=== PATIENT | male | born 1940 | race Caucasian/White ===

== ENCOUNTER → 2017-08-19 08:13 | Outpatient (POV) | payer MEDICARE, SELFPAY | PROVIDERS: Visit Provider Physician Assistant | DX: Z00.00 Encounter for general adult medical examination without abnormal findings (principal) ==

== ENCOUNTER → 2017-11-14 11:49 | Outpatient (CLI) | payer MEDICARE, SELFPAY ==
[2017-11-14 13:38] LABS: Prostate Specific Ag, Diagnost 38.04 ng/mL (0.0-4.0)
== END ==
PROVIDERS: Visit Provider Urology
DX: R97.20 Elevated prostate specific antigen [PSA] (principal)
CPT/HCPCS: 36415; 84153

== ENCOUNTER → 2017-12-16 08:36 | Outpatient (CLI) | payer MEDICARE, SELFPAY ==
--- NOTE | 2017-12-16 08:43 | NM_ITS ---
NM bone scan whole body CLINICAL INDICATION: ITS.REASON: PROSTATE CA ORDERING PHYSICIAN: Kana Lopez MD PATIENT AGE: 77 years Comparison: None DOSE: 27.5 mCi technetium MDP FINDINGS: No focal abnormal areas of increased activity evident that would indicate metastatic disease. There is increased periarticular activity at the left AC joint and mild increase activity in the facet region at L4-L5 on the right. IMPRESSION: Unremarkable bone scan, no evidence of metastatic disease
== END ==
PROVIDERS: PCP Family Medicine; Visit Provider Urology
DX: C61 Malignant neoplasm of prostate (principal)
CPT/HCPCS: 78306; A9503

== ENCOUNTER → 2017-12-17 08:48 | Outpatient (CLI) | payer MEDICARE, SELFPAY ==
[2017-12-17 09:39] LABS: Blood Urea Nitrogen 20 mg/dL (7-18); Creatinine,Serum 1.04 mg/dL (0.70-1.30); Estimated Glomerular Filt Rate 69 ml/min (>60); GFR (African American) 84 ML/MIN (>60)
== END ==
PROVIDERS: Visit Provider Urology
DX: R39.89 Other symptoms and signs involving the genitourinary system (principal)
CPT/HCPCS: 36415; 82565; 84520

== ENCOUNTER → 2017-12-18 09:42 | Outpatient (CLI) | payer MEDICARE, SELFPAY ==
--- NOTE | 2017-12-18 10:14 | CT_ITS ---
CT abdomen pelvis w con CLINICAL INDICATION: ITS.REASON: PROSTATE CANCER ORDERING PHYSICIAN: Kana Lopez MD PATIENT AGE: 77 years COMPARISON: None TECHNIQUE: Axial images obtained with sagittal and coronal reformats. All CT scans at the facility use one or more dose reduction, viz: automated exposure control; ma/kV adjustment per patient size (including targeted exams where dose is matched to indication; i.e. head); or iterative reconstruction technique. PROCEDURE: Oral Contrast: Redicat IV Contrast: 75 mL of Isovue-370. FINDINGS: Images of the lung bases show cardiomegaly with coronary artery calcification. There has been a prior CABG. There is some mild vascular congestion. A subpleural nodular opacity is present in the left costophrenic angle measuring 7 mm. No focal liver lesion. The gallbladder, spleen, adrenal glands, pancreas, and kidneys have an unremarkable appearance. No renal or ureteral calculi or hydronephrosis. There is a moderate amount retained colonic feces. No intestinal obstruction or free air. Reported history of appendectomy. There are scattered diverticula within the sigmoid colon but no evidence of diverticulitis. The prostate is enlarged measuring 5.7 x 4.9 by centimeters transverse, AP, and cephalad to caudad. The left seminal vesicle slightly prominent. There is minimal thickening of the wall of the urinary bladder. There is a mildly prominent lymph node in the left pelvic region measuring 17 x 14 mm. This is just posterior to the left external iliac vein in the mid pelvic area medial to the lower ileum.. No bony destructive lesions. There is a small sclerotic focus in the right femoral head at 5 mm and could be due to small bone island. IMPRESSION: 1. Enlarged prostate. The prostate is somewhat more bulky on the left aspect. 2. Mildly prominent left sided pelvic lymph node posterior to the external iliac vein measuring 17 x 14 mm. 3. Sigmoid diverticulosis. No evidence of diverticulitis
--- NOTE | 2017-12-18 10:28 | HMH.ITSHM ---
ASPIRIN,ATENOLOL,CHLORTHALSIMVASTATIN,DOXASOIN,FINASTERIDE CARBIDOL LEVO
== END ==
PROVIDERS: PCP Family Medicine; Visit Provider Urology
DX: C61 Malignant neoplasm of prostate (principal)
CPT/HCPCS: 74177; Q9967

== ENCOUNTER → 2018-02-17 08:30 | Outpatient (POV) | payer MEDICARE, SELFPAY | PROVIDERS: PCP Family Medicine; Visit Provider Physician Assistant | DX: Z00.00 Encounter for general adult medical examination without abnormal findings (principal) ==

== ENCOUNTER → 2018-03-27 11:27 | Outpatient (CLI) | payer MEDICARE, SELFPAY ==
[2018-03-28 12:37] LABS: PSA, Free 0.02 ng/mL; Prostate Specific Ag 0.2 ng/mL (0.0-4.0)
== END ==
PROVIDERS: PCP Family Medicine; Visit Provider Urology
DX: C61 Malignant neoplasm of prostate (principal); N39.9 Disorder of urinary system, unspecified
CPT/HCPCS: 36415; 84153; 84154

== ENCOUNTER → 2018-05-29 11:54 | Outpatient (CLI) | payer MEDICARE, SELFPAY ==
[2018-05-29 12:42] LABS: Uric Acid 6.3 mg/dL (2.6-7.2)
== END ==
PROVIDERS: Visit Provider Urology
DX: M10.9 Gout, unspecified (principal)
CPT/HCPCS: 36415; 84550

== ENCOUNTER → 2018-08-19 08:06 | Outpatient (POV) | payer MEDICARE, SELFPAY | PROVIDERS: Visit Provider Dermatology | DX: Z00.00 Encounter for general adult medical examination without abnormal findings (principal) ==

== ENCOUNTER → 2018-10-15 14:42 | Outpatient (POV) | payer MEDICARE, SELFPAY | PROVIDERS: Visit Provider Family Medicine | DX: Z00.00 Encounter for general adult medical examination without abnormal findings (principal) ==

== ENCOUNTER → 2018-12-30 09:02 | Outpatient (POV) | payer MEDICARE, SELFPAY | PROVIDERS: Visit Provider Otolaryngology | DX: Z00.00 Encounter for general adult medical examination without abnormal findings (principal) ==

== ENCOUNTER → 2019-01-08 10:26 | Outpatient (CLI) | payer MEDICARE, SELFPAY ==
[2019-01-08 12:38] LABS: Prostate Specific Ag, Diagnost 0.01 ng/mL (0.0-4.0)
== END ==
PROVIDERS: Visit Provider Urology
DX: C61 Malignant neoplasm of prostate (principal)
CPT/HCPCS: 36415; 84153

== ENCOUNTER → 2019-02-17 08:07 | Outpatient (POV) | payer MEDICARE, SELFPAY | PROVIDERS: Visit Provider Dermatology | DX: Z00.00 Encounter for general adult medical examination without abnormal findings (principal) ==

== ENCOUNTER → 2019-02-17 08:46 | Outpatient (CLI) | payer MEDICARE, SELFPAY | PROVIDERS: PCP Family Medicine; Visit Provider Family Medicine | DX: R40.0 Somnolence (principal); G47.9 Sleep disorder, unspecified; G47.33 Obstructive sleep apnea (adult) (pediatric) | CPT/HCPCS: G0399 ==

== ENCOUNTER → 2019-02-18 13:18 | Outpatient (CLI) | payer MEDICARE, SELFPAY ==
--- NOTE | 2019-02-18 13:23 | XR_ITS ---
PROCEDURE: XR CHEST 2V CLINICAL HISTORY: RHEUMATOID ARTHRITIS,FATIGUE Fatigue, former smoker COMPARISON: No exams were available for comparison FINDINGS: Prior CABG. Normal heart size. Patchy density over the left heart border and may be due to pericardial fat pad. No lobar consolidation or collapse. There is an old left 8th rib fracture. IMPRESSION: No acute finding Dictated by: Dinh Barkley MD 02/18/2019 16:21 Signed by: <Electronically signed by Dinh Barkley MD in [facility]> 02/18/2019 16:21
== END ==
PROVIDERS: PCP Family Medicine; Visit Provider Internal Medicine
DX: M05.9 Rheumatoid arthritis with rheumatoid factor, unspecified (principal); R53.83 Other fatigue
CPT/HCPCS: 71046

== ENCOUNTER → 2019-04-17 09:52 | Outpatient (CLI) | payer MEDICARE, SELFPAY | PROVIDERS: PCP Family Medicine; Visit Provider Urology | DX: R42 Dizziness and giddiness (principal) | CPT/HCPCS: 93225 ==

== ENCOUNTER → 2019-04-27 07:20 | Outpatient (CLI) | payer MEDICARE, SELFPAY ==
--- NOTE | 2019-04-27 07:23 | CA_ITS ---
[facility] RADIOLOGICAL CONSULTATION Patient Name : ANA STOUT X-RAY # : [id number] Physician: AYUSH LORENZO AGE: 78Y : 1940 00:00:00 ( M ) Exam : CA ECHO DOPPLER COMPLETE ACC # : [id number] Study Date : 04/27/2019 09:40:32 Patient Class : O FINAL REPORT CLINICAL DATA: FINDINGS: TRANSCRIBED REPORT EXAM: Comprehensive 2D, Doppler, and color-flow Echocardiogram Luncheonette Operator: Consuelo Tipton RVT Ht: 6 ft 2 in Wt: 187lbs BSA: 2.11 BP: 167/62 mmHg Indications: Shortness of Breath, CAD, Hyperlipidemia, Hypertension,CABG,Ex smoker,ERIC 2D Dimensions LVOT 1.38 cm (M/F) 1.5-2.5 M-Mode Dimensions RVDd 2.04 cm (0.9-2.6) LVDd 5.22 cm (3.5-5.7) LVDs 2.79 cm (3.5-5.7) IVSd 1.07 cm (0.6-1.1) PWd 0.96 cm (0.6-1.1) EF (Teich) 77.60% FS 46.60% EDV (Teich) 130.70 mL ESV (Teich) 29.30 mL LV Diastology E/A Ratio 0.91 Mitral Valve MV A Velocity 54.00 (40-130 cm/s) Electronically signed by : IMPRESSION: Dictated by at Transcribed by at
--- NOTE | 2019-04-27 07:23 | NM_ITS ---
APPROVED REPORT Exam: Nuclear Stress Test Indication: SOB, Syncope, CAD, CABG, HTN, Family history Patient Location: Outpatient Stress Tech: Bibiana Pacheco DC Tech:Sophia Stone, ARRT, RT (R)(N) Ht: 6 ft 2 in Wt: 180 lbs HR: 53 bpm BP: 168/76 mmHg BSA: 2.08 m2 BMI: 23.1 History: SOB, Syncope, CAD, CABG, HTN, Family history Procedure: Patient received a 0.4 mg of intravenous Lexiscan, resting heart rate 53 bpm, resting blood pressure 168/76 mmHg, with Lexiscan maximum heart rate achived was 74 bpm which is % of the maximum predicted heart rate and blood pressure was 146/68 mmHg. With Lexiscan, patient denied any complaint of chest pain. Cardiac Stress and Resting SPECT Images: Cardiac Stress and Resting SPECT images were obtained using technetium 99m Myoview 30.1 mCi stress and 10.34 mCi at rest. Normal ejection fraction of 71% No fixed or reversible defects evident that would indicate infarction or ischemia No evidence of ischemia or infarction Conclusion: Normal ejection fraction of 71% No fixed or reversible defects evident that would indicate infarction or ischemia No evidence of ischemia or infarction Electronically signed by : Dinh Barkley MD 04/29/2019 15:52:50
--- NOTE | 2019-04-27 07:23 | CA_ITS ---
APPROVED REPORT Philosophy Specialist: Consuelo Tipton RVT Laterality: Bilateral Study Quality: Good Indications: dizziness, LEXI Risk Factors Hypertension: Hyperlipidemia CAD, Surgery/Intervention Endarterectomy: right Date: 2006 Doppler Spectral Velocity Analysis ECA (R) 76.00/3.50 cm/s ECA (L) 107.50/7.40 cm/s dICA (R) 93.50/21.80 cm/s dICA (L) 126.90/21.30 cm/s Gurpreet (R) 92.50/18.70 cm/s Gurpreet (L) 100.70/23.70 cm/s pICA (R) 101.40/18.20 cm/s pICA (L) 385.60/67.90 cm/s dCCA (R) 68.90/9.00 cm/s dCCA (L) 85.40/14.10 cm/s mCCA (R) 89.60/9.60 cm/s pCCA (L) 86.10/15.30 cm/s pCCA (R) 110.30/10.00 cm/s Vert (L) 46.70/8.80 cm/s Vert (R) 58.40/8.80 cm/s ICA/CCA 4.52 ICA/CCA 1.47 Findings Study suggests less than 20% stenosis of the right internal carotid artery, unchanged from 12/13/16 study. Study suggests 70-99% stenosis of the left internal carotid artery, worsened from the 12/13/16 study. Antegrade flow seen bilateral vertebral arteries. Conclusion Study suggests less than 20% stenosis of the right internal carotid artery, unchanged from 12/13/16 study. Study suggests 70-99% stenosis of the left internal carotid artery, worsened from the 12/13/16 study. Consider CTA for further evaluation Antegrade flow seen bilateral vertebral arteries. Electronically signed by : Dinh Barkley MD 04/29/2019 17:35:48
--- NOTE | 2019-04-27 07:23 | CA_ITS ---
APPROVED REPORT Exam: Pharmacologic Technologist: colleen dumont, Ht: 6 ft 2 in Wt: 180 lbs BSA: 2.08 m2 HR: 53 bpm BP: 168/76 mmHg Indications: SOB Medical History Medications: Asa,,,,, TAMSULOSIN,,,,, DOxazosin,,,,, Finasteride,,,,, EnBREL,,,,, Carbidopa,,,,, MegESTROL,,,,, AtenELOL,,,,, Mirabegron,,,,, Simvasatin,,,,, Leflunomide,,,,, Myrbetric,,,,, Allergies: No known drug allergies Cardiac Risk Factors: HTN, Hyperlipidemia Stress Test Details Test: LEXISCAN HR Resting HR: 57 bpm Max Heart Rate (APMHR): 142 bpm Max HR Achieved: 87 bpm Target HR (85% APMHR): 120 bpm % of APMHR: 61 BP Resting BP: 168.0/76.0 mmHg Max BP: 156.0/73.0 mmHg Recovery BP: 146.0/69.0 mmHg ECG Resting ECG: Sinus [place] Clinical Exercise duration: 04:00 min Highest Stage Achieved: Exercise capacity: 1.0 METs Stress ECG Conclusion Symptoms: No CP, No SOB Arrhythmias/Ectopy: Occ PAC, Occ Atrial Couplets, Occ PVC St-T Chages:less than 1.[address] depression. Lexiscan portion completed. Patient had no complaints at peak infusion. Images to follow. Test Summary REST 04:02 . . 57 . . . . Stage 1 01:00 . . 87 . . . . Stage 2 01:00 . . 73 . 146/ 68 . . Stage 3 01:00 . . 74 . 141/ 69 . . Stage 4 01:00 . . 71 . . . Stop exercise at 04:00 RECOVERY 01:00 . . 68 . 149/ 70 . . RECOVERY 02:00 . . 68 . 146/ 69 . . RECOVERY 03:00 . . 61 . 143/ 69 . . RECOVERY 04:00 . . 67 . 143/ 69 . . RECOVERY 04:49 . . 68 . 156/ 73 . . Electronically signed by : Malik Morin, 04/28/2019 08:32:06
--- NOTE | 2019-04-27 09:06 | HMH.ITSHM ---
Current Home Medications as stated by this patient Nicko Baumann or business process representative. []ATENOLOL DOXAZOSIN FINASTERIDE SIMVASTATIN TAMSULOSIN MYRBETRIQ CARBIDOPA LEFLUNOMIDE MEGACE PREDNISONE ASA ENBREL
== END ==
PROVIDERS: PCP Family Medicine; Visit Provider Internal Medicine
DX: C61 Malignant neoplasm of prostate (principal); E78.5 Hyperlipidemia, unspecified; G47.33 Obstructive sleep apnea (adult) (pediatric); I10 Essential (primary) hypertension; I25.810 Atherosclerosis of coronary artery bypass graft(s) without angina pectoris; I65.23 Occlusion and stenosis of bilateral carotid arteries; R06.09 Other forms of dyspnea; R42 Dizziness and giddiness; Z82.49 Family history of ischemic heart disease and other diseases of the circulatory system; Z87.891 Personal history of nicotine dependence; Z95.1 Presence of aortocoronary bypass graft; Z98.890 Other specified postprocedural states
CPT/HCPCS: 78452; 93017; 93306; 93880; A9502; J2785

== ENCOUNTER → 2019-05-19 13:08 | Outpatient (CLI) | payer MEDICARE, SELFPAY ==
[2019-05-19 16:01] LABS: Blood Urea Nitrogen 20 mg/dL (7-18); Creatinine,Serum 0.92 mg/dL (0.70-1.30); Estimated Glomerular Filt Rate 80 ml/min (>60); GFR (African American) 96 ML/MIN (>60)
== END ==
PROVIDERS: Visit Provider Thoracic Surgery (Cardiothoracic Vascular Surgery)
DX: Z01.818 Encounter for other preprocedural examination (principal)
CPT/HCPCS: 36415; 82565; 84520

== ENCOUNTER → 2019-05-20 10:12 | Outpatient (CLI) | payer MEDICARE, SELFPAY ==
--- NOTE | 2019-05-20 10:15 | CT_ITS ---
Procedure: CT ANGIO NECK CLINICAL HISTORY: CAROTID STENOSIS COMPARISON: CA CAROTID DUPLEX BI from 04/27/2019 TECHNIQUE: IV Contrast: 100ml Optiray 350 Axial images obtained with sagittal and coronal reformats. All CT scans at the facility use one or more dose reduction, viz: automated exposure control, ma/kV adjustment per patient size (including targeted exams where dose is matched to indication, i.e. head), or iterative reconstruction technique. FINDINGS: Aortic arch: There are some atheromatous changes at the aortic arch calcific plaque at the ostium of the right innominate artery causing approximately 30 percent stenosis. Right common carotid artery has an unremarkable appearance. There are atheromatous changes in the carotid bulb and proximal ICA with less than 20 percent stenosis the right ICA. No distal ICA stenosis is evident. Small amount of plaque is present at the proximal aspect of the right vertebral. Prominent calcific plaque is present involving the proximal left vertebral with high-grade stenosis of 80 percent in The left common carotid artery shows some minimal calcific plaque. Calcific plaque is present at the left bulb and proximal ICA however, no significant stenosis is evident. Approximately 20 percent stenosis is present at the proximal left ICA. Plaque is present at the ostium of the left external carotid artery. This is causing approximately 60-70 percent stenosis of the proximal external carotid artery. Perhaps this was inadvertently the artery of interrogation that was felt to represent the ICA on the duplex scan. There Is a noncalcified 7 mm nodule in the right upper lobe. Scarring is present in the lung apices. IMPRESSION: 1. No hemodynamic significant stenotic lesion evident. There is approximately 20 percent stenosis of the proximal ICAs on both sides. There is calcific plaque in the left bulb and there is 50 percent stenosis of the proximal external carotid artery on the left. 2. High-grade stenosis of the ostium of the left vertebral 3. 7 mm noncalcified nodule right upper lobe. Recommend six-month follow-up Dictated by: Dinh Barkley MD 05/20/2019 17:23 Electronically signed by Dinh Barkley MD in [facility] 05/21/2019 17:40
== END ==
PROVIDERS: PCP Family Medicine; Visit Provider Thoracic Surgery (Cardiothoracic Vascular Surgery)
DX: I65.23 Occlusion and stenosis of bilateral carotid arteries (principal)
CPT/HCPCS: 70498; Q9967

== ENCOUNTER → 2019-07-09 14:32 | Outpatient (CLI) | payer MEDICARE, SELFPAY ==
[2019-07-09 16:26] LABS: Prostate Specific Ag, Diagnost 0 ng/mL (0.0-4.0)
== END ==
PROVIDERS: Visit Provider Urology
DX: Z85.46 Personal history of malignant neoplasm of prostate (principal)
CPT/HCPCS: 36415; 84153

== ENCOUNTER → 2019-08-18 08:18 | Outpatient (POV) | payer MEDICARE, SELFPAY | PROVIDERS: Visit Provider Dermatology | DX: Z00.00 Encounter for general adult medical examination without abnormal findings (principal) ==

== ENCOUNTER → 2019-09-01 08:52 | Outpatient (POV) | payer MEDICARE, SELFPAY | PROVIDERS: PCP Family Medicine; Visit Provider Dermatology | DX: Z00.00 Encounter for general adult medical examination without abnormal findings (principal) ==

== ENCOUNTER → 2020-01-12 10:57 | Outpatient (CLI) | payer MEDICARE, SELFPAY ==
[2020-01-12 13:00] LABS: Prostate Specific Ag, Diagnost < 0.064 ng/ml (0.0-4.0)
== END ==
PROVIDERS: Visit Provider Urology
DX: C61 Malignant neoplasm of prostate (principal)
CPT/HCPCS: 36415; 84153

== ENCOUNTER → 2020-02-16 07:59 | Outpatient (POV) | payer MEDICARE, SELFPAY | PROVIDERS: Visit Provider Dermatology | DX: Z00.00 Encounter for general adult medical examination without abnormal findings (principal) ==

== ENCOUNTER → 2020-07-15 14:44 | Outpatient (CLI) | payer MEDICARE, SELFPAY ==
[2020-07-15 16:18] LABS: Prostate Specific Ag, Diagnost < 0.064 ng/ml (0.0-4.0)
== END ==
PROVIDERS: Visit Provider Urology
DX: C61 Malignant neoplasm of prostate (principal)
CPT/HCPCS: 36415; 84153

== ENCOUNTER → 2021-01-12 10:59 | Outpatient (CLI) | payer MEDICARE, SELFPAY ==
[2021-01-12 12:38] LABS: Prostate Specific Ag, Diagnost 0.091 ng/ml (0.0-4.0)
== END ==
PROVIDERS: Visit Provider Urology
DX: C61 Malignant neoplasm of prostate (principal)
CPT/HCPCS: 36415; 84153

== ENCOUNTER → 2021-06-07 12:59 | Outpatient (CLI) | payer MEDICARE, SELFPAY ==
--- NOTE | 2021-06-07 13:07 | XR_ITS ---
PROCEDURE: XR HIP RT 2-3V W/PELVIS CLINICAL INDICATION: RT HIP PAIN COMPARISON: No exams were available for comparison FINDINGS: Minimal osteoarthritic changes are present involving the right hip. No acute fracture or dislocation. No lytic or blastic change. AP view of the pelvis also shows minimal osteoarthritic change of the left hip. There is generalized vascular calcification. IMPRESSION: Mild osteoarthritis Dictated by: Dinh Barkley MD 06/07/2021 15:51 Dinh Barkley MD in [facility] 06/07/2021 15:51
== END ==
PROVIDERS: PCP Family Medicine; Visit Provider Family Medicine
DX: M25.551 Pain in right hip (principal)
CPT/HCPCS: 73502

== ENCOUNTER → 2021-07-17 15:08 | Outpatient (CLI) | payer MEDICARE, SELFPAY ==
[2021-07-17 16:43] LABS: Prostate Specific Ag, Diagnost 0.098 ng/ml (0.0-4.0)
== END ==
PROVIDERS: PCP Family Medicine; Visit Provider Urology
DX: C61 Malignant neoplasm of prostate (principal)
CPT/HCPCS: 36415; 84153

== ENCOUNTER 2021-07-28 08:00 | Outpatient (RCR) | payer MEDICARE, SELFPAY ==
--- NOTE | 2021-07-03 15:31 | HMH.PTOPEV ---
PT Outpatient Evaluation Rehab PT Outpatient Evaluation Start: 07/03/21 15:18 Freq: Status: Active Protocol: Document 07/03/21 15:18 MISSY (Rec: 07/03/21 15:31 MISSY [id number]) Electronically Signed By Michel Bruce, PT 07/03/21 15:18 Outpatient Therapy Subjective History Subjective History Pt reports insidious onset lateral right hip pain beginning ~6months ago. Pt reports RA diagnosis ~3 yrs ago, 'but the right hip is giving me the most trouble out of everything right now'. Pt reports left sidelying is painful on right lateral hip, and hip pain 'stays very localized'. Pt also reports ' injection only helped for a day'. Chief Complaint Pain,Stiff,Weakness Symptom Type Ache,Sharp,Dull,Stabbing Symptoms Relieved By Rest/Positioning,OTC Meds Symptoms Aggravated By Standing,Walking Prior Functional Limitations Standing,Squatting,Walking Current Functional Limitations Standing,Squatting,Walking Symptom Description Constant but Variable Level of pain today (0-10) 5 Pain scale - at its best (0-10) 3 Pain scale - at its worst (0-10) 8 Hip/Knee Eval Gait Observation General Gait Pattern Observation Antalgic Gait Assistive Device Assistive Devices None / NA Palpation Tenderness right Knee Palpation Overall Comment 3/4 grt. tro. MMT Hip Flexion Strength Grade 4- Good- Hip Abduction Strength Grade 3+ Fair+ Hip Adduction Strength Grade 3+ Fair+ Gluteus Elvin Strength Grade 4- Good- Hip External Rotation Strength Grade 4 Good Hip Internal Rotation Strength Grade 4 Good Knee Extension Strength Grade 5 Normal Knee Flexion Strength Grade 5 Normal ROM Hip Flexion w/Knee Flexed Passive Range 0-108 of Motion (degrees) Hip Flexion w/Knee Extended Passive 0-67 Range of Motion (degrees) Hip External Rotation Passive Range of 0-51 Motion (degrees) Hip Internal Rotation Passive Range of 0-46 Motion (degrees) Special Tests Hip Piriformis Test Negative Right Sciatic Nerve Tension Test Negative Right Hip Scouring (Quadrant) Test Negative Right Outpatient Therapy Assessment Impairments Problems/Impairmments Palpation Tenderness,Impaired Range of Motion,Impaired Strength,Impaired Gait Pattern ,Impaired Walking,Impaired S
== END 2021-07-28 08:05 | disposition home or self-care (01) ==
LOC: PT 08:00
PROVIDERS: PCP Family Medicine; Visit Provider Family Medicine
DX: M70.61 Trochanteric bursitis, right hip (principal)
CPT/HCPCS: 97010; 97014; 97033; 97035; 97110; 97163; G0283

== ENCOUNTER → 2021-07-31 12:44 | Outpatient (CLI) | payer MEDICARE, SELFPAY ==
[2021-08-01 06:50] LABS: Covid-19 Nasal PCR Sendout Lex POSITIVE
== END ==
PROVIDERS: Visit Provider Nurse Practitioner
DX: U07.1 COVID-19 (principal)
CPT/HCPCS: C9803; U0004; U0005

== ENCOUNTER 2021-08-12 10:22 | Emergency (ER) | payer MEDICARE, SELFPAY ==
[2021-08-12 10:19] VITALS: BP 142/70; PULSE 65; RESP 14; TEMP 36.7; O2SAT 99; BMI 23.1
--- NOTE | 2021-08-12 10:28 | CT_ITS ---
PROCEDURE INFORMATION: Exam: CT Lumbar Spine Without Contrast Exam date and time: 08/12/2021 10:28 AM Age: 81 years old Clinical indication: Low back pain; Additional info: Fell 3 weeks ago TECHNIQUE: Imaging protocol: Computed tomography images of the lumbar spine without contrast. Radiation optimization: All CT scans at this facility use at least one of these dose optimization techniques: automated exposure control; mA and/or kV adjustment per patient size (includes targeted exams where dose is matched to clinical indication); or iterative reconstruction. COMPARISON: BONEWB NM bone scan whole body 12/16/2017 1:17 PM FINDINGS: Vertebrae: Acute/subacute compression fracture involving the superior endplate of L1 with up to 50% central height loss and 3 mm bony retropulsion. Osteopenia. Discs/Spinal canal/Neural foramina: There is at least mild spinal canal stenosis at the level of L1 secondary to the retropulsed bone. There is a large right eccentric inferiorly dissecting disc extrusion at the level of L3-L4 effacing the right lateral recess and producing moderate to severe spinal canal stenosis. There is moderate to severe spinal canal stenosis at L4-L5 secondary to degenerative changes. Moderate to severe neural foraminal stenosis at L4-L5 and L5-S1 on the left. Soft tissues: Unremarkable. IMPRESSION: 1. Acute/subacute compression fracture involving the superior endplate L1 with up to 50% central height loss and 3 mm bony retropulsion resulting at least mild spinal stenosis. 2. Moderate to severe spinal canal stenosis at L3-L4 and L4-L5 secondary to degenerative changes including a large inferiorly dissecting disc extrusion at L3-L4.
[2021-08-12 10:30] VITALS: BP 125/58; PULSE 57; O2SAT 98
--- NOTE | 2021-08-12 10:30 | PC.NURSE ---
Notified Rad of CT order
--- NOTE | 2021-08-12 10:46 | HMH.EDGENADL ---
ED Disposition Clinical Impression: Lumbar disc disease Lumbar compression fracture Qualifiers: Encounter type: initial encounter Lumbar vertebra fracture level: L1 Qualified Code(s): S32.010A - Wedge compression fracture of first lumbar vertebra, initial encounter for closed fracture Disposition: Home, Self-Care Condition on Discharge: Fair Instructions: DI for Vertebral Fracture Additional Instructions: Continue to use walker. [place] as needed for pain. Follow-up with orthopedic spine surgeon: Dr. Mildred Quiroz [facility] [place] Office [address] [place] [address] OR [facility] [address], [place], [place] [id number] Additional instructions for BACK PAIN: Return immediately if back pain becomes intolerable, or if fever, numbness or weakness of your legs, loss of control of your bowels or bladder. Additional instructions for CONTROLLED SUBSTANCES: You have been prescribed a medication that is a controlled substance. Controlled substances include pain medications known as opiates and sedative nerve medications known as benzodiazepines. Tramadol, fioricet, and gabapentin are also controlled substances. Some common opiates include: Codeine (such as Tylenol #3) Hydrocodone (Vicodin, Lortab, Lorcet, [place]) Oxycodone (Percocet, Percodan, Oxycodone, Oxy IR) Some common benzodiazepines include: Diazepam (Valium) Lorazepam (Ativan) Alprazolam (Xanax) Clonazepam (Klonopin) Oxazepam (Serax) All of these controlled substances are highly addictive and frequently abused. Misuse can and frequently does lead to addiction as well as overdose and . Medication should be stored in a locked cabinet or other secure storage unit. Do not store the medication in a motor vehicle. Short term supplies, 3 days or less, are prescribed because of the highly addictive nature of the medication. Any of the controlled substance medication NOT taken should be disposed of properly and NOT SAVED. The recommended method of disposing of unused medications is: Place the medicines in a sealable plastic bag. If the medicine is a solid, crush it or add water to dissolve it. Add something undesirable (cat litter, coffee grounds, etc.) Dispose of sealed bag in household trash Do not flush or pour unused medicines down a sink or drain. Controlled substances should not be shared, given away or sold. Because of the addictive nature and frequent abuse, these medications are sometimes stolen. These medications should be kept in a safe place where they cannot be stolen. Do not keep them in your car or purse. Lost or stolen prescriptions for controlled substances WILL NOT BE REFILLED in this emergency department, regardless of whether a police report was filed. Prescriptions: Hydrocod/Acet 5/325 mg [[place] 5/325mg tablet] 1 tab PO Q6HP PRN #20 tab PRN Reason: Pain Transmission Status: Pending to [facility] Referrals: Pancho Singh MD [Primary Care Provider] - - Critical Care Critical Care Time: No Attestation: On 08/12/21, the high probability of a clinically significant, sudden or life threatening deterioration of the following system(s) required my full and direct attention, intervention and personal management. The time I documented below is in addition to time spent performing reported procedures but includes the following listed in this critical care notation. Medical Decision Making - Harlan Inquiry Pt receiving controlled substance: Yes [place] was queried for this patient: Yes Risks and benefits of using a controlled substance: were discussed with pt by me Vital Signs: 08/12/21 10:19 08/12/21 10:30 08/12/21 11:00 Temperature 98.0 F Temperature Source Oral Pulse Rate 57 L 63 Pulse Rate [Right Radial] 65 Respiratory Rate 14 Blood Pressure 125/58 L 142/72 H Blood Pr
[2021-08-12 11:00] VITALS: BP 142/72; PULSE 63; O2SAT 99
--- NOTE | 2021-08-12 11:19 | PC.NURSE ---
pt to CT scan
--- NOTE | 2021-08-12 11:29 | PC.NURSE ---
pt is back from CT scan
[2021-08-12 11:37] VITALS: BP 155/68; PULSE 56; O2SAT 99
[2021-08-12 12:00] VITALS: BP 129/60; PULSE 57; O2SAT 97
--- NOTE | 2021-08-12 12:34 | PC.NURSE ---
placed a call to [facility] to get phone manager Ortho Physician.
--- NOTE | 2021-08-12 12:39 | PC.NURSE ---
spoke with Rural Carrier Associate at [facility] about getting concrete batch plant operator MD for Ortho. Placed me on hold at this time.
--- NOTE | 2021-08-12 12:40 | PC.NURSE ---
product blending supervisor at [facility] had Dr. Alvarado from [facility] on for Dr. Mcallister to speak with. Dr. Mcallister speaking with him at this time.
--- NOTE | 2021-08-12 12:48 | PC.NURSE ---
COVID swab obtained and sent to the lab
--- NOTE | 2021-08-12 13:11 | PC.NURSE ---
assisted patient out into the car with family.
[2021-08-12 13:15] VITALS: BP 166/75; PULSE 67; RESP 16; TEMP 36.8; O2SAT 97
== END 2021-08-12 13:15 | disposition home or self-care (01) ==
PROVIDERS: Emergency Provider Emergency Medicine; PCP Family Medicine
DX: S32.010A Wedge compression fracture of first lumbar vertebra, initial encounter for closed fracture (principal); W01.0XXA Fall on same level from slipping, tripping and stumbling without subsequent striking against object, initial encounter; Y92.012 Bathroom of single-family (private) house as the place of occurrence of the external cause; I10 Essential (primary) hypertension; I25.10 Atherosclerotic heart disease of native coronary artery without angina pectoris; E78.5 Hyperlipidemia, unspecified
CPT/HCPCS: 72131; 99282

== ENCOUNTER 2021-10-24 11:00 | Outpatient (RCR) | payer MEDICARE, SELFPAY | END 2021-10-24 11:05 | disposition home or self-care (01) | LOC: PT 11:00 | PROVIDERS: PCP Family Medicine; Visit Provider Family Medicine | DX: M70.61 Trochanteric bursitis, right hip (principal) | CPT/HCPCS: 97110; 97140; 97163; 97760 ==

== ENCOUNTER → 2022-01-09 08:47 | Outpatient (POV) | payer MEDICARE, SELFPAY | PROVIDERS: Visit Provider Dermatology | DX: Z00.00 Encounter for general adult medical examination without abnormal findings (principal) ==

== ENCOUNTER → 2022-01-15 14:36 | Outpatient (CLI) | payer MEDICARE, SELFPAY ==
[2022-01-15 16:12] LABS: Prostate Specific Ag, Diagnost 0.186 ng/ml (0.0-4.0)
== END ==
PROVIDERS: PCP Nurse Practitioner Family; Visit Provider Urology
DX: C61 Malignant neoplasm of prostate (principal)
CPT/HCPCS: 36415; 84153

== ENCOUNTER → 2022-03-20 15:09 | Outpatient (POV) | payer MEDICARE, SELFPAY | PROVIDERS: Visit Provider Dermatology | DX: Z00.00 Encounter for general adult medical examination without abnormal findings (principal) ==

== ENCOUNTER → 2022-05-22 14:46 | Outpatient (POV) | payer MEDICARE, SELFPAY | PROVIDERS: Visit Provider Dermatology | DX: Z00.00 Encounter for general adult medical examination without abnormal findings (principal) ==

== ENCOUNTER 2022-07-01 21:57 | Emergency (ER) | payer MEDICARE, SELFPAY ==
[2022-07-01 21:57] VITALS: BP 138/61; PULSE 75; RESP 18; TEMP 36.7; O2SAT 97; BMI 23.1
--- NOTE | 2022-07-01 22:01 | ECG_ITS ---
APPROVED REPORT Exam: Resting ECG HR:74 bpm ECG Measurements Heart Rate 74 AXES QRSd 98 QRS 69 QT 392 T 74 QTc 420 Conclusion ATRIAL FIBRILLATION NONSPECIFIC ST & T-WAVE ABNORMALITY ABNORMAL RHYTHM ECG UNCONFIRMED REPORT Electronically signed by : Pancho Desai MD 07/02/2022 20:03:05
--- NOTE | 2022-07-01 22:04 | XR_ITS ---
PROCEDURE INFORMATION: Exam: XR Chest Exam date and time: 07/01/2022 10:20 PM Age: 82 years old Clinical indication: Other: Weakness TECHNIQUE: Imaging protocol: Radiologic exam of the chest. Views: 1 view. COMPARISON: CR XR CHEST 2V 02/18/2019 1:30 PM FINDINGS: Lungs: normal pulmonary vessels. Minimal patchy opacification left infrahilar region. No focal airspace consolidation. Pleural spaces: Unremarkable. No pleural effusion. No pneumothorax. Heart/Mediastinum: Mild cardiomegaly. Sternotomy wires. Bones/joints: See Heart/Mediastinum finding. IMPRESSION: 1. Mild cardiomegaly. Sternotomy wires. 2. Normal pulmonary vessels. 3. Minimal patchy opacification left infrahilar region. 4. No focal airspace consolidation.
--- NOTE | 2022-07-01 22:10 | CT_ITS ---
PROCEDURE INFORMATION: Exam: CT Lumbar Spine Without Contrast Exam date and time: 07/01/2022 10:45 PM Age: 82 years old Clinical indication: Numbness and weakness; Prior surgery; Surgery date: 6+ months; Additional info: Numbness bilateral lower exterminty TECHNIQUE: Imaging protocol: Computed tomography of the lumbar spine without contrast. Radiation optimization: All CT scans at this facility use at least one of these dose optimization techniques: automated exposure control; mA and/or kV adjustment per patient size (includes targeted exams where dose is matched to clinical indication); or iterative reconstruction. COMPARISON: CT LUMBAR SPINE WO CON 08/12/2021 11:21 AM FINDINGS: Bones/joints: L1 50% compression fracture with vertebroplasty cement seen. Multifocal areas facet arthropathy and ligamentum flavum thickening with apparent canal spinal stenosis at L3-L4, L4-L5 levels . Vasculature: The aorta demonstrates mild atherosclerotic calcification. Soft tissues: Unremarkable. IMPRESSION: 1. L1 50% compression fracture with vertebroplasty cement seen. 2. Multifocal areas facet arthropathy and ligamentum flavum thickening with apparent canal spinal stenosis at L3-L4, L4-L5 levels .
--- NOTE | 2022-07-01 22:10 | CT_ITS ---
PROCEDURE INFORMATION: Exam: CT Abdomen And Pelvis With Contrast Exam date and time: 07/01/2022 10:47 PM Age: 82 years old Clinical indication: Other: Numbness bilateral lower extermity; Additional info: Numbness bilateral lower exterminty. Additional history prostate cancer. TECHNIQUE: Imaging protocol: Computed tomography of the abdomen and pelvis with contrast. Radiation optimization: All CT scans at this facility use at least one of these dose optimization techniques: automated exposure control; mA and/or kV adjustment per patient size (includes targeted exams where dose is matched to clinical indication); or iterative reconstruction. Contrast material: ISOVUE; Contrast volume: 75 ml; Contrast route: IV; COMPARISON: ABDPELW CT abdomen pelvis w con 12/18/2017 10:21 AM FINDINGS: Heart: Cardiomegaly with moderate coronary artery calcifications. Sternotomy wires. Prior CABG. Mediastinal space: Distal esophageal wall thickening. Liver: Normal. No mass. Gallbladder and bile ducts: Multiple gallstones. Pancreas: Normal. No ductal dilation. Spleen: Normal. No splenomegaly. Adrenal glands: Normal. No mass. Kidneys and ureters: Normal. No hydronephrosis. Stomach and bowel: Scattered colonic diverticula. Appendix: No evidence of appendicitis. Intraperitoneal space: Unremarkable. No free air. No significant fluid collection. Vasculature: The aorta demonstrates moderate atherosclerotic calcification. Lymph nodes: Decreased size of left internal iliac node compared with 12/18/2017. Urinary bladder: Unremarkable as visualized. Reproductive: Stable prostatomegaly. Bones/joints: L1 50% compression fracture with vertebroplasty cement seen. Multifocal areas facet arthropathy and ligamentum flavum thickening with apparent canal spinal stenosis at L3-L4, L4-L5 levels Soft tissues: Small fat filled inguinal hernias. IMPRESSION: 1. No free air or fluid or adenopathy. 2. Distal esophageal wall thickening. 3. Multiple gallstones. 4. Stable prostatomegaly. 5. Decreased size of left internal iliac node compared with 12/18/2017. 6. L1 50% compression fracture with vertebroplasty cement seen. 7. Multifocal areas facet arthropathy and ligamentum flavum thickening with apparent canal spinal stenosis at L3-L4, L4-L5 levels. MRI recommended to further delineate these findings. 8. Other (less critical/noncritical/incidental) findings as above; please refer to the body of report for further details.
[2022-07-01 22:15] LABS: Basophils # 0.1 K/mm3 (0-0.2); Basophils % 1.5 % (0.1-2.0); Eosinophils # 0.1 K/mm3 (0.0-0.4); Eosinophils % 1.3 % (0.1-12.0); Hematocrit 38.8 % (42.0-52.0); Hemoglobin 13.1 g/dL (14.1-18.0); Lymphocytes # 2.4 K/mm3 (0.7-4.5); Lymphocytes % 51.4 % (10-50); Mean Corpuscular HGB Conc 33.7 g/dL (31.8-35.4); Mean Corpuscular Hemoglobin 30.6 pg (27.0-31.2); Mean Corpuscular Volume 90.8 fl (80-94); Mean Platelet Volume 8.5 fl (7.4-10.4); Monocytes # 0.9 K/mm3 (0.1-1.0); Monocytes % 18.4 % (1.7-9.3); Neutrophils # 1.3 K/mm3 (1.8-7.8); Neutrophils % 27.4 % (37.0-80.0); Platelet Count 208 K/mm3 (142-424); Red Blood Count 4.27 M/mm3 (4.60-6.20); Red Cell Distribution Width 13.9 % (11.5-17.5); White Blood Count 4.7 K/mm3 (4.8-10.8)
[2022-07-01 22:17] LABS: Chloride 99 mmol/L (98-107); Potassium 3.1 mmoL/L (3.5-5.1); Sodium 138 mmol/L (136-145)
[2022-07-01 22:20] LABS: Alanine Aminotransferase 29 U/L (12-78); Albumin Level 3.9 g/dl (3.5-5.0); Albumin/Globulin Ratio 1.1 (1.1-1.8); Alkaline Phosphatase 68 U/L (38-126); Anion Gap 11.1 mEq/L (5-15); Aspartate Amino Transferase 33 U/L (17-59); Bilirubin,Total 0.6 mg/dl (0.2-1.3); Blood Urea Nitrogen 23 mg/dl (9-20); Carbon Dioxide 31 mmol/L (22.0-30.0); Creatinine Clearance Estimated 66 mL/min (50-200); Estimated Glomerular Filt Rate 81 ml/min (>60); GFR (African American) 98 ML/MIN (>60); Globulin 3.5 g/dL (1.3-3.2); Glucose 159 mg/dl (74-100); Total Protein,Serum 7.4 g/dl (6.3-8.2)
[2022-07-01 22:21] LABS: Calcium 9.1 mg/dl (8.4-10.2)
[2022-07-01 22:22] LABS: Coronavirus 19, PCR Not Detected (NotDetected); Influenza A, PCR Not Detected (NotDetected); Influenza B, PCR Not Detected (NotDetected)
[2022-07-01 22:24] LABS: MANUAL DIFFERENTIAL MANUAL DIFFERENTIAL (MANUAL DIFF)
[2022-07-01 22:32] LABS: Troponin I < 0.01 ng/ml (0.00-0.034)
[2022-07-01 22:48] LABS: Microscopic, Urine URINE MICROSCOPIC (MICROSCOPIC)
[2022-07-01 23:00] VITALS: BP 139/60; PULSE 82; RESP 18; O2SAT 96
[2022-07-01 23:13] LABS: Appearance,Urine CLEAR (Clear); Bilirubin,Urine Negative (Negative); Blood, Urine Negative (Negative); Color,Urine YELLOW (Yellow); Glucose,Urine (UA) Negative (Negative); Ketones,Urine Negative (Negative); Leukocyte Esterase,Urine Negative (Negative); Nitrate,Urine Negative (Negative); Protein,Urine TRACE (Negative); Specific Gravity, Urine >= 1.030 (1.005-1.030); Urobilinogen,Urine 0.2 EU/dl (0.2)
[2022-07-01 23:23] LABS: RBC,Urine Occasional #/hpf (0-3); Squamous Epithelial Cell,Urine Occasional #/hpf (0-5); Uric Acid Crystals,Urine 1+ /lpf; WBC,Urine Occasional #/hpf (0-3)
[2022-07-01 23:31] VITALS: BP 113/53; PULSE 67; RESP 16; O2SAT 97
[2022-07-01 23:36] LABS: Eosinophils % 2 % (0-3); Lymphocytes % 53 % (10-50); Monocytes % 11 % (2-9); Neutrophils % 34 % (42-76); Total Cells Counted 100
[2022-07-01 23:37] LABS: Platelet Estimate Normal; RBC Morphology Normal
[2022-07-02] VITALS: BP 136/52; PULSE 71; RESP 17; O2SAT 96
--- NOTE | 2022-07-02 00:05 | HMH.EDWEAK ---
Discharge Plan Disposition Patient Disposition: Home, Self-Care Prescriptions Prescriptions: New prednisone [prednisone] 20 mg tablet 20 mg PO BID Qty: 10 0RF No Action bisoprolol fumarate 10 mg tablet 10 mg PO DAILY chlorthalidone 50 mg tablet 50 mg PO DAILY chlorthalidone 25 mg tablet 25 mg PO DAILY aspirin 81 mg tablet,delayed release (DR/EC) 81 mg PO DAILY simvastatin 10 mg tablet 10 mg PO QPM carbidopa-levodopa 25-250 mg tablet,disintegrating 1 tab PO DAILY doxazosin 4 mg tablet 2 mg PO QHS Enbrel 25 mg/0.5 mL (0.5) syringe 25 mg SQ QWEEK Myrbetriq 25 mg tablet extended release 24 hr 25 mg PO DAILY megestrol 20 mg tablet 10 mg PO DAILY leflunomide [Arava] 20 mg tablet 20 mg PO DAILY oxybutynin chloride 5 mg tablet 5 mg PO HS Qty: 90 3RF oxybutynin chloride 5 mg tablet 5 mg PO DAILY Qty: 90 3RF hydrocodone-acetaminophen 1 TAB tablet 1 tab PO Q6HP PRN (Reason: Pain) Qty: 20 0RF Referrals Follow up/Referrals: Trenton Mo MD [Primary Care Provider] - See instructions Clinical Impressions Clinical Impression: Lumbar disc disease, Acute hypokalemia, Neuropathy Instructions Patient Instructions: DI for Lumbar Radiculopathy Discharge ED Provider: Kye Linton Weakness HPI General Chief complaint: Weakness Stated complaint: numbness in leg, ams Time Seen by Provider: 07/01/22 22:30 Mode of Arrival: EMS Source of Information: Patient and EMS Limitations: No Limitations Description of Symptoms (Recalled from ER Triage Doc. by RN): EMS called out weakness and bilateral tinging and numbness in lower extermity. pt has appointment with neurologist. pt states he became weak yesterday. History of Present Illness HPI Narrative: pt with increased weakness and neuropathic pain sx to lower ext has hx of this and has pending neuro appt this week - no cauda equina sx - no fever/rash or trauma Complaint: generalized weakness, numbness and tingling Onset (ago): day(s) Duration: intermittent Location: LLE and RLE Migration: none Severity: moderate Quality: tingling Associated symptoms: denies other symptoms Related Data Home Medications Medication Instructions Recorded Confirmed aspirin 81 mg tablet,delayed 81 mg PO DAILY Heart disease 05/17/18 07/18/22 release carbidopa 25 mg-levodopa 250 mg 1 tab PO DAILY parkisons 11/14/17 01/15/22 disintegrating tablet simvastatin 10 mg tablet 10 mg PO QPM Cholesterol 11/14/17 01/15/22 doxazosin 4 mg tablet 2 mg PO QHS bladder 04/17/19 01/15/22 leflunomide 20 mg tablet (Arava) 20 mg PO DAILY 04/17/19 01/15/22 megestrol 20 mg tablet 10 mg PO DAILY 04/17/19 01/15/22 mirabegron 25 mg tablet,extended 25 mg PO DAILY 04/17/19 01/15/22 release 24 hr (Myrbetriq) etanercept 25 mg/0.5 mL (0.5 mL) 25 mg SQ QWEEK 07/09/19 01/15/22 subcutaneous syringe (Enbrel) bisoprolol fumarate 10 mg tablet 10 mg PO DAILY 01/12/20 01/15/22 chlorthalidone 25 mg tablet 25 mg PO DAILY 01/12/20 01/15/22 chlorthalidone 50 mg tablet 50 mg PO DAILY 01/12/20 01/15/22 Previous Rx's Medication Instructions Recorded oxybutynin chloride 5 mg tablet 5 mg PO HS #90 tabs 01/19/21 hydrocodone 5 mg-acetaminophen 325 1 tab PO Q6HP PRN Pain #20 tabs 08/12/21 mg tablet oxybutynin chloride 5 mg tablet 5 mg PO DAILY #90 tabs 02/21/22 prednisone 20 mg tablet 20 mg PO BID #10 tabs 07/02/22 Allergies Allergy/AdvReac Type Severity Reaction Status Date / Time No Known Allergies Allergy Verified 01/15/22 13:28 [facility] Disclaimer: The information contained in this section may have been updated after the patient was seen, as this information can be updated by other users. Medical History (Updated 07/02/22 @ 02:06 by Kye Linton MD) CAD (coronary artery disease) Carotid artery stenosis Dizziness Ex-smoker Family history of heart disease HLD (hyperlipidemia) HTN (hypertension) L
[2022-07-02 00:30] VITALS: BP 134/57; PULSE 73; RESP 16; O2SAT 94
[2022-07-02 01:00] VITALS: BP 134/59; PULSE 77; RESP 17; O2SAT 94
[2022-07-02 01:56] VITALS: BP 124/79; PULSE 70; RESP 16; TEMP 36.7; O2SAT 94
[2022-07-02 02:57] LABS: Erythrocyte Sedimentation Rate 85 mm/hr (0-20)
[2022-07-02 03:07] LABS: C-Reactive Protein 42.2 mg/L (0-4)
[2022-07-02 03:22] LABS: Procalcitonin 0.081 ng/mL (0.0-2.0); T4 (Thyroxine) 8.9 ug/dl (5.53-11.0)
[2022-07-02 03:35] LABS: Thyroid Stimulating Hormone 1.94 uIU/mL (0.465-4.68)
[2022-07-04 02:34] LABS: Peripheral Smear Review Scanned Result
== END 2022-07-02 02:14 | disposition home or self-care (01) ==
PROVIDERS: Emergency Provider Emergency Medicine; PCP Family Medicine
DX: R20.2 Paresthesia of skin (principal); E87.6 Hypokalemia; G62.9 Polyneuropathy, unspecified; M51.36 Other intervertebral disc degeneration, lumbar region; R53.1 Weakness; I25.10 Atherosclerotic heart disease of native coronary artery without angina pectoris; I65.29 Occlusion and stenosis of unspecified carotid artery; Z87.891 Personal history of nicotine dependence; Z82.49 Family history of ischemic heart disease and other diseases of the circulatory system; E78.5 Hyperlipidemia, unspecified; I10 Essential (primary) hypertension; G47.33 Obstructive sleep apnea (adult) (pediatric); Z85.46 Personal history of malignant neoplasm of prostate; Z20.822 Contact with and (suspected) exposure to COVID-19
CPT/HCPCS: 71045; 72131; 74177; 80053; 81001; 84145; 84436; 84443; 84484; 85007; 85025; 85651; 86140; 93005; 96361; 96374; 96375; 99285; C9803; Q9967; U0003; U0005

== ENCOUNTER → 2022-07-11 13:33 | Outpatient (CLI) | payer MEDICARE, SELFPAY ==
[2022-07-11 14:34] LABS: Hemoglobin A1C 5.8 % (4.0-6.0)
[2022-07-11 16:58] LABS: 25-OH Vitamin D, Total < 12.8 ng/mL (30-100)
[2022-07-18 14:17] LABS: Vitamin B6 4.8 ug/L (3.4-65.2)
== END ==
PROVIDERS: PCP Family Medicine; Visit Provider Nurse Practitioner
DX: E13.69 Other specified diabetes mellitus with other specified complication (principal); E55.9 Vitamin D deficiency, unspecified; R53.83 Other fatigue; G62.9 Polyneuropathy, unspecified
CPT/HCPCS: 36415; 82306; 83036; 84207

== ENCOUNTER → 2022-08-03 14:58 | Outpatient (CLI) | payer MEDICARE, SELFPAY ==
--- NOTE | 2022-08-03 15:03 | XR_ITS ---
FINAL REPORT CLINICAL HISTORY: DECREASED ROM - took off RA medicine Saturday - patient unable to straighten neck out -- best films possible FINDINGS: CERVICAL SPINE Six views demonstrate no acute fracture. There are mild degenerative changes. There is kyphosis centered at the cervical thoracic junction. There is no malalignment. IMPRESSION: Mild degenerative changes. Reviewed, Interpreted and Dictated by Cornell Le III, MD Transcribed by Makayla Browning Authenticated and . [facility]
== END ==
PROVIDERS: PCP Nurse Practitioner Family; Visit Provider Nurse Practitioner Family
DX: M54.2 Cervicalgia (principal); R29.898 Other symptoms and signs involving the musculoskeletal system
CPT/HCPCS: 72050

== ENCOUNTER → 2022-08-09 08:28 | Outpatient (CLI) | payer MEDICARE, SELFPAY ==
[2022-08-09 08:58] LABS: Basophils # 0.1 K/mm3 (0-0.2); Basophils % 2.1 % (0.1-2.0); Eosinophils # 0.3 K/mm3 (0.0-0.4); Eosinophils % 6.6 % (0.1-12.0); Hematocrit 40.4 % (42.0-52.0); Hemoglobin 13.1 g/dL (14.1-18.0); Lymphocytes # 2.4 K/mm3 (0.7-4.5); Lymphocytes % 52.5 % (10-50); Mean Corpuscular HGB Conc 32.5 g/dL (31.8-35.4); Mean Corpuscular Hemoglobin 29.5 pg (27.0-31.2); Mean Corpuscular Volume 90.9 fl (80-94); Mean Platelet Volume 7.8 fl (7.4-10.4); Monocytes # 0.4 K/mm3 (0.1-1.0); Monocytes % 7.5 % (1.7-9.3); Neutrophils # 1.4 K/mm3 (1.8-7.8); Neutrophils % 31.3 % (37.0-80.0); Platelet Count 289 K/mm3 (142-424); Red Blood Count 4.45 M/mm3 (4.60-6.20); Red Cell Distribution Width 14.7 % (11.5-17.5); White Blood Count 4.6 K/mm3 (4.8-10.8)
[2022-08-09 09:01] LABS: MANUAL DIFFERENTIAL MANUAL DIFFERENTIAL (MANUAL DIFF)
[2022-08-09 09:44] LABS: Eosinophils % 6 % (0-3); Lymphocytes % 54 % (10-50); Monocytes % 7 % (2-9); Neutrophils % 31 % (42-76); Platelet Estimate Normal; RBC Morphology Normal; Total Cells Counted 100
== END ==
PROVIDERS: PCP Nurse Practitioner Family; Visit Provider Internal Medicine Hematology & Oncology
DX: D70.9 Neutropenia, unspecified (principal)
CPT/HCPCS: 36415; 85007; 85025

== ENCOUNTER → 2022-08-31 08:34 | Outpatient (CLI) | payer MEDICARE, SELFPAY ==
[2022-08-31 10:11] LABS: Basophils # 0.1 K/mm3 (0-0.2); Basophils % 1.7 % (0.1-2.0); Eosinophils # 0.3 K/mm3 (0.0-0.4); Eosinophils % 5.7 % (0.1-12.0); Hematocrit 39.2 % (42.0-52.0); Hemoglobin 12.8 g/dL (14.1-18.0); Lymphocytes % 61.8 % (10-50); Mean Corpuscular HGB Conc 32.7 g/dL (31.8-35.4); Mean Corpuscular Hemoglobin 29.2 pg (27.0-31.2); Mean Corpuscular Volume 89.4 fl (80-94); Mean Platelet Volume 9.1 fl (7.4-10.4); Monocytes # 0.9 K/mm3 (0.1-1.0); Monocytes % 17.8 % (1.7-9.3); Neutrophils # 0.6 K/mm3 (1.8-7.8); Platelet Count 188 K/mm3 (142-424); Red Blood Count 4.38 M/mm3 (4.60-6.20); Red Cell Distribution Width 15.2 % (11.5-17.5); White Blood Count 4.9 K/mm3 (4.8-10.8)
[2022-08-31 10:12] LABS: Neutrophils % 13.1 % (37.0-80.0)
[2022-08-31 10:14] LABS: MANUAL DIFFERENTIAL MANUAL DIFFERENTIAL (MANUAL DIFF)
[2022-08-31 11:04] LABS: Lymphocytes % 66 % (10-50); Monocytes % 4 % (2-9); Neutrophils % 30 % (42-76); Platelet Estimate Normal; RBC Morphology Normal; Total Cells Counted 100
== END ==
PROVIDERS: PCP Nurse Practitioner Family; Visit Provider Internal Medicine Hematology & Oncology
DX: D70.9 Neutropenia, unspecified (principal)
CPT/HCPCS: 36415; 85007; 85025

== ENCOUNTER → 2022-09-24 14:06 | Outpatient (CLI) | payer MEDICARE, SELFPAY ==
--- NOTE | 2022-09-24 14:18 | XR_ITS ---
FINAL REPORT CLINICAL HISTORY: INJURY DUE TO FALL,RT LOWER EXT PAIN FINDINGS: AP and lateral views of the right tibia and fibula were obtained. There is no prior exam for comparison. There is no acute fracture of the right tibia or fibula. The knee and ankle appear intact. The soft tissues are normal. IMPRESSION: No acute osseous abnormality of the right tibia or fibula. Reviewed, Interpreted and Dictated by Bridgett Cameron MD Transcribed by Yelena Abernathy Authenticated and [facility]
--- NOTE | 2022-09-24 14:18 | XR_ITS ---
FINAL REPORT CLINICAL HISTORY: INJURY DUE TO FALL,RT LOWER EXT PAIN FINDINGS: AP, oblique, and lateral views of the right ankle were obtained. There is no prior exam for comparison. There is no fracture or dislocation. The ankle mortise is intact. There is degenerative joint disease. Mild soft tissue edema is noted. IMPRESSION: No acute osseous abnormality of the right ankle. Reviewed, Interpreted and Dictated by Bridgett Cameron MD Transcribed by Yelena Abernathy Authenticated and [facility]
--- NOTE | 2022-09-24 14:18 | XR_ITS ---
FINAL REPORT CLINICAL HISTORY: LT SHOULDER PAIN DUE TO FALL FINDINGS: Internal and external rotation views of the left shoulder were obtained. There is no prior exam for comparison. There is mild degenerative disease at the AC joint. There is no fracture or dislocation. Soft tissues are normal. IMPRESSION: No acute osseous abnormality of the left shoulder. Reviewed, Interpreted and Dictated by Bridgett Cameron MD Transcribed by Yelena Abernathy Authenticated and [facility]
== END ==
PROVIDERS: PCP Family Medicine; Visit Provider Nurse Practitioner Family
DX: M25.512 Pain in left shoulder (principal); M25.612 Stiffness of left shoulder, not elsewhere classified; M79.604 Pain in right leg; W19.XXXA Unspecified fall, initial encounter
CPT/HCPCS: 73030; 73590; 73610

== ENCOUNTER → 2022-10-03 07:11 | Outpatient (CLI) | payer MEDICARE, SELFPAY ==
--- NOTE | 2022-10-03 07:18 | CT_ITS ---
FINAL REPORT TECHNIQUE: multiple axial CT images were performed from the foramen magnum to the vertex without enhancement. CLINICAL HISTORY: LOSS OF BALANCE,DIZZINESS FINDINGS: There is moderate atrophy. There is proportional ventriculomegaly. There is abnormal decreased attenuation in the deep white matter. There is periventricular white matter change likely related to small vessel disease. There is no evidence of hemorrhage. No masses are identified. No extra-axial fluid is seen. The sinuses are normal. IMPRESSION: Moderate atrophy and changes of chronic ischemia without acute process. Reviewed, Interpreted and Dictated by Ulises Bush MD Transcribed by Kori Shankar Authenticated and [facility]
== END ==
PROVIDERS: PCP Family Medicine; Visit Provider Nurse Practitioner Family
DX: R42 Dizziness and giddiness (principal); R26.89 Other abnormalities of gait and mobility
CPT/HCPCS: 70450

== ENCOUNTER → 2022-12-12 13:19 | Outpatient (CLI) | payer MEDICARE, SELFPAY ==
[2022-12-12 14:17] LABS: Basophils % 0.6 % (0.1-2.0); Eosinophils # 0.4 K/mm3 (0.0-0.4); Eosinophils % 5.4 % (0.1-12.0); Hematocrit 38.5 % (42.0-52.0); Hemoglobin 12.5 g/dL (14.1-18.0); Lymphocytes # 3.7 K/mm3 (0.7-4.5); Lymphocytes % 57.4 % (10-50); Mean Corpuscular HGB Conc 32.5 g/dL (31.8-35.4); Mean Corpuscular Hemoglobin 26.9 pg (27.0-31.2); Mean Corpuscular Volume 82.9 fl (80-94); Mean Platelet Volume 8.2 fl (7.4-10.4); Monocytes # 0.7 K/mm3 (0.1-1.0); Monocytes % 10.3 % (1.7-9.3); Neutrophils # 1.7 K/mm3 (1.8-7.8); Neutrophils % 26.2 % (37.0-80.0); Platelet Count 195 K/mm3 (142-424); Red Blood Count 4.64 M/mm3 (4.60-6.20); Red Cell Distribution Width 15.6 % (11.5-17.5); White Blood Count 6.5 K/mm3 (4.8-10.8)
[2022-12-12 14:31] LABS: MANUAL DIFFERENTIAL MANUAL DIFFERENTIAL (MANUAL DIFF)
[2022-12-12 14:56] LABS: Erythrocyte Sedimentation Rate 63 mm/hr (0-20)
[2022-12-12 15:11] LABS: C-Reactive Protein 20.5 mg/L (0-4)
[2022-12-12 15:35] LABS: Eosinophils % 1 % (0-3); Hypochromasia 1+; Lymphocytes % 57 % (10-50); Monocytes % 7 % (2-9); Neutrophils % 35 % (42-76); Total Cells Counted 100
[2022-12-12 15:36] LABS: Platelet Estimate Normal
[2022-12-12 15:55] LABS: Vitamin B12 558 pg/mL (239-931)
== END ==
PROVIDERS: PCP Family Medicine; Visit Provider Internal Medicine Hematology & Oncology
DX: D70.9 Neutropenia, unspecified (principal)
CPT/HCPCS: 36415; 82607; 85007; 85025; 85651; 86140

== ENCOUNTER → 2023-03-05 13:22 | Outpatient (POV) | payer MEDICARE, SELFPAY | PROVIDERS: Visit Provider Dermatology | DX: Z00.00 Encounter for general adult medical examination without abnormal findings (principal) ==

== ENCOUNTER → 2023-03-07 12:50 | Outpatient (CLI) | payer MEDICARE, SELFPAY ==
--- NOTE | 2023-03-07 12:59 | US_ITS ---
FINAL REPORT CLINICAL HISTORY: NEUTROPENIA COMPARISON: None FINDINGS: LIMITED ULTRASOUND LEFT UPPER QUADRANT: The spleen is unremarkable in appearance without evidence of focal mass or enlargement. It measures 9.8 cm in length. The left kidney is also unremarkable in appearance, measuring 10.2 cm in length. No evidence of hydronephrosis or mass is seen. IMPRESSION: Unremarkable spleen and left kidney. Reviewed, Interpreted and Dictated by Cornell Le III, MD Transcribed by Amanda Gil Authenticated and [facility]
== END ==
PROVIDERS: PCP Family Medicine; Visit Provider Internal Medicine Hematology & Oncology
DX: D70.9 Neutropenia, unspecified (principal)
CPT/HCPCS: 76705

== ENCOUNTER → 2023-04-24 12:48 | Outpatient (CLI) | payer MEDICARE, SELFPAY ==
--- NOTE | 2023-04-24 12:53 | CA_ITS ---
FINAL REPORT TECHNIQUE: Color Doppler, duplex Doppler and dutton scale sonography of the bilateral neck arterial vasculature was performed. Velocities were measured in the carotid arteries. Stenosis evaluation based on the validated velocity criteria. CLINICAL HISTORY: Carotid arterial disease, Hx- Right Caroitd endartectomy FINDINGS: The peak systolic velocity of the right common carotid artery is 129 cm/s. The peak systolic velocity of the right internal carotid artery is 93 cm/s and end diastolic velocity 21 cm/s. The ICA/CCA ratio is 1.1. A moderate amount of plaque is present. The right external carotid artery is patent. The right vertebral artery is patent with antegrade flow. The peak systolic velocity of the left common carotid artery is 86 cm/s. The peak systolic velocity of the left internal carotid artery is 200 cm/s and end diastolic velocity 36 cm/s. The ICA/CCA ratio is 2.4. A moderate amount of plaque is present. The left external carotid artery is patent.The left vertebral artery is patent with antegrade flow. IMPRESSION: Less than 50% right carotid stenosis. 50-69% left carotid stenosis. Bilateral patent vertebral arteries with antegrade flow. If indicated, CTA or MRA could further evaluate. Reviewed, Interpreted and Dictated by Cornell Le III, MD Transcribed by Makayla Browning Authenticated and . [facility]
== END ==
PROVIDERS: PCP Nurse Practitioner Family; Visit Provider Nurse Practitioner Family
DX: I65.23 Occlusion and stenosis of bilateral carotid arteries (principal); Z98.890 Other specified postprocedural states
CPT/HCPCS: 93880

== ENCOUNTER → 2023-05-14 16:19 | Outpatient (CLI) | payer MEDICARE, SELFPAY ==
[2023-05-16 20:59] LABS: Occult Blood,Stool Positive (Negative)
== END ==
PROVIDERS: PCP Nurse Practitioner Family; Visit Provider Internal Medicine Hematology & Oncology
DX: R19.5 Other fecal abnormalities (principal)
CPT/HCPCS: 82272; G0328

== ENCOUNTER → 2023-05-15 14:45 | Outpatient (CLI) | payer MEDICARE, SELFPAY ==
--- NOTE | 2023-05-15 14:46 | CA_ITS ---
APPROVED REPORT EXAM: Comprehensive 2D, Doppler, and color-flow Echocardiogram Teletype Telegrapher: Consuelo Tipton RVT Ht: 6 ft 1 in Wt: 180lbs BSA: 2.06 BP: 130/68 mmHg Indications: DYSPENA,ERIC,CAD,HTN,CABG,,EX SMOKER,HLD 2D Dimensions LVOT 2.04 cm (M/F) 1.5-2.5 LA Volume 106.70 mL LA Volume Index 51.80 mL/m2 (M/F) 16-34 M-Mode Dimensions RVDd 3.22 cm (0.9-2.6) LA Diam 5.05 cm (1.9-4.0) LVDd 4.31 cm (3.5-5.7) Ao Diam 3.40 cm (2.0-3.7) LVDs 2.94 cm (3.5-5.7) IVSd 0.89 cm (0.6-1.1) PWd 0.85 cm (0.6-1.1) EF (Teich) 60.10% FS 31.80% EDV (Teich) 83.50 mL TAPSE 2.82 (<1.7) ESV (Teich) 33.30 mL LV Diastology E Decel Time 120.00 (160-240 msec) E/A Ratio 3.5 MED E' 5.20 (< 7 cm/sec) E'/MED E' Ratio 18.67 (>14) LAT E' 5.20 (<10 cm/sec) E/LAT E' Ratio 18.67 (>14) Aortic Valve LVOT Max 118.00 (70-110 cm/s) LVOT VTI 27.82 cm AoV Peak Santi. 177.00 (50-130 cm/s) AO Peak GR. 12.60 mmHg AO Mean GR. 5.90 (<5 mmHg) AO VTI 39.55 (18-25 cm) SUSANA (VTI) 2.30 (2.5-4.5 cm2) Mitral Valve MV E Max Santi. 97.00 (40-130 cm/s) MV A Velocity 28.00 (40-130 cm/s) E/A Ratio 3.52 MV Decel. Time 120.00 (160-240 ms) MV PHT 35.00 ms Pulmonary Valve PV Peak Velocity 72.00 (50-150 cm/s) Tricuspid Valve TR P. Velocity 388.00 cm/s RAP Estimate 10.00 mmHg RVSP 70.10 mmHg Left Ventricle The left ventricle is normal size. The left ventricular systolic function is normal. The left ventricular ejection fraction is within the normal range. There is increased LV wall thickness. Proximal septal thickening is noted. There is normal LV segmental wall motion. Grade 3 diastolic dysfunction is present. LVEF is 55%. Right Ventricle The right ventricle is mildly dilated. The right ventricular systolic function is normal. Atria The left atrium is moderately dilated. The right atrium is moderately dilated. The interatrial septum is not well-visualized. Aortic Valve The aortic valve is mildly thickened. There is no aortic valvular stenosis. Mild aortic regurgitation. Mitral Valve Mild mitral annular calcification. The mitral valve leaflets are mildly thickened. No evidence of mitral valve stenosis. Mild mitral regurgitation. Tricuspid Valve The tricuspid valve leaflets are thin and pliable. Mild to moderate tricuspid regurgitation. RVSP is 45 mmHg + RA pressure. Pulmonic Valve The pulmonary valve is normal in structure. Mild pulmonic regurgitation. Great Vessels The aortic root is normal in size. The ascending aorta is normal in size. The IVC is not well-visualized. Pericardium There is no pericardial effusion. Other Information Study Quality: Technically Difficult Conclusion This is a technically difficult study due to poor acoustic windows. Normal biventricular systolic function. Mild RV dilation. Moderate biatrial dilation. Mild MR, mild AI. Mild to moderate TR. Elevated RVSP (45 mmHg + RA pressure). Electronically signed by : Kandi Hahn MD 05/26/2023 20:22:44
== END ==
LOC: RT 14:46
PROVIDERS: PCP Nurse Practitioner Family; Visit Provider Internal Medicine
DX: C61 Malignant neoplasm of prostate (principal); E78.5 Hyperlipidemia, unspecified; I10 Essential (primary) hypertension; I25.810 Atherosclerosis of coronary artery bypass graft(s) without angina pectoris; I65.29 Occlusion and stenosis of unspecified carotid artery; R42 Dizziness and giddiness; Z87.891 Personal history of nicotine dependence; Z95.1 Presence of aortocoronary bypass graft; Z98.890 Other specified postprocedural states
CPT/HCPCS: 93306

== ENCOUNTER → 2023-05-15 16:20 | Outpatient (CLI) | payer MEDICARE, SELFPAY ==
[2023-05-16 21:00] LABS: Occult Blood,Stool Positive (Negative)
== END ==
PROVIDERS: PCP Nurse Practitioner Family; Visit Provider Internal Medicine Hematology & Oncology
DX: D64.9 Anemia, unspecified (principal); I25.810 Atherosclerosis of coronary artery bypass graft(s) without angina pectoris; R42 Dizziness and giddiness; R19.5 Other fecal abnormalities
CPT/HCPCS: 82272; 93306; G0328

== ENCOUNTER → 2023-05-16 16:11 | Outpatient (CLI) | payer MEDICARE, SELFPAY ==
[2023-05-16 16:48] LABS: Basophils % 0.8 % (0.1-2.0); Eosinophils % 0.4 % (0.1-12.0); Hematocrit 35.2 % (42.0-52.0); Hemoglobin 11.9 g/dL (14.1-18.0); Lymphocytes # 1.9 K/mm3 (0.7-4.5); Lymphocytes % 40.3 % (10-50); Mean Corpuscular HGB Conc 33.9 g/dL (31.8-35.4); Mean Corpuscular Hemoglobin 26.8 pg (27.0-31.2); Mean Corpuscular Volume 79.2 fl (80-94); Mean Platelet Volume 8.2 fl (7.4-10.4); Monocytes # 0.7 K/mm3 (0.1-1.0); Monocytes % 14.8 % (1.7-9.3); Neutrophils # 2.1 K/mm3 (1.8-7.8); Neutrophils % 43.7 % (37.0-80.0); Platelet Count 235 K/mm3 (142-424); Red Blood Count 4.44 M/mm3 (4.60-6.20); White Blood Count 4.7 K/mm3 (4.8-10.8)
[2023-05-16 18:14] LABS: Iron 175 ug/dL (49-181)
[2023-05-16 18:24] LABS: Total Iron Binding Capacity 333 ug/dL (261-462)
[2023-05-16 21:00] LABS: Occult Blood,Stool Positive (Negative)
== END ==
PROVIDERS: PCP Nurse Practitioner Family; Visit Provider Internal Medicine Hematology & Oncology
DX: D70.8 Other neutropenia (principal); K92.1 Melena
CPT/HCPCS: 36415; 82272; 82728; 83540; 83550; 85025; G0328

== ENCOUNTER 2023-06-21 11:58 | Observation (INO) | payer MEDICARE, SELFPAY ==
[2023-06-21] VITALS (8 sets, daily range): BP systolic 90–150; BP diastolic 36–70; PULSE 45–65; RESP 18–20; TEMP 36.6–36.9; O2SAT 95–99; BMI 23.7; BMI 23.6
--- NOTE | 2023-06-21 12:04 | ECG_ITS ---
APPROVED REPORT Exam: Resting ECG HR:44 bpm ECG Measurements Heart Rate 44 AXES VA 155 P 10 QRSd 89 QRS 49 QT 504 T 18 QTc 454 Conclusion SINUS BRADYCARDIA BORDERLINE ECG UNCONFIRMED REPORT Electronically signed by : Pancho Desai MD 06/21/2023 17:58:52
--- NOTE | 2023-06-21 12:17 | PC.NURSE ---
Dr. Child at BS for pt eval
--- NOTE | 2023-06-21 12:32 | HMH.EDGENADL ---
Discharge Plan Disposition Patient Disposition: Admitted Prescriptions Prescriptions: No Action bicalutamide 50 mg tablet 50 mg PO DAILY prednisone 5 mg tablet PO ferrous sulfate [FeroSul] 325 mg (65 mg iron) tablet 325 mg PO DAILY aspirin 81 mg tablet,delayed release (DR/EC) 81 mg PO DAILY oxybutynin chloride 10 mg tablet extended release 24hr PO cyanocobalamin (vitamin B-12) 1,000 mcg tablet 1,000 mcg PO DAILY Eligard (6 month) 45 mg syringe 45 mg SQ [id number] pregabalin 100 mg capsule 100 mg PO BID meloxicam 7.5 mg tablet 7.5 mg PO DAILY 90 Days Qty: 90 1RF Xarelto 2.5 mg tablet 2.5 mg PO BID Qty: 60 5RF bisoprolol fumarate 5 mg tablet 5 mg PO DAILY Qty: 30 2RF furosemide [Lasix] 20 mg tablet 20 mg PO DAILY Qty: 30 5RF levofloxacin 500 mg tablet 500 mg PO DAILY Qty: 30 0RF Referrals Follow up/Referrals: Josee Preciado APRN [Primary Care Provider] - See instructions Clinical Impressions Clinical Impression: Near syncope, Melena, Bradycardia, sinus Discharge ED Provider: La Child General Adult HPI General Chief complaint: Weakness Stated complaint: dizziness Time Seen by Provider: 06/21/23 12:12 Mode of Arrival: EMS Source of Information: Patient Limitations: No Limitations Description of Symptoms (Recalled from ER Triage Doc. by RN): pt to ed c/o generalized weakness, dark stools. per ems, pt's states he recently had a positive stool occult. History of Present Illness HPI narrative: Patient is an 82-year-old male with a history of prostate cancer in remission presents today with near syncopal episodes and dark tarry stool. States that he had a dark bowel movement a week ago has been followed by his oncologist who did some outpatient diagnostic testing and told him he had blood in his stool and was supposed to be being followed up by a pipeline systems operator but this has not yet happened. He had a colonoscopy within the last several years which was unremarkable but never had an endoscopy. Related Data Home Medications Medication Instructions Recorded Confirmed aspirin 81 mg tablet,delayed 81 mg PO DAILY Heart disease 11/14/17 06/03/23 release cyanocobalamin (vitamin B-12) 1,000 mcg PO DAILY 04/15/23 06/03/23 1,000 mcg tablet leuprolide acetate (6 month) 45 mg 45 mg SQ [id number] 04/15/23 06/03/23 (6 month) subcutaneous syringe (Elidivined) oxybutynin chloride 10 mg mg PO 04/15/23 06/03/23 tablet,extended release 24 hr pregabalin 100 mg capsule 100 mg PO BID 04/15/23 06/03/23 bicalutamide 50 mg tablet 50 mg PO DAILY 05/02/23 06/03/23 ferrous sulfate 325 mg (65 mg 325 mg PO DAILY 06/03/23 06/03/23 iron) tablet (FeroSul) prednisone 5 mg tablet mg PO 06/03/23 06/03/23 Previous Rx's Medication Instructions Recorded meloxicam 7.5 mg tablet 7.5 mg PO DAILY 90 days #90 tabs 04/15/23 bisoprolol fumarate 5 mg tablet 5 mg PO DAILY #30 tabs 05/02/23 furosemide 20 mg tablet (Lasix) 20 mg PO DAILY #30 tabs 05/02/23 levofloxacin 500 mg tablet 500 mg PO DAILY #30 tabs 05/02/23 rivaroxaban 2.5 mg tablet (Xarelto) 2.5 mg PO BID #60 tabs 05/02/23 Allergies Allergy/AdvReac Type Severity Reaction Status Date / Time No Known Allergies Allergy Verified 06/03/23 10:31 [facility] Disclaimer: The information contained in this section may have been updated after the patient was seen, as this information can be updated by other users. Medical History CAD (coronary artery disease) Carotid artery stenosis Dizziness Ex-smoker Family history of heart disease HLD (hyperlipidemia) HTN (hypertension) Left carotid bruit ERIC (obstructive sleep apnea) Paresthesias Prostate cancer Surgical History History of right-sided carotid endarterectomy Hx of CABG Social History (Reviewed 06/03/23 @ 10:30 by Lien
[2023-06-21 12:34] LABS: Basophils % 0.9 % (0.1-2.0); Chloride 108 mmol/L (98-107); Eosinophils # 0.3 K/mm3 (0.0-0.4); Eosinophils % 5.7 % (0.1-12.0); Hematocrit 35.7 % (42.0-52.0); Hemoglobin 11.7 g/dL (14.1-18.0); Lymphocytes % 41.3 % (10-50); Mean Corpuscular HGB Conc 32.6 g/dL (31.8-35.4); Mean Corpuscular Hemoglobin 27.8 pg (27.0-31.2); Mean Corpuscular Volume 85.2 fl (80-94); Mean Platelet Volume 8.6 fl (7.4-10.4); Monocytes # 0.5 K/mm3 (0.1-1.0); Monocytes % 10.4 % (1.7-9.3); Neutrophils % 41.7 % (37.0-80.0); Platelet Count 186 K/mm3 (142-424); Red Blood Count 4.19 M/mm3 (4.60-6.20); Red Cell Distribution Width 19.2 % (11.5-17.5); White Blood Count 4.8 K/mm3 (4.8-10.8)
[2023-06-21 12:35] LABS: Potassium 4.5 mmoL/L (3.5-5.1); Sodium 141 mmol/L (136-145)
[2023-06-21 12:37] LABS: Alanine Aminotransferase 16 U/L (12-78); Alkaline Phosphatase 60 U/L (38-126); Anion Gap 9.5 mEq/L (5-15); Aspartate Amino Transferase 33 U/L (17-59); Bilirubin,Total 0.4 mg/dl (0.2-1.3); Blood Urea Nitrogen 29 mg/dl (9-20); Carbon Dioxide 28 mmol/L (22.0-30.0); Creatinine Clearance Estimated 56 mL/min (50-200); Estimated Glomerular Filt Rate 58 ml/min (>60); GFR (African American) 70 ML/MIN (>60)
[2023-06-21 12:38] LABS: Albumin Level 3.5 g/dl (3.5-5.0); Albumin/Globulin Ratio 1.3 (1.1-1.8); Calcium 8.6 mg/dl (8.4-10.2); Globulin 2.7 g/dL (1.3-3.2); Glucose 169 mg/dl (74-100); Magnesium 2.1 mg/dl (1.6-2.3); Phosphorous 4.1 mg/dl (2.5-4.5); Total Protein,Serum 6.2 g/dl (6.3-8.2)
[2023-06-21 12:47] LABS: NT Pro Brain Natriuretic Pep. 768 pg/mL (0-450)
[2023-06-21 12:50] LABS: Troponin I < 0.01 ng/ml (0.00-0.034)
[2023-06-21 13:09] LABS: Thyroid Stimulating Hormone 4.43 uIU/mL (0.465-4.68)
--- NOTE | 2023-06-21 13:22 | PC.NURSE ---
called lab to come draw lactic acid and type and screen on patient
[2023-06-21 14:09] LABS: Lactic Acid 1.9 mmol/L (0.7-2.1)
--- NOTE | 2023-06-21 14:39 | PC.NURSE ---
paged general surgery for ER
--- NOTE | 2023-06-21 14:51 | PC.NURSE ---
Dr. Child s/w Dr. Dee
--- NOTE | 2023-06-21 15:04 | PC.NURSE ---
Dr. Child at BS to update pt/visitor on results and POC
--- NOTE | 2023-06-21 15:44 | HMH.PHAINT1 ---
Pharmacy Intervention Comments: MEDICATION RECONCILIATION COMPLETE USING LIST FROM MOST RECENT MD OFFICE VISIT AND EXTERNAL PHARMACY FILL HISTORY.
--- NOTE | 2023-06-21 16:09 | PC.NURSE ---
Called report to Kristine LONG an answered all questions
[2023-06-21 16:12] LABS: Troponin I < 0.01 ng/ml (0.00-0.034)
--- NOTE | 2023-06-21 17:43 | EXP.HP ---
History of Present Illness *Admission Date: 06/21/23 *Reason for visit:: Melena *History of present illness: Patient is a 82-year-old male with past medical history of PAD, CAD neuropathy, hypertension hyperlipidemia CAD who presented to hospital for dark tarry stools and having episode of dizziness, near syncope. Otherwise patient denies nausea vomiting abdominal pain chest pain shortness of breath fevers chills. 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 Patient had colonoscopy 2 years ago visit was found unremarkable for acute pathology. [facility] Disclaimer: The information contained in this section may have been updated after the patient was seen, as this information can be updated by other users. Medical History CAD (coronary artery disease) Carotid artery stenosis Dizziness Ex-smoker Family history of heart disease HLD (hyperlipidemia) HTN (hypertension) Left carotid bruit ERIC (obstructive sleep apnea) Paresthesias Prostate cancer Surgical History History of right-sided carotid endarterectomy Hx of CABG Family History (Updated 06/21/23 @ 16:19 by Aida Fisher, RN) Other No significant family history Social History (Updated 06/21/23 @ 16:19 by Aida Fisher, RN) Smoking Status: Never smoker alcohol intake: current substance use type: denies use current occupational status: employed and retired Travel in the last 8 weeks: None household members: spouse housing: house caffeine: No Review of Systems Review of Systems Review of systems (narrative): as per [facility] Meds Home Medications and Allergies Home Medications Medication Instructions Recorded Confirmed Type aspirin 81 mg tablet,delayed 81 mg PO DAILY Heart disease 11/14/17 06/21/23 History release cyanocobalamin (vitamin B-12) 1,000 mcg PO DAILY Supplement 04/15/23 06/21/23 History 1,000 mcg tablet leuprolide acetate (6 month) 45 mg 45 mg SQ .[id number] CHEMOTHERAPY 04/15/23 06/21/23 History (6 month) subcutaneous syringe (MaribelArria NLGsharron) oxybutynin chloride 10 mg 10 mg PO DAILY URINARY SYMPTOMS 04/15/23 06/21/23 History tablet,extended release 24 hr pregabalin 100 mg capsule 100 mg PO BID Pain 04/15/23 06/21/23 History bicalutamide 50 mg tablet 50 mg PO DAILY CHEMOTHERAPY 05/02/23 06/21/23 History ferrous sulfate 325 mg (65 mg 325 mg PO DAILY Supplement 06/03/23 06/21/23 History iron) tablet (FeroSul) prednisone 5 mg tablet 5 mg PO DAILY INFLAMMATION 06/03/23 06/21/23 History bisoprolol fumarate 5 mg tablet 5 mg PO DAILY High Blood Pressure 06/21/23 06/21/23 History furosemide 20 mg tablet (Lasix) 20 mg PO DAILY Fluid 06/21/23 06/21/23 History meloxicam 7.5 mg tablet 7.5 mg PO DAILY Pain 06/21/23 06/21/23 History rivaroxaban 2.5 mg tablet (Xarelto) 2.5 mg PO BID Blood Thinner 06/21/23 06/21/23 History New Prescriptions to Start Prescriptions: Allergies Allergy/AdvReac Type Severity Reaction Status Date / Time No Known Allergies Allergy Verified 06/21/23 16:26 Exam Data for Last 24 hours Vital signs and Labs for Last 24 Hours: Temp Pulse Resp BP Pulse Ox O2 Del Method 97.9 F 65 20 90/45 L 97 Room Air 06/21/23 16:22 06/21/23 16:22 06/21/23 16:22 06/21/23 16:22 06/21/23 16:00 06/21/23 16:22 Laboratory Results - last 24 hr 06/21/23 12:18: WBC 4.8, RBC 4.19 L, Hgb 11.7 L, Hct 35.7 L, MCV 85.2, MCH 27.8, MCHC 32.6, RDW 19.2 H, Plt Count 186, MPV 8.6, Neut % (Auto) 41.7, Lymph % (Auto) 41.3, [place] % (Auto) 10.4 H, Eos % (Auto) 5.7, Baso % (Auto) 0.9, Neut # (Auto) 2.0, Lymph # (Auto) 2.0, [place] # (Auto) 0.5, Eos # (Auto) 0.3, Baso # (Auto) 0.0, Sodium 141, Potassium 4.5, Chloride 108 H, Carbon Dioxide 28, Anion Gap 9.5, BUN 29 H, Creatinine 1.20, Estimated Creat Clear 56, Estimated GFR 58 L, Est GFR ( Amer) 70, Glucose 169 H, Calcium 8.6, Phosphorus 4.1, Magnesium 2.1, Total Biliru
[2023-06-21 19:05] LABS: Troponin I < 0.01 ng/ml (0.00-0.034)
[2023-06-22] VITALS (10 sets, daily range): BP systolic 100–150; BP diastolic 49–77; PULSE 49–63; RESP 16–18; TEMP 36.4–37.2; O2SAT 96–100; BMI 23.6
--- NOTE | 2023-06-22 05:25 | PC.NURSE ---
patient rested well this shift. One episode of tatty stools noted. Patient remains on RA with o2 sats greater than 90% Call pabon and personal items in reach.
[2023-06-22 07:34] LABS: Chloride 109 mmol/L (98-107)
[2023-06-22 07:35] LABS: Sodium 142 mmol/L (136-145)
[2023-06-22 07:37] LABS: Blood Urea Nitrogen 24 mg/dl (9-20); Creatinine Clearance Estimated 67 mL/min (50-200); Estimated Glomerular Filt Rate 81 ml/min (>60); GFR (African American) 98 ML/MIN (>60)
[2023-06-22 07:38] LABS: Calcium 8.9 mg/dl (8.4-10.2); Carbon Dioxide 25 mmol/L (22.0-30.0); Glucose 100 mg/dl (74-100)
[2023-06-22 07:41] LABS: Basophils % 0.7 % (0.1-2.0); Eosinophils # 0.1 K/mm3 (0.0-0.4); Eosinophils % 2.1 % (0.1-12.0); Hematocrit 36.4 % (42.0-52.0); Hemoglobin 12.2 g/dL (14.1-18.0); Lymphocytes # 2.3 K/mm3 (0.7-4.5); Lymphocytes % 43.4 % (10-50); Mean Corpuscular HGB Conc 33.4 g/dL (31.8-35.4); Mean Corpuscular Hemoglobin 27.8 pg (27.0-31.2); Mean Corpuscular Volume 83.1 fl (80-94); Mean Platelet Volume 8.3 fl (7.4-10.4); Monocytes # 0.5 K/mm3 (0.1-1.0); Monocytes % 9.3 % (1.7-9.3); Neutrophils # 2.4 K/mm3 (1.8-7.8); Neutrophils % 44.4 % (37.0-80.0); Platelet Count 184 K/mm3 (142-424); Red Blood Count 4.39 M/mm3 (4.60-6.20); White Blood Count 5.4 K/mm3 (4.8-10.8)
--- NOTE | 2023-06-22 08:39 | EXP.SURG.CON ---
History of Present Illness *Admission Date: 06/21/23 *Reason for visit:: Melena *History of present illness: This is an 82-year-old gentleman who presented emergency department with near syncopal episode and melena. Surgical service was consulted for esophagogastroduodenoscopy. Note that the patient is status post colonoscopy in September [address] Calvin Jasso with findings of diminutive descending colon polyp, left-sided diverticulosis, and grade 1 internal hemorrhoids. Recommendations for no further preventative/screening colonoscopies were made. A similar complaint of melena last week was discussed with the patient's oncologist. Subsequently, the patient reports that is scheduled to see Dr. Jasso in [facility] next week for further evaluation and management. Please see HPI forwarded from emergency department evaluation below. Forwarded from Emergency Department evaluation: Patient is an 82-year-old male with a history of prostate cancer in remission presents today with near syncopal episodes and dark tarry stool. States that he had a dark bowel movement a week ago has been followed by his oncologist who did some outpatient diagnostic testing and told him he had blood in his stool and was supposed to be being followed up by a outpatient physical therapist assistant but this has not yet happened. He had a colonoscopy within the last several years which was unremarkable but never had an endoscopy. [facility] Disclaimer: The information contained in this section may have been updated after the patient was seen, as this information can be updated by other users. Medical History CAD (coronary artery disease) Carotid artery stenosis Dizziness Ex-smoker Family history of heart disease HLD (hyperlipidemia) HTN (hypertension) Left carotid bruit ERIC (obstructive sleep apnea) Paresthesias Prostate cancer Surgical History History of right-sided carotid endarterectomy Hx of CABG Family History (Updated 06/21/23 @ 16:19 by Aida Fisher RN) No significant family history Social History (Updated 06/21/23 @ 16:19 by Aida Fisher, MERCEDES) Smoking Status: Never smoker alcohol intake: current substance use type: denies use current occupational status: employed and retired Travel in the last 8 weeks: None household members: spouse housing: house caffeine: No Meds Home Medications and Allergies Home Medications Medication Instructions Recorded Confirmed Type aspirin 81 mg tablet,delayed 81 mg PO DAILY Heart disease 11/14/17 06/21/23 History release cyanocobalamin (vitamin B-12) 1,000 mcg PO DAILY Supplement 04/15/23 06/21/23 History 1,000 mcg tablet leuprolide acetate (6 month) 45 mg 45 mg SQ [id number] CHEMOTHERAPY 04/15/23 06/21/23 History (6 month) subcutaneous syringe (Leon) oxybutynin chloride 10 mg 10 mg PO DAILY URINARY SYMPTOMS 04/15/23 06/21/23 History tablet,extended release 24 hr pregabalin 100 mg capsule 100 mg PO BID Pain 04/15/23 06/21/23 History bicalutamide 50 mg tablet 50 mg PO DAILY CHEMOTHERAPY 05/02/23 06/21/23 History ferrous sulfate 325 mg (65 mg 325 mg PO DAILY Supplement 06/03/23 06/21/23 History iron) tablet (FeroSul) prednisone 5 mg tablet 5 mg PO DAILY INFLAMMATION 06/03/23 06/21/23 History bisoprolol fumarate 5 mg tablet 5 mg PO DAILY High Blood Pressure 06/21/23 06/21/23 History furosemide 20 mg tablet (Lasix) 20 mg PO DAILY Fluid 06/21/23 06/21/23 History meloxicam 7.5 mg tablet 7.5 mg PO DAILY Pain 06/21/23 06/21/23 History rivaroxaban 2.5 mg tablet (Xarelto) 2.5 mg PO BID Blood Thinner 06/21/23 06/21/23 History New Prescriptions to Start Prescriptions: Allergies Allergy/AdvReac Type Severity Reaction Status Date / Time No Known Allergies Allergy Verified 06/21/23 16:26 Exam (Inpt) Vital signs and Labs for Last 24 Hours: Temp Pulse Resp BP Pulse O
--- NOTE | 2023-06-22 08:58 | P.PNANES_ITS ---
[facility] Disclaimer: The information contained in this section may have been updated after the patient was seen, as this information can be updated by other users. Medical History CAD (coronary artery disease) Carotid artery stenosis Dizziness Ex-smoker Family history of heart disease HLD (hyperlipidemia) HTN (hypertension) Left carotid bruit ERIC (obstructive sleep apnea) Paresthesias Prostate cancer Surgical History History of right-sided carotid endarterectomy Hx of CABG Family History (Updated 06/21/23 @ 16:19 by Aida Fisher, MERCEDES) Other No significant family history Social History (Updated 06/21/23 @ 16:19 by Aida Fisher, MERCEDES) Smoking Status: Never smoker alcohol intake: current substance use type: denies use current occupational status: employed and retired Travel in the last 8 weeks: None household members: spouse housing: house caffeine: No [facility] Anesthesia Checklist Patient Identification Patient Identification: Arm Band Structural Data Admitted From: Inpatient Planned Operative Procedure/s: EGD Consent for Planned Operative Procedure(s) Verified: Yes Verified Documents: Surgical Consent and History and Physical NPO Status Verified Time NPO: 00:00 Additional verifications Anesthesia Reactions: No Hx Blood Transfusions: No Blood Transfusion Reaction: No Airway Assessment Mallampati Score:: Class II C-Spine Mobility Assessed: Yes TMJ Mobility Assessed: Yes Dentition: Edentulous Neurological Assessment Level of Consciousness: Awake and Alert Anesthesia Plan Anesthesia Risk discussed: Yes Anesthesia Plan: Verified ASA Class: III Anesthesia Type: MAC
--- NOTE | 2023-06-22 09:18 | HMH.SCOPE ---
Procedure: Date: 06/22/23 Patient Date of :: 1940 Procedure Performed:: Esophagogastroduodenoscopy with biopsy and clip placement Indications:: Melena Performing Provider:: Darrell Dee MD Referring Provider:: . Sedation:: Monitored anesthesia care Procedure:: After informed consent was obtained the patient was taken to the endoscopy suite. Sedation ensued after the patient was transferred to the left lateral decubitus position. Pulse, blood pressure, and oxygen saturation were monitored throughout the procedure. The endoscope was advanced beyond the duodenal bulb. Retroflexion within the gastric lumen was accomplished. The gastroscope was carefully removed and the patient was transferred to recovery in stable condition. Please see findings and specimens below for detail. Findings:: No evidence of active hemorrhage Small shallow ulcer in proximal/mid gastric body (tiny central clot noted) Biopsy of ulcer margin Resolution 360 Hemoclip placed at ulcer site after biopsy completed Specimens:: Proximal/mid gastric body ulcer margin Recommendations:: Proton pump inhibition Maintain ongoing outpatient follow-up as scheduled next week with Dr. Calvin Jasso in [facility] Complications:: No immediate Estimated blood obtained (mL): 1 Colonoscopy Component Colonoscopy Component Was a colonoscopy performed during today's procedure?: No
--- NOTE | 2023-06-22 11:33 | EXP.DC.SUM ---
General Admission date:: 06/21/23 Discharge date: 06/22/23 HPI HPI HPI: This is an 82-year-old gentleman who presented emergency department with near syncopal episode and melena. Surgical service was consulted for esophagogastroduodenoscopy. Note that the patient is status post colonoscopy in September [address] Calvin Jasso with findings of diminutive descending colon polyp, left-sided diverticulosis, and grade 1 internal hemorrhoids. Recommendations for no further preventative/screening colonoscopies were made. A similar complaint of melena last week was discussed with the patient's oncologist. Subsequently, the patient reports that is scheduled to see Dr. Jasso in [place] next week for further evaluation and management. Please see HPI forwarded from emergency department evaluation below. Forwarded from Emergency Department evaluation: Patient is an 82-year-old male with a history of prostate cancer in remission presents today with near syncopal episodes and dark tarry stool. States that he had a dark bowel movement a week ago has been followed by his oncologist who did some outpatient diagnostic testing and told him he had blood in his stool and was supposed to be being followed up by a turf grower but this has not yet happened. He had a colonoscopy within the last several years which was unremarkable but never had an endoscopy. Hospital Course Hospital Course Hospital Course: Patient was seen and evaluated at the bedside on the day of discharge. Patient is stable for discharge. Patient wishes to be discharged. All patient questions were answered and patient was given time to ask questions. Patient was discharged in stable condition. Patient understands that she can return to ER in case of any sudden changes in health. Total time spent on DC - 38 mins Patient is a 82-year-old male with past medical history of PAD, CAD neuropathy, hypertension hyperlipidemia CAD who presented to hospital for dark tarry stools and having episode of dizziness, near syncope. Otherwise patient denies nausea vomiting abdominal pain chest pain shortness of breath fevers chills. Patient does not have turf grower. Patient had colonoscopy 2 years ago visit was found unremarkable for acute pathology. Assessment Black tarry stool, suspected upper GI bleed Dizziness, near syncope CAD PAD Hypertension Hyperlipidemia s/p EGD, Please see findings and specimens below for detail. Findings:: No evidence of active hemorrhage Small shallow ulcer in proximal/mid gastric body (tiny central clot noted) Biopsy of ulcer margin Resolution 360 Hemoclip placed at ulcer site after biopsy completed Specimens:: Proximal/mid gastric body ulcer margin Recommendations:: Proton pump inhibition Exam Data for Last 24 hours Vital signs and Labs for Last 24 Hours: Temp Pulse Resp BP Pulse Ox O2 Del Method O2 Flow Rate 97.5 F L 52 L 16 145/64 H 99 Room Air 5 06/22/23 11:00 06/22/23 11:00 06/22/23 11:00 06/22/23 11:00 06/22/23 11:00 06/22/23 11:00 06/22/23 09:25 Laboratory Results - last 24 hr 06/21/23 12:18: WBC 4.8, RBC 4.19 L, Hgb 11.7 L, Hct 35.7 L, MCV 85.2, MCH 27.8, MCHC 32.6, RDW 19.2 H, Plt Count 186, MPV 8.6, Neut % (Auto) 41.7, Lymph % (Auto) 41.3, Kaufman % (Auto) 10.4 H, Eos % (Auto) 5.7, Baso % (Auto) 0.9, Neut # (Auto) 2.0, Lymph # (Auto) 2.0, Kaufman # (Auto) 0.5, Eos # (Auto) 0.3, Baso # (Auto) 0.0, Sodium 141, Potassium 4.5, Chloride 108 H, Carbon Dioxide 28, Anion Gap 9.5, BUN 29 H, Creatinine 1.20, Estimated Creat Clear 56, Estimated GFR 58 L, Est GFR ( Amer) 70, Glucose 169 H, Calcium 8.6, Phosphorus 4.1, Magnesium 2.1, Total Bilirubin 0.4, AST 33, ALT 16, Alkaline Phosphatase 60, Troponin I < 0.01, NT-Pro-B Natriuret Pep 768 H, Total Protein 6.2 L, Albumin 3.5, Globulin 2.7, Albumin/Globulin Ratio 1.3, TSH 4.43 06/21/23 13:39: Lactate 1.9, Blood Type O Positive, Antibody Screen Negative
--- NOTE | 2023-06-25 13:31 | SW/DCPLANNER ---
Follow up phone call w/ this patient: patient stated that he is doing well at home and does not have any needs/questions at this time.
== END 2023-06-22 12:56 | disposition home or self-care (01) ==
LOC: ER 15:08 → 2ND 15:33
PROVIDERS: Surgery; Admitting Provider Internal Medicine; Emergency Provider Student in an Organized Health Care Education/Training Program; PCP Nurse Practitioner Family; Visit Provider Internal Medicine
PROC: 0DJ08ZZ Inspection of Upper Intestinal Tract, Via Natural or Artificial Opening Endoscopic (ICD-10-PCS; CPT 43235; principal; 2023-06-22 08:45)
DX: K25.4 Chronic or unspecified gastric ulcer with hemorrhage (principal); R55 Syncope and collapse; R00.1 Bradycardia, unspecified; Z95.1 Presence of aortocoronary bypass graft; Z79.818 Long term (current) use of other agents affecting estrogen receptors and estrogen levels; Z79.899 Other long term (current) drug therapy; Z79.01 Long term (current) use of anticoagulants; I10 Essential (primary) hypertension; I25.10 Atherosclerotic heart disease of native coronary artery without angina pectoris; E78.5 Hyperlipidemia, unspecified; C61 Malignant neoplasm of prostate; R06.9 Unspecified abnormalities of breathing; Z86.010 Personal history of colon polyps
CPT/HCPCS: 43239; 80048; 80053; 83605; 83735; 83880; 84100; 84443; 84484; 85025; 86850; 88305; 93005; 99285; G0378

== ENCOUNTER 2023-08-06 15:03 | Outpatient (CLI) | payer MEDICARE, SELFPAY ==
--- NOTE | 2023-08-06 15:12 | XR_ITS ---
FINAL REPORT CLINICAL HISTORY: Acute lower back pain COMPARISON: None FINDINGS: 3 views of the lumbar spine were obtained. There is a moderate L1 compression fracture with changes from kyphoplasty. No other fracture identified. There is mild and moderate degenerative change. Moderate vascular calcifications are noted. There is leftward curvature of the lumbar spine. IMPRESSION: No acute bony abnormality. Reviewed, Interpreted and Dictated by Cornell Le III, MD Transcribed by Yadira López Authenticated and [facility]
== END 2023-08-06 23:59 ==
LOC: RAD 15:04
PROVIDERS: PCP Nurse Practitioner Family; Visit Provider Nurse Practitioner Family
DX: M54.50 Low back pain, unspecified (principal)
CPT/HCPCS: 72100

== ENCOUNTER 2023-08-07 08:23 | Outpatient (CLI) | payer MEDICARE, SELFPAY ==
[2023-08-07 08:36] LABS: Microscopic, Urine URINE MICROSCOPIC (MICROSCOPIC)
[2023-08-07 08:50] LABS: Appearance,Urine CLEAR (Clear); Bilirubin,Urine Negative (Negative); Blood, Urine Negative (Negative); Color,Urine YELLOW (Yellow); Glucose,Urine (UA) Negative (Negative); Ketones,Urine Negative (Negative); Leukocyte Esterase,Urine Negative (Negative); Nitrate,Urine Negative (Negative); Protein,Urine Negative (Negative); Urobilinogen,Urine 0.2 EU/dl (0.2)
[2023-08-07 10:18] LABS: Squamous Epithelial Cell,Urine Occasional #/hpf (0-5); WBC,Urine Occasional #/hpf (0-3)
== END 2023-08-07 23:59 ==
LOC: LAB.DROPOF 08:24
PROVIDERS: PCP Nurse Practitioner Family; Visit Provider Nurse Practitioner Family
DX: M54.59 Other low back pain (principal)
CPT/HCPCS: 81001

== ENCOUNTER 2023-08-30 17:01 | Emergency (ER) | payer MEDICARE, SELFPAY ==
[2023-08-30] VITALS (7 sets, daily range): BP systolic 156–175; BP diastolic 67–82; PULSE 65–76; RESP 16–18; TEMP 36.8; O2SAT 96–100; BMI 22.4
--- NOTE | 2023-08-30 17:23 | PC.NURSE ---
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
--- NOTE | 2023-08-30 17:25 | MR_ITS ---
PROCEDURE INFORMATION: Exam: MR Lumbar Spine Without Contrast Exam date and time: 08/30/2023 5:44 PM Age: 83 years old Clinical indication: Weakness; Additional info: Le weakness, bladder overflow incontinence TECHNIQUE: Imaging protocol: Magnetic resonance imaging of the lumbar spine without contrast. COMPARISON: CT LUMBAR SPINE WO CON 07/01/2022 10:45 PM FINDINGS: Bones/joints: Postsurgical changes of L1 status post vertebroplasty with approximately 50% loss of height. T2/stir hyperintense signal changes of L4 with horizontal decreased normal T1 signal and loss of vertebral body height compatible with compression fracture resulting in 50% central height loss. Spinal cord: Visualized cord, conus medullaris and cauda equina are unremarkable without compression. L1-L2: L1-L2 small posterior disc protrusion combined with facet osteophytosis and ligamentum flavum thickening results in mild bilateral neural foraminal stenosis. L2-L3: L2-L3 moderate broad-based posterior disc protrusion combined with facet osteophytosis and ligamentum flavum redundancy results in moderate bilateral neural foraminal stenosis. L3-L4: L3-L4 small broad-based posterior disc protrusion with endplate and facet osteophytosis with ligamentum flavum redundancy results in moderate bilateral neural foraminal stenosis, and severe spinal canal stenosis with minimal CSF fluid surrounding the cauda equina. L4-L5: L4-L5 moderate broad-based posterior disc protrusion with facet osteophytosis and ligamentum flavum redundancy results in severe bilateral neural foraminal stenosis, and severe spinal canal stenosis with minimal CSF fluid surrounding the clotted finer. L5-S1: L5-S1 small broad-based posterior disc protrusion with facet osteophytosis results in moderate bilateral neural foraminal stenosis without significant spinal canal stenosis Soft tissues: Unremarkable. IMPRESSION: 1. T2/STIR hyperintense signal changes of L4 with horizontal decreased normal T1 signal and loss of vertebral body height compatible with compression fracture resulting in 50% central height loss. 2. L3-L4 small broad-based posterior disc protrusion with endplate and facet osteophytosis with ligamentum flavum redundancy results in moderate bilateral neural foraminal stenosis, and severe spinal canal stenosis with minimal CSF fluid surrounding the cauda equina. 3. L4-L5 moderate broad-based posterior disc protrusion with facet osteophytosis and ligamentum flavum redundancy results in severe bilateral neural foraminal stenosis, and severe spinal canal stenosis with minimal CSF fluid surrounding the clotted finer.
--- NOTE | 2023-08-30 17:30 | PC.NURSE ---
PT PREPPED FOR MRI
[2023-08-30 17:32] LABS: Microscopic, Urine URINE MICROSCOPIC (MICROSCOPIC)
--- NOTE | 2023-08-30 17:36 | PC.NURSE ---
CANDY CATCHER AT BEDSIDE TO TAKE PT TO MRI
[2023-08-30 17:38] LABS: Appearance,Urine CLEAR (Clear); Bilirubin,Urine Negative (Negative); Blood, Urine Negative (Negative); Color,Urine YELLOW (Yellow); Glucose,Urine (UA) Negative (Negative); Ketones,Urine Negative (Negative); Leukocyte Esterase,Urine Negative (Negative); Nitrate,Urine Negative (Negative); PH,Urine 5.5 (5.0-8.5); Protein,Urine Negative (Negative); Specific Gravity, Urine 1.025 (1.005-1.030); Urobilinogen,Urine 0.2 EU/dl (0.2)
--- NOTE | 2023-08-30 17:39 | ED_ITS ---
Discharge Plan Disposition Patient Disposition: Xfer Short-Term Hosp Chief Complaint: Weakness Prescriptions Prescriptions: No Action bicalutamide 50 mg tablet 50 mg PO DAILY prednisone 5 mg tablet 5 mg PO DAILY ferrous sulfate [FeroSul] 325 mg (65 mg iron) tablet 325 mg PO DAILY aspirin 81 mg tablet,delayed release (DR/EC) 81 mg PO DAILY Hold Instructions: Resume on 06/25/23. if you noticed black colored stools, contact your PCP or come to emergency dept oxybutynin chloride 10 mg tablet extended release 24hr 10 mg PO DAILY cyanocobalamin (vitamin B-12) 1,000 mcg tablet 1,000 mcg PO DAILY pregabalin 100 mg capsule 100 mg PO BID bisoprolol fumarate 5 mg tablet 5 mg PO DAILY levofloxacin 500 mg tablet 500 mg PO DAILY furosemide [Lasix] 20 mg tablet 20 mg PO DAILY Referrals Follow up/Referrals: Josee Preciado APRN [Primary Care Provider] - See instructions Clinical Impressions Clinical Impression: Spinal cord compression, Cauda equina compression, Bilateral leg weakness Discharge ED Provider: Manav Newman General Adult HPI General Chief complaint: Weakness Stated complaint: weakness Time Seen by Provider: 08/30/23 17:04 Mode of Arrival: EMS Source of Information: Patient and EMS Limitations: No Limitations Description of Symptoms (Recalled from ER Triage Doc. by RN): patient presents to ED via [facility] with weakness. Patient denies pain. Patient states he has been weak the past few days unable to ambulate independently. Patient reports no recent falls. History of Present Illness HPI narrative: 83-year-old male history of hypertension, hyperlipidemia, CAD, chronic lumbar spine pain status post vertebroplasty presenting with leg weakness. Patient and patient's state that he has been having bladder incontinence for the last 3 days. Does not urinate during the day, urinates on himself at night. Does not feel the urge to urinate. No dysuria or hematuria. States that today, he sat down in his chair, he was unable to stand up due to bilateral leg weakness after that. No, acute injury, or any other concerns. Related Data Home Medications Medication Instructions Recorded Confirmed aspirin 81 mg tablet,delayed 81 mg PO DAILY Heart disease 11/14/17 08/30/23 release cyanocobalamin (vitamin B-12) 1,000 mcg PO DAILY Supplement 04/15/23 08/30/23 1,000 mcg tablet oxybutynin chloride 10 mg 10 mg PO DAILY URINARY SYMPTOMS 04/15/23 08/30/23 tablet,extended release 24 hr pregabalin 100 mg capsule 100 mg PO BID Pain 04/15/23 08/30/23 bicalutamide 50 mg tablet 50 mg PO DAILY CHEMOTHERAPY 05/02/23 08/30/23 ferrous sulfate 325 mg (65 mg 325 mg PO DAILY Supplement 06/03/23 08/30/23 iron) tablet (FeroSul) prednisone 5 mg tablet 5 mg PO DAILY INFLAMMATION 06/03/23 08/30/23 furosemide 20 mg tablet (Lasix) 20 mg PO DAILY Fluid 06/21/23 08/30/23 bisoprolol fumarate 5 mg tablet 5 mg PO DAILY 08/30/23 08/30/23 levofloxacin 500 mg tablet 500 mg PO DAILY 08/30/23 08/30/23 Allergies Allergy/AdvReac Type Severity Reaction Status Date / Time No Known Allergies Allergy Verified 08/06/23 14:09 [facility] Disclaimer: The information contained in this section may have been updated after the jacquelyn ent was seen, as this information can be updated by other users. Medical History (Updated 08/30/23 @ 19:54 by Manav Newman MD) Acute hypokalemia Bradycardia, sinus CAD (coronary artery disease) Carotid artery stenosis Dizziness Ex-smoker Family history of heart disease HLD (hyperlipidemia) HTN (hypertension) Idiopathic neuropathy Left carotid bruit Lumbar compression fracture Lumbar disc disease Medicare annual wellness visit, subsequent Melena Near syncope Neuropathy Onychodystrophy ERIC (obstructive sleep apnea) Paresthesias Peripheral arterial disease Prostate cancer Swelling of lower extremity Surgical History History of right-sided carotid endarterectomy Hx of CABG Family History Other No significant family history Social History Smoking Status: Never smoker alcohol intake: current substance use type: denies use current occupational status: employed and retired Travel in the last 8 weeks: None household members: spouse housing: house caffeine: No ROS Obtained: Yes All systems reviewed & no additional complaints except as documented Physical Exam General General appearance: alert and in no apparent distress Head Head exam: atraumatic and normocephalic Eye Eye exam: Present normal appearance, PERRL and EOMI ENT ENT exam: Present mucous membranes moist Neck Neck exam: Present normal inspection, full ROM and trachea midline Respiratory Respiratory exam: Present normal lung sounds bilaterally; Absent respiratory distress, wheezes, stridor, accessory muscle use or prolonged expiratory phase Cardiovascular Cardiovascular exam: Present regular rate and normal rhythm Abdominal Exam Abdominal exam: Present soft; Absent distention, tenderness, guarding, rebound or rigidity Extremities Exam Extremities exam: Present normal inspection; Absent edema Back Exam Back exam: Present tenderness and vertebral tenderness (lumbar spine, no evidence of abnormality outwardly) Neurological Exam Neurological exam: Present alert, oriented X3, CN II-XII intact, normal gait (Unable to bear weight, but some effort against gravity) and motor sensory deficit (1 out of 5 strength bilateral lower extremities. Hyperreflexic left patellar and ankle reflexes on the left, hyporeflexic right patella and ankle reflex on right. Rectal tone intact. No saddle anesthesia) Skin Skin exam: Present warm and dry; Absent diaphoresis or erythema Medical Decision Making Medical Records Medical records reviewed: Yes I reviewed the patient's medical records. Harlan Inquiry Pt receiving controlled substance: No Harlan was queried for this patient: No Vital Signs: 08/30/23 17:02 08/30/23 17:05 08/30/23 18:39 Temperature 98.2 F Temperature Source Oral Pulse Rate 70 65 Pulse Rate [Right Radial] 70 Respiratory Rate 18 Blood Pressure 156/67 H 167/69 H Blood Pressure [Right Arm] 156/67 H Blood Pressure Mean [Right Arm] 96 Blood Pressure Source [Right Arm] Automatic Cuff Blood Pressure Position [Right Arm] Supine 02 Sat by Pulse Oximetry 100 98 98 Oxygen Delivery Method Room Air Room Air Room Air Lab Data Lab Results 08/30/23 17:30: Urine Color Yellow, Urine Appearance Clear, Urine pH 5.5, Ur Specific [place] 1.025, Urine Protein Negative, Urine Glucose (UA) Negative, Urine Ketones Negative, Urine Blood Negative, Urine Nitrate Negative, Urine Bilirubin Negative, Urine Urobilinogen 0.2, Ur Leukocyte Esterase Negative, Urine RBC Occasional, Urine WBC Occasional, Ur Squamous Epith Cells Occasional, Urine Bacteria None Orders (Tests/Meds): ORDERS Category Date Time Status CBC w/Auto Diff [Complete Blood Count Auto Diff] Stat Lab 08/30/23 17:25 Ordered CMP [Comprehensive Metabolic Panel] Stat Lab 08/30/23 17:25 Ordered UA [Urinalysis and Microscopic] Stat Lab 08/30/23 17:30 Completed Medical Decision Narrative: 83-year-old male history of hypertension, hyperlipidemia, CAD, chronic lumbar spine pain status post vertebroplasty presenting with leg weakness. Patient and patient's state that he has been having bladder incontinence for the last 3 days. Does not urinate during the day, urinates on himself at night. Does not feel the urge to urinate. No dysuria or hematuria. States that today, he sat down in his chair, he was unable to stand up due to bilateral leg weakness after that. No, acute injury, or any other concerns. No upper extremity symptoms. History was obtained via conversation with patient and . On arrival, patient hemodynamically stable, alert, oriented x4, appropriate, GCS 15, moving all extremities spontaneously, pupils equal and reactive to light. Full physical exam performed and significant for well-appearing 83-year-old male no acute distress. He does have suprapubic fullness, but no tenderness. No lower extremity edema or pain, but he does have 1 out of 5 strength with minimal effort against gravity. Hyporeflexic right lower extremity, hyperreflexic left lower extremity. No saddle anesthesia, rectal tone intact. Bladder scan with 400 mL. Feliz catheter placed Differential includes cauda equina, conus medullaris, demyelinating disease, fracture, disc herniation, among others. Patient was given Toradol 15 mg IV for symptomatic management and correction of underlying abnormalities. Workup independently interpreted and significant for nonactionable urinalysis. MRI of the lumbar spine concerning for severe canal stenosis with cord compression at L4/L5, potential new fracture with 50% height loss at L4. Also has cauda equina compression without acute signal loss. See radiology read for full review of final results. On reevaluation, patient remains at arrival baseline, Feliz anchored. Neurosurgery at [facility] was contacted and case was discussed at length, recommended transfer. Because patient high risk for clinical decompensation if discharged, deemed appropriate for transfer and inpatient admission. Results were relayed to patient who voiced understanding and patient was agreeable to transfer, inpatient admission, and management. Patient was graciously accepted and transferred to [facility] for further definitive management, under Dr. Gardner. Critical Care Critical Care Time Critical Care Time: Yes (neuro) Attestation: On 08/30/23, the high probability of a clinically significant, sudden or life threatening deterioration of the following system(s) required my full and direct attention, intervention and personal management. The time I documented below is in addition to time spent performing reported procedures but includes the following listed in this critical care notation. Total Time Total Critical Care Time: 60
[2023-08-30 18:00] LABS: RBC,Urine Occasional #/hpf (0-3); Squamous Epithelial Cell,Urine Occasional #/hpf (0-5); WBC,Urine Occasional #/hpf (0-3)
--- NOTE | 2023-08-30 18:34 | PC.NURSE ---
Patient back from MRI
--- NOTE | 2023-08-30 18:36 | PC.NURSE ---
pt back in room
--- NOTE | 2023-08-30 19:18 | PC.NURSE ---
calling [facility] transfer center at this time.
--- NOTE | 2023-08-30 19:24 | PC.NURSE ---
[facility] will call back at this time
--- NOTE | 2023-08-30 19:31 | PC.NURSE ---
o/p with at this time.
--- NOTE | 2023-08-30 20:15 | PC.NURSE ---
[facility] called for patient transport to
--- NOTE | 2023-08-30 20:41 | PC.NURSE ---
[facility] present in ED for patient transport to [facility]
== END 2023-08-30 21:02 | disposition short-term general hospital (02) ==
PROVIDERS: Emergency Provider Emergency Medicine; PCP Nurse Practitioner Family
DX: G83.4 Cauda equina syndrome (principal); R53.1 Weakness; G89.29 Other chronic pain; R32 Unspecified urinary incontinence; I10 Essential (primary) hypertension; I25.10 Atherosclerotic heart disease of native coronary artery without angina pectoris; E78.5 Hyperlipidemia, unspecified; I65.29 Occlusion and stenosis of unspecified carotid artery; G62.9 Polyneuropathy, unspecified; I73.9 Peripheral vascular disease, unspecified; G47.33 Obstructive sleep apnea (adult) (pediatric); Z85.46 Personal history of malignant neoplasm of prostate
CPT/HCPCS: 72148; 76376; 81001; 99291

== ENCOUNTER 2023-10-28 12:31 | Outpatient (CLI) | payer MEDICARE, SELFPAY ==
--- NOTE | 2023-10-28 12:35 | XR_ITS ---
FINAL REPORT CLINICAL HISTORY: postop x 2 weeks... back pain FINDINGS: LUMBAR SPINE AP and lateral views were obtained. There is no acute fracture or malalignment. Mild superior endplate compression fractures are seen of L2 and L3.. There are postoperative changes of kyphoplasty at L1. There is moderate diffuse degenerative disc disease. Vertebrae are normal height. Prevertebral soft tissues are unremarkable. IMPRESSION: Postoperative changes of kyphoplasty at L1. Mild superior endplate compression fractures of L2 and L3. Reviewed, Interpreted and Dictated by Talisha Cartwright MD Transcribed by Yelena Abernathy Authenticated and [facility]
== END 2023-10-28 23:59 | disposition home or self-care (01) ==
LOC: RAD 12:32
PROVIDERS: PCP Nurse Practitioner Family; Visit Provider Nurse Practitioner Family
DX: G95.20 Unspecified cord compression (principal); R26.89 Other abnormalities of gait and mobility; M51.9 Unspecified thoracic, thoracolumbar and lumbosacral intervertebral disc disorder; M54.50 Low back pain, unspecified; G83.4 Cauda equina syndrome
CPT/HCPCS: 72100

== ENCOUNTER 2023-12-04 15:26 | Outpatient (CLI) | payer MEDICARE, SELFPAY ==
--- NOTE | 2023-12-04 15:28 | XR_ITS ---
FINAL REPORT TECHNIQUE: Bone mineral density was calculated of the lumbar spine and hip. CLINICAL HISTORY: lumbar compression fracture COMPARISON: None FINDINGS: Using L1-4, the bone mineral density of the spine is 0.962 g/cm2, corresponding to T-score of -1.2. Using the left hip, the bone mineral density of the femoral neck is 0.694 g/cm2, corresponding to a T-score of -1.7. NOTE: T-score: Standard deviation compared with peak bone mass of young adult mean. *Following the recommendations of the International Society of Bone densitometry, classification of hip BMD is based on the lower of two T-scores; total hip or femoral neck. IMPRESSION: Diminished bone mineral density of the lumbar spine and left hip consistent with low bone density. Reviewed, Interpreted and Dictated by Cornell Le III, MD Transcribed by Amanda Gil Authenticated and [facility]
== END 2023-12-04 23:59 | disposition home or self-care (01) ==
LOC: RAD 15:28
PROVIDERS: PCP Nurse Practitioner Family; Visit Provider Nurse Practitioner Family
DX: S32.000A Wedge compression fracture of unspecified lumbar vertebra, initial encounter for closed fracture (principal)
CPT/HCPCS: 77080

== ENCOUNTER 2023-12-23 14:17 | Outpatient (CLI) | payer MEDICARE, SELFPAY ==
[2023-12-23 14:04] LABS: Basophils # 0.1 K/mm3 (0-0.2); Basophils % 1.4 % (0.1-2.0); Eosinophils # 0.3 K/mm3 (0.0-0.4); Eosinophils % 6.8 % (0.1-12.0); Hemoglobin 14.6 g/dL (14.1-18.0); Lymphocytes # 1.8 K/mm3 (0.7-4.5); Lymphocytes % 46.6 % (10-50); Mean Corpuscular HGB Conc 32.5 g/dL (31.8-35.4); Mean Corpuscular Hemoglobin 29.4 pg (27.0-31.2); Mean Corpuscular Volume 90.7 fl (80-94); Mean Platelet Volume 10.6 fl (7.4-10.4); Monocytes # 0.5 K/mm3 (0.1-1.0); Monocytes % 14.5 % (1.7-9.3); Neutrophils # 1.2 K/mm3 (1.8-7.8); Neutrophils % 30.6 % (37.0-80.0); Platelet Count 183 K/mm3 (142-424); Red Blood Count 4.96 M/mm3 (4.60-6.20); Red Cell Distribution Width 16.4 % (11.5-17.5); White Blood Count 3.7 K/mm3 (4.8-10.8)
[2023-12-23 14:38] LABS: Alanine Aminotransferase 15 U/L (12-78); Albumin Level 4.2 g/dl (3.5-5.0); Albumin/Globulin Ratio 1.3 (1.1-1.8); Alkaline Phosphatase 129 U/L (38-126); Anion Gap 12.2 mEq/L (5-15); Aspartate Amino Transferase 31 U/L (17-59); Bilirubin,Total 0.6 mg/dl (0.2-1.3); Blood Urea Nitrogen 24 mg/dl (9-20); Calcium 10.1 mg/dl (8.4-10.2); Carbon Dioxide 33 mmol/L (22.0-30.0); Chloride 101 mmol/L (98-107); Chol/HDL Ratio 5.7 (1-3.5); Cholesterol 227 mg/dl (140-200); Estimated Glomerular Filt Rate 64 ml/min (>60); GFR (African American) 77 ML/MIN (>60); Globulin 3.2 g/dL (1.3-3.2); Glucose 108 mg/dl (74-100); HDL Cholesterol 40 mg/dl (40-60); Magnesium 2.3 mg/dl (1.6-2.3); Potassium 4.2 mmoL/L (3.5-5.1); Sodium 142 mmol/L (136-145); Total Protein,Serum 7.4 g/dl (6.3-8.2); Triglycerides 205 mg/dl (30-150); VLDL Cholesterol 41 mg/dL (0-40)
[2023-12-23 14:48] LABS: C-Reactive Protein 9.9 mg/L (0-4)
[2023-12-23 14:58] LABS: 25-OH Vitamin D, Total 24.9 ng/mL (30-100)
[2023-12-23 15:09] LABS: Thyroid Stimulating Hormone 1.94 uIU/mL (0.465-4.68)
[2023-12-23 15:29] LABS: Vitamin B12 > 1000 pg/mL (239-931)
[2023-12-23 18:45] LABS: Ferritin 80.9 ng/ml (17.9-464)
== END 2023-12-23 23:59 | disposition home or self-care (01) ==
LOC: LAB.DROPOF 14:18
PROVIDERS: PCP Nurse Practitioner Family; Visit Provider Nurse Practitioner Family
DX: I10 Essential (primary) hypertension (principal); E78.5 Hyperlipidemia, unspecified; D64.9 Anemia, unspecified; R41.3 Other amnesia; M81.0 Age-related osteoporosis without current pathological fracture
CPT/HCPCS: 80050; 80053; 80061; 82306; 82607; 82728; 83735; 84443; 85025; 86140

== ENCOUNTER 2023-12-24 13:08 | Outpatient (CLI) | payer MEDICARE, SELFPAY | END 2023-12-24 23:59 | disposition home or self-care (01) | LOC: LAB.DROPOF 13:09 | PROVIDERS: PCP Nurse Practitioner Family; Visit Provider Nurse Practitioner Family | DX: N39.0 Urinary tract infection, site not specified (principal) | CPT/HCPCS: 87086 ==

== ENCOUNTER 2023-12-27 14:48 | Outpatient (CLI) | payer MEDICARE, SELFPAY ==
[2023-12-29 14:52] LABS: Peripheral Smear Review Scanned Result
== END 2023-12-27 23:59 | disposition home or self-care (01) ==
LOC: LAB 14:49
PROVIDERS: PCP Nurse Practitioner Family; Visit Provider Nurse Practitioner Family
DX: D72.819 Decreased white blood cell count, unspecified (principal)
CPT/HCPCS: 36415

== ENCOUNTER 2024-01-14 10:46 | Outpatient (RCR) | payer MEDICARE, SELFPAY ==
[2024-01-14 12:34] LABS: Basophils # 0.1 K/mm3 (0-0.2); Basophils % 1.4 % (0.1-2.0); Eosinophils # 0.2 K/mm3 (0.0-0.4); Eosinophils % 4.2 % (0.1-12.0); Hematocrit 42.1 % (42.0-52.0); Hemoglobin 14.5 g/dL (14.1-18.0); Lymphocytes # 2.3 K/mm3 (0.7-4.5); Lymphocytes % 52.2 % (10-50); Mean Corpuscular HGB Conc 34.3 g/dL (31.8-35.4); Mean Corpuscular Hemoglobin 29.7 pg (27.0-31.2); Mean Corpuscular Volume 86.5 fl (80-94); Mean Platelet Volume 8.8 fl (7.4-10.4); Monocytes # 0.6 K/mm3 (0.1-1.0); Monocytes % 14.4 % (1.7-9.3); Neutrophils # 1.2 K/mm3 (1.8-7.8); Neutrophils % 27.7 % (37.0-80.0); Platelet Count 185 K/mm3 (142-424); Red Blood Count 4.87 M/mm3 (4.60-6.20); Red Cell Distribution Width 16.3 % (11.5-17.5); White Blood Count 4.4 K/mm3 (4.8-10.8)
[2024-01-14 12:39] LABS: MANUAL DIFFERENTIAL MANUAL DIFFERENTIAL (MANUAL DIFF)
[2024-01-14 13:32] LABS: Eosinophils % 4 % (0-3); Lymphocytes % 52 % (10-50); Monocytes % 10 % (2-9); Neutrophils % 33 % (42-76); Platelet Estimate Normal; RBC Morphology Normal; Total Cells Counted 100
--- NOTE | 2024-01-14 14:09 | HMH.PTOPWND ---
Rehab Outpt Wound Evaluation Rehab OP Wound Evaluation Start: 01/14/24 10:59 Freq: Status: Active Protocol: Document 01/14/24 13:58 PHOSUKUMAR (Rec: 01/14/24 14:09 PHORNE [id number]) E-signed By Nathen Bundy, PT Subjective/History History History This is the initial PT wound care eval for Nicko Baumann, 83 yowm who presents with c/o L foot wound x ~ 1 mo with insidious onset of symptoms. His provides a significant portion of his hx during this visit. She states, He moves his feet at night constantly and I think that's what caused this place. She also states, I'm more worried about the place on his bottom than I am his foot because it 's been there since August and it won't heal and nobody can tell me why. She also reports the L foot wound had a scab on the exterior which fell off this week at some point. He reports no c/o pain in his L foot or buttocks at this time. He has PMH of PAD, prostate CA, CAD, idiopathic neuropathy, osteoporosis, recent lumbar comp fx now S/P fixation surgery (spontaneous) , HTN, incontinence. Subjective Subjective Currently no c/o pain or tenderness in the betzy-wound skin. New diagnosis of cancer in past 12 No months? Wound Eval Wound Left Lateral Foot Wound Type neuropathic foot wound Is This a Chronic Wound No Wound Length (cm) 0.5 Wound Width (cm) 0.6 Wound Bed Appearance [place] Wound Margins Description Well Defined Wound Debridement Amount of Tissue None Removed Dressing Change Patient Tolerance Tolerated Well Wound Problems/Impairments Impairments Problems/Impairmments Wound Care Needs,Impaired Self Care/Self Management Prognosis Rehab Potential Innapropriate for Skilled Therapy Comment Pt L foot wound appears to be fully epithelialized at this time and has no need for selective debridement or further PT wound care currently. Spoke at length with his re: buttock wound which is ~0.1cm x 0.1cm and likely due to MASD. She is currently following appropriate protocol for treating this wound with a zinc based skin protecting ointment except she is vigorously cleaning this off every morning. Recommended she wipe the top layer of skin protectant off and allow the skin to heal underneath. Clinical Impression Consistent with Diagnosis Yes Outpatient Therapy Plan of Care Treatment Plan May Include Eval/Re-Eval Yes Frequency Times per week 0 Duration Number of Weeks 0 Addendums This patient is a candidate for social No or vocational rehab? Patient/Guardian verbally acknowledges Yes understanding of treatment program and consents to further treatment? Patient/Guardian verbally acknowledges Yes understanding of diagnosis, prognosis and goals for treatment? Eval Complexity PT Charges 94403 - High Complexity PHYSICIAN CERTIFICATION: I certify the specified therapy services for Nicko Baumann are required, authorized, and reviewed every 30 days.
== END 2024-01-14 10:50 | disposition home or self-care (01) ==
LOC: PT 10:46
PROVIDERS: Visit Provider Nurse Practitioner Family
DX: L97.529 Non-pressure chronic ulcer of other part of left foot with unspecified severity (principal)
CPT/HCPCS: 85007; 85025; 85027; 97163

== ENCOUNTER 2024-02-13 14:05 | Outpatient (CLI) | payer MEDICARE, SELFPAY ==
[2024-02-13 16:50] LABS: Basophils # 0.1 K/mm3 (0-0.2); Basophils % 1.3 % (0.1-2.0); Eosinophils # 0.2 K/mm3 (0.0-0.4); Eosinophils % 5.1 % (0.1-12.0); Hematocrit 46.8 % (42.0-52.0); Hemoglobin 14.8 g/dL (14.1-18.0); Lymphocytes # 2.2 K/mm3 (0.7-4.5); Lymphocytes % 60.3 % (10-50); Mean Corpuscular HGB Conc 31.6 g/dL (31.8-35.4); Mean Corpuscular Hemoglobin 29.7 pg (27.0-31.2); Mean Corpuscular Volume 94.1 fl (80-94); Mean Platelet Volume 10.1 fl (7.4-10.4); Monocytes # 0.5 K/mm3 (0.1-1.0); Monocytes % 13.4 % (1.7-9.3); Neutrophils # 0.7 K/mm3 (1.8-7.8); Neutrophils % 19.9 % (37.0-80.0); Platelet Count 180 K/mm3 (142-424); Red Blood Count 4.98 M/mm3 (4.60-6.20); Red Cell Distribution Width 16.2 % (11.5-17.5); White Blood Count 3.7 K/mm3 (4.8-10.8)
[2024-02-13 16:56] LABS: MANUAL DIFFERENTIAL MANUAL DIFFERENTIAL (MANUAL DIFF)
[2024-02-13 17:49] LABS: Eosinophils % 5 % (0-3); Lymphocytes % 52 % (10-50); Monocytes % 25 % (2-9); Neutrophils % 18 % (42-76); RBC Morphology Normal; Total Cells Counted 100
[2024-02-13 17:50] LABS: Platelet Estimate Normal
[2024-02-16 10:01] LABS: Peripheral Smear Review Scanned Result
== END 2024-02-13 23:59 | disposition home or self-care (01) ==
LOC: LAB.DROPOF 02-15 16:42
PROVIDERS: PCP Nurse Practitioner Family; Visit Provider Nurse Practitioner Family
DX: D72.829 Elevated white blood cell count, unspecified (principal); D72.819 Decreased white blood cell count, unspecified
CPT/HCPCS: 85007; 85025; 85027

== ENCOUNTER 2024-02-19 10:48 | Outpatient (CLI) | payer MEDICARE, SELFPAY ==
[2024-02-19] MEDS: DENOSUMAB 60 MG/ML SYRINGE SQ (11:06)
[2024-02-19 11:30] VITALS: BP 146/81; PULSE 79; O2SAT 98
== END 2024-02-19 11:45 | disposition home or self-care (01) ==
LOC: INF 10:48
PROVIDERS: PCP Nurse Practitioner Family; Visit Provider Nurse Practitioner Family
DX: M81.0 Age-related osteoporosis without current pathological fracture (principal)
CPT/HCPCS: 96372; J0897

== ENCOUNTER 2024-03-26 11:00 | Outpatient (RCR) | payer MEDICARE, SELFPAY ==
--- NOTE | 2023-11-19 11:30 | HMH.PTOPEV ---
PT Outpatient Evaluation Rehab PT Outpatient Evaluation Start: 11/19/23 10:45 Freq: Status: Active Protocol: Document 11/19/23 11:17 MISSY (Rec: 11/19/23 11:30 MISSY [id number]) E-signed By Michel Bruce, PT Outpatient Therapy Subjective History Subjective History Pt reports h/o chronic LBP for 'years', and reports recent ( 'earlier this year') kyphoplasty of L1 . Pt reports improved LBP over the last couple months, 'and really the bigger issue at this point is my walking and balance. Pt reports requiring use of Rollator FWW for safety at home and community. Pt reports multiple falls before acquisition of Rollator. PMH: lumbar stenosis, lumbar compression fx, neuropathy New diagnosis of cancer in past 12 No months? Chief Complaint Pain,Stiff,Weakness,Decreased Coordination Symptom Type Ache,Dull Symptoms Relieved By Rest/Positioning Symptoms Aggravated By Physical Activity Prior Functional Limitations Housework,Standing,Stairs, Balance Current Functional Limitations Housework,Standing,Walking, Balance Symptom Description Constant but Variable Level of pain today (0-10) 2 Pain scale - at its best (0-10) 1 Pain scale - at its worst (0-10) 4 Lumbopelvic Eval Posture Thoracic Spine Posture Standing Position Increased Kyphosis Lumbar Spine Posture Standing Position Flattened Assistive device Assistive Devices Rolling / Wheeled Walker Gait Observation General Gait Pattern Observation Shuffling Step Palapation tenderness right lumbar spinal tenderness Yes: 1/4 paraspinal tenderness Yes: 1/4 left lumbar spinal tenderness Yes: 1/4 paraspinal tenderness Yes: 2-3/4 Accessory Movement L-spine Vertebrae Accessory Movements [employer] that [employer] Symptoms L3 bilateral L4 bilateral L5 bilateral Range of Motion Lumbar Spine Active Flexion Range of 0-10 Motion (degrees) Lumbar Spine Active Extension Range of 0-5 Motion (degrees) Left Lumbar Spine Lateral Flexion Active 0-10 Range of Motion (degrees) Right Lumbar Spine Lateral Flexion 0-10 Active Range of Motion (degrees) Lumbar Spine ROM Limitations Soft Tissue Tightness Manual Muscle Test Bilateral Knee Extension Strength Grade 4 Good Knee Flexion Strength Grade 4 Good Hip Flexion Strength Grade 4- Good- Hip Abduction Strength Grade 4- Good- Hip Adduction Strength Grade 4 Good Hip External Rotation Strength Grade 4- Good- Hip Internal Rotation Strength Grade 4- Good- Gluteus Elvin Strength Grade 4- Good- Ankle Dorsiflexion Strength Grade 4 Good Gastronemius/Soleus Strength Grade 4 Good Balance Eval Timed Up and Go Test 3. Is the Timed Up and Go Test result < yes 12 seconds? Tinetti Sitting Balance Sitting Balance Steady, safe Arising from Chair Ability to Arise Able, uses arms to help Attempts to Arise Arises on 1st attempt Standing Balance Immediate Standing Balance Steady with support Standing Balance Unsteady Nudged Response Begins to fall Standing with Eyes Closed Unsteady Turning Step Pattern Turning 360 Degrees Continuous steps Stability Turning 360 Degrees Steady Sitting Down Sitting Down Uses arms or unsteady Gait and Step Initiation of Gait No hesitancy Right Foot Step Length Does pass stance foot Right Foot Step Height Does not clear floor Left Foot Step Length Does pass stance foot Left Foot Step Height Does not clear floor Step Description Step Symmetry Step length appears equal Step Continuity Steps appear continuous Gait Description Path Description Mild/moderate deviation Trunk Description No sway Walking Stance Heels together Scoring and Interpretation Tinetti Composite Score (points) 17 Oswestry Index Section 1 Pain Intensity The pain comes and goes and is moderate Section 2 Personal Care (Washing,Dresing) my way of washing or dressing even though it causes some pain Section 3 Lifting I can only lift very light weights at most Section 4 Walking I cannot walk more than 1/2 mile without increasing pain Section 5 Sitting Pain prevents me from sitting for more than 1/2 hour Section 6 Standing I cannot stand more than 1/2 hour without increasing pain Section 7 Sleeping I get no pain in bed Section 8 Social Life Pain has restricted my social life and I do not go out often Section 9 Traveling I get extra pain while traveling which compels me to seek alternate fo Section 10 Changing Degreee of Pain My pain fluctuates, but overall is definitely getting better Score and Risk Level Oswestry Sc 24 Oswestry Risk Level Moderate Disability Outpatient Therapy Assessment Impairments Problems/Impairmments Palpation Tenderness,Impaired Range of Motion,Impaired Strength,Impaired Gait Pattern ,Impaired Walking,Impaired Standing,Impaired Household Care,Impaired Tinnetti Score, Impaired TUG Time,Subjective C /O Pain,Impaired Self Care/ Self Management Prognosis Rehab Potential Fair Clinical Impression Consistent with Diagnosis Yes Short Term Goals Number of Weeks 4 Decreased Palpation Tenderness Yes: 0-1/4 lumbar spine/mm Increase Range of Motion Yes: 50% of WFL LUMBAR AROM Increase Strength Yes: 4/5 B/L LE'S Improve Gait Pattern with Assistive Yes: WFL W/FWW Device Increase Ability to Walk Yes: 15MIN Increase Ability to Stand Yes: 15MIN Improve Ability For Household Care Yes: 15MIN Increase Tinnetti Score Yes: 20-22 Decrease TUG Time Yes: 15-17SEC W/FWW Decrease Subjective C/O Pain Yes: 3/10 W/ABOVE ACTIVITIES Patient to be Ind w/ HEP Yes Retirement Goals Number of Weeks 10-12 Increase Range of Motion Yes: 75% OF WFL LUMBAR AROM Increase Strength Yes: 4+-5/5 B/L LE'S Improve Gait Pattern with Assistive Yes: WFL W/SC OR QC Device Increase Ability to Walk Yes: 30MIN Increase Ability to Stand Yes: 30MIN Improve Ability For Household Care Yes: 30MIN Increase Tinnetti Score Yes: 24-26 Decrease TUG Time Yes: 10-12 SEC W/QC OR SC Decrease Subjective C/O Pain Yes: 0-2/10 W/ABOVE ACTIVITIES Patient to be Ind w/ Advanced HEP Yes Outpatient Therapy Plan of Care Treatment Plan May Include Therapeutic Exercise Including Home Yes Exercise Program Manual Therapy Techniques Yes Neuromuscular Re-education Yes Therapeutic Activities to Return to Yes Previous Functional/Work Level Gait Training Yes ADL/Self Care Education Yes Mechanical Traction Yes Dry Needling Yes Thermal Modalities Yes Electrical Stimulation Yes Ultrasound/Phonophoresis Yes Orthotics/Bracing/Splinting Yes Eval/Re-Eval Yes Aquatic Therapy Yes Frequency Times per week 2-3 Duration Number of Weeks 10-12 Addendums This patient is a candidate for social No or vocational rehab? Patient/Guardian verbally acknowledges Yes understanding of treatment program and consents to further treatment? Patient/Guardian verbally acknowledges Yes understanding of diagnosis, prognosis and goals for treatment? Eval Complexity PT Charges 96949 - High Complexity Shoulder/Elbow Eval Shoulder Objective Measurements Elbow Objective Measurements PHYSICIAN CERTIFICATION: I certify the specified therapy services for Nicko Baumann are required, authorized, and reviewed every 30 days.
--- NOTE | 2023-12-19 11:38 | HMH.RHREAS ---
Rehab Reassessment Rehab OP Re-assessment Start: 11/19/23 10:45 Freq: Status: Active Protocol: Document 12/19/23 11:16 MISSY (Rec: 12/19/23 11:38 MISSY [id number]) E-signed By Michel Bruce, PT Jerome Sitting Balance Sitting Balance Steady, safe Arising from Chair Ability to Arise Able, uses arms to help Attempts to Arise Able, requires >1 attempt Standing Balance Immediate Standing Balance Steady with support Standing Balance Steady, wide stance Nudged Response Begins to fall Standing with Eyes Closed Unsteady Turning Step Pattern Turning 360 Degrees Continuous steps Stability Turning 360 Degrees Steady Sitting Down Sitting Down Uses arms or unsteady Gait and Step Initiation of Gait No hesitancy Right Foot Step Length Does pass stance foot Right Foot Step Height Completely clears floor Left Foot Step Length Does pass stance foot Left Foot Step Height Completely clears floor Step Description Step Symmetry Step length appears equal Step Continuity Steps appear continuous Gait Description Path Description Straight Trunk Description No sway but posturing Walking Stance Heels together Scoring and Interpretation Tinetti Composite Score (points) 19 Interpretation of Scores High risk for falls(< 19) Oswestry Index Section 1 Pain Intensity The pain is moderate and does not vary much Section 2 Personal Care (Washing,Dresing) increase the pain, but I manage not to change my way of doing it Section 3 Lifting Pain prevents me from lifting weights off the floor Section 4 Walking I cannot walk more than one mile wihtout increasing pain Section 5 Sitting Pain prevents me from sitting for more than one hour Section 6 Standing I cannot stand more than 1 hour without increasing pain Section 7 Sleeping Because of my pain, my normal night's sleep is less than 6 hours sleep Section 8 Social Life Pain has no significant effect on my social life apart from limiting Section 9 Traveling I get extra pain while traveling, but it does not compel me to seek al Section 10 Changing Degreee of Pain My pain seems to be getting better, but improvement is slow Score and Risk Level Oswestry Sc 21 Oswestry Risk Level Moderate Disability Rehab Re-assessment Subjective Subjective Pt reports no significant improvements in balance, strength and/or LBP since I eval, but 'I think in another month I'm gonna see some of this stuff getting better.' Pt reports 5/10 LBP on VAS this am. Objective Objective Notes TINETTI: 19 VS 17 ON I EVAL OSWESTRY: 21 VS 24 ON I EVAL MMT: B/L HIP FLX 4-/5, B/L HIP ABD 4/5, B/L HIP 4-/5, B/L HIP ADD 4-4+/5, B/L KNEE EXT 5 /5, B/L KNEE FLX 4--4/5, B/L DF 5/5 TTP: LUMBAR SPINE MIDLINE 1/4, B/L LUMBAR PARASPINALS 0-1/4 AROM: LUMBAR FLX 3-10, EXT +3, B/L SB 0-5 Assessment Progress Assessment Slower Than Expected Assessment Notes SLIGHT IMPROVEMENTS IN TINETTI , OSWESTRY, STRENGTH, AND TTP Patient goals met STG'S 10/09 LTG'S 07/11 Goals Not Met STG'S 01/08. LTG'S 04/10 Plan Plan Pt to continue w/skilled P.T. to make further improvements in ROM, strength, balance, and gait to allow for optimal function Frequency of Therapy 1-2x/wk Duration of therapy 10-12 wks Time and Billing Re-Eval Time 14 Re-Eval Billing Units 0 PHYSICIAN CERTIFICATION: I certify the specified therapy services for Nicko Baumann are required, authorized, and reviewed every 30 days.
--- NOTE | 2024-01-20 11:45 | HMH.RHREAS ---
Rehab Reassessment Rehab OP Re-assessment Start: 11/19/23 10:45 Freq: Status: Active Protocol: Document 01/20/24 10:01 MISSY (Rec: 01/20/24 11:45 MISSY [id number]) E-signed By Michel Bruce, PT Tinetti Sitting Balance Sitting Balance Steady, safe Arising from Chair Ability to Arise Able, uses arms to help Attempts to Arise Arises on 1st attempt Standing Balance Immediate Standing Balance Steady with support Standing Balance Narrow stance w/o support Nudged Response Staggers, catches self Standing with Eyes Closed Unsteady Turning Step Pattern Turning 360 Degrees Continuous steps Stability Turning 360 Degrees Steady Sitting Down Sitting Down Safe, steady Gait and Step Initiation of Gait No hesitancy Right Foot Step Length Does pass stance foot Right Foot Step Height Completely clears floor Left Foot Step Length Does pass stance foot Left Foot Step Height Completely clears floor Step Description Step Symmetry Step length appears equal Step Continuity Steps appear continuous Gait Description Path Description Straight Trunk Description No sway Walking Stance Heels together Scoring and Interpretation Tinetti Composite Score (points) 24 Interpretation of Scores At risk for falls (19-24) Oswestry Index Section 1 Pain Intensity The pain comes and goes and is moderate Section 2 Personal Care (Washing,Dresing) increase the pain and I find it necessary to change my way of doing it Section 3 Lifting lifting heavy weights off the floor, but I can manage light to medium Section 4 Walking I cannot walk more than 1/4 mile without increasing pain Section 5 Sitting Pain prevents me from sitting for more than 1/2 hour Section 6 Standing I can stand as long as I want without pain Section 7 Sleeping I get no pain in bed Section 8 Social Life My social life is normal but increases the degree of pain Section 9 Traveling I get extra pain while traveling, but it does not compel me to seek al Section 10 Changing Degreee of Pain My pain is neither getting better or worse Score and Risk Level Oswestry Sc 22 Oswestry Risk Level Moderate Disability Rehab Re-assessment Subjective Subjective Pt reports 0-1/10 LBP on VAS this am, and 'I really feel like my endurance and strength is better since we last checked it.' Objective Objective Notes TINETTI: 24 VS 17 ON I EVAL OSWESTRY: 22 VS 24 ON I EVAL MMT: B/L HIP FLX 4/5, B/L HIP ABD 4/5, B/L HIP EXT 4--4/5, B /L HIP ADD 4-4+/5, B/L KNEE EXT 5/5, B/L KNEE FLX 4/5, B/L DF 5/5 TTP: LUMBAR SPINE MIDLINE 1/4, B/L LUMBAR PARASPINALS 0-1/4 AROM: LUMBAR FLX 3-15, EXT +3, B/L SB 0-10 Assessment Progress Assessment Slower Than Expected Assessment Notes significantly improved strength, tinetti score, and overall functional endurance since I eval Patient goals met STG'S 04/10 LTG'S 09/08 Goals Not Met STG'S 07/11. LTG'S 02/08 Plan Plan Pt to continue w/skilled P.T. to make further improvements in ROM, strength, balance, and gait to allow for optimal function Frequency of Therapy 1-2x/wk Duration of therapy 6-8wks Time and Billing Re-Eval Time 12 Re-Eval Billing Units 1 PHYSICIAN CERTIFICATION: I certify the specified therapy services for Nicko Baumann are required, authorized, and reviewed every 30 days.
== END 2024-03-26 11:05 | disposition home or self-care (01) ==
LOC: PT 11:00
PROVIDERS: Visit Provider Nurse Practitioner Family
DX: R26.89 Other abnormalities of gait and mobility (principal); M51.9 Unspecified thoracic, thoracolumbar and lumbosacral intervertebral disc disorder
CPT/HCPCS: 97010; 97014; 97110; 97112; 97116; 97163; 97164; 97530; G0283

== ENCOUNTER 2024-05-06 14:32 | Outpatient (CLI) | payer MEDICARE, SELFPAY ==
--- NOTE | 2024-05-06 14:36 | XR_ITS ---
FINAL REPORT CLINICAL HISTORY: foot pain COMPARISON: None FINDINGS: LEFT FOOT: Three views of the left foot were obtained. There is no acute fracture or dislocation. Mild and moderate degenerative changes present. There is an erosion or subchondral cyst in the medial head of the fifth metatarsal. A plantar calcaneal spur is present. There is soft tissue swelling in the forefoot. IMPRESSION: Erosion or subchondral cyst in the medial head of the fifth metatarsal. If indicated, MRI could further evaluate. Mild and moderate degenerative change. Reviewed, Interpreted and Dictated by Cornell Le III, MD Transcribed by Amanda Gil Authenticated and [facility]
[2024-05-06 15:12] LABS: Basophils # 0.1 K/mm3 (0-0.2); Basophils % 2.4 % (0.1-2.0); Eosinophils # 0.2 K/mm3 (0.0-0.4); Eosinophils % 4.9 % (0.1-12.0); Hematocrit 41.3 % (42.0-52.0); Hemoglobin 14.8 g/dL (14.1-18.0); Lymphocytes # 2.3 K/mm3 (0.7-4.5); Lymphocytes % 59.1 % (10-50); Mean Corpuscular HGB Conc 35.7 g/dL (31.8-35.4); Mean Corpuscular Hemoglobin 30.8 pg (27.0-31.2); Mean Corpuscular Volume 86.3 fl (80-94); Monocytes # 0.5 K/mm3 (0.1-1.0); Monocytes % 13.9 % (1.7-9.3); Neutrophils # 0.8 K/mm3 (1.8-7.8); Neutrophils % 19.6 % (37.0-80.0); Platelet Count 173 K/mm3 (142-424); Red Blood Count 4.79 M/mm3 (4.60-6.20); White Blood Count 3.8 K/mm3 (4.8-10.8)
[2024-05-06 15:16] LABS: MANUAL DIFFERENTIAL MANUAL DIFFERENTIAL (MANUAL DIFF)
[2024-05-06 15:42] LABS: Hemoglobin A1C 5.4 % (4.0-6.0)
[2024-05-06 15:55] LABS: Alanine Aminotransferase 17 U/L (12-78); Albumin Level 4.3 g/dl (3.5-5.0); Albumin/Globulin Ratio 1.6 (1.1-1.8); Alkaline Phosphatase 52 U/L (38-126); Anion Gap 11.7 mEq/L (5-15); Aspartate Amino Transferase 27 U/L (17-59); Bilirubin,Total 0.7 mg/dl (0.2-1.3); Blood Urea Nitrogen 23 mg/dl (9-20); Calcium 9.4 mg/dl (8.4-10.2); Carbon Dioxide 31 mmol/L (22.0-30.0); Chloride 106 mmol/L (98-107); Estimated Glomerular Filt Rate 58 ml/min (>60); GFR (African American) 70 ML/MIN (>60); Globulin 2.7 g/dL (1.3-3.2); Glucose 113 mg/dl (74-100); Potassium 4.7 mmoL/L (3.5-5.1); Sodium 144 mmol/L (136-145)
[2024-05-06 16:02] LABS: C-Reactive Protein 2.5 mg/L (0-4)
[2024-05-06 16:05] LABS: Erythrocyte Sedimentation Rate 27 mm/hr (0-20)
[2024-05-06 16:31] LABS: Anisocytosis 1+; Eosinophils % 3 % (0-3); Lymphocytes % 65 % (10-50); Monocytes % 12 % (2-9); Neutrophils % 19 % (42-76); Platelet Estimate Normal; Total Cells Counted 100
== END 2024-05-06 23:59 | disposition home or self-care (01) ==
LOC: LAB 14:33
PROVIDERS: PCP Nurse Practitioner Family; Visit Provider Nurse Practitioner
DX: M79.672 Pain in left foot (principal); M79.89 Other specified soft tissue disorders; Z13.1 Encounter for screening for diabetes mellitus
CPT/HCPCS: 36415; 73630; 80053; 83036; 85007; 85025; 85027; 85651; 86140

== ENCOUNTER 2024-06-03 14:35 | Outpatient (CLI) | payer MEDICARE, SELFPAY ==
[2024-06-03 16:56] LABS: Basophils # 0.1 K/mm3 (0-0.2); Basophils % 1.6 % (0.1-2.0); Eosinophils # 0.2 K/mm3 (0.0-0.4); Eosinophils % 4.2 % (0.1-12.0); Hematocrit 43.5 % (42.0-52.0); Hemoglobin 14.8 g/dL (14.1-18.0); Lymphocytes # 2.2 K/mm3 (0.7-4.5); Lymphocytes % 61.1 % (10-50); Mean Corpuscular HGB Conc 34.1 g/dL (31.8-35.4); Mean Corpuscular Hemoglobin 30.6 pg (27.0-31.2); Mean Corpuscular Volume 89.8 fl (80-94); Monocytes # 0.6 K/mm3 (0.1-1.0); Monocytes % 16.9 % (1.7-9.3); Neutrophils # 0.6 K/mm3 (1.8-7.8); Neutrophils % 16.1 % (37.0-80.0); Platelet Count 170 K/mm3 (142-424); Red Blood Count 4.85 M/mm3 (4.60-6.20); Red Cell Distribution Width 14.5 % (11.5-17.5); White Blood Count 3.7 K/mm3 (4.8-10.8)
[2024-06-03 16:59] LABS: MANUAL DIFFERENTIAL MANUAL DIFFERENTIAL (MANUAL DIFF)
[2024-06-03 18:02] LABS: Anisocytosis 2+; Eosinophils % 5 % (0-3); Lymphocytes % 58 % (10-50); Macrocytosis 1+; Monocytes % 14 % (2-9); Neutrophils % 21 % (42-76); Platelet Estimate Normal; Total Cells Counted 100
[2024-06-03 18:03] LABS: Microcytosis 1+; Polychromasia 1+
[2024-06-05 16:28] LABS: Peripheral Smear Review Scanned Result
== END 2024-06-03 23:59 | disposition home or self-care (01) ==
LOC: LAB.DROPOF 06-04 09:40
PROVIDERS: PCP Nurse Practitioner Family; Visit Provider Nurse Practitioner Family
DX: R23.3 Spontaneous ecchymoses (principal)
CPT/HCPCS: 85007; 85025; 85027

== ENCOUNTER 2024-08-05 08:33 | Outpatient (CLI) | payer MEDICARE, OTHER, SELFPAY | END 2024-08-05 23:59 | disposition home or self-care (01) | LOC: LAB.DROPOF 08-07 08:35 | PROVIDERS: PCP Nurse Practitioner Family; Visit Provider Nurse Practitioner | DX: L98.491 Non-pressure chronic ulcer of skin of other sites limited to breakdown of skin (principal); L03.116 Cellulitis of left lower limb | CPT/HCPCS: 87070; 87077; 87205 ==

== ENCOUNTER 2024-08-07 10:35 | Outpatient (CLI) | payer MEDICARE, OTHER, SELFPAY ==
--- NOTE | 2024-08-07 10:46 | XR_ITS ---
FINAL REPORT CLINICAL HISTORY: Skin ulcer/Bone inefection COMPARISON: 05/06/2024 FINDINGS: LEFT FOOT: Three views show no evidence of acute displaced fracture or dislocation of the visualized bony architecture. Osteopenia is present. There is moderate degenerative change of the first MTP joint. There are soft tissue destructive changes in the medial aspect of the fifth metatarsal head and the fifth proximal phalanx. These changes are stable. IMPRESSION: Chronic erosive changes of the first MTP joint as described, stable when compared to the prior exam of 05/06/2024. No new bony abnormalities are identified. Reviewed, Interpreted and Dictated by Talisha Cartwright MD Transcribed by Amanda Gil Authenticated and [facility]
[2024-08-07 10:50] LABS: Basophils % 0.9 % (0.1-2.0); Eosinophils # 0.2 K/mm3 (0.0-0.4); Eosinophils % 5.6 % (0.1-12.0); Hematocrit 44.8 % (42.0-52.0); Hemoglobin 15.1 g/dL (14.1-18.0); Lymphocytes # 2.4 K/mm3 (0.7-4.5); Mean Corpuscular HGB Conc 33.7 g/dL (31.8-35.4); Mean Corpuscular Hemoglobin 30.2 pg (27.0-31.2); Mean Corpuscular Volume 89.6 fl (80-94); Mean Platelet Volume 9.4 fl (7.4-10.4); Monocytes # 0.9 K/mm3 (0.1-1.0); Neutrophils # 0.7 K/mm3 (1.8-7.8); Neutrophils % 15.5 % (37.0-80.0); Platelet Count 160 K/mm3 (142-424); Red Cell Distribution Width 13.9 % (11.5-17.5); White Blood Count 4.3 K/mm3 (4.8-10.8)
[2024-08-07 11:01] LABS: MANUAL DIFFERENTIAL MANUAL DIFFERENTIAL (MANUAL DIFF)
[2024-08-07 11:27] LABS: Chloride 102 mmol/L (98-107)
[2024-08-07 11:28] LABS: Albumin Level 4.4 g/dl (3.5-5.0); Potassium 4.4 mmoL/L (3.5-5.1); Sodium 141 mmol/L (136-145)
[2024-08-07 11:30] LABS: Alanine Aminotransferase 18 U/L (12-78); Anion Gap 12.4 mEq/L (5-15); Aspartate Amino Transferase 28 U/L (17-59); Blood Urea Nitrogen 19 mg/dl (9-20); Carbon Dioxide 31 mmol/L (22.0-30.0); Estimated Glomerular Filt Rate 64 ml/min (>60); GFR (African American) 77 ML/MIN (>60)
[2024-08-07 11:31] LABS: Albumin/Globulin Ratio 1.6 (1.1-1.8); Alkaline Phosphatase 66 U/L (38-126); Bilirubin,Total 0.6 mg/dl (0.2-1.3); Calcium 9.7 mg/dl (8.4-10.2); Globulin 2.7 g/dL (1.3-3.2); Glucose 103 mg/dl (74-100); Total Protein,Serum 7.1 g/dl (6.3-8.2)
[2024-08-07 11:34] LABS: Platelet Estimate Normal; RBC Morphology Normal; Total Cells Counted 100
[2024-08-07 11:41] LABS: Neutrophils % 24 % (42-76)
[2024-08-07 11:42] LABS: Eosinophils % 4 % (0-3); Lymphocytes % 64 % (10-50); Monocytes % 8 % (2-9)
[2024-08-07 11:53] LABS: C-Reactive Protein 2.6 mg/L (0-4)
[2024-08-07 12:12] LABS: Erythrocyte Sedimentation Rate 28 mm/hr (0-20)
== END 2024-08-07 23:59 | disposition home or self-care (01) ==
LOC: RAD 10:37
PROVIDERS: PCP Nurse Practitioner Family; Visit Provider Nurse Practitioner
DX: M79.672 Pain in left foot (principal); L03.116 Cellulitis of left lower limb; L98.491 Non-pressure chronic ulcer of skin of other sites limited to breakdown of skin
CPT/HCPCS: 36415; 73630; 80053; 85007; 85025; 85027; 85651; 86140

== ENCOUNTER 2024-08-17 10:34 | Outpatient (CLI) | payer MEDICARE, OTHER, SELFPAY ==
--- NOTE | 2024-08-17 10:42 | US_ITS ---
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 FINDINGS: BILATERAL ANKLE BRACHIAL INDICES Pressure indices are as follows are: RIGHT LOWER EXTREMITY Ankle brachial pressure index: 1.17 Toe brachial pressure index: 0.48 COMMENTS: Normal LEFT LOWER EXTREMITY Ankle brachial pressure index: 0.67 Toe brachial pressure index: 0.48 COMMENTS: Moderate peripheral arterial disease IMPRESSION: No evidence of right lower extremity peripheral arterial disease. Moderate peripheral arterial disease in the left lower extremity. Reviewed, Interpreted and Dictated by Bridgett Cameron MD Transcribed by Jody Damon Authenticated and [facility]
== END 2024-08-17 23:59 | disposition home or self-care (01) ==
LOC: RT 10:35
PROVIDERS: PCP Nurse Practitioner Family; Visit Provider Nurse Practitioner
DX: R09.89 Other specified symptoms and signs involving the circulatory and respiratory systems (principal)
CPT/HCPCS: 93923

== ENCOUNTER 2024-08-24 10:36 | Outpatient (CLI) | payer MEDICARE, OTHER, SELFPAY ==
[2024-08-24] MEDS: DENOSUMAB 60 MG/ML SYRINGE SUBCUT (10:45)
[2024-08-24 10:49] VITALS: BP 159/68; PULSE 50; RESP 18; TEMP 36.4; O2SAT 95
== END 2024-08-24 10:49 | disposition home or self-care (01) ==
LOC: INF 10:37
PROVIDERS: PCP Nurse Practitioner Family; Visit Provider Nurse Practitioner Family
DX: M81.0 Age-related osteoporosis without current pathological fracture (principal)
CPT/HCPCS: 96372; J0897

== ENCOUNTER 2024-09-08 09:03 | Day surgery (SDC) | payer MEDICARE, OTHER, SELFPAY ==
[2024-09-08] VITALS (20 sets, daily range): BP systolic 148–193; BP diastolic 56–89; PULSE 47–64; RESP 16–20; TEMP 36.6; O2SAT 93–99; BMI 25.0
--- NOTE | 2024-09-08 07:16 | IR_ITS ---
APPROVED REPORT Patient Location: Outpatient PROCEDURES Right femoral arterial access Pigtail catheter placement in the abdominal aorta Abdominal aortography Repositioning of the catheter in the abdominal aorta Bilateral iliofemoral runoff INDICATION Jmi claudication class IV-V, Abnormal MEGAN left leg 0.67, Peripheral artery disease Informed consent was obtained prior to the procedure. COMPLICATIONS NONE Estimated Blood Loss: LESS THAN 10 ML TECHNIQUE 1% lidocaine used to size right groin the right femoral artery 6 via center technique and a 5 Stateless sheath is placed in the right femoral artery. A pigtail catheter was advanced to the distal abdominal aorta where distal abdominal aortography was performed. The catheter was then repositioned and bilateral iliofemoral runoff was performed. The apparatus was then removed patient was transferred to the postop holding in stable condition for sheath removal ANGIOGRAPHIC RESULTS Distal abdominal aorta is calcified with a distal eccentric 10 to 20% stenosis Bilateral common and external iliac arteries are mildly calcified but widely patent. Both internal iliac arteries have calcification but are widely patent Left common femoral artery is heavily calcified with a stenosis greater than 80% which extends adjacent to the profunda femoris. The profunda femoris artery is patent and has proximal 40 and mid vessel 50% stenosis. The left superficial femoral artery has proximal eccentric calcified 50% stenosis. In Jefferson's canal there is extensive calcification with stenoses of 70 and 80%.. The popliteal artery then is occluded. Pregeniculate collaterals then reconstitute the anterior tibialis artery and the posterior tibialis artery. There is scant flow into the left foot Right common femoral artery has 50% calcified concentric stenosis. The profunda femoris artery is patent but obturated with the cath insertion site. The right superficial femoral artery has proximal 30% stenosis and 70 to 80% calcified stenosis at Jefferson's canal. An additional calcified concentric 80 to 90% stenosis was identified. The popliteal has additional 80% eccentric calcified stenoses at the patellar level. It then gives rise to an anterior tibialis artery which has proximal calcified stenosis in the artery then becomes subtotally occluded. There is recanalization of the peroneal artery and the distal anterior tibialis artery with two-vessel runoff into the right foot IMPRESSION Peripheral artery disease as described above most notably calcified stenosis in the left femoral artery Diffuse and severe disease throughout the left SFA and an occluded distal left popliteal artery which collateralizes and gives slow two-vessel runoff to the left foot PLAN 1. Will refer patient to vascular surgery at [facility] for consideration of left femoral artery endarterectomy. I believe reducing the calcium burden at that site will likely improve inflow and allow healing of the left foot. 2. Patient may require additional revascularization of the left SFA and left popliteal artery to promote left foot ulcer healing although this is less desirable considering the occlusion of the popliteal artery 3. Supportive care 4. Xarelto 2.5 twice daily plus aspirin 81 mg daily 5. LDL less than 55 to achieve that high intensity statin Electronically signed by : Malik Morin MD 09/11/2024 10:11:04
[2024-09-08 09:32] LABS: Basophils % 0.9 % (0.1-2.0); Eosinophils # 0.3 K/mm3 (0.0-0.4); Hematocrit 45.1 % (42.0-52.0); Hemoglobin 15.2 g/dL (14.1-18.0); Lymphocytes # 2.7 K/mm3 (0.7-4.5); Lymphocytes % 60.1 % (10-50); Mean Corpuscular HGB Conc 33.7 g/dL (31.8-35.4); Mean Platelet Volume 10.1 fl (7.4-10.4); Monocytes # 0.9 K/mm3 (0.1-1.0); Neutrophils # 0.5 K/mm3 (1.8-7.8); Platelet Count 159 K/mm3 (142-424); Red Blood Count 5.07 M/mm3 (4.60-6.20); Red Cell Distribution Width 14.2 % (11.5-17.5); White Blood Count 4.5 K/mm3 (4.8-10.8)
[2024-09-08 09:33] LABS: Neutrophils % 11.8 % (37.0-80.0)
[2024-09-08 09:35] LABS: MANUAL DIFFERENTIAL MANUAL DIFFERENTIAL (MANUAL DIFF)
[2024-09-08 09:45] LABS: Anion Gap 9.1 mEq/L (5-15); Blood Urea Nitrogen 24 mg/dl (9-20); Calcium 9.4 mg/dl (8.4-10.2); Carbon Dioxide 32 mmol/L (22.0-30.0); Chloride 104 mmol/L (98-107); Creatinine Clearance Estimated 63 mL/min (50-200); Estimated Glomerular Filt Rate 64 ml/min (>60); GFR (African American) 77 ML/MIN (>60); Glucose 103 mg/dl (74-100); Potassium 4.1 mmoL/L (3.5-5.1); Sodium 141 mmol/L (136-145)
[2024-09-08 10:20] LABS: Eosinophils % 10 % (0-3); Lymphocytes % 60 % (10-50); Monocytes % 16 % (2-9); Neutrophils % 13 % (42-76); Total Cells Counted 100
[2024-09-08 10:21] LABS: Platelet Estimate Normal; RBC Morphology Normal
[2024-09-08] MEDS: HEPARIN 1,000 UNITS/500ML NS (CATH LAB) 3000 UNIT IV (10:28)
[2024-09-08] MEDS: diphenhydrAMINE 50MG/ML VIAL 50 MG IV (10:28)
[2024-09-08] MEDS: LIDOCAINE 1% 10ML MDV 20 ML IJ (10:28)
[2024-09-08] MEDS: 0.9 % SODIUM CHLORIDE 500 ML 25 ML IV (10:29)
[2024-09-08] MEDS: MIDAZOLAM HCL 1MG/ML 5ML VIAL 1 MG IV (10:46)
[2024-09-08] MEDS: FENTANYL 100MCG/2ML VIAL 50 MCG IV (10:47)
[2024-09-08] MEDS: HYDRALAZINE 20MG/ML VIAL 20 MG IV (11:36)
[2024-09-08] MEDS: IOPAMIDOL-250 (51%) 100ML BOT 120 ML IV (12:00)
== END 2024-09-08 15:18 | disposition home or self-care (01) ==
PROVIDERS: PCP Nurse Practitioner Family; Visit Provider Internal Medicine
PROC: (CPT 36200; principal; 2024-09-08 11:00)
DX: I70.245 Atherosclerosis of native arteries of left leg with ulceration of other part of foot (principal); L97.521 Non-pressure chronic ulcer of other part of left foot limited to breakdown of skin; I10 Essential (primary) hypertension; I25.10 Atherosclerotic heart disease of native coronary artery without angina pectoris; I77.1 Stricture of artery; I25.810 Atherosclerosis of coronary artery bypass graft(s) without angina pectoris; E78.5 Hyperlipidemia, unspecified; I65.23 Occlusion and stenosis of bilateral carotid arteries; C61 Malignant neoplasm of prostate; L98.491 Non-pressure chronic ulcer of skin of other sites limited to breakdown of skin; Z95.1 Presence of aortocoronary bypass graft; Z79.899 Other long term (current) drug therapy; Z79.82 Long term (current) use of aspirin; Z79.01 Long term (current) use of anticoagulants; Z82.49 Family history of ischemic heart disease and other diseases of the circulatory system; Z87.891 Personal history of nicotine dependence
CPT/HCPCS: 36200; 75625; 75716; 80048; 85007; 85025; 85027; 99152; C1725; C1769; C1894; J0360; J1200; J1644; J3010; Q9966

== ENCOUNTER 2025-02-22 11:00 | Outpatient (CLI) | payer MEDICARE, OTHER, SELFPAY ==
--- OUTSIDE RECORDS SUMMARY | 2025-02-10 13:00 | XMS_ITS | Encounter Summary ---
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) Procedures CT Angio Abdomen Pelvis w Runoff Fabián Salgado MD [address] [place] [phone] Phone: tel: fax: Referral ID Status Reason Start Date Expiration Date V isits Requested Visits Authorized [id number] Authorized 02/10/2025 08/12/2026 1 1 Reason for Visit * Reason Comments Critical Limb Ischemia Encounter Details Date Type Department Care Team (Latest Contact Info) Description 02/10/2025 1:00 PM EDT Office Visit [place] [facility] [address]th [address] [place] [address] Fabián Salgado MD [address] [place] [phone] Ischemic ulcer, 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 No 09/04/2023 Within the last year, have y ou been humiliated or emotionally abused in other ways by your partner or ex-partner? No 09/04/2023 Within the last year, have y ou been kicked, hit, slapped, or otherwise physically hurt by your partner or ex-partner? No 09/04/2023 Sexually Abused Not on file 09/04/2023 Hunger Vital Sign Answer Date Recorded Within the past 12 months, y ou worried that your food would run out before you got the money to buy more. Never true 09/04/19 24 Within the past 12 months, t he food you bought just didn't last and you didn't have money to get more. Never true 09/04/2023 PRAPARE - Transportation Answer Date Re corded In the past 12 months, has l ack of transportation kept you from medical appointments or from getting medications? No 11/2023 In the past 12 months, has l ack of transportation kept you from meetings, work, or from getting things needed for daily living? No 09/04/2023 Housing Stability Vital Sign Answer Phillip e Recorded In the last 12 months, was t here a time when you were not able to pay the mortgage or rent on time? No 09/04/2023 Number of Places Lived in the Last Year Not on f ile 09/04/2023 In the last 12 months, was t here a time when you did not have a steady place to sleep or slept in a alf (including now)? No 09/04/2023 AUDIT-C Answer Date Recorded Q1: How often do you have a drink containing alc ohol? 2-4 times a month 02/10/2025 Q2: How many drinks containi ng alcohol do you have on a typical day when you are drinking? 1 or 2 02/10/2025 Q3: How often do you have si x or more drinks on one occasion? Never 02/10/2025 Utilities Answer Date Recorded In the past 12 months has e electric, gas, oil, or water company threatened to shut off services in your home? No 09/04/2023 Sex and Gender Information Value Date Recorded Sex Assigned at Not on file Legal Sex Male 7:34 PM EDT Gender Identity Not on file Sexual Orientation Not on file documented as of this encounter Last Filed Vital Signs Vital Sign Reading Time Taken Comments Blood Pressure 162/67 02/10/2025 12:52 PM EDT Pulse 96 02/10/2025 12:43 PM EDT Temperature 36.1 C (97 F) 02/10/2025 12:43 PM EDT Respiratory Rate - - Oxygen Saturation 99% 02/10/2025 12:43 PM EDT Inhaled Oxygen Concentration - - Weight 85.9 kg (189 lb 6 oz) 02/10/2025 12:43 PM EDT Height 185.4 cm (6' 1 ) 02/10/2025 12:43 PM EDT Body Mass Index 24.99 02/10/2025 12:43 PM EDT documented in this encounter Functional Status * AUDIT-C Score Answer Date of Assessment Author 2 02/10/2025 12:46 PM EDT Zulema Rodgers * Question Answer Date of Assessment Author Q1: How often do you have a drink containing alcohol? 2-4 times a month 02/10/2025 12:46 PM EDT Zulema Rodgers Q2: How many drinks containing alcohol do you have on a typical day when you are drinking? 1 or 2 02/10/2025 12:46 PM EDT Zulema Rodgers Q3: How often do you have six or more drinks on one occasion? 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 [place] [address] PCP - General 11/11/20 documented as of this encounter
[2025-02-22] MEDS: DENOSUMAB 60 MG/ML SYRINGE SUBCUT (11:11)
[2025-02-22 11:15] VITALS: BP 148/70; PULSE 56; RESP 18; TEMP 36.2; O2SAT 97
--- OUTSIDE RECORDS SUMMARY | 2025-02-22 11:42 | XMS_ITS | Encounter Summary ---
Author Organization Healthcare Address [address] [place] [address] Care Team Providers Care Stencil Cutter Machine Name Role Phone Pancho Singh MD Primary Care Provider [phone] Encounter Details Date Type Department Care Team (Late st Contact Info) Description 09/08/2024 Orders Only External Location [address] [place] [address] Provider, External Social History Tobacco Use Types Packs/Day Years Used Date Smoking Tobacco: Never Smokeless Tobacco: Never Alcohol Use Standard Drinks/Week Comments Never 0 (1 standard drink = 0.6 oz pur e alcohol) Humiliation, Afraid, Rape, and Kick questionnair e [...] place to sleep or slept in a fdc (including now)? No 09/04/2023 Utilities Answer Date Recorded In the past 12 months has th e electric, gas, oil, or water company threatened to shut off services in your home? No 09/04/2023 Sex and Gender Information Value Date Recorded Sex Assigned at Not on file Legal Sex Male 7:34 PM EDT Gender Identity Not on file Sexual Orientation Not on file documented as of this encounter Plan of Treatment Upcoming Encounters Date Type Department Care Team (Late st Contact Info) Description 04/21/2025 11:00 AM EDT [facility] [place] [facility] [address] [facility] 5th Floor [address] [place] [address] Fabián Salgado MD [address] [facility] [address] [place] [address] documented as of this encounter Procedures Procedure Name Priority Date/Time Associated Diagnosis Comments IR OUTSIDE IMAGES 09/08/2024 7:16 AM EDT documented in this encounter Results * IR OUTSIDE IMAGES (09/08/2024 7:16 AM EDT) Anatomical Region Laterality Modality X-Ray Angiograph y 09/08/2024 7:16 AM EDT us External Provider IMG IR PROCEDURES Final Result documented in this encounter Visit Diagnoses Not on filedocumented in this encounter Additional Health Concerns Assessment Noted Time A fall risk assessment has been complete d for the patient 10/16/2023 1:52 PM EDT A Body Mass Index follow-up plan has been documented for the patient 10/26/2023 11:34 AM EDT documented as of this encounter Care Teams Stencil Cutter Machine Relationship Specialty Start Date End Date Pancho Singh MD [address] [place] [address] PCP - General 11/11/20 documented as of this encounter
--- OUTSIDE RECORDS SUMMARY | 2025-02-22 11:42 | XMS_ITS | Encounter Summary ---
Author Organization Healthcare Address [address] [place] [address] Care Team Providers Care Principal Technical Writer Name Role Phone Pancho Singh MD Primary Care Provider [phone] Encounter Details Date Type Department Care Team (Late st Contact Info) Description 08/06/2023 Orders Only External Location [address] [place] [address] Josee Preciado, GUEST SERVICES ASSOCIATE [address] [place] [address] Social History Tobacco Use Types Packs/Day Years Used Date Smoking Tobacco: Never Assessed Sex and Gender Information Value Date Recorded Sex Assigned at Not on file Legal Sex Male 7:34 PM EDT Gender Identity Not on file Sexual Orientation Not on file documented as of this encounter Plan of Treatment Upcoming Encounters Date Type Department Care Team (Late st Contact Info) Description 04/21/2025 11:00 AM EDT Office Visit [place] [facility] [address] [facility] 5th Floor Wing [address], [address] [place] [address] Fabián Salgado MD [address] [facility] [address] [place] [address] documented as of this encounter Procedures Procedure Name Priority Date/Time Associated Diagnosis Comments XR OUTSIDE IMAGES 08/06/2023 3:13 PM EST documented in this encounter Results * XR OUTSIDE IMAGES (08/06/2023 3:13 PM EST) Anatomical Region Laterality Modality Radiographic [place] ging 08/06/2023 3:13 PM EST us Josee Preciado GUEST SERVICES ASSOCIATE IMG XR PROCEDURES Final Re sult documented in this encounter Visit Diagnoses Not on filedocumented in this encounter Care Teams Principal Technical Writer Relationship Specialty Start Date End Date Pancho Singh MD [address] [place] [address] PCP - General 11/11/20 documented as of this encounter
--- OUTSIDE RECORDS SUMMARY | 2025-02-22 11:42 | XMS_ITS | Encounter Summary ---
Author Organization Healthcare Address [address] [place] [address] Care Team Providers Care Nuclear Medicine Supervisor Name Role Phone Pancho Singh MD Primary Care Provider [phone] Encounter Details Date Type Department Care Team (Latest Contact Info) Description 02/10/2025 Travel Social History Tobacco Use Types Packs/Day Years [...] place to sleep or slept in a usp (including now)? No 09/04/2023 AUDIT-C Answer Date [...] the past 12 months has th e [email or web address], gas, oil, or water company threatened to shut off services in your home? No 09/04/2023 Sex and Gender Information Value Date Recorded Sex Assigned at Not on file Legal Sex Male 7:34 PM EDT Gender Identity Not on file Sexual Orientation Not on file documented as of this encounter Functional Status * AUDIT-C Score [...] [place] [facility] [address] [facility] 5th Floor [address], [address] [place] [address] Fabián Salgado MD [address] [facility] [address] [place] [address] documented as of this encounter Visit Diagnoses Not on filedocumented in this encounter Additional Health Concerns Assessment Noted Time A fall risk assessment has been complete d for the patient 02/10/2025 12:49 PM EDT A Body Mass Index follow-up plan has been documented for the patient 12/15/2024 11:26 AM EDT documented as of this encounter Care Teams Nuclear Medicine Supervisor Relationship Specialty Start Date End Date Pancho Singh MD [address] [place] [address] PCP - General 11/11/20 documented as of this encounter
--- OUTSIDE RECORDS SUMMARY | 2025-02-22 11:42 | XMS_ITS | Encounter Summary ---
Author Organization [facility] Address [address] [place] [address] Care Team Providers Care Roller Coaster Operator Name Role Phone Josee Preciado DAMIAN Primary Care Provider [phone] Encounter Details Date Type Department Care Team (Late st Contact Info) Description 09/24/2024 Results Follow-Up [facility] [address] [address] Rogelio Martin, [address] [place] [address] Social History Tobacco Use Types Packs/Day Years Used Date Smoking Tobacco: Former Cigarettes 1.5 25 1 07/14/1956 - 05/14/1982 Passive Smoke Exposure: Past Smokeless Tobacco: Never Alcohol Use Standard Drinks/Week Comments No 0 (1 standard drink = 0.6 oz pur e alcohol) AUDIT-C Answer Date Recorded Frequency of Alcohol Consumption Never 05/14/2019 Average Number of Drinks Not on file 019 Frequency of Binge Drinking Not on file 05/01 PHQ-2 Answer Date Recorded Retired PHQ-9: Brief Depression Severity Measure Score 0 12/11/2022 PHQ-2 Answer Date Recorded Retired PHQ-9: Brief Depression Severity Measure Score 0 12/11/2022 Sex and Gender Information Value Date Recorded Sex Assigned at Not on file Legal Sex Male 2:10 PM EST Gender Identity Not on file Sexual Orientation Not on file 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 Not on file Not on file Not on file documented as of this encounter Plan of Treatment Upcoming Encounters Date Type Department Care Team (Late st Contact Info) Description 03/30/2025 11:15 AM EDT Office Visit [facility] [address] [facility] [address] [place] [address] Rogelio Martin DO [address] [facility] [address] [place] [address] documented as of this encounter Visit Diagnoses Not on filedocumented in this encounter Care Teams Roller Coaster Operator Relationship Specialty Start Date End Date Josee Preciado APRN [address] [place] [address] PCP - General Internal Medicine 08/07/23 documented as of this encounter
--- OUTSIDE RECORDS SUMMARY | 2025-02-22 11:42 | XMS_ITS | Clinical Summary ---
Author Organization [facility] Address [address] [place] [address] Care Team Providers Care Spiritual Counselor Name Role Phone Pancho Singh MD Primary Care Provider [phone] Allergies No known active allergies Medications bicalutamide (Casodex) 50 MG chemo tablet Take 1 tablet (50 mg total) by mouth every morning. 07/09/19 24 Active bisoprolol (Zebeta) 5 MG tablet Take 1 tablet by mouth every morning. 08/06/19 24 Active furosemide (Lasix) 20 MG tablet Take 1 tablet by mouth every morning. 08/21/19 24 Active predniSONE (Deltasone) 5 MG tablet Take 1 tablet by mouth every morning. 08/12/19 24 Active pregabalin (Lyrica) 100 MG capsule Take 1 capsule by mouth 2 times a day. 08/12/19 24 Active ASPIRIN 81 MG chewable tablet Chew 1 tablet every morning. Active ferrous sulfate 325 (65 Fe) MG tablet Take 1 tablet by mouth daily with breakfast. 08/07/19 24 Active polyethylene glycol (Miralax) 17 g packet Take 17 g by mouth 1 (one) time each day. Active celecoxib (CeleBREX) 100 MG capsule Take 1 capsule (100 mg) by mouth 2 (two) times a day. 09/05/19 24 Active acetaminophen (Tylenol) 500 MG tablet Take 2 tablets (1,000 mg) by mouth every 8 (eight) hours. 100 tablet 09/05/19 24 Active Additional Information Patient not taking.Reported on 02/10/2025 docusate sodium 100 MG capsule Take 100 mg by mouth 2 (two) times a day. 09/05/19 Active Additional Information Patient not taking.Reported on 02/10/2025 ondansetron ODT (Zofran-ODT) 4 MG disintegrating tablet Take 1 tablet (4 mg) by mouth every 6 (six) hours if needed for nausea or vomiting. 20 tablet 09/05/19 Active Additional Information Patient not taking.Reported on 02/10/2025 senna-docusate (Tiffanie-Colace) 8.6-50 MG tablet Take 1 tablet by mouth 2 (two) times a day. 09/05/19 Active Additional Information Patient not taking.Reported on 02/10/2025 melatonin 3 MG tablet Take 2 tablets (6 mg) by mouth at night if needed for sleep. 0 09/05/19 Active Additional Information Patient not taking.Reported on 02/10/2025 levoFLOXacin (Levaquin) 500 MG tablet Take 1 tablet (500 mg) by mouth 1 (one) time each day. May restart if needed. 09/05/19 Active Additional Information Patient not taking.Reported on 02/10/2025 mupirocin (Bactroban) 2 % ointment Apply 1 Application topically 2 times a day. 08/06/19 Active prednisoLONE acetate (Pred-Forte) 1 % ophthalmic suspension Active oxybutynin XL (Ditropan-XL) 10 MG 24 hr tablet Take 1 tablet by mouth every morning. Active leuprolide acetate, 6 Month, (Eligard) 45 MG injection Inject under the skin every 6 (six) months. Active Santyl 250 UNIT/GM ointment APPLY TOPICALLY TO THE AFFECTED AREA(S) DAILY NEEDED FOR wound care 12/24/19 Active triamcinolone (Kenalog) 0.5 % cream apply topically to the affected area(s) twice daily 09/18/19 Active Cyanocobalamin (VITAMIN B-12 PO) Take 1,000 mg by mouth 1 time each day with lunch. Active cholecalciferol (Vitamin D-3) 50 MCG (2000 UT) capsule Take 1 capsule by mouth every morning. Active denosumab (Prolia) 60 MG/ML injection Inject 1 mL under the skin every 6 months. Active CALCIUM CITRATE PO Take 200 mg by mouth every morning. Active Active Problems Problem Noted Date Diagnosed Date Ischemic ulcer, limited to breakdown of skin Limb ischemia 12/15/2024 ERIC (obstructive sleep apnea) 09/02/2023 CAD (coronary artery disease) 09/02/2023 Arthritis 09/02/2023 Resolved Problems Problem Noted Date Diagnosed Date Resolved Date Weakness of both legs 08/31/20232023 Spinal stenosis of lumbar re gion with neurogenic claudication 08/30/2023 09/05/2023 Encounters Date Type Department Care Team Description 02/15/2025 Telephone [facility] [address] [place] [address] Fabián Salgado MD 02/10/2025 1:00 PM EDT Office Visit [facility] [address] [place] [address] [address], [address] [place] [phone] Fabián Salgado MD Ischemic ulcer, 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) 02/10/2025 Travel 12/21/2024 10:15 AM EDT Pre-Admission Testing [facility] [address] [place] [address], [facility] [place] [address] 12/21/2024 Travel 12/15/2024 11:00 AM EDT Office Visit [facility] [address] [place] [address] [address], [address] [place] [address] Ej Abrams MD Limb ischemia (Primary Dx) 12/15/2024 9:35 AM EDT - 12/15/2024 11:59 PM EDT Hospital Encounter [facility] [address] [place] [phone] 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 No 09/04/2023 AUDIT-C Answer Date [...] In the past 12 months has th [employer], gas, oil, or water company threatened to shut off services in your home? No 09/04/2023 Sex and Gender Information Value Date Recorded Sex Assigned at Not on file Legal Sex Male 7:34 PM EDT Gender Identity Not on file Sexual Orientation Not on file Last Filed Vital Signs Vital Sign Reading Time Taken Comments Blood Pressure 162/67 02/10/2025 12:52 PM EDT Pulse 96 02/10/2025 12:43 PM EDT Temperature 36.1 C (97 F) 02/10/2025 12:43 PM EDT Respiratory Rate 20 09/05/2023 12:23 PM EST Oxygen Saturation 99% 02/10/2025 12:43 PM EDT Inhaled Oxygen Concentration - - Weight 85.9 kg (189 lb 6 oz) 02/10/2025 12:43 PM EDT Height 185.4 cm (6' 1 ) 02/10/2025 12:43 PM EDT Body Mass Index 24.99 02/10/2025 12:43 PM EDT Plan of Treatment Upcoming Encounters Date Type Department Care Team (Late st Contact Info) Description 04/21/2025 11:00 AM EDT Office Visit [place] [facility] [address] [facility] 5th Floor [address] [place] [address] Fabián Salgado MD [address] [facility] [address] [place] [address] Health Maintenance Due Date Last Done Comments [facility]-Depression Screening 1940 [facility]-Medicare Annual Wellness (AWV) 1940 [facility]-/Child/Adol SDOH Screenings 1940 [facility]- SDOH Screenings 1958 [facility]-Adult SDOH Screenings 1958 [facility]-DTaP,Tdap,and Td Vaccines (1 - Tdap) 1959 [facility]-Zoster Vaccines (1 of 2) 1959 [facility]-Pneumococcal Vaccine: 50+ Years (1 of 1 - PCV) 1990 [facility]-RSV Vaccine: 60+ Years or (1 - 1-dose 75+ series) 2015 [id number] Vaccine (8 - Pfizer risk season) 2024 05/07/2024, 05/21/2023, 04/26/2022, Additional history exists [facility]-Influenza Vaccine (#1) 2025 04/30/2023, HPV Vaccines Aged Out No longer eligi ble based on patient's age to complete this topic [facility]-HIB Vaccines Aged Out No longer e ligible based on patient's age to complete this topic [facility]-Hepatitis A Vaccines Aged Out No longer eligible based on patient's age to complete this topic [facility]-IPV Vaccines Aged Out No longer e ligible based on patient's age to complete this topic [facility]-Rotavirus Vaccines Aged Out No lo nger eligible based on patient's age to complete this topic Procedures Procedure Name Priority Date/Time Associated Diagnosis Comments VAS ANKLE BRACHIAL INDEX - MEGAN ONLY Routine 12/15/2024 10:36 AM EDT 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 MEGAN pressures may be unreliable due to history of medial calcinosis. Left: Abnormal study consistent with hemodynamically significant arterial inflow disease resulting in a severe insufficiency at rest. MEGAN pressures may be unreliable due to history of medial calcinosis. . COMMUNICATION: Per this written report. Preliminary report signed by Nahed Deleon on 12/15/2024 1:22 PM By electronically signing this report, I, the attending physician, attest that I have personally reviewed the images/data for the above examination(s) and I agree with the final edited report. Drafted by Nahed [place]leon on 12/15/2024 12:51 PM Final report signed by Rolando Lynch on 12/16/2024 9:39 AM Narrative 12/16/2024 9:39 AM EDT CLINICAL INDICATION: Tissue loss TECHNIQUE: Non-invasive, continuous wave doppler exam with segmental pressures and spectral analysis of the lower extremity was performed. COMPARISON: prior exam performed on 12/03/2024. Rt: non compressible Lt: 0.50 FINDINGS: Right: Multiphasic waveforms are demonstrated at the level of the GAS REGULATOR REPAIRER HELPER. Monophasic waveforms are demonstrated at the levels of the CHICKEN FANCIER and DPA. Segmental pressures are within normal limits with a CHICKEN FANCIER MEGAN of 0.92 (130 mmHg) and a DPA MEGAN of 1.34 (190 mmHg). However, MEGAN pressures may be unreliable due to history of medial calcinosis. Digit pressures are 44 mmHg. Left: Monophasic waveforms are demonstrated at the levels of the GAS REGULATOR REPAIRER HELPER, DPA and CHICKEN FANCIER. Segmental pressures are below normal limits with a PT MEGAN of 0.32 (45 mmHg) DP MEGAN of 0.49 (70 mmHg). Unable to detect digit waveform. Procedure Note Rolando Lynch MD - 12/16/2024 CLINICAL INDICATION: Tissue loss TECHNIQUE: Non-invasive, continuous wave doppler exam with segmental pressures andspectral analysis of the lower extremity was performed. COMPARISON: prior exam performed on 12/03/2024. Rt: non compressible Lt: 0.50 FINDINGS: Right: Multiphasic waveforms are demonstrated at the level of the GAS REGULATOR REPAIRER HELPER.Monophasic waveforms are demonstrated at the levels of the CHICKEN FANCIER and DPA.Segmental pressures are within normal limits with a CHICKEN FANCIER MEGAN of 0.92 (130mmHg) and a DPA MEGAN of 1.34 (190 mmHg). However, MEGAN pressures may beunreliable due to history of medial calcinosis. Digit pressures are 44mmHg. Left: Monophasic waveforms are demonstrated at the levels of the GAS REGULATOR REPAIRER HELPER, DPAand CHICKEN FANCIER. Segmental pressures are below normal limits with a PT MEGAN of0.32 (45 mmHg) DP MEGAN of 0.49 (70 mmHg). Unable to detect digitwaveform. IMPRESSION: Right: Abnormal study consistent with hemodynamically significantinfrainguinal arterial disease. MEGAN pressures may be unreliable due tohistory of medial calcinosis. Left: Abnormal study consistent with hemodynamically significant arterialinflow disease resulting in a severe insufficiency at rest. MEGAN pressuresmay be unreliable due to history of medial calcinosis. . COMMUNICATION: Per this written report. Preliminary report signed by Nahed Deleon on 12/15/2024 1:22 PM By electronically signing this report, I, the attending physician, attkushat I have personally reviewed the images/data for the aboveexamination(s) and I agree with the final edited report. Drafted by Nahed Deleon on 12/15/2024 12:51 PM Final report signed by Rolando Lynch on 12/16/2024 9:39 AM us Ej Abrams MD CV VASCULAR PROCEDURES Final Res ult from Last 3 Months [place] [address] HUMAN Advance Directives Documents on File Type Date Recorded Patient Nuclear Fuel Processing Technician Expl anation Power of Mechanical Striper 09/07/2023 12:49 PM Advance Directives and Livin g Will 09/07/2023 12:48 PM Power of Mechanical Striper 08/31/2023 4:31 PM Advance Directives and Livin g Will 08/31/2023 3:45 PM * Full Code (Latest Code Status on File) Date Activated Date Inactivated Comments 09/05/2023 10:43 AM * Full Code Date Activated Date Inactivated Comments 09/03/2023 12:14 PM 09/05/2023 10:43 AM Question Answer Comments Patient has decision-making capacity? Yes * Full Code Date Activated Date Inactivated Comments 08/31/2023 12:07 AM 09/03/2023 12:14 PM Question Answer Comments Patient has decision-making capacity? Yes Care Teams Spiritual Counselor Relationship Specialty Start Date End Date Pancho Singh MD [address] [place] [address] PCP - General 11/11/20
--- OUTSIDE RECORDS SUMMARY | 2025-02-22 11:42 | XMS_ITS | Clinical Summary ---
Author Organization [facility] Address [address] [place] [address] Care Team Providers Care Deckhand Tuna Boat Name Role Phone Josee Preciado APRN Primary Care Provider [phone] Allergies No known active allergies Medications aspirin 81 MG EC tablet Take 1 tablet by mouth Daily. Ld 03-29-23 Active bisoprolol (ZEBeta) 10 MG tablet 0.5 tablets. 2 Active oxybutynin (DITROPAN) 5 MG tablet Take 2 tablets by mouth Daily. Active furosemide (LASIX) 20 MG tablet 3 Active ferrous sulfate (FeroSul) 325 (65 FE) MG tablet Take 1 tablet by mouth Daily With Breakfast. 30 tablet 1 4 Active celecoxib (CeleBREX) 100 MG capsule 4 Active leuprolide (Eligard) 45 MG injection Inject 45 mg by subcutaneous route for 180 days. 4 Active Cyanocobalamin (Vitamin B-12 ER) 1000 MCG tablet controlled-rele ase Take by mouth. Activ e pregabalin (LYRICA) 100 MG capsuleIndicati ons:Seropositiv e rheumatoid arthritis,High risk medication use,Current use of steroid medication Take 1 capsule by mouth 2 (Two) Times a Day. 60 capsule 5 5 Active predniSONE (DELTASONE) 5 MG tablet Take 1 tablet by mouth Daily. 30 tablet 5 5 Active Active Problems Problem Noted Date Diagnosed Date Primary osteoarthritis involving multiple joints 09/23/2024 Assessment & Plan (09/23/2024 12:09 PM EDT): Tylenol PRN is ok as directed He takes pregabalin for neuropathic pain He has tried muscle relaxer's like tizanidine He avoids/limits oral NSAIDS Due to history of heart disease. He has done some physical therapy Current use of steroid medication 03/24/2024 Assessment & Plan (09/23/2024 12:09 PM EDT): * Prednisone 5 mg/day for RA * 1st prescribed 03/26/23 Ideally he will taper off as his condition improves/stabilizes Assessment & Plan (03/24/2024 11:37 AM EDT): * Prednisone 5 mg/day for RA * 1st prescribed 03/26/23 Ideally he will taper off as his condition improves/stabilizes High risk medication use 03/24/2024 Assessment & Plan (09/23/2024 12:09 PM EDT): * Lyrica 100 mg PO BID for foot numbness/neuropathic pain * Controlled substance agreement updated 03/24/24 Check ROSALIA and Drug screen as required. Drug screen ordered today Assessment & Plan (03/24/2024 11:37 AM EDT): * Lyrica 100 mg PO BID for foot numbness/neuropathic pain * Controlled substance agreement updated 03/24/24 Check ROSALIA and Drug screen as required. Drug screen ordered today Seropositive rheumatoid arthritis 11/13/2023 Assessment & Plan (09/23/2024 12:09 PM EDT): * Medications/treatments/interventions tried include: Prednisone, tizanidine, Tylenol, he avoids NSAIDS Due to history of coronary artery disease, Arava, he has done physical therapy, Enbrel * 01/09/2019: RF 44.0 (<13.9), LEIDA negative, CCP > 250 (0-19), ESR 12 (0-30), CRP 13 (<10), Glucose was 131, Calcium was 10.3, CMP ok otherwise * 01/15/2019: CCP+, IgA RF +, IgM RF+ 1. On 06/07/22 the gis mapping technician called and notified us that we needed to hold/stop Enbrel and Leflunomide due to neutropenia which we did. 03/14/23 hematology notes recommended we try treating his RA with methotrexate/folic acid and prednisone. On 03/26/23 we added methotrexate, folic acid, and prednisone 5 mg/day as recommended. 05/07/23 hematology note recommended we avoid using methotrexate due to persistent neutropenia. So as advised MTX was discontinued. He is not currently on DMARD or biologic therapy due to neutropenia/blood dyscrasias. 2. Continue/refill prednisone 5 mg/day 3. Follow up in 6 months 4. We gave him an educational handout on OA to take home and review 5. His prognosis seems guarded at this point. His treatment is limited by this unexplained neutropenia 6. Continue/refill pregabalin for paresthesias. Assessment & Plan (03/24/2024 11:45 AM EDT): * Medications/treatments/interventions tried include: Prednisone, tizanidine, Tylenol, he avoids NSAIDS Due to history of coronary artery disease, Arava, he has done physical therapy, Enbrel * 01/09/2019: RF 44.0 (<13.9), LEIDA negative, CCP > 250 (0-19), ESR 12 (0-30), CRP 13 (<10), Glucose was 131, Calcium was 10.3, CMP ok otherwise * 01/15/2019: CCP+, IgA RF +, IgM RF+ 1. On 06/07/22 the gis mapping technician called and notified us that we needed to hold/stop Enbrel and Leflunomide due to neutropenia which we did. 03/14/23 hematology notes recommended we try treating his RA with methotrexate/folic acid and prednisone. On 03/26/23 we added methotrexate, folic acid, and prednisone 5 mg/day as recommended. 05/07/23 hematology note recommended we avoid using methotrexate due to persistent neutropenia. So as advised MTX was discontinued. He is not currently on DMARD or biologic therapy due to neutropenia/blood dyscrasias. 2. Continue/refill prednisone 5 mg/day 3. Follow up in 6 months 4. We gave him an educational handout on RA to take home and review 5. His prognosis seems guarded at this point. His treatment is limited by this unexplained neutropenia 6. Continue/refill pregabalin for paresthesias. Immunizations Immunization Administration Dates Next Due COVID-19 (MODERNA) BIVALENT 12+YRS 04/26/2022 COVID-19 (UNSPECIFIED) 12/29/2021 Influenza, Unspecified 03/21/2020 Family History Medical History Relation Name Comments Other Father fathers history unknown Coronary artery disease Mother Hypertension Mother Other Mother HEART BYPASS Peripheral vascular disease Mother Diabetes Sister Relation Name Status Comments Father Mother Sister Social History Tobacco Use Types Packs/Day Years Used Date Smoking Tobacco: Former Cigarettes 1.5 25 1 [birth year]/14/1956 - 05/14/1982 Passive Smoke Exposure: Past Smokeless Tobacco: Never Tobacco Cessation:Counseling Given: Not Answered Alcohol Use Standard Drinks/Week Comments No 0 [...] Industry 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 Not on file Not on file Not on file Last Filed Vital Signs Vital Sign Reading Time Taken Comments Blood Pressure 130/80 09/23/2024 11:40 AM EDT Pulse 52 09/23/2024 11:40 AM EDT Temperature 36.2 C (97.2 F) 09/23/2024 11:40 AM EDT Respiratory Rate 18 05/07/2023 9:28 AM EST Oxygen Saturation 100% 12/17/2023 11:30 AM EDT Inhaled Oxygen Concentration - - Weight 82.1 kg (181 lb) 09/23/2024 11:40 AM EDT Height 185.4 cm (6' 1 ) 09/23/2024 11:40 AM EDT Body Mass Index 23.88 09/23/2024 11:40 AM EDT Plan of Treatment Upcoming Encounters Date Type Department Care Team (Late st Contact Info) Description 03/30/2025 11:15 AM EDT Office Visit [facility] RHEUMATOLOGY [address] [place] [address] Rogelio Martin DO 330 [facility] [address] [place], [place] [id number] Health Maintenance Due Date Last Done Comments TDAP/TD VACCINES (1 - Tdap) 1959 Pneumococcal Vaccine 50+ (1 of 1 - PCV) 1990 ZOSTER VACCINE (1 of 2) 1990 RSV Vaccine - Adults (1 - 1- dose 75+ series) 2015 ANNUAL WELLNESS VISIT 05/14/2019 COVID-19 Vaccine (2023-2 5 season) 2024 05/07/2024, 05/21/2023, 04/26/2022, Additional history exists INFLUENZA VACCINE 03/31/2025 04/30/2023, 03/21/2020 Insurance MEDICARE A & B [facility] SUP Care Teams Deckhand Tuna Boat Relationship Specialty Start Date End Date Josee Preciado APRN [address] [place] [address] PCP - General Internal Medicine 08/07/23
--- OUTSIDE RECORDS SUMMARY | 2025-02-22 11:42 | XMS_ITS | Encounter Summary ---
Author Organization [facility] Address [address] [place] [address] Care Team Providers Care Occupational Therapist Home Based Name Role Phone Josee Preciado ESTATE AGENT Primary Care Provider [phone] Reason for Visit * Reason Comments Med Refill Encounter Details Date Type Department Care Team (Late st Contact Info) Description 12/27/2023 Refill [facility] HEMATOLOGY & ONCOLOGY [address] [facility] [address] [place] [phone] Yenny Siddiqi MD [address] [facility] [address] [place] [address] Social History Tobacco Use Types Packs/Day Years [...] Industry Job 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 Date 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 Not on file Not on file Not on file documented as of this encounter Miscellaneous Notes * Telephone Encounter - Yenny Briseno MA - 12/27/2023 2:27 PM EDT UPCOMING APPTS With Oncology (Yenny Siddiqi MD) 03/18/2024 at 10:30 AM LAST OFFICE VISIT - THIS DEPT 12/17/2023 Yenny Siddiqi MD Last refill 12/11/2022 30 11 refills documented in this encounter Plan of Treatment Upcoming Encounters Date Type Department Care Team (Late st Contact Info) Description 03/30/2025 11:15 AM EDT Office Visit [facility] RHEUMATOLOGY [address] [phone] Rogelio Martni DO [address] [address] documented as of this encounter Visit Diagnoses Not on filedocumented in this encounter Care Teams Occupational Therapist Home Based Relationship Specialty Start Date End Date Josee Preciado APRN [address] [place] [address] PCP - General Internal Medicine 08/07/23 documented as of this encounter
--- OUTSIDE RECORDS SUMMARY | 2025-02-22 11:42 | XMS_ITS | Encounter Summary ---
Author Organization Healthcare Address [address] [place] [address] Care Team Providers Care Metal Base Blocker Name Role Phone Pancho Singh MD Primary Care Provider [phone] Encounter Details Date Type Department Care Team (Late st Contact Info) Description 02/15/2025 Telephone [facility] [address]th Floor [address] [place] [address] Fabián Salgado MD [address] [facility] [address] [place] [address] Social History Tobacco Use Types Packs/Day Years [...] place to sleep or slept in a mcfp (including now)? No 09/04/2023 AUDIT-C Answer Date [...] encounter Miscellaneous Notes * Telephone Encounter - Hillary Phillip - 02/15/2025 10:28 AM EDT Clinical Concern/Question Reason for Call: Pt called, asking for the orders for CT to be sent to [facility]. Fax #: [phone] Best contact number: [phone] (mobile) Optimal time of day to reach caller: ANYTIME Additional comments/information from caller: None Note: Please do not reply to this message. Follow-up communication and further actions as a result of this message need to be communicated with the patient directly, if the patient is not active onMyChart. If the patient is active on MyChart, they will receive notification of the communication/outcome via MyChart. documented in this encounter Plan of Treatment Upcoming Encounters Date Type Department Care Team (Late st Contact Info) Description 04/21/2025 11:00 AM EDT Office Visit [facility] Clinic [address] [facility] 5th Floor [address] [place] [address] Fabián Salgado MD [address] [facility] [address] [place] [address] documented as of this encounter Visit Diagnoses Not on filedocumented in this encounter Additional Health Concerns Assessment Noted Time A fall risk assessment has been complete d for the patient 02/10/2025 12:49 PM EDT A Body Mass Index follow-up plan has been documented for the patient 12/15/2024 11:26 AM EDT documented as of this encounter Care Teams Metal Base Blocker Relationship Specialty Start Date End Date Pancho Singh MD [address] [place] [address] PCP - General 11/11/20 documented as of this encounter
--- OUTSIDE RECORDS SUMMARY | 2025-02-22 11:42 | XMS_ITS | Encounter Summary ---
Author Organization Healthcare Address [address] [place] [address] Care Team Providers Care Aircraft Body Repairer Name Role Phone Pancho Singh MD Primary Care Provider [phone] Encounter Details Date Type Department Care Team (Late st Contact Info) Description 08/17/2024 Orders Only External Location [address] [place] [address] Provider, External Social History Tobacco Use Types [...] in a mcfp (including now)? No 09/04/2023 Utilities Answer Date [...] Description 04/21/2025 11:00 AM EDT Office Visit [place] [facility] [address] [facility] 5th Floor [address] [place] [address] Fabián Salgado MD [address] [facility] [address] [place] [address] documented as of this encounter Procedures Procedure Name Priority Date/Time Associated Diagnosis Comments US OUTSIDE IMAGES 08/17/2024 10:44 AM EST documented in this encounter Results * US OUTSIDE IMAGES (08/17/2024 10:44 AM EST) Anatomical Region Laterality Modality Ultrasound 08/17/2024 10:4 4 AM EST us External Provider IMG US PROCEDURES Final Result documented in this encounter Visit Diagnoses Not on filedocumented in this encounter Additional Health Concerns Assessment Noted Time A fall risk assessment has been complete d for the patient 10/16/2023 1:52 PM EDT A Body Mass Index follow-up plan has been documented for the patient 10/26/2023 11:34 AM EDT documented as of this encounter Care Teams Aircraft Body Repairer Relationship Specialty Start Date End Date Pancho Singh MD [address] [place] [address] PCP - General 11/11/20 documented as of this encounter
== END 2025-02-22 11:15 | disposition home or self-care (01) ==
LOC: INF 11:01
PROVIDERS: PCP Nurse Practitioner Family; Visit Provider Nurse Practitioner Family
DX: M81.0 Age-related osteoporosis without current pathological fracture (principal)
CPT/HCPCS: 96372; J0897

== ENCOUNTER 2025-02-25 10:15 | Outpatient (CLI) | payer MEDICARE, OTHER, SELFPAY ==
--- OUTSIDE RECORDS SUMMARY | 2025-02-10 13:00 | XMS_ITS | Encounter Summary ---
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) Procedures CT Angio Abdomen Pelvis w Runoff Fabián Salgado MD [address] [place] [phone] Phone: tel: fax: Referral ID Status Reason Start Date Expiration Date V isits Requested Visits Authorized [id number] Authorized 02/10/2025 08/12/2026 1 1 Reason for Visit * Reason Comments Critical Limb Ischemia Encounter Details Date Type Department Care Team (Latest Contact Info) Description 02/10/2025 1:00 PM EDT Office Visit [place] [facility] [address] [facility] 5th Floor [address], [address] [place] [address] Fabián Salgado MD [address] [place] [phone] Ischemic ulcer, limited to breakdown of [...] place to sleep or slept in a mcc (including now)? No 09/04/2023 AUDIT-C Answer Date [...] In the past 12 months has e [employer], gas, oil, or water [employer] threatened to shut off services in your [...] Zulema Rodgers documented as of this encounter Miscellaneous Notes * Progress Notes - Faibán Salgado MD - 02/10/2025 1:00 PM EDT Dear Pancho Singh MD, HPI One year history of left lateral foot ischemic pressure wound. Patient has kept the wound was getting worse and is in fact seen some healing over this period, but has not been able to heal fully. Patient has also developed a wound on the , medial border of the [id number] MTP Patient was referred to our clinic by Dr. Lacy cedillo, due to patient in and physician availability Dr. Abrams saw Mr. schmidt 1st, but now I am seeing him in clinic. Patient takes aspirin 81, and no other blood thinner. Vascular Surgery History: (Date - Procedure - Hospital - Doctor) CABG, no PCI, no peripheral stents I personally and independently reviewed and interpreted the Vascular Lab Images from today's visit which showed: Very poor ABIs, no toe pressure on the left. Angiogram 09/08/24 shows significant popliteal disease and proximal tibial disease. 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 Noninfected. Assessment/Plan In Summary: Nicko Schmidt is a 84 y.o. year old male who we saw today in clinic. 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 We will see him back for: Follow up in 1 month (on 03/13/2025). documented in this encounter Plan of Treatment Upcoming Encounters Date Type Department Care Team (Late st Contact Info) Description 04/21/2025 11:00 AM EDT Office Visit [facility] [address] [facility] 5th Floor [address] [place] [address] Fabián Salgado MD [address] [place] [address] Scheduled Orders Name Type Priority [...] plan has been documented for the patient 02/23/2025 6:50 AM EDT documented as of this encounter Care Teams Public Health Worker Relationship Specialty Start Date End Date Pancho Singh MD [address] [place] [address] PCP - General 11/11/20 documented as of this encounter
--- OUTSIDE RECORDS SUMMARY | 2025-02-25 10:24 | XMS_ITS | Encounter Summary ---
Author Organization Healthcare Address [address] [place] [address] Care Team Providers Care Nailhead Setter Name Role Phone Pancho Singh MD Primary Care Provider [phone] Encounter Details Date Type Department Care Team (Late st Contact Info) Description 08/17/2024 Orders Only External Location [address] [place] [address] Provider, External Social History Tobacco Use Types [...] place to sleep or slept in a jail (including now)? No 09/04/2023 Utilities Answer Date [...] Description 04/21/2025 11:00 AM EDT Office Visit [place] [facility] [address] [facility] 5th Floor [address] [place] [address] Fabián Salgado MD [address] [facility] [address] [place] [address] documented as of this encounter Procedures Procedure [...] documented as of this encounter Care Teams Nailhead Setter Relationship Specialty Start Date End Date Pancho Singh MD [address] [place] [address] PCP - General 11/11/20 documented as of this encounter
--- OUTSIDE RECORDS SUMMARY | 2025-02-25 10:24 | XMS_ITS | Encounter Summary ---
Author Organization [facility] Address [address] [place] [address] Care Team Providers Care Auto Electrician Name Role Phone Josee Preciado LINTER OPERATOR Primary Care Provider [phone] Reason for Visit * Reason Comments Med Refill Encounter Details Date Type Department Care Team (Late st Contact Info) Description 12/27/2023 Refill [facility] HEMATOLOGY & ONCOLOGY [address] [facility] [address] [place] [phone] Yenny Siddiqi MD [address] [facility] [address] [place] [address] Social History Tobacco Use Types Packs/Day Years [...] 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
--- OUTSIDE RECORDS SUMMARY | 2025-02-25 10:24 | XMS_ITS | Clinical Summary ---
Author Organization [facility] Address [address] [place] [address] Care Team Providers Care Adjunct Art History Instructor Name Role Phone Josee Preciado APRN Primary Care Provider [phone] Allergies No known active allergies Medications aspirin [...] +, IgM RF+ 1. On 06/07/22 the flag decorator called and notified us that we needed [...] +, IgM RF+ 1. 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
--- OUTSIDE RECORDS SUMMARY | 2025-02-25 10:24 | XMS_ITS | Encounter Summary ---
Author Organization Healthcare Address [address] [place] [address] Care Team Providers Care Cyanide Pot Tender Name Role Phone Pancho Singh MD Primary Care Provider [phone] Encounter Details Date Type Department Care Team (Late st Contact Info) Description 02/15/2025 Telephone [place] [facility] [address] 5th [address] [place] [address] Fabián Salgado MD [address] [facility] [address] [place] [address] Social History Tobacco Use Types [...] place to sleep or slept in a halfway (including now)? No 09/04/2023 AUDIT-C Answer Date [...] [facility] Fax #: [phone] Best contact number: [phone] (mobile) Optimal time of day to reach [...] Description 04/21/2025 11:00 AM EDT Office Visit [facility] [address] [facility] 5th Floor [address] [place] [address] Fabián Salgado MD [address] [facility] [address] [place] [address] documented as of this encounter Visit Diagnoses Not on filedocumented in this encounter Additional Health Concerns Assessment Noted Time A fall risk assessment has been complete d for the patient 02/10/2025 12:49 PM EDT A Body Mass Index follow-up plan has been documented for the patient 02/23/2025 6:50 AM EDT documented as of this encounter Care Teams Cyanide Pot Tender Relationship Specialty Start Date End Date Pancho Singh MD [address] [place] [address] PCP - General 11/11/20 documented as of this encounter
--- OUTSIDE RECORDS SUMMARY | 2025-02-25 10:24 | XMS_ITS | Encounter Summary ---
Author Organization Healthcare Address [address] [place] [address] Care Team Providers Care Oracle Forms Developer Name Role Phone Pancho Singh MD Primary Care Provider [phone] Encounter Details Date Type Department Care Team (Late st Contact Info) Description 08/06/2023 Orders Only External Location [address] [place] [address] Josee Preciado, FLARE MAN [address] [place] [address] Social History Tobacco Use Types Packs/Day Years [...] [place] [facility] [address] [facility] 5th Floor [address] [place] [address] Fabián Salgado MD [address] [facility] [address] [place] [address] documented as of this encounter Procedures Procedure Name Priority Date/Time Associated Diagnosis Comments XR OUTSIDE IMAGES 08/06/2023 3:13 PM EST documented in this encounter Results * XR OUTSIDE IMAGES (08/06/2023 3:13 PM EST) Anatomical Region Laterality Modality Radiographic [place] ging 08/06/2023 3:13 PM EST us Josee Preciado FLARE MAN IMG XR PROCEDURES Final Re sult documented in this encounter Visit Diagnoses Not on filedocumented in this encounter Care Teams Oracle Forms Developer Relationship Specialty Start Date End Date Pancho Singh MD [address] [place] [address] PCP - General 11/11/20 documented as of this encounter
--- OUTSIDE RECORDS SUMMARY | 2025-02-25 10:24 | XMS_ITS | Encounter Summary ---
Author Organization Healthcare Address [address] [place] [address] Care Team Providers Care Foundation Relations Director Name Role Phone Pancho Singh MD Primary Care Provider Encounter Details Date Type Department Care Team [...] the past 12 months has th e [employer], gas, oil, or water company threatened to [...] [place] [facility] [address] [facility] 5th Floor [address] [place] [address] Fabián Salgado MD [address] [facility] [address] [place] [address] documented as of this encounter Visit Diagnoses Not on filedocumented in this encounter Additional Health Concerns Assessment Noted Time A fall risk assessment has been complete d for the patient 02/10/2025 12:49 PM EDT A Body Mass Index follow-up plan has been documented for the patient 02/23/2025 6:50 AM EDT documented as of this encounter Care Teams Foundation Relations Director Relationship Specialty Start Date End Date Pancho Singh MD [address] [place] [address] PCP - General 11/11/20 documented as of this encounter
--- OUTSIDE RECORDS SUMMARY | 2025-02-25 10:24 | XMS_ITS | Encounter Summary ---
Author Organization Healthcare Address [address] [place] [address] Care Team Providers Care Fancy Wire Drawer Name Role Phone Pancho Singh MD Primary Care Provider [phone] Encounter Details Date Type Department Care Team (Late st Contact Info) Description 09/08/2024 Orders Only External Location [address] [place] [address] Provider, External Social History Tobacco Use Types [...] Description 04/21/2025 11:00 AM EDT Office Visit [place] [facility] [address] [facility] 5th Floor [address] [place] [address] Fabián Salgado MD [address] [facility] [address] [place] [address] documented as of this encounter Procedures Procedure [...] documented as of this encounter Care Teams Fancy Wire Drawer Relationship Specialty Start Date End Date Pancho Singh MD [address] [place] [address] PCP - General 11/11/20 documented as of this encounter
--- OUTSIDE RECORDS SUMMARY | 2025-02-25 10:24 | XMS_ITS | Encounter Summary ---
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 Not on file Not on file documented as of this encounter Plan of Treatment Upcoming Encounters Date Type Department Care Team (Late st Contact Info) Description 03/30/2025 11:15 AM EDT Office Visit [facility] RHEUMATOLOGY 330 [facility] [address] [place] [address] Rogelio Martin DO 330 [facility] [address] [place] [address] documented as of this encounter Visit Diagnoses Not on filedocumented in this encounter Care Teams Co Founder And Cto Relationship Specialty Start Date End Date Josee Preciado APRN [address] [place] [address] PCP - General Internal Medicine 08/07/23 documented as of this encounter
--- OUTSIDE RECORDS SUMMARY | 2025-02-25 10:24 | XMS_ITS | Clinical Summary ---
Author Organization [facility] Address [address] [place] [address] Care Team Providers Care Care Worker Name Role Phone Pancho Singh MD Primary Care Provider [phone] Allergies No known active allergies Medications bicalutamide [...] Type Department Care Team Description 02/15/2025 Telephone [facility] [address] [place] [phone] Fabián Salgado MD 02/10/2025 1:00 PM EDT Office Visit [facility] [address] [place] [address] [address], [address] [place] [phone] Fabián Salgado MD Ischemic ulcer, 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) 02/10/2025 Travel 12/21/2024 10:15 AM EDT Pre-Admission Testing [facility] Pre[facility]op [facility] [address] [place] [address], [address] [place] [phone] 12/21/2024 Travel 12/15/2024 11:00 AM EDT Office Visit [facility] [address] [place] [address] [address] [place] [phone] Ej Abrams MD Limb ischemia (Primary Dx) 12/15/2024 9:35 AM EDT - 12/15/2024 11:59 PM EDT Hospital Encounter [facility] [address] [place] [phone] 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 No 09/04/2023 AUDIT-C Answer Date [...] In the past 12 months has th [employer], gas, oil, or water company threatened to [...] Comprehensive [facility] Clinic [address] [facility] 5th Floor [address] [place] [address] Fabián Salgado MD [address] [facility] [address] [place] [address] Health Maintenance Due Date Last Done Comments [facility]-Depression Screening 1940 [facility]-Medicare Annual Wellness (AWV) 1940 [facility]-/Child/Adol SDOH Screenings 1940 [facility]- SDOH Screenings 1958 [facility]-Adult SDOH Screenings 1958 [facility]-DTaP,Tdap,and Td Vaccines (1 - Tdap) 1959 [facility]-Zoster Vaccines (1 of 2) 1959 [facility]-Pneumococcal Vaccine: 50+ Years (1 of 1 - PCV) 1990 [facility]-RSV Vaccine: 60+ Years or (1 - 1-dose 75+ series) 2015 [id number] Vaccine (8 - Pfizer risk season) 2024 [...] are demonstrated at the level of the CANDLE MAKING SUPERVISOR. Monophasic waveforms are demonstrated at the levels of the M[employer]ESS [employer] FOUNDATION [employer]WER and DPA. Segmental pressures are within normal limits with a MATTRESS [employer]ATION SEWER MEGAN of 0.92 (130 mmHg) and a DPA MEGAN of 1.34 (190 mmHg). However, MEGAN pressures may be unreliable due to history of medial calcinosis. Digit pressures are 44 mmHg. Left: Monophasic waveforms are demonstrated at the levels of the CANDLE MAKING SUPERVISOR, DPA and M[employer]ER. Segmental pressures are below normal limits with [...] are demonstrated at the level of the CANDLE MAKING SUPERVISOR.Monophasic waveforms are demonstrated at the levels of the M[employer]OUNDATION SEWER and DPA.Segmental pressures are within normal limits with a M[employer]ESS [employer]OUNDATION SEWER MEGAN of 0.92 (130mmHg) and a DPA MEGAN of 1.34 (190 mmHg). However, MEGAN pressures may beunreliable due to history of medial calcinosis. Digit pressures are 44mmHg. Left: Monophasic waveforms are demonstrated at the levels of the CANDLE MAKING SUPERVISOR, DPAand MATTRESS [employer] FOUNDATION SEWER. Segmental pressures are below normal limits with [...] ult from Last 3 [place] [address] HUMAN Advance Directives Documents on File Type Date Recorded Patient Account Associate Expl anation Power of Managed Care Specialist 09/07/2023 12:49 PM Advance Directives and Livin g Will 09/07/2023 12:48 PM Power of Managed Care Specialist 08/31/2023 4:31 PM Advance Directives and Livin [...] Patient has decision-making capacity? Yes Care Teams Care Worker Relationship Specialty Start Date End Date Pancho Singh MD [address] [place] [address] PCP - General 11/11/20
--- NOTE | 2025-02-25 10:53 | CT_ITS ---
FINAL REPORT TECHNIQUE: Post contrast axial imaging of the aorta and bilateral lower extremity was obtained and reviewed. This study was performed with techniques to keep radiation doses as low as reasonably achievable (ALARA). Individualized dose reduction techniques using automated exposure control or adjustment of mA and/or kV according to the patient's size were employed. 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 The MARILIN is patent. There are dense vascular calcifications of the abdominal aorta and iliac vessels. There appears to be high-grade stenosis at the origin of the left external iliac artery well-seen on image 122 of series 5. Right: Dense vascular calcifications in the common femoral artery with 50% stenosis. Scattered calcifications of the adductor canal. 70% stenosis of the distal SFA. Extensive vascular calcification of the popliteal artery measuring 70%. There is poor contrast delivery into the tibial vessels. Left: Dense vascular calcifications throughout the SFA, particularly at the adductor canal with 80% stenosis of the adductor canal and popliteal artery. There is 90% stenosis of the mid popliteal artery. Poor contrast delivery is seen below the level of the left popliteal artery. Review of the remaining abdomen and pelvis demonstrates scarring or atelectasis at the lung bases. The liver parenchyma is homogeneous. There are multiple gallstones in the gallbladder. The spleen, pancreas, adrenal glands, kidneys are unremarkable. There is no evidence of abdominal aortic aneurysm. The urinary bladder is normal in size and configuration. 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 Due to extensive calcifications, catheter directed angiography is recommended. No evidence of abdominal aortic aneurysm. Gallstones in the gallbladder. Reviewed, Interpreted and Dictated by Ulises Bush MD Transcribed by Yadira López Authenticated and [facility]
[2025-02-25 11:30] LABS: Blood Urea Nitrogen 15 mg/dl (9-20); Creatinine,Serum 1.00 mg/dl (0.66-1.25); Estimated Glomerular Filt Rate 71 ml/min (>60); GFR (African American) 86 ML/MIN (>60)
[2025-02-25] MEDS: 0.9 % SODIUM CHLORIDE 50 ML VIAL 100 ML IV (12:22)
[2025-02-25] MEDS: IOPAMIDOL-370 (76%);100ML BOTTLE 120 ML IV (12:22)
[2025-02-25] MEDS: SODIUM CHLORIDE 0.9% 10ML SYR (RAD ONLY) 10 ML IV (12:22)
== END 2025-02-25 23:59 | disposition home or self-care (01) ==
LOC: RAD 10:16
PROVIDERS: PCP Nurse Practitioner Family; Visit Provider Student in an Organized Health Care Education/Training Program
DX: I70.213 Atherosclerosis of native arteries of extremities with intermittent claudication, bilateral legs (principal); L98.491 Non-pressure chronic ulcer of skin of other sites limited to breakdown of skin; K80.20 Calculus of gallbladder without cholecystitis without obstruction
CPT/HCPCS: 36415; 75635; 82565; 84520; Q9967

== ENCOUNTER 2025-05-25 12:33 | Observation (INO) | payer MEDICARE, OTHER, SELFPAY ==
--- OUTSIDE RECORDS SUMMARY | 2025-03-25 08:13 | XMS_ITS | Encounter Summary ---
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) Limb ischemia Peripheral arterial disease Procedures VAS US Arterial Duplex Lower Extremity Unilateral Left Kana Maddox MD [address] [address] Phone: tel: fax: Referral ID Status Reason Start Date Expiration Date V isits Requested Visits Authorized [id number] Closed Perform Procedure 04/02/2025 10/02/2026 1 1 * Imaging (Routine) - Closed Specialty Diagnoses / Procedures Referred By Contac t Referred To Contact Cardiology Diagnoses Ischemic ulcer, 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) Limb ischemia Peripheral arterial disease Procedures VAS Ankle Brachial Index - Segmental Kana Maddox MD [address] [facility] [address] [place] [address] Phone: tel: fax: Referral ID Status Reason Start Date Expiration Date V isits Requested Visits Authorized [id number] Closed Perform Procedure 04/02/2025 10/02/2026 1 1 * Consultation (Routine) - Authorized Specialty Diagnoses / Procedures Referred By Contact Referred To Contact Vascular Surgery / [facility] Diagnoses Ischemic ulcer, 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) Limb ischemia Peripheral arterial disease Kana Maddox MD [address] [address] Phone: tel:[phone] fax:[phone] [facility] [address] [place] [address] [address]th Floor [address] [place] [address] Phone: tel: fax: Referral ID Status Reason Start Date Expiration Date Visits Requested Visits Authorized [id number] Authorized Specialty Services Required 04/02/2025 10/02/2026 1 1 Scheduling Instructions 4 weeks -- Tan -- ABIs & LLE duplex (s/p bypass) Reason for Visit * Auth/Cert (Routine) Specialty Diagnoses / Procedures Referred By Contac t Referred To Contact Diagnoses Ischemic ulcer, 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) Peripheral arterial disease Ischemic ulcer, 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) [L98.491] Peripheral arterial disease (CMS/HCC) [I73.9] Procedures AZ REVASCULARIZE ILIAC ARTERY,ANGIOPLASTY, INITIAL VESSEL [place] VEIN BYPASS GRAFT,FEM-TIBIAL Lower Extremity Angioplasty +/- Stent CREATION, BYPASS, ARTERIAL, FEMORAL TO POSTERIOR TIBIAL, PERONEAL, OR DORSALIS PEDIS Fabián Salgado MD [address] [address] Phone: tel: fax: [facility] [address] [place] [address] Phone: tel: Referral ID Status Reason Start Date Expiration Date Visits Re quested Visits Authorized [id number] 1 1 Encounter Details Date Type Department Care Team (Latest Contact Info) Description 03/25/2025 9:13 AM EDT - 04/02/2025 2:04 PM EDT Hospital Encounter [facility] Inpatient [address] [place] [address] Fabián Salgado MD [address] [facility] [address] [place] [address] Rolando Lynch MD [address] [facility] [address] [place] [address] Peripheral arterial disease (CMS/HCC) (Primary Dx); Postoperative hypotension; Ischemic ulcer, 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); Hypophosphatemia; Hypomagnesemia; History of prostate cancer; Coronary artery disease involving [place] si[place] heart without angina pectoris, unspecified vessel or lesion type; Electrolyte imbalance; Limb ischemia; Peripheral arterial disease (CMS/HCC) Discharge Disposition: [facility] Facility Social History Tobacco Use Types Packs/Day Years [...] afraid of your partner or ex-partner? No 03/26/2025 Within the last year, have y ou been humiliated or emotionally abused in other ways by your partner or ex-partner? No Within the last year, have y ou been kicked, hit, slapped, or otherwise physically hurt by your partner or ex-partner? No 03/26/2025 Within the last year, have y ou been raped or forced to have any kind of sexual activity by your partner or ex-partner? No 03/26/2025 AUDIT-C Answer Date Recorded Q1: How often do you have a drink containing alc ohol? 2-4 times a month 02/10/2025 Q2: How many drinks containi ng alcohol do you have on a typical day when you are drinking? 1 or 2 02/10/2025 Q3: How often do you have si x or more drinks on one occasion? Never 02/10/2025 Hunger Vital Sign Answer Date Recorded Within the past 12 months, y ou worried that your food would run out before you got the money to buy more. Never true 03/26/20 25 Within the past 12 months, t he food you bought just didn't last and you didn't have money to get more. Never true 03/26/2025 PRAPARE - Transportation Answer Date Re corded In the past 12 months, has l ack of transportation kept you from medical appointments or from getting medications? No 03/02 In the past 12 months, has l ack of transportation kept you from meetings, work, or from getting things needed for daily living? No 03/26/2025 Housing Stability Vital Sign Answer Phillip e Recorded In the last 12 months, was t here a time when you were not able to pay the mortgage or rent on time? No 03/26/2025 Number of Times Moved in the Last Year Not on fi le 03/26/2025 At any time in the past 12 m [facility], were you homeless or living in a intermediate (including now)? No 03/26/2025 [facility] Utilities Answer Date Recorded In the past 12 months has th e electric, gas, oil, or water company threatened to shut off services in your home? No 03/26/2025 Sex and Gender Information Value Date Recorded Sex Assigned at Not on file Legal Sex Male 7:34 PM EDT Gender Identity Not on file Sexual Orientation Not on file documented as of this encounter Last Filed Vital Signs Vital Sign Reading Time Taken Comments Blood Pressure 157/68 04/02/2025 1:15 PM EDT Pulse 89 04/02/2025 1:15 PM EDT Temperature 37 C (98.6 F) 04/02/2025 11:54 AM EDT Respiratory Rate 18 04/02/2025 11:54 AM EDT Oxygen Saturation 96% 04/02/2025 1:15 PM EDT Inhaled Oxygen Concentration - - Weight 80.8 kg (178 lb 2.1 oz) 03/29/2025 7:21 A M EDT Height 185.4 cm (6' 0.99 ) 03/29/2025 7:21 AM ED T Body Mass Index 23.51 03/29/2025 7:21 AM EDT documented in this encounter Functional Status * Calculated C-SSRS Risk Score (Lifetime/Recent) Answer Date of Assessment Author No Risk Indicated 04/02/2025 8:00 AM EDT Jovon Mendosa RN * Question Answer Date of Assessment Author 1. Wish to be (Past 1 Month) No 025 8:00 AM EDT Jovon Nicole RN 2. Non-Specific Active Suici peyton Thoughts (Past 1 Month) No 04/02/2025 8:00 AM EDT Feliciano Nicole RN 6. Suicidal Behavior (Lifetime) No 8:00 AM EDT Jovon Nicole RN documented as of this encounter Medications at Time of Discharge acetaminophen (Tylenol) 500 MG tablet Take 2 tablets by mouth every 8 hours as needed. apixaban (Eliquis) 5 MG tablet Take 1 tablet by mouth 2 times a day. 04/02/2025 bicalutamide (Casodex) 50 MG chemo tablet Take 1 tablet (50 mg total) by mouth every morning. 07/09/2023 bisoprolol (Zebeta) 5 MG tablet Take 1 tablet by mouth every morning. 08/06/2023 cadexomer iodine (Iodosorb) 0.9 % gel Apply topically daily. 04/02/2025 Calcium Carbonate-Vitami n D (calcium-vitamin D) 500-200 MG-UNIT tablet Take 1 tablet by mouth daily. 04/03/2025 CALCIUM CITRATE PO Take 200 mg by mouth every morning. celecoxib (CeleBREX) 100 MG capsule Take 1 capsule (100 mg) by mouth 2 (two) times a day. 09/05/2023 cholecalciferol (Vitamin D-3) 50 MCG (2000 UT) capsule Take 1 capsule by mouth every morning. clopidogrel (Plavix) 75 MG tablet Take 1 tablet by mouth daily. 04/03/2025 cyanocobalamin (Vitamin B-12) 1000 MCG tablet Take 1 tablet by mouth 1 time each day with lunch. 04/02/2025 denosumab (Prolia) 60 MG/ML injection Inject 1 mL under the skin every 6 months. docusate sodium 100 MG capsule Take 100 mg by mouth 2 times a day. 04/02/2025 ferrous sulfate 325 (65 Fe) MG tablet Take 1 tablet by mouth daily with breakfast. 08/07/2023 furosemide (Lasix) 20 MG tablet Take 1 tablet by mouth every morning. 08/21/2023 leuprolide acetate, 6 Month, (Eligard) 45 MG injection Inject under the skin every 6 (six) months. melatonin tablet Take 2 tablets by mouth at night as needed for sleep. 04/02/2025 oxybutynin XL (Ditropan-XL) 10 MG 24 hr tablet Take 1 tablet by mouth every morning. phosphorus (K Phos Neutral) tablet Take 1 tablet by mouth daily. 04/03/2025 predniSONE (Deltasone) 5 MG tablet Take 1 tablet by mouth every morning. 08/12/2023 pregabalin (Lyrica) 100 MG capsule Take 1 capsule by mouth 2 times a day. 08/12/2023 documented as of this encounter Miscellaneous Notes * Query Clarification Note - Fabián Salgado MD - 04/02/2025 2:04 PM EDT Physician Clarification Please review the following and provide your response below. Current documentation includes a diagnosis of Postoperative hypotension on 03/30/25 to 04/02/25. Please clarify which of the following best represents the etiology of the above symptoms and treatment rendered: []- Shock following surgery -Indicate type ([x]hypovolemic, []hemorrhagic, []distributive, etc.) -Indicate if []caused by/due to the procedure or []another cause []- Shock, other type (indicate distributive, vasoplegic circulatory, etc.) []- Hypotension without shock []- Other (please specify) Use of terms such as suspected, likely, concern for, or probable (associated with a specific diagnosis that is being evaluated, monitored, or treated as if it exists) are acceptable and can be coded in the inpatient setting, when documented at the time of discharge. This documentation will become part of the patient's medical record. * Discharge Summary - Roselyn Contreras APRN - 04/02/2025 11:07 AM EDT Images from the original note were not included. Vascular Surgery Progress Note Hospitalization Admit Date/Time: 03/25/2025 9:13 AM Admitting Attending: Fabián Salgado Discharge Date: 04/02/2025 Discharge Attending Physician: Belem Cota PCP name and Address: Josee Preciado, FILTRATION OPERATOR [address] / [place] [address] Referring provider name and address: No referring provider defined for this encounter. Chief Concern, Brief History of Present Illness, and Hospital Course Nicko Baumann is a 84 y.o. male who presented to [facility] on 03/25/2025 for planned procedure to address PAD. Patient was seen in office by Dr. Salgado on 03/17 with wounds to the left foot. ABIs from November demonstrated hemodynamically significant aterial inflow disease on the left, 0.32/0.49 PT/DP. Right demonstrated medial calcinosis with pressure of 0.92/1.4 CTA demonstrated largely left popliteal/tibial disease. Other than his wounds patient denied any significant pain in his bilateral lower extremities. After a comprehensive discussion along with risks and benefits, patient wished to proceed with surgical intervention and presented as planned for the followin03/25/2025 Procedure(s) (Dr. Roshan Salgado): Ultrasound-guided access of the right common femoral artery Left lower extremity angiography with radiologic supervision and interpretation Selective catheterization of the left tibioperoneal trunk 3rd order Percutaneous transluminal balloon angioplasty of the left femoral popliteal segment Unfortunately this procedure was unsuccessful and patient proceeded to OR again for the followin03/29/2025 Procedure(s) (Dr. Roberta Manriquezein: Left lower extremity angiography with interpretation Left common femoral thromboendarterectomy with vein patch Left profunda femoral thromboendarterectomy with vein patch Left common femoral to posterior tibial artery bypass with PTFE and vein cuff of distal anastomosis The procedure was tolerated well with no intraoperative complications. The patient was successfullyextubated post-operatively without re-intubation. Hospital course was complicated by hypotension requiring pressor support and minimal fluid resuscitation given patient's history of heart failure. On day of discharge (04/02/2025), patient was evaluated by the Vascular Surgery team. Vital signsand laboratory values were stable and appropriate. Patient was voiding independently via external male catheter, ambulating with assistance, tolerating regular diet, and reporting adequate pain control. The patient's last bowel movement was on 04/01. Discharge instructions were given to patient receiving facility regarding medications, activity/ lifting restrictions, wound care, diet, and when to seek emergent care. Follow up appointments for vascular clinic and appropriate imaging was scheduled. Vascular Surgery History Right LEXI s/p R CEA Left LEXI Past Medical History RA CAD s/p CABG Prostate cancer Patient will need to follow up with outpatient urologist for resumption of prostate cancer medications. Surgeries and Procedures Procedures performed in this encounter Procedures Case Request Operating Room: Left lower extremity femoral to distal arterial bypass, femoral endarterectomy Critical Care Critical Care Left lower extremity femoral to distal arterial bypass, femoral endarterectomy (Left) Medication List PAUSE taking these medications bicalutamide 50 MG chemo tablet Wait to take this until your doctor or other care provider tells you to start again. Commonly known as: Casodex Take 1 tablet (50 mg total) by mouth every morning. celecoxib 100 MG capsule Wait to take this until your doctor or other care provider tells you to start again. Commonly known as: CeleBREX Take 1 capsule (100 mg) by mouth 2 (two) times a day. denosumab 60 MG/ML injection Wait to take this until your doctor or other care provider tells you to start again. Commonly known as: Prolia Inject 1 mL under the skin every 6 months. furosemide 20 MG tablet Wait to take this until your doctor or other care provider tells you to start again. Commonly known as: Lasix Take 1 tablet by mouth every morning. .. acetaminophen 500 MG tablet Commonly known as: Tylenol Take 2 tablets by mouth every 8 hours as needed. apixaban 5 MG tablet Commonly known as: Eliquis Take 1 tablet by mouth 2 times a day. bisoprolol 5 MG tablet Commonly known as: Zebeta Take 1 tablet by mouth every morning. cadexomer iodine 0.9 % gel Commonly known as: Iodosorb Apply topically daily. CALCIUM CITRATE PO Take 200 mg by mouth every morning. calcium-vitamin D 500-200 MG-UNIT tablet Take 1 tablet by mouth daily. Start taking on: April 03, 2025 cholecalciferol 50 MCG (2000 UT) capsule Commonly known as: Vitamin D-3 Take 1 capsule by mouth every morning. clopidogrel 75 MG tablet Commonly known as: Plavix Take 1 tablet by mouth daily. Start taking on: April 03, 2025 cyanocobalamin 1000 MCG tablet Commonly known as: Vitamin B-12 Take 1 tablet by mouth 1 time each day with lunch. DSS 100 MG capsule Take 100 mg by mouth 2 times a day. ferrous sulfate 325 (65 Fe) MG tablet Take 1 tablet by mouth daily with breakfast. leuprolide acetate (6 Month) 45 MG injection Commonly known as: Eligard Inject under the skin every 6 (six) months. melatonin tablet Take 2 tablets by mouth at night as needed for sleep. oxybutynin XL 10 MG 24 hr tablet Commonly known as: Ditropan-XL Take 1 tablet by mouth every morning. phosphorus tablet Commonly known as: K Phos Neutral Take 1 tablet by mouth daily. Start taking on: April 03, 2025 predniSONE 5 MG tablet Commonly known as: Deltasone Take 1 tablet by mouth every morning. pregabalin 100 MG capsule Commonly known as: Lyrica Take 1 capsule by mouth 2 times a day. Where to Get Your Medications Information about where to get these medications is not yet available Ask your nurse or doctor about these medications apixaban 5 MG tablet cadexomer iodine 0.9 % gel calcium-vitamin D 500-200 MG-UNIT tablet clopidogrel 75 MG tablet cyanocobalamin 1000 MCG tablet DSS 100 MG capsule melatonin tablet phosphorus tablet Discharge Diagnosis Medical Problems Active and Resolved Hospital Problems Hospital Ischemic ulcer, 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) History of prostate cancer Postoperative hypotension Hypophosphatemia Hypomagnesemia Electrolyte imbalance * (Principal) Peripheral arterial disease Post Discharge Instructions -Difficulty breathing, headache or visual disturbances: Call 911 if you notice it's hard to breath causing dizziness, loss of consciousness, pale or blue changes to skin color, rapid or shallow breathing, chest pain or pressure. Call 911 if you notice a significantly painful headache, loss of vision, or visual disturbances. -Lifting: No heavy lifting, pushing, pulling, or straining. Do not lift anything heavier than a gallon of milk (<10 lbs for at least 2 weeks). -Wound care: Wash with soap and water daily, pat to dry. Tab/sutures will be removed at postoperative follow up in Vascular Clinic. DO NOT allow any other physician or office remove your tab/sutures. DO NOT apply any lotions, creams, ointments, or oils to incision site. Notify Vascular Surgery nurse navigator of any cloudy, green, yellow, red, brown, odorous drainage from incisional site. Notify Vascular Surgery nurse navigator of any redness, warmth, pain, or bleeding around incision. If incision begins to bleed uncontrollably, apply pressure and call 911. -Hygiene: PLEASE SHOWER DAILY TO PREVENT SURGICAL INFECTION. No tub baths, hot tubs, saunas, pools, lakes, streams, ponds. Do not submerge incisions/ wounds in water. -No strenuous activity You will receive a letter with your follow up appointment date/time in approximately 2 weeks if youdid not receive it at discharge. Please notify Vascular Surgery Nurse Navigator, Janak Putnam with any questions or concerns at [phone]. It is important that you get your scheduled imaging completed prior to your follow up appointment with your surgeon. We try our best to have your imaging and follow up appointment on the same day, it may not always be possible. Please bring your list of medications with you. Please bring your parking ticket in for validation. Outpatient Follow-Up No future appointments. Test Results Pending At Discharge Pending Labs Order Current Status Prepare Leukocyte Reduced RBC: 2 Units Preliminary result Pertinent Physical Exam At Time of Discharge Physical Exam Vitals reviewed. Constitutional: General: He is awake. He is not in acute distress. Appearance: Normal appearance. Interventions: Nasal cannula in place. HENT: Head: Normocephalic. Right Ear: Hearing normal. Left Ear: Hearing normal. Nose: Nose normal. Mouth/Throat: Lips: [place]. Mouth: Mucous membranes are moist. Eyes: Pupils: Pupils are equal, round, and reactive to light. Cardiovascular: Rate and Rhythm: Normal rate and regular rhythm. Comments: Left PT/AT signals detected with doppler Pulmonary: Effort: No respiratory distress. Breath sounds: Normal air entry. Abdominal: General: Abdomen is flat. Palpations: Abdomen is soft. Tenderness: There is no abdominal tenderness. Genitourinary: Comments: Skin: General: Skin is warm and dry. Capillary Refill: Capillary refill takes more than 3 seconds. Coloration: Skin is pale. Comments: Left anterior foot wounds healing well; open to air Left femoral incision: open to air, without dehiscence or drainage Left lower extremity GSV harvest incision: open to air, clean and dry, absent of hematoma or overt bleeding,no s/s of infection, absent of dehiscence. Neurological: Mental Status: He is alert. GCS: GCS eye subscore is 4. GCS verbal subscore is 5. GCS motor subscore is 6. Motor: Weakness present. Psychiatric: Behavior: Behavior is cooperative. Discharge Disposition/Condition Disposition: Rehab facility (specify) Condition: Stable (s/sx potential problems absent or manageable) I spent >30 minutes of patient care and instruction time in preparation for this discharge. Roselyn Contreras APRN Vascular Surgery Electronically Signed by: Roselyn Contreras APRN - 04/02/2025 - 11:18 AM Cosigned by Kathryn Cota MD at 04/06/2025 8:40 AM EDT Associated attestation - Kathryn Cota MD - 04/06/2025 8:40 AM EDT I attest to being involved in providing substantive part of the medical decision making in patient care. and I spent >30 minutes of patient care and instruction time in preparation for this discharge. * Progress Notes - Therese Pinto - 04/02/2025 9:06 AM EDT Case Management Discharge Note Nicko Baumann 84 y.o. male CSN: [id number] Admission: 03/25/2025 9:13 AM Primary Problem: Peripheral arterial disease Primary Tree Chipper: Primary Caregiver: Self Assistance Available at Discharge: Current Outpatient/Agency/Support Group: DME Availability of Care Givers (#Hours): 24 hours Housing Circumstances-Z Codes: Housing Circumstances (select all that apply): None Applicable Patient Referred to Financial or Community Resources: N/A Discharge Facility/Level of Care Needs: Discharge Facility/Level of Care Needs: [facility]hab facilty ([place]) Patient's Choice of Community Agency(s): N/A Patient/Family Anticipated Services at Transition: Patient/Family Anticipated Services at Transition: none DME/Equipment Needed after Discharge: Equipment Currently Used at Home: walker, rollator Readmission Within the Last 30 Days: Readmission Within the Last 30 Days: no previous admission in last 30 days Medicare Documentation: Medicare Second Notice?: Yes Date Second Notice Completed: 04/01/25 Time Second Notice Completed: 1430 Medicare Second Notice Recieved By: pt Follow-up: No follow-up provider specified. Discharge Transportation: Transportation Anticipated: family or friend will provide Transportation Home at Discharge: Family/Friend will Provide What day is the transport expected?: 04/02/25 What time is the transport expected?: 1300 Follow Up Transport: Transportation Needed to Follow up Appoinments: Family/Friend will Provide, Self Additional Comments: Report [phone] Caro Pinto VICE PRESIDENT OF INSTRUCTION * Care Plan - Jovon Nicole RN - 04/02/2025 8:21 AM EDT Problem: Adult Inpatient Plan of Care Goal: Plan of Care Review Outcome: Ongoing, Progressing Flowsheets (Taken 04/02/2025 0820) Progress: improving Plan of Care Reviewed With: patient Goal: Patient-Specific Goal (Individualized) Outcome: Ongoing, Progressing Flowsheets (Taken 04/02/2025 0800) Patient/Family-Specific Goals (Include Timeframe): patient will be free of falls throughout the shift Individualized Care Needs: go to the progressive floor Anxieties, Fears or Concerns: none verbalized Goal: Absence of Hospital-Acquired Illness or Injury Outcome: Ongoing, Progressing Intervention: Identify and Manage Fall Risk Flowsheets (Taken 04/02/2025 0400 by Rolando Montero) Safety Promotion/Fall Prevention: activity supervised Intervention: Prevent Skin Injury Flowsheets Taken 04/02/2025 0800 by Jovon Nicole RN Body Position: turned Taken 03/30/2025 1600 by Mariana Cool RN Skin Protection: incontinence pads utilized silicone foam dressing in place skin sealant/moisture barrier applied Intervention: Prevent and Manage VTE (Venous Thromboembolism) Risk Flowsheets (Taken 04/02/2025 0800) VTE Prevention/Management: medication Intervention: Prevent Infection Flowsheets (Taken 03/30/2025 1200 by Mariana Cool RN) Infection Prevention: cohorting utilized hand hygiene promoted Goal: Optimal Comfort and Wellbeing Outcome: Ongoing, Progressing Intervention: Monitor Pain and Promote Comfort Flowsheets (Taken 03/30/2025 1200 by Mariana Cool RN) Pain Management Interventions: breathing exercises position adjusted Intervention: Provide Person-Centered Care Flowsheets (Taken 03/30/2025 1200 by Mariana Cool RN) Trust Relationship/Rapport: care explained emotional support provided questions encouraged questions answered Problem: Skin Injury Risk Increased Goal: Skin Health and Integrity Outcome: Ongoing, Progressing Intervention: Optimize Skin Protection Flowsheets Taken 04/02/2025 0400 by Rolando Montero Activity Management: activity adjusted per tolerance Taken 04/01/2025 1600 by Aruna Kennedy RN Head of Bed (HOB) Positioning: HOB elevated Taken 03/30/2025 1600 by Mariana Cool RN Skin Protection: incontinence pads utilized silicone foam dressing in place skin sealant/moisture barrier applied Taken 03/30/2025 1200 by Mariana Cool RN Pressure Reduction Techniques: frequent weight shift encouraged heels elevated off bed Pressure Reduction Devices: (sacrum buttocks) heel offloading device utilized foam padding utilized Intervention: Promote and Optimize Oral Intake Flowsheets (Taken 03/30/2025 1200 by Mariana Cool RN) Oral Nutrition Promotion: rest periods promoted Nutrition Interventions: diet adjusted Problem: Mobility Impairment Goal: Optimal Mobility Outcome: Ongoing, Progressing Intervention: Optimize Mobility Flowsheets Taken 04/02/2025 0400 by Rolando Montero Activity Management: activity adjusted per tolerance Taken 03/30/2025 1200 by Mariana Cool RN Positioning/Transfer Devices: pillows Taken 03/28/20251999 by Kvng Penny RN Assistive Device Utilized: front wheel walker Problem: Fluid Volume Deficit Goal: Fluid Balance Outcome: Ongoing, Progressing Intervention: Monitor and Manage Hypovolemia Flowsheets (Taken 03/30/2025 1200 by Mariana Cool RN) Fluid/Electrolyte Management: intravenous fluid replacement initiated Problem: Lower Extremity Revascularization Goal: Absence of Bleeding Outcome: Ongoing, Progressing Goal: Effective Bowel Elimination Outcome: Ongoing, Progressing Intervention: Enhance Bowel Motility and Elimination Flowsheets (Taken 03/30/2025 1200 by Mariana Cool RN) Bowel Elimination Management: relaxation techniques promoted Bowel Motility Enhancement: oral intake encouraged Goal: Absence of Infection Signs and Symptoms Outcome: Ongoing, Progressing Intervention: Prevent or Manage Infection Flowsheets (Taken 03/30/2025 1200 by Mariana Cool RN) Fever Reduction/Comfort Measures: lightweight clothing lightweight bedding Goal: Effective Urinary Elimination Outcome: Ongoing, Progressing Intervention: Monitor and Manage Urinary Retention Flowsheets (Taken 03/30/2025 1200 by Mariana Cool RN) Urinary Elimination Promotion: catheter patency maintained Goal: Effective Oxygenation and Ventilation Outcome: Ongoing, Progressing Intervention: Optimize Oxygenation and Ventilation Flowsheets Taken 04/01/2025 1600 by Aruna Kennedy RN Head of Bed (HOB) Positioning: HOB elevated Taken 03/30/2025 1200 by Mariana Cool RN Airway/Ventilation Management: airway patency maintained oxygen therapy provided Goal: Effective Tissue Perfusion Outcome: Ongoing, Progressing Intervention: Optimize Tissue Perfusion Flowsheets Taken 04/02/2025 0800 by Jovon Nicole RN Body Position: turned Taken 03/30/2025 1200 by Mariana Cool RN Pressure Reduction Devices: (sacrum buttocks) heel offloading device utilized foam padding utilized Problem: Fall Injury Risk Goal: Absence of Fall and Fall-Related Injury Outcome: Ongoing, Progressing Intervention: Identify and Manage Contributors Flowsheets (Taken 03/30/2025 1200 by Mariana Cool RN) Medication Review/Management: medications reviewed Self-Care Promotion: independence encouraged Intervention: Promote Injury-Free Environment Flowsheets (Taken 04/02/2025 0400 by Rolando Montero) Safety Promotion/Fall Prevention: activity supervised Problem: Infection Goal: Absence of Infection Signs and Symptoms Outcome: Ongoing, Progressing Intervention: Prevent or Manage Infection Flowsheets Taken 04/01/2025 1600 by Aruna Kennedy RN Isolation Precautions: protective Taken 03/30/2025 1200 by Mariana Cool RN Infection Management: aseptic technique maintained Fever Reduction/Comfort Measures: lightweight clothing lightweight bedding Problem: Wound Goal: Improved Oral Intake Outcome: Ongoing, Progressing Intervention: Promote and Optimize Oral Intake Flowsheets (Taken 03/30/2025 1200 by Mariana Cool RN) Oral Nutrition Promotion: rest periods promoted Nutrition Interventions: diet adjusted * Consults - Alexandrea Dailey RD - 04/02/2025 8:11 AM EDT Adult Nutrition Evaluation Note Nicko Baumann 84 y.o. male CSN: [id number] Room/Bed 136/136A Nutrition evaluation type: assessment [facility] evaluation[facility] Hospital course: 84 yo M admitted with PAD, LLE ischemic ulcer / wound. OR on 03/25 for angioplasty of L femoral popliteal. OR on 03/29 for LLE femoral to distal arterial bypass, femoral endarterectomy. On NC and PO diet. Planned for discharge today Past medical/ surgical history: RA, CAD s/p CABG, right LEXI s/p R CEA, left LEXI, prostate cancer who presents with wounds to his left foot Social history: Additional comments: Vitals and Basic Assessment: BP: 121/83 Temp: 37.3 ??C (99.1 ??F) Oxygen Therapy: Supplemental oxygen O2 Delivery Method: Nasal cannula Stacy Coma Scale Score: 14 Jacob Scale Score: 16 Devang/Cubbin Pressure Risk Score: 40 Most Recent BM Date: 04/01/25 GI Symptoms: None Edema: Left lower extremity, Generalized Allergies: NKFA Medications: Current Scheduled Medications[1] Labs: Lab Results Component Value Date GLUCOSE 128 (H) 04/02/2025 BUN 11 04/02/2025 CREATININE 0.68 (L) 04/02/2025 BCR 16 04/02/2025 NA 141 04/02/2025 K 3.7 04/02/2025 CL 108 (H) 04/02/2025 CO2 22 04/02/2025 ALBUMIN 2.7 (L) 04/02/2025 ALKPHOS 53 04/02/2025 BILITOT 0.5 04/02/2025 Lab Results Component Value Date HGBA1C 5.8 (H) 03/26/2025 Anthropometrics: Height: 185.4 cm (6' 0.99 ) Weight: 80.8 kg (178 lb 2.1 oz) BMI (Calculated): 23.51 Weight Evaluation: Normal (BMI 18.5-24.9) [place] Body Weight (kg): 83.63 Percent [place] Body Weight: 96 Estimated Needs: Metabolic Cart Study Results: Current Nutrition Intake: Diet Supplements: Impact AR Diet Order: Adult Diet Diet Texture: Regular Percent Meals Eaten (%): not recorded well, 100% of 1 meal recorded over 7 days of admission Diet Experience and Nutrition History: Diet Education Provided: Will monitor Pertinent home medications: Scientologist needs: Nutrition Focused Physical Exam: Physical exam performed on (date): Assessment of Malnutrition: Nutrition Problem: Increased nutrient needs kcal, protein related to post op, wound healing as evidenced by increased demand for healing. Status of Nutrition Diagnosis: New Nutrition Interventions and Recommendations: Continue current diet order, record intake Ordered 1 packet Srinath BID Start daily multivitamin Nutrition Monitoring and Goals: PO intake >50% meals Acuity Level: [address] [1] acetaminophen, 1,000 mg, Oral, q8h apixaban, 5 mg, Oral, BID bisoprolol, 5 mg, Oral, Daily cadexomer iodine, , Topical, Daily calcium-vitamin D, 1 tablet, Oral, Daily clopidogrel, 75 mg, Oral, Daily cyanocobalamin, 1,000 mcg, Oral, Daily with lunch docusate sodium, 100 mg, Oral, BID ferrous sulfate, 324 mg, Oral, Daily with breakfast mupirocin, 1 Application, Each Nostril, BID oxybutynin XL, 10 mg, Oral, Daily phosphorus, 250 mg, Oral, Daily predniSONE, 5 mg, Oral, Daily pregabalin, 100 mg, Oral, BID senna, 2 tablet, Oral, Nightly * Progress Notes - Therese Pinto - 04/01/2025 11:21 AM EDT Case Management Adult Progress Note Nicko Baumann 84 y.o. male CSN: [id number] Admission: 03/25/2025 9:13 AM Primary Problem: Peripheral arterial disease Patient is medically ready for discharge. [facility] recs, patient's spouse only agreeable to [facility] at this time. Referral sent. SW will continue to follow. 1:40p [facility] can accept patient tomorrow 04/02. Ambulance pending. 2p Ambulance at 1pm 04/02 Report [phone] Caro Pinto VICE PRESIDENT OF INSTRUCTION * Progress Notes - Roselyn Contreras Jessa, FILTRATION OPERATOR - 04/01/2025 9:08 AM EDT Images from the original note were not included. Vascular Surgery Progress Note History of Present Illness: 84 y.o. male who presented to [facility] on 03/25/2025 for planned procedure to address PAD. Patient was seen in office by Dr. Salgado on 03/17 with wounds to the left foot. ABIs from November demonstrated hemodynamically significant aterial inflow disease on the left, 0.32/0.49 PT/DP. Right demonstrated medial calcinosis with pressure of 0.92/1.4 CTA demonstrated largely left popliteal/tibial disease. Other than his wounds patient denied any significant pain in his bilateral lower extremities. After a comprehensive discussion along with risks and benefits, patient wished to proceed with surgical intervention and presented as planned for the followin03/25/2025 Procedure(s) (Dr. Roshan Salgado): Ultrasound-guided access of the right common femoral artery Left lower extremity angiography with radiologic supervision and interpretation Selective catheterization of the left tibioperoneal trunk 3rd order Percutaneous transluminal balloon angioplasty of the left femoral popliteal segment Unfortunately this procedure was unsuccessful and patient proceeded to OR again for the followin03/29/2025 Procedure(s) (Dr. Roberta Maddox): Left lower extremity angiography with interpretation Left common femoral thromboendarterectomy with vein patch Left profunda femoral thromboendarterectomy with vein patch Left common femoral to posterior tibial artery bypass with PTFE and vein cuff of distal anastomosis Subjective POD #3 from last listed procedure. No acute events overnight. Patient seen on morning rounds, resting in bed with family at bedside. Patient hemodynamically stable overnight; responded to 250 mL bolus (x2) and did not require pressor support. Arterial line and left femoral Prevena remain in place. LLE well perfused with PT/AT signal detected with doppler. AM labs reviewed and noted with stable anemia (H/H 9.3/27.2), hypokalemia (K 3.5), and hypomagnesemia (Mg 1.1). Review of Systems Constitutional: Negative for chills and fever. Respiratory: Negative. Cardiovascular: Negative. Gastrointestinal: Negative. Objective Vitals Heart Rate: [67-103] 100 Resp: [14-24] 16 BP: (90-173)/(26-53) 173/53 Arterial Line BP: (90-151)/(32-58) 151/58 Physical Exam Vitals reviewed. Constitutional: General: He is awake. He is not in acute distress. Appearance: Normal appearance. Interventions: Nasal cannula in place. HENT: Head: Normocephalic. Right Ear: Hearing normal. Left Ear: Hearing normal. Nose: Nose normal. Mouth/Throat: Lips: [place]. Mouth: Mucous membranes are moist. Eyes: Pupils: Pupils are equal, round, and reactive to light. Cardiovascular: Rate and Rhythm: Normal rate and regular rhythm. Comments: Left PT/AT signals detected with doppler Pulmonary: Effort: No respiratory distress. Breath sounds: Normal air entry. Abdominal: General: Abdomen is flat. Palpations: Abdomen is soft. Tenderness: There is no abdominal tenderness. Genitourinary: Comments: Skin: General: Skin is warm and dry. Capillary Refill: Capillary refill takes more than 3 seconds. Coloration: Skin is pale. Comments: Left anterior foot wounds healing well; open to air Left groin prevena wound vac: in place and holding suction Left lower extremity GSV harvest incision: open to air, clean and dry, absent of hematoma or overt bleeding,no s/s of infection, absent of dehiscence. Neurological: Mental Status: He is alert. GCS: GCS eye subscore is 4. GCS verbal subscore is 5. GCS motor subscore is 6. Motor: Weakness present. Psychiatric: Behavior: Behavior is cooperative. Assessment & Plan Peripheral arterial disease Ischemic ulcer, 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) History of prostate cancer Postoperative hypotension Electrolyte imbalance Summary of Plan for Today: - Downgrade to progressive level of care - Continue Plavix/Eliquis - Left femoral prevena down 04/03 - Left anterior foot wounds (x2): betadine to wounds, keep dry, wrap with kerlix; dressing change per nursing daily - PT/OT -- subacute rehab recs - OOB to chair/ambulate with nursing - Replete electrolytes per protocol - 1400 RFP + Mg - IS Q1 hour while awake - Gentle compression to LLE & elevate The plan of care was decided upon after a Vascular team discussion with attending Dr. Cota's collaboration and agreement. Patient was seen on morning Vascular Surgery rounds and multiple times throughout the day. Please notify the on-call resident or FILTRATION OPERATOR with any questions or concerns. Notify Roselyn Contreras, Vascular Surgery FILTRATION OPERATOR for any questions or concerns via secure chat, office ([phone]), pager [phone]. Please page for any emergent concerns or issues needing addressed within 30 minutes. Time Spent: I personally spent a total of 30 minutes on this encounter. This time includes face to face with patient, counseling and discussion and/or coordination of care with all involved healthcare providers. This time includes medical chart review of past records and pertinent imaging. Roselyn Contreras APRN Vascular Surgery Electronically Signed by: Roselyn Contreras APRN - 04/01/2025 - 9:28 AM * Care Plan - Winston Rolando - 04/01/2025 5:54 AM EDT Problem: Adult Inpatient Plan of Care Goal: Plan of Care Review Outcome: Ongoing, Progressing Flowsheets (Taken 03/30/2025 1721 by Mariana Cool RN) Progress: improving Plan of Care Reviewed With: patient family Goal: Patient-Specific Goal (Individualized) Outcome: Ongoing, Progressing Goal: Absence of Hospital-Acquired Illness or Injury Outcome: Ongoing, Progressing Goal: Optimal Comfort and Wellbeing Outcome: Ongoing, Progressing Problem: Skin Injury Risk Increased Goal: Skin Health and Integrity Outcome: Ongoing, Progressing Problem: Mobility Impairment Goal: Optimal Mobility Outcome: Ongoing, Progressing Problem: Fluid Volume Deficit Goal: Fluid Balance Outcome: Ongoing, Progressing Problem: Lower Extremity Revascularization Goal: Absence of Bleeding Outcome: Ongoing, Progressing Goal: Effective Bowel Elimination Outcome: Ongoing, Progressing Goal: Absence of Infection Signs and Symptoms Outcome: Ongoing, Progressing Goal: Effective Urinary Elimination Outcome: Ongoing, Progressing Goal: Effective Oxygenation and Ventilation Outcome: Ongoing, Progressing Goal: Effective Tissue Perfusion Outcome: Ongoing, Progressing Problem: Fall Injury Risk Goal: Absence of Fall and Fall-Related Injury Outcome: Ongoing, Progressing Problem: Infection Goal: Absence of Infection Signs and Symptoms Outcome: Ongoing, Progressing * Procedures - Fareed Diaz RN - 03/31/2025 8:41 PM EDTAssociated Order(s): Insert peripheral IV Insert peripheral IV Performed by: Fareed Diaz RN Authorized by: Rolando Lynch MD Hand hygiene: Hand hygiene performed prior to insertion Inserted using aseptic techniques: Yes Preparation: Skin prepped with chg Orientation: Left Location: Forearm Catheter placed: Peripheral IV Catheter size: 20g/2.00in Line Technique: Ultrasound Guidance Number of attempts: 1 IV flushes: Without difficulty and positive blood return noted and IV luer locked Patient tolerance: Patient tolerated the procedure well and there were no complications Patient comfort measures used: Distraction and position of comfort IV site covered with: Transparent semipermeable dressing * Hospital Course - Diane Roselynfarhan Germain APRN - 03/31/2025 2:29 PM EDT Nicko Baumann is a 84 y.o. male who presented to [facility] on 03/25/2025 for planned procedure to address PAD. Patient was seen in office by Dr. Salgado on 03/17 with wounds to the left foot. ABIs from November demonstrated hemodynamically significant aterial inflow disease on the left, 0.32/0.49 PT/DP. Right demonstrated medial calcinosis with pressure of 0.92/1.4 CTA demonstrated largely left popliteal/tibial disease. Other than his wounds patient denied any significant pain in his bilateral lower extremities. After a comprehensive discussion along with risks and benefits, patient wished to proceed with surgical intervention and presented as planned for the followin03/25/2025 Procedure(s) (Dr. Roshan Salgado): Ultrasound-guided access of the right common femoral artery Left lower extremity angiography with radiologic supervision and interpretation Selective catheterization of the left tibioperoneal trunk 3rd order Percutaneous transluminal balloon angioplasty of the left femoral popliteal segment Unfortunately this procedure was unsuccessful and patient proceeded to OR again for the followin03/29/2025 Procedure(s) (Dr. Roberta Manriquezein: Left lower extremity angiography with interpretation Left common femoral thromboendarterectomy with vein patch Left profunda femoral thromboendarterectomy with vein patch Left common femoral to posterior tibial artery bypass with PTFE and vein cuff of distal anastomosis The procedure was tolerated well with no intraoperative complications. The patient was successfullyextubated post-operatively without re-intubation. Hospital course was complicated by hypotension requiring pressor support and minimal fluid resuscitation given patient's history of heart failure. On day of discharge (04/02/2025), patient was evaluated by the Vascular Surgery team. Vital signsand laboratory values were stable and appropriate. Patient was voiding independently via external male catheter, ambulating with assistance, tolerating regular diet, and reporting adequate pain control. The patient's last bowel movement was on 04/01. Discharge instructions were given to patient receiving facility regarding medications, activity/ lifting restrictions, wound care, diet, and when to seek emergent care. Follow up appointments for vascular clinic and appropriate imaging was scheduled. Vascular Surgery History Right LEXI s/p R CEA Left LEXI Past Medical History RA CAD s/p CABG Prostate cancer * Care Plan - Tsering Marie RN - 03/31/2025 10:56 AM EDT Problem: Adult Inpatient Plan of Care Goal: Plan of Care Review Outcome: Ongoing, Progressing Flowsheets (Taken 03/30/2025 1721 by Mariana Cool, MERCEDES) Progress: improving Plan of Care Reviewed With: patient family Goal: Patient-Specific Goal (Individualized) Outcome: Ongoing, Progressing Flowsheets (Taken 03/31/2025 0800) Patient/Family-Specific Goals (Include Timeframe): Pt will have controlled pain during this shift. Individualized Care Needs: none Anxieties, Fears or Concerns: none Goal: Absence of Hospital-Acquired Illness or Injury Outcome: Ongoing, Progressing Intervention: Identify and Manage Fall Risk Flowsheets (Taken 03/31/2025 0800) Safety Promotion/Fall Prevention: activity supervised Intervention: Prevent Skin Injury Flowsheets Taken 03/31/2025 1000 by Tsering Marie RN Body Position: left turned heels elevated Taken 03/30/2025 1600 by Mariana Cool RN Skin Protection: incontinence pads utilized silicone foam dressing in place skin sealant/moisture barrier applied Intervention: Prevent and Manage VTE (Venous Thromboembolism) Risk Flowsheets (Taken 03/31/2025 0400 by Mayela Hazel) VTE Prevention/Management: medication Intervention: Prevent Infection Flowsheets (Taken 03/30/2025 1200 by Mariana Cool RN) Infection Prevention: cohorting utilized hand hygiene promoted Goal: Optimal Comfort and Wellbeing Outcome: Ongoing, Progressing Intervention: Monitor Pain and Promote Comfort Flowsheets (Taken 03/30/2025 1200 by Mariana Cool RN) Pain Management Interventions: breathing exercises position adjusted Intervention: Provide Person-Centered Care Flowsheets (Taken 03/30/2025 1200 by Mariana Cool RN) Trust Relationship/Rapport: care explained emotional support provided questions encouraged questions answered Problem: Skin Injury Risk Increased Goal: Skin Health and Integrity Outcome: Ongoing, Progressing Intervention: Optimize Skin Protection Flowsheets Taken 03/31/2025 1000 by Tsering Marie RN Activity Management: activity encouraged Head of Bed (HOB) Positioning: HOB at 30 degrees Taken 03/30/2025 1600 by Mariana Cool RN Skin Protection: incontinence pads utilized silicone foam dressing in place skin sealant/moisture barrier applied Taken 03/30/2025 1200 by Mariana Cool RN Pressure Reduction Techniques: frequent weight shift encouraged heels elevated off bed Pressure Reduction Devices: (sacrum buttocks) heel offloading device utilized foam padding utilized Intervention: Promote and Optimize Oral Intake Flowsheets (Taken 03/30/2025 1200 by Mariana Cool RN) Oral Nutrition Promotion: rest periods promoted Nutrition Interventions: diet adjusted Problem: Mobility Impairment Goal: Optimal Mobility Outcome: Ongoing, Progressing Intervention: Optimize Mobility Flowsheets Taken 03/31/2025 1000 by Tsering Marie RN Activity Management: activity encouraged Taken 03/30/2025 1200 by Mariana Cool RN Positioning/Transfer Devices: pillows Taken 03/28/20251999 by Kvng Penny RN Assistive Device Utilized: front wheel walker Problem: Fluid Volume Deficit Goal: Fluid Balance Outcome: Ongoing, Progressing Intervention: Monitor and Manage Hypovolemia Flowsheets (Taken 03/30/2025 1200 by Mariana Cool RN) Fluid/Electrolyte Management: intravenous fluid replacement initiated Problem: Lower Extremity Revascularization Goal: Absence of Bleeding Outcome: Ongoing, Progressing Goal: Effective Bowel Elimination Outcome: Ongoing, Progressing Intervention: Enhance Bowel Motility and Elimination Flowsheets (Taken 03/30/2025 1200 by Mariana Cool RN) Bowel Elimination Management: relaxation techniques promoted Bowel Motility Enhancement: oral intake encouraged Goal: Absence of Infection Signs and Symptoms Outcome: Ongoing, Progressing Intervention: Prevent or Manage Infection Flowsheets (Taken 03/30/2025 1200 by Mariana Cool RN) Infection Management: aseptic technique maintained Fever Reduction/Comfort Measures: lightweight clothing lightweight bedding Goal: Effective Urinary Elimination Outcome: Ongoing, Progressing Intervention: Monitor and Manage Urinary Retention Flowsheets (Taken 03/30/2025 1200 by Mariana Cool RN) Urinary Elimination Promotion: catheter patency maintained Goal: Effective Oxygenation and Ventilation Outcome: Ongoing, Progressing Intervention: Optimize Oxygenation and Ventilation Flowsheets Taken 03/31/2025 1000 by Tsering Marie RN Head of Bed (HOB) Positioning: HOB at 30 degrees Taken 03/30/2025 1200 by Mariana Cool RN Airway/Ventilation Management: airway patency maintained oxygen therapy provided Goal: Effective Tissue Perfusion Outcome: Ongoing, Progressing Intervention: Optimize Tissue Perfusion Flowsheets Taken 03/31/2025 1000 by Tsering Marie RN Body Position: left turned heels elevated Taken 03/30/2025 1200 by Mariana Cool RN Pressure Reduction Devices: (sacrum buttocks) heel offloading device utilized foam padding utilized Problem: Fall Injury Risk Goal: Absence of Fall and Fall-Related Injury Outcome: Ongoing, Progressing Intervention: Identify and Manage Contributors Flowsheets (Taken 03/30/2025 1200 by Mariana Cool, RN) Medication Review/Management: medications reviewed Self-Care Promotion: independence encouraged Intervention: Promote Injury-Free Environment Flowsheets (Taken 03/31/2025 0800) Safety Promotion/Fall Prevention: activity supervised Problem: Infection Goal: Absence of Infection Signs and Symptoms Outcome: Ongoing, Progressing * Progress Notes - Roselyn Contreras, FILTRATION OPERATOR - 03/31/2025 10:54 AM EDTAssociated Order(s): Critical Care Post-Procedure Diagnose(s): Electrolyte imbalance; Postoperative hypotension; Peripheral arterial disease; History of prostate cancer; Ischemic ulcer, 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); Coronaryartery disease involving [place] and [place] heart without angina pectoris, unspecified vessel or lesion type Images from the original note were not included. Vascular Surgery Progress Note History of Present Illness: 84 y.o. male who presented to [facility] on 03/25/2025 for planned procedure to address PAD. Patient was seen in office by Dr. Salgado on 03/17 with wounds to the left foot. ABIs from November demonstrated hemodynamically significant aterial inflow disease on the left, 0.32/0.49 PT/DP. Right demonstrated medial calcinosis with pressure of 0.92/1.4 CTA demonstrated largely left popliteal/tibial disease. Other than his wounds patient denied any significant pain in his bilateral lower extremities. After a comprehensive discussion along with risks and benefits, patient wished to proceed with surgical intervention and presented as planned for the followin03/25/2025 Procedure(s) (Dr. Roshan Salgado): Ultrasound-guided access of the right common femoral artery Left lower extremity angiography with radiologic supervision and interpretation Selective catheterization of the left tibioperoneal trunk 3rd order Percutaneous transluminal balloon angioplasty of the left femoral popliteal segment Unfortunately this procedure was unsuccessful and patient proceeded to OR again for the followin03/29/2025 Procedure(s) (Dr. Roberta Lakhani: Left lower extremity angiography with interpretation Left common femoral thromboendarterectomy with vein patch Left profunda femoral thromboendarterectomy with vein patch Left common femoral to posterior tibial artery bypass with PTFE and vein cuff of distal anastomosis Subjective POD #2 from last listed procedure. No acute events overnight. Patient seen on morning rounds, resting in bed. Patient with hypotension requiring Levophed at 0.03, on nasal cannula. He remains in ICU for hemodynamic monitoring and pressor support. Patient reports pain is well controlled with currentregimen. Left PT/AT signal detected with Doppler; left lower extremity well perfused. Arterial line and Blackwell catheter along with left femoral Prevena remain in place. A.m. labs reviewed and noted with stable postoperative acute blood loss anemia (H/H 9.9/29.1) and hypokalemia. Mortise plan was to discontinue arterial line and Blackwell catheter, however due to labile blood pressure we will continue arterial line for now and readdress tomorrow. Patient received total of 500 mL bolus with positive response. Review of Systems Constitutional: Negative for chills and fever. Respiratory: Negative. Cardiovascular: Negative. Gastrointestinal: Negative. Objective Vitals Temp: [37 ??C (98.6 ??F)-37.4 ??C (99.4 ??F)] 37.4 ??C (99.4 ??F) Heart Rate: [56-81] 78 Resp: [8-24] 24 BP: (76-140)/(24-65) 131/37 Arterial Line BP: (72-157)/(26-54) 139/46 Physical Exam Vitals reviewed. Constitutional: General: He is awake. He is not in acute distress. Appearance: Normal appearance. Interventions: Nasal cannula in place. HENT: Head: Normocephalic. Right Ear: Hearing normal. Left Ear: Hearing normal. Nose: Nose normal. Mouth/Throat: Lips: [place]. Mouth: Mucous membranes are moist. Eyes: Pupils: Pupils are equal, round, and reactive to light. Cardiovascular: Rate and Rhythm: Normal rate and regular rhythm. Comments: Left PT/AT signals detected with doppler Pulmonary: Effort: No respiratory distress. Breath sounds: Normal air entry. Abdominal: General: Abdomen is flat. Palpations: Abdomen is soft. Tenderness: There is no abdominal tenderness. Genitourinary: Comments: Skin: General: Skin is warm and dry. Capillary Refill: Capillary refill takes more than 3 seconds. Coloration: Skin is pale. Comments: Left anterior foot wounds healing well; open to air Left groin prevena wound vac: in place and holding suction Left lower extremity GSV harvest incision: open to air, clean and dry, absent of hematoma or overt bleeding,no s/s of infection, absent of dehiscence. Neurological: Mental Status: He is alert. GCS: GCS eye subscore is 4. GCS verbal subscore is 5. GCS motor subscore is 6. Motor: Weakness present. Psychiatric: Behavior: Behavior is cooperative. Assessment & Plan Peripheral arterial disease Ischemic ulcer, 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) History of prostate cancer Postoperative hypotension Electrolyte imbalance Summary of Plan for Today: - Continue ICU level of care - Wean levophed for SBP >90 - Continue Plavix; transition from heparin to Eliquis - 250 mL NS bolus - Left femoral prevena down 04/03 - Left anterior foot wounds (x2): betadine to wounds, keep dry, wrap with kerlix; dressing change per nursing daily - PT/OT - OOB to chair/ambulate with nursing - Replete electrolytes per protocol - IS Q1 hour while awake The plan of care was decided upon after a Vascular team discussion with attending Dr. Cota's collaboration and agreement. Patient was seen on morning Vascular Surgery rounds and multiple times throughout the day. Please notify the on-call resident or FILTRATION OPERATOR with any questions or concerns. Notify Roselyn Contreras Vascular Surgery DAMIAN for any questions or concerns via secure chat, office ([phone]), pager [phone]. Please page for any emergent concerns or issues needing addressed within 30 minutes. Critical Care Performed by: Roselyn Contreras APRN Authorized by: Roselyn Contreras APRN Critical care provider statement: Critical care time (minutes): 65 Critical care time was exclusive of: Teaching time Critical care was time spent personally by me on the following activities: Discussions with consultants, evaluation of patient's response to treatment, examination of patient, ordering and performingtreatments and interventions, ordering and review of laboratory studies and review of old charts Roselyn Contreras APRN Vascular Surgery Electronically Signed by: Roselyn Contreras APRN - 03/31/2025 - 10:55 AM * Progress Notes - Jalyn Vidal W - 03/31/2025 9:59 AM EDT Occupational Therapy Evaluation Patient Name: Nicko Baumann Today's Date: 03/31/2025 Total Treatment Time: 38 minutes OT Discharge Recommendations: Subacute rehab Equipment Recommended: Defer to facility History Nicko Baumann is 84 y.o. male admitted 03/25/2025 for work-up of Peripheral arterial disease. Hospital Course 1. Peripheral arterial disease (CMS/HCC) 2. Postoperative hypotension 3. Ischemic ulcer, 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) 4. Hypophosphatemia 5. Hypomagnesemia 6. History of prostate cancer 7. Coronary artery disease involving [place] and sioux heart without angina pectoris, unspecified vessel or lesion type Procedures 03/29/2025 Procedure(s): Left lower extremity femoral to distal arterial bypass, femoral endarterectomy Past Medical History Patient has a past medical history of Coronary artery disease and Hypertension. Past Surgical History Patient has a past surgical history that includes Lumbar laminectomy (09/03/2023) and Coronary artery bypass graft (2004). Precautions Medical Precautions: Fall precautions Subjective Patient agreeable to OT initial evaluation/session. Participants in Care Family/Caregiver Present: No Gas Welding Equipment Mechanic: Not Applicable Presentation Oxygen Therapy: Supplemental oxygen O2 Delivery Method: Nasal cannula O2 Flow Rate (L/min): 2 L/min Lines and Tubes: Telemetry Arterial Line 03/29/25 Right Brachial (Active) Urethral Catheter Non-latex 16 Fr. (Active) Negative Pressure Wound Therapy Hip Left (Active) Peripheral IV 03/25/25 Posterior;Right Hand (Active) Peripheral IV 03/29/25 Left Hand (Active) Peripheral IV 03/29/25 Left Wrist (Active) Pre-Session: Side lying right, Head of bed elevated, Lines intact Pre-Session Comments: RN agreeable to initial evaluation. Post-Session: Side lying left, Head of bed elevated, Bed alarm (zone 2), Lines intact, Call light in reach, RN notified Post-Session Comments: Patient positioned for comfort/pressure relief with pillow supports and all needs in reach. Home Living/Set-Up Lives With: Spouse Home Type: House Home Adaptive Equipment: Cane, Rollator, Bedside commode, Wheelchair-manual Home Layout: One level (level entry) Bathroom: Tub/Shower: Tub/Shower Combo, Shower chair Bathroom: Toilet: Standard Home Living Comments: Patient presented as a questionable historian secondary to impaired cognition. No family present at time of initial evaluation. Per VICE PRESIDENT OF INSTRUCTION (Therese Pinto) note, patient requires MINassist at baseline for overall functional status. Prior Level of Function Receives Help From: Spouse Level of Mobility: Ambulatory- household only Mobility Burnett: Independent gait with device (cane) History of Falls: No ADL Performance: Needs assistance Bathing: Needs assist Upper Body Dressing: Needs assist Lower Body Dressing: Needs assist Grooming: Independent Toileting: Independent Eating: Needs assist Home Management Skills: Needs assist Patient/Family Goals Patient presented with impaired cognition. No goals stated at this time. No family present. Objective Pain Patient reported pain at surgical site in left LE. No formal rating provided. RN aware. Patient positioned for comfort/pressure relief with pillow supports and all needs in reach at end of session. Delirium Screening RASS: Drowsy Confusion Assessment Method-ICU (CAM-ICU/PCAM-ICU) Feature 1: Acute Onset or Fluctuating Course: Positive Feature 2: Inattention: Negative Feature 3: Altered Level of Consciousness: Positive Feature 4: Disorganized Thinking: Positive Overall CAM-ICU/PCAM-ICU: Negative Cognition Overall Cognitive Status: Impaired Arousal/Alertness: Delayed responses to stimuli Mood/Behavior: Lethargic, Confused, Distractible Orientation Level: Oriented to person, Oriented to place, Disoriented to time, Disoriented to situation Orientation Level Comments: Patient required verbal and nonverbal cues for all orentation questioning. Patient oriented to name/ and place with choices provided. Disoriented to current time and situtation. Therapist provided re- orientation accordingly with no carryover noted at this time. Single Step Commands: 75% of the time, With increased time, With repetition Multi-Step Commands: 25% of the time, With increased time, With repetition Method of Communication: Verbal (Patient appears to be hard of hearing) Safety Judgment: Decreased awareness of need for assistance Awareness of Errors: Assistance required to identify errors made, Assistance required to correct errors made, Decreased awareness of errors Deficit Awareness: Decreased awareness of deficits Attention Span: Attends with cues to redirect, Difficulty attending to directions, Impaired sustained attention Problem Solving: Assistance required to identify errors made, Assistance required to generate solutions, Assistance required to implement solutions Perseveration: Not present Vision - Assessment Baseline Vision: Glasses distance, Glasses reading Patient Visual Report: Patient reported no concerns regarding vision at this time. Visual Screen Results: Appears intact. Right Upper Extremity Examination RUE Assessment: Exceptions to WFL (Shoulder flexion to 90 degrees; distally AROM WFL) Manual Muscle Testing - RUE: (Grossly 3/5 distal to shoulder) Light Touch: Right Upper Extremity: Intact (per patient report) Left Upper Extremity Examination LUE Assessment: Exceptions to WFL (Shoulder flexion to 90 degrees; distally AROM WFL) Manual Muscle Testing - LUE: (Grossly 3/5 distal to shoulder) Light Touch: Left Upper Extremity: Intact (per patient report) Right Lower Extremity Examination RLE Assessment: (hip/knee 0-90 observed) Manual Muscle Testing - RLE: (knee at least 3/5 displayed) Light Touch: Right Lower Extremity: Intact Left Lower Extremity Examination LLE Assessment: (unable to fully assess due to increased pain in LLE) Manual Muscle Testing - LLE: (unable to fully assess due to increased pain with LLE) Light Touch: Left Lower Extremity: Intact Perception/Coordination Perception Initiation: Mild impairment Motor Planning: Mild impairment Coordination Movements are Fluid and Coordinated: Yes Fine Motor Coordination Examination Left Hand, Manipulation of Objects: Normal performance Right Hand, Manipulation of Objects: Normal performance Bed Mobility Bed Mobility Exam: Rolling/Turning Level of Burnett: Dependent (bilaterally) Physical/Nonphysical Assist: Set-up required, Verbal Cues, Nonverbal cues (demo/gestures), Maximal cues, Additional assist utilized for safety Assistive Device: Bed rails, Other (draw sheet) Bed Mobility Exam: Scooting/Bridging Level of Burnett: Dependent (anteriorly to EOB; to HOB) Physical/Nonphysical Assist: Set-up required, Verbal Cues, Nonverbal cues (demo/gestures), Maximal cues, Additional assist utilized for safety Assistive Device: Other (draw sheet) Bed Mobility Exam: Supine to Sit Level of Burnett: Dependent Physical/Nonphysical Assist: Set-up required, Verbal Cues, Nonverbal cues (demo/gestures), Maximal cues, HOB elevated, Additional assist utilized for safety Assistive Device: Other (draw sheet) Bed Mobility Exam: Sit to Supine Level of Burnett: Dependent Physical/Nonphysical Assist: Verbal Cues, Nonverbal cues (demo/gestures), Maximal cues, HOB elevated, Additional assist utilized for safety Assistive Device: Other (draw sheet) Transfers Transfer Interventions: NOT safe to attempt d/t BP being out of provided parameters per RN. RN reported that MAP goal was greater than 60 and SBP greater than 90 mmHg. Patient's SBP at EOB was 87 mmHg with a MAP of 56. Upon return to supine with bilateral LE elevated patient's SBP increased to 92 mmHg with a MAP of 56. RN aware and present throughout. TEAM aware. At end of session patient's BP was 105/39 (60). Balance Postural Appearance Posture: Forward head, Rounded shoulders, Weight shift posterior to midline Static Sitting Balance Static Sitting-Balance Support: Right upper extremity support, Left upper extremity support, Feet unsupported Static Sitting-Level of Assistance: Dependent (with brief period of MAX assist) Dynamic Sitting Balance Dynamic Sitting-Balance Support: Right upper extremity support, Left upper extremity support, Feet unsupported Level of Assistance: Dependent Self-Care Interventions Self Care/Home Management (ADLs) Time Entry: 23 Self_Care Interventions: In addition to OT initial evaluation (15 minutes), OT facilitated patient engagement in sequential task training emphasizing functional transitions required for increased performance in higher level BADLs/IADLs. Refer to the above sections for patient performance and levelsof assistance required for aspects of mobility completed on this date. Of note, increased time required for: appropriate room set-up via environmental modifications to optimize patient safety and accessibility to all areas of treatment spaces, skilled management of medical lines/tubes, vital monitoring, task modification/grading activity to provide functional challenge and promote success , provision of pacing/rest breaks, BADL retraining, cognitive retraining, verbal and tactile cues to facilitate sequencing and proper body mechanics during functional tasks, patient education, and staff education (RN/Tech/TEAM in regards to patient safety/vitals/mobility duringsession). Patient Education: To optimize patient safety while inpatient and at time of discharge, OT providedpatient education regarding: role of OT within POC, progression of therapy, discharge recommendations, precautions, BADL retraining, cognitive retraining, adaptive techniques, and fall prevention. Patient would continue to benefit from additional education to promote increased carryover of providedinformation. Refer to below sections for additional self-care interventions completed during session. Feeding Feeding Level of Assistance: Minimum assistance Feeding Interventions: Anticipated level of assistance/performance per clinical judgement when medically appropriate to optimize patient safety. Grooming Grooming Level of Assistance: Setup, Minimum assistance Grooming Where Assessed: Bed level (with HOB elevated) Grooming Interventions: Patient unable to tolerate simple grooming task in standing or unsupported sitting d/t increased fatigue, balance, strength, and cognition. OT provided task modification upon return to supine. After set-up assist, patient completed facial hygiene with MIN assist at bed levelwith HOB elevated. Bathing UE Bathing Level of Assistance: Maximum assistance LE Bathing Level of Assistance: Dependent Bathing Interventions: Anticipated level of assistance/performance per clinical judgement. UE Dressing UE Dressing Level of Assistance: Maximum assistance UE Dressing Where Assessed: Edge of bed UE Dressing Interventions: OT provided MAX assist to adjust gown in supported sitting position. Lower Extremity Dressing Sock Level of Assistance: Dependent LE Dressing Where Assessed: Bed level LE Dressing Interventions: OT provided DEP assist to andre bilateral socks. Toileting Toileting Level of Assistance: Dependent Toileting Interventions: Anticipated level of assistance/performance per clinical judgement. Patient is currently unsafe to engage in OOB mobility to faciliate bedside commode transfers or navigation< > bathroom for toileting needs d/t blood pressure outside of parameters, cognition, strength, and activity tolerance. OT anticipates that patient will require x2 skilled therapist/staff members or use of overhead lift to faciliate safe OOB transfers. Patient required DEP assist x2 for aspects of mobility and will likely require DEP assist x2 for a bed level toileting intervention when needed. Of note, patient with no bowel movement during evaluation and currently has urinary catheter present. Standardized Assessments [facility] 6-Click Daily Activities Help from Other: Don/Doff Regular Lower Body Clothings: Total Help From Other: Bathing: Total Help From Other: Toileting: Total Help From Other: Don/Doff Upper Body Clothings: Total Help From Other: Grooming: Little Help From Other: Eating Meals: Little [facility] 6 Click - Daily Activities Score: 10 [facility] Scoring Interpretation: Scores less than 15 suggest that patient requires increased levels ofassistance for most self-cares and strongly indicate the need for a post-acute care rehabilitation stay. Assessment Initial evaluation limited to sitting on EOB in supported sitting secondary to BP outside of parameters after transition to EOB. Session was not safe to progress with mobility beyond obtaining EOB d/t patient's SBP at EOB being 87 mmHg with a MAP of 56. Patient then returned to supine with bilateral LE elevated with SBP increasing to 92 mmHg with a MAP of 56. At end of session patient's BP was 105/39 (60). RN aware and present throughout. TEAM aware of BP. On this date, patient required grosslyDEP assist x2 for all aspects of mobility with increased time. Varied levels of assistance requiredfor presented self- cares; refer to self-care section for additional details. Patient presented with impaired occupational performances within completing BADL/IADL safely, functional transfers, functional mobility, balance, activity tolerance, strength, ROM, gross motor coordination, cognition, decreased safety awareness, motor planning/executive function, and self-limiting factors including pain and fatigue impacting their current level of performance and ability to engage in occupations with full independence. OT anticipates that patient will require increased levels of assistance for higher level BADLs/IADLs including: total body dressing, toileting, bathing/showering, meal preparation, household maintenance, community outings (such as obtaining groceries or attend ing appointments). Given patient's current mobility and BADL/IADL impairments, the patient would be unsafe to return home if they were to need to have quick access to exit routes within their home, to the bathroom if experiencing bowel/bladder urgency, and with other home safety scenarios. Patient is currently most appropriate for subacute rehabilitation and would continue to benefit from skilled OT services to promote increased independence within desired occupations, return to prior level of function, decrease caregiver stress, reduce risk of falls/potential readmission, and to promote a safe discharge when medically appropriate. OT Findings: Impaired ADL performance, Impaired IADL performance, Decreased upper extremity range of motion, Decreased upper extremity strength, Impaired judgment during ADL, Impaired cognition, Impaired attention, Decreased endurance/ventilation/gas exchange, Impaired executive function, Impaired f unctional mobility, Decreased gross motor control/coordination, Impaired postural/trunk control, Impaired balance, Impaired motor planning Evaluation/Treatment Tolerance: Patient limited by fatigue, Patient limited by pain (Patient limited by impaired cognition) Rehab Potential: Good, to achieve stated therapy goals Barriers to Discharge: Comorbidities Demonstrates Need for Referral to Another Service: Social work Eval Complexity Performance Deficits: Activities of daily living (ADLs), Instrumental activities of daily living (IADLs), Leisure, Social participation, Body functions, Body structures, Motor skills, Process skills,Social interaction skills, Habits, Routines, Roles, Personal, Physical, Social Clinical Decision Making: Moderate Overall Eval complexity: Moderate OT Recommendations Discharge Destination: Subacute rehab Discharge Equipment: Defer to facility Plan Continue with established OT plan of care 2-5/wk to progress towards OT POC goals. Planned OT Interventions ADL retraining, IADL retraining, Balance training, Bed mobility Training, Motor coordination training, Neuromuscular re-education, ROM, Strengthening, Stretching, Transfer training, Functional mobility, Cognitive retraining, Caregiver education OT Frequency 2 - 5 times per week OT Duration 2 weeks Goals OT GOAL DETAILS Time Frame OT Goal 1: Patient/Family/Caregiver will be independent in bilateral upper extremity home exercise program to promote increased strength/activity tolerance required for engagement in higher level self-cares/mobility. 2 weeks OT Goal 2: Patient will be alert and oriented x4 for 2/2 consecutive sessions. 2 weeks OT Goal 3: Patient will follow 100% of single-step for 2/2 consecutive sessions. 2 weeks OT Goal 4: Patient will complete 2-step grooming routine in supported sitting position with contact-guard assistance and AE as needed. OT Goal 5: Patient will complete total body dressing with minimum assistance and AE as needed. 2 weeks OT Goal 6: Patient will complete bed < > chair/bedside commode/wheelchair with minimum assistance and AE as needed to promote increased independence towards toileting routines. 2 weeks Written by Jalyn Vidal on 03/31/25 at 12:51 PM. * Progress Notes - Rigoberto Hardin - 03/31/2025 9:58 AM EDT PHYSICAL THERAPY EVALUATION Patient Name Nicko Baumann Session Date 03/31/2025 Total Treatment Time 38 min PT Discharge Recommendations Subacute rehab Equipment Recommendations Defer to facility HISTORY Nicko Baumann is 84 y.o. male admitted 03/25/2025 for work-up of Peripheral arterial disease. Hospital Course 1. Peripheral arterial disease (CMS/HCC) 2. Postoperative hypotension 3. Ischemic ulcer, 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) 4. Hypophosphatemia 5. Hypomagnesemia 6. History of prostate cancer 7. Coronary artery disease involving [place] and [place] heart without angina pectoris, unspecified vessel or lesion type Procedures (if applicable) 03/29/2025 Procedure(s): Left lower extremity femoral to distal arterial bypass, femoral endarterectomy Past Medical History Patient has a past medical history of Coronary artery disease and Hypertension. Past Surgical History Patient has a past surgical history that includes Lumbar laminectomy (09/03/2023) and Coronary artery bypass graft (2004). PRECAUTIONS Weight Bearing Precautions (if applicable) ROM Restrictions (if applicable) Medical Precautions Yes Medical Precautions: Fall precautions SUBJECTIVE PARTICIPANTS IN CARE Visitors Present No Subjective Report Pt has NOT been: * Ambulating hallway distances * Ambulating in-room distances * Transferring Bed <> Chair since being admitted to the hospital. Gas Welding Equipment Mechanic (if applicable) Not Applicable HOME LIVING/SET-UP Lives With Spouse Home Type House Home Equipment Cane, Rollator, Bedside commode, Wheelchair-manual Home Layout One level (no josr) Bathroom Layout Bathroom: Tub/Shower: Shower chair, Built-in shower seat Bathroom: Toilet: Standard Additional Comments questionable historian PRIOR LEVEL OF FUNCTION Assist at Home Spouse Level of Mobility Ambulatory- household only Mobility Burnett Independent gait with device (cane) History of Falls No Overall ADL Performance Needs assistance Additional ADL Performance Detail Bathing: Needs assist Upper Body Dressing: Needs assist Lower Body Dressing: Needs assist Grooming: Independent Toileting: Independent Eating: Needs assist Home Management Skills: Needs assist PATIENT/FAMILY GOALS OBJECTIVE / INTERVENTIONS PRESENTATION Oxygen Oxygen Therapy: Supplemental oxygen O2 Delivery Method: Nasal cannula O2 Flow Rate (L/min): 2 L/min Lines and Tubes telemetry Arterial Line 03/29/25 Right Brachial (Active) Urethral Catheter Non-latex 16 Fr. (Active) Negative Pressure Wound Therapy Hip Left (Active) Peripheral IV 03/25/25 Posterior;Right Hand (Active) Peripheral IV 03/29/25 Left Hand (Active) Peripheral IV 03/29/25 Left Wrist (Active) Pre-Session Side lying right, Head of bed elevated, Lines intact RN agreeable to initial evaluation. Post-Session Side lying left, Head of bed elevated, Bed alarm (zone 1, 2, 3), Lines intact, Call light in reach, RN notified Patient positioned for comfort/pressure relief with pillow supports and all needs in reach. Bracing (if applicable) PAIN Pain Intensity / Location Post-Mobility: patient displays significant pain response to any mobilityto LLE Prior to PT's departure: * rest was provided * pt was positioned for comfort * pillow support was provided * RN was informed of pt's pain DELIRIUM SCREENING RASS: Drowsy Confusion Assessment Method-ICU (CAM-ICU/PCAM-ICU) Feature 1: Acute Onset or Fluctuating Course: Positive Feature 2: Inattention: Negative Feature 3: Altered Level of Consciousness: Positive Feature 4: Disorganized Thinking: Positive Overall CAM-ICU/PCAM-ICU: Negative COGNITION Overall Cognitive Status Impaired Arousal/Alertness Delayed responses to stimuli Mood/Behavior Lethargic, Confused, Distractible Orientation Disoriented to place Patient required verbal and nonverbal cues for all orentation questioning. Patient oriented to name/ and place with choices provided. Disoriented to current time and situtation. Therapist provided re- orientation accordingly with no carryover noted at this time. Command Following Single Step Commands: 75% of the time, With increased time, With repetition Multi-Step Commands: 25% of the time, With increased time, With repetition Method of Communication Verbal (Patient appears to be hard of hearing) Additional Observations Safety Judgment: Decreased awareness of need for assistance Awareness of Errors: Assistance required to identify errors made, Assistance required to correct errors made, Decreased awareness of errors Deficit Awareness: Decreased awareness of deficits Attention Span: Attends with cues to redirect, Difficulty attending to directions, Impaired sustained attention Problem Solving: Assistance required to identify errors made, Assistance required to generate solutions, Assistance required to implement solutions Perseveration: Not present MOTOR EXAMINATION RANGE OF MOTION Right Upper Exceptions to WFL (Shoulder flexion to 90 degrees; distally AROM WFL) Left Upper Exceptions to WFL (Shoulder flexion to 90 degrees; distally AROM WFL) Right Lower (hip/knee 0-90 observed) Left Lower (unable to fully assess due to increased pain in LLE) MANUAL MUSCLE TESTING Right Upper (Grossly 3/5 distal to shoulder) Left Upper (Grossly 3/5 distal to shoulder) Right Lower (knee at least 3/5 displayed) Left Lower (unable to fully assess due to increased pain with LLE) MUSCLE TONE Right Upper WFL Left Upper WFL Right Lower WFL Left Lower WFL SENSORY EXAMINATION Light Touch Sensation Right Upper Intact (per patient report) Left Upper Intact (per patient report) Right Lower Intact Left Lower Intact Vital Signs Pre-Session During- and/or Post-Session Heart Rate (BPM) 72 72 O2 Saturation (%) >90 >90 Blood Pressure (mmHg) 92 / 33 (MAP 52) at end of session with RN present and aware; RN reported MD aware of BP Resp Rate (BPM) 24 THERAPEUTIC ACTIVITY Treatment Minutes 23 BED MOBILITY Level of [place] Physical/Non- physical Assist Adaptive Equipment Utilized Rolling/ Turning Dependent Verbal Cues, Nonverbal cues (demo/gestures), Maximal cues, Additional assist utilized for safety Bed rails, Other Scooting/ Bridging Dependent Verbal Cues, Nonverbal cues (demo/gestures), Maximal cues, Additional assist utilized for safety Other Supine to Sit Dependent Verbal Cues, Nonverbal cues (demo/gestures), Set-up required, Additional assist utilized for safety, Maximal cues Other Sit to Supine Dependent Verbal Cues, Nonverbal cues (demo/gestures), Additional assist utilized forsafety, Set-up required, Maximal cues Other Interventions PT cued for BLE sequencing toward edge of bed however patient displayed poor carryover of cues and was ultimately dependent to reach edge of bed. Increased time for skilled line management and monitoring of vitals throughout session. BALANCE Postural Appearance Posture: Forward head, Rounded shoulders, Weight shift posterior to midline, Weight shift right of midline Level of Burn[place] Balance Support Interventions Static Sit Dependent Right upper extremity support, Left upper extremity support, Feet unsupported PT cued for forward trunk flexion in order to engage core to decrease assistance required to maintain sitting edge of bed. PT cued for midline orientation in order to compensate for right posterolateral weight shifting. Dynamic Sit Dependent Right upper extremity support, Left upper extremity support, Feet unsupported STANDARDIZED ASSESSMENTS [facility] 6-Clicks Mobility Assessment Difficulty patient has turning over in bed (including adjusting bedclothes, sheets, and blankets)?:A lot Difficulty patient has sitting down on and standing up from a chair with arms (wheelchair, bedside commode, etc.)?: Unable Difficulty patient has moving from lying on back to sitting on the side of the bed?: Unable How much help does the patient need moving to and from a bed to a chair (including a wheelchair)?: Unable How much help does the patient need to walk in hospital room?: Unable How much help does the patient need climbing 3-5 steps with a railing?: Unable [facility] 6-Clicks Mobility Assessment Total : 7 ASSESSMENT PT FINDINGS Impairments (if identified) Decreased endurance, ventilation, and/or gas exchange, Impaired cognition/safety awareness, Impaired gait dynamics/performance, Impaired locomotion, Impaired balance, Impaired postural/trunk control, Pain, Decreased range of motion, Decreased strength, Impaired functional mobility/transfers Activity Limitations (if identified) Inability to sit independently, Inability to ambulate community distances, Inability to complete ADLs independently, Inability to transfer independently, Inability to ambulate household distances Participation Restrictions (if identified) Self-care, Home management, Community leisure Barriers to Discharge (if identified) PT Diagnosis Impaired Functional Mobility Additional Observations Activity Tolerance: Sitting Evaluation/Treatment Tolerance: Patient limited by pain, Treatment limited secondary to medical complications (Comment) Rehab Potential: Fair, will monitor progress closely EVAL COMPLEXITY History Profile 1 - 2 personal factors and/or comorbidities Clinical Presentation Evolving clinical presentation with changing characteristics Clinical Decision Making Moderate complexity PT RECOMMENDATIONS Discharge Destination Subacute rehab Discharge Equipment Defer to facility Additional Recommendations (if applicable) Patient may benefit from Subacute Rehab for the following reasons: Pt remains as a high fall risk and is unsafe for discharge to home Pt remains unable to ambulate and cannot currently ambulate about pt's home Pt would benefit from further instruction improving functional transfers and ambulation Pt would likely benefit more from Subacute Rehab than other rehab services due to pt's medical acuity, level of immobility, and need for improved safety prior to returning home. Pt would likely progress independence of functional mobility towards PLOF with therapy daily, whichis unable to be provided in the home health or acute care hospital settings. PLAN Planned PT Interventions Balance training, Bed mobility training, Gait training, Transfer training, Postural re-education, Strengthening, Functional Mobility, Neuromuscular re- education, Caregiver training PT Frequency 2 - 5 times per week PT Duration 2 weeks PT GOALS PT GOAL DETAILS Time Frame PT Goal 1: Patient will complete supine <> sit with Ashwini 2 weeks PT Goal 2: Patient will tolerate sitting edge of bed for >5 minutes with all vitals remaining stable 2 weeks PT Goal 3: Patient will complete STS and BTC transfers with MaxA and AAD 2 weeks PT Goal 4: Patient will be independent with understanding of PT discharge recommendations 2 weeks Written by Rigoberto Hardin on 03/31/25 at 12:48 PM. * Progress Notes - Justin Angelica Hi, FILTRATION OPERATOR, DNP - 03/30/2025 6:27 PM EDT Associated Order(s): Critical Care Post-Procedure Diagnose(s): Hypomagnesemia; Hypophosphatemia; Postoperative hypotension; Peripheralarterial disease; History of prostate cancer; Ischemic ulcer, 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); Coronary artery disease involving [place] heart without angina pectoris, unspecified vessel or lesion type Images from the original note were not included. Vascular Surgery History of Present Illness: 84 yo male with history of RA, CAD s/p CABG, right LEXI s/p R CEA, left LEXI, prostate cancer who presents to on 03/25/25 for planned surgery with Dr Salgado. Patient with wounds to his left foot. CTA with left popliteal/tibial disease. Went to OR for endo intervention, was unsuccessful. 03/29 surgical intervention planned (see below). 03/25/25: US guided R INSURANCE BILLING CLERK access, LLE angio, cath of L TP trunk, balloon angio of L femoral popliteal (Constantine) 03/29/25: left common femoral to posterior tibial bypass with PTFE, L INSURANCE BILLING CLERK endarterectomy with vein patch angioplasty, left profunda femoral thromboendarterectomy, left PT vein patch angioplasty (Tan) Subjective No acute events overnight. Vitals stable on nasal cannul, afebrile. Pateint in ICU related to low blood pressures in PACU last night that responded well to IV hydration. Patient seen on 6a rounds andno c/o pain, significantly drowsy. 1 hour after rounds, RN reports patient MAP sustaining 49-52 andcorrelating NIBP measurements. Ordered 500 ml fluid bolus and patient appropriately responded with improvement of SBP/ MAP x 2 hours. AM Labs reordered reviewed and demonstrate stable H/H, hypophosphatemia- ordered replacement, and hypomagnesemia- ordered replacement. Hypocalcemia also noted on ionized calcium and replaced per protocol. Later morning, RN reported low MAP. Patient asymptomatic. Ordered norepi gtt for MAP 60 (with respect to patient's baseline poor cardiac fx). Consulted med- oncology to review patient's home prostate cancer meds and determine when safe to resume postoperativley. Will hold these meds until discharge and he follows up with primary urologist. Review of Systems Objective Vitals Temp: [36.6 ??C (97.9 ??F)-38 ??C (100.4 ??F)] 37 ??C (98.6 ??F) Heart Rate: [55-93] 72 Resp: [8-23] 16 BP: (75-147)/(19-65) 101/65 Arterial Line BP: (76-151)/(32-62) 95/35 Physical Exam Vitals and nursing note reviewed. Constitutional: General: He is sleeping. He is not in acute distress. Appearance: Normal appearance. He is ill-appearing. Interventions: Nasal cannula in place. Comments: Appears chronically ill baseline HENT: Head: Normocephalic and atraumatic. Right Ear: External ear normal. Left Ear: External ear normal. Nose: Nose normal. Mouth/Throat: Lips: [place]. Mouth: Mucous membranes are moist. Eyes: General: Lids are normal. Neck: Trachea: No tracheal deviation. Cardiovascular: Rate and Rhythm: Normal rate and regular rhythm. Comments: Pulse exam: DP and strong PT on LLE, monophasic DP and PT on RLE Pulmonary: Effort: No respiratory distress. Breath sounds: Normal air entry. Abdominal: General: Abdomen is flat. Palpations: Abdomen is soft. Tenderness: There is no abdominal tenderness. Genitourinary: Comments: No overt external genitalia abnormalities upon visual exam of groin Skin: General: Skin is warm and dry. Capillary Refill: Capillary refill takes more than 3 seconds. Coloration: Skin is pale. Comments: Left anterior foot wounds healing well; open to air Left groin prevena wound vace: appropriate seal and intact dressing, surrounding tissue normal Left lower extremity GSV harvest incision: Incision open to air, clean and dry, no s/s hematoma or overt bleeding. No s/s of infection. No dehiscence. Neurological: Mental Status: He is lethargic. GCS: GCS eye subscore is 4. GCS verbal subscore is 5. GCS motor subscore is 6. Motor: Weakness present. Psychiatric: Behavior: Behavior is cooperative. Assessment & Plan Peripheral arterial disease Ischemic ulcer, 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) History of prostate cancer Postoperative hypotension Hypophosphatemia Hypomagnesemia TODAY'S PLAN - Continue ICU level of care for postop hypotension - Hypotensive, on levo for MAP 60. Don't fluid overload given significant cardiac history - ASA/heparin drip on 03/30, Plavix DOAC at DC - strong PT signal on L - Left groin prevena to be removed on 04/03 - LLE incision (GSV harvest) - Left anterior foot wounds (x 2): iodosorb gel (betadine) to wounds, keep dry, wrap with kerlex, change daily Critical Care Performed by: Angelica Anderson APRN, DNP Authorized by: Angelica Anderson APRN, DNP Critical care provider statement: Critical care time (minutes): 44 Critical care time was exclusive of: Separately billable procedures and treating other patients andteaching time Critical care was time spent personally by me on the following activities: Development of treatmentplan with patient or surrogate, discussions with consultants, evaluation of patient's response to treatment, examination of patient, obtaining history from patient or surrogate, ordering and review of laboratory studies and ordering and performing treatments and interventions Patient was seen on morning Vascular Surgery rounds and multiple times throughout the day. Please notify the on-call resident or FILTRATION OPERATOR with any questions or concerns. Notify Angelica Anderson Vascular Surgery FILTRATION OPERATOR for any questions or concerns via secure chat, office([phone]), pager [phone]. Please page for any emergent concerns or issues needing addressed within 30 minutes. Daily plan of care discussed and agreed upon in collaboration with the vascular surgery team and vascular surgery attending, Dr Cota. Electronically Signed by: Angelica Anderson APRN, DNP - 03/30/2025 - 6:51 PM * Care Plan - Mariana Cool RN - 03/30/2025 5:21 PM EDT Problem: Adult Inpatient Plan of Care Goal: Plan of Care Review 03/30/20251720 by Mariana Cool RN Outcome: Ongoing, Progressing Flowsheets (Taken 03/30/20251720) Progress: improving Plan of Care Reviewed With: patient family 03/30/20251720 by Mariana Cool RN Outcome: Ongoing, Progressing Goal: Patient-Specific Goal (Individualized) 03/30/2025 172 by Mariana Cool RN Outcome: Ongoing, Progressing Flowsheets (Taken 03/30/2025 1200) Patient/Family-Specific Goals (Include Timeframe): safety, Individualized Care Needs: hemodynamic stability, monitor dressings for bleeding Anxieties, Fears or Concerns: None stated 03/30/20251720 by Mariana Cool RN Outcome: Ongoing, Progressing Goal: Absence of Hospital-Acquired Illness or Injury 03/30/2025 172 by Mariana Cool RN Outcome: Ongoing, Progressing 03/30/20251720 by Mariana Cool RN Outcome: Ongoing, Progressing Intervention: Identify and Manage Fall Risk Flowsheets (Taken 03/30/2025 1200) Safety Promotion/Fall Prevention: fall prevention program maintained room organization consistent safety round/check completed Intervention: Prevent Skin Injury Flowsheets (Taken 03/30/2025 172) Body Position: neutral head position lower extremity elevated weight shifting Intervention: Prevent and Manage VTE (Venous Thromboembolism) Risk Flowsheets (Taken 03/30/2025 1200) VTE Prevention/Management: medication Intervention: Prevent Infection Flowsheets (Taken 03/30/2025 1200) Infection Prevention: cohorting utilized hand hygiene promoted Goal: Optimal Comfort and Wellbeing 03/30/20251720 by Mariana Cool RN Outcome: Ongoing, Progressing 03/30/20251720 by Mariana Cool RN Outcome: Ongoing, Progressing Intervention: Monitor Pain and Promote Comfort Flowsheets (Taken 03/30/2025 1200) Pain Management Interventions: breathing exercises position adjusted Intervention: Provide Person-Centered Care Flowsheets (Taken 03/30/2025 1200) Trust Relationship/Rapport: care explained emotional support provided questions encouraged questions answered Problem: Skin Injury Risk Increased Goal: Skin Health and Integrity 03/30/20251720 by Mariana Cool RN Outcome: Ongoing, Progressing 03/30/2025 172 by Mariana Cool RN Outcome: Ongoing, Progressing Intervention: Optimize Skin Protection Flowsheets Taken 03/30/2025 1600 Skin Protection: incontinence pads utilized silicone foam dressing in place skin sealant/moisture barrier applied Taken 03/30/2025 1200 Activity Management: activity encouraged Pressure Reduction Techniques: frequent weight shift encouraged heels elevated off bed Head of Bed (HOB) Positioning: HOB elevated Intervention: Promote and Optimize Oral Intake Flowsheets (Taken 03/30/2025 1200) Nutrition Interventions: diet adjusted Problem: Mobility Impairment Goal: Optimal Mobility 03/30/2025 1721 by Mariana Cool RN Outcome: Ongoing, Progressing 03/30/2025 172 by Mariana Cool RN Outcome: Ongoing, Progressing Intervention: Optimize Mobility Flowsheets (Taken 03/30/2025 1200) Activity Management: activity encouraged Positioning/Transfer Devices: pillows Problem: Fluid Volume Deficit Goal: Fluid Balance 03/30/2025 172 by Maraina Cool RN Outcome: Ongoing, Progressing 03/30/2025 172 by Mariana Cool RN Outcome: Ongoing, Progressing Intervention: Monitor and Manage Hypovolemia Flowsheets (Taken 03/30/20251199) Fluid/Electrolyte Management: intravenous fluid replacement initiated Problem: Lower Extremity Revascularization Goal: Absence of Bleeding 03/30/2025 172 by Mariana Cool RN Outcome: Ongoing, Progressing Note: Dressing monitored, anticoagulant titrated per lab results 03/30/2025 172 by Mariana Cool RN Outcome: Ongoing, Progressing Goal: Effective Bowel Elimination 03/30/2025 172 by Mariana Cool RN Outcome: Ongoing, Progressing 03/30/2025 172 by Mariana Cool RN Outcome: Ongoing, Progressing Intervention: Enhance Bowel Motility and Elimination Flowsheets (Taken 03/30/2025 1200) Bowel Elimination Management: relaxation techniques promoted Bowel Motility Enhancement: oral intake encouraged Goal: Absence of Infection Signs and Symptoms 03/30/2025 172 by Mariana Cool RN Outcome: Ongoing, Progressing 03/30/2025 172 by Mariana Cool RN Outcome: Ongoing, Progressing Intervention: Prevent or Manage Infection Flowsheets (Taken 03/30/2025 1200) Infection Management: aseptic technique maintained Fever Reduction/Comfort Measures: lightweight clothing lightweight bedding Goal: Effective Urinary Elimination 03/30/2025 172 by Mariana Cool RN Outcome: Ongoing, Progressing 03/30/2025 172 by Mariana Cool RN Outcome: Ongoing, Progressing Intervention: Monitor and Manage Urinary Retention Flowsheets (Taken 03/30/2025 1200) Urinary Elimination Promotion: catheter patency maintained Goal: Effective Oxygenation and Ventilation 03/30/2025 172 by Mariana Cool RN Outcome: Ongoing, Progressing 03/30/2025 172 by Mariana Cool RN Outcome: Ongoing, Progressing Intervention: Optimize Oxygenation and Ventilation Flowsheets (Taken 03/30/2025 1200) Airway/Ventilation Management: airway patency maintained oxygen therapy provided Head of Bed (HOB) Positioning: HOB elevated Goal: Effective Tissue Perfusion 03/30/2025 172 by Mariana Cool RN Outcome: Ongoing, Progressing 03/30/2025 172 by Mariana Cool RN Outcome: Ongoing, Progressing Intervention: Optimize Tissue Perfusion Flowsheets Taken 03/30/2025 172 Body Position: neutral head position lower extremity elevated weight shifting Taken 03/30/2025 1200 Pressure Reduction Devices: (sacrum buttocks) heel offloading device utilized foam padding utilized Problem: Fall Injury Risk Goal: Absence of Fall and Fall-Related Injury 03/30/2025 172 by Mariana Cool RN Outcome: Ongoing, Progressing 03/30/2025 172 by Mariana Cool RN Outcome: Ongoing, Progressing Intervention: Identify and Manage Contributors Flowsheets (Taken 03/30/2025 1200) Medication Review/Management: medications reviewed Self-Care Promotion: independence encouraged Intervention: Promote Injury-Free Environment Flowsheets (Taken 03/30/2025 1200) Safety Promotion/Fall Prevention: fall prevention program maintained room organization consistent safety round/check completed Problem: Infection Goal: Absence of Infection Signs and Symptoms 03/30/2025 172 by Mariana Cool RN Outcome: Ongoing, Progressing 03/30/2025 172 by Mariana Cool RN Outcome: Ongoing, Progressing Intervention: Prevent or Manage Infection Flowsheets (Taken 03/30/2025 1200) Fever Reduction/Comfort Measures: lightweight clothing lightweight bedding * Significant Event - Mustapha Hart MD - 03/30/2025 9:13 AM EDT Oncology care plan note: Reviewed chart of patient. Mr. Baumann is admitted to vascular surgery status post LLE angiography, left common fem thromboendarterectomy, profunda femoral endarterectomy, and common to posterior fem bypass. Oncology is asked about resuming his home bicalutamide. There are not many available records regarding his prostate cancer including no pathology records. Medication dispense reports note he has beenon bicalutamide for at least a year prescribed by his Urologist in [place]. Per report he is alsogetting Lupron injections every 6 months as well. I suspect based on his current treatment strategyhe has high risk localized disease and has not yet established with a medical oncologist, which maynot be indicated at this time. There is no urgency to resuming bicalutamide in the acute inpatient setting. Lupron is a long acting androgen deprivation therapy and should appropriately cover him during this time. If still desiredby his Urologist he can resume bicalutamide at discharge from his home supply. Mustapha Hart MD Fellow, Hematology and Oncology * Clinician Note - Uli De León MD - 03/29/2025 11:45 PM EDT VASCULAR SURGERY POST OP NOTE Surgery: Left lower extremity angiography with interpretation Left common femoral thromboendarterectomy with vein patch Left profunda femoral thromboendarterectomy with vein patch Left common femoral to posterior tibial artery bypass with PTFE and vein cuff of distal anastomosis Pulse Exam: LLE: Palpable PT/DP Incisions: L femoral incision covered with incisional wound vac Anticoagulation/ Antiplatelet Plan: Heparin gtt Mobility: Restricted Diet: NPO Labs: Anti Xa, APTT, CBC, PT-INR * Anesthesia PACU Signout - Bret Lehman CRNA - 03/29/2025 8:38 PM EDT Patient: Nicko Baumann Anesthesia Type: general Vitals Value Taken Time BP 145/58 03/29/25 20:30 Temp 36.9 ??C (98.4 ??F) 03/29/25 18:35 Pulse 62 03/29/25 20:37 Resp 14 03/29/25 20:37 SpO2 100 % 03/29/25 20:37 Vitals shown include unfiled device data. Anesthesia PACU Signout Patient location during evaluation: PACU Patient participation: complete - patient participated Level of consciousness: baseline and awake Pain management: adequate (pain score 0-3) Airway patency: natural airway Hydration status: acceptable PONV: none Cardiovascular status: acceptable and hemodynamically stable Respiratory status: acceptable, spontaneous ventilation, unassisted, nonlabored ventilation and nasal cannula Discharge Disposition: admit to inpatient unit * Op Note - Kana Maddox MD - 03/29/2025 2:25 PM EDT Operative Note Date: 03/29/25 Location: [facility] Name: Nicko Baumann, : 1940, Diagnoses: Pre-op Diagnosis Peripheral arterial disease Post-op Diagnosis Peripheral arterial disease Procedure(s): Left lower extremity angiography with interpretation Left common femoral thromboendarterectomy with vein patch Left profunda femoral thromboendarterectomy with vein patch Left common femoral to posterior tibial artery bypass with PTFE and vein cuff of distal anastomosis Attending Surgeon(s): * Kana Maddox - Primary Html Web Developer(s): * Koki Pruitt DO - Fellow Anesthesia: General ASA: IV Blood Administration: Blood Product Administration History None Estimated Blood Loss: 300 mL Drains: Urethral Catheter Non-latex 16 Fr. (Active) Implants Type Name Action Serial No. VASCUGUARD 8 X 8 - [id number] Implanted GRAFT PROPATEN RING W/HEP 6X80 - [id number] - [id number] Implanted [id number] Specimen: Findings: Left posterior tibial artery with appropriate outflow for distal target on angiography Calcified posterior plaque of left common femoral artery Calcified circumferential plaque of left profunda femoral artery Left femoral to posterior tibial artery bypass with vein cuff, with triphasic doppler signals in distal PT after completion. Indications: Nicko Baumann is an 84 y.o. male who is having surgery for Peripheral arterial disease. 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 An endovascular procedure was attempted but was unsuccessful in recanalizing his multilevel disease. We discussed that the next best option for limb preservation was an open bypass. Specific risks of the procedure discussed with patient included but were not limited to recurrence of disease, thromboembolism, access site bleeding, hematoma, pseudoaneurysm, emergency cutdown, worsening of ischemia, and need for ultimate amputation. Risks inherent in undergoing a major vascular operation discussed included but were not limited to: stroke, myocardial infarction, acute kidney injury, prolonged ventilation, prolonged ICU length of stray, tracheostomy, pneumonia, and the risk of . patient understood these issues and agreedto under the procedure. Narrative: The patient was brought to the operating room placed in supine position. After adequate anesthesia,the patient was prepped and draped in the standard sterile fashion. Before incision, a surgical time out confirming patient, location, laterality, and operation was performed. Incision was made with a 15 blade overlying the medial left middle leg. The posterior tibial artery was dissected free underneath the soleus muscle. It was circumferentially calcified. A butterfly needle was used to access the softest portion and an angiogram was performed that showed brisk outflow. A vertical incision was made over the left groin. Cautery and sharp dissection were used to dissectout the common femoral artery proximally under the inguinal ligament. Distally the superficial femoral artery was controlled with a vessel loop. The profunda was dissected free to its trifurcation and each branch controlled individually with vessel loops. The great saphenous vein was identified and harvested for a length of 10 cm. It was opened longitudinally to make a patch and kept in saline. A long tunneler was passed from the femoral incision subcutaneously to the medial leg incision and a 6 mm ringed PTFE graft brought through the tunnel. The patient was systemically heparinized and an ACT was checked every 30 minutes and maintained greater than 250 for the remainder of the case. A Mccormick vascular clamp was placed around the proximal common femoral artery for vascular control, and the loops around the SFA and profunda branches were tightened. A common femoral arteriotomy was made with an 11 blade and extended proximally with Dunn scissors, and extended onto the profunda distally. A semi- closed endarterectomy technique with a freer elevator was used to remove the proximaldisease. A separate and distinct endarterectomy of the profunda femoral artery was carried to it's trifurcation. After inspecting the proximal and distal endpoints, a segment of the spatulated vein was used to patch the arteriotomy using running 5-0 prolene. A patch-otomy was made in the vein patch sharply, and the proximal end of the PTFE bypass graft was anastomosed using running 6-0 prolene. The vessel loops and Mccormick clamp were released and the anastomosis de-aired through the distal end of the graft. Repair sutures were placed as needed for hemostasis. A sterile tourniquet was placed around the distal thigh. The leg was exsanguinated with esmark and the tourniquet inflated to 250 mmHg. A lengthy arteriotomy was made sharply on the posterior tibial artery. A segment of the spatulated vein was used to make a vein patch using 7-0 running prolene. A p atch-otomy was made in the vein patch sharply, and the distal end of the PTFE bypass graft was anastomosed using running 7-0 prolene. Prior to completing the anastomosis, the tourniquet was deflated to allow back bleeding from the posterior tibial artery. The graft was opened, and repair stitches placed as needed. Doppler interrogation of the distal posterior tibial artery demonstrated triphasic flow. The patient was given 50 mg of protamine. Hemostasis in both incisions was obtained with cautery and hemostatic agents. Both incisions were closed in multiple layers. The patient was brought to the recovery area in good condition. I was present for the entirety of the procedure. There were NO signs of surgical site infection (SSI) present at the time of surgery (PATOS). Complications: None; patient tolerated the procedure well. Submitted by: Kana Maddox MD - 03/29/2025 Cosigned by Fabián Salgado MD at 04/02/2025 10:11 AM EDT * Clinician Note - Koki Pruitt DO - 03/29/2025 1:22 PM EDT Vascular Surgery Update Patient to OR today for left femoral to distal bypass with possible vein vs. PTFE. The risks, benefits, indications, contraindications, and surgical alternatives were explained to the patient. Specifically, the risks of surgery, including bleeding, infection, injury to nearby organs or structures, need for additional surgery or procedures, wound complications, and complications of general anesthesia. Commonly associated risks of the procedure where also discussed with the patient in detial. Thepatient participated in the discussion and was given an opportunity to ask questions. All questionswhere answered to the patient's verbal satisification. Koki Pruitt DO, MBA Vascular Surgery Fellow * Progress Notes - Therese Pinto - 03/29/2025 11:07 AM EDT Case Management Adult Progress Note Nicko Baumann 84 y.o. male CSN: [id number] Admission: 03/25/2025 9:13 AM Primary Problem: Peripheral arterial disease Patient is not medically ready for discharge at this time. In OR today. SW will continue to follow. Therese Pinto VICE PRESIDENT OF INSTRUCTION * Care Plan - Kvng Penny RN - 03/29/2025 1:19 AM EDT Problem: Adult Inpatient Plan of Care Goal: Plan of Care Review Outcome: Ongoing, Progressing Flowsheets (Taken 03/28/20251999) Progress: no change Plan of Care Reviewed With: patient Goal: Patient-Specific Goal (Individualized) Outcome: Ongoing, Progressing Goal: Absence of Hospital-Acquired Illness or Injury Outcome: Ongoing, Progressing Intervention: Prevent Infection Flowsheets (Taken 03/27/20251999) Infection Prevention: cohorting utilized hand hygiene promoted rest/sleep promoted single patient room provided environmental surveillance performed Goal: Optimal Comfort and Wellbeing Outcome: Ongoing, Progressing Intervention: Monitor Pain and Promote Comfort Flowsheets (Taken 03/27/20251999) Pain Management Interventions: medication (see MAR) pillow support provided position adjusted relaxation techniques promoted quiet environment facilitated rest Intervention: Provide Person-Centered Care Flowsheets (Taken 03/27/20251999) Trust Relationship/Rapport: care explained emotional support provided questions answered questions encouraged thoughts/feelings acknowledged Problem: Skin Injury Risk Increased Goal: Skin Health and Integrity Outcome: Ongoing, Progressing Intervention: Optimize Skin Protection Flowsheets Taken 03/27/20252099 Pressure Reduction Techniques: frequent weight shift encouraged Taken 03/27/20251999 Pressure Reduction Devices: positioning supports utilized specialty bed utilized Intervention: Promote and Optimize Oral Intake Flowsheets (Taken 03/28/20251999) Oral Nutrition Promotion: rest periods promoted physical activity promoted Nutrition Interventions: diet adjusted Problem: Mobility Impairment Goal: Optimal Mobility Outcome: Ongoing, Progressing Intervention: Optimize Mobility Flowsheets (Taken 03/28/20251999) Assistive Device Utilized: front wheel walker Positioning/Transfer Devices: pillows Problem: Fluid Volume Deficit Goal: Fluid Balance Outcome: Ongoing, Progressing Intervention: Monitor and Manage Hypovolemia Flowsheets (Taken 03/28/20251999) Fluid/Electrolyte Management: fluids provided fluids adjusted Problem: Lower Extremity Revascularization Goal: Absence of Bleeding Outcome: Ongoing, Progressing Goal: Effective Bowel Elimination Outcome: Ongoing, Progressing Intervention: Enhance Bowel Motility and Elimination Flowsheets (Taken 03/28/20251999) Bowel Elimination Management: relaxation techniques promoted sitting position facilitated Bowel Motility Enhancement: fluid intake encouraged oral intake encouraged ambulation promoted Goal: Absence of Infection Signs and Symptoms Outcome: Ongoing, Progressing Intervention: Prevent or Manage Infection Flowsheets (Taken 03/28/20251999) Infection Management: aseptic technique maintained Fever Reduction/Comfort Measures: lightweight bedding lightweight clothing Goal: Effective Urinary Elimination Outcome: Ongoing, Progressing Intervention: Monitor and Manage Urinary Retention Flowsheets (Taken 03/27/20251999) Urinary Elimination Promotion: absorbent pad/diaper use encouraged frequent voiding encouraged voiding relaxation promoted positioned for ease of voiding Goal: Effective Oxygenation and Ventilation Outcome: Ongoing, Progressing Intervention: Optimize Oxygenation and Ventilation Flowsheets (Taken 03/28/20251999) Airway/Ventilation Management: position adjusted calming measures promoted airway patency maintained Goal: Effective Tissue Perfusion Outcome: Ongoing, Progressing Intervention: Optimize Tissue Perfusion Flowsheets (Taken 03/27/20251999) Pressure Reduction Devices: positioning supports utilized specialty bed utilized Problem: Fall Injury Risk Goal: Absence of Fall and Fall-Related Injury Outcome: Ongoing, Progressing Intervention: Identify and Manage Contributors Flowsheets (Taken 03/28/20251999) Medication Review/Management: medications reviewed Self-Care Promotion: independence encouraged BADL personal objects within reach BADL personal routines maintained * Care Plan - Ashley Lizama RN - 03/28/2025 3:50 PM EDT Problem: Adult Inpatient Plan of Care Goal: Plan of Care Review Outcome: Ongoing, Progressing Flowsheets (Taken 03/27/20251999 by Kvng Penny RN) Progress: improving Plan of Care Reviewed With: patient Goal: Patient-Specific Goal (Individualized) Outcome: Ongoing, Progressing Flowsheets (Taken 03/28/2025 1547) Patient/Family-Specific Goals (Include Timeframe): Pt will remain free of injury/falls throughout this shift. Individualized Care Needs: safety/repositionings Anxieties, Fears or Concerns: none Goal: Absence of Hospital-Acquired Illness or Injury Outcome: Ongoing, Progressing Intervention: Prevent Skin Injury Flowsheets Taken 03/28/2025 0600 by Kvng Penny RN Body Position: weight shifting Taken 03/27/2025 2100 by Kvng Penny RN Skin Protection: incontinence pads utilized Intervention: Prevent and Manage VTE (Venous Thromboembolism) Risk Flowsheets (Taken 03/28/2025 1000) VTE Prevention/Management: right lower extremity SCDs (sequential compression devices) on Intervention: Prevent Infection Flowsheets (Taken 03/27/20251999 by Kvng Penny RN) Infection Prevention: cohorting utilized hand hygiene promoted rest/sleep promoted single patient room provided environmental surveillance performed Goal: Optimal Comfort and Wellbeing Outcome: Ongoing, Progressing Problem: Skin Injury Risk Increased Goal: Skin Health and Integrity Outcome: Ongoing, Progressing Intervention: Optimize Skin Protection Flowsheets Taken 03/28/2025 1000 by Ashley Lizama RN Activity Management: activity adjusted per tolerance activity encouraged ambulated in room up in chair Taken 03/28/2025 0800 by Ashley Lizama RN Head of Bed (HOB) Positioning: HOB elevated Taken 03/27/2025 2100 by Kvng Penny RN Pressure Reduction Techniques: frequent weight shift encouraged Skin Protection: incontinence pads utilized Taken 03/27/20251999 by Kvng Penny RN Pressure Reduction Devices: positioning supports utilized specialty bed utilized Problem: Mobility Impairment Goal: Optimal Mobility Outcome: Ongoing, Progressing Intervention: Optimize Mobility Flowsheets Taken 03/28/2025 1000 by Ashley Lizama RN Activity Management: activity adjusted per tolerance activity encouraged ambulated in room up in chair Taken 03/27/20251999 by Kvng Penny RN Positioning/Transfer Devices: pillows Taken 03/27/2025 1543 by Aruna Giron RN Assistive Device Utilized: front wheel walker Problem: Fluid Volume Deficit Goal: Fluid Balance Outcome: Ongoing, Progressing Intervention: Monitor and Manage Hypovolemia Flowsheets (Taken 03/27/20251999 by Kvng Penny RN) Fluid/Electrolyte Management: fluids provided Problem: Lower Extremity Revascularization Goal: Absence of Bleeding Outcome: Ongoing, Progressing Goal: Effective Bowel Elimination Outcome: Ongoing, Progressing Intervention: Enhance Bowel Motility and Elimination Flowsheets (Taken 03/27/20251999 by Kvng Penny RN) Bowel Elimination Management: relaxation techniques promoted hygiene measures promoted sitting position facilitated Bowel Motility Enhancement: ambulation promoted fluid intake encouraged oral intake encouraged Goal: Absence of Infection Signs and Symptoms Outcome: Ongoing, Progressing Goal: Effective Urinary Elimination Outcome: Ongoing, Progressing Goal: Effective Oxygenation and Ventilation Outcome: Ongoing, Progressing Intervention: Optimize Oxygenation and Ventilation Flowsheets Taken 03/28/2025 0800 by Ashley Lizama RN Head of Bed (HOB) Positioning: HOB elevated Taken 03/27/20251999 by Kvng Penny RN Airway/Ventilation Management: oxygen therapy provided position adjusted calming measures promoted pulmonary hygiene promoted Goal: Effective Tissue Perfusion Outcome: Ongoing, Progressing Intervention: Optimize Tissue Perfusion Flowsheets Taken 03/28/2025 0600 by Kvng Penny RN Body Position: weight shifting Taken 03/27/20251999 by Kvng Penny RN Pressure Reduction Devices: positioning supports utilized specialty bed utilized Problem: Fall Injury Risk Goal: Absence of Fall and Fall-Related Injury Outcome: Ongoing, Progressing Intervention: Identify and Manage Contributors Flowsheets (Taken 03/27/20251999 by Kvng Penny RN) Medication Review/Management: medications reviewed Self-Care Promotion: independence encouraged BADL personal objects within reach BADL personal routines maintained * Progress Notes - Layne James MD - 03/28/2025 8:26 AM EDT Images from the original note were not included. [facility] Department of Surgery Division of Vascular Surgery Surgery Progress Note 03/28/25 Nicko Baumann Subjective Subjective: HPI 84 yo male with history of RA, CAD s/p CABG, right LEXI s/p R CEA, left LEXI, prostate cancer who presents to on 03/25/25 for planned surgery with Dr Salgado. Patient with wounds to his left foot. CTA with left popliteal/tibial disease. Went to OR for endo intervention, was unsuccessful. Now planningfor bypass. 03/25/25: US guided R INSUR[employer] BILLING CLERK access, LLE angio, cath of L TP trunk, balloon angio of L femoral popliteal (constantine) Interval: NAEO. Patient denies pain and states he feels well. Has motor and sensory function in hisLLE. Echo still pending at this time. Marked and consented for OR tomorrow. Review of Systems: Relevant review of systems was obtained as able and is negative unless stated above in HPI. Objective Objective: Vital signs: Vitals: 03/28/25 2358 BP: 119/61 Pulse: 69 Resp: 18 Temp: 37.1 ??C (98.7 ??F) SpO2: 92% Physical Exam: GENERAL: awake, alert. Well appearing. NAD HEENT: EOMI. head atraumatic and normocephalic NECK: Supple. No JVD noted. The trachea appears midline. RESP: Symmetric expansion; no retractions. CARD: RRR, appears well perfused Extremities: - LE edema. + L ulcer (dressing clean, dry) with betadine GI: No organomegaly or masses. Nontender nondistended. Soft. SKIN: No rash, sores, lesions or subcutaneous nodules. : appropriate UOP NEURO:A+O x3. At baseline Intake/Output Summary (Last 24 hours) at 03/29/2025 0026 Last data filed at 03/28/2025 2358 Gross per 24 hour Intake 1302 ml Output 1901 ml Net -599 ml Lab Trends: H/H Results from last 7 days Lab Units 03/28/25 0405 03/26/25 0153 03/25/25 1128 HEMOGLOBIN g/dL 11.1* 10.9* 14.7 HEMATOCRIT % 33.8* 32.4* 43.2 INR Results from last 7 days Lab Units 03/25/25 1128 INR 1.1 Cr Results from last 7 days Lab Units 03/26/25 0153 03/25/25 1128 CREATININE mg/dL 0.83 0.84 Radiographic Interpretation: No imagining today. Medications reviewed. Vital signs reviewed. Labs reviewed. Assessment/Plan Assessment and Plan: Medical Problems Problem List * (Principal) Peripheral arterial disease (CMS/HCC) ERIC (obstructive sleep apnea) CAD (coronary artery disease) Arthritis Ischemic ulcer, 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) Limb ischemia Plan Today: - Posted for OR 03/29 for LLE femoral to distal artery bypass with Constantine - Consented, marked, NPO at midnight - Continue ASA 81 mg daily - ECHO pending - pre procedure EKG, and vein mapping complete - Cards consulted for preop clearance - Left anterior foot wounds (x 2): iodosorb gel (betadine) to wounds, keep dry, wrap with kerlex, change daily Dispo: Continue Current Level of Care Layne James MD Cosigned by Kathryn Cota MD at 03/30/2025 11:37 AM EDT Associated attestation - Kathryn Cota MD - 03/30/2025 11:37 AM EDT I saw and evaluated the patient with the resident/fellow. I discussed the case with the resident/fellow and agree with the findings and plan as documented. * Care Plan - Kvng Penny RN - 03/27/2025 11:36 PM EDT Problem: Adult Inpatient Plan of Care Goal: Plan of Care Review Outcome: Ongoing, Progressing Flowsheets (Taken 03/27/20251999) Progress: improving Plan of Care Reviewed With: patient Goal: Patient-Specific Goal (Individualized) Outcome: Ongoing, Progressing Goal: Absence of Hospital-Acquired Illness or Injury Outcome: Ongoing, Progressing Intervention: Prevent Infection Flowsheets (Taken 03/27/20251999) Infection Prevention: cohorting utilized hand hygiene promoted rest/sleep promoted single patient room provided environmental surveillance performed Goal: Optimal Comfort and Wellbeing Outcome: Ongoing, Progressing Intervention: Monitor Pain and Promote Comfort Flowsheets (Taken 03/27/20251999) Pain Management Interventions: medication (see MAR) pillow support provided position adjusted relaxation techniques promoted quiet environment facilitated rest Intervention: Provide Person-Centered Care Flowsheets (Taken 03/27/20251999) Trust Relationship/Rapport: care explained emotional support provided questions answered questions encouraged thoughts/feelings acknowledged Problem: Skin Injury Risk Increased Goal: Skin Health and Integrity Outcome: Ongoing, Progressing Intervention: Optimize Skin Protection Flowsheets (Taken 03/27/20252099) Activity Management: back to bed activity adjusted per tolerance Pressure Reduction Techniques: frequent weight shift encouraged Skin Protection: incontinence pads utilized Head of Bed (HOB) Positioning: HOB elevated Intervention: Promote and Optimize Oral Intake Flowsheets (Taken 03/27/20251999) Oral Nutrition Promotion: rest periods promoted Nutrition Interventions: diet adjusted Problem: Mobility Impairment Goal: Optimal Mobility Outcome: Ongoing, Progressing Intervention: Optimize Mobility Flowsheets (Taken 03/27/20251999) Activity Management: up in chair Positioning/Transfer Devices: pillows Problem: Fluid Volume Deficit Goal: Fluid Balance Outcome: Ongoing, Progressing Intervention: Monitor and Manage Hypovolemia Flowsheets (Taken 03/27/20251999) Fluid/Electrolyte Management: fluids provided Problem: Lower Extremity Revascularization Goal: Absence of Bleeding Outcome: Ongoing, Progressing Goal: Effective Bowel Elimination Outcome: Ongoing, Progressing Intervention: Enhance Bowel Motility and Elimination Flowsheets (Taken 03/27/20251999) Bowel Elimination Management: relaxation techniques promoted hygiene measures promoted sitting position facilitated Bowel Motility Enhancement: ambulation promoted fluid intake encouraged oral intake encouraged Goal: Absence of Infection Signs and Symptoms Outcome: Ongoing, Progressing Intervention: Prevent or Manage Infection Flowsheets Taken 03/27/20251999 Infection Management: aseptic technique maintained Taken 03/26/20251999 Fever Reduction/Comfort Measures: lightweight bedding lightweight clothing Goal: Effective Urinary Elimination Outcome: Ongoing, Progressing Intervention: Monitor and Manage Urinary Retention Flowsheets (Taken 03/27/20251999) Urinary Elimination Promotion: absorbent pad/diaper use encouraged frequent voiding encouraged voiding relaxation promoted positioned for ease of voiding Goal: Effective Oxygenation and Ventilation Outcome: Ongoing, Progressing Intervention: Optimize Oxygenation and Ventilation Flowsheets (Taken 03/27/20251999) Airway/Ventilation Management: oxygen therapy provided position adjusted calming measures promoted pulmonary hygiene promoted Goal: Effective Tissue Perfusion Outcome: Ongoing, Progressing Intervention: Optimize Tissue Perfusion Flowsheets (Taken 03/27/20251999) Pressure Reduction Devices: positioning supports utilized specialty bed utilized Problem: Fall Injury Risk Goal: Absence of Fall and Fall-Related Injury Outcome: Ongoing, Progressing Intervention: Identify and Manage Contributors Flowsheets (Taken 03/27/20251999) Medication Review/Management: medications reviewed Self-Care Promotion: independence encouraged BADL personal objects within reach BADL personal routines maintained * Care Plan - Aruna Giron RN - 03/27/2025 3:48 PM EDT Problem: Adult Inpatient Plan of Care Goal: Plan of Care Review Outcome: Ongoing, Progressing Flowsheets (Taken 03/27/2025 1543) Progress: improving Plan of Care Reviewed With: patient Goal: Patient-Specific Goal (Individualized) Outcome: Ongoing, Progressing Flowsheets (Taken 03/27/2025 0800) Patient/Family-Specific Goals (Include Timeframe): Patient will have his surgery completed on Saturday. Individualized Care Needs: Patient will remain safe and free from injuries and falls. Anxieties, Fears or Concerns: Patient will be able to rest between care today. Goal: Absence of Hospital-Acquired Illness or Injury Outcome: Ongoing, Progressing Intervention: Identify and Manage Fall Risk Flowsheets (Taken 03/27/2025 1400) Safety Promotion/Fall Prevention: activity supervised clutter-free environment maintained fall prevention program maintained lighting adjusted assistive device/personal items within reach nonskid shoes/slippers when out of bed room organization consistent safety round/check completed toileting scheduled Intervention: Prevent Skin Injury Flowsheets Taken 03/27/2025 1400 Body Position: heels elevated education provided weight shifting Taken 03/27/2025 0800 Skin Protection: incontinence pads utilized protective footwear used skin sealant/moisture barrier applied Intervention: Prevent and Manage VTE (Venous Thromboembolism) Risk Flowsheets (Taken 03/27/2025 0800) VTE Prevention/Management: right compression stockings on medication education provided Intervention: Prevent Infection Flowsheets (Taken 03/27/2025 1543) Infection Prevention: equipment surfaces disinfected hand hygiene promoted rest/sleep promoted Goal: Optimal Comfort and Wellbeing Outcome: Ongoing, Progressing Intervention: Monitor Pain and Promote Comfort Flowsheets (Taken 03/27/2025 1543) Pain Management Interventions: care clustered breathing exercises ambulation/increased activity pain management plan reviewed with patient/caregiver pillow support provided position adjusted relaxation techniques promoted quiet environment facilitated rest Intervention: Provide Person-Centered Care Flowsheets (Taken 03/27/2025 1543) Trust Relationship/Rapport: care explained choices provided emotional support provided empathic listening provided questions answered questions encouraged reassurance provided thoughts/feelings acknowledged Problem: Skin Injury Risk Increased Goal: Skin Health and Integrity Outcome: Ongoing, Progressing Intervention: Optimize Skin Protection Flowsheets Taken 03/27/2025 1543 Pressure Reduction Techniques: frequent weight shift encouraged heels elevated off bed rest period provided between sit times Pressure Reduction Devices: chair cushion utilized feet on footrest/footstool positioning supports utilized Taken 03/27/2025 1400 Activity Management: activity encouraged up in chair Head of Bed (HOB) Positioning: HOB elevated Taken 03/27/2025 0800 Skin Protection: incontinence pads utilized protective footwear used skin sealant/moisture barrier applied Intervention: Promote and Optimize Oral Intake Flowsheets (Taken 03/27/2025 1543) Oral Nutrition Promotion: rest periods promoted physical activity promoted social interaction promoted Nutrition Interventions: food preferences provided meal set-up provided supplemental drinks provided Problem: Mobility Impairment Goal: Optimal Mobility Outcome: Ongoing, Progressing Intervention: Optimize Mobility Flowsheets Taken 03/27/2025 1543 Assistive Device Utilized: front wheel walker Positioning/Transfer Devices: pillows Taken 03/27/2025 1400 Activity Management: activity encouraged up in chair Problem: Fluid Volume Deficit Goal: Fluid Balance Outcome: Ongoing, Progressing Intervention: Monitor and Manage Hypovolemia Flowsheets (Taken 03/27/2025 1543) Fluid/Electrolyte Management: fluids provided Problem: Lower Extremity Revascularization Goal: Absence of Bleeding Outcome: Ongoing, Progressing Goal: Effective Bowel Elimination Outcome: Ongoing, Progressing Intervention: Enhance Bowel Motility and Elimination Flowsheets (Taken 03/27/2025 1543) Bowel Elimination Management: hygiene measures promoted relaxation techniques promoted sitting position facilitated toileting offered Bowel Motility Enhancement: ambulation promoted fluid intake encouraged oral intake encouraged Goal: Absence of Infection Signs and Symptoms Outcome: Ongoing, Progressing Intervention: Prevent or Manage Infection Flowsheets (Taken 03/27/2025 1543) Infection Management: aseptic technique maintained Goal: Effective Urinary Elimination Outcome: Ongoing, Progressing Intervention: Monitor and Manage Urinary Retention Flowsheets (Taken 03/27/2025 1543) Urinary Elimination Promotion: frequent voiding encouraged toileting offered voiding relaxation promoted Note: Male purewick Goal: Effective Oxygenation and Ventilation Outcome: Ongoing, Progressing Intervention: Optimize Oxygenation and Ventilation Flowsheets Taken 03/27/2025 1543 Airway/Ventilation Management: calming measures promoted pulmonary hygiene promoted Taken 03/27/2025 1400 Head of Bed (HOB) Positioning: HOB elevated Goal: Effective Tissue Perfusion Outcome: Ongoing, Progressing Intervention: Optimize Tissue Perfusion Flowsheets Taken 03/27/2025 1543 Pressure Reduction Devices: chair cushion utilized feet on footrest/footstool positioning supports utilized Taken 03/27/2025 1400 Body Position: heels elevated education provided weight shifting Problem: Fall Injury Risk Goal: Absence of Fall and Fall-Related Injury Outcome: Ongoing, Progressing Intervention: Identify and Manage Contributors Flowsheets (Taken 03/27/2025 1543) Medication Review/Management: medications reviewed Self-Care Promotion: independence encouraged BADL personal objects within reach BADL personal routines maintained meal set-up provided Intervention: Promote Injury-Free Environment Flowsheets (Taken 03/27/2025 1400) Safety Promotion/Fall Prevention: activity supervised clutter-free environment maintained fall prevention program maintained lighting adjusted assistive device/personal items within reach nonskid shoes/slippers when out of bed room organization consistent safety round/check completed toileting scheduled * Progress Notes - Layne James MD - 03/27/2025 11:55 AM EDT Images from the original note were not included. [facility] Department of Surgery Division of Vascular Surgery Surgery Progress Note 03/28/25 Nicko Julissa Pastor Subjective Subjective: HPI 84 yo male with history of RA, CAD s/p CABG, right LEXI s/p R CEA, left LEXI, prostate cancer who presents to on 03/25/25 for planned surgery with Dr Salgado. Patient with wounds to his left foot. CTA with left popliteal/tibial disease. Went to OR for endo intervention, was unsuccessful. Now planningfor bypass. 03/25/25: US guided R INSURANCE BILLING CLERK access, LLE angio, cath of L TP trunk, balloon angio of L femoral popliteal (constantine) Interval: NAEO. Patient denies pain and states he feels well. Has motor and sensory function in hisLLE. Echo still pending at this time. Review of Systems: Relevant review of systems was obtained as able and is negative unless stated above in HPI. Objective Objective: Vital signs: Vitals: BP: (!) 168/52 Pulse: (!) 46 Resp: 16 Temp: 36.6 ??C (97.8 ??F) SpO2: 93% Physical Exam: GENERAL: awake, alert. Well appearing. NAD HEENT: EOMI. head atraumatic and normocephalic NECK: Supple. No JVD noted. The trachea appears midline. RESP: Symmetric expansion; no retractions. CARD: RRR, appears well perfused Extremities: - LE edema, no cyanosis or clubbing. GI: No organomegaly or masses. Nontender nondistended. Soft. SKIN: small left foot wounds : appropriate UOP NEURO:A+O x3. At baseline Lab Trends: H/H Results from last 7 days Lab Units 03/26/25 0153 03/25/25 1128 HEMOGLOBIN g/dL 10.9* 14.7 HEMATOCRIT % 32.4* 43.2 INR Results from last 7 days Lab Units 03/25/25 1128 INR 1.1 Cr Results from last 7 days Lab Units 03/26/25 0153 03/25/25 1128 CREATININE mg/dL 0.83 0.84 Radiographic Interpretation: No imagining today. Medications reviewed. Vital signs reviewed. Labs reviewed. Assessment/Plan Assessment and Plan: Medical Problems Problem List * (Principal) Peripheral arterial disease (CMS/HCC) ERIC (obstructive sleep apnea) CAD (coronary artery disease) Arthritis Ischemic ulcer, 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) Limb ischemia Plan Today: [ ] Consent, oscar - Posted for OR 03/29 for LLE femoral to distal artery bypass with Constantine - Continue ASA 81 mg daily - ECHO pending - pre procedure EKG, and vein mapping complete - Cards consulted for preop clearance - Left anterior foot wounds (x 2): iodosorb gel (betadine) to wounds, keep dry, wrap with kerlex, change daily Dispo: Continue Current Level of Care Layne James MD General Surgery, PGY1 Cosigned by Thang Wood MD at 04/02/2025 10:48 AM EDT Associated attestation - Thang Wood MD - 04/02/2025 10:48 AM EDT I saw and evaluated the patient. I discussed the case with the resident/fellow and agree with the findings and plan as documented. Vascular Surgery: The comorbid conditions that impact and complicate our treatment planning include: Hypertension (HTN) - poorly controlled, with a last BP of: BP Readings from Last 3 Encounters: 04/02/25 (!) 146/84 03/17/25 (!) 175/71 02/10/25 (!) 162/67 Cachexia / Malnutrition - needs improvement, with a last Albumin of: 2.7g/dL * Care Plan - Kvng Penny RN - 03/26/2025 10:25 PM EDT Problem: Adult Inpatient Plan of Care Goal: Plan of Care Review Outcome: Ongoing, Progressing Flowsheets (Taken 03/26/20251999) Progress: no change Plan of Care Reviewed With: patient Goal: Patient-Specific Goal (Individualized) Outcome: Ongoing, Progressing Goal: Absence of Hospital-Acquired Illness or Injury Outcome: Ongoing, Progressing Intervention: Prevent Skin Injury Flowsheets (Taken 03/26/20251999) Body Position: legs elevated weight shifting Skin Protection: incontinence pads utilized protective footwear used Intervention: Prevent and Manage VTE (Venous Thromboembolism) Risk Flowsheets (Taken 03/26/20251999) VTE Prevention/Management: right SCDs (sequential compression devices) on medication Intervention: Prevent Infection Flowsheets (Taken 03/26/20251999) Infection Prevention: environmental surveillance performed hand hygiene promoted rest/sleep promoted single patient room provided Goal: Optimal Comfort and Wellbeing Outcome: Ongoing, Progressing Intervention: Monitor Pain and Promote Comfort Flowsheets (Taken 03/26/20251999) Pain Management Interventions: medication (see MAR) care clustered quiet environment facilitated pillow support provided relaxation techniques promoted rest position adjusted Intervention: Provide Person-Centered Care Flowsheets (Taken 03/26/20251999) Trust Relationship/Rapport: care explained empathic listening provided questions answered questions encouraged thoughts/feelings acknowledged emotional support provided Problem: Skin Injury Risk Increased Goal: Skin Health and Integrity Outcome: Ongoing, Progressing Intervention: Optimize Skin Protection Flowsheets (Taken 03/26/20251999) Activity Management: education provided activity adjusted per tolerance activity encouraged Pressure Reduction Devices: positioning supports utilized Skin Protection: incontinence pads utilized protective footwear used Intervention: Promote and Optimize Oral Intake Flowsheets (Taken 03/26/20251999) Oral Nutrition Promotion: rest periods promoted physical activity promoted Nutrition Interventions: diet adjusted Problem: Mobility Impairment Goal: Optimal Mobility Outcome: Ongoing, Progressing Intervention: Optimize Mobility Flowsheets (Taken 03/26/20251999) Activity Management: education provided activity adjusted per tolerance activity encouraged Problem: Fluid Volume Deficit Goal: Fluid Balance Outcome: Ongoing, Progressing Intervention: Monitor and Manage Hypovolemia Flowsheets (Taken 03/26/2025 2219) Fluid/Electrolyte Management: fluids provided Problem: Lower Extremity Revascularization Goal: Absence of Bleeding Outcome: Ongoing, Progressing Intervention: Monitor and Manage Bleeding Flowsheets (Taken 03/26/20251999) Bleeding Management: affected area elevated dressing monitored Goal: Effective Bowel Elimination Outcome: Ongoing, Progressing Intervention: Enhance Bowel Motility and Elimination Flowsheets (Taken 03/26/20251999) Bowel Elimination Management: relaxation techniques promoted Bowel Motility Enhancement: fluid intake encouraged oral intake encouraged Goal: Absence of Infection Signs and Symptoms Outcome: Ongoing, Progressing Intervention: Prevent or Manage Infection Flowsheets (Taken 03/26/20251999) Infection Management: aseptic technique maintained Fever Reduction/Comfort Measures: lightweight bedding lightweight clothing Goal: Effective Urinary Elimination Outcome: Ongoing, Progressing Intervention: Monitor and Manage Urinary Retention Flowsheets (Taken 03/26/20251999) Urinary Elimination Promotion: frequent voiding encouraged positioned for ease of voiding toileting offered voiding relaxation promoted Goal: Effective Oxygenation and Ventilation Outcome: Ongoing, Progressing Goal: Effective Tissue Perfusion Outcome: Ongoing, Progressing Intervention: Optimize Tissue Perfusion Flowsheets (Taken 03/26/20251999) Body Position: legs elevated weight shifting Pressure Reduction Devices: positioning supports utilized Problem: Fall Injury Risk Goal: Absence of Fall and Fall-Related Injury Outcome: Ongoing, Progressing Intervention: Identify and Manage Contributors Flowsheets (Taken 03/26/20251999) Medication Review/Management: medications reviewed Self-Care Promotion: independence encouraged BADL personal objects within reach BADL personal routines maintained * Care Plan - Ashley Lizama RN - 03/26/2025 3:30 PM EDT Problem: Adult Inpatient Plan of Care Goal: Plan of Care Review Outcome: Ongoing, Progressing Flowsheets (Taken 03/25/2025 2349 by Can Billings RN) Progress: improving Plan of Care Reviewed With: patient Goal: Patient-Specific Goal (Individualized) Outcome: Ongoing, Progressing Flowsheets (Taken 03/26/2025 1829) Patient/Family-Specific Goals (Include Timeframe): Pt will aid in repositioning every 2 hours throughout this shift. Individualized Care Needs: repositioning, pressure injury prevention, waffle cushion in place Anxieties, Fears or Concerns: none Goal: Absence of Hospital-Acquired Illness or Injury Outcome: Ongoing, Progressing Intervention: Identify and Manage Fall Risk Flowsheets (Taken 03/26/2025 0800) Safety Promotion/Fall Prevention: activity supervised nonskid shoes/slippers when out of bed mobility aid in reach room organization consistent lighting adjusted safety round/check completed Intervention: Prevent Skin Injury Flowsheets (Taken 03/26/20251999) Body Position: left right turned upper extremity elevated heels elevated side-lying Skin Protection: silicone foam dressing in place Intervention: Prevent and Manage VTE (Venous Thromboembolism) Risk Flowsheets (Taken 03/26/20251999) VTE Prevention/Management: right SCDs (sequential compression devices) on Intervention: Prevent Infection Flowsheets (Taken 03/26/20251999) Infection Prevention: environmental surveillance performed Goal: Optimal Comfort and Wellbeing Outcome: Ongoing, Progressing Problem: Skin Injury Risk Increased Goal: Skin Health and Integrity Outcome: Ongoing, Progressing Intervention: Optimize Skin Protection Flowsheets Taken 03/26/20251999 Activity Management: up in chair back to bed up to bedside commode sitting, edge of bed ambulated in room education provided activity adjusted per tolerance Pressure Reduction Techniques: heels elevated off bed positioned off wounds frequent weight shift encouraged Skin Protection: silicone foam dressing in place Taken 03/26/2025 0800 Head of Bed (HOB) Positioning: HOB elevated Problem: Mobility Impairment Goal: Optimal Mobility Outcome: Ongoing, Progressing Intervention: Optimize Mobility Flowsheets Taken 03/26/20251999 by Ashley Lizama RN Activity Management: up in chair back to bed up to bedside commode sitting, edge of bed ambulated in room education provided activity adjusted per tolerance Taken 03/25/2025 2349 by Can Billings RN Positioning/Transfer Devices: repositioning sheet Problem: Fluid Volume Deficit Goal: Fluid Balance Outcome: Ongoing, Progressing Problem: Lower Extremity Revascularization Goal: Absence of Bleeding Outcome: Ongoing, Progressing Goal: Effective Bowel Elimination Outcome: Ongoing, Progressing Goal: Absence of Infection Signs and Symptoms Outcome: Ongoing, Progressing Intervention: Prevent or Manage Infection Flowsheets (Taken 03/25/2025 2357 by aCn Billings, MERCEDES) Infection Management: aseptic technique maintained Fever Reduction/Comfort Measures: lightweight clothing Goal: Effective Urinary Elimination Outcome: Ongoing, Progressing Goal: Effective Oxygenation and Ventilation Outcome: Ongoing, Progressing Intervention: Optimize Oxygenation and Ventilation Flowsheets Taken 03/26/20251999 Airway/Ventilation Management: airway patency maintained Taken 03/26/2025 0800 Head of Bed (HOB) Positioning: HOB elevated Goal: Effective Tissue Perfusion Outcome: Ongoing, Progressing Intervention: Optimize Tissue Perfusion Flowsheets Taken 03/26/20251999 by Ashley Lizama RN Body Position: left right turned upper extremity elevated heels elevated side-lying Taken 03/26/2025 1406 by Clifford Mazariegos RN Pressure Reduction Devices: chair cushion utilized pressure-redistributing mattress utilized * Progress Notes - Therese Pinto - 03/26/2025 2:47 PM EDT Case Management Adult Initial Progress Note Nicko Julissa Pastor 84 y.o. male CSN: [id number] Admission: 03/25/2025 9:13 AM Primary Problem: Peripheral arterial sap pi developer reviewed chart and spoke with patient to complete this Initial Case Management Assessment. PCP: Josee Preciado APRN Emergency Contact: Extended Emergency Contact Information Primary Emergency Contact: Elena Babin [address]: [address] [place] [address] Mobile Relation: Spouse Preferred language: Turkmen Gas Welding Equipment Mechanic needed? No Insurance: Primary Visit Coverage Payer Plan Sponsor Code Group Number Group Name MEDICARE MEDICARE A & B Primary Visit Coverage Subscriber Subscriber ID Subscriber Name Subscriber SSN Subscriber Address [id number] Nicko Baumann [id number] [place] [address] Secondary Visit Coverage Payer Plan Sponsor Code Group Number Group Name HUMANA HUMANA MEDICARE SUPPLEMENT [id number] Secondary Visit Coverage Subscriber Subscriber ID Subscriber Name Subscriber SSN Subscriber Address [id number] Nicko Baumann [id number] [place] [address] Patient information: Primary Caregiver: Self Support System: Immediate family Daily Living Activities: Functional Status: Minimum assistance Living Arrangements: Spouse/Significant other Type of Residence: Private residence, Single Level [address] [place] [address] Current DME: Equipment Currently Used at Home: walker, rollator Income Information: Income Source: Retired Income/Expense Information: Income meets expenses Current Resources Utilized: None Housing Circumstances-Z Codes: Housing Circumstances (select all that apply): None Applicable Patient Referred to: TBD Anticipated Discharge Date: TBD - OR on Saturday Patient's Discharge Goal: Patient/Family Anticipates Transition to: home with help/services Assistance Available at Discharge: Current Outpatient/Agency/Support Group: DME Availability of Care Givers (#Hours): 24 hours Discharge Transport: Transportation Anticipated: family or friend will provide Follow Up Transport: Transportation Needed to Follow up Appoinments: Family/Friend will Provide, Self Home Health / Home Infusion / Outpatient Dialysis Services: None Living Will/Advance Directive/Power of [employer] /Guardian: Yes, LW and AD not on file Additional Comments: Patient in OR on Saturday. No SW needs identified. Therese Pinto VICE PRESIDENT OF INSTRUCTION * Care Plan - Clifford Mazariegos RN - 03/26/2025 2:06 PM EDT Problem: Skin Injury Risk Increased Goal: Skin Health and Integrity Outcome: Ongoing, Progressing Intervention: Optimize Skin Protection Flowsheets (Taken 03/26/2025 1406) Activity Management: activity adjusted per tolerance up in chair Pressure Reduction Devices: chair cushion utilized pressure-redistributing mattress utilized Skin Protection: silicone foam dressing in place Patient evaluated by [facility] nurse, individualized recommendations placed and care plan interventions updated; see wound care note for details regarding recommendations to support optimal wound healing. * Progress Notes - Clifford Mazariegos RN - 03/26/2025 1:26 PM EDT Images from the original note were not included. Wound Care Consult Visit Date: 03/26/2025 Patient Name: Nicko Baumann Date of : 1940 Admit Date: 03/25/2025 Reason for Consult: IP Wound Orders (From admission, onward) Start Ordered 03/25/251930 Wound ostomy eval and treat 2 Wounds Associated Once Comments: Areas of unblanchable redness on bilateral buttocks Question: Instructions: Answer: Prior to sending evaluation & treat order, place wound/ostomy LDA, complete a wound/ostomy assessment, and consider taking a photograph to document. 03/25/251931 Wound History: dmitted 03/25/2025 for management of peripheral arterial disease. Wound Assessment: Wound 12/15/24 Foot Anterior;Left (Active) Date First Assessed/Time First Assessed: 12/15/24 1111 Hand Hygiene Completed: Yes Location: Foot Wound Location Orientation: Anterior;Left Assessments 03/26/2025 11:00 AM Wound Image Wound Assessment Dry;White;[place];Painful Margins Well-defined edges Tiffanie-Wound Assessment Intact Wound Length (cm) 0.4 cm Wound Width (cm) 0.3 cm Wound Surface Area (cm^2) 0.09 cm^2 Drainage Amount None Dressing Status Open to air Active Orders Date Order Priority Status Authorizing Provider 03/26/25 1322 Apply/Change Wound Dressing 2 Wounds Associated Routine Active Fabián Salgado MD - Dressing Type: Other Dressings - Other: Other (Comment) - Other dressing (comment):: Daily, gently cleanse wound with saline flush or saline moist gauze. Apply Iodosorb gel (cadexomer iodine) 1/8 to 1/4 thick to dry gauze to match size of wound. Place gauze over wound to fill wound base with iodosorb. Cover with dry dressing. Wound 12/15/24 Foot Anterior;Left (Active) Date First Assessed/Time First Assessed: 12/15/24 1113 Hand Hygiene Completed: Yes Location: Foot Wound Location Orientation: Anterior;Left Assessments 03/26/2025 11:00 AM Wound Image Wound Assessment Brown;Dry Margins Well-defined edges Tiffanie-Wound Assessment Intact Wound Length (cm) 0.3 cm Wound Width (cm) 0.5 cm Wound Surface Area (cm^2) 0.12 cm^2 Drainage Amount None Dressing Status Open to air Active Orders Date Order Priority Status Authorizing Provider 03/26/25 1322 Apply/Change Wound Dressing 2 Wounds Associated Routine Active Fabián Salgado MD - Dressing Type: Other Dressings - Other: Other (Comment) - Other dressing (comment):: Daily, gently cleanse wound with saline flush or saline moist gauze. Apply Iodosorb gel (cadexomer iodine) 1/8 to 1/4 thick to dry gauze to match size of wound. Place gauze over wound to fill wound base with iodosorb. Cover with dry dressing. Wound 03/25/25 Other (Comment) Buttocks Mid (Active) Date First Assessed/Time First Assessed: 03/25/25 1901 Primary Wound Type: (c) Other (Comment) Location: Buttocks Wound Location Orientation: Mid Assessments 03/26/2025 11:00 AM Wound Image Wound Assessment Blanchable erythema;Dry Margins Poorly defined Tiffanie-Wound Assessment Intact Drainage Amount None Dressing Silicone dressing;Foam Dressing Changed Changed Dressing Status Intact;Dry;Clean Active Orders Date Order Priority Status Authorizing Provider 03/26/25 1322 Apply/Change Wound Dressing Mid Buttocks Routine Active Fabián Salgado MD - Dressing Type: Other Dressings - Other: Other (Comment) - Other dressing (comment):: Pad and protect coccyx/sacrum with Allevyn foam. Peel back and assess every shift. Change every 3 days and PRN if soiled or saturated. Do not use on incontinent patient. Wound Team Summary Assessment: pt seen while up in the chair pt able to stand with stand by assist,bilat buttocks with blanchable erythema and dried peeling, consistent with friction, two chronic left foot ulcers see above recommend iodosorb Wound Team Plan: Wound care will follow up at regular intervals while inpatient; bedside nursing tofollow wound care recommendations as ordered and please re- consult sooner for new changes or concerns prior to follow up. Clifford Mazariegos RN [facility] 03/26/2025 1:26 PM * Consults - Isrrael Langston MD - 03/26/2025 1:02 PM EDTAssociated Order(s): IP CONSULT TO CARDIOLOGY Images from the original note were not included. CARDIOLOGY NEW CONSULT NOTE Reason For Consult: preoperative risk stratification Requesting Service: Vascular Surgery Requested Date/Time: 03/26/25 SUBJECTIVE History Of Present Illness Nicko Baumann is a 84 y.o. male with a past medical history of CAD s/p CABG, PAD s/p L SFAPOBA, CVA s/p carotid stent who initially presented to the [facility] for LLE angiography. Cardiology consulted for preoperative risk stratification Briefly, he recently developed a nonhealing ulcer on his left foot; ABIs were consistent with PAD. He presented for angiography of his LLE and went to the OR on 03/25. He received POBA to his SFA but his distal stenoses were not amenable to endovascular intervention, so plan was made for open bypass. Cardiology consulted for preoperative risk stratification. On interview, he feels well and endorses LLE pain but denies chest pain, dyspnea, palpitations, orthopnea, or presyncope. He is a former smoker but quit several years ago. He follows with Dr. Morin in cardiology in [place]. Records from his care there are not available, but per the patient, sandi had no recent positive stress tests or concerning TTEs. Review of Systems 14 point ROS reviewed and is otherwise negative except that which is mentioned in the HPI. Past Medical History Past Medical History[1] Surgical History Surgical History[2] Family History Reviewed and non-contributory. Social History Tobacco use: former Alcohol use: Denies any significant recent usage. Other: Denies any recent illicit drug use. Allergies Patient has no known allergies. Home Medications Current Outpatient Medications Medication Instructions acetaminophen (TYLENOL) 1,000 mg, Every 8 hours PRN aspirin (ASPIRIN) 81 mg, Every morning bicalutamide (CASODEX) 50 mg, Every morning bisoprolol (ZEBETA) 5 mg, Every morning CALCIUM CITRATE PO 200 mg, Every morning celecoxib (CELEBREX) 100 mg, Oral, 2 times daily cholecalciferol (VITAMIN D-3) 2,000 Units, Every morning Cyanocobalamin (VITAMIN B-12 PO) 1,000 mg, Daily with lunch denosumab (PROLIA) 60 mg, Every 6 months ferrous sulfate 325 (65 Fe) MG tablet 1 tablet, Daily with breakfast furosemide (LASIX) 20 mg, Every morning leuprolide acetate, 6 Month, (Eligard) 45 MG injection Every 6 months oxybutynin XL (DITROPAN-XL) 10 mg, Every morning predniSONE (DELTASONE) 5 mg, Every morning pregabalin (LYRICA) 100 mg, 2 times daily OBJECTIVE Physical Exam Blood pressure 132/64, pulse 59, temperature 36.8 ??C (98.2 ??F), resp. rate 16, height 1.854 m (6'1 ), weight 85.7 kg (189 lb), SpO2 95%. GENERAL: Awake, alert, NAD HEENT: NCAT NECK: No appreciable JVD CARDIAC: Regular rate, regular rhythm, normal S1/S2, no m/r/g, 2+ radial pulses bilaterally PULM: CTAB without increased work of breathing ABD: Soft, NT, ND EXT: Cool, no LE edema SKIN: No rashes or lesions NEURO: A&Ox4, moving all extremities spontaneously Results / Imaging Results from last 7 days Lab Units 03/26/25 0153 SODIUM mmol/L 136 POTASSIUM mmol/L 4.3 CHLORIDE mmol/L 105 CO2 mmol/L 21* BUN mg/dL 16 CREATININE mg/dL 0.83 CALCIUM mg/dL 8.0* GLUCOSE mg/dL 127* Results from last 7 days Lab Units 03/26/25 0153 WBC 10*3/uL 3.08* HEMOGLOBIN g/dL 10.9* HEMATOCRIT % 32.4* PLATELETS 10*3/uL 153* Most recent Echocardiogram: 05/2023: LV is normal size. LVEF 55% Grade 3 diastolic dysfunction. RV is mildly dilated. RV systolic function is normal Mild AR Mild MR Mild to moderate TR with RVSP 45mmHg ECG/Telemetry: ASSESSMENT/PLAN Nicko Baumann is a 84 y.o. male who initially presented to the [facility] for LLE angiography. 1) Preoperative risk stratification 2) PAD s/p SFA balloon angioplasty 3) CAD s/p CABG 4) CVA s/p CEA/carotid stenting Planned operation is L fem-distal bypass. METS difficult to assess due to claudication but he can walk a block on level ground with his walker, so capacity is likely >4 METS. RCRI = 3 for high risk operation, ischemic heart disease, and history of CVA indicating a 10% risk of major cardiac events. He would be deemed high risk from a cardiac perspective, but he has no modifiable risk factors which could be optimized prior to surgery. Recommendations: Agree with obtaining preoperative TTE. No further cardiac testing or medication optimization indicated prior to surgery. The following cardiovascular risk factors and co-morbidities complicates the management of these conditions: PAD We will sign off. Please page the on-call talent partner with any further questions. I spent 35 minutes performing the following components of the encounter (on the day of the encounter): reviewing History, examining the patient, reviewing imaging and/or labs, Independently interpreting echocardiogram, ECG and/or other imaging results, counseling the patient and family/caregiver, communicating with other health intensive care specialist, care coordination, and entering clinical information in the EHR. Greater than 50% of the time spent on the encounter was face to face providing direct patient care, counseling for the patient/caregiver, and care coordination. Isrrael Langston MD Medical Records Manager [1] Past Medical History: Diagnosis Date Coronary artery disease Hypertension [2] Past Surgical History: Procedure Laterality Date CORONARY ARTERY BYPASS GRAFT 2004 s/p 4v. CABG. LUMBAR LAMINECTOMY 09/03/2023 L2-5 LAMINECTOMY, SPINE, LUMBAR, FOR DECOMPRESSION (Spine Lumbar). Cosigned by Segun Jeter MD at 03/26/2025 2:50 PM EDT Associated attestation - Segun Jeter MD - 03/26/2025 2:50 PM EDT I saw and evaluated the patient with the resident/fellow. I discussed the case with the resident/fellow and agree with the findings and plan as documented. * Progress Notes - Angelica Anderson, DAMIAN, SHREYAS - 03/26/2025 10:12 AM EDT Images from the original note were not included. Vascular Surgery History of Present Illness: 84 yo male with history of RA, CAD s/p CABG, right LEXI s/p R CEA, left LEXI, prostate cancer who presents to on 03/25/25 for planned surgery with Dr Salgado. Patient with wounds to his left foot. ABIsfrom November demonstrated hemodynamically significant arterial inflow disease on the left, 0.32/0.49 PT/DP respectively. Right demonstrated medial calcinosis with pressures of 0.92/1.34. CTA obtained demonstrating largely left popliteal/tibial disease. Other than his wounds on his left foot, he deniesany significant pain in his b/l LE. He denies symptoms of claudication. He uses a walker to get around the house mostly for balance. He reports he doesn't walk much other than around the house. Proceeded as planned to the OR for the followin03/25/25: US guided R INSURANCE BILLING CLERK access, LLE angio, cath of L TP trunk, balloon angio of L femoral popliteal (constantine) Subjective No acute events overnight. Vitals stable on room air, afebrile. Patient seen on 6a rounds and no c/o pain. Discussed possible surgical intervention on 03/29 pending today's labs and imaging. Labs reviewed and demonstrate the following: stable H/H, A1c orderedc and pending. Right groin access stable with no s/s hematoma. RLE with PT doppler signal. No DP. Will plan for LLE arterial bypass on 03/[address] Salgado. Review of Systems Objective Vitals Temp: [36.8 ??C (98.2 ??F)-37 ??C (98.6 ??F)] 36.8 ??C (98.2 ??F) Heart Rate: [58-71] 58 Resp: [12-19] 16 BP: (102-148)/(44-79) 148/78 Physical Exam Assessment & Plan Peripheral arterial disease Ischemic ulcer, 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) TODAY'S PLAN - Posted for OR 03/29 for LLE femoral to distal artery bypass with Constantine - Consent and oscar 03/28 - Continue ASA 81 mg daily - ECHO to be done 03/26 - pre procedure EKG, and vein mapping complete - Cards consulted for preop clearance - Left anterior foot wounds (x 2): iodosorb gel (betadine) to wounds, keep dry, wrap with kerlex, change daily - Medically Ready for Discharge:Anticipated in 2-4 Days Patient was seen on morning Vascular Surgery rounds and multiple times throughout the day. Please notify the on-call resident or FILTRATION OPERATOR with any questions or concerns. Notify Angelica Anderson Vascular Surgery FILTRATION OPERATOR for any questions or concerns via secure chat, office([phone]), pager [phone]. Please page for any emergent concerns or issues needing addressed within 30 minutes. Daily plan of care discussed and agreed upon in collaboration with the vascular surgery team and vascular surgery attending, Dr Wood. Electronically Signed by: Angelica Anderson APRN, DNP - 03/26/2025 - 8:47 PM * Care Plan - Can Billings RN - 03/25/2025 11:58 PM EDT Problem: Adult Inpatient Plan of Care Goal: Plan of Care Review Outcome: Ongoing, Progressing Flowsheets (Taken 03/25/2025 2349) Progress: improving Plan of Care Reviewed With: patient Goal: Patient-Specific Goal (Individualized) Outcome: Ongoing, Progressing Flowsheets (Taken 03/25/20251999) Patient/Family-Specific Goals (Include Timeframe): tO ENSURE THE PT DOESNOT BLEED FOM FROM right femoral access site within 12 hoours Individualized Care Needs: nurse HOB30 , MONITOR FOR BLEEDING, MONITOR INPUT AND OUT PUT Anxieties, Fears or Concerns: none Goal: Absence of Hospital-Acquired Illness or Injury Outcome: Ongoing, Progressing Intervention: Identify and Manage Fall Risk Flowsheets (Taken 03/25/20252348) Safety Promotion/Fall Prevention: activity supervised assistive device/personal items within reach clutter-free environment maintained fall prevention program maintained lighting adjusted nonskid shoes/slippers when out of bed room organization consistent safety round/check completed Intervention: Prevent and Manage VTE (Venous Thromboembolism) Risk Flowsheets (Taken 03/25/20252348) VTE Prevention/Management: left SCDs (sequential compression devices) on education provided Goal: Optimal Comfort and Wellbeing Outcome: Ongoing, Progressing Intervention: Monitor Pain and Promote Comfort Flowsheets (Taken 03/25/20252348) Pain Management Interventions: medication (see MAR) diversional activity provided emotional support relaxation techniques promoted Problem: Skin Injury Risk Increased Goal: Skin Health and Integrity Outcome: Ongoing, Progressing Intervention: Optimize Skin Protection Flowsheets (Taken 03/25/20252348) Activity Management: activity adjusted per tolerance dorsiflexion/plantar flexion performed Pressure Reduction Techniques: frequent weight shift encouraged Pressure Reduction Devices: foam padding utilized Skin Protection: pulse oximeter probe site changed skin sealant/moisture barrier applied Head of Bed (HOB) Positioning: HOB at 30 degrees Problem: Mobility Impairment Goal: Optimal Mobility Outcome: Ongoing, Progressing Intervention: Optimize Mobility Flowsheets (Taken 03/25/20252348) Activity Management: activity adjusted per tolerance dorsiflexion/plantar flexion performed Positioning/Transfer Devices: repositioning sheet Problem: Fluid Volume Deficit Goal: Fluid Balance Outcome: Ongoing, Progressing Note: Monitor the inbcision sites for bleeding Intervention: Monitor and Manage Hypovolemia Flowsheets (Taken 03/25/20252348) Fluid/Electrolyte Management: fluids adjusted Problem: Lower Extremity Revascularization Goal: Absence of Bleeding Intervention: Monitor and Manage Bleeding Flowsheets (Taken 03/25/20252356) Bleeding Management: affected area elevated dressing monitored Goal: Effective Bowel Elimination Intervention: Enhance Bowel Motility and Elimination Flowsheets (Taken 03/25/20252356) Bowel Elimination Management: relaxation techniques promoted toileting offered Goal: Absence of Infection Signs and Symptoms Intervention: Prevent or Manage Infection Flowsheets (Taken 03/25/20252356) Infection Management: aseptic technique maintained Fever Reduction/Comfort Measures: lightweight clothing Goal: Effective Urinary Elimination Intervention: Monitor and Manage Urinary Retention Flowsheets (Taken 03/25/20252356) Urinary Elimination Promotion: frequent voiding encouraged positioned for ease of voiding Goal: Effective Oxygenation and Ventilation Intervention: Optimize Oxygenation and Ventilation Flowsheets (Taken 03/25/20252356) Head of Bed (HOB) Positioning: HOB at 30 degrees Goal: Effective Tissue Perfusion Intervention: Optimize Tissue Perfusion Flowsheets (Taken 03/25/20251999) Body Position: turned right * Significant Event - Surekha Shine MD - 03/25/2025 9:18 PM EDT Images from the original note were not included. [facility] Department of Surgery Division of Vascular Surgery Post Operative Check: Subjective: Procedure: Left lower extremity angiography, Selective catheterization of the left tibioperoneal trunk 3rd order, Percutaneous transluminal balloon angioplasty of the left femoral popliteal segment Patient currently reports he is doing well. He denies any pain. He denies nausea and vomiting. He has been able to tolerate some PO without difficulty. He has a blackwell catheter in place. He denies chest pain and shortness of breath. He has no other concerns at this time. Objective: Vitals: Vitals: 03/25/25 1903 BP: Pulse: 69 Resp: Temp: 36.9 ??C (98.4 ??F) SpO2: (!) 86% Physical Exam: GEN: No apparent distress. Resting comfortably in bed. NEURO: Awake, alert and oriented x3. No focal deficits. HENT: NCAT. Trachea appears midline. CV: Appears well-perfused. Normal rate. RESP: Symmetric chest rise. Non-labored breathing. On room air MSK: LLE is warm to the touch, intact motion and sensation, there is no tenderness to palpation SKIN: Warm and dry. Without pallor. Incisions: covered Labs: WBC 4.00 Hgb 14.7 PLT 170 HCT 43.2 INR 1.1 PTT ?? antiXa ?? Na 137 Cl 103 BUN 16 Gluc 107 (H) K 4.9 CO2 21 (L) Creat 0.84 Ca 9.2 iCa ?? Mg ?? Phos ?? pH ?? pCO2 ?? pO2 ?? SPO2 ?? FIO2 ?? HCO3 ?? BE ?? Lactate ?? AST ?? AlkPhos ?? T Prot ?? ALT ?? Bili ?? Alb ?? D.Bili ?? Assessment and Plan: Nicko Baumann is a 84 y.o. male who is recovering appropriately in the current post op period. Will continue to monitor. Diet: CLD Anticoagulation/DVT ppx: pLov and SubQ heparin Pain management: oxy, tylenol, celebrex Level of care: Continue Current Level of Care I have answered and addressed all issues and concerns from the patient and nursing staff. I have notified senior resident/attending application consultant with any issues or concerns. Surekha Shine MD General Surgery Resident * Anesthesia PACU Signout - Sung Cano MD - 03/25/2025 6:24 PM EDT Patient: Nicko Baumann Anesthesia Type: general Vitals Value Taken Time BP 127/59 03/25/25 18:15 Temp 36.8 ??C (98.2 ??F) 03/25/25 15:50 Pulse 71 03/25/25 18:23 Resp 20 03/25/25 18:23 SpO2 98 % 03/25/25 18:23 Vitals shown include unfiled device data. Anesthesia PACU Signout Patient location during evaluation: PACU Patient participation: complete - patient participated Level of consciousness: baseline and awake Pain management: adequate (pain score 0-3) Airway patency: natural airway Hydration status: acceptable PONV: none Cardiovascular status: acceptable and hemodynamically stable Respiratory status: acceptable, spontaneous ventilation, unassisted, nonlabored ventilation and nasal cannula Discharge Disposition: admit to inpatient unit Cosigned by Carole De Jesus MD at 03/25/2025 7:02 PM EDT Associated attestation - Carole De Jesus MD - 03/25/2025 7:02 PM EDT I agree with the findings and plan as documented. * Op Note - Cornell Solis MD - 03/25/2025 1:00 PM EDT Operative Note Date: 03/25/25 Location: [facility] Name: Nicko Baumann, : 1940, Diagnoses: Pre-op Diagnosis Ischemic ulcer, 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) Peripheral arterial disease Post-op Diagnosis Ischemic ulcer, 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) Peripheral arterial disease Procedure(s): Ultrasound-guided access of the right common femoral artery Left lower extremity angiography with radiologic supervision and interpretation Selective catheterization of the left tibioperoneal trunk 3rd order Percutaneous transluminal balloon angioplasty of the left femoral popliteal segment Attending Surgeon(s): * Fabián Salgado - Primary Html Web Developer(s): * Cornell Solis MD - Fellow * Koki Pruitt DO - Fellow Anesthesia: General ASA: III Blood Administration: Blood Product Administration History None Estimated Blood Loss: 100 cc Drains: Urethral Catheter Temperature probe 16 Fr. (Active) Indications: Nicko Baumann is an 84 y.o. male who is having surgery for Ischemic ulcer, 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) Peripheral arterial disease. Patient has critical limb threatening ischemia of the left lower extremity with a small nonhealing wound. Decision was made for endovascular revascularization. Risks of the procedure including bleeding, infection, damage to surrounding structures, loss of limb were all discussed with the patient. After understanding these risks, patient elected to proceed to the operating room. Narrative: Patient was laid supine on the operating room table. General anesthesia was induced and the patientwas intubated. Bilateral groins and left lower extremity were prepped and draped in the usual sterile fashion. A preoperative time-out was performed, preoperative antibiotics were administered, Foleycatheter was inserted, and SCD was placed on the right lower extremity. Using the ultrasound, the right common femoral artery was identified and noted to be patent and compressible. Under ultrasound guidance, the tip of the micro needle was visualized entering the lumen of the artery and a flash ofblood was noted. Micro wire and sheath were inserted followed by a 0.035 in glidewire advantage into the abdominal aorta. A short 5 Bulgarian sheath was inserted followed by an Omni flush catheter. Angiogram of the aortic bifurcation revealed no significant disease. The Omni flush catheter was placed in the left external iliac artery and left lower extremity angiography was performed. The patient had flush occlusion of the superficial femoral artery at its origin with reconstitution in the mid superficial femoral artery, and occlusion of the popliteal artery through all of its segments, with reconstitution at the anterior tibial artery/tibioperoneal trunk bifurcation. The patient had a patent anterior tibial artery and posterior tibial artery at the ankle with the occlusion of the peroneal artery in its mid to distal segments. The patient was systemically heparinized and ACT was maintained greater than 250 throughout the case. A 7 Bulgarian 65 cm destination sheath was placed into the patient's left common femoral artery and the occluded superficial femoral artery was entered. The sheath could not be advanced into the superficial femoral artery, so a 4 mm x 60 mm mustang balloon was used to perform angioplasty of the proximal segment allowing entry of the sheath into the occluded superficial femoral artery. A wire and catheter was used to cross the popliteal occlusion, but we could not re-enter into the true lumen of the tibioperoneal trunk or anterior tibial artery. Decision was made to attempt pedal access. Using the ultrasound the posterior tibial artery was identified at the flexor retinaculum. Multiple attempts were made to access the posterior tibial artery, but due to its small caliber and extensive calcifications we are unable to pass a wire of the posterior tibial artery. The decision was made to stopthe procedure and plan for open bypass surgery. The wire and sheath were removed from the right groin and pressure was held for 20 minutes. Patientwas administered protamine and hemostasis was assured. Dermabond was used to close the skin kristine inthe right groin. Patient was extubated and transferred to the PACU in stable condition. Please notethat Dr. Fabrizio Salgado was present for the entirety of this operation. There were NO signs of surgical site infection (SSI) present at the time of surgery (PATOS). Complications: None; patient tolerated the procedure well. Submitted by: Cornell Solis MD - 03/25/2025 Cosigned by Fabián Salgado MD at 03/29/2025 2:20 PM EDT * Interval H&P Note - Koki Pruitt DO - 03/25/2025 11:51 AM EDT H&P reviewed. The patient was examined and there are no changes to the H&P and the surgicalsite was marked. Source Note - Koki Pruitt DO - 03/17/2025 11:20 AM EDT Images from the original note were not included. Chief Complaint: CLTI, left lateral foot ischemic pressure wound Referring Physician: No ref. provider found HPI Patient is an 84 yo male with history of RA, CAD s/p CABG, right LEXI s/p R CEA, left LEXI, prostate cancer who presents with wounds to his left foot. ABIs from November demonstrated hemodynamically significant arterial inflow disease on the left, 0.32/0.49 PT/DP respectively. Right demonstrated medial calcinosis with pressures of 0.92/1.34. CTA obtained demonstrating largely left popliteal/tibial disease. Other than his wounds on his left foot, he denies any significant pain in his b/l LE. He deniessymptoms of claudication. He uses a walker to get around the house mostly for balance. He reports he doesn't walk much other than around the house. Unable to see his cardiology records but states he follows with a driver sales in [place] and hasseen them recently. He is currently taking aspirin. He is on a beta nataliia. He denies any chest pain or shortness of breath when walking. Vascular Surgery History: (Date - Procedure - Hospital - Doctor) None I personally and independently reviewed and interpreted the CT Images from today's visit which showed: As above. Stenosis/occlusion in the left popliteal. Disease extends into left AT but there is three vessel runoff I reviewed the following co-morbidities which are stable and controlled: Problem List[1] The following portions of the chart were reviewed this encounter and updated as appropriate: Subjective Additional Required PreOP H&P Elements: Past Medical History[2] Surgical History[3] Family History[4] Social History[5] Employer: No address on file. Travel History Relevant International Travel History: Travel Screening Question Response Have you been in contact with someone who was sick? No / Unsure Do you have any of the following new or worsening symptoms? None of these Have you traveled internationally or domestically in the last month? No Travel History Travel since 02/14/25 No documented travel since 02/14/25 Relevant Domestic Travel History: N/A Immunizations Reviewed VACCINE / DOSE Flu Tetanus Pneumovax Shingles Allergies Patient has no known allergies. Medications Current Medications[6] Review of Systems Constitutional: Negative for activity change, fatigue, fever and unexpected weight change. Respiratory: Negative for chest tightness, shortness of breath and wheezing. Cardiovascular: Negative for chest pain and palpitations. Gastrointestinal: Negative for abdominal distention and abdominal pain. Skin: Positive for wound. Negative for color change, pallor and rash. Neurological: Negative for dizziness, tremors, seizures, weakness, light- headedness and numbness. Objective Physical Exam Constitutional: well developed, well nourished, and in no acute distress. Presents using a walker today. Ears, Nose, Throat: normal atraumatic, no neck masses Respiratory: Normal expansion. Breathing on room air. No wheezing, no respiratory distress. Cardiac: Heart sounds are normal. Regular rate and rhythm Abdomen: Soft, non-tender Musculoskeletal: normal strength, tone, and muscle mass, no deformities Skin: [place], warm, well perfused. Small 5 mm wound to left lateral foot along 5th metatarsal and medial left foot along 1st metatarsal. No surrounding erythema or drainage. No gangrene. Vasc: palpable femoral arteries bilaterally Assessment/Plan In Summary: Nicko Baumann is a 84 y.o. year old male who we saw today in clinic. I discussed the test interpretations and management with associated orders of the following medical conditions of: Problem List Items Addressed This Visit Musculoskeletal Ischemic ulcer, 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) - Primary Other Visit Diagnoses Peripheral arterial disease ([facility]) Patient is booked for surgery on 03/25/25 . Plan for left lower extremity angiogram with right INSURANCE BILLING CLERK access with plan for possible angioplasty and stent. If unable to treat popliteal/AT disease via endovascular approach, will plan for left femoral to distal bypass with vein, possible graft day of. The risks, benefits, indications, contraindications, and surgical alternatives were explained to the patient. Specifically, the risks of surgery, including bleeding, infection, injury to nearby organs or structures, need for additional surgery or procedures, wound complications, and complications of general anesthesia. Commonly associated risks of the procedure where also discussed with the patient in detial. The patient participated in the discussion and was given an opportunity to ask questions. All questions where answered to the patient's verbal satisification. The patient perioperative anti-platelet, anti-coagulation, and overall perioperative medication plan were reviewed. Patient is on aspirin and will continue this. The patient was counseled on the importance of: - aspirin therapy for overall cardiovascular health - statin therapy for control of hyperlipidemia and plaque stabilization - blood pressure monitoring - proper nutrition, exercise and maintaining a healthy weight. Koki Pruitt DO Vascular Surgery Fellow [1] Patient Active Problem List Diagnosis ERIC (obstructive sleep apnea) CAD (coronary artery disease) Arthritis Limb ischemia Ischemic ulcer, 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) [2] Past Medical History: Diagnosis Date Coronary artery disease Hypertension [3] Past Surgical History: Procedure Laterality Date CORONARY ARTERY BYPASS GRAFT 2004 s/p 4v. CABG. LUMBAR LAMINECTOMY 09/03/2023 L2-5 LAMINECTOMY, SPINE, LUMBAR, FOR DECOMPRESSION (Spine Lumbar). [4] Family History Problem Relation Name Age of Onset Malig Hyperthermia Neg Hx Anesthesia problems Neg Hx [5] Social History Tobacco Use Smoking status: Former Average packs/day: 1 pack/day for 20.0 years (20.0 ttl pk-yrs) Types: Cigarettes Start date: 1954 Passive exposure: Never Smokeless tobacco: Never Vaping Use Vaping status: Never Used Substance Use Topics Alcohol use: Yes Comment: has an occ beer Drug use: Never [6] Current Outpatient Medications Medication Sig Dispense Refill ASPIRIN 81 MG chewable tablet Chew 1 tablet every morning. bicalutamide (Casodex) 50 MG chemo tablet Take 1 tablet (50 mg total) by mouth every morning. bisoprolol (Zebeta) 5 MG tablet Take 1 tablet by mouth every morning. CALCIUM CITRATE PO Take 200 mg by mouth every morning. celecoxib (CeleBREX) 100 MG capsule Take 1 capsule (100 mg) by mouth 2 (two) times a day. cholecalciferol (Vitamin D-3) 50 MCG (2000 UT) capsule Take 1 capsule by mouth every morning. Cyanocobalamin (VITAMIN B-12 PO) Take 1,000 mg by mouth 1 time each day with lunch. denosumab (Prolia) 60 MG/ML injection Inject 1 mL under the skin every 6 months. ferrous sulfate 325 (65 Fe) MG tablet Take 1 tablet by mouth daily with breakfast. furosemide (Lasix) 20 MG tablet Take 1 tablet by mouth every morning. leuprolide acetate, 6 Month, (Eligard) 45 MG injection Inject under the skin every 6 (six) months. melatonin 3 MG tablet Take 2 tablets (6 mg) by mouth at night if needed for sleep. 0 mupirocin (Bactroban) 2 % ointment Apply 1 Application topically 2 times a day. oxybutynin XL (Ditropan-XL) 10 MG 24 hr tablet Take 1 tablet by mouth every morning. predniSONE (Deltasone) 5 MG tablet Take 1 tablet by mouth every morning. pregabalin (Lyrica) 100 MG capsule Take 1 capsule by mouth 2 times a day. acetaminophen (Tylenol) 500 MG tablet Take 2 tablets (1,000 mg) by mouth every 8 (eight) hours. (Patient not taking: Reported on 03/17/2025) 100 tablet docusate sodium 100 MG capsule Take 100 mg by mouth 2 (two) times a day. (Patient not taking: Reported on 03/17/2025) levoFLOXacin (Levaquin) 500 MG tablet Take 1 tablet (500 mg) by mouth 1 (one) time each day. May restart if needed. (Patient not taking: Reported on 03/17/2025) ondansetron ODT (Zofran-ODT) 4 MG disintegrating tablet Take 1 tablet (4 mg) by mouth every 6 (six)hours if needed for nausea or vomiting. (Patient not taking: Reported on 03/17/2025) 20 tablet 0 polyethylene glycol (Miralax) 17 g packet Take 17 g by mouth 1 (one) time each day. (Patient not taking: Reported on 03/17/2025) prednisoLONE acetate (Pred-Forte) 1 % ophthalmic suspension (Patient not taking: Reported on 03/17/2025) Santyl 250 UNIT/GM ointment APPLY TOPICALLY TO THE AFFECTED AREA(S) DAILY NEEDED FOR wound care (Patient not taking: Reported on 03/17/2025) senna-docusate (Tiffanie-Colace) 8.6-50 MG tablet Take 1 tablet by mouth 2 (two) times a day. (Patient not taking: Reported on 03/17/2025) triamcinolone (Kenalog) 0.5 % cream apply topically to the affected area(s) twice daily (Patient not taking: Reported on 03/17/2025) No current facility-administered medications for this visit. Cosigned by Fabián Salgado MD at 03/22/2025 1:43 PM EDT * PAT Phone Note - Omayra Cárdenas RN - 03/23/2025 10:20 AM EDT HPI Nicko Baumann is a 84 y.o. male who presents with Pre-op Diagnosis * Ischemic ulcer, limited to breakdown of skin ([facility]) [L98.491] * Peripheral arterial disease [I73.9] now scheduled for Lower Extremity Angioplasty +/- Stent (Left), CREATION, BYPASS, ARTERIAL, FEMORAL TO POSTERIOR TIBIAL, PERONEAL, OR DORSALIS PEDIS (Left). Datescheduled is 03/25/2025. Family states no changes in health history since last reviewed on 12/21/2024 Past Medical History[1] Family History[2] Social History[3] SURGICAL HISTORY: Surgical History[4] Allergies[5] MEDICATIONS: Current Medications[6] Omayra Cárdenas RN [1] Past Medical History: Diagnosis Date Coronary artery disease Hypertension [2] Family History Problem Relation Name Age of Onset Malig Hyperthermia Neg Hx Anesthesia problems Neg Hx [3] Social History Tobacco Use Smoking status: Former Average packs/day: 1 pack/day for 20.0 years (20.0 ttl pk-yrs) Types: Cigarettes Start date: 1954 Passive exposure: Never Smokeless tobacco: Never Vaping Use Vaping status: Never Used Substance Use Topics Alcohol use: Yes Comment: has an occ beer Drug use: Never [4] Past Surgical History: Procedure Laterality Date CORONARY ARTERY BYPASS GRAFT 2004 s/p 4v. CABG. LUMBAR LAMINECTOMY 09/03/2023 L2-5 LAMINECTOMY, SPINE, LUMBAR, FOR DECOMPRESSION (Spine Lumbar). [5] No Known Allergies [6] No current facility-administered medications for this encounter. Current Outpatient Medications: aspirin, Chew 1 tablet every morning. bicalutamide, Take 1 tablet (50 mg total) by mouth every morning. bisoprolol, Take 1 tablet by mouth every morning. CALCIUM CITRATE PO, Take 200 mg by mouth every morning. celecoxib, Take 1 capsule (100 mg) by mouth 2 (two) times a day. cholecalciferol, Take 1 capsule by mouth every morning. Cyanocobalamin (VITAMIN B-12 PO), Take 1,000 mg by mouth 1 time each day with lunch. denosumab, Inject 1 mL under the skin every 6 months. ferrous sulfate, Take 1 tablet by mouth daily with breakfast. furosemide, Take 1 tablet by mouth every morning. leuprolide acetate (6 Month), Inject under the skin every 6 (six) months. oxybutynin XL, Take 1 tablet by mouth every morning. predniSONE, Take 1 tablet by mouth every morning. pregabalin, Take 1 capsule by mouth 2 times a day. acetaminophen, Take 2 tablets (1,000 mg) by mouth every 8 (eight) hours. (Patient not taking: Reported on 03/17/2025) docusate sodium, Take 100 mg by mouth 2 (two) times a day. (Patient not taking: Reported on 03/17/2025) levoFLOXacin, Take 1 tablet (500 mg) by mouth 1 (one) time each day. May restart if needed. (Patient not taking: Reported on 03/17/2025) melatonin, Take 2 tablets (6 mg) by mouth at night if needed for sleep. (Patient not taking: Reported on 03/23/2025) mupirocin, Apply 1 Application topically 2 times a day. (Patient not taking: Reported on 03/23/2025) ondansetron ODT, Take 1 tablet (4 mg) by mouth every 6 (six) hours if needed for nausea or vomiting. (Patient not taking: Reported on 03/17/2025) polyethylene glycol, Take 17 g by mouth 1 (one) time each day. (Patient not taking: Reported on 03/17/2025) prednisoLONE acetate, Santyl, APPLY TOPICALLY TO THE AFFECTED AREA(S) DAILY NEEDED FOR wound care (Patient not taking:Reported on 03/17/2025) senna-docusate, Take 1 tablet by mouth 2 (two) times a day. (Patient not taking: Reported on 03/17/2025) triamcinolone, apply topically to the affected area(s) twice daily (Patient not taking: Reported on03/17/2025) * Preprocedure Instructions - Omayra Cárdenas RN - 03/23/2025 10:11 AM EDT Home Medication Instructions Current Medications Medication Instructions ASPIRIN 81 MG chewable tablet Take morning of surgery bicalutamide (Casodex) 50 MG chemo tablet Take morning of surgery bisoprolol (Zebeta) 5 MG tablet Take morning of surgery CALCIUM CITRATE PO Hold day of surgery celecoxib (CeleBREX) 100 MG capsule Hold 3-5 days before surgery cholecalciferol (Vitamin D-3) 50 MCG (1999 UT) capsule Hold day of surgery Cyanocobalamin (VITAMIN B-12 PO) Hold day of surgery denosumab (Prolia) 60 MG/ML injection Take as prescribed ferrous sulfate 325 (65 Fe) MG tablet Hold day of surgery furosemide (Lasix) 20 MG tablet Hold day of surgery leuprolide acetate, 6 Month, (Eligard) 45 MG injection Take as prescribed oxybutynin XL (Ditropan-XL) 10 MG 24 hr tablet Take morning of surgery predniSONE (Deltasone) 5 MG tablet Take morning of surgery pregabalin (Lyrica) 100 MG capsule Take morning of surgery General Preoperative Instructions You will be called the business day before surgery with your arrival time Do not eat anything after midnight. Please hydrate well with clear liquids up to 2 hours prior to arrival for surgery (water, pedialyte, gatorade, apple juice). Nothing red, purple, blue or carbonated. No alcohol or smoking prior to surgery Arrive on time to avoid delays Parking/Registration procedure explained. Park at [address] Level 1 (Shuttle). [place] on the first floor of [facility]. You MUST have a responsible adult available for transport to and from hospital Visitation policy for the day of surgery reviewed Bring insurance card, photo ID, along with power of insurance attorney, guardianship or advanced directives if applicable Do not bring money, jewelry or other valuables. No lotion, deodorant, perfume, cologne or contact lenses.Hibiclens bathing instructions reviewed if applicable Notify surgeon of fever, illness, any changes or if you decide not to have surgery Diabetes Instructions (If applicable) Take diabetes medication as instructed You may have up to 4 ounces of apple juice 2 hours prior to arrival for surgery for low glucose documented in this encounter Plan of Treatment Upcoming Encounters Date Type Department Care Team (Late st Contact Info) Description 11/03/2025 12:00 PM EDT Appointment [facility] [address], [address] [address] 11/03/2025 1:00 PM EDT Appointment [facility] [address] [place] [address] [address], [address] [place] [address] 11/03/2025 2:20 PM EDT Office Visit [facility] [address] [place] [address], [address] [place] [address] Kana Maddox MD [id number] [place] [address] Pending Results Name Type Priority Associated Diagnoses Date /Time Prepare Leukocyte Reduced RBC: 2 Units Blood Bank STAT 03/25/2025 12:03 PM EDT Scheduled Referrals Name Type Priority Associated Diagnoses Order Schedule Discharge Ambulatory referral to Vascular Surgery Outpatient Referral Routine Ischemic ulcer, limited to breakdown of skin ([facility]) Limb ischemia Peripheral arterial disease Expected: 05/03/2025, Expires: 10/04/2026 documented as of this encounter Goals Goal Patient Goal Type Associated Problems Recent Progress Patient-Stated? Author Autogenera trevor Goal Care Plan Autogenerated Problem No Koki Pruitt DO documented as of this encounter Procedures Procedure Name Priority Date/Time Associated Diagnosis Comments CBC W/O DIFFERENTIAL Routine 04/02/2025 2:07 AM EDT PHOSPHORUS, PLASMA Routine 04/02/2025 2: 07 AM EDT MAGNESIUM, PLASMA Routine 04/02/2025 2:0 7 AM EDT COMPREHENSIVE METABOLIC PANEL, PLASMA Routine 04/02/2025 2:07 AM EDT MAGNESIUM, PLASMA Routine 04/01/2025 3:3 2 PM EDT RENAL FUNCTION PANEL, PLASMA Routine 04/01/2025 3:32 PM EDT OXYGEN THERAPY Routine 04/01/2025 8:00 AM EDT CBC W/O DIFFERENTIAL Routine 04/01/2025 2:56 AM EDT PHOSPHORUS, PLASMA Routine 04/01/2025 2: 56 AM EDT MAGNESIUM, PLASMA Routine 04/01/2025 2:5 6 AM EDT COMPREHENSIVE METABOLIC PANEL, PLASMA Routine 04/01/2025 2:56 AM EDT INSERT PERIPHERAL IV Routine 03/31/2025 8:41 PM EDT OXYGEN THERAPY Routine 03/31/2025 8:00 PM EDT POCT GLUCOSE METER UNSOLICITED RESULTS Routine 03/31/2025 6:11 PM EDT [place] [facility], E/M 30-74 MINUTES Routine 03/31/2025 10:54 AM EDT Peripheral arterial disease (CMS/HCC) Postoperative hypotension Ischemic ulcer, 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) History of prostate cancer Coronary artery disease involving assiniboine and sioux heart without angina pectoris, unspecified vessel or lesion type Electrolyte imbalance OXYGEN THERAPY Routine 03/31/2025 8:00 AM EDT PROTHROMBIN TIME(PT) / INR Routine 03/31/2025 12:04 AM EDT ANTI XA LEVEL UNFRACTIONATED HEPARIN STAT 03/31/2025 12:04 AM EDT CBC W/O DIFFERENTIAL Routine 03/31/2025 12:04 AM EDT MAGNESIUM, PLASMA Routine 03/31/2025 12:04 AM EDT OXYGEN THERAPY Routine 03/30/2025 8:00 PM EDT RENAL FUNCTION PANEL, PLASMA Routine 03/30/2025 7:00 PM EDT [place] [facility], E/M 30-74 MINUTES Routine 03/30/2025 6:27 PM EDT Peripheral arterial disease (CMS/HCC) Postoperative hypotension Ischemic ulcer, 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) Hypophosphatemia Hypomagnesemia History of prostate cancer Coronary artery disease involving assiniboine and sioux heart without angina pectoris, unspecified vessel or lesion type PROTHROMBIN TIME(PT) / INR Pending Discharge 03/30/2025 5:57 PM EDT ANTI XA LEVEL UNFRACTIONATED HEPARIN STAT 03/30/2025 5:57 PM EDT APTT Pending Discharge 03/30/2025 12:01 PM EDT PROTHROMBIN TIME(PT) / INR Pending Discharge 03/30/2025 12:01 PM EDT ANTI XA LEVEL UNFRACTIONATED HEPARIN Pending Discharge 03/30/2025 12:01 PM EDT CBC W/O DIFFERENTIAL Pending Discharge 03/30/2025 10:05 AM EDT HEMOGLOBIN AND HEMATOCRIT, BLOOD STAT 03/30/2025 9:36 AM EDT PLATELET COUNT, BLOOD Pending Discharge 03/30/2025 9:36 AM EDT HEMATOCRIT, BLOOD Pending Discharge 03/30/2025 9:36 AM EDT MAGNESIUM, PLASMA STAT 03/30/2025 9:3 6 AM EDT RENAL FUNCTION PANEL, PLASMA STAT 03/30/2025 9:36 AM EDT BLOOD GAS PANEL, ARTERIAL Pending Discharge 03/30/2025 9:32 AM EDT MADDIE AURIS SURVEILLANCE BY PCR Pending Discharge 03/30/2025 8:58 AM EDT OXYGEN THERAPY Routine 03/30/2025 8:00 AM EDT APTT Timed 03/30/2025 5:21 AM EDT PROTHROMBIN TIME(PT) / INR Timed 03/30/2025 5:21 AM EDT ANTI XA LEVEL UNFRACTIONATED HEPARIN Timed 03/30/2025 5:21 AM EDT PLATELET COUNT, BLOOD Timed 03/30/2025 5:21 AM EDT HEMATOCRIT, BLOOD Timed 03/30/2025 5:2 1 AM EDT PROTHROMBIN TIME(PT) / INR STAT 03/30/2025 12:28 AM EDT ANTI XA LEVEL UNFRACTIONATED HEPARIN STAT 03/30/2025 12:28 AM EDT CBC W/O DIFFERENTIAL STAT 03/30/2025 12:28 AM EDT APTT Timed 03/30/2025 12:01 AM EDT ANTI XA LEVEL UNFRACTIONATED HEPARIN Timed 03/30/2025 12:01 AM EDT PLATELET COUNT, BLOOD Timed 03/30/2025 12:01 AM EDT HEMATOCRIT, BLOOD Timed 03/30/2025 12:01 AM EDT OXYGEN THERAPY Routine 03/29/2025 8:00 PM EDT APTT Timed 03/29/2025 7:24 PM EDT PROTHROMBIN TIME(PT) / INR Timed 03/29/2025 7:24 PM EDT ANTI XA LEVEL UNFRACTIONATED HEPARIN Timed 03/29/2025 7:24 PM EDT CBC W/O DIFFERENTIAL Timed 03/29/2025 7:24 PM EDT BLOOD GAS PANEL, ARTERIAL STAT 03/29/2025 7:20 PM EDT FL LESS THAN 1 HOUR (NON-REPORTABLE) Routine 03/29/2025 6:30 PM EDT POCT ACT UNSOLICITED RESULTS Routine 03/29/2025 5:10 PM EDT POCT ACT UNSOLICITED RESULTS Routine 03/29/2025 4:25 PM EDT POCT ACT UNSOLICITED RESULTS Routine 03/29/2025 3:51 PM EDT BLOOD GAS PANEL, ARTERIAL STAT 03/29/2025 2:48 PM EDT REVASCULARIZATION, LOWER EXTREMITY 03/29/2025 1:14 PM EDT Peripheral arterial disease (CMS/HCC) TYPE AND SCREEN Routine 03/29/2025 10:52 AM EDT OXYGEN THERAPY Routine 03/29/2025 8:00 AM EDT ECHO, ADULT TRANSTHORACIC COMPLETE W/ CONTRAST Routine 03/29/2025 7:52 AM EDT CBC W/O DIFFERENTIAL Routine 03/29/2025 3:25 AM EDT PHOSPHORUS, PLASMA Routine 03/29/2025 3: 25 AM EDT MAGNESIUM, PLASMA Routine 03/29/2025 3:2 5 AM EDT BASIC METABOLIC PANEL, PLASMA Routine 03/29/2025 3:25 AM EDT OXYGEN THERAPY Routine 03/28/2025 8:00 PM EDT OXYGEN THERAPY Routine 03/28/2025 8:00 AM EDT CBC W/O DIFFERENTIAL Routine 03/28/2025 4:05 AM EDT EXTRA TUBE LIGHT GREEN TOP Routine 03/28/2025 3:59 AM EDT EXTRA TUBES Routine 03/28/2025 3:59 AM EDT OXYGEN THERAPY Routine 03/27/2025 8:00 PM EDT OXYGEN THERAPY Routine 03/27/2025 8:00 AM EDT OXYGEN THERAPY Routine 03/26/2025 8:00 PM EDT VAS US VENOUS DUPLEX LOWER EXTREMITY BILATERAL Timed 03/26/2025 8:07 AM EDT OXYGEN THERAPY Routine 03/26/2025 8:00 AM EDT CBC W/O DIFFERENTIAL Routine 03/26/2025 1:53 AM EDT HEMOGLOBIN A1C Add-On 03/26/2025 1:53 AM EDT BASIC METABOLIC PANEL, PLASMA Routine 03/26/2025 1:53 AM EDT ECG ADULT Routine 03/25/2025 8:10 PM EDT OXYGEN THERAPY Routine 03/25/2025 8:00 PM EDT WOUND OSTOMY EVAL AND TREAT Routine 03/25/2025 7:32 PM EDT FL LESS THAN 1 HOUR (NON-REPORTABLE) Routine 03/25/2025 3:34 PM EDT OXYGEN THERAPY Routine 03/25/2025 3:26 PM EDT OXYGEN THERAPY Routine 03/25/2025 3:26 PM EDT OXYGEN THERAPY Routine 03/25/2025 3:26 PM EDT POCT ACT UNSOLICITED RESULTS Routine 03/25/2025 2:18 PM EDT POCT ACT UNSOLICITED RESULTS Routine 03/25/2025 1:36 PM EDT [place] REVASCULARIZE ILIAC ARTERY,ANGIOPLASTY, INITIAL VESSEL 03/25/2025 12:05 PM EDT Ischemic ulcer, 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) Peripheral arterial disease (CMS/[facility]) PREPARE RBC STAT 03/25/2025 12:03 PM EDT PROTHROMBIN TIME(PT) / INR STAT 03/25/2025 11:28 AM EDT CBC W/O DIFFERENTIAL STAT 03/25/2025 11:28 AM EDT TYPE AND SCREEN Routine 03/25/2025 11:28 AM EDT BASIC METABOLIC PANEL, PLASMA Routine 03/25/2025 11:28 AM EDT documented in this encounter Results * VAS Ankle Brachial Index - Segmental (05/05/2025 2:35 PM EST) Anatomical Region Laterality Modality Vascular Ultrasound Impressions 05/05/2025 8:54 PM EST Right: The STATIONARY ENGINEER APPRENTICE and DPA are non-compressible at the ankle. 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 Toe pressures are 71mmHg. No significant change as compared to the previous study. Left: Segmental pressures are within normal limits. MEGAN pressures may be unreliable due to history of medial calcinosis. Toe pressures are 72 mmHg. This is a significant improvement as compared to the previous exam.. COMMUNICATION: Per this written report. Preliminary report signed by Reyna Diaz on 05/05/2025 4:31 PM By electronically signing this report, I, the attending physician, attest that I have personally reviewed the images/data for the above examination(s) and I agree with the final edited report. Drafted by Reyna Diaz on 05/05/2025 2:58 PM Final report signed by Harley Bell MD on 05/05/2025 8:54 PM Narrative 05/05/2025 8:54 PM EST CLINICAL INDICATION: Surveillance of bypass graft. TECHNIQUE: Non-invasive, continuous wave doppler exam with segmental pressures and spectral analysis of the lower extremity was performed. COMPARISON: Arterial duplex performed same day 05/05/2025. Prior exam performed on 12/15/2024. Rt: Non-compressible Lt: 0.49 FINDINGS: Technically difficult and limited exam due to patient movement incision site. Right: Multiphasic waveforms are demonstrated at the level of the INSURANCE BILLING CLERK (imaged on same day arterial duplex). Monophasic waveforms are demonstrated at the levels of the STATIONARY ENGINEER APPRENTICE and DPA. Vessels are non-compressible at the ankle, consistent with medial calcinosis. Toe pressure of 71 mmHg is obtained. Left: Unable to obtain INSURANCE BILLING CLERK waveform due to incision site. Monophasic waveforms are demonstrated at the DPA and STATIONARY ENGINEER APPRENTICE. Segmental pressures are within normal limits with a STATIONARY ENGINEER APPRENTICE MEGAN of 0.99 (151 mmHg) and a DPA MEGAN of 0.94 (144 mmHg). Digit pressures are 72 mmHg. Procedure Note Harley Bell MD - 05/05/2025 CLINICAL INDICATION: Surveillance of bypass graft. TECHNIQUE: Non-invasive, continuous wave doppler exam with segmental pressures andspectral analysis of the lower extremity was performed. COMPARISON: Arterial duplex performed same day 05/05/2025. Prior exam performed on 12/15/2024. Rt: Non-compressible Lt: 0.49 FINDINGS: Technically difficult and limited exam due to patient movement incisionsite. Right: Multiphasic waveforms are demonstrated at the level of the INSURANCE BILLING CLERK(imaged on same day arterial duplex). Monophasic waveforms aredemonstrated at the levels of the STATIONARY ENGINEER APPRENTICE and DPA. Vessels arenon-compressible at the ankle, consistent with medial calcinosis. Toepressure of 71 mmHg is obtained. Left: Unable to obtain INSURANCE BILLING CLERK waveform due to incision site. Monophasicwaveforms are demonstrated at the DPA and STATIONARY ENGINEER APPRENTICE. Segmental pressures arewithin normal limits with a STATIONARY ENGINEER APPRENTICE MEGAN of 0.99 (151 mmHg) and a DPA MEGAN of0.94 (144 mmHg). Digit pressures are 72 mmHg. IMPRESSION: Right: The STATIONARY ENGINEER APPRENTICE and DPA are non-compressible at the ankle. There isevidence for medial calcinosis. Toe pressures are 71mmHg. No significant change as compared to the previous study. Left: Segmental pressures are within normal limits. MEGAN pressures may beunreliable due to history of medial calcinosis. Toe pressures are 72 mmHg.This is a significant improvement as compared to the previous exam.. COMMUNICATION: Per this written report. Preliminary report signed by Reyna Diaz on 05/05/2025 4:31 PM By electronically signing this report, I, the attending physician, attestthat I have personally reviewed the images/data for the aboveexamination(s) and I agree with the final edited report. Drafted by Reyna Diaz on 05/05/2025 2:58 PM Final report signed by Harley Bell MD on 05/05/2025 8:54 PM us Kana Maddox MD CV VASCULAR PROCEDURES Fi nal Result * VAS US Arterial Duplex Lower Extremity Unilateral (05/05/2025 2:35 PM EST) Anatomical Region Laterality Modality Lower Extremities Ultrasound Impressions 05/05/2025 8:55 PM EST Left: Limited study: The femoral artery to posterior tibial artery PTFE bypass graft is patent with no areas of stenosis identified. COMMUNICATION: Per this written report. Preliminary report signed by Reyna Diaz on 05/05/2025 4:37 PM By electronically signing this report, I, the attending physician, attest that I have personally reviewed the images/data for the above examination(s) and I agree with the final edited report. Drafted by Reyna Diaz on 05/05/2025 2:36 PM Final report signed by Harley Bell MD on 05/05/2025 8:55 PM Narrative 05/05/2025 8:55 PM EST CLINICAL INDICATION: S/p femoral artery to posterior tibial artery PTFE BPG (03/29/2025. TECHNIQUE: Non-invasive, real time duplex exam of the lower extremity arterial circulation with Doppler ultrasonic waveform and spectral analysis was performed. COMPARISON: None. FINDINGS: RIGHT: Technically difficult and limited exam due to incision suture and patient movement. Unable to visualize the INSURANCE BILLING CLERK, PFA and proximal BPG anastomosis. Arterial duplex demonstrates monophasic waveforms throughout the entirety of the BPG and at the assinibo[place] and sioux STATIONARY ENGINEER APPRENTICE and DPA. The following flow velocities are recorded: Common femoral artery: not visualized. Profunda femoral artery: not visualized. INSURANCE BILLING CLERK to STATIONARY ENGINEER APPRENTICE PTFE BPG: Proximal thigh: 72 cm/s Mid thigh: 76 cm/s Distal thigh: 88 cm/s Pop fossa: 68 cm/s Distal pop fossa: 70 cm/s Prox calf: 66 cm/s Mid calf: 71 cm/s Mid calf (distal anastomosis): 74 cm/s Posterior tibial artery (distal to anastomosis): 164 cm/s Posterior tibial artery (mid calf): 166 cm/s Posterior tibial artery (distal calf): 72 cm/s Dorsalis pedis artery:38 cm/s LEFT: Arterial duplex demonstrates multiphasic waveforms in the common femoral, imaged for comparison purposes. The following flow velocities are recorded: Common femoral artery: 143 cm/s Procedure Note Harley Bell MD - 05/05/2025 CLINICAL INDICATION: S/p femoral artery to posterior tibial artery PTFE BPG (03/29/2025. TECHNIQUE: Non-invasive, real time duplex exam of the lower extremity arterialcirculation with Doppler ultrasonic waveform and spectral analysis wasperformed. COMPARISON: None. FINDINGS: RIGHT: Technically difficult and limited exam due to incision suture and patientmovement. Unable to visualize the INSURANCE BILLING CLERK, PFA and proximal BPG anastomosis. Arterial duplex demonstrates monophasic waveforms throughout the entiretyof the BPG and at the assiniboine and sioux STATIONARY ENGINEER APPRENTICE and DPA. The following flow velocitiesare recorded: Common femoral artery: not visualized. Profunda femoral artery: not visualized. INSURANCE BILLING CLERK to STATIONARY ENGINEER APPRENTICE PTFE BPG: Proximal thigh: 72 cm/s Mid thigh: 76 cm/s Distal thigh: 88 cm/s Pop fossa: 68 cm/s Distal pop fossa: 70 cm/s Prox calf: 66 cm/s Mid calf: 71 cm/s Mid calf (distal anastomosis): 74 cm/s Posterior tibial artery (distal to anastomosis): 164 cm/s Posterior tibial artery (mid calf): 166 cm/s Posterior tibial artery (distal calf): 72 cm/s Dorsalis pedis artery:38 cm/s LEFT: Arterial duplex demonstrates multiphasic waveforms in the common femoral,imaged for comparison purposes. The following flow velocities arerecorded: Common femoral artery: 143 cm/s IMPRESSION: Left: Limited study: The femoral artery to posterior tibial artery PTFEbypass graft is patent with no areas of stenosis identified. COMMUNICATION: Per this written report. Preliminary report signed by Reyna Diaz on 05/05/2025 4:37 PM By electronically signing this report, I, the attending physician, attestthat I have personally reviewed the images/data for the aboveexamination(s) and I agree with the final edited report. Drafted by Reyna Diaz on 05/05/2025 2:36 PM Final report signed by Harley Bell MD on 05/05/2025 8:55 PM us Kana Maddox MD CV VASCULAR PROCEDURES Fi nal Result * (ABNORMAL) Phosphorus (04/02/2025 2:07 AM EDT) Phosphorus, Plasma 1.8(L) 2.5 - 4.5 mg/dL 04/02/2025 2:45 AM EDT [facility] Blood Venous blood specimen / Unknown Venipuncture / Unknown 04/02/2025 2:07 AM EDT 04/02/2025 2:15 AM EDT us Roselyn Contreras FILTRATION OPERATOR LAB BLOOD ORDERABLES Final Res ult [facility] [address] [place] [address] * (ABNORMAL) Comprehensive metabolic panel (04/02/2025 2:07 AM EDT) Glucose, Plasma 128(H) 74 - 99 mg/dL 04/02/2025 2:45 AM EDT [facility] BUN, Plasma 11 8 - 23 mg/dL 04/02/2025 2:45 AM EDT [facility] Creatinine, Plasma 0.68(L) 0.70 - 1.20 mg/dL 04/02/2025 2:45 AM EDT [facility] BUN/Creatinine Ratio 16 04/02/2025 2:45 AM EDT [facility] Sodium, Plasma 141 136 - 145 mmol/L 04/02/2025 2:45 AM EDT [facility] Potassium, Plasma 3.7 3.6 - 4.9 mmol/L 04/02/2025 2:45 AM EDT [facility] Chloride, Plasma 108(H) 97 - 107 mmol/L 04/02/2025 2:45 AM EDT [facility] CO2, Plasma 22 22 - 29 mmol/L 04/02/2025 2:45 AM EDT [facility] Anion Gap 11 6 - 16 mmol/L 04/02/2025 2:45 AM EDT [facility] Total Calcium, Plasma 8.0(L) 8.9 - 10.2 mg/dL 04/02/2025 2:45 AM EDT [facility] Total Protein 5.6(L) 6.3 - 7.9 g/dL 04/02/2025 2:45 AM EDT [facility] Albumin, Plasma 2.7(L) 3.5 - 5.2 g/dL 04/02/2025 2:45 AM EDT [facility] AST, Plasma 30 10 - 50 U/L 04/02/2025 2:45 AM EDT [facility] ALT, Plasma 18 10 - 50 U/L 04/02/2025 2:45 AM EDT [facility] Alkaline Phosphatase, Plasma 53 40 - 115 U/L 04/02/2025 2:45 AM EDT [facility] Total Bilirubin, Plasma 0.5 0.2 - 1.1 mg/dL 04/02/2025 2:45 AM EDT [facility] eGFRcr 91.7 mL/min/1.7 3m*2 04/02/2025 2:45 AM EDT [facility] Comment:Reported eGFRcr in m L/min/1.73m2 is based the CKD-EPI 2020 equation that does not use a race coefficient. Blood Venous blood specimen / Unknown Venipuncture / Unknown 04/02/2025 2:07 AM EDT 04/02/2025 2:15 AM EDT us Roselyn Contreras FILTRATION OPERATOR LAB BLOOD ORDERABLES Final Res ult [facility] [address] [place] [address] * (ABNORMAL) CBC W/O Differential (04/02/2025 2:07 AM EDT) WBC Count 7.48 3.70 - 10.30 10*3/uL LAB HEMATOLOGY METHOD 04/02/2025 2:24 AM EDT [facility] RBC Count 3.10(L) 4.60 - 6.10 10*6/uL LAB HEMATOLOGY METHOD 04/02/2025 2:24 AM EDT [facility] HGB 9.1(L) 13.7 - 17.5 g/dL LAB HEMATOLOGY METHOD 04/02/2025 2:24 AM EDT [facility] HCT 27.4(L) 40.0 - 51.0 % LAB HEMATOLOGY METHOD 04/02/2025 2:24 AM EDT [facility] Platelet Count 181 155 - 369 10*3/uL LAB HEMATOLOGY METHOD 04/02/2025 2:24 AM EDT [facility] MCV 88 79 - 98 fL LAB HEMATOLOGY METHOD 04/02/2025 2:24 AM EDT [facility] MCH 29.4 26.0 - 32.0 pg LAB HEMATOLOGY METHOD 04/02/2025 2:24 AM EDT [facility] MCHC 33.2 30.7 - 35.5 g/dL LAB HEMATOLOGY METHOD 04/02/2025 2:24 AM EDT [facility] RDW 15.5(H) 11.5 - 14.5 % LAB HEMATOLOGY METHOD 04/02/2025 2:24 AM EDT [facility] MPV 9.8 8.8 - 12.5 fL LAB HEMATOLOGY METHOD 04/02/2025 2:24 AM EDT [facility] nRBC 0.3(H) <=0.0 per 100 WBCs LAB HEMATOLOGY METHOD 04/02/2025 2:24 AM EDT [facility] Blood Venous blood specimen / Unknown Venipuncture / Unknown 04/02/2025 2:07 AM EDT 04/02/2025 2:15 AM EDT Roselyn Contreras APRN LAB BLOOD ORDERABLES Final Res ult Performing Organization Address City/[facility]/ZIP Co de Phone Number [facility] [address] [place] [address] * Magnesium, Plasma (04/02/2025 2:07 AM EDT) Magnesium, Plasma 2.1 1.9 - 2.4 mg/dL 04/02/2025 2:45 AM EDT [facility] Blood Venous blood specimen / Unknown Venipuncture / Unknown 04/02/2025 2:07 AM EDT 04/02/2025 2:15 AM EDT Angelica Anderson APRN, SHREYAS LAB BLOOD ORDERABLES Final Result Performing Organization Address [facility]/ZIP Co de Phone Number [facility] [address] [place] [address] * Magnesium, Plasma (04/01/2025 3:32 PM EDT) Magnesium, Plasma 2.2 1.9 - 2.4 mg/dL 04/01/2025 4:28 PM EDT [facility] Blood Venous blood specimen / Unknown Venipuncture / Unknown 04/01/2025 3:32 PM EDT 04/01/2025 3:55 PM EDT Roselyn Contreras APRN LAB BLOOD ORDERABLES Final Res ult Performing Organization Address City/[facility]/ZIP Co de Phone Number [facility] [address] [place] [address] * (ABNORMAL) Renal Function Panel, Plasma (04/01/2025 3:32 PM EDT) Glucose, Plasma 173(H) 74 - 99 mg/dL 04/01/2025 4:28 PM EDT [facility] BUN, Plasma 12 8 - 23 mg/dL 04/01/2025 4:28 PM EDT [facility] Creatinine, Plasma 0.65(L) 0.70 - 1.20 mg/dL 04/01/2025 4:28 PM EDT [facility] BUN/Creatinine Ratio 18 04/01/2025 4:28 PM EDT [facility] Sodium, Plasma 136 136 - 145 mmol/L 04/01/2025 4:28 PM EDT [facility] Potassium, Plasma 5.4(H) 3.6 - 4.9 mmol/L 04/01/2025 4:28 PM EDT [facility] Comment:Hemolyzed, result ma y be falsely increased. Chloride, Plasma 105 97 - 107 mmol/L 04/01/2025 4:28 PM EDT [facility] CO2, Plasma 21(L) 22 - 29 mmol/L 04/01/2025 4:28 PM EDT [facility] Anion Gap 10 6 - 16 mmol/L 04/01/2025 4:28 PM EDT [facility] Total Calcium, Plasma 8.1(L) 8.9 - 10.2 mg/dL 04/01/2025 4:28 PM EDT [facility] Phosphorus, Plasma 2.1(L) 2.5 - 4.5 mg/dL 04/01/2025 4:28 PM EDT [facility] Albumin, Plasma 2.7(L) 3.5 - 5.2 g/dL 04/01/2025 4:28 PM EDT [facility] eGFRcr 92.9 mL/min/1.7 3m*2 04/01/2025 4:28 PM EDT [facility] Comment:Reported eGFRcr in m L/min/1.73m2 is based the CKD-EPI 2020 equation that does not use a race coefficient. Blood Venous blood specimen / Unknown Venipuncture / Unknown 04/01/2025 3:32 PM EDT 04/01/2025 3:55 PM EDT us Roselyn Contreras FILTRATION OPERATOR LAB BLOOD ORDERABLES Final Res ult [facility] [address] [place] [address] * (ABNORMAL) Phosphorus (04/01/2025 2:56 AM EDT) Phosphorus, Plasma 1.1(L) 2.5 - 4.5 mg/dL 04/01/2025 3:41 AM EDT [facility] Blood Venous blood specimen / Unknown Venipuncture / Unknown 04/01/2025 2:56 AM EDT 04/01/2025 3:08 AM EDT us Roselyn Contreras FILTRATION OPERATOR LAB BLOOD ORDERABLES Final Res ult [facility] [address] [place] [address] * (ABNORMAL) Comprehensive metabolic panel (04/01/2025 2:56 AM EDT) Glucose, Plasma 114(H) 74 - 99 mg/dL 04/01/2025 3:41 AM EDT [facility] BUN, Plasma 12 8 - 23 mg/dL 04/01/2025 3:41 AM EDT [facility] Creatinine, Plasma 0.69(L) 0.70 - 1.20 mg/dL 04/01/2025 3:41 AM EDT [facility] BUN/Creatinine Ratio 17 04/01/2025 3:41 AM EDT [facility] Sodium, Plasma 139 136 - 145 mmol/L 04/01/2025 3:41 AM EDT [facility] Potassium, Plasma 3.5(L) 3.6 - 4.9 mmol/L 04/01/2025 3:41 AM EDT [facility] Chloride, Plasma 107 97 - 107 mmol/L 04/01/2025 3:41 AM EDT [facility] CO2, Plasma 21(L) 22 - 29 mmol/L 04/01/2025 3:41 AM EDT [facility] Anion Gap 11 6 - 16 mmol/L 04/01/2025 3:41 AM EDT [facility] Total Calcium, Plasma 7.8(L) 8.9 - 10.2 mg/dL 04/01/2025 3:41 AM EDT [facility] Total Protein 5.2(L) 6.3 - 7.9 g/dL 04/01/2025 3:41 AM EDT [facility] Albumin, Plasma 2.6(L) 3.5 - 5.2 g/dL 04/01/2025 3:41 AM EDT [facility] AST, Plasma 23 10 - 50 U/L 04/01/2025 3:41 AM EDT [facility] ALT, Plasma 13 10 - 50 U/L 04/01/2025 3:41 AM EDT [facility] Alkaline Phosphatase, Plasma 41 40 - 115 U/L 04/01/2025 3:41 AM EDT [facility] Total Bilirubin, Plasma 0.4 0.2 - 1.1 mg/dL 04/01/2025 3:41 AM EDT [facility] eGFRcr 91.3 mL/min/1.7 3m*2 04/01/2025 3:41 AM EDT [facility] Comment:Reported eGFRcr in m L/min/1.73m2 is based the CKD-EPI 2020 equation that does not use a race coefficient. Blood Venous blood specimen / Unknown Venipuncture / Unknown 04/01/2025 2:56 AM EDT 04/01/2025 3:08 AM EDT us Roselyn Contreras FILTRATION OPERATOR LAB BLOOD ORDERABLES Final Res ult [facility] [address] [place] [address] * (ABNORMAL) CBC W/O Differential (04/01/2025 2:56 AM EDT) WBC Count 6.35 3.70 - 10.30 10*3/uL LAB HEMATOLOGY METHOD 04/01/2025 3:17 AM EDT [facility] RBC Count 3.12(L) 4.60 - 6.10 10*6/uL LAB HEMATOLOGY METHOD 04/01/2025 3:17 AM EDT [facility] HGB 9.3(L) 13.7 - 17.5 g/dL LAB HEMATOLOGY METHOD 04/01/2025 3:17 AM EDT [facility] HCT 27.2(L) 40.0 - 51.0 % LAB HEMATOLOGY METHOD 04/01/2025 3:17 AM EDT [facility] Platelet Count 150(L) 155 - 369 10*3/uL LAB HEMATOLOGY METHOD 04/01/2025 3:17 AM EDT [facility] MCV 87 79 - 98 fL LAB HEMATOLOGY METHOD 04/01/2025 3:17 AM EDT [facility] MCH 29.8 26.0 - 32.0 pg LAB HEMATOLOGY METHOD 04/01/2025 3:17 AM EDT [facility] MCHC 34.2 30.7 - 35.5 g/dL LAB HEMATOLOGY METHOD 04/01/2025 3:17 AM EDT [facility] RDW 15.1(H) 11.5 - 14.5 % LAB HEMATOLOGY METHOD 04/01/2025 3:17 AM EDT [facility] MPV 9.9 8.8 - 12.5 fL LAB HEMATOLOGY METHOD 04/01/2025 3:17 AM EDT [facility] nRBC 0.0 <=0.0 per 100 WBCs LAB HEMATOLOGY METHOD 04/01/2025 3:17 AM EDT [facility] Blood Venous blood specimen / Unknown Venipuncture / Unknown 04/01/2025 2:56 AM EDT 04/01/2025 3:08 AM EDT us Roselyn Contreras FILTRATION OPERATOR LAB BLOOD ORDERABLES Final Res ult [facility] [address] [place] [address] * Magnesium, Plasma (04/01/2025 2:56 AM EDT) Magnesium, Plasma 2.0 1.9 - 2.4 mg/dL 04/01/2025 3:41 AM EDT [facility] Blood Venous blood specimen / Unknown Venipuncture / Unknown 04/01/2025 2:56 AM EDT 04/01/2025 3:08 AM EDT us Angelica Anderson APRN, DNP LAB BLOOD ORDERABLES Final Result [facility] [address] [place] [address] * PERIPHERAL IV (SMARTFORM LINK) (03/31/2025 8:41 PM EDT) Narrative Fareed Diaz RN - 03/31/2025 8:41 PM EDT Fareed Diaz RN 03/31/2025 8:41 PM Insert peripheral IV Performed by: Fareed Diaz RN Authorized by: Rolando Lynch MD Hand hygiene: Hand hygiene performed prior to insertion Inserted using aseptic techniques: Yes Preparation: Skin prepped with chg Orientation: Left Location: Forearm Catheter placed: Peripheral IV Catheter size: 20g/2.00in Line Technique: Ultrasound Guidance Number of attempts: 1 IV flushes: Without difficulty and positive blood return noted and IV luer locked Patient tolerance: Patient tolerated the procedure well and there were no complications Patient comfort measures used: Distraction and position of comfort IV site covered with: Transparent semipermeable dressing Rolando Lynch MD IV THERAPY ORDERABLES Final R esult * (ABNORMAL) POCT glucose meter (03/31/2025 6:11 PM EDT) [facility] POCT Glucose 110(H) 74 - 99 mg/dL 03/31/2025 6:13 PM EDT [facility] Comment:Accuracy of a glucos e result obtained from a capillary whole blood specimen relies upon adequate, non-compromised capillary blood flow. If the capillary glucose result is not consistent with the patient's clinical signs and symptoms, glucose testing should be repeated with either an arterial or venous sample on the glucometer or sent to the main labortory for testing. Comment 03/31/2025 6:13 PM EDT [facility] Chemical Plant Operator Supervisor ID Tsering Marie 03/31/2025 6:13 PM EDT [facility] Device ID [id number] 03/31/2025 6:13 PM EDT [facility] Specimen Type POC Capillary 03/31/2025 6:13 PM EDT [facility] Blood Capillary blood specimen / Unknown 03/31/2025 6:11 PM EDT 03/31/2025 6:13 PM EDT Rolando Lynch MD LAB POINT OF CARE TE ST DOCKED DEVICE UNSOLICITED RESULTS Final Result Performing Organization Address City/[facility]/ZIP Co de Phone Number [facility] [address] [place] [address] * [place] [facility], E/M 30-74 MINUTES (03/31/2025 10:54 AM EDT) Narrative Roselyn Contreras APRN - 03/31/2025 10:54 AM EDT Roselyn Contreras APRN 03/31/2025 5:46 PM Critical Care Performed by: Roselyn Contreras APRN Authorized by: Roselyn Contreras APRN Critical care provider statement: Critical care time (minutes): 65 Critical care time was exclusive of: Teaching time Critical care was time spent personally by me on the following activities: Discussions with consultants, evaluation of patient's response to treatment, examination of patient, ordering and performing treatments and interventions, ordering and review of laboratory studies and review of old charts Roselyn Contreras APRN IN CLINIC/BEDSIDE ORDERABLES F inal Result * Anti Xa Level Unfractionated Heparin - Heparin Drip Titration (03/31/2025 12:04 AM EDT) Anti Xa Level Unfractionated Heparin 0.52 <1.00 IU/mL LAB COAGULATION METHOD 03/31/2025 1:05 AM EDT [facility] Blood Venous blood specimen / Unknown Venipuncture / Unknown 03/31/2025 12:04 AM EDT 03/31/2025 12:12 AM EDT Narrative [facility] - 03/31/2025 1:05 AM EDT Therapeutic Range: UFH Full Dose and ACS/NH protocols*: 0.30 - 0.70 IU/mL UFH Low Dose protocol*: 0.25 - 0.50 IU/mL UFH prophylaxis: Not established Rolando Lynch MD LAB BLOOD ORDERABLES Final Re sult [facility] [address] [place] [address] * Magnesium, Plasma (03/31/2025 12:04 AM EDT) Magnesium, Plasma 2.1 1.9 - 2.4 mg/dL 03/31/2025 12:33 AM EDT [facility] Blood Venous blood specimen / Unknown Venipuncture / Unknown 03/31/2025 12:04 AM EDT 03/31/2025 12:11 AM EDT Angelica Anderson FILTRATION OPERATOR, DNP LAB BLOOD ORDERABLES Final Result [facility] [address] [place] [address] * (ABNORMAL) CBC W/O differential - HIT surveillance (03/31/2025 12:04 AM EDT) WBC Count 7.17 3.70 - 10.30 10*3/uL LAB HEMATOLOGY METHOD 03/31/2025 12:22 AM EDT [facility] RBC Count 3.33(L) 4.60 - 6.10 10*6/uL LAB HEMATOLOGY METHOD 03/31/2025 12:22 AM EDT [facility] HGB 9.9(L) 13.7 - 17.5 g/dL LAB HEMATOLOGY METHOD 03/31/2025 12:22 AM EDT [facility] HCT 29.1(L) 40.0 - 51.0 % LAB HEMATOLOGY METHOD 03/31/2025 12:22 AM EDT [facility] Platelet Count 164 155 - 369 10*3/uL LAB HEMATOLOGY METHOD 03/31/2025 12:22 AM EDT [facility] MCV 87 79 - 98 fL LAB HEMATOLOGY METHOD 03/31/2025 12:22 AM EDT [facility] MCH 29.7 26.0 - 32.0 pg LAB HEMATOLOGY METHOD 03/31/2025 12:22 AM EDT [facility] MCHC 34.0 30.7 - 35.5 g/dL LAB HEMATOLOGY METHOD 03/31/2025 12:22 AM EDT [facility] RDW 15.0(H) 11.5 - 14.5 % LAB HEMATOLOGY METHOD 03/31/2025 12:22 AM EDT [facility] MPV 10.3 8.8 - 12.5 fL LAB HEMATOLOGY METHOD 03/31/2025 12:22 AM EDT [facility] nRBC 0.0 <=0.0 per 100 WBCs LAB HEMATOLOGY METHOD 03/31/2025 12:22 AM EDT [facility] Blood Venous blood specimen / Unknown Venipuncture / Unknown 03/31/2025 12:04 AM EDT 03/31/2025 12:12 AM EDT us Rolando Lynch MD LAB BLOOD ORDERABLES Final Re sult Performing Organization Address City/[facility]/ZIP Co de Phone Number [facility] [address] [place] [address] * (ABNORMAL) Protime-INR (03/31/2025 12:04 AM EDT) Prothrombin Time 18.6(H) 12.0 - 14.3 sec LAB COAGULATION METHOD 03/31/2025 1:05 AM EDT [facility] INR 1.5(H) 0.9 - 1.1 LAB COAGULATION METHOD 03/31/2025 1:05 AM EDT [facility] Blood Venous blood specimen / Unknown Venipuncture / Unknown 03/31/2025 12:04 AM EDT 03/31/2025 12:12 AM EDT Narrative [facility] - 03/31/2025 1:05 AM EDT OPTIMAL INR RANGES FOR PATIENT ON ORAL ANTICOAGULANT THERAPY Prevention of venous thromboembolism INR 2.0 to 3.0 In patients with heart disease: Atrial fibrillation INR 2.0 to 3.0 Valvular heart disease INR 2.0 to 3.0 Tissue heart valves INR 2.0 to 3.0 Mechanical prosthetic valves INR 2.5 to 3.5 Prevention of recurrent NH INR 2.5 to 3.5 us Angelica Anderson APRN, DNP LAB BLOOD ORDERABLES Final Result Performing Organization Address City/[facility]/ZIP Co de Phone Number [facility] [address] [place] [address] * (ABNORMAL) Renal Function Panel, Plasma (03/30/2025 7:00 PM EDT) Glucose, Plasma 156(H) 74 - 99 mg/dL 03/30/2025 7:45 PM EDT [facility] BUN, Plasma 16 8 - 23 mg/dL 03/30/2025 7:45 PM EDT [facility] Creatinine, Plasma 0.83 0.70 - 1.20 mg/dL 03/30/2025 7:45 PM EDT [facility] BUN/Creatinine Ratio 19 03/30/2025 7:45 PM EDT [facility] Sodium, Plasma 141 136 - 145 mmol/L 03/30/2025 7:45 PM EDT [facility] Potassium, Plasma 3.9 3.6 - 4.9 mmol/L 03/30/2025 7:45 PM EDT [facility] Chloride, Plasma 106 97 - 107 mmol/L 03/30/2025 7:45 PM EDT [facility] CO2, Plasma 22 22 - 29 mmol/L 03/30/2025 7:45 PM EDT [facility] Anion Gap 13 6 - 16 mmol/L 03/30/2025 7:45 PM EDT [facility] Total Calcium, Plasma 8.1(L) 8.9 - 10.2 mg/dL 03/30/2025 7:45 PM EDT [facility] Phosphorus, Plasma 3.7 2.5 - 4.5 mg/dL 03/30/2025 7:45 PM EDT [facility] Albumin, Plasma 2.9(L) 3.5 - 5.2 g/dL 03/30/2025 7:45 PM EDT [facility] eGFRcr 86.3 mL/min/1.7 3m*2 03/30/2025 7:45 PM EDT [facility] Comment:Reported eGFRcr in m L/min/1.73m2 is based the CKD-EPI 2020 equation that does not use a race coefficient. Blood Venous blood specimen / Unknown Venipuncture / Unknown 03/30/2025 7:00 PM EDT 03/30/2025 7:14 PM EDT us Angelica Anderson APRN, DNP LAB BLOOD ORDERABLES Final Result Performing Organization Address City/[facility]/ZIP Co de Phone Number [facility] [address] [place] [address] * [place] [facility], E/M 30-74 MINUTES (03/30/2025 6:27 PM EDT) Narrative Angelica Anderson APRN, DNP - 03/30/2025 6:27 PM EDT Angelica Anderson APRN, DNP 03/30/2025 7:02 PM Critical Care Performed by: Angelica Anderson APRN, DNP Authorized by: Angelica Anderson APRN, DNP Critical care provider statement: Critical care time (minutes): 44 Critical care time was exclusive of: Separately billable procedures and treating other patients and teaching time Critical care was time spent personally by me on the following activities: Development of treatment plan with patient or surrogate, discussions with consultants, evaluation of patient's response to treatment, examination of patient, obtaining history from patient or surrogate, ordering and review of laboratory studies and ordering and performing treatments and interventions us Angelica Anderson APRN, DNP IN CLINIC/BEDSIDE OR DERABLES Final Result * Anti Xa Level Unfractionated Heparin - Heparin Drip Titration (03/30/2025 5:57 PM EDT) Anti Xa Level Unfractionated Heparin 0.49 <1.00 IU/mL LAB COAGULATION METHOD 03/30/2025 6:47 PM EDT [facility] Blood Venous blood specimen / Unknown Venipuncture / Unknown 03/30/2025 5:57 PM EDT 03/30/2025 6:10 PM EDT Narrative [facility] - 03/30/2025 6:47 PM EDT Therapeutic Range: UFH Full Dose and ACS/NH protocols*: 0.30 - 0.70 IU/mL UFH Low Dose protocol*: 0.25 - 0.50 IU/mL UFH prophylaxis: Not established us Rolando Lynch MD LAB BLOOD ORDERABLES Final Re sult Performing Organization Address City/[facility]/ZIP Co de Phone Number [facility] [address] [place] [address] * (ABNORMAL) Protime-INR (03/30/2025 5:57 PM EDT) Prothrombin Time 18.0(H) 12.0 - 14.3 sec LAB COAGULATION METHOD 03/30/2025 6:46 PM EDT [facility] INR 1.5(H) 0.9 - 1.1 LAB COAGULATION METHOD 03/30/2025 6:46 PM EDT [facility] Blood Venous blood specimen / Unknown Venipuncture / Unknown 03/30/2025 5:57 PM EDT 03/30/2025 6:10 PM EDT Narrative [facility] - 03/30/2025 6:46 PM EDT OPTIMAL INR RANGES FOR PATIENT ON ORAL ANTICOAGULANT THERAPY Prevention of venous thromboembolism INR 2.0 to 3.0 In patients with heart disease: Atrial fibrillation INR 2.0 to 3.0 Valvular heart disease INR 2.0 to 3.0 Tissue heart valves INR 2.0 to 3.0 Mechanical prosthetic valves INR 2.5 to 3.5 Prevention of recurrent NH INR 2.5 to 3.5 Fabián Salgado MD LAB BLOOD ORDERABLES Final Res ult [facility] [address] [place] [address] * Anti Xa Level Unfractionated Heparin (03/30/2025 12:01 PM EDT) Anti Xa Level Unfractionated Heparin 0.47 <1.00 IU/mL LAB COAGULATION METHOD 03/30/2025 12:35 PM EDT [facility] Blood Venous blood specimen / Unknown Venipuncture / Unknown 03/30/2025 12:01 PM EDT 03/30/2025 12:09 PM EDT Narrative [facility] - 03/30/2025 12:35 PM EDT Therapeutic Range: UFH Full Dose and ACS/NH protocols*: 0.30 - 0.70 IU/mL UFH Low Dose protocol*: 0.25 - 0.50 IU/mL UFH prophylaxis: Not established Fabián Salgado MD LAB BLOOD ORDERABLES Final Res ult [facility] [address] [place] [address] * (ABNORMAL) APTT (03/30/2025 12:01 PM EDT) aPTT 125(HH) 25 - 35 sec LAB COAGULATION METHOD 03/30/2025 12:35 PM EDT [facility] Blood Venous blood specimen / Unknown Venipuncture / Unknown 03/30/2025 12:01 PM EDT 03/30/2025 12:09 PM EDT Fabián Salgado MD LAB BLOOD ORDERABLES Final Res ult Performing Organization Address [facility] Co de Phone Number [facility] [address] [place] [address] * (ABNORMAL) Protime-INR (03/30/2025 12:01 PM EDT) Prothrombin Time 17.0(H) 12.0 - 14.3 sec LAB COAGULATION METHOD 03/30/2025 12:35 PM EDT [facility] INR 1.4(H) 0.9 - 1.1 LAB COAGULATION METHOD 03/30/2025 12:35 PM EDT [facility] Blood Venous blood specimen / Unknown Venipuncture / Unknown 03/30/2025 12:01 PM EDT 03/30/2025 12:09 PM EDT Narrative [facility] - 03/30/2025 12:35 PM EDT OPTIMAL INR RANGES FOR PATIENT ON ORAL ANTICOAGULANT THERAPY Prevention of venous thromboembolism INR 2.0 to 3.0 In patients with heart disease: Atrial fibrillation INR 2.0 to 3.0 Valvular heart disease INR 2.0 to 3.0 Tissue heart valves INR 2.0 to 3.0 Mechanical prosthetic valves INR 2.5 to 3.5 Prevention of recurrent NH INR 2.5 to 3.5 us Fabián Salgado MD LAB BLOOD ORDERABLES Final Res ult Performing Organization Address [facility]/ZIP Co de Phone Number [facility] [address] [place] [address] * (ABNORMAL) CBC W/O Differential (03/30/2025 10:05 AM EDT) WBC Count 5.69 3.70 - 10.30 10*3/uL LAB HEMATOLOGY METHOD 03/30/2025 10:05 AM EDT [facility] RBC Count 3.58(L) 4.60 - 6.10 10*6/uL LAB HEMATOLOGY METHOD 03/30/2025 10:05 AM EDT [facility] HGB 10.8(L) 13.7 - 17.5 g/dL LAB HEMATOLOGY METHOD 03/30/2025 10:05 AM EDT [facility] HCT 31.4(L) 40.0 - 51.0 % LAB HEMATOLOGY METHOD 03/30/2025 10:05 AM EDT [facility] Platelet Count 175 155 - 369 10*3/uL LAB HEMATOLOGY METHOD 03/30/2025 10:05 AM EDT [facility] MCV 88 79 - 98 fL LAB HEMATOLOGY METHOD 03/30/2025 10:05 AM EDT [facility] MCH 30.2 26.0 - 32.0 pg LAB HEMATOLOGY METHOD 03/30/2025 10:05 AM EDT [facility] MCHC 34.4 30.7 - 35.5 g/dL LAB HEMATOLOGY METHOD 03/30/2025 10:05 AM EDT [facility] RDW 14.7(H) 11.5 - 14.5 % LAB HEMATOLOGY METHOD 03/30/2025 10:05 AM EDT [facility] MPV 10.2 8.8 - 12.5 fL LAB HEMATOLOGY METHOD 03/30/2025 10:05 AM EDT [facility] nRBC 0.0 <=0.0 per 100 WBCs LAB HEMATOLOGY METHOD 03/30/2025 10:05 AM EDT [facility] Blood Venous blood specimen / Unknown 03/30/2025 9:58 AM EDT us Rolando Lynch MD LAB BLOOD ORDERABLES Final Re sult [facility] [address] [place] [address] * (ABNORMAL) Hemoglobin and Hematocrit, Blood (03/30/2025 9:36 AM EDT) HGB 10.5(L) 13.7 - 17.5 g/dL LAB HEMATOLOGY METHOD 03/30/2025 10:08 AM EDT [facility] HCT 30.9(L) 40.0 - 51.0 % LAB HEMATOLOGY METHOD 03/30/2025 10:08 AM EDT [facility] Blood Venous blood specimen / Unknown Venipuncture / Unknown 03/30/2025 9:36 AM EDT 03/30/2025 9:59 AM EDT Angelica Anderson APRN, DNP LAB BLOOD ORDERABLES Final Result Performing Organization Address City/[facility]/ZIP Co de Phone Number [facility] [address] [place] [address] * (ABNORMAL) Magnesium (03/30/2025 9:36 AM EDT) Magnesium, Plasma 1.8(L) 1.9 - 2.4 mg/dL 03/30/2025 10:21 AM EDT [facility] Blood Arterial blood specimen / Unknown Arterial Puncture / Unknown 03/30/2025 9:36 AM EDT 03/30/2025 9:50 AM EDT Angelica Anderson APRN, DNP LAB BLOOD ORDERABLES Final Result Performing Organization Address City/[facility]/ZIP Co de Phone Number [facility] [address] [place] [address] * (ABNORMAL) Renal function panel (03/30/2025 9:36 AM EDT) Glucose, Plasma 162(H) 74 - 99 mg/dL 03/30/2025 10:21 AM EDT [facility] BUN, Plasma 17 8 - 23 mg/dL 03/30/2025 10:21 AM EDT [facility] Creatinine, Plasma 0.90 0.70 - 1.20 mg/dL 03/30/2025 10:21 AM EDT [facility] BUN/Creatinine Ratio 19 03/30/2025 10:21 AM EDT [facility] Sodium, Plasma 137 136 - 145 mmol/L 03/30/2025 10:21 AM EDT [facility] Potassium, Plasma 4.3 3.6 - 4.9 mmol/L 03/30/2025 10:21 AM EDT [facility] Chloride, Plasma 104 97 - 107 mmol/L 03/30/2025 10:21 AM EDT [facility] CO2, Plasma 22 22 - 29 mmol/L 03/30/2025 10:21 AM EDT [facility] Anion Gap 11 6 - 16 mmol/L 03/30/2025 10:21 AM EDT [facility] Total Calcium, Plasma 7.8(L) 8.9 - 10.2 mg/dL 03/30/2025 10:21 AM EDT [facility] Phosphorus, Plasma 1.4(L) 2.5 - 4.5 mg/dL 03/30/2025 10:21 AM EDT [facility] Albumin, Plasma 2.9(L) 3.5 - 5.2 g/dL 03/30/2025 10:21 AM EDT [facility] eGFRcr 84.2 mL/min/1.7 3m*2 03/30/2025 10:21 AM EDT [facility] Comment:Reported eGFRcr in m L/min/1.73m2 is based the CKD-EPI 2020 equation that does not use a race coefficient. Blood Arterial blood specimen / Unknown Arterial Puncture / Unknown 03/30/2025 9:36 AM EDT 03/30/2025 9:50 AM EDT Angelica Anderson FILTRATION OPERATOR, DNP LAB BLOOD ORDERABLES Final Result [facility] [address] [place] [place] [address] * Platelet count (03/30/2025 9:36 AM EDT) Platelet Count 177 155 - 369 10*3/uL LAB HEMATOLOGY METHOD 03/30/2025 10:08 AM EDT [facility] Blood Venous blood specimen / Unknown Venipuncture / Unknown 03/30/2025 9:36 AM EDT 03/30/2025 9:59 AM EDT us Fabián Salgado MD LAB BLOOD ORDERABLES Final Res ult Performing Organization Address City/[facility]/ZIP Co de Phone Number [facility] [address] [place] [address] * (ABNORMAL) Hematocrit (03/30/2025 9:36 AM EDT) HCT 30.9(L) 40.0 - 51.0 % LAB HEMATOLOGY METHOD 03/30/2025 10:08 AM EDT [facility] Blood Venous blood specimen / Unknown Venipuncture / Unknown 03/30/2025 9:36 AM EDT 03/30/2025 9:59 AM EDT us Fabián Salgado MD LAB BLOOD ORDERABLES Final Res ult Performing Organization Address [facility] Co de Phone Number [facility] [address] [place] [address] * (ABNORMAL) Blood gas panel, arterial (03/30/2025 9:32 AM EDT) pH, Arterial 7.43(H) 7.31 - 7.42 LAB HEMATOLOGY METHOD 03/30/2025 9:41 AM EDT [facility] pCO2, Arterial 39 32 - 45 mmHg LAB HEMATOLOGY METHOD 03/30/2025 9:41 AM EDT [facility] pO2, Arterial 92 >60 mmHg LAB HEMATOLOGY METHOD 03/30/2025 9:41 AM EDT [facility] SO2, Measured, Arterial 99(H) 94 - 98 % LAB HEMATOLOGY METHOD 03/30/2025 9:41 AM EDT [facility] Base Excess, Arterial 1.2 -2.0 - 3.0 mmol/L LAB HEMATOLOGY METHOD 03/30/2025 9:41 AM EDT [facility] Bicarbonate, Calculated, Arterial 26 22 - 26 mmol/L LAB HEMATOLOGY METHOD 03/30/2025 9:41 AM EDT [facility] Hematocrit, Whole Blood 33.3(L) 40.0 - 51.0 % LAB HEMATOLOGY METHOD 03/30/2025 9:41 AM EDT [facility] Sodium, Whole Blood 136 136 - 145 mmol/L LAB HEMATOLOGY METHOD 03/30/2025 9:41 AM EDT [facility] Potassium, Whole Blood 4.1 3.6 - 4.9 mmol/L LAB HEMATOLOGY METHOD 03/30/2025 9:41 AM EDT [facility] Chloride, Whole Blood 103 97 - 107 mmol/L LAB HEMATOLOGY METHOD 03/30/2025 9:41 AM EDT [facility] Glucose, Whole Blood 158(H) 74 - 99 mg/dL LAB HEMATOLOGY METHOD 03/30/2025 9:41 AM EDT [facility] Ionized Calcium, Whole Blood 4.4(L) 4.6 - 5.1 mg/dL LAB HEMATOLOGY METHOD 03/30/2025 9:41 AM EDT [facility] Lactate, Arterial, Whole Blood 1.7(H) 0.5 - 1.6 mmol/L LAB HEMATOLOGY METHOD 03/30/2025 9:41 AM EDT [facility] Blood Arterial blood specimen / Unknown Arterial Puncture / Unknown 03/30/2025 9:32 AM EDT 03/30/2025 9:38 AM EDT us Rolando Lynch MD LAB BLOOD ORDERABLES Final Re sult [facility] [address] [place] [address] * Maddie auris Surveillance by PCR (03/30/2025 8:58 AM EDT) Maddie auris PCR Result Not Detected Not Detected 03/31/2025 7:55 AM EDT [facility] Swab (Axilla and Groin) Non-blood Collection / Unknown 03/30/2025 8:58 AM EDT 03/30/2025 9:17 AM EDT Narrative [facility] - 03/31/2025 7:55 AM EDT This PCR assay was developed and its performance characteristics determined by [facility] as appropriate for clinical purposes. This assay has not been cleared or approved by the FDA, but is performed in a CLIA regulated laboratory that is qualified to perform high-complexity testing. us Rolando Lynch MD LAB MICROBIOLOGY - GENERAL OR DERABLES Final Result [facility] [address] [place] [address] * (ABNORMAL) Anti Xa Level Unfractionated Heparin (03/30/2025 5:21 AM EDT) Anti Xa Level Unfractionated Heparin >1.10(HH ) <1.00 IU/mL LAB COAGULATION METHOD 03/30/2025 6:18 AM EDT [facility] Blood Venous blood specimen / Unknown Venipuncture / Unknown 03/30/2025 5:21 AM EDT 03/30/2025 5:32 AM EDT Narrative [facility] - 03/30/2025 6:18 AM EDT Therapeutic Range: UFH Full Dose and ACS/NH protocols*: 0.30 - 0.70 IU/mL UFH Low Dose protocol*: 0.25 - 0.50 IU/mL UFH prophylaxis: Not established Fabián Salgado MD LAB BLOOD ORDERABLES Final Res ult Performing Organization Address City/[facility]/ZIP Co de Phone Number [facility] [address] [place] [address] * (ABNORMAL) APTT (03/30/2025 5:21 AM EDT) aPTT >200(HH) 25 - 35 sec LAB COAGULATION METHOD 03/30/2025 6:18 AM EDT [facility] Blood Venous blood specimen / Unknown Venipuncture / Unknown 03/30/2025 5:21 AM EDT 03/30/2025 5:32 AM EDT Fabián Salgado MD LAB BLOOD ORDERABLES Final Res ult Performing Organization Address City/[facility]/ZIP Co de Phone Number [facility] [address] [place] [address] * (ABNORMAL) Protime-INR (03/30/2025 5:21 AM EDT) Prothrombin Time 16.7(H) 12.0 - 14.3 sec LAB COAGULATION METHOD 03/30/2025 6:18 AM EDT [facility] INR 1.3(H) 0.9 - 1.1 LAB COAGULATION METHOD 03/30/2025 6:18 AM EDT [facility] Blood Venous blood specimen / Unknown Venipuncture / Unknown 03/30/2025 5:21 AM EDT 03/30/2025 5:32 AM EDT Narrative [facility] - 03/30/2025 6:18 AM EDT OPTIMAL INR RANGES FOR PATIENT ON ORAL ANTICOAGULANT THERAPY Prevention of venous thromboembolism INR 2.0 to 3.0 In patients with heart disease: Atrial fibrillation INR 2.0 to 3.0 Valvular heart disease INR 2.0 to 3.0 Tissue heart valves INR 2.0 to 3.0 Mechanical prosthetic valves INR 2.5 to 3.5 Prevention of recurrent NH INR 2.5 to 3.5 Fabián Salgado MD LAB BLOOD ORDERABLES Final Res ult Performing Organization Address City/[facility]/ZIP Co de Phone Number [facility] [address] [place] [address] * Platelet count (03/30/2025 5:21 AM EDT) Platelet Count 197 155 - 369 10*3/uL LAB HEMATOLOGY METHOD 03/30/2025 5:41 AM EDT [facility] Blood Venous blood specimen / Unknown Venipuncture / Unknown 03/30/2025 5:21 AM EDT 03/30/2025 5:32 AM EDT Fabián Salgado MD LAB BLOOD ORDERABLES Final Res ult [facility] [address] [place] [address] * (ABNORMAL) Hematocrit (03/30/2025 5:21 AM EDT) HCT 34.2(L) 40.0 - 51.0 % LAB HEMATOLOGY METHOD 03/30/2025 5:41 AM EDT [facility] Blood Venous blood specimen / Unknown Venipuncture / Unknown 03/30/2025 5:21 AM EDT 03/30/2025 5:32 AM EDT us Fabián Salgado MD LAB BLOOD ORDERABLES Final Res ult Performing Organization Address [facility]/ZIP Co de Phone Number [facility] [address] [place] [address] * (ABNORMAL) Protime-INR (03/30/2025 12:28 AM EDT) Prothrombin Time 15.2(H) 12.0 - 14.3 sec LAB COAGULATION METHOD 03/30/2025 1:02 AM EDT [facility] INR 1.2(H) 0.9 - 1.1 LAB COAGULATION METHOD 03/30/2025 1:02 AM EDT [facility] Blood Venous blood specimen / Unknown Venipuncture / Unknown 03/30/2025 12:28 AM EDT 03/30/2025 12:37 AM EDT Narrative [facility] - 03/30/2025 1:02 AM EDT OPTIMAL INR RANGES FOR PATIENT ON ORAL ANTICOAGULANT THERAPY Prevention of venous thromboembolism INR 2.0 to 3.0 In patients with heart disease: Atrial fibrillation INR 2.0 to 3.0 Valvular heart disease INR 2.0 to 3.0 Tissue heart valves INR 2.0 to 3.0 Mechanical prosthetic valves INR 2.5 to 3.5 Prevention of recurrent NH INR 2.5 to 3.5 us Rolando Lynch MD LAB BLOOD ORDERABLES Final Re sult Performing Organization Address [facility]/ZIP Co de Phone Number [facility] [address] [place] [address] * (ABNORMAL) CBC W/O Differential - Baseline (03/30/2025 12:28 AM EDT) WBC Count 3.82 3.70 - 10.30 10*3/uL LAB HEMATOLOGY METHOD 03/30/2025 12:51 AM EDT [facility] RBC Count 3.82(L) 4.60 - 6.10 10*6/uL LAB HEMATOLOGY METHOD 03/30/2025 12:51 AM EDT [facility] HGB 11.2(L) 13.7 - 17.5 g/dL LAB HEMATOLOGY METHOD 03/30/2025 12:51 AM EDT [facility] HCT 33.7(L) 40.0 - 51.0 % LAB HEMATOLOGY METHOD 03/30/2025 12:51 AM EDT [facility] Platelet Count 169 155 - 369 10*3/uL LAB HEMATOLOGY METHOD 03/30/2025 12:51 AM EDT [facility] MCV 88 79 - 98 fL LAB HEMATOLOGY METHOD 03/30/2025 12:51 AM EDT [facility] MCH 29.3 26.0 - 32.0 pg LAB HEMATOLOGY METHOD 03/30/2025 12:51 AM EDT [facility] MCHC 33.2 30.7 - 35.5 g/dL LAB HEMATOLOGY METHOD 03/30/2025 12:51 AM EDT [facility] RDW 14.9(H) 11.5 - 14.5 % LAB HEMATOLOGY METHOD 03/30/2025 12:51 AM EDT [facility] MPV 10.4 8.8 - 12.5 fL LAB HEMATOLOGY METHOD 03/30/2025 12:51 AM EDT [facility] nRBC 0.0 <=0.0 per 100 WBCs LAB HEMATOLOGY METHOD 03/30/2025 12:51 AM EDT [facility] Blood Venous blood specimen / Unknown Venipuncture / Unknown 03/30/2025 12:28 AM EDT 03/30/2025 12:37 AM EDT us Rolando Lynch MD LAB BLOOD ORDERABLES Final Re sult [facility] [address] [place] [address] * Anti Xa Level Unfractionated Heparin - Baseline (03/30/2025 12:28 AM EDT) Anti Xa Level Unfractionated Heparin <0.11 <1.00 IU/mL LAB COAGULATION METHOD 03/30/2025 1:02 AM EDT [facility] Blood Venous blood specimen / Unknown Venipuncture / Unknown 03/30/2025 12:28 AM EDT 03/30/2025 12:37 AM EDT Narrative [facility] - 03/30/2025 1:02 AM EDT Therapeutic Range: UFH Full Dose and ACS/NH protocols*: 0.30 - 0.70 IU/mL UFH Low Dose protocol*: 0.25 - 0.50 IU/mL UFH prophylaxis: Not established Rolando Lynch MD LAB BLOOD ORDERABLES Final Re sult Performing Organization Address [facility] de Phone Number [facility] [address] [place] [address] * Anti Xa Level Unfractionated Heparin (03/30/2025 12:01 AM EDT) Anti Xa Level Unfractionated Heparin 0.14 <1.00 IU/mL LAB COAGULATION METHOD 03/30/2025 12:51 AM EDT [facility] Blood Venous blood specimen / Unknown Venipuncture / Unknown 03/30/2025 12:01 AM EDT 03/30/2025 12:23 AM EDT Narrative [facility] - 03/30/2025 12:51 AM EDT Therapeutic Range: UFH Full Dose and ACS/NH protocols*: 0.30 - 0.70 IU/mL UFH Low Dose protocol*: 0.25 - 0.50 IU/mL UFH prophylaxis: Not established Fabián Salgado MD LAB BLOOD ORDERABLES Final Res ult Performing Organization Address [facility] [place] [address] * (ABNORMAL) APTT (03/30/2025 12:01 AM EDT) aPTT 45(H) 25 - 35 sec LAB COAGULATION METHOD 03/30/2025 12:51 AM EDT [facility] Blood Venous blood specimen / Unknown Venipuncture / Unknown 03/30/2025 12:01 AM EDT 03/30/2025 12:23 AM EDT us Fabián Salgado MD LAB BLOOD ORDERABLES Final Res ult Performing Organization Address [facility]/ZIP Co de Phone Number [facility] [address] [place] [address] * Platelet count (03/30/2025 12:01 AM EDT) Platelet Count 174 155 - 369 10*3/uL LAB HEMATOLOGY METHOD 03/30/2025 12:31 AM EDT [facility] Blood Venous blood specimen / Unknown Venipuncture / Unknown 03/30/2025 12:01 AM EDT 03/30/2025 12:23 AM EDT us Fabián Salgado MD LAB BLOOD ORDERABLES Final Res ult Performing Organization Address [facility] Co de Phone Number [facility] [address] [place] [address] * (ABNORMAL) Hematocrit (03/30/2025 12:01 AM EDT) HCT 34.5(L) 40.0 - 51.0 % LAB HEMATOLOGY METHOD 03/30/2025 12:31 AM EDT [facility] Blood Venous blood specimen / Unknown Venipuncture / Unknown 03/30/2025 12:01 AM EDT 03/30/2025 12:23 AM EDT us Fabián Salgado MD LAB BLOOD ORDERABLES Final Res ult Performing Organization Address City/[facility]/ZIP Co de Phone Number [facility] [address] [place] [address] * Anti Xa Level Unfractionated Heparin (03/29/2025 7:24 PM EDT) Anti Xa Level Unfractionated Heparin 0.28 <1.00 IU/mL LAB COAGULATION METHOD 03/29/2025 7:59 PM EDT [facility] Blood Venous blood specimen / Unknown Venipuncture / Unknown 03/29/2025 7:24 PM EDT 03/29/2025 7:32 PM EDT Narrative [facility] - 03/29/2025 7:59 PM EDT Therapeutic Range: UFH Full Dose and ACS/NH protocols*: 0.30 - 0.70 IU/mL UFH Low Dose protocol*: 0.25 - 0.50 IU/mL UFH prophylaxis: Not established Fabián Salgado MD LAB BLOOD ORDERABLES Final Res ult Performing Organization Address [facility]/ZIP Co de Phone Number [facility] [address] [place] [address] * (ABNORMAL) APTT (03/29/2025 7:24 PM EDT) aPTT 77(H) 25 - 35 sec LAB COAGULATION METHOD 03/29/2025 7:59 PM EDT [facility] Blood Venous blood specimen / Unknown Venipuncture / Unknown 03/29/2025 7:24 PM EDT 03/29/2025 7:32 PM EDT Fabián Salgado MD LAB BLOOD ORDERABLES Final Res ult Performing Organization Address City/[facility] Co de Phone Number [facility] [address] [place] [address] * (ABNORMAL) Protime-INR (03/29/2025 7:24 PM EDT) Prothrombin Time 16.4(H) 12.0 - 14.3 sec LAB COAGULATION METHOD 03/29/2025 7:55 PM EDT [facility] INR 1.3(H) 0.9 - 1.1 LAB COAGULATION METHOD 03/29/2025 7:55 PM EDT [facility] Blood Venous blood specimen / Unknown Venipuncture / Unknown 03/29/2025 7:24 PM EDT 03/29/2025 7:31 PM EDT Narrative [facility] - 03/29/2025 7:55 PM EDT OPTIMAL INR RANGES FOR PATIENT ON ORAL ANTICOAGULANT THERAPY Prevention of venous thromboembolism INR 2.0 to 3.0 In patients with heart disease: Atrial fibrillation INR 2.0 to 3.0 Valvular heart disease INR 2.0 to 3.0 Tissue heart valves INR 2.0 to 3.0 Mechanical prosthetic valves INR 2.5 to 3.5 Prevention of recurrent NH INR 2.5 to 3.5 us Fabián Salgado MD LAB BLOOD ORDERABLES Final Res ult [facility] [address] [place] [address] * (ABNORMAL) CBC W/O Differential (03/29/2025 7:24 PM EDT) WBC Count 3.81 3.70 - 10.30 10*3/uL LAB HEMATOLOGY METHOD 03/29/2025 7:39 PM EDT [facility] RBC Count 3.43(L) 4.60 - 6.10 10*6/uL LAB HEMATOLOGY METHOD 03/29/2025 7:39 PM EDT [facility] HGB 10.1(L) 13.7 - 17.5 g/dL LAB HEMATOLOGY METHOD 03/29/2025 7:39 PM EDT [facility] HCT 30.3(L) 40.0 - 51.0 % LAB HEMATOLOGY METHOD 03/29/2025 7:39 PM EDT [facility] Platelet Count 154(L) 155 - 369 10*3/uL LAB HEMATOLOGY METHOD 03/29/2025 7:39 PM EDT [facility] MCV 88 79 - 98 fL LAB HEMATOLOGY METHOD 03/29/2025 7:39 PM EDT [facility] MCH 29.4 26.0 - 32.0 pg LAB HEMATOLOGY METHOD 03/29/2025 7:39 PM EDT [facility] MCHC 33.3 30.7 - 35.5 g/dL LAB HEMATOLOGY METHOD 03/29/2025 7:39 PM EDT [facility] RDW 14.8(H) 11.5 - 14.5 % LAB HEMATOLOGY METHOD 03/29/2025 7:39 PM EDT [facility] MPV 10.0 8.8 - 12.5 fL LAB HEMATOLOGY METHOD 03/29/2025 7:39 PM EDT [facility] nRBC 0.0 <=0.0 per 100 WBCs LAB HEMATOLOGY METHOD 03/29/2025 7:39 PM EDT [facility] Blood Venous blood specimen / Unknown Venipuncture / Unknown 03/29/2025 7:24 PM EDT 03/29/2025 7:32 PM EDT us Fabián Salgado MD LAB BLOOD ORDERABLES Final Res ult [facility] [address] [place] [address] * (ABNORMAL) Blood gas panel, arterial (03/29/2025 7:20 PM EDT) pH, Arterial 7.32 7.31 - 7.42 LAB HEMATOLOGY METHOD 03/29/2025 7:35 PM EDT [facility] pCO2, Arterial 47(H) 32 - 45 mmHg LAB HEMATOLOGY METHOD 03/29/2025 7:35 PM EDT [facility] pO2, Arterial 131 >60 mmHg LAB HEMATOLOGY METHOD 03/29/2025 7:35 PM EDT [facility] SO2, Measured, Arterial 100(H) 94 - 98 % LAB HEMATOLOGY METHOD 03/29/2025 7:35 PM EDT [facility] Base Excess, Arterial -1.6 -2.0 - 3.0 mmol/L LAB HEMATOLOGY METHOD 03/29/2025 7:35 PM EDT [facility] Bicarbonate, Calculated, Arterial 25 22 - 26 mmol/L LAB HEMATOLOGY METHOD 03/29/2025 7:35 PM EDT [facility] Hematocrit, Whole Blood 30.9(L) 40.0 - 51.0 % LAB HEMATOLOGY METHOD 03/29/2025 7:35 PM EDT [facility] Sodium, Whole Blood 140 136 - 145 mmol/L LAB HEMATOLOGY METHOD 03/29/2025 7:35 PM EDT [facility] Potassium, Whole Blood 3.8 3.6 - 4.9 mmol/L LAB HEMATOLOGY METHOD 03/29/2025 7:35 PM EDT [facility] Chloride, Whole Blood 108(H) 97 - 107 mmol/L LAB HEMATOLOGY METHOD 03/29/2025 7:35 PM EDT [facility] Glucose, Whole Blood 111(H) 74 - 99 mg/dL LAB HEMATOLOGY METHOD 03/29/2025 7:35 PM EDT [facility] Ionized Calcium, Whole Blood 4.5(L) 4.6 - 5.1 mg/dL LAB HEMATOLOGY METHOD 03/29/2025 7:35 PM EDT [facility] Lactate, Arterial, Whole Blood 1.5 0.5 - 1.6 mmol/L LAB HEMATOLOGY METHOD 03/29/2025 7:35 PM EDT [facility] Blood Arterial blood specimen / Unknown Arterial Puncture / Unknown 03/29/2025 7:20 PM EDT 03/29/2025 7:33 PM EDT us Nathen Da Silva MD LAB BLOOD ORDERABLES Final Resul t [facility] [address] [place] [address] * [place] Less than 1 Hour Intraoperative (03/29/2025 6:30 PM EDT) Narrative [facility] - 03/29/2025 7:18 PM EDT Images were obtained for surgical purposes. See Kana Maddox's surgical note in the patient's chart for the findings. Kana Maddox MD IMG FLUOROSCOPY PROCEDURE S Final Result [facility] * POCT ACT (03/29/2025 5:10 PM EDT) ACT+ (HIGH RANGE) 214 68 - 600 Seconds 04/28/2025 8:21 AM EDT [facility] Chemical Plant Operator Supervisor ID Blaze Butlerlatrice 04/28/2025 8:21 AM EDT [facility] ACT Device ID [id number] 04/28/2025 8:21 AM EDT [facility] Comment 04/28/2025 8:21 AM EDT [facility] Comment: ACT performed by staff at point of care. Results are reported immediately to the physician or primary caregiver. The activated clotting time is performed on patients with diverse clinical characteristics and treatment histories. Therefore, expected values are variable and results must be interpreted in the context of each individual patient. Blood Venous blood specimen / Unknown 03/29/2025 5:10 PM EDT 04/28/2025 8:21 AM EDT us Rolando Lynch MD LAB POINT OF CARE TE ST DOCKED DEVICE UNSOLICITED RESULTS Final Result Performing Organization Address [facility] Co de Phone Number [facility] [address] [facility] [address] [place] [address] * POCT ACT (03/29/2025 4:25 PM EDT) ACT+ (HIGH RANGE) 189 68 - 600 Seconds 04/28/2025 8:21 AM EDT [facility] Chemical Plant Operator Supervisor ID Butler Blazelatrice 04/28/2025 8:21 AM EDT [facility] ACT Device ID [id number] 04/28/2025 8:21 AM EDT [facility] Comment 04/28/2025 8:21 AM EDT [facility] Comment: ACT performed by staff at point of care. Results are reported immediately to the physician or primary caregiver. The activated clotting time is performed on patients with diverse clinical characteristics and treatment histories. Therefore, expected values are variable and results must be interpreted in the context of each individual patient. Blood Venous blood specimen / Unknown 03/29/2025 4:25 PM EDT 04/28/2025 8:21 AM EDT us Rolando Lynch MD LAB POINT OF CARE TE ST DOCKED DEVICE UNSOLICITED RESULTS Final Result Performing Organization Address [facility] de Phone Number [facility] [address] LAB [address] [place] [address] * POCT ACT (03/29/2025 3:51 PM EDT) ACT+ (HIGH RANGE) 217 68 - 600 Seconds 04/28/2025 8:21 AM EDT [facility] Chemical Plant Operator Supervisor ID Luke Blazelatrice 04/28/2025 8:21 AM EDT [facility] ACT Device ID [id number] 04/28/2025 8:21 AM EDT [facility] Comment 04/28/2025 8:21 AM EDT [facility] Comment: ACT performed by staff at point of care. Results are reported immediately to the physician or primary caregiver. The activated clotting time is performed on patients with diverse clinical characteristics and treatment histories. Therefore, expected values are variable and results must be interpreted in the context of each individual patient. Blood Venous blood specimen / Unknown 03/29/2025 3:51 PM EDT 04/28/2025 8:21 AM EDT us Rolando Lynch MD LAB POINT OF CARE TE ST DOCKED DEVICE UNSOLICITED RESULTS Final Result [facility] [address] [place] [address] * (ABNORMAL) Blood gas panel, arterial (03/29/2025 2:48 PM EDT) pH, Arterial 7.41 7.31 - 7.42 LAB HEMATOLOGY METHOD 03/29/2025 3:05 PM EDT [facility] pCO2, Arterial 42 32 - 45 mmHg LAB HEMATOLOGY METHOD 03/29/2025 3:05 PM EDT [facility] pO2, Arterial 186 >60 mmHg LAB HEMATOLOGY METHOD 03/29/2025 3:05 PM EDT [facility] SO2, Measured, Arterial 100(H) 94 - 98 % LAB HEMATOLOGY METHOD 03/29/2025 3:05 PM EDT [facility] Base Excess, Arterial 1.5 -2.0 - 3.0 mmol/L LAB HEMATOLOGY METHOD 03/29/2025 3:05 PM EDT [facility] Bicarbonate, Calculated, Arterial 26 22 - 26 mmol/L LAB HEMATOLOGY METHOD 03/29/2025 3:05 PM EDT [facility] Hematocrit, Whole Blood 35.9(L) 40.0 - 51.0 % LAB HEMATOLOGY METHOD 03/29/2025 3:05 PM EDT [facility] Sodium, Whole Blood 142 136 - 145 mmol/L LAB HEMATOLOGY METHOD 03/29/2025 3:05 PM EDT [facility] Potassium, Whole Blood 3.8 3.6 - 4.9 mmol/L LAB HEMATOLOGY METHOD 03/29/2025 3:05 PM EDT [facility] Chloride, Whole Blood 105 97 - 107 mmol/L LAB HEMATOLOGY METHOD 03/29/2025 3:05 PM EDT [facility] Glucose, Whole Blood 106(H) 74 - 99 mg/dL LAB HEMATOLOGY METHOD 03/29/2025 3:05 PM EDT [facility] Ionized Calcium, Whole Blood 4.6 4.6 - 5.1 mg/dL LAB HEMATOLOGY METHOD 03/29/2025 3:05 PM EDT [facility] Lactate, Arterial, Whole Blood 1.0 0.5 - 1.6 mmol/L LAB HEMATOLOGY METHOD 03/29/2025 3:05 PM EDT [facility] Blood Arterial blood specimen / Unknown Arterial Puncture / Unknown 03/29/2025 2:48 PM EDT 03/29/2025 2:53 PM EDT Ian Lou [employer], DNP LAB BLOOD ORDERABLES F inal Result Performing Organization Address City/[facility]/ZIP Co de Phone Number [facility] [address] [place] [address] * Type and Screen (03/29/2025 10:52 AM EDT) ABO/Rh O Positive 03/29/2025 10:57 AM EDT BLOOD BANK Antibody Screen Negative 03/29/2025 10:57 AM EDT BLOOD BANK Specimen Expiration 04/01/2025 23:59 03/29/2025 10:57 AM EDT BLOOD BANK Blood Venous blood specimen / Unknown Venipuncture / Unknown 03/29/2025 10:52 AM EDT 03/29/2025 10:57 AM EDT [facility] BLOOD BANK TEST ORDERABLES F inal Result Performing Organization Address City/[facility]/ZIP Co de Phone Number BLOOD BANK [address] [place] [address], [place] * ECHO, ADULT TRANSTHORACIC COMPLETE W/ CONTRAST (03/29/2025 7:52 AM EDT) BSA 2.05 m2 [facility] ISC[facility] Height 185.4 [facility] Weight 80.7 [facility]SC[facility] LVIDs 27 mm [facility]SC[facility] LA dimension 56 mm [facility]ONT[facility] ISCV IVSd 8 mm [facility] ISCV LVIDd 49 mm MONT[facility] ISCV LVPWd 10 mm [facility] ISCV LV MASS(C)D 152 g MONTY ISCV [facility] CV ECHO LV MASS INDEX 74 g/m2 M[facility] ISCV LV RWT 0.37 mm MONTY ISCV Ao Root Diam 35 mm [facility]ONTY ISCV Asc Ao Diam 33 mm MONT[facility] ISCV TR Vmax 255.5 cm/s MONT[facility] ISCV TR Max PG 26 mmHG M[facility] ISCV PA acc time 60 msec [facility] ISCV mean PAP 52 mmHg [facility] ISCV PA AZ(ACCEL) 52.1 mmHg M[facility] ISCV PA acc slope 1,089.0 cm/s2 [facility] ISCV MV E Vmax 59.1 cm/s [facility] ISCV MV A Vmax 75.9 cm/s [facility] ISCV MV E/A 0.8 cm/s [facility] ISC[facility] LAV(MOD-4ch) 109 mL [facility] ISCV RA MOD 4Ch 64 mL [facility] ISCV GRACIELA 31 mL/m2 [facility] ISCV TAPSE 20 mm MONT[facility] ISCV RV s' Santi 11.5 cm/s [facility] ISCV LV Sept e' Santi 4.4 cm/s MONTY ISCV Sep E/e' 13.4 [facility] ISCV LV Lat e' Velocity 8.5 cm/s M[facility] ISCV Lat E/e' 7.0 [facility] ISCV Avg E/e' 10.2 [facility] ISCV LAV(MOD-bp) Indexed 51 mL/m2 [facility] ISCV LAV(MOD-2ch) 102 mL MONTY ISCV RVSP 34 mmHg [facility] ISCV RAP systole 8 mmHg MONT[facility] ISCV Anatomical Region Laterality Modality Echocardiography Narrative 03/29/2025 8:41 AM EDT Left Ventricle: Based on the linear dimension and/or 2D volumes, the left ventricle is normal in size. There is normal left ventricular myocardial thickness and mass. No left ventricular mass or thrombus is seen. The left ventricular systolic function is normal. The LVEF is visually estimated at 50 - 55%. The inferior wall is hypokinetic. Right Ventricle: The right ventricle is normal in size. There is normal right ventricular wall thickness. The right ventricular systolic function is normal. The estimated right ventricular systolic pressure is 34 mmHg. Right ventricular systolic pressure is normal (<35mmHg). There is no recent study available for direct [id number] comparison. Left Ventricle Based on the linear dimension and/or 2D volumes, the left ventricle is normal in size. There is normal left ventricular myocardial thickness and mass. No left ventricular mass or thrombus is seen. The left ventricular systolic function is normal. The LVEF is visually estimated at 50 - 55%. The diastolic function is abnormal. There is grade I (mild) diastolic dysfunction. The left ventricular filling pressure is elevated. The inferior wall is hypokinetic. Right Ventricle The right ventricle is normal in size. There is normal right ventricular wall thickness. The right ventricular systolic function is normal. The estimated right ventricular systolic pressure is 34 mmHg. Right ventricular systolic pressure is normal (<35mmHg). Left Atrium The left atrial size is severely increased with an indexed volume of >48 mL/m2. The interatrial septum is not well visualized. Right Atrium The right atrial volume index is mildly increased (30-36mL/m2). IVC/SVC The IVC was not well visualized, and an assumed pressure of 8mmHg was used for calculations. Mitral Valve The mitral valve leaflets are normal in appearance with no evidence of mitral valve prolapse. There is mild posterior mitral annular calcification. There is mild mitral regurgitation. There is no mitral stenosis. Tricuspid Valve The tricuspid valve is normal in appearance. There is mild tricuspid regurgitation. There is no tricuspid stenosis. Aortic Valve The aortic valve appears to be trileaflet. The right and non-coronary cusps are calcified. There is mild aortic valve regurgitation. There is no hemodynamically significant valvular aortic stenosis. Pulmonic Valve The pulmonic valve was not well visualized. There is trace pulmonic regurgitation. There is no pulmonic stenosis. Pericardium No pericardial effusion. Great Vessels The aortic root is normal in size. The sinus of Valsalva (aortic root) diameter is 35 mm by leading edge to leading edge method. In the maximally visualized portion, the ascending aorta appears normal in size. The ascending aorta diameter is 33 mm. The main pulmonary artery is not well visualized. Extracardiac There is no pleural effusion. Study Details A complete transthoracic echocardiogram using two-dimensional (2D), m-mode, color and spectral flow Doppler imaging was performed. Definity contrast was used during the study. Height: 185.4 cm. Weight: 80.7 kg. BSA: 2.05 m2. Study Recommendation There is no recent study available for direct [id number] comparison. us Angelica Anderson APRN, DNP CV ECHO PROCEDURES F inal Result * (ABNORMAL) CBC W/O Differential (03/29/2025 3:25 AM EDT) WBC Count 4.79 3.70 - 10.30 10*3/uL LAB HEMATOLOGY METHOD 03/29/2025 3:58 AM EDT [facility] RBC Count 4.23(L) 4.60 - 6.10 10*6/uL LAB HEMATOLOGY METHOD 03/29/2025 3:58 AM EDT [facility] HGB 12.5(L) 13.7 - 17.5 g/dL LAB HEMATOLOGY METHOD 03/29/2025 3:58 AM EDT [facility] HCT 37.0(L) 40.0 - 51.0 % LAB HEMATOLOGY METHOD 03/29/2025 3:58 AM EDT [facility] Platelet Count 186 155 - 369 10*3/uL LAB HEMATOLOGY METHOD 03/29/2025 3:58 AM EDT [facility] MCV 88 79 - 98 fL LAB HEMATOLOGY METHOD 03/29/2025 3:58 AM EDT [facility] MCH 29.6 26.0 - 32.0 pg LAB HEMATOLOGY METHOD 03/29/2025 3:58 AM EDT [facility] MCHC 33.8 30.7 - 35.5 g/dL LAB HEMATOLOGY METHOD 03/29/2025 3:58 AM EDT [facility] RDW 14.7(H) 11.5 - 14.5 % LAB HEMATOLOGY METHOD 03/29/2025 3:58 AM EDT [facility] MPV 10.2 8.8 - 12.5 fL LAB HEMATOLOGY METHOD 03/29/2025 3:58 AM EDT [facility] nRBC 0.0 <=0.0 per 100 WBCs LAB HEMATOLOGY METHOD 03/29/2025 3:58 AM EDT [facility] Blood Venous blood specimen / Unknown Venipuncture / Unknown 03/29/2025 3:25 AM EDT 03/29/2025 3:47 AM EDT us Fabián Salgado MD LAB BLOOD ORDERABLES Final Res ult [facility] [address] [place] [address] * Phosphorus (03/29/2025 3:25 AM EDT) Phosphorus, Plasma 2.5 2.5 - 4.5 mg/dL 03/29/2025 4:17 AM EDT [facility] Blood Venous blood specimen / Unknown Venipuncture / Unknown 03/29/2025 3:25 AM EDT 03/29/2025 3:47 AM EDT us Fabián Salgado MD LAB BLOOD ORDERABLES Final Res ult Performing Organization Address [facility]/ZIP Co de Phone Number [facility] [address] [place] [address] * Magnesium (03/29/2025 3:25 AM EDT) Magnesium, Plasma 2.0 1.9 - 2.4 mg/dL 03/29/2025 4:17 AM EDT [facility] Blood Venous blood specimen / Unknown Venipuncture / Unknown 03/29/2025 3:25 AM EDT 03/29/2025 3:47 AM EDT us Fabián Salgado MD LAB BLOOD ORDERABLES Final Res ult Performing Organization Address City/[facility]/ZIP Co de Phone Number [facility] [address] [place] [address] * (ABNORMAL) Basic metabolic panel (03/29/2025 3:25 AM EDT) Glucose, Plasma 109(H) 74 - 99 mg/dL 03/29/2025 4:17 AM EDT [facility] BUN, Plasma 19 8 - 23 mg/dL 03/29/2025 4:17 AM EDT [facility] Creatinine, Plasma 0.82 0.70 - 1.20 mg/dL 03/29/2025 4:17 AM EDT [facility] BUN/Creatinine Ratio 23 03/29/2025 4:17 AM EDT [facility] Sodium, Plasma 141 136 - 145 mmol/L 03/29/2025 4:17 AM EDT [facility] Potassium, Plasma 3.8 3.6 - 4.9 mmol/L 03/29/2025 4:17 AM EDT [facility] Chloride, Plasma 105 97 - 107 mmol/L 03/29/2025 4:17 AM EDT [facility] CO2, Plasma 24 22 - 29 mmol/L 03/29/2025 4:17 AM EDT [facility] Anion Gap 12 6 - 16 mmol/L 03/29/2025 4:17 AM EDT [facility] Total Calcium, Plasma 9.0 8.9 - 10.2 mg/dL 03/29/2025 4:17 AM EDT [facility] eGFRcr 86.6 mL/min/1.7 3m*2 03/29/2025 4:17 AM EDT [facility] Comment:Reported eGFRcr in m L/min/1.73m2 is based the CKD-EPI 2020 equation that does not use a race coefficient. Blood Venous blood specimen / Unknown Venipuncture / Unknown 03/29/2025 3:25 AM EDT 03/29/2025 3:47 AM EDT us Fabián Salgado MD LAB BLOOD ORDERABLES Final Res ult [facility] [address] [place] [address] * (ABNORMAL) CBC W/O Differential (03/28/2025 4:05 AM EDT) WBC Count 4.10 3.70 - 10.30 10*3/uL LAB HEMATOLOGY METHOD 03/28/2025 4:24 AM EDT [facility] RBC Count 3.80(L) 4.60 - 6.10 10*6/uL LAB HEMATOLOGY METHOD 03/28/2025 4:24 AM EDT [facility] HGB 11.1(L) 13.7 - 17.5 g/dL LAB HEMATOLOGY METHOD 03/28/2025 4:24 AM EDT [facility] HCT 33.8(L) 40.0 - 51.0 % LAB HEMATOLOGY METHOD 03/28/2025 4:24 AM EDT [facility] Platelet Count 154(L) 155 - 369 10*3/uL LAB HEMATOLOGY METHOD 03/28/2025 4:24 AM EDT [facility] MCV 89 79 - 98 fL LAB HEMATOLOGY METHOD 03/28/2025 4:24 AM EDT [facility] MCH 29.2 26.0 - 32.0 pg LAB HEMATOLOGY METHOD 03/28/2025 4:24 AM EDT [facility] MCHC 32.8 30.7 - 35.5 g/dL LAB HEMATOLOGY METHOD 03/28/2025 4:24 AM EDT [facility] RDW 14.9(H) 11.5 - 14.5 % LAB HEMATOLOGY METHOD 03/28/2025 4:24 AM EDT [facility] MPV 9.9 8.8 - 12.5 fL LAB HEMATOLOGY METHOD 03/28/2025 4:24 AM EDT [facility] nRBC 0.0 <=0.0 per 100 WBCs LAB HEMATOLOGY METHOD 03/28/2025 4:24 AM EDT [facility] Blood Venous blood specimen / Unknown Venipuncture / Unknown 03/28/2025 4:05 AM EDT 03/28/2025 4:10 AM EDT us Fabián Salgado MD LAB BLOOD ORDERABLES Final Res ult Performing Organization Address City/[facility]/ZIP Co de Phone Number [facility] [address] [place] [address] * Light Green Top (03/28/2025 3:59 AM EDT) Extra Hold for add-ons 03/28/2025 7:01 AM EDT [facility] Comment:Auto resulted. Blood Venous blood specimen / Unknown 03/28/2025 3:59 AM EDT 03/28/2025 4:14 AM EDT us Fabián Salgado MD LAB BLOOD ORDERABLES Final Res ult Performing Organization Address City/[facility]/ZIP Co de Phone Number [facility] [address] [place] [address] * VAS US Venous Duplex Lower Extremity Bilateral (03/26/2025 8:07 AM EDT) Anatomical Region Laterality Modality Lower Extremities Bilateral Ultrasound Impressions 03/29/2025 2:36 PM EDT Right: Normal, limited study. There is no evidence of acute or chronic greater saphenous thrombosis identified in the visualized segments. Femoral and greater saphenous dimensions are as described above. Left: Normal, limited study. There is no evidence of acute or chronic greater saphenous thrombosis identified in the visualized segments. Femoral and greater saphenous dimensions are as described above. COMMUNICATION: Per this written report. Preliminary report signed by Felicia Benítez RVT on 03/26/2025 8:26 AM By electronically signing this report, I, the attending physician, attest that I have personally reviewed the images/data for the above examination(s) and I agree with the final edited report. Drafted by Felicia Benítez RVT on 03/26/2025 8:19 AM Final report signed by Fabián Salgado MD on 03/29/2025 2:36 PM Narrative 03/29/2025 2:36 PM EDT CLINICAL INDICATION: preop planning for bypass surgery TECHNIQUE: Non-invasive, real time duplex exam of the lower extremity venous circulation with Doppler ultrasonic waveform and spectral analysis was performed. COMPARISON: None. FINDINGS: Bilateral screening for DVT is negative in visualized vessels. Unable to visualize the bilateral peroneal veins due to edema. Right: The following transverse measurements of the femoral vein and greater saphenous were obtained: Femoral vein: Prox: 0.79 x 0.98 cm Mid: Unable to accurately measure due to calcific plaque shadowing. Distal: 0.99 x 0.90 cm GSV: At SFJ: 0.58 x 0.61 cm prox thigh: Compressible, unable to accurately measure due to vessel size, branch noted at this level mid thigh: Compressible, unable to accurately measure due to vessel size distal thigh: Not visualize due to vessel size at knee: Not visualize due to vessel size prox calf: Not visualize due to vessel size mid calf: Not visualize due to vessel size distal calf: Not visualize due to vessel size Left: The following transverse measurements of the femoral vein and greater saphenous were obtained: Femoral vein: Prox: 0.88 x 1.03 cm Mid: 0.93 x 0.92 cm Distal: 0.83 x 0.91 cm GSV: At SFJ: 0.65 x 0.63 cm prox thigh: 0.52 x 0.49 cm mid thigh: 0.17 x 0.20 cm, branch noted at this level distal thigh: 0.14 x 0.15 cm at knee: 0.19 x 0.20 cm prox calf: 0.24 x 0.27 cm mid calf: Not visualize due to vessel size distal calf: Not visualize due to vessel size Procedure Note Fabián Salgado MD - 03/29/2025 CLINICAL INDICATION: preop planning for bypass surgery TECHNIQUE: Non-invasive, real time duplex exam of the lower extremity venouscirculation with Doppler ultrasonic waveform and spectral analysis wasperformed. COMPARISON: None. FINDINGS: Bilateral screening for DVT is negative in visualized vessels. Unable tovisualize the bilateral peroneal veins due to edema. Right: The following transverse measurements of the femoral vein andgreater saphenous were obtained: Femoral vein: Prox: 0.79 x 0.98 cm Mid: Unable to accurately measure due to calcific plaque shadowing. Distal: 0.99 x 0.90 cm GSV: At SFJ: 0.58 x 0.61 cm prox thigh: Compressible, unable to accurately measure due to vessel size,branch noted at this level mid thigh: Compressible, unable to accurately measure due to vessel size distal thigh: Not visualize due to vessel size at knee: Not visualize due to vessel size prox calf: Not visualize due to vessel size mid calf: Not visualize due to vessel size distal calf: Not visualize due to vessel size Left: The following transverse measurements of the femoral vein andgreater saphenous were obtained: Femoral vein: Prox: 0.88 x 1.03 cm Mid: 0.93 x 0.92 cm Distal: 0.83 x 0.91 cm GSV: At SFJ: 0.65 x 0.63 cm prox thigh: 0.52 x 0.49 cm mid thigh: 0.17 x 0.20 cm, branch noted at this level distal thigh: 0.14 x 0.15 cm at knee: 0.19 x 0.20 cm prox calf: 0.24 x 0.27 cm mid calf: Not visualize due to vessel size distal calf: Not visualize due to vessel size IMPRESSION: Right: Normal, limited study. There is no evidence of acute or chronicgreater saphenous thrombosis identified in the visualized segments.Femoral and greater saphenous dimensions are as described above. Left: Normal, limited study. There is no evidence of acute or chronicgreater saphenous thrombosis identified in the visualized segments.Femoral and greater saphenous dimensions are as described above. COMMUNICATION: Per this written report. Preliminary report signed by Felicia Benítez RVT on 03/26/2025 8:26 AM By electronically signing this report, I, the attending physician, attestthat I have personally reviewed the images/data for the aboveexamination(s) and I agree with the final edited report. Drafted by Felicia Benítez RVT on 03/26/2025 8:19 AM Final report signed by Fabiná Salgado MD on 03/29/2025 2:36 PM Fabián Salgado MD CV VASCULAR PROCEDURES Final R esult * (ABNORMAL) Hemoglobin A1c (03/26/2025 1:53 AM EDT) Hemoglobin A1c 5.8(H) <5.7 % 03/26/2025 12:06 PM EDT [facility] Blood Venous blood specimen / Unknown Venipuncture / Unknown 03/26/2025 1:53 AM EDT 03/26/2025 2:21 AM EDT Narrative [facility] - 03/26/2025 12:06 PM EDT HA1C Interpretive Data: Diagnosis of Diabetes: Diabetic > or = 6.5% Pre-diabetic 5.7 to 6.4% Non-diabetic < or = 5.6% Glycemic Targets for Type I and Type II Diabetics: Non- Adults <7.0% Adults <6.0% Children and Adolescents <7.5% Source: [place] [employer]. Standards of medical care in diabetes,2017. Diabetes Care.2017:40 (suppl 1):S1-S135. us Angelica Anderson APRN, DNP LAB BLOOD ORDERABLES Final Result [facility] [address] [place] [address] * (ABNORMAL) Basic metabolic panel (03/26/2025 1:53 AM EDT) Glucose, Plasma 127(H) 74 - 99 mg/dL 03/26/2025 2:50 AM EDT [facility] BUN, Plasma 16 8 - 23 mg/dL 03/26/2025 2:50 AM EDT [facility] Creatinine, Plasma 0.83 0.70 - 1.20 mg/dL 03/26/2025 2:50 AM EDT [facility] BUN/Creatinine Ratio 19 03/26/2025 2:50 AM EDT [facility] Sodium, Plasma 136 136 - 145 mmol/L 03/26/2025 2:50 AM EDT [facility] Potassium, Plasma 4.3 3.6 - 4.9 mmol/L 03/26/2025 2:50 AM EDT [facility] Chloride, Plasma 105 97 - 107 mmol/L 03/26/2025 2:50 AM EDT [facility] CO2, Plasma 21(L) 22 - 29 mmol/L 03/26/2025 2:50 AM EDT [facility] Anion Gap 10 6 - 16 mmol/L 03/26/2025 2:50 AM EDT [facility] Total Calcium, Plasma 8.0(L) 8.9 - 10.2 mg/dL 03/26/2025 2:50 AM EDT [facility] eGFRcr 86.3 mL/min/1.7 3m*2 03/26/2025 2:50 AM EDT [facility] Comment:Reported eGFRcr in m L/min/1.73m2 is based the CKD-EPI 2020 equation that does not use a race coefficient. Blood Venous blood specimen / Unknown Venipuncture / Unknown 03/26/2025 1:53 AM EDT 03/26/2025 2:21 AM EDT us Fabián Salgado MD LAB BLOOD ORDERABLES Final Res ult [facility] [address] [place] [address] * (ABNORMAL) CBC (03/26/2025 1:53 AM EDT) WBC Count 3.08(L) 3.70 - 10.30 10*3/uL LAB HEMATOLOGY METHOD 03/26/2025 2:29 AM EDT [facility] RBC Count 3.76(L) 4.60 - 6.10 10*6/uL LAB HEMATOLOGY METHOD 03/26/2025 2:29 AM EDT [facility] HGB 10.9(L) 13.7 - 17.5 g/dL LAB HEMATOLOGY METHOD 03/26/2025 2:29 AM EDT [facility] HCT 32.4(L) 40.0 - 51.0 % LAB HEMATOLOGY METHOD 03/26/2025 2:29 AM EDT [facility] Platelet Count 153(L) 155 - 369 10*3/uL LAB HEMATOLOGY METHOD 03/26/2025 2:29 AM EDT [facility] MCV 86 79 - 98 fL LAB HEMATOLOGY METHOD 03/26/2025 2:29 AM EDT [facility] MCH 29.0 26.0 - 32.0 pg LAB HEMATOLOGY METHOD 03/26/2025 2:29 AM EDT [facility] MCHC 33.6 30.7 - 35.5 g/dL LAB HEMATOLOGY METHOD 03/26/2025 2:29 AM EDT [facility] RDW 14.1 11.5 - 14.5 % LAB HEMATOLOGY METHOD 03/26/2025 2:29 AM EDT [facility] MPV 10.1 8.8 - 12.5 fL LAB HEMATOLOGY METHOD 03/26/2025 2:29 AM EDT [facility] nRBC 0.0 <=0.0 per 100 WBCs LAB HEMATOLOGY METHOD 03/26/2025 2:29 AM EDT [facility] Blood Venous blood specimen / Unknown Venipuncture / Unknown 03/26/2025 1:53 AM EDT 03/26/2025 2:21 AM EDT us Fabián Salgado MD LAB BLOOD ORDERABLES Final Res ult [facility] [address] [place] [address] * ECG Adult (03/25/2025 8:10 PM EDT) EKG DIAGNOSIS CLASS Borderline Normal MUSE ECG Ventricular Rate 69 BPM MUSE ECG Atrial Rate 69 BPM MUSE ECG [place] Interval 160 ms MUSE ECG QRSD Interval 82 ms MUSE ECG QT Interval 442 ms MUSE ECG QTC Interval 473 ms MUSE ECG P [place] 106 degrees MUSE ECG R [place] 41 degrees MUSE ECG T Wave [place] 55 degrees MUSE ECG Diagnosis Sinus rhythm with premature supraventricular complexes MUSE ECG Diagnosis Otherwise normal ECG MUSE ECG Diagnosis MUSE ECG Diagnosis Confirmed by Najma Sam ([id number]) on 03/26/2025 9:36:45 PM MUSE ECG 03/25/2025 8:10 PM EDT 03/26/2025 9:36 PM EDT Fabián Salgado MD ECG ORDERABLES Final Result Performing Organization Address City/[facility] Co de Phone Number MUSE ECG * FL Less than 1 Hour Intraoperative (03/25/2025 3:34 PM EDT) Narrative IMAGING - 03/25/2025 4:12 PM EDT Images were obtained for surgical purposes. See Fabián Salgado's surgical note in the patient's chart for the findings. Faibán Salgado MD IMG FLUOROSCOPY PROCEDURES Fin al Result Performing Organization Address [facility] Co de Phone Number IMAGING * POCT ACT (03/25/2025 2:18 PM EDT) Pathologist [facility] ACT+ (HIGH RANGE) 233 68 - 600 Seconds 03/27/2025 3:59 AM EDT [facility] Chemical Plant Operator Supervisor ID Clifford Aldana 03/27/2025 3:59 AM EDT [facility] ACT Device ID [id number] 03/27/2025 3:59 AM EDT [facility] Comment 03/27/2025 3:59 AM EDT [facility] Comment: ACT performed by staff at point of care. Results are reported immediately to the physician or primary caregiver. The activated clotting time is performed on patients with diverse clinical characteristics and treatment histories. Therefore, expected values are variable and results must be interpreted in the context of each individual patient. Blood Venous blood specimen / Unknown 03/25/2025 2:18 PM EDT 03/27/2025 3:59 AM EDT Fabián Salgado MD LAB POINT OF CARE TE ST DOCKED DEVICE UNSOLICITED RESULTS Final Result Performing Organization Address [facility] de Phone Number [facility] [address] LAB [address] [place] [address] * POCT ACT (03/25/2025 1:36 PM EDT) ACT+ (HIGH RANGE) 299 68 - 600 Seconds 03/27/2025 3:59 AM EDT [facility] Chemical Plant Operator Supervisor ID Eva Curry 03/27/2025 3:59 AM EDT [facility] ACT Device ID [id number] 03/27/2025 3:59 AM EDT [facility] Comment 03/27/2025 3:59 AM EDT [facility] Comment: ACT performed by staff at point of care. Results are reported immediately to the physician or primary caregiver. The activated clotting time is performed on patients with diverse clinical characteristics and treatment histories. Therefore, expected values are variable and results must be interpreted in the context of each individual patient. Blood Venous blood specimen / Unknown 03/25/2025 1:36 PM EDT 03/27/2025 3:59 AM EDT Fabián Salgado MD LAB POINT OF CARE TE ST DOCKED DEVICE UNSOLICITED RESULTS Final Result Performing Organization Address City/[facility]/ZIP Co de Phone Number [facility] [address] [place] [address] * Type and screen (03/25/2025 11:28 AM EDT) ABO/Rh O Positive 03/25/2025 11:48 AM EDT BLOOD BANK Antibody Screen Negative 03/25/2025 11:48 AM EDT BLOOD BANK Specimen Expiration 03/28/2025 23:59 03/25/2025 11:48 AM EDT BLOOD BANK Blood Venous blood specimen / Unknown Venipuncture / Unknown 03/25/2025 11:28 AM EDT 03/25/2025 11:48 AM EDT Fabián Salgado MD LAB BLOOD BANK TEST ORDERABLES Final Result Performing Organization Address City/[facility] Co de Phone Number BLOOD BANK [address] [place] [address], * Protime-INR (03/25/2025 11:28 AM EDT) Prothrombin Time 14.3 12.0 - 14.3 sec LAB COAGULATION METHOD 03/25/2025 12:01 PM EDT [facility] INR 1.1 0.9 - 1.1 LAB COAGULATION METHOD 03/25/2025 12:01 PM EDT [facility] Blood Venous blood specimen / Unknown Venipuncture / Unknown 03/25/2025 11:28 AM EDT 03/25/2025 11:40 AM EDT Narrative [facility] - 03/25/2025 12:01 PM EDT OPTIMAL INR RANGES FOR PATIENT ON ORAL ANTICOAGULANT THERAPY Prevention of venous thromboembolism INR 2.0 to 3.0 In patients with heart disease: Atrial fibrillation INR 2.0 to 3.0 Valvular heart disease INR 2.0 to 3.0 Tissue heart valves INR 2.0 to 3.0 Mechanical prosthetic valves INR 2.5 to 3.5 Prevention of recurrent NH INR 2.5 to 3.5 Fabián Salgado MD LAB BLOOD ORDERABLES Final Res ult [facility] [address] [place] [address] * (ABNORMAL) Basic metabolic panel (03/25/2025 11:28 AM EDT) Glucose, Plasma 107(H) 74 - 99 mg/dL 03/25/2025 12:07 PM EDT [facility] BUN, Plasma 16 8 - 23 mg/dL 03/25/2025 12:07 PM EDT [facility] Creatinine, Plasma 0.84 0.70 - 1.20 mg/dL 03/25/2025 12:07 PM EDT [facility] BUN/Creatinine Ratio 19 03/25/2025 12:07 PM EDT [facility] Sodium, Plasma 137 136 - 145 mmol/L 03/25/2025 12:07 PM EDT [facility] Potassium, Plasma 4.9 3.6 - 4.9 mmol/L 03/25/2025 12:07 PM EDT [facility] Comment:Hemolyzed, result ma y be falsely increased. Chloride, Plasma 103 97 - 107 mmol/L 03/25/2025 12:07 PM EDT [facility] CO2, Plasma 21(L) 22 - 29 mmol/L 03/25/2025 12:07 PM EDT [facility] Anion Gap 13 6 - 16 mmol/L 03/25/2025 12:07 PM EDT [facility] Total Calcium, Plasma 9.2 8.9 - 10.2 mg/dL 03/25/2025 12:07 PM EDT [facility] eGFRcr 86.0 mL/min/1.7 3m*2 03/25/2025 12:07 PM EDT [facility] Comment:Reported eGFRcr in m L/min/1.73m2 is based the CKD-EPI 2020 equation that does not use a race coefficient. Blood Venous blood specimen / Unknown Venipuncture / Unknown 03/25/2025 11:28 AM EDT 03/25/2025 11:40 AM EDT us Fabián Salgado MD LAB BLOOD ORDERABLES Final Res ult [facility] [address] [place] [address] * CBC (03/25/2025 11:28 AM EDT) WBC Count 4.00 3.70 - 10.30 10*3/uL LAB HEMATOLOGY METHOD 03/25/2025 11:47 AM EDT [facility] RBC Count 5.01 4.60 - 6.10 10*6/uL LAB HEMATOLOGY METHOD 03/25/2025 11:47 AM EDT [facility] HGB 14.7 13.7 - 17.5 g/dL LAB HEMATOLOGY METHOD 03/25/2025 11:47 AM EDT [facility] HCT 43.2 40.0 - 51.0 % LAB HEMATOLOGY METHOD 03/25/2025 11:47 AM EDT [facility] Platelet Count 170 155 - 369 10*3/uL LAB HEMATOLOGY METHOD 03/25/2025 11:47 AM EDT [facility] MCV 86 79 - 98 fL LAB HEMATOLOGY METHOD 03/25/2025 11:47 AM EDT [facility] MCH 29.3 26.0 - 32.0 pg LAB HEMATOLOGY METHOD 03/25/2025 11:47 AM EDT [facility] MCHC 34.0 30.7 - 35.5 g/dL LAB HEMATOLOGY METHOD 03/25/2025 11:47 AM EDT [facility] RDW 14.3 11.5 - 14.5 % LAB HEMATOLOGY METHOD 03/25/2025 11:47 AM EDT [facility] MPV 10.2 8.8 - 12.5 fL LAB HEMATOLOGY METHOD 03/25/2025 11:47 AM EDT [facility] nRBC 0.0 <=0.0 per 100 WBCs LAB HEMATOLOGY METHOD 03/25/2025 11:47 AM EDT [facility] Blood Venous blood specimen / Unknown Venipuncture / Unknown 03/25/2025 11:28 AM EDT 03/25/2025 11:40 AM EDT us Fabián Salgado MD LAB BLOOD ORDERABLES Final Res ult [facility] [address] [place] [address] documented in this encounter Visit Diagnoses Diagnosis Peripheral arterial disease- Primary Unspecified peripheral vascular disease Peripheral arterial disease (CMS/HCC) Unspecified peripheral vascular disease Postoperative hypotension Other iatrogenic hypotension Ischemic ulcer, 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) Hypophosphatemia Disorders of phosphorus metabolism Hypomagnesemia Disorders of magnesium metabolism History of prostate cancer Personal history of malignant neoplasm of prostate Coronary artery disease involving [place] heart without angina pectoris, unspecified vessel or lesion type Electrolyte imbalance Electrolyte and fluid disorders not elsewhere classified Limb ischemia Ischemic ulcer, 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) History of prostate cancer Personal history of malignant neoplasm of prostate Postoperative hypotension Other iatrogenic hypotension Hypophosphatemia Disorders of phosphorus metabolism Hypomagnesemia Disorders of magnesium metabolism Electrolyte imbalance Electrolyte and fluid disorders not elsewhere classified Ischemic ulcer, 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) Limb ischemia Peripheral arterial disease Unspecified peripheral vascular disease Ischemic ulcer, 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) Limb ischemia Peripheral arterial disease Unspecified peripheral vascular disease documented in this encounter Admitting Diagnoses Diagnosis Ischemic ulcer, 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) Peripheral arterial disease Unspecified peripheral vascular disease documented in this encounter Administered Medications Inactive Administered Medications - up to 3 most recent administrations Medication Order MAR Action Action Date Dose Rate Site acetaminophen (Tylenol) tablet 1,000 mg 1,000 mg, Oral, Every 8 hours, First dose on Sat03/25/25 at 1615, Until Discontinued, Routine Given 04/01/2025 6:20 PM EDT 1,000 mg Given 04/01/2025 9:18 AM EDT 1,000 mg Given 03/31/2025 4:37 PM EDT 1,000 mg apixaban (Eliquis) tablet 5 mg 5 mg, Oral, 2 times daily, First dose on Sat03/31/25 at 1200, Until Discontinued, Routine Given 04/02/2025 8:29 AM EDT 5 mg Given 04/01/2025 8:33 PM EDT 5 mg Given 04/01/2025 9:19 AM EDT 5 mg aspirin chewable tablet 81 mg 81 mg, Oral, Every morning, First dose on Sat03/26/25 at 0600, Until Discontinued, Routine Given 03/30/2025 5:18 AM EDT 81 mg Given 03/29/2025 6:20 AM EDT 81 mg Given 03/28/2025 6:01 AM EDT 81 mg bicalutamide (Casodex) chemo tablet 50 mg 50 mg, Oral, Every morning, Hazardous Drug-Tier 1 Precautions. Dispose in BLACK Hazardous Waste Container. Chemotherapy: refer to [id number]., First dose on Sat03/26/25 at 0600, Recovery(Phase II-Outpatient)/On Unit(Inpatient) Given 03/29/2025 9:35 AM EDT 50 mg Given 03/28/2025 9:58 AM EDT 50 mg Given 03/27/2025 8:32 AM EDT 50 mg bisoprolol (Zebeta) tablet 5 mg 5 mg, Oral, Every morning, First dose on Sat03/26/25 at 0600, Until Discontinued, Routine Given 03/30/2025 5:18 AM EDT 5 mg Given 03/29/2025 6:19 AM EDT 5 mg Given 03/28/2025 6:02 AM EDT 5 mg bisoprolol (Zebeta) tablet 5 mg 5 mg, Oral, Daily, First dose on Sat04/01/25 at 1915, Until Discontinued, Routine Given 04/02/2025 8:29 AM EDT 5 mg Given 04/01/2025 7:50 PM EDT 5 mg cadexomer iodine (Iodosorb) 0.9 % gel Topical, Daily, First dose on Sat03/26/25 at 1415, Until Discontinued, Routine Given 04/02/2025 12:06 PM EDT Given 04/01/2025 12:30 PM EDT Given 03/31/2025 4:39 PM EDT calcium gluconate 1 g in sodium chloride 0.9% 100 mL IVPB (vial adapter required) 1 g, Intravenous, Once, 1 dose, On Sat03/30/25 at 1115, at 240 mL/hr, Administer over 30 Minutes, Routine New Bag 03/30/2025 10:41 AM EDT 1 g 240 mL/hr calcium-vitamin D 500-200 MG-UNIT per tablet 1 tablet 1 tablet, Oral, Daily, First dose on Sat03/26/25 at 0900, Until Discontinued, Routine Given 04/02/2025 8:29 AM EDT 1 tablet Given 04/01/2025 9:19 AM EDT 1 tablet Given 03/31/2025 8:35 AM EDT 1 tablet celecoxib (CeleBREX) capsule 100 mg 100 mg, Oral, 2 times daily, First dose on Sat03/25/25 at 2100, Until Discontinued, Routine, Recovery(Phase II-Outpatient)/On Unit(Inpatient) Given 03/26/2025 9:44 AM EDT 100 mg Given 03/25/2025 9:00 PM EDT 100 mg clopidogrel (Plavix) tablet 75 mg 75 mg, Oral, Daily, First dose on Sat03/31/25 at 0900, Until Discontinued, Routine Given 04/02/2025 8:29 AM EDT 75 mg Given 04/01/2025 9:19 AM EDT 75 mg Given 03/31/2025 8:35 AM EDT 75 mg cyanocobalamin (Vitamin B-12) tablet 1,000 mcg 1,000 mcg, Oral, Daily with lunch, First dose on Sat03/26/25 at 1200, Until Discontinued Given 04/02/2025 12:52 PM EDT 1,000 mcg Given 04/01/2025 12:24 PM EDT 1,000 mcg Given 03/31/2025 11:28 AM EDT 1,000 mcg docusate sodium (Colace) capsule 100 mg 100 mg, Oral, 2 times daily, First dose on Sat03/25/25 at 2100, Until Discontinued, Routine Given 04/02/2025 8:29 AM EDT 100 mg Given 04/01/2025 8:33 PM EDT 100 mg Given 04/01/2025 9:19 AM EDT 100 mg ferrous sulfate EC tablet 324 mg 324 mg, Oral, Daily with breakfast, First dose on Sat03/26/25 at 0800, Until Discontinued Given 04/02/2025 8:29 AM EDT 324 mg Given 04/01/2025 9:19 AM EDT 324 mg Given 03/31/2025 8:35 AM EDT 324 mg furosemide (Lasix) tablet 20 mg 20 mg, Oral, Every morning, First dose on Sat03/26/25 at 0600, Until Discontinued, Routine Given 03/30/2025 5:19 AM EDT 20 mg Given 03/29/2025 6:19 AM EDT 20 mg Given 03/28/2025 6:01 AM EDT 20 mg heparin (porcine) injection 5,000 Units 5,000 Units, Subcutaneous, Once, 1 dose, On Sat03/25/25 at 1215, Routine, Holding - Preprocedure Given 03/25/2025 11:39 AM EDT 5,000 Units Right Upper Arm (Back) heparin (porcine) injection 5,000 Units 5,000 Units, Subcutaneous, Every 8 hours scheduled, First dose on Sat03/26/25 at 1245, Until Discontinued, Routine Given 03/29/2025 6:19 AM EDT 5,000 Units Left Upper Abdomen Given 03/28/2025 10:17 PM EDT 5,000 Units Right Lower Abdomen Given 03/28/2025 3:08 PM EDT 5,000 Units L eft Upper Arm (Back) heparin (porcine) injection 6,500 Units 6,500 Units (rounded from 6,464 Units = 80 Units/kg 80.8 kg), Intravenous, Once, 1 dose, On Sat03/30/25 at 0115, Routine Given 03/30/2025 12:43 AM EDT 6,500 Units heparin 25,000 units/250 mL (100 unit/mL) infusion - Adult Full Dose Protocol 0-35 Units/kg/hr 80.8 kg (0-28.28 mL/hr, rounded to 0-28.3 mL/hr), Intravenous, Titrated, Starting on Sat03/30/25 at 0115, Until 03/31/25 at 1105, Routine Rate/Dose Verify 03/31/2025 11:00 AM EDT 15 Units/kg/hr 12.1 mL/hr Rate/Dose Verify 03/31/2025 10:00 AM EDT 15 Units/kg/hr 12 .1 mL/hr Rate/Dose Verify 03/31/2025 9:00 AM EDT 15 Units/kg/hr 12. 1 mL/hr heparin 25,000 units/250 mL (100 units/mL) infusion (thrombolysis) 500 Units/hr (5 mL/hr), 100 units/mL, Intravenous, Continuous, Starting on 03/29/25 at 2000, Until Sat03/30/25 at 0017, Routine Rate/Dose Verify 03/29/2025 11:00 PM EDT 500 Units/hr 5 mL/hr Rate/Dose Verify 03/29/2025 10:00 PM EDT 500 Units/hr 5 mL /hr New Bag 03/29/2025 7:30 PM EDT 500 Units/hr 5 mL/hr hydrALAZINE (Apresoline) injection 10 mg 10 mg, Intravenous, Every 30 min PRN, Starting on Diane 03/25/25 at 1526, Until Sat03/30/25 at 1020, Routine, high blood pressure, For SBP >160, hold for HR >100Indications:Hypertensive Emergency,Severe Hypertension Given 03/28/2025 9:53 PM EDT 10 mg Given 03/28/2025 3:30 PM EDT 10 mg hydrALAZINE (Apresoline) injection 10 mg 10 mg, Intravenous, Every 1 - 2 hours prn, Starting on Sat04/01/25 at 1608, Until Sat04/01/25 at 1825, Routine, high blood pressure, goal systolic BP less than 160 Given 04/01/2025 4:15 PM EDT 10 mg Srinath powder 1 packet 1 packet, Oral, 2 times daily, First dose on Sat04/02/25 at 0915, Until Discontinued, Routine Given 04/02/2025 8:30 AM EDT 1 packet lactated Ringer's bolus 1,000 mL 1,000 mL, Intravenous, Once, 1 dose, On Sat03/31/25 at 0115, Administer over 2 Hours, Routine Rate/Dose Verify 03/31/2025 2:00 AM EDT 500 mL/hr Rate/Dose Verify 03/31/2025 1:00 AM EDT 500 mL/ hr New Bag 03/31/2025 12:27 AM EDT 1,000 mL 500 mL/hr lactated Ringer's bolus 500 mL 500 mL, Intravenous, Once, 1 dose, On Sat03/29/25 at 2000, Administer over 30 Minutes, Routine New Bag 03/29/2025 7:30 PM EDT 500 mL 1000 mL/hr lactated Ringer's bolus 500 mL 500 mL, Intravenous, Once, 1 dose, On Sat03/30/25 at 1015, Administer over 30 Minutes, Routine New Bag 03/30/2025 9:30 AM EDT 500 mL 1000 mL/hr lactated Ringer's infusion 75 mL/hr, Intravenous, Continuous, Starting on Sat03/25/25 at 1615, Until Sat03/26/25 at 0046, Routine New Bag 03/25/2025 4:47 PM EDT 75 mL/hr 75 mL/hr lactated Ringer's infusion 75 mL/hr, Intravenous, Continuous, Starting on Sat03/29/25 at 1945, Until Sat03/30/25 at 0728, Routine Rate/Dose Verify 03/30/2025 6:00 AM EDT 75 mL/hr 75 mL/hr Rate/Dose Verify 03/30/2025 5:00 AM EDT 75 mL/hr 75 mL/h r Rate/Dose Verify 03/30/2025 4:00 AM EDT 75 mL/hr 75 mL/h r magnesium sulfate IVPB 2 g 2 g, Intravenous, Once, 1 dose, On Sat03/30/25 at 1300, Routine New Bag 03/30/2025 12:38 PM EDT 2 g 2 5 mL/hr melatonin tablet 6 mg 6 mg, Oral, Nightly PRN, Starting on Sat03/25/25 at 1526, Until Sat04/02/25 at 1605, Routine, sleep Given 04/01/2025 7:50 PM EDT 6 mg Given 03/31/2025 8:18 PM EDT 6 mg Given 03/28/2025 10:17 PM EDT 6 mg methocarbamol (Robaxin) tablet 500 mg 500 mg, Oral, 3 times daily, First dose on Sat03/29/25 at 1900, Until Discontinued, Routine, Recovery(Phase II-Outpatient)/On Unit(Inpatient) Given 03/30/2025 8:23 AM EDT 500 mg Given 03/29/2025 10:13 PM EDT 500 mg mupirocin (Bactroban) 2 % ointment 1 Application Each Nostril, 2 times daily, 10 doses, First dose on Sat03/29/25 at 2300, Last dose on Sat04/03/25 at 0900, Routine Given 04/02/2025 8:29 AM EDT 1 Application Given 04/01/2025 8:33 PM EDT 1 Application Given 04/01/2025 9:52 AM EDT 1 Application norepinephrine 8 mg/250 mL (0.032 mg/mL) infusion 0-0.4 mcg/kg/min 80.8 kg (0-60.6 mL/hr), 0.032 mg/mL, Intravenous, Titrated, Starting on Sat03/30/25 at 1115, Until Sat04/01/25 at 0552, STAT Rate/Dose Change 03/31/2025 10:46 AM EDT 0.01 mcg/kg/min 1.52 mL/hr Rate/Dose Verify 03/31/2025 10:00 AM EDT 0.02 mcg/kg/min 3 .03 mL/hr New Bag 03/31/2025 9:59 AM EDT 0.02 mcg/kg/min 3.03 mL/ hr norepinephrine (Levophed) 0.032 mg/mL infusion - Pyxis Override Pull 1 dose, Starting on Sat03/30/25 at 0925, Until Sat03/30/25 at 1022 New Bag 03/30/2025 10:22 AM EDT 8 mg ondansetron (Zofran) 4 MG/5ML solution 4 mg 4 mg, Oral, Every 6 hours PRN, Starting on Sat03/25/25 at 1526, Until Sat04/02/25 at 1605, Routine, nausea, vomiting ondansetron (Zofran) injection 4 mg 4 mg, Intravenous, Every 6 hours PRN, Starting on Sat03/25/25 at 1526, Until Sat04/02/25 at 1605, Routine, vomiting, nausea ondansetron ODT (Zofran-ODT) disintegrating tablet 4 mg 4 mg, Oral, Every 6 hours PRN, Starting on Sat03/25/25 at 1526, Until Sat04/02/25 at 1605, Routine, nausea, vomiting oxybutynin XL (Ditropan-XL) 24 hr tablet 10 mg 10 mg, Oral, Every morning, First dose on Sat03/26/25 at 0600, Until Discontinued Given 03/30/2025 5:19 AM EDT 10 m g Given 03/29/2025 6:19 AM EDT 10 mg Given 03/28/2025 6:02 AM EDT 10 mg oxybutynin XL (Ditropan-XL) 24 hr tablet 10 mg 10 mg, Oral, Daily, First dose (after last modification) on Sat03/31/25 at 0900, Until Discontinued Given 04/02/2025 8:29 AM EDT 10 mg Given 04/01/2025 9:30 AM EDT 10 mg Given 03/31/2025 8:35 AM EDT 10 mg perflutren lipid microspheres (Definity) injection 5.2812 mg 5.2812 mg (rounded from 5.2682 mg = 10 mcL/kg 80.8 kg), Intravenous, Once in imaging, 1 dose, Starting on Sat03/29/25 at 0813, Until Sat03/29/25 at 0749, Routine Given 03/29/2025 7:49 AM EDT 5.2812 mg Right Hand phosphorus (K Phos Neutral) tablet 1 tablet 1 tablet (250 mg), Oral, Daily, First dose on Sat04/02/25 at 0900, Until Discontinued, Routine Given 04/02/2025 8:29 AM EDT 1 tablet potassium chloride CR (Klor-Con) ER tablet 20 mEq 20 mEq, Oral, Once, 1 dose, On Sat04/01/25 at 0630, Routine Given 04/01/2025 5:46 AM EDT 20 mEq potassium chloride CR (Klor-Con) ER tablet 40 mEq 40 mEq, Oral, Once, 1 dose, On Sat03/29/25 at 0530, Routine Given 03/29/2025 6:19 AM EDT 40 mEq potassium chloride CR (Klor-Con) ER tablet 40 mEq 40 mEq, Oral, Once, 1 dose, On Sat04/01/25 at 0515, Routine Given 04/01/2025 4:38 AM EDT 40 mEq potassium chloride CR (Klor-Con) ER tablet 40 mEq 40 mEq, Oral, Once, 1 dose, On Sat04/02/25 at 0345, Routine Given 04/02/2025 3:12 AM EDT 40 mEq Povidone-Iodine 5 % swab solution 1 Application Nasal, Once, 1 dose, On Sat03/25/25 at 1215, Routine Given 03/25/2025 11:37 AM EDT 1 Application Povidone-Iodine 5 % swab solution 1 Application Nasal, Once, 1 dose, On Sat03/29/25 at 1100, Routine Given 03/29/2025 11:12 AM EDT 1 Application predniSONE (Deltasone) tablet 5 mg 5 mg, Oral, Every morning, First dose on Sat03/26/25 at 0600, Until Discontinued, Routine Given 03/30/2025 5:18 AM EDT 5 mg Given 03/29/2025 6:19 AM EDT 5 mg Given 03/28/2025 6:01 AM EDT 5 mg predniSONE (Deltasone) tablet 5 mg 5 mg, Oral, Daily, First dose (after last modification) on Sat03/31/25 at 0900, Until Discontinued, Routine Given 04/02/2025 8:29 AM EDT 5 mg Given 04/01/2025 9:19 AM EDT 5 mg Given 03/31/2025 8:35 AM EDT 5 mg pregabalin (Lyrica) capsule 100 mg 100 mg, Oral, 2 times daily, First dose on Sat03/25/25 at 2100, Until Discontinued, Routine Given 04/02/2025 8:29 AM EDT 100 mg Given 04/01/2025 8:33 PM EDT 100 mg Given 04/01/2025 9:19 AM EDT 100 mg senna (Senokot) tablet 17.2 mg 17.2 mg (2 tablet), Oral, Nightly, First dose on Diane 03/25/25 at 2100, Until Discontinued, Routine Given 04/01/2025 8:33 PM EDT 17.2 mg Given 03/30/2025 8:23 PM EDT 17.2 mg Given 03/29/2025 10:13 PM EDT 17.2 mg sodium chloride 0.9 % bolus 250 mL 250 mL, Intravenous, Once, 1 dose, On Sat03/31/25 at 1200, Administer over 60 Minutes, Routine Rate/Dose Verify 03/31/2025 12:00 PM EDT 250 mL/hr New Bag 03/31/2025 11:30 AM EDT 250 mL 250 mL/hr sodium chloride 0.9 % bolus 250 mL 250 mL, Intravenous, Once, 1 dose, On Sat03/31/25 at 1630, Administer over 60 Minutes, Routine New Bag 03/31/2025 4:37 PM EDT 250 mL 250 mL/hr Sodium Phosphate-NaCl IVPB 15 mmol 15 mmol, Intravenous, Once, 1 dose, On Diane 04/01/25 at 1745, Routine Given 04/01/2025 6:21 PM EDT 15 mmol 62.5 mL/hr sodium phosphates 30 mmol in sodium chloride 0.9 % 500 mL IVPB 30 mmol, Intravenous, Once, 1 dose, On Sat03/30/25 at 1300, Routine Rate/Dose Verify 03/30/2025 6:00 PM EDT 92.5 mL/hr Rate/Dose Verify 03/30/2025 5:00 PM EDT 92.5 mL /hr Rate/Dose Verify 03/30/2025 4:00 PM EDT 92.5 mL /hr sodium phosphates 30 mmol in sodium chloride 0.9 % 500 mL IVPB 30 mmol, Intravenous, Once, 1 dose, On Diane 04/01/25 at 0515, Routine Rate/Dose Verify 04/01/2025 8:00 AM EDT 138.8 mL/hr Rate/Dose Verify 04/01/2025 7:00 AM EDT 138.8 m L/hr New Bag 04/01/2025 5:47 AM EDT 30 mmol 138.8 mL/hr sodium phosphates 30 mmol in sodium chloride 0.9 % 500 mL IVPB 30 mmol, Intravenous, Once, 1 dose, On Sat04/02/25 at 0345, Routine New Bag 04/02/2025 3:51 AM EDT 30 mmol 138.8 mL/hr documented in this encounter Active and Recently Administered Medications Times are shown in EDT. Scheduled Medication Order 03/31/2025 04/01/2025 04/02/2025 acetaminophen (Tylenol) tablet 1,000 mg 1,000 mg, Oral, Every 8 hours, First dose on Diane 03/25/25 at 1615, Until Discontinued, Routine 0835 (Given - Provider: Tsering Marie RN)1637 (Given - Provider: Tsering Marie RN) 0101 (Not Given - Provider: Rolando Montero - Reason: Patient/family refused - Comment: Patient did not wish to take this medication; Patient states he has no pain.\)0918 (Given - Provider: Tsering Marie RN - Comment: pt on bedpan)1820 (Given - Provider: Aruna Kennedy RN - Comment: patient intitially refused dose, but is requesting it now because he doesnt feel good ) 0204 (Not Given - Provider: Rolando Montero - Reason: Patient/family refused - Comment: Patient did not wish to take; States he is experiencing no pain)0747 (Not Given - Provider: Jovon Nicole RN - Reason: Patient/family refused) apixaban (Eliquis) tablet 5 mg 5 mg, Oral, 2 times daily, First dose on Sat03/31/25 at 1200, Until Discontinued, Routine 1128 (Given - Provider: Tsering Marie RN)2019 (Given - Provider: Rolando Montero) 0919 (Given - Provider: Tsering Marie RN - Comment: pt on bedpan)203 (Given - Provider: Rolando Montero) 0829 (Given - Provider: Jovon Nicole RN) bisoprolol (Zebeta) tablet 5 mg 5 mg, Oral, Daily, First dose on Sat04/01/25 at 1915, Until Discontinued, Routine 1830 (Not Given - Provider: Aruna Kennedy, [place] - Reason: Order changed)1950 (Given - Provider: Rolando Montero) 0829 (Given - Provider: Jovon Nicole RN) cadexomer iodine (Iodosorb) 0.9 % gel Topical, Daily, First dose on Sat03/26/25 at 1415, Until Discontinued, Routine 1639 (Given - Provider: Tsering Marie RN) 1230 (Given - Provider: Aruna Kennedy, [place] - Comment: used when patient bathed) 1206 (Given - Provider: Jalyn White, [place]) calcium-vitamin D 500-200 MG-UNIT per tablet 1 tablet 1 tablet, Oral, Daily, First dose on Sat03/26/25 at 0900, Until Discontinued, Routine 0835 (Given - Provider: Tsering Marie RN) 0919 (Given - Provider: Tsering Marie RN - Comment: pt on bedpan) 0829 (Given - Provider: Jovon Nicole RN) clopidogrel (Plavix) tablet 75 mg 75 mg, Oral, Daily, First dose on Sat03/31/25 at 0900, Until Discontinued, Routine 0835 (Given - Provider: Tsering Marie RN) 0919 (Given - Provider: Tsering Marie RN - Comment: pt on bedpan) 0829 (Given - Provider: Jovon Nicole RN) cyanocobalamin (Vitamin B-12) tablet 1,000 mcg 1,000 mcg, Oral, Daily with lunch, First dose on Sat03/26/25 at 1200, Until Discontinued 1128 (Given - Provider: Tsering Marie RN) 1224 (Given - Provider: Aruna Kennedy, [place]) 1252 (Given - Provider: Jalyn White, [place]) docusate sodium (Colace) capsule 100 mg 100 mg, Oral, 2 times daily, First dose on Sat03/25/25 at 2100, Until Discontinued, Routine 0835 (Given - Provider: Tsering Marie RN)2157 (Not Given - Provider: Rolando Montero - Reason: Patient/family refused - Comment: Patient educated on importance of regular BM;) 918 (Given - Provider: Tsering Marie RN - Comment: pt on bedpan)2032 (Given - Provider: Rolando Montero) 828 (Given - Provider: Jovon Nicole, RN) ferrous sulfate EC tablet 324 mg 324 mg, Oral, Daily with breakfast, First dose on Sat03/26/25 at 0800, Until Discontinued 834 (Given - Provider: Tsering Marie RN) 918 (Given - Provider: Tsering Marie RN - Comment: pt on bedpan) 828 (Given - Provider: Jovon Nicole, RN) Srinath powder 1 packet 1 packet, Oral, 2 times daily, First dose on Sat04/02/25 at 0915, Until Discontinued, Routine 08 (Given - Provider: Jovon Nicole RN) lactated Ringer's bolus 1,000 mL (COMPLETED) 1,000 mL, Intravenous, Once, 1 dose, On Sat03/31/25 at 0115, Administer over 2 Hours, Routine 0027 (New Bag - Provider: Mayela Hazel)0100 (Rate/Dose Verify - Provider: Mayela Hazel)0200 (Rate/Dose Verify - Provider: Mayela Hazel) mupirocin (Bactroban) 2 % ointment 1 Application Each Nostril, 2 times daily, 10 doses, First dose on Sat03/29/25 at 2300, Last dose on Sat04/03/25 at 0900, Routine 0835 (Given - Provider: Tsering Marie RN)2018 (Given - Provider: Rolando Montero) 951 (Given - Provider: Tsering Marie RN)2032 (Given - Provider: Rolando Montero) 828 (Given - Provider: Jovon Nicole RN) oxybutynin XL (Ditropan-XL) 24 hr tablet 10 mg 10 mg, Oral, Daily, First dose (after last modification) on Sat03/31/25 at 0900, Until Discontinued 834 (Given - Provider: Tsering Marie RN) 929 (Given - Provider: Tsering Marie RN) 0829 (Given - Provider: Jovon Nicole RN) phosphorus (K Phos Neutral) tablet 1 tablet 1 tablet (250 mg), Oral, Daily, First dose on Sat04/02/25 at 0900, Until Discontinued, Routine 0829 (Given - Provider: Jovon Nicole RN) potassium chloride CR (Klor-Con) ER tablet 20 mEq (COMPLETED)(Linked Group 1) 20 mEq, Oral, Once, 1 dose, On Sat04/01/25 at 0630, Routine 0546 (Given - Provider: Rolando Montero) potassium chloride CR (Klor-Con) ER tablet 40 mEq (COMPLETED)(Linked Group 1) 40 mEq, Oral, Once, 1 dose, On Sat04/01/25 at 0515, Routine 0438 (Given - Provider: Rolando Montero) potassium chloride CR (Klor-Con) ER tablet 40 mEq (COMPLETED) 40 mEq, Oral, Once, 1 dose, On Sat04/02/25 at 0345, Routine 0312 (Given - Provider: Rolando Montreo) predniSONE (Deltasone) tablet 5 mg 5 mg, Oral, Daily, First dose (after last modification) on Sat03/31/25 at 0900, Until Discontinued, Routine 0835 (Given - Provider: Tsering Marie RN) 0919 (Given - Provider: Tsering Marie RN - Comment: pt on bedpan) 08 (Given - Provider: Jovon Nicole RN) pregabalin (Lyrica) capsule 100 mg 100 mg, Oral, 2 times daily, First dose on Sat03/25/25 at 2100, Until Discontinued, Routine 0835 (Given - Provider: Tesring Marie RN)2019 (Given - Provider: Rolando Montero) 0919 (Given - Provider: Tsering Marie RN - Comment: pt on bedpan)2032 (Given - Provider: Rolando Montero) 0829 (Given - Provider: Jovon Nicole RN) senna (Senokot) tablet 17.2 mg 17.2 mg (2 tablet), Oral, Nightly, First dose on Sat03/25/25 at 2100, Until Discontinued, Routine 2158 (Not Given - Provider: Rolando Montero - Reason: Patient/family refused - Comment: Patient educated on importance of regular BM;) 2032 (Given - Provider: Rolando Montero) sodium chloride 0.9 % bolus 250 mL (COMPLETED) 250 mL, Intravenous, Once, 1 dose, On Sat03/31/25 at 1200, Administer over 60 Minutes, Routine 1130 (New Bag - Provider: Tsering Marie, RN)1200 (Rate/Dose Verify - Provider: Tsering Marie, RN) sodium chloride 0.9 % bolus 250 mL (COMPLETED) 250 mL, Intravenous, Once, 1 dose, On Sat03/31/25 at 1630, Administer over 60 Minutes, Routine 1637 (New Bag - Provider: Tsering Marie, RN) Sodium Phosphate-NaCl IVPB 15 mmol (COMPLETED) 15 mmol, Intravenous, Once, 1 dose, On Diane 04/01/25 at 1745, Routine 1821 (Given - Provider: Aruna Kennedy, [place]) sodium phosphates 30 mmol in sodium chloride 0.9 % 500 mL IVPB (COMPLETED) 30 mmol, Intravenous, Once, 1 dose, On Sat04/01/25 at 0515, Routine 0547 (New Bag - Provider: Rolando Montero)0700 (Rate/Dose Verify - Provider: Tsering Marie, [place])0800 (Rate/Dose Verify - Provider: Tsering Marie, RN) sodium phosphates 30 mmol in sodium chloride 0.9 % 500 mL IVPB (COMPLETED) 30 mmol, Intravenous, Once, 1 dose, On Sat04/02/25 at 0345, Routine 0351 (New Bag - Provider: Rolando Montero) Continuous Medication Order 03/31/2025 04/01/2025 04/02/2025 heparin 25,000 units/250 mL (100 unit/mL) infusion - Adult Full Dose Protocol (CANCELED) 0-35 Units/kg/hr 80.8 kg (0-28.28 mL/hr, rounded to 0-28.3 mL/hr), Intravenous, Titrated, Starting on Sat03/30/25 at 0115, Until Sat03/31/25 at 1105, Routine 0000 (Rate/Dose Verify - Provider: Mayela Hazel)0100 (Rate/Dose Verify - Provider: Mayela Hazel)0200 (Rate/Dose Verify - Provider: Mayela Hazel)0300 (Rate/Dose Verify - Provider: Mayela Hazel)0400 (Rate/Dose Verify - Provider: Mayela Hazel)0500 (Rate/Dose Verify - Provider: Mayela Hazel)0600 (Rate/Dose Verify - Provider: Mayela Hazel)0700 (Rate/Dose Verify - Provider: Tsering Marie RN)0800 (Rate/Dose Verify - Provider: Tsering Marie RN)0900 (Rate/Dose Verify - Provider: Tsering Marie RN)1000 (Rate/Dose Verify - Provider: Tsering Marie RN)1100 (Rate/Dose Verify - Provider: Tsering Marie RN)1132 (Stopped - Provider: Tsering Marie RN) norepinephrine 8 mg/250 mL (0.032 mg/mL) infusion (CANCELED) 0-0.4 mcg/kg/min 80.8 kg (0-60.6 mL/hr), 0.032 mg/mL, Intravenous, Titrated, Starting on Sat03/30/25 at 1115, Until Sat04/01/25 at 0552, STAT 0000 (Rate/Dose Change - Provider: Mayela Hazel)0015 (Rate/Dose Change - Provider: Mayela Hazel)0100 (Rate/Dose Verify - Provider: Mayela Hazel)0200 (Rate/Dose Verify - Provider: Mayela Hazel)0300 (Rate/Dose Verify - Provider: Mayela Hazel)0315 (Rate/Dose Change - Provider: Mayela Hazel)0400 (Rate/Dose Verify - Provider: Mayela Hazel)0420 (Rate/Dose Change - Provider: Mayela Hazel)0500 (Rate/Dose Verify - Provider: Mayela Hazel)0530 (Rate/Dose Change - Provider: Mayela Hazel)0545 (Rate/Dose Change - Provider: Mayela Hazel)0600 (Rate/Dose Change - Provider: Mayela Hazel)0700 (Rate/Dose Verify - Provider: Tsering Marie RN)0800 (Rate/Dose Verify - Provider: Tsering Marie RN)0804 (Stopped - Provider: Tsering Marie RN - Comment: MD AT BEDSIDE AND TURNED OFF DRIP)0973 (New Bag - Provider: Tsering Marie RN - Comment: MAP 50)1000 (Rate/Dose Verify - Provider: Tsering Marie RN)1046 (Rate/Dose Change - Provider: Tsering Marie RN - Comment: MAP 70)1053 (Stopped - Provider: Tsering Marie RN) PRN Medication Order 03/31/2025 04/01/2025 04/02/2025 hydrALAZINE (Apresoline) injection 10 mg (CANCELED) 10 mg, Intravenous, Every 1 - 2 hours prn, Starting on Diane 04/01/25 at 1608, Until Diane 04/01/25 at 1825, Routine, high blood pressure, goal systolic BP less than 160 1615 (Given - Provider: Aruna Kennedy RN) melatonin tablet 6 mg 6 mg, Oral, Nightly PRN, Starting on Diane 03/25/25 at 1526, Until Sat04/02/25 at 1605, Routine, sleep 2018 (Given - Provider: Rolando Montero) 1950 (Given - Provider: Rolando Montero) ondansetron (Zofran) 4 MG/5ML solution 4 mg(Linked Group 2) 4 mg, Oral, Every 6 hours PRN, Starting on Diane 03/25/25 at 1526, Until Sat04/02/25 at 1605, Routine, nausea, vomiting ondansetron (Zofran) injection 4 mg(Linked Group 2) 4 mg, Intravenous, Every 6 hours PRN, Starting on Diane 03/25/25 at 1526, Until Sat04/02/25 at 1605, Routine, vomiting, nausea ondansetron ODT (Zofran-ODT) disintegrating tablet 4 mg(Linked Group 2) 4 mg, Oral, Every 6 hours PRN, Starting on Diane 03/25/25 at 1526, Until Sat04/02/25 at 1605, Routine, nausea, vomiting Linked Groups Order Group 1: potassium chloride CR (Klor-Con) ER tablet 40 mEq (COMPLETED)Jump to med 40 mEq, Oral, Once, 1 dose, On Diane 04/01/25 at 0515, Routine Followed by potassium chloride CR (Klor-Con) ER tablet 20 mEq (COMPLETED)Jump to med 20 mEq, Oral, Once, 1 dose, On Diane 04/01/25 at 0630, Routine Group 2: ondansetron ODT (Zofran-ODT) disintegrating tablet 4 mgJump to med 4 mg, Oral, Every 6 hours PRN, Starting on Diane 03/25/25 at 1526, Until Sat04/02/25 at 1605, Routine, nausea, vomiting Or ondansetron (Zofran) injection 4 mgJump to med 4 mg, Intravenous, Every 6 hours PRN, Starting on Diane 03/25/25 at 1526, Until Sat04/02/25 at 1605, Routine, vomiting, nausea Or ondansetron (Zofran) 4 MG/5ML solution 4 mgJump to med 4 mg, Oral, Every 6 hours PRN, Starting on Diane 03/25/25 at 1526, Until Sat04/02/25 at 1605, Routine, nausea, vomiting documented in this encounter Additional Health Concerns Active Problems Noted Date Diagnosed Date Autogenerated Problem 03/17/2025 Assessment Noted Time A fall risk assessment has been complete d for the patient 03/17/2025 10:48 AM EDT A Body Mass Index follow-up plan has been documented for the patient 04/02/2025 12:12 PM EDT documented as of this encounter Care Teams Rehab Spec Relationship Specialty Start Date End Date Josee Preciado APRN [address] [place] [address] PCP - General 03/15/25 documented as of this encounter
--- OUTSIDE RECORDS SUMMARY | 2025-03-29 10:30 | XMS_ITS | Encounter Summary ---
Author Organization [facility] Address [address] [place] [address] Care Team Providers Care Cloth Shader Name Role Phone Josee Preciado APRN Primary Care Provider [phone] Reason for Visit * Auth/Cert (Routine) Specialty Diagnoses / Procedures Referred By Contchintan t Referred To Contact Diagnoses Ischemic ulcer, 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) Peripheral arterial disease Ischemic ulcer, 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) [L98.491] Peripheral arterial disease (CMS/HCC) [I73.9] Procedures RI REVASCULARIZE ILIAC ARTERY,ANGIOPLASTY, INITIAL VESSEL RI VEIN BYPASS GRAFT,FEM-TIBIAL Lower Extremity Angioplasty +/- Stent CREATION, BYPASS, ARTERIAL, FEMORAL TO POSTERIOR TIBIAL, PERONEAL, OR DORSALIS PEDIS Fabián Salgado MD [id number] [place] [address] Phone: tel: fax: [facility] [address] [place] [address] Phone: tel: Referral ID Status Reason Start Date Expiration Date Visits Re quested Visits Authorized [id number] 1 1 Encounter Details Date Type Department Care Team (Late st Contact Info) Description 03/29/2025 11:30 AM EDT - 03/29/2025 2:50 PM EDT Surgery [facility] [address] [place] [id number] Kana Maddox MD [id number] [place] [address] Left lower extremity femoral to distal arterial bypass, femoral endarterectomy Surgery Details Date/Time Status Location OR Service Patient Class Case Class Case Type Trauma Case? 03/29/2025 11:30 AM Posted [facility] OR 16 Vascular Surgery Inpatient E-Electi ve Panel 1 Procedure LRB Anes Op Region Wound Class Comments Left lower extremity femoral to distal arterial bypass, femoral endarterectomy Left General Leg Lower Class I/ Clean Left lower extremity femoral to distal arterial bypass with vein, femoral endarterectomy Surgeon Surgeon Role Service Panel Kana Maddox MD Primary Vascular Surgery 1 Koki Pruitt, DO Fellow 1 documented in this encounter Social History Tobacco Use Types Packs/Day Years [...] any time in the past 12 m [facility], were you homeless or living in a [facility] (including now)? No 03/26/2025 [facility] Utilities Answer Date Recorded In [...] Sign Reading Time Taken Comments Blood Pressure 162/76 03/29/2025 10:15 AM EDT Pulse 63 03/29/2025 10:15 AM EDT Temperature 36.8 C (98.2 F) 03/29/2025 10:15 AM EDT Respiratory Rate 16 03/29/2025 10:15 AM EDT Oxygen Saturation 100% 03/29/2025 10:15 AM EDT Inhaled Oxygen Concentration - - Weight 80.8 kg (178 lb 2.1 oz) 03/29/2025 7:21 A M EDT Height 185.4 cm (6' 0.99 ) 03/29/2025 7:21 AM ED T Body Mass Index 23.51 03/29/2025 7:21 AM EDT documented in this encounter Functional Status * Calculated C-SSRS Risk Score (Lifetime/Recent) Answer Date of Assessment Author No Risk Indicated 03/29/2025 8:00 AM EDT Ashley Lizama RN * Question Answer Date of Assessment Author 1. Wish to be (Past 1 Month) No 025 8:00 AM Ashley Petersen RN 2. Non-Specific Active Suici peyton Thoughts (Past 1 Month) No 03/29/2025 8:00 AM Ashley Petersen, MERCEDES 6. Suicidal Behavior (Lifetime) No 8:00 AM Ashley Petersen RN documented as of this encounter Medications [...] Belem Cota PCP name and Address: Josee Preciado nAdre, TRANSIT CLERK [address] [facility] / [place] [address] Referring provider name and address: No referring provider defined for this encounter. Chief Concern, Brief History of Present Illness, and Hospital Course Nicko Baumann is a 84 y.o. male who presented to [facility] on 03/25/2025 for planned procedure to [...] Putnam with any questions or concerns at [phone]. It is important that you get your [...] Hearing normal. Nose: Nose normal. Mouth/Throat: Lips: Bergman. Mouth: Mucous membranes are moist. Eyes: Pupils: [...] this discharge. * Progress Notes - Therese Gabriel - 04/02/2025 9:06 AM EDT Case Management Discharge Note Nicko Baumann 84 y.o. male CSN: [id number] Admission: 03/25/2025 9:13 AM Primary Problem: Peripheral arterial disease Primary Scale Manager: Primary Caregiver: Self Assistance Available at Discharge: Current Outpatient/Agency/Support Group: DME Availability of Care Givers (#Hours): 24 hours Housing Circumstances-Z Codes: Housing Circumstances (select all that apply): None Applicable Patient Referred to Financial or Community Resources: N/A Discharge Facility/Level of Care Needs: Discharge Facility/Level of Care Needs: 62-Rehab facilty ([facility]) Patient's Choice of Community Agency(s): N/A Patient/Family [...] Family/Friend will Provide, Self Additional Comments: Report [phone] Caro Gabriel HISTOLOGICAL ILLUSTRATOR * Care Plan - Jovon Nicole RN [...] Note Nicko Baumann 84 y.o. male CSN: [id number] Room/Bed 136/136A Nutrition evaluation type: assessment Reason for evaluation: [facility] Hospital course: 84 yo M admitted with [...] Supplemental oxygen O2 Delivery Method: Nasal cannula Boyds Coma Scale Score: 14 Jacob Scale Score: [...] (Calculated): 23.51 Weight Evaluation: Normal (BMI 18.5-24.9) Landers Body Weight (kg): 83.63 Percent Landers Body Weight: 96 Estimated Needs: Metabolic Cart Study Results: Current Nutrition Intake: Diet Supplements: Impact AR Diet Order: Adult Diet Diet Texture: Regular Percent Meals Eaten (%): not recorded well, 100% of 1 meal recorded over 7 days of admission Diet Experience and Nutrition History: Diet Education Provided: Will monitor Pertinent home medications: Pentecostalism needs: Nutrition Focused Physical Exam: Physical exam [...] Oral, Nightly * Progress Notes - Therese Gabriel - 04/01/2025 11:21 AM EDT Case Management Adult Progress Note Nicko Baumann 84 y.o. male CSN: [id number] Admission: 03/25/2025 9:13 AM Primary Problem: Peripheral arterial disease Patient is medically ready for discharge. [facility] recs, patient's spouse only agreeable to [facility] at this time. Referral sent. SW will continue to follow. 1:40p [facility] can accept patient tomorrow 04/02. Ambulance pending. 2p Ambulance at 1pm 04/02 Report [phone] Caro De La Cruz Therese Gabriel HISTOLOGICAL ILLUSTRATOR * Progress Notes - Roselyn Contreras, TRANSIT CLERK - 04/01/2025 9:08 AM EDT Images from the original note were not included. Vascular Surgery Progress Note History of Present Illness: 84 y.o. male who presented to [facility] on 03/25/2025 for planned procedure to [...] and benefits, patient wished to proceed with surgicalintervention and presented as planned for the followin03/25/2025 [...] Hearing normal. Nose: Nose normal. Mouth/Throat: Lips: Bergman. Mouth: Mucous membranes are moist. Eyes: Pupils: [...] day. Please notify the on-call resident or TRANSIT CLERK with any questions or concerns. Notify Roselyn Contreras Vascular Surgery TRANSIT CLERK for any questions or concerns via secure chat, office ([phone]), pager [phone]. Please page for any emergent concerns or [...] - 9:28 AM * Care Plan - Rolando Montero - 04/01/2025 5:54 AM EDT Problem: Adult [...] Transparent semipermeable dressing * Hospital Course - Roselyn Contreras APRN - 03/31/2025 2:29 PM EDT Nicko Baumann is a 84 y.o. male who presented to [facility] on 03/25/2025 for planned procedure to [...] Protection Flowsheets Taken 03/31/2025 1000 by Tsering aMrie RN Activity Management: activity encouraged Head of [...] Progressing * Progress Notes - Roselyn Contreras, TRANSIT CLERK - 03/31/2025 10:54 AM EDTAssociated Order(s): Critical Care Post-Procedure Diagnose(s): Electrolyte imbalance; Postoperative hypotension; Peripheral arterial disease; History of prostate cancer; Ischemic ulcer, 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); Coronaryartery disease involving crow heart without angina pectoris, unspecified vessel or lesion type Images from the original note were not included. Vascular Surgery Progress Note History of Present Illness: 84 y.o. male who presented to [facility] on 03/25/2025 for planned procedure to [...] Hearing normal. Nose: Nose normal. Mouth/Throat: Lips: Bergman. Mouth: Mucous membranes are moist. Eyes: Pupils: [...] day. Please notify the on-call resident or TRANSIT CLERK with any questions or concerns. Notify Roselyn Contreras Vascular Surgery TRANSIT CLERK for any questions or concerns via secure chat, office ([phone]), pager [phone]. Please page for any emergent concerns or [...] AM * Progress Notes - Jalyn Vidal - 03/31/2025 9:59 AM EDT Occupational Therapy Evaluation Patient Name: Nicko Baumann Today's Date: 03/31/2025 Total Treatment Time: 38 minutes OT Discharge Recommendations: Subacute rehab Equipment Recommended: Defer to facility History Nicko Baumann is 84 y.o. male admitted 03/25/2025 for work-up of Peripheral arterial disease. Hospital Course 1. Peripheral arterial disease (CMS/[facility]) 2. Postoperative hypotension 3. Ischemic ulcer, 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) 4. Hypophosphatemia 5. Hypomagnesemia 6. History of prostate cancer 7. 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 Participants in Care Family/Caregiver Present: No Chemist Internship: Not Applicable Presentation Oxygen Therapy: Supplemental oxygen [...] present at time of initial evaluation. Per HISTOLOGICAL ILLUSTRATOR (Therese Gabriel) note, patient requires MINassist at baseline for overall functional status. Prior Level of Function Receives Help From: Spouse Level of Mobility: Ambulatory- household only Mobility [place]: Independent gait with device (cane) History of [...] Mobility Bed Mobility Exam: Rolling/Turning Level of [place]: Dependent (bilaterally) Physical/Nonphysical Assist: Set-up required, Verbal Cues, Nonverbal cues (demo/gestures), Maximal cues, Additional assist utilized for safety Assistive Device: Bed rails, Other (draw sheet) Bed Mobility Exam: Scooting/Bridging Level of [place]: Dependent (anteriorly to EOB; to HOB) Physical/Nonphysical Assist: Set-up required, Verbal Cues, Nonverbal cues (demo/gestures), Maximal cues, Additional assist utilized for safety Assistive Device: Other (draw sheet) Bed Mobility Exam: Supine to Sit Level of [place]: Dependent Physical/Nonphysical Assist: Set-up required, Verbal Cues, Nonverbal cues (demo/gestures), Maximal cues, HOB elevated, Additional assist utilized for safety Assistive Device: Other (draw sheet) Bed Mobility Exam: Sit to Supine Level of [place]: Dependent Physical/Nonphysical Assist: Verbal Cues, Nonverbal cues [...] currently has urinary catheter present. Standardized Assessments [facility] 6-Click Daily Activities Help from Other: Don/Doff Regular Lower Body Clothings: Total Help From Other: Bathing: Total Help From Other: Toileting: Total Help From Other: Don/Doff Upper Body Clothings: Total Help From Other: Grooming: Little Help From Other: Eating Meals: Little [facility] 6 Click - Daily Activities Score: 04/23 [facility] Scoring Interpretation: Scores less than 15 suggest [...] prostate cancer 7. 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 Chemist Internship (if applicable) Not Applicable HOME LIVING/SET-UP Lives With Spouse Home Type House Home Equipment Cane, Rollator, Bedside commode, Wheelchair-manual Home Layout One level (no josr) Bathroom Layout Bathroom: Tub/Shower: Shower chair, Built-in shower seat Bathroom: Toilet: Standard Additional Comments questionable historian PRIOR LEVEL OF FUNCTION Assist at Home Spouse Level of Mobility Ambulatory- household only Mobility [place] Independent gait with device (cane) History of [...] Treatment Minutes 23 BED MOBILITY Level of [place] Physical/Non- physical Assist Adaptive Equipment Utilized Rolling/ [...] Weight shift right of midline Level of [place] Balance Support Interventions Static Sit Dependent Right [...] upper extremity support, Feet unsupported STANDARDIZED ASSESSMENTS [facility] 6-Clicks Mobility Assessment Difficulty patient has turning [...] climbing 3-5 steps with a railing?: Unable [facility] 6-Clicks Mobility Assessment Total : 7 ASSESSMENT [...] at 12:48 PM. 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 03/25/25: US guided R [facility]FORMATION [facility]NAGERS access, LLE angio, cath of L TP trunk, balloon angio of L femoral popliteal (Constantine) 03/29/25: left common femoral to posterior tibial bypass with PTFE, L [facility]NAGERS endarterectomy with vein patch angioplasty, left profunda [...] ear normal. Nose: Nose normal. Mouth/Throat: Lips: Bergman. Mouth: Mucous membranes are moist. Eyes: General: [...] Angelica Anderson APRN, DNP Authorized by: Angelica Andreson APRN, DNP Critical care provider statement: Critical [...] day. Please notify the on-call resident or TRANSIT CLERK with any questions or concerns. Notify Angelica Anderson Vascular Surgery TRANSIT CLERK for any questions or concerns via secure chat, office([phone]), pager [phone]. Please page for any emergent concerns or [...] Outcome: Ongoing, Progressing Goal: Patient-Specific Goal (Individualized) 03/30/20251720 by Mariana Cool RN Outcome: Ongoing, [...] Problem: Mobility Impairment Goal: Optimal Mobility 03/30/2025 172 by Mariana Cool RN Outcome: Ongoing, Progressing 03/30/2025 172 by Mariana Cool RN Outcome: Ongoing, Progressing Intervention: Optimize Mobility Flowsheets (Taken 03/30/2025 1200) Activity Management: activity encouraged Positioning/Transfer Devices: pillows Problem: Fluid Volume Deficit Goal: Fluid Balance 03/30/2025 172 by Mariana Cool RN Outcome: Ongoing, Progressing 03/30/2025 172 by Mariana Cool RN Outcome: Ongoing, Progressing Intervention: Monitor and Manage Hypovolemia Flowsheets (Taken 03/30/2025 1200) Fluid/Electrolyte Management: intravenous fluid replacement initiated Problem: Lower Extremity Revascularization Goal: Absence of Bleeding 03/30/2025 172 by Mariana Cool RN Outcome: Ongoing, Progressing Note: Dressing monitored, anticoagulant titrated per lab results 03/30/20251720 by Mariana Cool RN Outcome: Ongoing, [...] clothing lightweight bedding Goal: Effective Urinary Elimination 03/30/20251720 by Mariana Cool RN Outcome: Ongoing, [...] Goal: Absence of Fall and Fall-Related Injury 03/30/20251720 by Mariana Cool RN Outcome: Ongoing, [...] Goal: Absence of Infection Signs and Symptoms 03/30/20251720 by Mariana Cool RN Outcome: Ongoing, [...] a year prescribed by his Urologist in [place]. Per report he is alsogetting Lupron injections [...] CBC, PT-INR * Anesthesia PACU Signout - Bert Lehman CRNA - 03/29/2025 8:38 PM EDT [...] PM EDT Operative Note Date: 03/29/25 Location: [facility] Name: Nicko Baumann, : 1940, Diagnoses: Pre-op Diagnosis Peripheral arterial disease Post-op Diagnosis Peripheral arterial disease Procedure(s): Left lower extremity angiography with interpretation Left common femoral thromboendarterectomy with vein patch Left profunda femoral thromboendarterectomy with vein patch Left common femoral to posterior tibial artery bypass with PTFE and vein cuff of distal anastomosis Attending Surgeon(s): * Kana Maddox - Primary Hebrew Cantor(s): * Koki Pruitt DO - Fellow Anesthesia: General ASA: IV Blood Administration: Blood Product Administration History None Estimated Blood Loss: 300 mL Drains: Urethral Catheter Non-latex 16 Fr. (Active) Implants Type Name Action Serial No. VASCUGUARD 8 X 8 - [id number] Implanted GRAFT PROPATEN RING W/HEP 6X80 - [id number] - [id number] Implanted [id number] Specimen: Findings: Left posterior tibial artery with [...] Surgery Fellow * Progress Notes - Therese Gabriel - 03/29/2025 11:07 AM EDT Case Management Adult Progress Note Nicko Baumann 84 y.o. male CSN: [id number] Admission: 03/25/2025 9:13 AM Primary Problem: Peripheral arterial disease Patient is not medically ready for discharge at this time. In OR today. SW will continue to follow. Therese Gabriel HISTOLOGICAL ILLUSTRATOR * Care Plan - Kvng Penny RN [...] Penny RN Body Position: weight shifting Taken 03/27/20252099 by Kvng Penny RN Skin Protection: incontinence [...] of Bed (HOB) Positioning: HOB elevated Taken 03/27/20252099 by Kvng Penny RN Pressure Reduction Techniques: [...] personal routines maintained * Progress Notes - James, Layne A, MD - 03/28/2025 8:26 AM EDT Images from the original note were not included. [facility] Department of Surgery Division of Vascular Surgery [...] Now planningfor bypass. 03/25/25: US guided R [facility] INFORMATION [facility]NAGERS access, LLE angio, cath of L TP [...] from the original note were not included. [facility] Department of Surgery Division of Vascular Surgery Surgery Progress Note 03/28/25 Nicko Baumann Subjective Subjective: HPI 84 yo male with history of RA, CAD s/p CABG, right LEIX s/p R CEA, left LEXI, prostate cancer who presents to on 03/25/25 for planned surgery with Dr Salgado. Patient with wounds to his left foot. CTA with left popliteal/tibial disease. Went to OR for endo intervention, was unsuccessful. Now planningfor bypass. 03/25/25: US guided R [facility] INFORMATION [facility]NAGERS access, LLE angio, cath of L TP [...] Review Outcome: Ongoing, Progressing Flowsheets (Taken 03/25/2025 8669 by Can Billings RN) Progress: improving Plan of Care Reviewed With: patient Goal: Patient-Specific Goal (Individualized) Outcome: Ongoing, Progressing Flowsheets (Taken 03/26/2025 2395) Patient/Family-Specific Goals (Include Timeframe): Pt will aid [...] Manage Infection Flowsheets (Taken 03/25/2025 2357 by Can Billings RN) Infection Management: aseptic technique maintained Fever [...] mattress utilized * Progress Notes - Therese Gabriel - 03/26/2025 2:47 PM EDT Case Management Adult Initial Progress Note Nicko Baumann 84 y.o. 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 PCP: Josee Preciado APRN Emergency Contact: Extended Emergency Contact Information Primary Emergency Contact: Elena Babin Address: [address] [place] [address] Mobile Relation: Spouse Preferred language: Norwegian Chemist Internship needed? No Insurance: Primary Visit Coverage Payer Plan Sponsor Code Group Number Group Name MEDICARE MEDICARE A & B Primary Visit Coverage Subscriber Subscriber ID Subscriber Name Subscriber SSN Subscriber Address [id number] Nicko Baumann [id number] [place] [address] Secondary Visit Coverage Payer Plan Sponsor Code Group Number Group Name HUMANA HUMANA MEDICARE SUPPLEMENT [id number] Secondary Visit Coverage Subscriber Subscriber ID Subscriber Name Subscriber SSN Subscriber Address [id number] Nicko Baumann [id number] [place] [address] Patient information: Primary Caregiver: Self Support System: Immediate family Daily Living Activities: Functional Status: Minimum assistance Living Arrangements: Spouse/Significant other Type of Residence: Private residence, Single Level [address] [place] [address] Current DME: Equipment Currently Used at Home: kylie gabriel Income Information: Income Source: Retired Income/Expense Information: [...] Dialysis Services: None Living Will/Advance Directive/Power of Media Executive /Guardian: Yes, LW and AD not on file Additional Comments: Patient in OR on Saturday. No SW needs identified. Therese Gabriel HISTOLOGICAL ILLUSTRATOR * Care Plan - Clifford Mazariegos RN - 03/26/2025 2:06 PM EDT Problem: Skin Injury Risk Increased Goal: Skin Health and Integrity Outcome: Ongoing, Progressing Intervention: Optimize Skin Protection Flowsheets (Taken 03/26/2025 1406) Activity Management: activity adjusted per tolerance up in chair Pressure Reduction Devices: chair cushion utilized pressure-redistributing mattress utilized Skin Protection: silicone foam dressing in place Patient evaluated by [facility] nurse, individualized recommendations placed and [...] 03/26/2025 11:00 AM Wound Image Wound Assessment Dry;White;Bergman;Painful Margins Well-defined edges Tiffanie-Wound Assessment Intact Wound [...] prior to follow up. Clifford Mazariegos RN CWOCN 03/26/2025 1:26 PM * Consults - Isrreal Langston MD - 03/26/2025 1:02 PM EDTAssociated [...] carotid stent who initially presented to the [facility] for LLE angiography. Cardiology consulted for [...] follows with Dr. Morin in cardiology in [place]. Records from his care there are not [...] y.o. male who initially presented to the [facility] for LLE angiography. 1) Preoperative risk [...] will sign off. Please page the on-call recovery unit operator with any further questions. I spent 35 minutes performing the following components of the encounter (on the day of the encounter): reviewing History, examining the patient, reviewing imaging and/or labs, Independently interpreting echocardiogram, ECG and/or other imaging results, counseling the patient and family/caregiver, communicating with other health skin care specialist, care coordination, and entering clinical information in the EHR. Greater than 50% of the time spent on the encounter was face to face providing direct patient care, counseling for the patient/caregiver, and care coordination. Isrrael Langston MD Can Solderer [1] Past Medical History: Diagnosis Date Coronary [...] documented. * Progress Notes - Angelica Anderson, TRANSIT CLERK, DNP - 03/26/2025 10:12 AM EDT Images from [...] OR for the followin03/25/25: US guided R [facility] INFORMATION MANAGERS access, LLE angio, cath of L TP [...] day. Please notify the on-call resident or TRANSIT CLERK with any questions or concerns. Notify Angelica Anderson Vascular Surgery TRANSIT CLERK for any questions or concerns via secure chat, office([phone]), pager [phone]. Please page for any emergent concerns or issues needing addressed within 30 minutes. Daily plan of care discussed and agreed upon in collaboration with the vascular surgery team and vascular surgery attending, Dr Wood. Electronically Signed by: Angelica Anderson APRN, SHREYAS - 03/26/2025 - 8:47 PM * Care Plan - Can Billings RN - 03/25/2025 11:58 PM EDT Problem: Adult Inpatient Plan of Care Goal: Plan of Care Review Outcome: Ongoing, Progressing Flowsheets (Taken 03/25/2025 2107) Progress: improving Plan of Care Reviewed With: [...] from the original note were not included. [facility] Department of Surgery Division of Vascular Surgery [...] nursing staff. I have notified senior resident/attending mason tender with any issues or concerns. Surekha Shine [...] PM EDT Operative Note Date: 03/25/25 Location: [facility] Name: Nicko Baumann, : 1940, Diagnoses: [...] Attending Surgeon(s): * Fabián Salgado - Primary Hebrew Cantor(s): * Cornell Solis MD - Fellow * [...] into the abdominal aorta. A short 5 Citizen [place] sheath was inserted followed by an Omni [...] than 250 throughout the case. A 7 [place] 65 cm destination sheath was placed into [...] records but states he follows with a focuser in [place] and [facility]seen [facility] recently. He is currently taking aspirin. He [...] tone, and muscle mass, no deformities Skin: Berg[place], warm, well perfused. Small 5 mm wound [...] Primary Other Visit Diagnoses Peripheral arterial disease (CMS/HCC) Patient is booked for surgery on 03/25/25 . Plan for left lower extremity angiogram with right [facility]NAGERS access with plan for possible angioplasty and [...] Topics Alcohol use: Yes Comment: has an [place] [facility] Drug use: Never [6] Current Outpatient [...] Ischemic ulcer, limited to breakdown of skin ([facility]) [L98.491] * Peripheral arterial disease [I73.9] now scheduled for Lower Extremity Angioplasty +/- Stent (Left), CREATION, BYPASS, ARTERIAL, FEMORAL TO POSTERIOR TIBIAL, PERONEAL, OR DORSALIS PEDIS (Left). Datescheduled is 03/25/2025. Family states no changes in health history since last reviewed on 12/21/2024 Past Medical History[1] Family History[2] Social History[3] SURGICAL HISTORY: Surgical History[4] Allergies[5] MEDICATIONS: Current Medications[6] Omayra Cárdenas, RN [1] Past Medical History: Diagnosis Date [...] before surgery cholecalciferol (Vitamin D-3) 50 MCG (2000 UT) capsule Hold day of surgery Cyanocobalamin [...] Level 3 (ped [address]) Level 1 (Shuttle). [place] [facility]. You MUST have a responsible adult available for transport to and from hospital Visitation policy for the day of surgery reviewed Bring insurance card, photo ID, along with power of civil attorney, guardianship or advanced directives if applicable [...] Info) Description 11/03/2025 12:00 PM EDT Appointment [facility] [address] [place] [address] 11/03/2025 1:00 PM EDT Appointment [facility] [address] [place] [address] 11/03/2025 2:20 PM EDT Office Visit [facility] [address] [place] [address] Kana Maddox MD [address] [facility] [address] [place] [address] Pending Results Name Type Priority Associated Diagnoses Date /Time Prepare Leukocyte Reduced RBC: 2 Units Blood Bank STAT 03/25/2025 12:03 PM EDT Scheduled Referrals Name Type Priority Associated Diagnoses Order Schedule Discharge Ambulatory referral to Vascular Surgery Outpatient Referral Routine Ischemic ulcer, 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) Limb ischemia Peripheral arterial disease Expected: 05/03/2025, [...] UNSOLICITED RESULTS Routine 03/31/2025 6:11 PM EDT [facility] CRITICAL CARE, E/M 30-74 MINUTES Routine 03/31/2025 10:54 AM EDT Peripheral arterial disease (CMS/[facility]) Postoperative hypotension Ischemic ulcer, 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) History of prostate cancer 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, unspecified vessel or [...] PANEL, PLASMA Routine 03/30/2025 7:00 PM EDT RI CRITICAL CARE, E/M 30-74 MINUTES Routine 03/30/2025 6:27 PM EDT Peripheral arterial disease (CMS/HCC) Postoperative hypotension Ischemic ulcer, 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) Hypophosphatemia Hypomagnesemia History of prostate cancer 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 [...] are demonstrated at the level of the HEALTH INFORMATION MANAGERS (imaged on same day arterial duplex). Monophasic waveforms are demonstrated at the levels of the PLASTERER MAINTENANCE and DPA. Vessels are non-compressible at the ankle, consistent with medial calcinosis. Toe pressure of 71 mmHg is obtained. Left: Unable to obtain HE[employer] INFORMATION MANAGERS waveform due to incision site. Monophasic waveforms are demonstrated at the DPA and PLASTERER MAINTENANCE. Segmental pressures are within normal limits with a PLASTERER MAINTENANCE MEGAN of 0.99 (151 mmHg) and a [...] are demonstrated at the level of the HEALTH INFORMATION MANAGERS(imaged on same day arterial duplex). Monophasic waveforms aredemonstrated at the levels of the PLASTERER MAINTENANCE and DPA. Vessels arenon-compressible at the ankle, consistent with medial calcinosis. Toepressure of 71 mmHg is obtained. Left: Unable to obtain HE[employer] INFORMATION MANAGERS waveform due to incision site. Monophasicwaveforms are demonstrated at the DPA and PLASTERER MAINTENANCE. Segmental pressures arewithin normal limits with a PLASTERER MAINTENANCE MEGAN of 0.99 (151 mmHg) and a DPA MEGAN of0.94 (144 mmHg). Digit pressures are 72 mmHg. IMPRESSION: Right: The PLASTERER MAINTENANCE and DPA are non-compressible at the ankle. [...] and patient movement. Unable to visualize the HEALTH INFORMATION MANAGERS, PFA and proximal BPG anastomosis. Arterial duplex demonstrates monophasic waveforms throughout the entirety of the BPG and at the crow PLASTERER MAINTENANCE and DPA. The following flow velocities are recorded: Common femoral artery: not visualized. Profunda femoral artery: not visualized. HEALTH INFORMATION MANAGERS to PLASTERER MAINTENANCE PTFE BPG: Proximal thigh: 72 cm/s Mid [...] suture and patientmovement. Unable to visualize the HEALTH INFORMATION MANAGERS, PFA and proximal BPG anastomosis. Arterial duplex demonstrates monophasic waveforms throughout the entiretyof the BPG and at the crow PLASTERER MAINTENANCE and DPA. The following flow velocitiesare recorded: Common femoral artery: not visualized. Profunda femoral artery: not visualized. HEALTH INFORMATION MANAGERS to PLASTERER MAINTENANCE PTFE BPG: Proximal thigh: 72 cm/s Mid [...] - 4.5 mg/dL 04/02/2025 2:45 AM EDT [facility] Blood Venous blood specimen / Unknown Venipuncture / Unknown 04/02/2025 2:07 AM EDT 04/02/2025 2:15 AM EDT us Roselyn Contreras TRANSIT CLERK LAB BLOOD ORDERABLES Final Res ult [facility] [address] [place] [address] * (ABNORMAL) Comprehensive metabolic panel (04/02/2025 2:07 AM EDT) Glucose, Plasma 128(H) 74 - 99 mg/dL 04/02/2025 2:45 AM EDT [facility] BUN, Plasma 11 8 - 23 mg/dL 04/02/2025 2:45 AM EDT [facility] Creatinine, Plasma 0.68(L) 0.70 - 1.20 mg/dL 04/02/2025 2:45 AM EDT [facility] BUN/Creatinine Ratio 16 04/02/2025 2:45 AM EDT [facility] Sodium, Plasma 141 136 - 145 mmol/L 04/02/2025 2:45 AM EDT [facility] Potassium, Plasma 3.7 3.6 - 4.9 mmol/L 04/02/2025 2:45 AM EDT [facility] Chloride, Plasma 108(H) 97 - 107 mmol/L 04/02/2025 2:45 AM EDT [facility] CO2, Plasma 22 22 - 29 mmol/L 04/02/2025 2:45 AM EDT [facility] Anion Gap 11 6 - 16 mmol/L 04/02/2025 2:45 AM EDT [facility] Total Calcium, Plasma 8.0(L) 8.9 - 10.2 mg/dL 04/02/2025 2:45 AM EDT [facility] Total Protein 5.6(L) 6.3 - 7.9 g/dL 04/02/2025 2:45 AM EDT [facility] Albumin, Plasma 2.7(L) 3.5 - 5.2 g/dL 04/02/2025 2:45 AM EDT [facility] AST, Plasma 30 10 - 50 U/L 04/02/2025 2:45 AM EDT [facility] ALT, Plasma 18 10 - 50 U/L 04/02/2025 2:45 AM EDT [facility] Alkaline Phosphatase, Plasma 53 40 - 115 U/L 04/02/2025 2:45 AM EDT [facility] Total Bilirubin, Plasma 0.5 0.2 - 1.1 mg/dL 04/02/2025 2:45 AM EDT [facility] eGFRcr 91.7 mL/min/1.7 3m*2 04/02/2025 2:45 AM EDT [facility] Comment:Reported eGFRcr in m L/min/1.73m2 is based the CKD-EPI 2020 equation that does not use a race coefficient. Blood Venous blood specimen / Unknown Venipuncture / Unknown 04/02/2025 2:07 AM EDT 04/02/2025 2:15 AM EDT us Roselyn Contreras TRANSIT CLERK LAB BLOOD ORDERABLES Final Res ult [facility] [address] [place] [address] * (ABNORMAL) CBC W/O Differential (04/02/2025 2:07 AM EDT) WBC Count 7.48 3.70 - 10.30 10*3/uL LAB HEMATOLOGY METHOD 04/02/2025 2:24 AM EDT [facility] RBC Count 3.10(L) 4.60 - 6.10 10*6/uL LAB HEMATOLOGY METHOD 04/02/2025 2:24 AM EDT [facility] HGB 9.1(L) 13.7 - 17.5 g/dL LAB HEMATOLOGY METHOD 04/02/2025 2:24 AM EDT [facility] HCT 27.4(L) 40.0 - 51.0 % LAB HEMATOLOGY METHOD 04/02/2025 2:24 AM EDT [facility] Platelet Count 181 155 - 369 10*3/uL LAB HEMATOLOGY METHOD 04/02/2025 2:24 AM EDT [facility] MCV 88 79 - 98 fL LAB HEMATOLOGY METHOD 04/02/2025 2:24 AM EDT [facility] MCH 29.4 26.0 - 32.0 pg LAB HEMATOLOGY METHOD 04/02/2025 2:24 AM EDT [facility] MCHC 33.2 30.7 - 35.5 g/dL LAB HEMATOLOGY METHOD 04/02/2025 2:24 AM EDT [facility] RDW 15.5(H) 11.5 - 14.5 % LAB HEMATOLOGY METHOD 04/02/2025 2:24 AM EDT [facility] MPV 9.8 8.8 - 12.5 fL LAB HEMATOLOGY METHOD 04/02/2025 2:24 AM EDT [facility] nRBC 0.3(H) <=0.0 per 100 WBCs LAB HEMATOLOGY METHOD 04/02/2025 2:24 AM EDT [facility] Blood Venous blood specimen / Unknown Venipuncture / Unknown 04/02/2025 2:07 AM EDT 04/02/2025 2:15 AM EDT us Roselyn Contreras TRANSIT CLERK LAB BLOOD ORDERABLES Final Res ult [facility] [address] [place] [address] * Magnesium, Plasma (04/02/2025 2:07 AM EDT) Magnesium, Plasma 2.1 1.9 - 2.4 mg/dL 04/02/2025 2:45 AM EDT [facility] Blood Venous blood specimen / Unknown Venipuncture / Unknown 04/02/2025 2:07 AM EDT 04/02/2025 2:15 AM EDT us Angelica Anderson APRN, DNP LAB BLOOD ORDERABLES Final Result [facility] [address] [place] [address] * Magnesium, Plasma (04/01/2025 3:32 PM EDT) Magnesium, Plasma 2.2 1.9 - 2.4 mg/dL 04/01/2025 4:28 PM EDT [facility] Blood Venous blood specimen / Unknown Venipuncture / Unknown 04/01/2025 3:32 PM EDT 04/01/2025 3:55 PM EDT us Roselyn Contreras APRN LAB BLOOD ORDERABLES Final Res ult [facility] [address] [place] [address] * (ABNORMAL) Renal Function Panel, Plasma (04/01/2025 3:32 PM EDT) Glucose, Plasma 173(H) 74 - 99 mg/dL 04/01/2025 4:28 PM EDT [facility] BUN, Plasma 12 8 - 23 mg/dL 04/01/2025 4:28 PM EDT [facility] Creatinine, Plasma 0.65(L) 0.70 - 1.20 mg/dL 04/01/2025 4:28 PM EDT [facility] BUN/Creatinine Ratio 18 04/01/2025 4:28 PM EDT [facility] Sodium, Plasma 136 136 - 145 mmol/L 04/01/2025 4:28 PM EDT [facility] Potassium, Plasma 5.4(H) 3.6 - 4.9 mmol/L 04/01/2025 4:28 PM EDT [facility] Comment:Hemolyzed, result ma y be falsely increased. Chloride, Plasma 105 97 - 107 mmol/L 04/01/2025 4:28 PM EDT [facility] CO2, Plasma 21(L) 22 - 29 mmol/L 04/01/2025 4:28 PM EDT [facility] Anion Gap 10 6 - 16 mmol/L 04/01/2025 4:28 PM EDT [facility] Total Calcium, Plasma 8.1(L) 8.9 - 10.2 mg/dL 04/01/2025 4:28 PM EDT [facility] Phosphorus, Plasma 2.1(L) 2.5 - 4.5 mg/dL 04/01/2025 4:28 PM EDT [facility] Albumin, Plasma 2.7(L) 3.5 - 5.2 g/dL 04/01/2025 4:28 PM EDT [facility] eGFRcr 92.9 mL/min/1.7 3m*2 04/01/2025 4:28 PM EDT [facility] Comment:Reported eGFRcr in m L/min/1.73m2 is based the CKD-EPI 2020 equation that does not use a race coefficient. Blood Venous blood specimen / Unknown Venipuncture / Unknown 04/01/2025 3:32 PM EDT 04/01/2025 3:55 PM EDT us Roselyn Contreras TRANSIT CLERK LAB BLOOD ORDERABLES Final Res ult [facility] [address] [place] [address] * (ABNORMAL) Phosphorus (04/01/2025 2:56 AM EDT) Phosphorus, Plasma 1.1(L) 2.5 - 4.5 mg/dL 04/01/2025 3:41 AM EDT [facility] Blood Venous blood specimen / Unknown Venipuncture / Unknown 04/01/2025 2:56 AM EDT 04/01/2025 3:08 AM EDT us Roselyn Contreras TRANSIT CLERK LAB BLOOD ORDERABLES Final Res ult [facility] [address] [place] [address] * (ABNORMAL) Comprehensive metabolic panel (04/01/2025 2:56 AM EDT) Glucose, Plasma 114(H) 74 - 99 mg/dL 04/01/2025 3:41 AM EDT [facility] BUN, Plasma 12 8 - 23 mg/dL 04/01/2025 3:41 AM EDT [facility] Creatinine, Plasma 0.69(L) 0.70 - 1.20 mg/dL 04/01/2025 3:41 AM EDT [facility] BUN/Creatinine Ratio 17 04/01/2025 3:41 AM EDT [facility] Sodium, Plasma 139 136 - 145 mmol/L 04/01/2025 3:41 AM EDT [facility] Potassium, Plasma 3.5(L) 3.6 - 4.9 mmol/L 04/01/2025 3:41 AM EDT [facility] Chloride, Plasma 107 97 - 107 mmol/L 04/01/2025 3:41 AM EDT [facility] CO2, Plasma 21(L) 22 - 29 mmol/L 04/01/2025 3:41 AM EDT [facility] Anion Gap 11 6 - 16 mmol/L 04/01/2025 3:41 AM EDT [facility] Total Calcium, Plasma 7.8(L) 8.9 - 10.2 mg/dL 04/01/2025 3:41 AM EDT [facility] Total Protein 5.2(L) 6.3 - 7.9 g/dL 04/01/2025 3:41 AM EDT [facility] Albumin, Plasma 2.6(L) 3.5 - 5.2 g/dL 04/01/2025 3:41 AM EDT [facility] AST, Plasma 23 10 - 50 U/L 04/01/2025 3:41 AM EDT [facility] ALT, Plasma 13 10 - 50 U/L 04/01/2025 3:41 AM EDT [facility] Alkaline Phosphatase, Plasma 41 40 - 115 U/L 04/01/2025 3:41 AM EDT [facility] Total Bilirubin, Plasma 0.4 0.2 - 1.1 mg/dL 04/01/2025 3:41 AM EDT [facility] eGFRcr 91.3 mL/min/1.7 3m*2 04/01/2025 3:41 AM EDT [facility] Comment:Reported eGFRcr in m L/min/1.73m2 is based the CKD-EPI 2020 equation that does not use a race coefficient. Blood Venous blood specimen / Unknown Venipuncture / Unknown 04/01/2025 2:56 AM EDT 04/01/2025 3:08 AM EDT us Roselyn Contreras TRANSIT CLERK LAB BLOOD ORDERABLES Final Res ult [facility] [address] [place] [address] * (ABNORMAL) CBC W/O Differential (04/01/2025 2:56 AM EDT) WBC Count 6.35 3.70 - 10.30 10*3/uL LAB HEMATOLOGY METHOD 04/01/2025 3:17 AM EDT [facility] RBC Count 3.12(L) 4.60 - 6.10 10*6/uL LAB HEMATOLOGY METHOD 04/01/2025 3:17 AM EDT [facility] HGB 9.3(L) 13.7 - 17.5 g/dL LAB HEMATOLOGY METHOD 04/01/2025 3:17 AM EDT [facility] HCT 27.2(L) 40.0 - 51.0 % LAB HEMATOLOGY METHOD 04/01/2025 3:17 AM EDT [facility] Platelet Count 150(L) 155 - 369 10*3/uL LAB HEMATOLOGY METHOD 04/01/2025 3:17 AM EDT [facility] MCV 87 79 - 98 fL LAB HEMATOLOGY METHOD 04/01/2025 3:17 AM EDT [facility] MCH 29.8 26.0 - 32.0 pg LAB HEMATOLOGY METHOD 04/01/2025 3:17 AM EDT [facility] MCHC 34.2 30.7 - 35.5 g/dL LAB HEMATOLOGY METHOD 04/01/2025 3:17 AM EDT [facility] RDW 15.1(H) 11.5 - 14.5 % LAB HEMATOLOGY METHOD 04/01/2025 3:17 AM EDT [facility] MPV 9.9 8.8 - 12.5 fL LAB HEMATOLOGY METHOD 04/01/2025 3:17 AM EDT [facility] nRBC 0.0 <=0.0 per 100 WBCs LAB HEMATOLOGY METHOD 04/01/2025 3:17 AM EDT [facility] Blood Venous blood specimen / Unknown Venipuncture / Unknown 04/01/2025 2:56 AM EDT 04/01/2025 3:08 AM EDT us Roselyn Contreras APRN LAB BLOOD ORDERABLES Final Res ult [facility] [address] [place] [address] * Magnesium, Plasma (04/01/2025 2:56 AM EDT) Magnesium, Plasma 2.0 1.9 - 2.4 mg/dL 04/01/2025 3:41 AM EDT [facility] Blood Venous blood specimen / Unknown Venipuncture / Unknown 04/01/2025 2:56 AM EDT 04/01/2025 3:08 AM EDT us Angelica Anderson APRN, DNP LAB BLOOD ORDERABLES Final Result [facility] [address] [place] [address] * PERIPHERAL IV (SM[employer] LINK) (03/31/2025 8:41 PM EDT) Narrative Fareed Diaz RN - 03/31/2025 8:41 PM EDFareed Blackman RN 03/31/2025 8:41 PM Insert peripheral IV [...] POCT glucose meter (03/31/2025 6:11 PM EDT) [facility] POCT Glucose 110(H) 74 - 99 mg/dL [...] for testing. Comment 03/31/2025 6:13 PM EDT [facility] [employer] Examiner ID Tsering Marie 03/31/2025 6:13 PM EDT [facility]ALTH[facility]ARE LAB Device ID [id number] 03/31/2025 6:13 PM EDT [facility] Specimen Type POC Capillary 03/31/2025 6:13 PM EDT [facility] Blood Capillary blood specimen / Unknown 03/31/2025 6:11 PM EDT 03/31/2025 6:13 PM EDT Rolando Lynch MD LAB POINT OF CARE TE ST DOCKED DEVICE UNSOLICITED RESULTS Final Result [facility] [address] [place] [address] * RI CRITICAL CARE, E/M 30-74 MINUTES (03/31/2025 10:54 [...] laboratory studies and review of old charts us Roselyn Contreras APRN IN CLINIC/BEDSIDE ORDERABLES F inal Result * Anti Xa Level Unfractionated Heparin - Heparin Drip Titration (03/31/2025 12:04 AM EDT) Anti Xa Level Unfractionated Heparin 0.52 <1.00 IU/mL LAB COAGULATION METHOD 03/31/2025 1:05 AM EDT [facility] Blood Venous blood specimen / Unknown Venipuncture / Unknown 03/31/2025 12:04 AM EDT 03/31/2025 12:12 AM EDT Narrative [facility] - 03/31/2025 1:05 AM EDT Therapeutic Range: UFH Full Dose and ACS/MS protocols*: 0.30 - 0.70 IU/mL UFH Low Dose protocol*: 0.25 - 0.50 IU/mL UFH prophylaxis: Not established us Rolando Lynch MD LAB BLOOD ORDERABLES Final Re sult [facility] [address] [place] [address] * Magnesium, Plasma (03/31/2025 12:04 AM EDT) Magnesium, Plasma 2.1 1.9 - 2.4 mg/dL 03/31/2025 12:33 AM EDT [facility] Blood Venous blood specimen / Unknown Venipuncture / Unknown 03/31/2025 12:04 AM EDT 03/31/2025 12:11 AM EDT Angelica Anderson APRN, SHREYAS LAB BLOOD ORDERABLES Final Result [facility] [address] [place] [address] * (ABNORMAL) CBC W/O differential - HIT surveillance (03/31/2025 12:04 AM EDT) WBC Count 7.17 3.70 - 10.30 10*3/uL LAB HEMATOLOGY METHOD 03/31/2025 12:22 AM EDT [facility] RBC Count 3.33(L) 4.60 - 6.10 10*6/uL LAB HEMATOLOGY METHOD 03/31/2025 12:22 AM EDT [facility] HGB 9.9(L) 13.7 - 17.5 g/dL LAB HEMATOLOGY METHOD 03/31/2025 12:22 AM EDT [facility] HCT 29.1(L) 40.0 - 51.0 % LAB HEMATOLOGY METHOD 03/31/2025 12:22 AM EDT [facility] Platelet Count 164 155 - 369 10*3/uL LAB HEMATOLOGY METHOD 03/31/2025 12:22 AM EDT [facility] MCV 87 79 - 98 fL LAB HEMATOLOGY METHOD 03/31/2025 12:22 AM EDT [facility] MCH 29.7 26.0 - 32.0 pg LAB HEMATOLOGY METHOD 03/31/2025 12:22 AM EDT [facility] MCHC 34.0 30.7 - 35.5 g/dL LAB HEMATOLOGY METHOD 03/31/2025 12:22 AM EDT [facility] RDW 15.0(H) 11.5 - 14.5 % LAB HEMATOLOGY METHOD 03/31/2025 12:22 AM EDT [facility] MPV 10.3 8.8 - 12.5 fL LAB HEMATOLOGY METHOD 03/31/2025 12:22 AM EDT [facility] nRBC 0.0 <=0.0 per 100 WBCs LAB HEMATOLOGY METHOD 03/31/2025 12:22 AM EDT [facility] Blood Venous blood specimen / Unknown Venipuncture / Unknown 03/31/2025 12:04 AM EDT 03/31/2025 12:12 AM EDT us Rolando Lynch MD LAB BLOOD ORDERABLES Final Re sult Performing Organization Address [facility]/ZIP Co de Phone Number [facility] [address] [place] [address] * (ABNORMAL) Protime-INR (03/31/2025 12:04 AM EDT) Prothrombin Time 18.6(H) 12.0 - 14.3 sec LAB COAGULATION METHOD 03/31/2025 1:05 AM EDT [facility] INR 1.5(H) 0.9 - 1.1 LAB COAGULATION METHOD 03/31/2025 1:05 AM EDT [facility] Blood Venous blood specimen / Unknown Venipuncture / Unknown 03/31/2025 12:04 AM EDT 03/31/2025 12:12 AM EDT Narrative [facility] - 03/31/2025 1:05 AM EDT OPTIMAL INR RANGES FOR PATIENT ON ORAL ANTICOAGULANT THERAPY Prevention of venous thromboembolism INR 2.0 to 3.0 In patients with heart disease: Atrial fibrillation INR 2.0 to 3.0 Valvular heart disease INR 2.0 to 3.0 Tissue heart valves INR 2.0 to 3.0 Mechanical prosthetic valves INR 2.5 to 3.5 Prevention of recurrent MS INR 2.5 to 3.5 us Angeliac Anderson APRN, DNP LAB BLOOD ORDERABLES Final Result Performing Organization Address City/[facility]/ZIP Co de Phone Number [facility] [address] [place] [address] * (ABNORMAL) Renal Function Panel, Plasma (03/30/2025 7:00 PM EDT) Glucose, Plasma 156(H) 74 - 99 mg/dL 03/30/2025 7:45 PM EDT [facility] BUN, Plasma 16 8 - 23 mg/dL 03/30/2025 7:45 PM EDT [facility] Creatinine, Plasma 0.83 0.70 - 1.20 mg/dL 03/30/2025 7:45 PM EDT [facility] BUN/Creatinine Ratio 19 03/30/2025 7:45 PM EDT [facility] Sodium, Plasma 141 136 - 145 mmol/L 03/30/2025 7:45 PM EDT [facility] Potassium, Plasma 3.9 3.6 - 4.9 mmol/L 03/30/2025 7:45 PM EDT [facility] Chloride, Plasma 106 97 - 107 mmol/L 03/30/2025 7:45 PM EDT [facility] CO2, Plasma 22 22 - 29 mmol/L 03/30/2025 7:45 PM EDT [facility] Anion Gap 13 6 - 16 mmol/L 03/30/2025 7:45 PM EDT [facility] Total Calcium, Plasma 8.1(L) 8.9 - 10.2 mg/dL 03/30/2025 7:45 PM EDT [facility] Phosphorus, Plasma 3.7 2.5 - 4.5 mg/dL 03/30/2025 7:45 PM EDT [facility] Albumin, Plasma 2.9(L) 3.5 - 5.2 g/dL 03/30/2025 7:45 PM EDT [facility] eGFRcr 86.3 mL/min/1.7 3m*2 03/30/2025 7:45 PM EDT [facility] Comment:Reported eGFRcr in m L/min/1.73m2 is based the CKD-EPI 2020 equation that does not use a race coefficient. Blood Venous blood specimen / Unknown Venipuncture / Unknown 03/30/2025 7:00 PM EDT 03/30/2025 7:14 PM EDT us Angelica Anderson APRN, DNP LAB BLOOD ORDERABLES Final Result [facility] [address] [place] [address] * RI CRITICAL CARE, E/M 30-74 MINUTES (03/30/2025 6:27 [...] LAB COAGULATION METHOD 03/30/2025 6:47 PM EDT [facility] Blood Venous blood specimen / Unknown Venipuncture / Unknown 03/30/2025 5:57 PM EDT 03/30/2025 6:10 PM EDT Narrative [facility] - 03/30/2025 6:47 PM EDT Therapeutic Range: UFH Full Dose and ACS/MS protocols*: 0.30 - 0.70 IU/mL UFH Low Dose protocol*: 0.25 - 0.50 IU/mL UFH prophylaxis: Not established us Rolando Lynch MD LAB BLOOD ORDERABLES Final Re sult [facility] [address] [place] [address] * (ABNORMAL) Protime-INR (03/30/2025 5:57 PM EDT) Prothrombin Time 18.0(H) 12.0 - 14.3 sec LAB COAGULATION METHOD 03/30/2025 6:46 PM EDT [facility] INR 1.5(H) 0.9 - 1.1 LAB COAGULATION METHOD 03/30/2025 6:46 PM EDT [facility] Blood Venous blood specimen / Unknown Venipuncture / Unknown 03/30/2025 5:57 PM EDT 03/30/2025 6:10 PM EDT Narrative [facility] - 03/30/2025 6:46 PM EDT OPTIMAL INR RANGES FOR PATIENT ON ORAL ANTICOAGULANT THERAPY Prevention of venous thromboembolism INR 2.0 to 3.0 In patients with heart disease: Atrial fibrillation INR 2.0 to 3.0 Valvular heart disease INR 2.0 to 3.0 Tissue heart valves INR 2.0 to 3.0 Mechanical prosthetic valves INR 2.5 to 3.5 Prevention of recurrent MS INR 2.5 to 3.5 us Fabián Salgado MD LAB BLOOD ORDERABLES Final Res ult Performing Organization Address [facility] Co de Phone Number [facility] [address] [place] [address] * Anti Xa Level Unfractionated Heparin (03/30/2025 12:01 PM EDT) Anti Xa Level Unfractionated Heparin 0.47 <1.00 IU/mL LAB COAGULATION METHOD 03/30/2025 12:35 PM EDT [facility] Blood Venous blood specimen / Unknown Venipuncture / Unknown 03/30/2025 12:01 PM EDT 03/30/2025 12:09 PM EDT Narrative [facility] - 03/30/2025 12:35 PM EDT Therapeutic Range: UFH Full Dose and ACS/MS protocols*: 0.30 - 0.70 IU/mL UFH Low Dose protocol*: 0.25 - 0.50 IU/mL UFH prophylaxis: Not established us Fabián Salgado MD LAB BLOOD ORDERABLES Final Res ult Performing Organization Address [facility] Hospital/[facility] Co de Phone Number [facility] [address] [place] [address] * (ABNORMAL) APTT (03/30/2025 12:01 PM EDT) aPTT 125(HH) 25 - 35 sec LAB COAGULATION METHOD 03/30/2025 12:35 PM EDT [facility] Blood Venous blood specimen / Unknown Venipuncture / Unknown 03/30/2025 12:01 PM EDT 03/30/2025 12:09 PM EDT Fabián Salgado MD LAB BLOOD ORDERABLES Final Res ult Performing Organization Address [facility] Co de Phone Number [facility] [address] [place] [address] * (ABNORMAL) Protime-INR (03/30/2025 12:01 PM EDT) Prothrombin Time 17.0(H) 12.0 - 14.3 sec LAB COAGULATION METHOD 03/30/2025 12:35 PM EDT [facility] INR 1.4(H) 0.9 - 1.1 LAB COAGULATION METHOD 03/30/2025 12:35 PM EDT [facility] Blood Venous blood specimen / Unknown Venipuncture / Unknown 03/30/2025 12:01 PM EDT 03/30/2025 12:09 PM EDT Narrative [facility] - 03/30/2025 12:35 PM EDT OPTIMAL INR RANGES FOR PATIENT ON ORAL ANTICOAGULANT THERAPY Prevention of venous thromboembolism INR 2.0 to 3.0 In patients with heart disease: Atrial fibrillation INR 2.0 to 3.0 Valvular heart disease INR 2.0 to 3.0 Tissue heart valves INR 2.0 to 3.0 Mechanical prosthetic valves INR 2.5 to 3.5 Prevention of recurrent MS INR 2.5 to 3.5 Fabián Salgado MD LAB BLOOD ORDERABLES Final Res ult Performing Organization Address [facility] Co de Phone Number [facility] [address] [place] [address] * (ABNORMAL) CBC W/O Differential (03/30/2025 10:05 AM EDT) WBC Count 5.69 3.70 - 10.30 10*3/uL LAB HEMATOLOGY METHOD 03/30/2025 10:05 AM EDT [facility] RBC Count 3.58(L) 4.60 - 6.10 10*6/uL LAB HEMATOLOGY METHOD 03/30/2025 10:05 AM EDT [facility] HGB 10.8(L) 13.7 - 17.5 g/dL LAB HEMATOLOGY METHOD 03/30/2025 10:05 AM EDT [facility] HCT 31.4(L) 40.0 - 51.0 % LAB HEMATOLOGY METHOD 03/30/2025 10:05 AM EDT [facility] Platelet Count 175 155 - 369 10*3/uL LAB HEMATOLOGY METHOD 03/30/2025 10:05 AM EDT [facility] MCV 88 79 - 98 fL LAB HEMATOLOGY METHOD 03/30/2025 10:05 AM EDT [facility] MCH 30.2 26.0 - 32.0 pg LAB HEMATOLOGY METHOD 03/30/2025 10:05 AM EDT [facility] MCHC 34.4 30.7 - 35.5 g/dL LAB HEMATOLOGY METHOD 03/30/2025 10:05 AM EDT [facility] RDW 14.7(H) 11.5 - 14.5 % LAB HEMATOLOGY METHOD 03/30/2025 10:05 AM EDT [facility] MPV 10.2 8.8 - 12.5 fL LAB HEMATOLOGY METHOD 03/30/2025 10:05 AM EDT [facility] nRBC 0.0 <=0.0 per 100 WBCs LAB HEMATOLOGY METHOD 03/30/2025 10:05 AM EDT [facility] Blood Venous blood specimen / Unknown 03/30/2025 9:58 AM EDT us Rolando Lynch MD LAB BLOOD ORDERABLES Final Re sult [facility] [address] [place] [address] * (ABNORMAL) Hemoglobin and Hematocrit, Blood (03/30/2025 9:36 AM EDT) HGB 10.5(L) 13.7 - 17.5 g/dL LAB HEMATOLOGY METHOD 03/30/2025 10:08 AM EDT [facility] HCT 30.9(L) 40.0 - 51.0 % LAB HEMATOLOGY METHOD 03/30/2025 10:08 AM EDT [facility] Blood Venous blood specimen / Unknown Venipuncture / Unknown 03/30/2025 9:36 AM EDT 03/30/2025 9:59 AM EDT us Angelica Anderson APRN, SHREYAS LAB BLOOD ORDERABLES Final Result Performing Organization Address [facility]/ZIP Co de Phone Number [facility] [address] [place] [address] * (ABNORMAL) Magnesium (03/30/2025 9:36 AM EDT) Magnesium, Plasma 1.8(L) 1.9 - 2.4 mg/dL 03/30/2025 10:21 AM EDT [facility] Blood Arterial blood specimen / Unknown Arterial Puncture / Unknown 03/30/2025 9:36 AM EDT 03/30/2025 9:50 AM EDT Angelica Anderson APRN, SHREYAS LAB BLOOD ORDERABLES Final Result Performing Organization Address [facility]/ZIP Co de Phone Number [facility] [address] [place] [address] * (ABNORMAL) Renal function panel (03/30/2025 9:36 AM EDT) Glucose, Plasma 162(H) 74 - 99 mg/dL 03/30/2025 10:21 AM EDT [facility] BUN, Plasma 17 8 - 23 mg/dL 03/30/2025 10:21 AM EDT [facility] Creatinine, Plasma 0.90 0.70 - 1.20 mg/dL 03/30/2025 10:21 AM EDT [facility] BUN/Creatinine Ratio 19 03/30/2025 10:21 AM EDT [facility] Sodium, Plasma 137 136 - 145 mmol/L 03/30/2025 10:21 AM EDT [facility] Potassium, Plasma 4.3 3.6 - 4.9 mmol/L 03/30/2025 10:21 AM EDT [facility] Chloride, Plasma 104 97 - 107 mmol/L 03/30/2025 10:21 AM EDT [facility] CO2, Plasma 22 22 - 29 mmol/L 03/30/2025 10:21 AM EDT [facility] Anion Gap 11 6 - 16 mmol/L 03/30/2025 10:21 AM EDT [facility] Total Calcium, Plasma 7.8(L) 8.9 - 10.2 mg/dL 03/30/2025 10:21 AM EDT [facility] Phosphorus, Plasma 1.4(L) 2.5 - 4.5 mg/dL 03/30/2025 10:21 AM EDT [facility] Albumin, Plasma 2.9(L) 3.5 - 5.2 g/dL 03/30/2025 10:21 AM EDT [facility] eGFRcr 84.2 mL/min/1.7 3m*2 03/30/2025 10:21 AM EDT [facility] Comment:Reported eGFRcr in m L/min/1.73m2 is based the CKD-EPI 2020 equation that does not use a race coefficient. Blood Arterial blood specimen / Unknown Arterial Puncture / Unknown 03/30/2025 9:36 AM EDT 03/30/2025 9:50 AM EDT us Angelica Anderson APRN, DNP LAB BLOOD ORDERABLES Final Result [facility] [address] [place] [address] * Platelet count (03/30/2025 9:36 AM EDT) Platelet Count 177 155 - 369 10*3/uL LAB HEMATOLOGY METHOD 03/30/2025 10:08 AM EDT [facility] Blood Venous blood specimen / Unknown Venipuncture / Unknown 03/30/2025 9:36 AM EDT 03/30/2025 9:59 AM EDT us Fabián Salgado MD LAB BLOOD ORDERABLES Final Res ult [facility] [address] [place] [address] * (ABNORMAL) Hematocrit (03/30/2025 9:36 AM EDT) HCT 30.9(L) 40.0 - 51.0 % LAB HEMATOLOGY METHOD 03/30/2025 10:08 AM EDT [facility] Blood Venous blood specimen / Unknown Venipuncture / Unknown 03/30/2025 9:36 AM EDT 03/30/2025 9:59 AM EDT us Fabián Salgado MD LAB BLOOD ORDERABLES Final Res ult [facility] [address] [place] [address] * (ABNORMAL) Blood gas panel, arterial (03/30/2025 9:32 AM EDT) pH, Arterial 7.43(H) 7.31 - 7.42 LAB HEMATOLOGY METHOD 03/30/2025 9:41 AM EDT [facility] pCO2, Arterial 39 32 - 45 mmHg LAB HEMATOLOGY METHOD 03/30/2025 9:41 AM EDT [facility] pO2, Arterial 92 >60 mmHg LAB HEMATOLOGY METHOD 03/30/2025 9:41 AM EDT [facility] SO2, Measured, Arterial 99(H) 94 - 98 % LAB HEMATOLOGY METHOD 03/30/2025 9:41 AM EDT [facility] Base Excess, Arterial 1.2 -2.0 - 3.0 mmol/L LAB HEMATOLOGY METHOD 03/30/2025 9:41 AM EDT [facility] Bicarbonate, Calculated, Arterial 26 22 - 26 mmol/L LAB HEMATOLOGY METHOD 03/30/2025 9:41 AM EDT [facility] Hematocrit, Whole Blood 33.3(L) 40.0 - 51.0 % LAB HEMATOLOGY METHOD 03/30/2025 9:41 AM EDT [facility] Sodium, Whole Blood 136 136 - 145 mmol/L LAB HEMATOLOGY METHOD 03/30/2025 9:41 AM EDT [facility] Potassium, Whole Blood 4.1 3.6 - 4.9 mmol/L LAB HEMATOLOGY METHOD 03/30/2025 9:41 AM EDT [facility] Chloride, Whole Blood 103 97 - 107 mmol/L LAB HEMATOLOGY METHOD 03/30/2025 9:41 AM EDT [facility] Glucose, Whole Blood 158(H) 74 - 99 mg/dL LAB HEMATOLOGY METHOD 03/30/2025 9:41 AM EDT [facility] Ionized Calcium, Whole Blood 4.4(L) 4.6 - 5.1 mg/dL LAB HEMATOLOGY METHOD 03/30/2025 9:41 AM EDT [facility] Lactate, Arterial, Whole Blood 1.7(H) 0.5 - 1.6 mmol/L LAB HEMATOLOGY METHOD 03/30/2025 9:41 AM EDT [facility] Blood Arterial blood specimen / Unknown Arterial Puncture / Unknown 03/30/2025 9:32 AM EDT 03/30/2025 9:38 AM EDT Rolando Lynch MD LAB BLOOD ORDERABLES Final Re sult Performing Organization Address [facility]/[place] [address] * Maddie auris Surveillance by PCR (03/30/2025 8:58 AM EDT) Pathologist [facility] Maddie auris PCR Result Not Detected Not Detected 03/31/2025 7:55 AM EDT [facility] Swab (Axilla and Groin) Non-blood Collection / Unknown 03/30/2025 8:58 AM EDT 03/30/2025 9:17 AM EDT Narrative [facility] - 03/31/2025 7:55 AM EDT This PCR assay was developed and its performance characteristics determined by [facility] as appropriate for clinical purposes. This assay has not been cleared or approved by the FDA, but is performed in a CLIA regulated laboratory that is qualified to perform high-complexity testing. us Rolando Lynch MD LAB MICROBIOLOGY - GENERAL OR DERABLES Final Result Performing Organization Address City/[facility]/ZIP Co de Phone Number [facility] [address] [place] [address] * (ABNORMAL) Anti Xa Level Unfractionated Heparin (03/30/2025 5:21 AM EDT) Anti Xa Level Unfractionated Heparin >1.10(HH ) <1.00 IU/mL LAB COAGULATION METHOD 03/30/2025 6:18 AM EDT [facility] Blood Venous blood specimen / Unknown Venipuncture / Unknown 03/30/2025 5:21 AM EDT 03/30/2025 5:32 AM EDT Narrative [facility] - 03/30/2025 6:18 AM EDT Therapeutic Range: UFH Full Dose and ACS/MS protocols*: 0.30 - 0.70 IU/mL UFH Low Dose protocol*: 0.25 - 0.50 IU/mL UFH prophylaxis: Not established us Fabián Salgado MD LAB BLOOD ORDERABLES Final Res ult Performing Organization Address City/[facility]/ZIP Co de Phone Number [facility] [address] [place] [address] * (ABNORMAL) APTT (03/30/2025 5:21 AM EDT) aPTT >200(HH) 25 - 35 sec LAB COAGULATION METHOD 03/30/2025 6:18 AM EDT [facility] Blood Venous blood specimen / Unknown Venipuncture / Unknown 03/30/2025 5:21 AM EDT 03/30/2025 5:32 AM EDT us Fabián Salgado MD LAB BLOOD ORDERABLES Final Res ult [facility] [address] [place] [address] * (ABNORMAL) Protime-INR (03/30/2025 5:21 AM EDT) Prothrombin Time 16.7(H) 12.0 - 14.3 sec LAB COAGULATION METHOD 03/30/2025 6:18 AM EDT [facility] INR 1.3(H) 0.9 - 1.1 LAB COAGULATION METHOD 03/30/2025 6:18 AM EDT [facility] Blood Venous blood specimen / Unknown Venipuncture / Unknown 03/30/2025 5:21 AM EDT 03/30/2025 5:32 AM EDT Narrative [facility] - 03/30/2025 6:18 AM EDT OPTIMAL INR RANGES FOR PATIENT ON ORAL ANTICOAGULANT THERAPY Prevention of venous thromboembolism INR 2.0 to 3.0 In patients with heart disease: Atrial fibrillation INR 2.0 to 3.0 Valvular heart disease INR 2.0 to 3.0 Tissue heart valves INR 2.0 to 3.0 Mechanical prosthetic valves INR 2.5 to 3.5 Prevention of recurrent MS INR 2.5 to 3.5 us Fabián Salgado MD LAB BLOOD ORDERABLES Final Res ult Performing Organization Address City/[facility]/[place] [address] * Platelet count (03/30/2025 5:21 AM EDT) Pathologist [facility] Platelet Count 197 155 - 369 10*3/uL LAB HEMATOLOGY METHOD 03/30/2025 5:41 AM EDT [facility] Blood Venous blood specimen / Unknown Venipuncture / Unknown 03/30/2025 5:21 AM EDT 03/30/2025 5:32 AM EDT us Fabián Salgado MD LAB BLOOD ORDERABLES Final Res ult Performing Organization Address [facility]/[place] [address] * (ABNORMAL) Hematocrit (03/30/2025 5:21 AM EDT) Pathologist [facility] HCT 34.2(L) 40.0 - 51.0 % LAB HEMATOLOGY METHOD 03/30/2025 5:41 AM EDT [facility] Blood Venous blood specimen / Unknown Venipuncture / Unknown 03/30/2025 5:21 AM EDT 03/30/2025 5:32 AM EDT us Fabián Salgado MD LAB BLOOD ORDERABLES Final Res ult Performing Organization Address City/[facility]/ZIP Co de Phone Number [facility] [address] [place] [address] * (ABNORMAL) Protime-INR (03/30/2025 12:28 AM EDT) Prothrombin Time 15.2(H) 12.0 - 14.3 sec LAB COAGULATION METHOD 03/30/2025 1:02 AM EDT [facility] INR 1.2(H) 0.9 - 1.1 LAB COAGULATION METHOD 03/30/2025 1:02 AM EDT [facility] Blood Venous blood specimen / Unknown Venipuncture / Unknown 03/30/2025 12:28 AM EDT 03/30/2025 12:37 AM EDT Narrative [facility] - 03/30/2025 1:02 AM EDT OPTIMAL INR RANGES FOR PATIENT ON ORAL ANTICOAGULANT THERAPY Prevention of venous thromboembolism INR 2.0 to 3.0 In patients with heart disease: Atrial fibrillation INR 2.0 to 3.0 Valvular heart disease INR 2.0 to 3.0 Tissue heart valves INR 2.0 to 3.0 Mechanical prosthetic valves INR 2.5 to 3.5 Prevention of recurrent MS INR 2.5 to 3.5 us Rolando Lynch MD LAB BLOOD ORDERABLES Final Re sult [facility] [address] [place] [address] * (ABNORMAL) CBC W/O Differential - Baseline (03/30/2025 12:28 AM EDT) WBC Count 3.82 3.70 - 10.30 10*3/uL LAB HEMATOLOGY METHOD 03/30/2025 12:51 AM EDT [facility] RBC Count 3.82(L) 4.60 - 6.10 10*6/uL LAB HEMATOLOGY METHOD 03/30/2025 12:51 AM EDT [facility] HGB 11.2(L) 13.7 - 17.5 g/dL LAB HEMATOLOGY METHOD 03/30/2025 12:51 AM EDT [facility] HCT 33.7(L) 40.0 - 51.0 % LAB HEMATOLOGY METHOD 03/30/2025 12:51 AM EDT [facility] Platelet Count 169 155 - 369 10*3/uL LAB HEMATOLOGY METHOD 03/30/2025 12:51 AM EDT [facility] MCV 88 79 - 98 fL LAB HEMATOLOGY METHOD 03/30/2025 12:51 AM EDT [facility] MCH 29.3 26.0 - 32.0 pg LAB HEMATOLOGY METHOD 03/30/2025 12:51 AM EDT [facility] MCHC 33.2 30.7 - 35.5 g/dL LAB HEMATOLOGY METHOD 03/30/2025 12:51 AM EDT [facility] RDW 14.9(H) 11.5 - 14.5 % LAB HEMATOLOGY METHOD 03/30/2025 12:51 AM EDT [facility] MPV 10.4 8.8 - 12.5 fL LAB HEMATOLOGY METHOD 03/30/2025 12:51 AM EDT [facility] nRBC 0.0 <=0.0 per 100 WBCs LAB HEMATOLOGY METHOD 03/30/2025 12:51 AM EDT [facility] Blood Venous blood specimen / Unknown Venipuncture / Unknown 03/30/2025 12:28 AM EDT 03/30/2025 12:37 AM EDT us Rolando Lynch MD LAB BLOOD ORDERABLES Final Re sult [facility] [address] [place] [address] * Anti Xa Level Unfractionated Heparin - Baseline (03/30/2025 12:28 AM EDT) Anti Xa Level Unfractionated Heparin <0.11 <1.00 IU/mL LAB COAGULATION METHOD 03/30/2025 1:02 AM EDT [facility] Blood Venous blood specimen / Unknown Venipuncture / Unknown 03/30/2025 12:28 AM EDT 03/30/2025 12:37 AM EDT Narrative [facility] - 03/30/2025 1:02 AM EDT Therapeutic Range: UFH Full Dose and ACS/MS protocols*: 0.30 - 0.70 IU/mL UFH Low Dose protocol*: 0.25 - 0.50 IU/mL UFH prophylaxis: Not established Rolando Lynch MD LAB BLOOD ORDERAB[place] [address] * Anti Xa Level Unfractionated Heparin (03/30/2025 12:01 AM EDT) Anti Xa Level Unfractionated Heparin 0.14 <1.00 IU/mL LAB COAGULATION METHOD 03/30/2025 12:51 AM EDT [facility] Blood Venous blood specimen / Unknown Venipuncture / Unknown 03/30/2025 12:01 AM EDT 03/30/2025 12:23 AM EDT Narrative [facility] - 03/30/2025 12:51 AM EDT Therapeutic Range: UFH Full Dose and ACS/MS protocols*: 0.30 - 0.70 IU/mL UFH Low Dose protocol*: 0.25 - 0.50 IU/mL UFH prophylaxis: Not established Fabián Salgado MD LAB BLOOD ORDERABLES Final Res ult Performing Organization Address City/[facility]/[place] [address] * (ABNORMAL) APTT (03/30/2025 12:01 AM EDT) aPTT 45(H) 25 - 35 sec LAB COAGULATION METHOD 03/30/2025 12:51 AM EDT [facility] Blood Venous blood specimen / Unknown Venipuncture / Unknown 03/30/2025 12:01 AM EDT 03/30/2025 12:23 AM EDT Fabián Salgado MD LAB BLOOD [place] [address] * Platelet count (03/30/2025 12:01 AM EDT) Platelet Count 174 155 - 369 10*3/uL LAB HEMATOLOGY METHOD 03/30/2025 12:31 AM EDT [facility] Blood Venous blood specimen / Unknown Venipuncture / Unknown 03/30/2025 12:01 AM EDT 03/30/2025 12:23 AM EDT us Fabián Salgado MD LAB BLOOD ORDERABLES Final Res ult Performing Organization Address City/[facility]/ZIP Co de Phone Number [facility] [address] [place] [address] * (ABNORMAL) Hematocrit (03/30/2025 12:01 AM EDT) HCT 34.5(L) 40.0 - 51.0 % LAB HEMATOLOGY METHOD 03/30/2025 12:31 AM EDT [facility] Blood Venous blood specimen / Unknown Venipuncture / Unknown 03/30/2025 12:01 AM EDT 03/30/2025 12:23 AM EDT us Fabián Salgado MD LAB BLOOD ORDERABLES Final Res ult Performing Organization Address [facility] de Phone Number [facility] [address] [place] [address] * Anti Xa Level Unfractionated Heparin (03/29/2025 7:24 PM EDT) Anti Xa Level Unfractionated Heparin 0.28 <1.00 IU/mL LAB COAGULATION METHOD 03/29/2025 7:59 PM EDT [facility] Blood Venous blood specimen / Unknown Venipuncture / Unknown 03/29/2025 7:24 PM EDT 03/29/2025 7:32 PM EDT Narrative [facility] - 03/29/2025 7:59 PM EDT Therapeutic Range: UFH Full Dose and ACS/MS protocols*: 0.30 - 0.70 IU/mL UFH Low Dose protocol*: 0.25 - 0.50 IU/mL UFH prophylaxis: Not established us Fabián Salgado MD LAB BLOOD ORDERABLES Final Res ult [facility] [address] [place] [address] * (ABNORMAL) APTT (03/29/2025 7:24 PM EDT) aPTT 77(H) 25 - 35 sec LAB COAGULATION METHOD 03/29/2025 7:59 PM EDT [facility] Blood Venous blood specimen / Unknown Venipuncture / Unknown 03/29/2025 7:24 PM EDT 03/29/2025 7:32 PM EDT Fabián Salgado MD LAB BLOOD ORDERABLES Final Res ult Performing Organization Address [facility] Co de Phone Number [facility] [address] [place] [address] * (ABNORMAL) Protime-INR (03/29/2025 7:24 PM EDT) Prothrombin Time 16.4(H) 12.0 - 14.3 sec LAB COAGULATION METHOD 03/29/2025 7:55 PM EDT [facility] INR 1.3(H) 0.9 - 1.1 LAB COAGULATION METHOD 03/29/2025 7:55 PM EDT [facility] Blood Venous blood specimen / Unknown Venipuncture / Unknown 03/29/2025 7:24 PM EDT 03/29/2025 7:31 PM EDT Narrative [facility] - 03/29/2025 7:55 PM EDT OPTIMAL INR RANGES FOR PATIENT ON ORAL ANTICOAGULANT THERAPY Prevention of venous thromboembolism INR 2.0 to 3.0 In patients with heart disease: Atrial fibrillation INR 2.0 to 3.0 Valvular heart disease INR 2.0 to 3.0 Tissue heart valves INR 2.0 to 3.0 Mechanical prosthetic valves INR 2.5 to 3.5 Prevention of recurrent MS INR 2.5 to 3.5 Fabián Salgado MD LAB BLOOD ORDERABLES Final Res ult Performing Organization Address City/[facility]/ZIP Co de Phone Number [facility] [address] [place] [address] * (ABNORMAL) CBC W/O Differential (03/29/2025 7:24 PM EDT) WBC Count 3.81 3.70 - 10.30 10*3/uL LAB HEMATOLOGY METHOD 03/29/2025 7:39 PM EDT [facility] RBC Count 3.43(L) 4.60 - 6.10 10*6/uL LAB HEMATOLOGY METHOD 03/29/2025 7:39 PM EDT [facility] HGB 10.1(L) 13.7 - 17.5 g/dL LAB HEMATOLOGY METHOD 03/29/2025 7:39 PM EDT [facility] HCT 30.3(L) 40.0 - 51.0 % LAB HEMATOLOGY METHOD 03/29/2025 7:39 PM EDT [facility] Platelet Count 154(L) 155 - 369 10*3/uL LAB HEMATOLOGY METHOD 03/29/2025 7:39 PM EDT [facility] MCV 88 79 - 98 fL LAB HEMATOLOGY METHOD 03/29/2025 7:39 PM EDT [facility] MCH 29.4 26.0 - 32.0 pg LAB HEMATOLOGY METHOD 03/29/2025 7:39 PM EDT [facility] MCHC 33.3 30.7 - 35.5 g/dL LAB HEMATOLOGY METHOD 03/29/2025 7:39 PM EDT [facility] RDW 14.8(H) 11.5 - 14.5 % LAB HEMATOLOGY METHOD 03/29/2025 7:39 PM EDT [facility] MPV 10.0 8.8 - 12.5 fL LAB HEMATOLOGY METHOD 03/29/2025 7:39 PM EDT [facility] nRBC 0.0 <=0.0 per 100 WBCs LAB HEMATOLOGY METHOD 03/29/2025 7:39 PM EDT [facility] Blood Venous blood specimen / Unknown Venipuncture / Unknown 03/29/2025 7:24 PM EDT 03/29/2025 7:32 PM EDT us Fabián Salgado MD LAB BLOOD ORDERABLES Final Res ult [facility] [address] [place] [address] * (ABNORMAL) Blood gas panel, arterial (03/29/2025 7:20 PM EDT) pH, Arterial 7.32 7.31 - 7.42 LAB HEMATOLOGY METHOD 03/29/2025 7:35 PM EDT [facility] pCO2, Arterial 47(H) 32 - 45 mmHg LAB HEMATOLOGY METHOD 03/29/2025 7:35 PM EDT [facility] pO2, Arterial 131 >60 mmHg LAB HEMATOLOGY METHOD 03/29/2025 7:35 PM EDT [facility] SO2, Measured, Arterial 100(H) 94 - 98 % LAB HEMATOLOGY METHOD 03/29/2025 7:35 PM EDT [facility] Base Excess, Arterial -1.6 -2.0 - 3.0 mmol/L LAB HEMATOLOGY METHOD 03/29/2025 7:35 PM EDT [facility] Bicarbonate, Calculated, Arterial 25 22 - 26 mmol/L LAB HEMATOLOGY METHOD 03/29/2025 7:35 PM EDT [facility] Hematocrit, Whole Blood 30.9(L) 40.0 - 51.0 % LAB HEMATOLOGY METHOD 03/29/2025 7:35 PM EDT [facility] Sodium, Whole Blood 140 136 - 145 mmol/L LAB HEMATOLOGY METHOD 03/29/2025 7:35 PM EDT [facility] Potassium, Whole Blood 3.8 3.6 - 4.9 mmol/L LAB HEMATOLOGY METHOD 03/29/2025 7:35 PM EDT [facility] Chloride, Whole Blood 108(H) 97 - 107 mmol/L LAB HEMATOLOGY METHOD 03/29/2025 7:35 PM EDT [facility] Glucose, Whole Blood 111(H) 74 - 99 mg/dL LAB HEMATOLOGY METHOD 03/29/2025 7:35 PM EDT [facility] Ionized Calcium, Whole Blood 4.5(L) 4.6 - 5.1 mg/dL LAB HEMATOLOGY METHOD 03/29/2025 7:35 PM EDT [facility] Lactate, Arterial, Whole Blood 1.5 0.5 - 1.6 mmol/L LAB HEMATOLOGY METHOD 03/29/2025 7:35 PM EDT [facility] Blood Arterial blood specimen / Unknown Arterial Puncture / Unknown 03/29/2025 7:20 PM EDT 03/29/2025 7:33 PM EDT us Nathen Da Silva MD LAB BLOOD ORDERABLES Final Resul t Performing Organization Address City/[facility]/ZIP Co de Phone Number [facility] [address] [place] [address] * [place] Less than 1 Hour Intraoperative (03/29/2025 6:30 PM EDT) Narrative IMAGING - 03/29/2025 7:18 PM EDT Images were obtained for surgical purposes. See Kana Maddox's surgical note in the patient's chart for the findings. us Kana Maddox MD IMG FLUOROSCOPY PROCEDURE S Final Result Performing Organization Address [facility] Co de Phone Number IMAGING * POCT ACT (03/29/2025 5:10 PM EDT) ACT+ (HIGH RANGE) 214 68 - 600 Seconds 04/28/2025 8:21 AM EDT [facility] [employer] Examiner ID Hunter Butler 04/28/2025 8:21 AM EDT [facility] ACT Device ID [id number] 04/28/2025 8:21 AM EDT [facility] Comment 04/28/2025 8:21 AM EDT [facility] Comment: ACT performed by staff [...] UNSOLICITED RESULTS Final Result Performing Organization Address [facility] Co de Phone Number HEALTHCARE LAB [address] LAB 800 [place] [address] * POCT ACT (03/29/2025 4:25 PM EDT) ACT+ (HIGH RANGE) 189 68 - 600 Seconds 04/28/2025 8:21 AM EDT [facility] [employer] Examiner ID Hunter Butler 04/28/2025 8:21 AM EDT [facility] ACT Device ID [id number] 04/28/2025 8:21 AM EDT [facility]ALTH[facility]ARE LAB Comment 04/28/2025 8:21 AM EDT [facility]: [facility] performed by staff at [...] UNSOLICITED RESULTS Final Result Performing Organization Address City/State/[facility] Co de Phone Number [facility] [address] [place] [address] * POCT ACT (03/29/2025 3:51 PM EDT) ACT+ (HIGH RANGE) 217 68 - 600 Seconds 04/28/2025 8:21 AM EDT HEALTHCARE LAB [employer] Examiner ID Hunter Butler 04/28/2025 8:21 AM EDT HEALTHCARE LAB ACT Device ID [id number] 04/28/2025 8:21 AM EDT HEALTHCARE LAB Comment 04/28/2025 8:21 AM EDT [facility] Comment: ACT performed by staff at [...] ST DOCKED DEVICE UNSOLICITED RESULTS Final Result [facility] [address] LAB 800 [place] [address] * (ABNORMAL) Blood gas panel, arterial (03/29/2025 2:48 PM EDT) pH, Arterial 7.41 7.31 - 7.42 LAB HEMATOLOGY METHOD 03/29/2025 3:05 PM EDT [facility] pCO2, Arterial 42 32 - 45 mmHg LAB HEMATOLOGY METHOD 03/29/2025 3:05 PM EDT [facility] pO2, Arterial 186 >60 mmHg LAB HEMATOLOGY METHOD 03/29/2025 3:05 PM EDT [facility] SO2, Measured, Arterial 100(H) 94 - 98 % LAB HEMATOLOGY METHOD 03/29/2025 3:05 PM EDT [facility] Base Excess, Arterial 1.5 -2.0 - 3.0 mmol/L LAB HEMATOLOGY METHOD 03/29/2025 3:05 PM EDT [facility] Bicarbonate, Calculated, Arterial 26 22 - 26 mmol/L LAB HEMATOLOGY METHOD 03/29/2025 3:05 PM EDT [facility] Hematocrit, Whole Blood 35.9(L) 40.0 - 51.0 % LAB HEMATOLOGY METHOD 03/29/2025 3:05 PM EDT [facility] Sodium, Whole Blood 142 136 - 145 mmol/L LAB HEMATOLOGY METHOD 03/29/2025 3:05 PM EDT [facility] Potassium, Whole Blood 3.8 3.6 - 4.9 mmol/L LAB HEMATOLOGY METHOD 03/29/2025 3:05 PM EDT [facility] Chloride, Whole Blood 105 97 - 107 mmol/L LAB HEMATOLOGY METHOD 03/29/2025 3:05 PM EDT [facility] Glucose, Whole Blood 106(H) 74 - 99 mg/dL LAB HEMATOLOGY METHOD 03/29/2025 3:05 PM EDT [facility] Ionized Calcium, Whole Blood 4.6 4.6 - 5.1 mg/dL LAB HEMATOLOGY METHOD 03/29/2025 3:05 PM EDT [facility] Lactate, Arterial, Whole Blood 1.0 0.5 - 1.6 mmol/L LAB HEMATOLOGY METHOD 03/29/2025 3:05 PM EDT [facility] Blood Arterial blood specimen / Unknown Arterial Puncture / Unknown 03/29/2025 2:48 PM EDT 03/29/2025 2:53 PM EDT Ian Lou WHEAT BUYER, DNP LAB BLOOD ORDERABLES F inal Result Performing Organization Address City/[facility]/ZIP Co de Phone Number [facility] 800 [place] [address] * Type and Screen (03/29/2025 10:52 AM [...] ORDERABLES F inal Result Performing Organization Address [facility] de Phone Number BLOOD BANK [address] [place] [address], * ECHO, ADULT TRANSTHORACIC COMPLETE W/ CONTRAST (03/29/2025 7:52 AM EDT) BSA 2.05 m2 [facility] ISCV Height 185.4 [facility] ISC[facility] Weight 80.7 [facility] ISCV LVIDs 27 mm [facility]ONT[facility] ISCV LA dimension 56 mm MONTY ISCV IVSd 8 mm MONTY ISCV LVIDd 49 mm MONTY ISCV LVPWd 10 mm MONTY ISCV LV MASS(C)D 152 g MONTY ISCV UK CV ECHO LV MASS INDEX 74 g/m2 MONTY ISCV LV RWT 0.37 mm MONTY ISCV Ao Root Diam 35 mm MONTY ISCV Asc Ao Diam 33 mm MONTY ISCV TR Vmax 255.5 cm/s MONTY ISCV TR Max PG 26 mmHG MONTY ISCV PA acc time 60 msec [facility]ONT[facility] ISCV mean PAP 52 mmHg [facility] ISCV PA RI(ACCEL) 52.1 mmHg MONTY ISCV PA acc slope [...] is no recent study available for direct [id number] comparison. Left Ventricle Based on the linear [...] is no recent study available for direct zcqv-bf-[id number] comparison. us Angelica Anderson TRANSIT CLERK, DNP CV ECHO PROCEDURES F inal Result * (ABNORMAL) CBC W/O Differential (03/29/2025 3:25 AM EDT) WBC Count 4.79 3.70 - 10.30 10*3/uL LAB HEMATOLOGY METHOD 03/29/2025 3:58 AM EDT [facility] RBC Count 4.23(L) 4.60 - 6.10 10*6/uL LAB HEMATOLOGY METHOD 03/29/2025 3:58 AM EDT [facility] HGB 12.5(L) 13.7 - 17.5 g/dL LAB HEMATOLOGY METHOD 03/29/2025 3:58 AM EDT [facility] HCT 37.0(L) 40.0 - 51.0 % LAB HEMATOLOGY METHOD 03/29/2025 3:58 AM EDT [facility] Platelet Count 186 155 - 369 10*3/uL LAB HEMATOLOGY METHOD 03/29/2025 3:58 AM EDT [facility] MCV 88 79 - 98 fL LAB HEMATOLOGY METHOD 03/29/2025 3:58 AM EDT [facility] MCH 29.6 26.0 - 32.0 pg LAB HEMATOLOGY METHOD 03/29/2025 3:58 AM EDT [facility] MCHC 33.8 30.7 - 35.5 g/dL LAB HEMATOLOGY METHOD 03/29/2025 3:58 AM EDT [facility] RDW 14.7(H) 11.5 - 14.5 % LAB HEMATOLOGY METHOD 03/29/2025 3:58 AM EDT [facility] MPV 10.2 8.8 - 12.5 fL LAB HEMATOLOGY METHOD 03/29/2025 3:58 AM EDT [facility] nRBC 0.0 <=0.0 per 100 WBCs LAB HEMATOLOGY METHOD 03/29/2025 3:58 AM EDT [facility] Blood Venous blood specimen / Unknown Venipuncture / Unknown 03/29/2025 3:25 AM EDT 03/29/2025 3:47 AM EDT us Fabián Salgado MD LAB BLOOD ORDERABLES Final Res ult [facility] [address] [place] [address] * Phosphorus (03/29/2025 3:25 AM EDT) Phosphorus, Plasma 2.5 2.5 - 4.5 mg/dL 03/29/2025 4:17 AM EDT [facility] Blood Venous blood specimen / Unknown Venipuncture / Unknown 03/29/2025 3:25 AM EDT 03/29/2025 3:47 AM EDT us Fabián Salgado MD LAB BLOOD ORDERABLES Final Res ult Performing Organization Address [facility]/ZIP Co de Phone Number [facility] [address] [place] [address] * Magnesium (03/29/2025 3:25 AM EDT) Magnesium, Plasma 2.0 1.9 - 2.4 mg/dL 03/29/2025 4:17 AM EDT [facility] Blood Venous blood specimen / Unknown Venipuncture / Unknown 03/29/2025 3:25 AM EDT 03/29/2025 3:47 AM EDT us Fabián Salgado MD LAB BLOOD ORDERABLES Final Res ult Performing Organization Address City/[facility] Co de Phone Number [facility] [address] [place] [address] * (ABNORMAL) Basic metabolic panel (03/29/2025 3:25 AM EDT) Glucose, Plasma 109(H) 74 - 99 mg/dL 03/29/2025 4:17 AM EDT [facility] BUN, Plasma 19 8 - 23 mg/dL 03/29/2025 4:17 AM EDT [facility] Creatinine, Plasma 0.82 0.70 - 1.20 mg/dL 03/29/2025 4:17 AM EDT [facility] BUN/Creatinine Ratio 23 03/29/2025 4:17 AM EDT [facility] Sodium, Plasma 141 136 - 145 mmol/L 03/29/2025 4:17 AM EDT [facility] Potassium, Plasma 3.8 3.6 - 4.9 mmol/L 03/29/2025 4:17 AM EDT [facility] Chloride, Plasma 105 97 - 107 mmol/L 03/29/2025 4:17 AM EDT [facility] CO2, Plasma 24 22 - 29 mmol/L 03/29/2025 4:17 AM EDT [facility] Anion Gap 12 6 - 16 mmol/L 03/29/2025 4:17 AM EDT [facility] Total Calcium, Plasma 9.0 8.9 - 10.2 mg/dL 03/29/2025 4:17 AM EDT [facility] eGFRcr 86.6 mL/min/1.7 3m*2 03/29/2025 4:17 AM EDT [facility] Comment:Reported eGFRcr in m L/min/1.73m2 is based the CKD-EPI 2020 equation that does not use a race coefficient. Blood Venous blood specimen / Unknown Venipuncture / Unknown 03/29/2025 3:25 AM EDT 03/29/2025 3:47 AM EDT us Fabián Salgado MD LAB BLOOD ORDERABLES Final Res ult [facility] [address] [place] [address] * (ABNORMAL) CBC W/O Differential (03/28/2025 4:05 AM EDT) WBC Count 4.10 3.70 - 10.30 10*3/uL LAB HEMATOLOGY METHOD 03/28/2025 4:24 AM EDT [facility] RBC Count 3.80(L) 4.60 - 6.10 10*6/uL LAB HEMATOLOGY METHOD 03/28/2025 4:24 AM EDT [facility] HGB 11.1(L) 13.7 - 17.5 g/dL LAB HEMATOLOGY METHOD 03/28/2025 4:24 AM EDT [facility] HCT 33.8(L) 40.0 - 51.0 % LAB HEMATOLOGY METHOD 03/28/2025 4:24 AM EDT [facility] Platelet Count 154(L) 155 - 369 10*3/uL LAB HEMATOLOGY METHOD 03/28/2025 4:24 AM EDT [facility] MCV 89 79 - 98 fL LAB HEMATOLOGY METHOD 03/28/2025 4:24 AM EDT [facility] MCH 29.2 26.0 - 32.0 pg LAB HEMATOLOGY METHOD 03/28/2025 4:24 AM EDT [facility] MCHC 32.8 30.7 - 35.5 g/dL LAB HEMATOLOGY METHOD 03/28/2025 4:24 AM EDT [facility] RDW 14.9(H) 11.5 - 14.5 % LAB HEMATOLOGY METHOD 03/28/2025 4:24 AM EDT [facility] MPV 9.9 8.8 - 12.5 fL LAB HEMATOLOGY METHOD 03/28/2025 4:24 AM EDT [facility] nRBC 0.0 <=0.0 per 100 WBCs LAB HEMATOLOGY METHOD 03/28/2025 4:24 AM EDT [facility] Blood Venous blood specimen / Unknown Venipuncture / Unknown 03/28/2025 4:05 AM EDT 03/28/2025 4:10 AM EDT Fabián Salgado MD LAB BLOOD ORDERABLES Final Res ult [facility] [address] [place] [address] * Light Green Top (03/28/2025 3:59 AM EDT) Extra Hold for add-ons 03/28/2025 7:01 AM EDT [facility] Comment:Auto resulted. Blood Venous blood specimen / Unknown 03/28/2025 3:59 AM EDT 03/28/2025 4:14 AM EDT us Fabián Salgado MD LAB BLOOD ORDERABLES Final Res ult [facility] [address] [place] [address] * VAS US Venous Duplex Lower Extremity [...] Fabián Salgado MD on 03/29/2025 2:36 PM us Fabián Salgado MD CV VASCULAR PROCEDURES Final R esult * (ABNORMAL) Hemoglobin A1c (03/26/2025 1:53 AM EDT) Hemoglobin A1c 5.8(H) <5.7 % 03/26/2025 12:06 PM EDT [facility] Blood Venous blood specimen / Unknown Venipuncture / Unknown 03/26/2025 1:53 AM EDT 03/26/2025 2:21 AM EDT Narrative [facility] - 03/26/2025 12:06 PM EDT HA1C Interpretive Data: Diagnosis of Diabetes: Diabetic > or = 6.5% Pre-diabetic 5.7 to 6.4% Non-diabetic < or = 5.6% Glycemic Targets for Type I and Type II Diabetics: Non- Adults <7.0% Adults <6.0% Children and Adolescents <7.5% Source: [place] [employer]. Standards of medical care in diabetes,2017. Diabetes Care.2017:40 (suppl 1):S1-S135. us Angelica Anderson APRN, SHREYAS LAB BLOOD ORDERABLES Final Result [facility] [address] [place] [address] * (ABNORMAL) Basic metabolic panel (03/26/2025 1:53 AM EDT) Glucose, Plasma 127(H) 74 - 99 mg/dL 03/26/2025 2:50 AM EDT [facility] BUN, Plasma 16 8 - 23 mg/dL 03/26/2025 2:50 AM EDT [facility] Creatinine, Plasma 0.83 0.70 - 1.20 mg/dL 03/26/2025 2:50 AM EDT [facility] BUN/Creatinine Ratio 19 03/26/2025 2:50 AM EDT [facility] Sodium, Plasma 136 136 - 145 mmol/L 03/26/2025 2:50 AM EDT [facility] Potassium, Plasma 4.3 3.6 - 4.9 mmol/L 03/26/2025 2:50 AM EDT [facility] Chloride, Plasma 105 97 - 107 mmol/L 03/26/2025 2:50 AM EDT [facility] CO2, Plasma 21(L) 22 - 29 mmol/L 03/26/2025 2:50 AM EDT [facility] Anion Gap 10 6 - 16 mmol/L 03/26/2025 2:50 AM EDT [facility] Total Calcium, Plasma 8.0(L) 8.9 - 10.2 mg/dL 03/26/2025 2:50 AM EDT [facility] eGFRcr 86.3 mL/min/1.7 3m*2 03/26/2025 2:50 AM EDT [facility] Comment:Reported eGFRcr in m L/min/1.73m2 is based the CKD-EPI 2020 equation that does not use a race coefficient. Blood Venous blood specimen / Unknown Venipuncture / Unknown 03/26/2025 1:53 AM EDT 03/26/2025 2:21 AM EDT us Fabián Salgado MD LAB BLOOD ORDERABLES Final Res ult [facility] [address] [place] [address] * (ABNORMAL) CBC (03/26/2025 1:53 AM EDT) WBC Count 3.08(L) 3.70 - 10.30 10*3/uL LAB HEMATOLOGY METHOD 03/26/2025 2:29 AM EDT [facility] RBC Count 3.76(L) 4.60 - 6.10 10*6/uL LAB HEMATOLOGY METHOD 03/26/2025 2:29 AM EDT [facility] HGB 10.9(L) 13.7 - 17.5 g/dL LAB HEMATOLOGY METHOD 03/26/2025 2:29 AM EDT [facility] HCT 32.4(L) 40.0 - 51.0 % LAB HEMATOLOGY METHOD 03/26/2025 2:29 AM EDT [facility] Platelet Count 153(L) 155 - 369 10*3/uL LAB HEMATOLOGY METHOD 03/26/2025 2:29 AM EDT [facility] MCV 86 79 - 98 fL LAB HEMATOLOGY METHOD 03/26/2025 2:29 AM EDT [facility] MCH 29.0 26.0 - 32.0 pg LAB HEMATOLOGY METHOD 03/26/2025 2:29 AM EDT [facility] MCHC 33.6 30.7 - 35.5 g/dL LAB HEMATOLOGY METHOD 03/26/2025 2:29 AM EDT [facility] RDW 14.1 11.5 - 14.5 % LAB HEMATOLOGY METHOD 03/26/2025 2:29 AM EDT [facility] MPV 10.1 8.8 - 12.5 fL LAB HEMATOLOGY METHOD 03/26/2025 2:29 AM EDT [facility] nRBC 0.0 <=0.0 per 100 WBCs LAB HEMATOLOGY METHOD 03/26/2025 2:29 AM EDT [facility] Blood Venous blood specimen / Unknown Venipuncture / Unknown 03/26/2025 1:53 AM EDT 03/26/2025 2:21 AM EDT us Fabián Salgado MD LAB BLOOD ORDERABLES Final Res ult [facility] [address] [place] [address] * ECG Adult (03/25/2025 8:10 PM EDT) EKG DIAGNOSIS CLASS Borderline Normal MUSE ECG Ventricular Rate 69 BPM MUSE ECG Atrial Rate 69 BPM MUSE ECG RI Interval 160 ms MUSE ECG QRSD Interval 82 ms MUSE ECG QT Interval 442 ms MUSE ECG QTC Interval 473 ms MUSE ECG P [place] 106 degrees MUSE ECG R [place] 41 degrees MUSE ECG T Wave [place] 55 degrees MUSE ECG Diagnosis Sinus rhythm with premature supraventricular complexes MUSE ECG Diagnosis Otherwise normal ECG MUSE ECG Diagnosis MUSE ECG Diagnosis Confirmed by Najma Sam ([id number]) on 03/26/2025 9:36:45 PM MUSE ECG 03/25/2025 8:10 PM EDT 03/26/2025 9:36 PM EDT Result [facility] Fabián Salgado MD ECG ORDERABLES Final Result Performing Organization Address [facility] Co de Phone Number MUSE ECG * FL Less than 1 Hour Intraoperative (03/25/2025 3:34 PM EDT) Narrative IMAGING - 03/25/2025 4:12 PM EDT Images were obtained for surgical purposes. See Fabián Salgado's surgical note in the patient's chart for the findings. Result [facility] Fabián Salgado MD IMG FLUOROSCOPY PROCEDURES Fin al Result Performing Organization Address [facility] de Phone Number IMAGING * POCT ACT (03/25/2025 2:18 PM EDT) ACT+ (HIGH RANGE) 233 68 - 600 Seconds 03/27/2025 3:59 AM EDT [facility] [employer] Examiner ID Clifford Aldana 03/27/2025 3:59 AM EDT [facility] ACT Device ID [id number] 03/27/2025 3:59 AM EDT HEALTHCARE LAB Comment 03/27/2025 3:59 AM EDT [facility] Comment: ACT performed by staff [...] 2:18 PM EDT 03/27/2025 3:59 AM EDT Result [facility] Fabián Salgado MD LAB POINT OF CARE TE ST DOCKED DEVICE UNSOLICITED RESULTS Final Result Performing Organization Address City/[facility] Co de Phone Number HEALTHCARE LAB [address] LAB [address] [place] [address] * POCT ACT (03/25/2025 1:36 PM EDT) ACT+ (HIGH RANGE) 299 68 - 600 Seconds 03/27/2025 3:59 AM EDT [facility] [employer] Examiner ID Eva Curry 03/27/2025 3:59 AM EDT HEALTHCARE LAB ACT Device ID [id number] 03/27/2025 3:59 AM EDT [facility] Comment 03/27/2025 3:59 AM EDT [facility] Comment: ACT performed by staff [...] 1:36 PM EDT 03/27/2025 3:59 AM EDT us Fabián Salgado MD LAB POINT OF CARE TE ST DOCKED DEVICE UNSOLICITED RESULTS Final Result Performing Organization Address City/[facility] de Phone Number HEALTHCARE LAB [address] LAB [address] [place] [address] * Type and screen (03/25/2025 11:28 AM EDT) ABO/Rh O Positive 03/25/2025 11:48 AM EDT [facility] Antibody Screen Negative 03/25/2025 11:48 AM EDT [facility] Specimen Expiration 03/28/2025 23:59 03/25/2025 11:48 AM EDT BLOOD BANK Blood Venous blood specimen / Unknown Venipuncture / Unknown 03/25/2025 11:28 AM EDT 03/25/2025 11:48 AM EDT us Fabián Salgado MD LAB BLOOD BANK TEST ORDERABLES Final Result Performing Organization Address [facility]/ZIP Co de Phone Number BLOOD BANK [address] [place] [address], * Protime-INR (03/25/2025 11:28 AM EDT) Prothrombin Time 14.3 12.0 - 14.3 sec LAB COAGULATION METHOD 03/25/2025 12:01 PM EDT [facility] INR 1.1 0.9 - 1.1 LAB COAGULATION METHOD 03/25/2025 12:01 PM EDT [facility] Blood Venous blood specimen / Unknown Venipuncture / Unknown 03/25/2025 11:28 AM EDT 03/25/2025 11:40 AM EDT Narrative [facility] - 03/25/2025 12:01 PM EDT OPTIMAL INR RANGES FOR PATIENT ON ORAL ANTICOAGULANT THERAPY Prevention of venous thromboembolism INR 2.0 to 3.0 In patients with heart disease: Atrial fibrillation INR 2.0 to 3.0 Valvular heart disease INR 2.0 to 3.0 Tissue heart valves INR 2.0 to 3.0 Mechanical prosthetic valves INR 2.5 to 3.5 Prevention of recurrent MS INR 2.5 to 3.5 Fabián Salgado MD LAB BLOOD ORDERABLES Final Res ult Performing Organization Address City/[facility]/ZIP Co de Phone Number [facility] [address] [place] [address] * (ABNORMAL) Basic metabolic panel (03/25/2025 11:28 AM EDT) Glucose, Plasma 107(H) 74 - 99 mg/dL 03/25/2025 12:07 PM EDT [facility] BUN, Plasma 16 8 - 23 mg/dL 03/25/2025 12:07 PM EDT [facility] Creatinine, Plasma 0.84 0.70 - 1.20 mg/dL 03/25/2025 12:07 PM EDT [facility] BUN/Creatinine Ratio 19 03/25/2025 12:07 PM EDT [facility] Sodium, Plasma 137 136 - 145 mmol/L 03/25/2025 12:07 PM EDT [facility] Potassium, Plasma 4.9 3.6 - 4.9 mmol/L 03/25/2025 12:07 PM EDT [facility] Comment:Hemolyzed, result ma y be falsely increased. Chloride, Plasma 103 97 - 107 mmol/L 03/25/2025 12:07 PM EDT [facility] CO2, Plasma 21(L) 22 - 29 mmol/L 03/25/2025 12:07 PM EDT [facility] Anion Gap 13 6 - 16 mmol/L 03/25/2025 12:07 PM EDT [facility] Total Calcium, Plasma 9.2 8.9 - 10.2 mg/dL 03/25/2025 12:07 PM EDT [facility] eGFRcr 86.0 mL/min/1.7 3m*2 03/25/2025 12:07 PM EDT [facility] Comment:Reported eGFRcr in m L/min/1.73m2 is based the CKD-EPI 2020 equation that does not use a race coefficient. Blood Venous blood specimen / Unknown Venipuncture / Unknown 03/25/2025 11:28 AM EDT 03/25/2025 11:40 AM EDT us Fabián Salgado MD LAB BLOOD ORDERABLES Final Res ult [facility] [address] [place] [address] * CBC (03/25/2025 11:28 AM EDT) WBC Count 4.00 3.70 - 10.30 10*3/uL LAB HEMATOLOGY METHOD 03/25/2025 11:47 AM EDT [facility] RBC Count 5.01 4.60 - 6.10 10*6/uL LAB HEMATOLOGY METHOD 03/25/2025 11:47 AM EDT [facility] HGB 14.7 13.7 - 17.5 g/dL LAB HEMATOLOGY METHOD 03/25/2025 11:47 AM EDT [facility] HCT 43.2 40.0 - 51.0 % LAB HEMATOLOGY METHOD 03/25/2025 11:47 AM EDT [facility] Platelet Count 170 155 - 369 10*3/uL LAB HEMATOLOGY METHOD 03/25/2025 11:47 AM EDT [facility] MCV 86 79 - 98 fL LAB HEMATOLOGY METHOD 03/25/2025 11:47 AM EDT [facility] MCH 29.3 26.0 - 32.0 pg LAB HEMATOLOGY METHOD 03/25/2025 11:47 AM EDT [facility] MCHC 34.0 30.7 - 35.5 g/dL LAB HEMATOLOGY METHOD 03/25/2025 11:47 AM EDT [facility] RDW 14.3 11.5 - 14.5 % LAB HEMATOLOGY METHOD 03/25/2025 11:47 AM EDT [facility] MPV 10.2 8.8 - 12.5 fL LAB HEMATOLOGY METHOD 03/25/2025 11:47 AM EDT [facility] nRBC 0.0 <=0.0 per 100 WBCs LAB HEMATOLOGY METHOD 03/25/2025 11:47 AM EDT [facility] Blood Venous blood specimen / Unknown Venipuncture / Unknown 03/25/2025 11:28 AM EDT 03/25/2025 11:40 AM EDT us Fabián Salgado MD LAB BLOOD ORDERABLES Final Res ult [facility] [address] [place] [address] documented in this encounter Visit Diagnoses Diagnosis Peripheral arterial disease- Primary Unspecified peripheral vascular disease Peripheral arterial disease (CMS/HCC) Unspecified peripheral vascular disease Postoperative hypotension Other iatrogenic hypotension Ischemic ulcer, 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) Hypophosphatemia Disorders of phosphorus metabolism Hypomagnesemia Disorders of magnesium metabolism History of prostate cancer Personal history of malignant neoplasm of prostate 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, unspecified vessel or [...] Ischemic ulcer, limited to breakdown of skin ([facility]/HCC) Peripheral arterial disease Unspecified peripheral vascular disease documented in this encounter Administered Medications Inactive Administered Medications - up to 3 most recent administrations Medication Order MAR Action Action Date Dose Rate Site acetaminophen (Tylenol) tablet 1,000 mg 1,000 mg, Oral, Every 8 hours, First dose on Diane 03/25/25 at 1615, Until Discontinued, Routine Given 04/01/2025 [...] Given 04/01/2025 9:19 AM EDT 5 mg bisoprolol (Zebeta) tablet 5 mg 5 mg, Oral, Daily, First dose on Diane 04/01/25 at 1915, Until Discontinued, Routine Given 04/02/2025 8:29 AM EDT 5 mg Given 04/01/2025 7:50 PM EDT 5 mg cadexomer iodine (Iodosorb) 0.9 % gel Topical, Daily, First dose on Sat03/26/25 at 1415, Until Discontinued, Routine Given 04/02/2025 12:06 PM EDT Given 04/01/2025 12:30 PM EDT Given 03/31/2025 4:39 PM EDT calcium-vitamin D 500-200 MG-UNIT per tablet 1 tablet 1 tablet, Oral, Daily, First dose on Sat03/26/25 at 0900, Until Discontinued, Routine Given 04/02/2025 8:29 AM EDT 1 tablet Given 04/01/2025 9:19 AM EDT 1 tablet Given 03/31/2025 8:35 AM EDT 1 tablet ceFAZolin (Ancef) 1 g in sodium chloride 0.9 % 1,000 mL OR irrigation Continuous PRN, Starting on Sat03/29/25 at 1342, Until Sat03/29/25 at 1829, Routine New Bag 03/29/2025 1:42 PM EDT clopidogrel (Plavix) tablet 75 mg 75 mg, [...] Given 03/31/2025 8:35 AM EDT 324 mg heparin (porcine) 10,000 Units in sodium chloride 0.9 % 1,002 mL OR irrigation Continuous PRN, Starting on Sat03/29/25 at 1341, Until Sat03/29/25 at 1829, Routine New Bag 03/29/2025 1:41 PM EDT iodixanol (VISIPaque) 320 MG/ML injection As needed, Starting on Sat03/29/25 at 1747, Until Sat03/29/25 at 1829, Routine, Intraprocedure Given 03/29/2025 5:47 PM EDT 5 mL Srinath powder 1 packet 1 packet, Oral, 2 times daily, First dose on Sat04/02/25 at 0915, Until Discontinued, Routine Given 04/02/2025 8:30 AM EDT 1 packet melatonin tablet 6 mg 6 mg, Oral, Nightly PRN, Starting on Sat03/25/25 at 1526, Until Sat04/02/25 at 1605, Routine, sleep Given 04/01/2025 7:50 PM EDT 6 mg Given 03/31/2025 8:18 PM EDT 6 mg Given 03/28/2025 10:17 PM EDT 6 mg mupirocin (Bactroban) 2 % ointment 1 Application Each Nostril, 2 times daily, 10 doses, First dose on 03/29/25 at 2300, Last dose on Sat04/03/25 at 0900, Routine Given 04/02/2025 8:29 AM EDT 1 Application Given 04/01/2025 8:33 PM EDT 1 Application Given 04/01/2025 9:52 AM EDT 1 Application ondansetron (Zofran) 4 MG/5ML solution 4 mg [...] Given 03/31/2025 8:35 AM EDT 10 mg phosphorus (K Phos Neutral) tablet 1 tablet 1 tablet (250 mg), Oral, Daily, First dose on Sat04/02/25 at 0900, Until Discontinued, Routine Given 04/02/2025 8:29 AM EDT 1 tablet predniSONE (Deltasone) tablet 5 mg 5 mg, [...] Sat03/25/25 at 2100, Until Discontinued, Routine Given 04/01/2025 8:33 PM EDT 17.2 mg Given 03/30/2025 8:23 PM EDT 17.2 mg Given 03/29/2025 10:13 PM EDT 17.2 mg documented in this encounter Active and Recently Administered Medications Times are shown in EDT. Scheduled Medication Order 03/31/2025 04/01/2025 04/02/2025 acetaminophen (Tylenol) tablet 1,000 mg 1,000 mg, Oral, Every 8 hours, First dose on Sat03/25/25 at 1615, Until Discontinued, Routine 0835 (Given [...] Routine 1830 (Not Given - Provider: Aruna Kennedy RN - Reason: Order changed)1950 (Given - Provider: Rolando Montero) 0829 (Given - Provider: Jovon Nicole RN) cadexomer iodine (Iodosorb) 0.9 % gel Topical, Daily, First dose on Sat03/26/25 at 1415, Until Discontinued, Routine 1639 (Given - Provider: Tsering Marie RN) 1230 (Given - Provider: Aruna Kennedy RN - Comment: used when patient bathed) 1206 (Given - Provider: Jalyn White RN) calcium-vitamin D 500-200 MG-UNIT per tablet 1 tablet 1 tablet, Oral, Daily, First dose on Sat03/26/25 at 0900, Until Discontinued, Routine 0835 (Given - Provider: Tsering Marie RN) 09 (Given - Provider: Tsering Marie RN - Comment: pt on bedpan) 08 (Given - Provider: Jovon Nicole RN) clopidogrel (Plavix) tablet 75 mg 75 mg, Oral, Daily, First dose on Sat03/31/25 at 0900, Until Discontinued, Routine 0835 (Given - Provider: Tsering Marie RN) 0919 (Given - Provider: Tsering Marie RN - Comment: pt on bedpan) 08 (Given - Provider: Jovon Nicole RN) cyanocobalamin (Vitamin B-12) tablet 1,000 mcg 1,000 mcg, Oral, Daily with lunch, First dose on Sat03/26/25 at 1200, Until Discontinued 1128 (Given - Provider: Tsering Marie RN) 1224 (Given - Provider: Aruna Kennedy, RN) 1252 (Given - Provider: Jalyn Whiet, MERCEDES) docusate sodium (Colace) capsule 100 mg 100 mg, Oral, 2 times daily, First dose on Diane 03/25/25 at 2100, Until Discontinued, Routine 0835 (Given - Provider: Tsering Marie RN)2157 (Not Given - Provider: Rolando Montero - Reason: Patient/family refused - Comment: Patient educated on importance of regular BM;) 918 (Given - Provider: Tsering Marie RN - Comment: pt on bedpan)2032 (Given - Provider: Rolando Montero) 828 (Given - Provider: Jovon Nicole RN) ferrous sulfate EC tablet 324 mg 324 mg, Oral, Daily with breakfast, First dose on Sat03/26/25 at 0800, Until Discontinued 0835 (Given - Provider: Tsering Marie RN) 918 (Given - Provider: Tsering Marie RN - Comment: pt on bedpan) 828 (Given - Provider: Jovon Nicole RN) Srinath powder 1 packet 1 packet, Oral, 2 times daily, First dose on Sat04/02/25 at 0915, Until Discontinued, Routine 0830 (Given - Provider: Jovon Nicole RN) lactated Ringer's bolus 1,000 mL (COMPLETED) 1,000 mL, Intravenous, Once, 1 dose, On Sat03/31/25 at 0115, Administer over 2 Hours, Routine 0027 (New Bag - Provider: Mayela Hazel)0100 (Rate/Dose Verify - Provider: Mayela Hazel)0200 (Rate/Dose Verify - Provider: Mayela Hazel) mupirocin (Bactroban) 2 % ointment 1 Application Each Nostril, 2 times daily, 10 doses, First dose on 03/29/25 at 2300, Last dose on Sat04/03/25 at 0900, Routine 0835 (Given - Provider: Tsering Marie RN)2019 (Given - Provider: Rolando Montero) 951 (Given - Provider: Tsering Marie RN)2032 (Given - Provider: Rolando Montero) 828 (Given - Provider: Jovon Nicole RN) oxybutynin XL (Ditropan-XL) 24 hr tablet 10 mg 10 mg, Oral, Daily, First dose (after last modification) on Sat03/31/25 at 0900, Until Discontinued 834 (Given - Provider: Tsering Marie RN) 929 (Given - Provider: Tsering Marie RN) 828 (Given - Provider: Jovon Nicole RN) phosphorus (K Phos Neutral) tablet 1 tablet 1 tablet (250 mg), Oral, Daily, First dose on Sat04/02/25 at 0900, Until Discontinued, Routine 828 (Given - Provider: Jovon Nicole RN) potassium [...] 0345, Routine 0312 (Given - Provider: Rolando Montero) predniSONE (Deltasone) tablet 5 mg 5 mg, Oral, Daily, First dose (after last modification) on Sat03/31/25 at 0900, Until Discontinued, Routine 08 (Given - Provider: Tsering Marie RN) 918 (Given - Provider: Tsering Marie RN - Comment: pt on bedpan) 828 (Given - Provider: Jovon Nicole RN) pregabalin (Lyrica) capsule 100 mg 100 mg, Oral, 2 times daily, First dose on Sat03/25/25 at 2100, Until Discontinued, Routine 0835 (Given - Provider: Tsering Marie RN)2018 (Given - Provider: Rolando Montero) 918 (Given - Provider: Tsering Marie RN - Comment: pt on bedpan)2032 (Given - Provider: Rolando Montero) 0829 (Given - Provider: Jovon Nicole, MERCEDES) senna (Senokot) tablet 17.2 mg 17.2 mg (2 tablet), Oral, Nightly, First dose on Diane 03/25/25 at 2100, Until Discontinued, Routine 215 (Not Given - Provider: Rolando Montero - Reason: Patient/family refused - Comment: Patient educated on importance of regular BM;) 2032 (Given - Provider: Rolando Montero) sodium chloride 0.9 % bolus 250 mL (COMPLETED) 250 mL, Intravenous, Once, 1 dose, On Sat03/31/25 at 1200, Administer over 60 Minutes, Routine 1130 (New Bag - Provider: Tsering Marie, MERCEDES)1200 (Rate/Dose Verify - Provider: Tsering Marie RN) sodium chloride 0.9 % bolus 250 mL (COMPLETED) 250 mL, Intravenous, Once, 1 dose, On Sat03/31/25 at 1630, Administer over 60 Minutes, Routine 1637 (New Bag - Provider: Tsering Marie, [place]) Sodium Phosphate-NaCl IVPB 15 mmol (COMPLETED) 15 mmol, Intravenous, Once, 1 dose, On Diane 04/01/25 at 1745, Routine 1821 (Given - Provider: Aruna Kennedy, [place]) sodium phosphates 30 mmol in sodium chloride 0.9 % 500 mL IVPB (COMPLETED) 30 mmol, Intravenous, Once, 1 dose, On Diane 04/01/25 at 0515, Routine 0547 (New Bag - Provider: Rolando Montero)0700 (Rate/Dose Verify - Provider: Tsering Marie RN)0800 (Rate/Dose Verify - Provider: Tsering Marie, MERCEDES) sodium phosphates 30 mmol in sodium [...] at 0115, Until 03/31/25 at 1105, Routine 0000 (Rate/Dose Verify - [...] Titrated, Starting on Sat03/30/25 at 1115, Until Diane 04/01/25 at 0552, STAT 0000 (Rate/Dose Change - [...] Comment: MD AT BEDSIDE AND TURNED OFF DRIP)0959 (New Bag - Provider: Tsering Marie RN [...] documented as of this encounter Care Teams Cloth Shader Relationship Specialty Start Date End Date Josee Preciado APRN [address] [place] [address] PCP - General 03/15/25 documented as of this encounter
--- OUTSIDE RECORDS SUMMARY | 2025-03-29 12:30 | XMS_ITS | Encounter Summary ---
Author Organization [facility] Address [address] [place] [address] Care Team Providers Care Quirk Sander Name Role Phone Josee Preciado APRN Primary Care Provider [phone] Reason for Visit * Auth/Cert (Routine) Specialty Diagnoses / Procedures Referred By Contchintan t Referred To Contact Diagnoses Ischemic ulcer, 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) Peripheral arterial disease Ischemic ulcer, 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) [L98.491] Peripheral arterial disease (CMS/HCC) [I73.9] Procedures MS REVASCULARIZE ILIAC ARTERY,ANGIOPLASTY, INITIAL VESSEL MS VEIN BYPASS GRAFT,FEM-TIBIAL Lower Extremity Angioplasty +/- Stent CREATION, BYPASS, ARTERIAL, FEMORAL TO POSTERIOR TIBIAL, PERONEAL, OR DORSALIS PEDIS Fabián Salgado MD [address] [facility] [address] [place] [address] Phone: tel: fax: [facility] [address] [place] [address] Phone: tel: Referral ID Status Reason Start Date Expiration Date Visits Re quested Visits Authorized [id number] 1 1 Encounter Details Date Type Department Care Team (Late st Contact Info) Description 03/29/2025 1:30 PM EDT Anesthesia Event [facility] [address] [place] [address] Henry Harris MD [address] [place] [address] Telma Rader PA [address] [place] [address] Anesthesia Record Procedure Summary Procedure Name Responsible Anesthesiologist Anesthesia Start Time Anesthesia Stop Time Left lower extremity femoral to distal arterial bypass, femoral endarterectomy (Left: Leg Lower) Henry Harris MD 03/29/25 1330 03/29/25 1834 Events Date Time Event Comment 03/29/2025 1314 1329 In Room 1330 An Start The patient was reevaluated immediately before sedation and remains eligible for anesthesia plan. 1330 An Start Data 1335 An Induction The patient was reevaluated immediately before moderate or deep sedation use and before anesthesia induction. 1337 An Intubation 1400 Anesthesia Ready 1425 Proc Start 1447 Andreas ABG sent 1555 Andreas ACT 217 1628 Andreas ACT 189 1637 An Tourn Inflated 1714 Andreas ACT 214 1719 An Tourn Deflated 1814 An Extubation 1821 Proc Fin 1827 an stop data 1829 Out of Room 1834 Handoff to Receiving I compl eted my handoff to the receiving clinician during which we: 1. Identified the patient 2. Identified the responsible provider 3. Reviewed the pertinent medical history 4. Discussed the surgical course 5. Reviewed intra-op anesthesia management and issues during anesthesia 6. Set expectations for post-procedure period 7. Allowed opportunity for questions and acknowledgement of understanding. 183 An Stop Meds Name Total propofol (Diprivan) injection 10 mg/mL 2 80 mg rocuronium (ZeMuron) injection 10 mg/mL 120 mg fentaNYL (Sublimaze) injection 50 mcg/mL 100 mcg phenylephrine (Facundo-Synephrine) prefilled syringe 1 mg/10 mL 2,400 mcg Lidocaine HCl 100 MG/5ML 60 mg ePHEDrine injection prefilled syringe 5 mg/mL 35 mg ceFAZolin (Ancef) vial 1 g 4 g phenylephrine infusion 100 mcg/mL 5.09 m g heparin injection 1,000 units/mL 16,500 Units protamine injection 50 mg dexamethasone (Decadron) injection 4 mg/ mL 4 mg heparin 25,000 units/250 mL (100 units/m L) infusion 483.33 Units HYDROmorphone PF (Dilaudid) injection 1 mg/mL 1 mg sugammadex (Bridion) injection 100 mg/mL 200 mg lactated Ringer's infusion 800 mL sodium chloride 0.9 % infusion 1,000 mL sodium chloride 0.9 % infusion 0 mL electrolyte (Isolyte or Plasma-lyte) IV solution 1,000 mL * Agents No agents on file. * Blood No blood administrations on file. Lines, Drains, and Airways Type Details Placement Removal Wound 12/15/24; 1111; Yes; Foot; Anterior, Left 12/15/24 1111 by Erika Huffman RN Wound 12/15/24; 1113; Yes; Foot; Anterior, Left 12/15/24 1113 by Erika Huffman RN Wound 03/25/25; 1310; Yes; Surgical; Catheter Ent; Groin; Right 03/25/25 1310 by Clifford Aldana RN Wound 03/25/25; 1901; Othe r (friction/shear); Buttocks; Mid 03/25/25 1901 by Aruna Giron RN Wound 03/29/25; 1431; Surgical; Pretibial; Left, Inner 03/29/25 1431 by Ian Cifuentes RN Wound 03/29/25; 1432; N; Y es; Pelvis; Left 03/29/25 1432 by Ian Cifuentes RN Peripheral IV Placement Date: 03/25/25; Placement Time: 1143; Catheter Size: 18 G; Orientation: Posterior, Right; Location: Hand; Site Prep: Chlorhexidine ; Local Anesth: [place]; Technique: Anatomical landmarks; Inserted by: Gilma LONG; Insertion Attempts: 1; Patient Tolerance: Tolerated well; Removal Date: 03/31/25; Removal Time: 1600; Removal Reason: Removed by patient 03/25/25 1143 by Felicita Gilliam RN 03/31/25 1600 by Tsering Marie RN Male External Urinary Catheter 03/27/25; 0000; 03/29/25; 1343; 03/29/25; Other (Comment) (In OR) 03/27/25 0000 by Aruna Giron RN 03/29/25 1343 by Ian Cifuentes RN ETT Placement Date: 03/29/25; Placement Time: 1337 (created via procedure documentation); Technique: Direct laryngoscopy; Type: ETT - single; Single Lumen Tube Size: 7.5 mm; Cuffed: Yes; Laryngoscope: Hooker; Blade Size: 2; Location: Oral; Grade View: Grade I; Insertion Attempts: 1; Placement Verification: Auscultation, Capnometry; Airway Comments: Atraumatic. No change to dentition. ; Placed by: THUY; Removal Date: 03/29/25; Removal Time: 18103/29/25 1337 by Ian Lou CRNA, SHREYAS 03/29/25 1814 by Ian Lou CRNA, SHREYAS Urethral Catheter Placement Date: 03/29/25; Placement Time: 1343; Inserted by: Sheryl LONG; Type: Non-latex; Size: 16 Fr.; Balloon Size: 10 mL; Urine Returned: Yes; Removal Date: 03/31/25; Removal Time: 1600; Removal Reason: Per order 03/29/25 1343 by Ian Cifuentes RN 03/31/25 1600 by Tsering Marie RN Peripheral IV Placement Date: 03/29/25; Placement Time: 1345 (created via procedure documentation); Catheter Size: 16 G; Orientation: Left; Location: Hand; Local Anesth: None; Inserted by: Henry Harris MD; Insertion Attempts: 1; Removal Date: 04/02/25; Removal Time: 1210 03/29/25 1345 by Ian Lou CRNA, SHREYAS 04/02/25 1210 by Jalyn White RN Peripheral IV Placement Date: 03/29/25; Placement Time: 1350 (created via procedure documentation); Catheter Size: 16 G; Orientation: Left; Location: Wrist; Inserted by: Henry Harris MD; Insertion Attempts: 1; Removal Date: 03/31/25; Removal Time: 1600; Removal Reason: Leaking 03/29/25 1350 by Ian Lou CRNA, SHREYAS 03/31/25 1600 by Tsering Marie RN Arterial Line Placement Date: 03/29/25; Placement Time: 1358 (created via procedure documentation); Size: (18 gauge); Orientation: Right; Location: Brachial; Inserted by: THUY; Securement: Taped; Patient Tolerance: Tolerated well; Removal Date: 04/01/25; Removal Time: 1230; Removal Reason: Per order 03/29/25 1358 by Ian Lou CRNA, SHREYAS 04/01/25 1230 by rAuna Kennedy RN Negative Pressure Wound Therapy 03/29/25; 1758; N; 03/29/25; Hip; Left; 04/02/25; 0730; Per order (by fast food shift supervisor prior to day shift RN arrival) 03/29/25 1758 by Ian Cifuentes RN 04/02/25 0730 by Jovon Nicole RN documented in this encounter Social History Tobacco [...] time in the past 12 m [facility], were you homeless or living in a residential (including now)? No 03/26/2025 [facility] Utilities Answer Date Recorded In the [...] as of this encounter Functional Status * Calculated C-SSRS Risk Score (Lifetime/Recent) Answer Date of Assessment Author No Risk Indicated 03/29/2025 8:00 AM EDT Ashley Lizama RN * Question Answer Date of Assessment Author 1. Wish to be (Past 1 Month) No 025 8:00 AM EDT Ashley Lizama RN 2. Non-Specific Active Suici peyton Thoughts (Past 1 Month) No 03/29/2025 8:00 AM EDT Ashley Lizama RN 6. Suicidal Behavior (Lifetime) No 8:00 AM EDT Ashley Lizama RN documented as of this encounter Miscellaneous Notes * Anesthesia Postprocedure Evaluation - Ian Lou CRNA, DNP - 03/29/2025 6:34 PM EDT Patient: Nicko Baumann Anesthesia Type: general Vitals Value Taken Time BP 112/50 03/29/25 18:37 Temp 98.4 03/29/25 18:37 Pulse 87 03/29/25 18:37 Resp 15 03/29/25 18:37 SpO2 97 % 03/29/25 18:37 Vitals shown include unfiled device data. Anesthesia Post Evaluation Patient location during evaluation: PACU Patient participation: complete - patient cannot participate Level of consciousness: sedated Pain management: adequate (pain score 0-3) Airway patency: natural airway Cardiovascular status: acceptable and hemodynamically stable Respiratory status: acceptable and face mask Hydration status: acceptable Nausea/Vomiting: No No notable events documented. * Anesthesia Procedure Notes - Ian Lou CRNA, DNP - 03/29/2025 2:48 PM EDTAssociated Order(s): Arterial Line Arterial Line: Date/Time: 03/29/2025 1:58 PM An arterial line was placed. Procedure performed using ultrasound guidance in the OR for the following indication(s): continuousblood pressure monitoring and blood sampling needed. Ultrasound was used to visualize vascular needle entry into the brachial artery AND ultrasound image was retained. A Catheter size: 18 gauge. (size), Arterial line catheter length: 4.5 inches. (length), Arrow (type) catheter was placed into the Right brachial artery and secured by tape and tegaderm and steri strips. Seldinger technique used Events: patient tolerated procedure well with no complications. Staffing Performed: THUY RESIDENTIAL SALES EXECUTIVE: Ian Lou CRNA, DNP * Anesthesia Procedure Notes - Ian Lou CRNA, DNP - 03/29/2025 2:42 PM EDTAssociated Order(s): Peripheral IV Peripheral IV Date/Time: 03/29/2025 1:50 PM Inserted by: Henry Harris MD Placement Needle size: 16 G Location: wrist Site prep: alcohol Attempts: 1 * Anesthesia Procedure Notes - Ian Lou CRNA, DNP - 03/29/2025 2:41 PM EDTAssociated Order(s): Peripheral IV Peripheral IV Date/Time: 03/29/2025 1:45 PM Inserted by: Henry Harris MD Placement Needle size: 16 G Location: hand Local anesthetic: none Site prep: alcohol Attempts: 1 * Anesthesia Procedure Notes - Ian Lou CRNA, DNP - 03/29/2025 2:41 PM EDTAssociated Order(s): Airway Airway Date/Time: 03/29/2025 1:37 PM Reason: elective Airway not difficult General Information and Staff Patient location during procedure: OR RESIDENTIAL SALES EXECUTIVE: Ian Lou CRNA, DNP Performed: RESIDENTIAL SALES EXECUTIVE Patient Condition Indications for airway management: anesthesia Patient position: sniffing Final Airway Details Final airway type: endotracheal airway Successful airway: ETT Cuffed: yes Successful intubation technique: direct laryngoscopy Adjuncts used in placement: intubating stylet Endotracheal tube insertion site: oral Blade: Hooker Blade size: #2 ETT size (mm): 7.5 Cormack-Lehane Classification: grade I - full view of glottis Placement verified by: chest auscultation and capnometry Measured from: lips ETT to lips (cm): 22 Additional Comments Atraumatic. No change to dentition. * Anesthesia Preprocedure Evaluation - Henry Harris MD - 03/29/2025 9:47 AM EDT Procedure Information Date/Time: 03/29/25 1130 Procedure: Left lower extremity femoral to distal arterial bypass, femoral endarterectomy (Left) - Left lower extremity femoral to distal arterial bypass with vein, femoral endarterectomy Location: [facility] / [facility] OR Surgeons: Fabián Salgado MD HPI Nicko Baumann is a 84 y.o. male with body mass index is 23.51 kg/m??. who presents with Peripheral arterial disease now for above procedure PMH: ERIC, PAD, carotid artery disease, HTN, RA, peripheral neuropathy, CAD s/p 4 vessel CABG, chronic neutropenia, prostate cancer S/p Lupron now in remission AIRWAY HISTORY: Date Difficult Airway Blade Size ETT Size C-L Class Final Type Intubation Method 03/25/25 No 3 7.5 grade I - full view of glottis endotracheal airway video laryngoscopy 09/03/23 No 3 8.0 grade IIa - partial view of glottis endotracheal airway direct laryngoscopy NPO STATUS: Activity Level/METS: Type & Screen Expires: reordered Lab Results Component Value Date ABO O Positive 03/29/2025 ALLERGIES Allergies[1] MEDICATIONS Outpatient Current Outpatient Medications Medication Instructions acetaminophen (TYLENOL) [...] pregabalin (LYRICA) 100 mg, 2 times daily Scheduled Current Scheduled Medications[2] PRNs Current PRN Medications[3] SURGICAL HX: Surgical History[4] SOCIAL HX: Social History[5] OBJECTIVE DATA Blood pressure (!) 162/76, pulse 63, temperature 36.8 ??C (98.2 ??F), temperature source Oral, resp. rate 16, height 1.854 m (6' 0.99 ), weight 80.8 kg (178 lb 2.1 oz), SpO2 100%. LABS Lab Results Component Value Date WBC 4.79 03/29/2025 HGB 12.5 (L) 03/29/2025 HCT 37.0 (L) 03/29/2025 MCV 88 03/29/2025 PLT 186 03/29/2025 Lab Results Component Value Date CALCIUM 9.0 03/29/2025 BUN 19 03/29/2025 CREATININE 0.82 03/29/2025 BCR 23 03/29/2025 NA 141 03/29/2025 K 3.8 03/29/2025 CL 105 03/29/2025 CO2 24 03/29/2025 ANIONGAP 12 03/29/2025 No results found for: APTT , INR Lab Results Component Value Date HGBA1C 5.8 (H) 03/26/2025 GLUCOSE 109 (H) 03/29/2025 ABG No results found for: PHART , TKQ7NSG , PO2ART , SO2ART , BEART , AFY4CQX , HCTART , SODIUMART , POTASSIUMART , POCTCL , POCGLU , IONCALART , LACTATE No results found for: PH , PCO2 , PO2 , Q6XBWEXW , BASEEXC , HCTSYR , KSYR , CLSYR , GLUSYR , CAION , LACTATE EKG Encounter Date: 03/25/25 ECG Adult Result Value EKG DIAGNOSIS CLASS Borderline Normal Ventricular Rate 69 Atrial Rate 69 MS Interval 160 QRSD Interval 82 QT Interval 442 QTC Interval 473 P Sinclair 106 R Sinclair 41 T Wave Sinclair 55 Diagnosis Sinus rhythm with premature supraventricular complexes Diagnosis Otherwise normal ECG Diagnosis Diagnosis Confirmed by Najma Sam ([id number]) on 03/26/2025 9:36:45 PM *Note: Due to a large number of results and/or encounters for the requested time period, some results have not been displayed. A complete set of results can be found in Results Review. ECHO Echo, Adult Transthoracic Complete Result Date: 03/29/2025 Left Ventricle: Based on the linear dimension and/or 2D volumes, the left ventricle is normal in size. There is normal left ventricular myocardial thickness and mass. No left ventricular mass or thrombus is seen. The left ventricular systolic function is normal. The LVEF is visually estimated at 50- 55%. The inferior wall is hypokinetic. Right Ventricle: The right ventricle is normal in size. There is normal right ventricular wall thickness. The right ventricular systolic function is normal. The estimated right ventricular systolic pressure is 34 mmHg. Right ventricular systolic pressure is normal (<35mmHg). There is no recent study available for direct [id number] comparison. CXR: Physical Exam Airway Mallampati: II Mouth opening: normal TM distance: >3 FB Neck ROM: full Cardiovascular Rhythm: regular Rate: normal (-) murmur Dental (+) edentulous Pulmonary Breath sounds clear to auscultation (+) decreased breath sounds Neurological Oriented: normal to time, normal to place and normal to person and oriented to person, place and time Skin Musculoskeletal Extremities Anesthesia Plan ASA 4 Anesthesia technique(s) discussed with the patient/family: general Anesthesia plan agreed upon was: general Anesthetic plan and risks discussed with spouse and patient. Use of blood products discussed with patient and spouse who consented to blood products. ROS Anesthesia: Date of last anesthetic: 03/25/25 history of previous anesthesia and obstructive sleep apnea. Does not have a history of anesthetic complications. Cardiovascular: CAD and carotid artery disease. Does not have pacemaker. hypertension: Respiratory: Negative respiratory ROS. HEENT: missing teeth (upper and lower dentures). Neurological: Negative neuro ROS. Musculoskeletal: arthritis. Autoimmune: rheumatoid arthritis. Integumentary: Negative skin ROS. Gastrointestinal: Negative GI ROS. Genitourinary: Negative ROS. Hematological/Lymphatic: Hem/Lymph ROS additional comments: Hx of prostate cancer s/p lupron Endocrine/Metabolic: Negative endocrine ROS. ECHO (Last 10 results in 5 years) 03/29/25 0752 Narrative: Echo, Adult Transthoracic Complete Left Ventricle: Based on the linear dimension [...] is no recent study available for direct [id number] comparison. Airway Detailed Review Displaying the 20 most recent records Date Difficult Airway Blade Size ETT Size C-L Class Final Type Intubation Method 03/25/25 No 3 7.5 grade I - full view of glottis endotracheal airway video laryngoscopy 09/03/23 No 3 8.0 grade IIa - partial view of glottis endotracheal airway direct laryngoscopy [1] No Known Allergies [2] [Transfer Hold] acetaminophen, 1,000 mg, Oral, q8h [Transfer Hold] aspirin, 81 mg, Oral, q AM [Transfer Hold] bicalutamide, 50 mg, Oral, q AM [Transfer Hold] bisoprolol, 5 mg, Oral, q AM [Transfer Hold] cadexomer iodine, , Topical, Daily [Transfer Hold] calcium-vitamin D, 1 tablet, Oral, Daily [Transfer Hold] cyanocobalamin, 1,000 mcg, Oral, Daily with lunch [Transfer Hold] docusate sodium, 100 mg, Oral, BID [Transfer Hold] ferrous sulfate, 324 mg, Oral, Daily with breakfast [Transfer Hold] furosemide, 20 mg, Oral, q AM [Transfer Hold] heparin (porcine), 5,000 Units, Subcutaneous, q8h RENU lactated Ringer's, 100 mL/hr, Intravenous, Once [Transfer Hold] oxybutynin XL, 10 mg, Oral, q AM [Transfer Hold] predniSONE, 5 mg, Oral, q AM [Transfer Hold] pregabalin, 100 mg, Oral, BID [Transfer Hold] senna, 2 tablet, Oral, Nightly Insert peripheral IV, , , Once AND Saline lock IV, , , Once AND sodium chloride, 10 mL, Intravenous, q12h AND sodium chloride, 10 mL, Intravenous, PRN Insert peripheral IV, , , Once AND Saline lock IV, , , Once AND sodium chloride, 10 mL, Intravenous, q12h AND sodium chloride, 10 mL, Intravenous, PRN [3] PRN medications: [Transfer Hold] hydrALAZINE, [Transfer Hold] labetalol, lidocaine, [Transfer Hold] melatonin, [Transfer Hold] ondansetron ODT OR [Transfer Hold] ondansetron OR [Transfer Hold] ondansetron, [Transfer Hold] oxyCODONE, Insert peripheral IV AND Saline lock IV AND sodium chloride AND sodium chloride, Insert peripheral IV AND Saline lock IV AND sodium chloride AND sodium chloride [4] Past Surgical History: Procedure Laterality Date CORONARY ARTERY BYPASS GRAFT 2004 s/p 4v. CABG. LUMBAR LAMINECTOMY 09/03/2023 L2-5 LAMINECTOMY, SPINE, LUMBAR, FOR DECOMPRESSION (Spine Lumbar). [5] Social History Tobacco Use Smoking status: Former Average packs/day: 1 pack/day for 20.0 years (20.0 ttl pk-yrs) Types: Cigarettes Start date: 1954 Passive exposure: Never Smokeless tobacco: Never Vaping Use Vaping status: Never Used Substance Use Topics Alcohol use: Yes Comment: has an occ beer Drug use: Never documented in this encounter Plan of Treatment Upcoming Encounters Date Type Department Care Team (Late st Contact Info) Description 11/03/2025 12:00 PM EDT Appointment [facility] [address] [place] [address] 11/03/2025 1:00 PM EDT Appointment [facility] [address] [place] [address] 11/03/2025 2:20 PM EDT Office Visit [facility] [address] [place] [address] Kana Maddox MD [address] [facility] [address] [place] [address] documented as of this encounter Goals Goal Patient Goal Type Associated Problems Recent Progress Patient-Stated? Author Autogenera trevor Goal Care Plan Autogenerated Problem No Koki Pruitt DO documented as of this encounter Procedures Procedure Name Priority Date/Time Associated Diagnosis Comments PB POINT OF CARE IMAGING PLACEHOLDER Routine 03/29/2025 1:58 PM EDT PB ANESTHESIA NON-TIMED PROCEDURE PLACEHOLDER Routine 03/29/2025 1:58 PM EDT ANESTHESIA PERIPHERAL IV PLACEMENT Routine 03/29/2025 1:50 PM EDT ANESTHESIA PERIPHERAL IV PLACEMENT Routine 03/29/2025 1:45 PM EDT PB ANESTHESIA PLACEHOLDER Routine 03/29/2025 1:37 PM EDT MS AN ELECTIVE ENDOTRACHEAL AIRWAY Routine 03/29/2025 1:37 PM EDT documented in this encounter Results * PB ANESTHESIA NON-TIMED PROCEDURE PLACEHOLDER, PB POINT OF CARE IMAGING PLACEHOLDER (03/29/2025 1:58 PM EDT) Narrative Ian Lou CRNA, DNP - 03/29/2025 1:58 PM EDT Ian Lou CRNA, DNP 03/29/2025 2:50 PM Arterial Line: Date/Time: 03/29/2025 1:58 PM An arterial line was placed. Procedure performed using ultrasound guidance in the OR for the following indication(s): continuous blood pressure monitoring and blood sampling needed. Ultrasound was used to visualize vascular needle entry into the brachial artery AND ultrasound image was retained. A Catheter size: 18 gauge. (size), Arterial line catheter length: 4.5 inches. (length), Arrow (type) catheter was placed into the Right brachial artery and secured by tape and tegaderm and steri strips. Seldinger technique used Events: patient tolerated procedure well with no complications. Staffing Performed: THUY RESIDENTIAL SALES EXECUTIVE: Ian Lou CRNA, DNP Henry Harris MD ANESTHESIA ORDERABLES Final Res ult * Peripheral IV (03/29/2025 1:50 PM EDT) Narrative Ian Lou CRNA, DNP - 03/29/2025 1:50 PM EDT Ian oLu CRNA, DNP 03/29/2025 2:42 PM Peripheral IV Date/Time: 03/29/2025 1:50 PM Inserted by: Henry Harris MD Placement Needle size: 16 G Location: wrist Site prep: alcohol Attempts: 1 Henry Harris MD ANESTHESIA ORDERABLES Final Res ult * Peripheral IV (03/29/2025 1:45 PM EDT) Narrative Ian Lou CRNA, DNP - 03/29/2025 1:45 PM EDT Ian Lou CRNA, DNP 03/29/2025 2:42 PM Peripheral IV Date/Time: 03/29/2025 1:45 PM Inserted by: Henry Harris MD Placement Needle size: 16 G Location: hand Local anesthetic: none Site prep: alcohol Attempts: 1 Result [facility] Henry Harris MD ANESTHESIA ORDERABLES Final Res ult * MS AN ELECTIVE ENDOTRACHEAL AIRWAY, PB ANESTHESIA PLACEHOLDER (03/29/2025 1:37 PM EDT) Narrative Ian Lou CRNA, DNP - 03/29/2025 1:37 PM EDT Ian Lou CRNA, DNP 03/29/2025 2:41 PM Airway Date/Time: 03/29/2025 1:37 PM Reason: elective Airway not difficult General Information and Staff Patient location during procedure: OR RESIDENTIAL SALES EXECUTIVE: Ian Lou CRNA, DNP Performed: THUY Patient Condition Indications for airway management: anesthesia Patient position: sniffing Final Airway Details Final airway type: endotracheal airway Successful airway: ETT Cuffed: yes Successful intubation technique: direct laryngoscopy Adjuncts used in placement: intubating stylet Endotracheal tube insertion site: oral Blade: Hooker Blade size: #2 ETT size (mm): 7.5 Cormack-Lehane Classification: grade I - full view of glottis Placement verified by: chest auscultation and capnometry Measured from: lips ETT to lips (cm): 22 Additional Comments Atraumatic. No change to dentition. Result [facility] Henry Harris MD ANESTHESIA ORDERABLES Final Res ult documented in this encounter Visit Diagnoses Not on filedocumented in this encounter Administered Medications Inactive Administered Medications - up to 3 most recent administrations Medication Order MAR Action Action Date Dose Rate Site ceFAZolin (Ancef) injection Intravenous, As needed, Starting on Sat03/29/25 at 1402, Until Sat03/29/25 at 1834, Routine, Anesthesia Intraprocedure Given 03/29/2025 5:56 PM EDT 2 g Given 03/29/2025 2:02 PM EDT 2 g dexamethasone (Decadron) injection Intravenous, As needed, Starting on Sat03/29/25 at 1728, Until Sat03/29/25 at 1834, Routine, Anesthesia Intraprocedure Given 03/29/2025 5:28 PM EDT 4 mg electrolyte (Isolyte-S or Plasmalyte-A) IV solution Intravenous, Continuous PRN, Starting on Sat03/29/25 at 1545, Until Sat03/29/25 at 1834, Routine New Bag 03/29/2025 3:45 PM EDT ePHEDrine Sulfate (Akovaz) injection Intravenous, As needed, Starting on Sat03/29/25 at 1344, Until Sat03/29/25 at 1834, Routine, Anesthesia Intraprocedure Given 03/29/2025 6:18 PM EDT 10 mg Given 03/29/2025 3:26 PM EDT 5 mg Given 03/29/2025 3:24 PM EDT 5 mg fentaNYL (Sublimaze) injection Intravenous, As needed, Starting on Sat03/29/25 at 1335, Until Sat03/29/25 at 1834, Routine, Anesthesia Intraprocedure Given 03/29/2025 1:35 PM EDT 100 mcg heparin (porcine) injection Intravenous, As needed, Starting on Sat03/29/25 at 1549, Until Sat03/29/25 at 1834, Routine, Anesthesia Intraprocedure Given 03/29/2025 5:13 PM EDT 3,000 Units Given 03/29/2025 4:30 PM EDT 4,000 Units Given 03/29/2025 3:55 PM EDT 2,000 Units heparin 25,000 units/250 mL (100 units/mL) infusion Intravenous, Continuous PRN, Starting on Sat03/29/25 at 1736, Until Sat03/29/25 at 1834, Routine New Bag 03/29/2025 5:36 PM EDT 500 Units/hr 5 mL/hr HYDROmorphone PF (Dilaudid) injection Intravenous, As needed, Starting on Sat03/29/25 at 1757, Until Sat03/29/25 at 1834, Routine, Anesthesia Intraprocedure Given 03/29/2025 6:13 PM EDT 0.5 mg Given 03/29/2025 5:57 PM EDT 0.5 mg lactated Ringer's infusion 100 mL/hr, Intravenous, Once, 1 dose, On Sat03/29/25 at 1230, Routine Restarted 03/29/2025 6:20 PM EDT Rate/Dose Change 03/29/2025 3:43 PM EDT 75 mL/h r Rate/Dose Change 03/29/2025 3:22 PM EDT 125 mL/ hr Lidocaine HCl prefilled syringe Intravenous, As needed, Starting on Sat03/29/25 at 1335, Anesthesia Intraprocedure Given 03/29/2025 1:35 PM EDT 60 mg phenylephrine 25 mg in NS 250 mL (0.1 mg/mL) infusion (compounding pharmacy premix) Intravenous, Continuous PRN, Starting on Sat03/29/25 at 1542, Until Sat03/29/25 at 1834, Routine, Anesthesia Intraprocedure Rate/Dose Change 03/29/2025 5:54 PM EDT 0.1 mcg/kg/min 4.848 mL/hr Rate/Dose Change 03/29/2025 5:33 PM EDT 0.3 mcg/kg/min 14. 544 mL/hr New Bag 03/29/2025 3:42 PM EDT 0.5 mcg/kg/min 24.24 mL/ hr phenylephrine in NS (Facundo-Synephrine) 100 mcg/mL prefilled syringe Intravenous, As needed, Starting on Sat03/29/25 at 1437, Until Sat03/29/25 at 1834, Routine, Anesthesia Intraprocedure Given 03/29/2025 6:18 PM EDT 300 mcg Given 03/29/2025 6:16 PM EDT 200 mcg Given 03/29/2025 6:03 PM EDT 300 mcg propofol (Diprivan) injection Intravenous, As needed, Starting on Sat03/29/25 at 1335, Until Sat03/29/25 at 1834, Routine, Anesthesia Intraprocedure Given 03/29/2025 6:15 PM EDT 40 mg Given 03/29/2025 6:11 PM EDT 40 mg Given 03/29/2025 5:56 PM EDT 20 mg protamine injection Intravenous, As needed, Starting on Sat03/29/25 at 1728, Until Sat03/29/25 at 1834, Routine, Anesthesia Intraprocedure Given 03/29/2025 5:28 PM EDT 50 mg rocuronium (ZeMuron) injection Intravenous, As needed, Starting on Sat03/29/25 at 1335, Until Sat03/29/25 at 1834, Routine, Anesthesia Intraprocedure Given 03/29/2025 5:09 PM EDT 20 mg Given 03/29/2025 1:35 PM EDT 100 mg sodium chloride 0.9 % infusion Intravenous, Continuous PRN, Starting on Sat03/29/25 at 1404, Until Sat03/29/25 at 1834, Routine New Bag 03/29/2025 2:04 PM EDT sodium chloride 0.9 % infusion Intravenous, Continuous PRN, Starting on Sat03/29/25 at 1542, Until Sat03/29/25 at 1834, Routine New Bag 03/29/2025 3:42 PM EDT 50 mL/hr sugammadex (Bridion) 100 MG/ML injection Intravenous, As needed, Starting on Sat03/29/25 at 1808, Until Sat03/29/25 at 1834, Routine, Anesthesia Intraprocedure Given 03/29/2025 6:08 PM EDT 200 mg documented in this encounter Additional Health Concerns Active Problems Noted Date Diagnosed Date Autogenerated Problem 03/17/2025 Assessment Noted Time A fall risk assessment has been complete d for the patient 03/17/2025 10:48 AM EDT A Body Mass Index follow-up plan has been documented for the patient 04/02/2025 12:12 PM EDT documented as of this encounter Care Teams Quirk Sander Relationship Specialty Start Date End Date Josee Preciado APRN [address] [place] [address] PCP - General 03/15/25 documented as of this encounter
--- OUTSIDE RECORDS SUMMARY | 2025-04-16 13:00 | XMS_ITS | Encounter Summary ---
Author Organization Healthcare Address [address] [place] [address] Care Team Providers Care Stamping Bench Die Maker Name Role Phone Ozzy Josee Powell APRN Primary Care Provider +1- [phone] Encounter Details Date Type Department Care Team (Latest Contact Info) Description 04/16/2025 2:00 PM EDT [facility] [place] [facility] [address] 5th Floor Wing [address], [address] [place] [address] Kana Maddox MD [address] [facility] [address] [place] [address] Wound dehiscence (Primary Dx); Peripheral arterial disease Social History Tobacco Use Types Packs/Day Years [...] any time in the past 12 m [facility], were you homeless or living in a senior care (including now)? No 03/26/2025 [facility] Utilities Answer Date Recorded In the past 12 months has e [employer], gas, oil, or water [employer] threatened to shut off services in your home? No 03/26/2025 Sex and Gender Information Value Date Recorded Sex Assigned at Not on file Legal Sex Male 7:34 PM EDT Gender Identity Not on file Sexual Orientation Not on file documented as of this encounter Last Filed Vital Signs Vital Sign Reading Time Taken Comments Blood Pressure 143/71 04/16/2025 2:28 PM EDT Pulse 54 04/16/2025 2:28 PM EDT Temperature 36.3 C (97.3 F) 04/16/2025 2:28 PM EDT Respiratory Rate - - Oxygen Saturation 94% 04/16/2025 2:28 PM EDT Inhaled Oxygen Concentration - - Weight 80.8 kg (178 lb 2.1 oz) 04/16/2025 2:28 P M EDT Height 185.4 cm (6' 1 ) 04/16/2025 2:28 PM EDT Body Mass Index 23.5 04/16/2025 2:28 PM EDT documented in this encounter Miscellaneous Notes * Patient Instructions - Nicko Tao RN - 04/16/2025 2:00 PM EDT [facility] Physician Orders/Patient Instructions Should you notice a significant change in your wound(s) (such as increased drainage, foul odor, or pain) or have questions or problems following these instructions, please contact us at or call your primary care physician or the hospital emergency rooms. Wound Care/Dressing: Wound location Right groin Apply: Betadine Cover With: Fluff Gauze Dressing Changes: Daily Dr. Maddox has recommended using a condom catheter to keep the site clean and dry. * Progress Notes - Kana Maddox MD - 04/16/2025 2:00 PM EDT Images from the original note were not included. Dear Josee Preciado, PRODUCTION OPERATOR, HPI Mr. Baumann is s/p recent left femoral endarterectomy and femoral to posterior tibial bypass with PTFE. His facility noticed superficial dehiscence of his left groin wound. They have been strugglingto keep the area dry due to incontinence. From a vascular standpoint, his symptoms are much improved. He is progressing with rehab and able to walk on it. 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 Probed to 0.5 centimeters of depth. Assessment/Plan In Summary: Nicko Baumann is a 84 y.o. year old male who is s/p left lower extremity bypass with superficial wound dehiscence. There is no concern for infection at this time. Fibrinous material was debrided sharply and steri strips applied across the incision. Wound care instructions: - paint daily with betadine - maintain steri strips until they fall off on their own - recommend condom catheter for one week to help keep the incision dry We will see him back in 2 weeks for a wound check, at which time we will perform his postoperative vascular lab studies. Below is a summary of the diagnoses addressed in today's visit and any associated orders: Problem List Items Addressed This Visit Circulatory Peripheral arterial disease Other Visit Diagnoses Wound dehiscence - Primary We will see him back for: Follow up in about 2 weeks (around 04/30/2025). documented in this encounter Plan of Treatment Upcoming Encounters Date Type Department Care Team (Late st Contact Info) Description 11/03/2025 12:00 PM EDT Appointment [facility] [address], [address] [place] [address] 11/03/2025 1:00 PM EDT Appointment [facility] [address], [address] [place] [address] 11/03/2025 2:20 PM EDT Office Visit [facility] [address], [address] [place] [address] Kana Maddox MD [address] [place] [address] documented as of this encounter Goals Goal Patient Goal Type Associated Problems Recent Progress Patient-Stated? Author Autogenera trevor Goal Care Plan Autogenerated Problem No Koki Pruitt DO documented as of this encounter Visit Diagnoses Diagnosis Wound dehiscence- Primary Disruption of external operation (surgical) wound Peripheral arterial disease Unspecified peripheral vascular disease documented in this encounter Additional Health Concerns Active Problems Noted Date Diagnosed Date Autogenerated Problem 03/17/2025 Assessment Noted Time A fall risk assessment has been complete d for the patient 04/16/2025 2:28 PM EDT A Body Mass Index follow-up plan has been documented for the patient 04/16/2025 2:52 PM EDT documented as of this encounter Care Teams Stamping Bench Die Maker Relationship Specialty Start Date End Date Josee Preciado APRN [address] [place] [address] PCP - General 03/15/25 documented as of this encounter
--- OUTSIDE RECORDS SUMMARY | 2025-05-05 12:42 | XMS_ITS | Encounter Summary ---
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) Limb ischemia Peripheral arterial disease Procedures VAS Ankle Brachial Index - Segmental Kana Maddox MD [address] [address] Phone: tel: fax: Referral ID Status Reason Start Date Expiration Date V isits Requested Visits Authorized [id number] Closed Perform Procedure 04/02/2025 10/02/2026 1 1 Reason for Visit * Imaging (Routine) - Closed Specialty Diagnoses / Procedures Referred By Contac t Referred To Contact Cardiology Diagnoses Ischemic ulcer, 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) Limb ischemia Peripheral arterial disease Procedures VAS Ankle Brachial Index - Segmental Kana Maddox MD [address] [facility] [address] [place] [address] Phone: tel: fax: Referral ID Status Reason Start Date Expiration Date V isits Requested Visits Authorized [id number] Closed Perform Procedure 04/02/2025 10/02/2026 1 1 Encounter Details Date Type Department Care Team (Latest Contact Info) Description 05/05/2025 12:42 PM EST - 05/05/2025 11:59 PM EST Hospital Encounter [facility] [address] [place] [address] Ischemic ulcer, 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 No 03/26/2025 [facility] Utilities Answer Date Recorded In the past 12 months has th e [employer], gas, oil, or water company threatened to shut off services in your home? No 03/26/2025 Sex and Gender Information Value Date Recorded Sex Assigned at Not on file Legal Sex Male 7:34 PM EDT Gender Identity Not on file Sexual Orientation Not on file documented as of this encounter Medications at [...] day. 08/12/2023 documented as of this encounter Plan of Treatment Upcoming Encounters Date Type Department Care Team (Late st Contact Info) Description 11/03/2025 12:00 PM EDT Appointment [facility] [address] [place] [address] 11/03/2025 1:00 PM EDT Appointment [facility] [address] [place] [address] [address], [address] [place] [address] 11/03/2025 2:20 PM EDT Office Visit [facility] [address] [place] [address] [address], [address] [place] [address] Kana Maddox MD [facility] [address] [place] [address] documented as of this encounter Goals Goal Patient Goal Type Associated Problems Recent Progress Patient-Stated? 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 [...] are demonstrated at the level of the VEGETABLE WASHING MACHINE OPERATOR (imaged on same day arterial duplex). Monophasic waveforms are demonstrated at the levels of the ARABIC TRANSLATOR and DPA. Vessels are non-compressible at the ankle, consistent with medial calcinosis. Toe pressure of 71 mmHg is obtained. Left: Unable to obtain VEGETABLE WASHING MACHINE OPERATOR waveform due to incision site. Monophasic waveforms are demonstrated at the DPA and ARABIC TRANSLATOR. Segmental pressures are within normal limits with a ARABIC TRANSLATOR MEGAN of 0.99 (151 mmHg) and a [...] are demonstrated at the level of the VEGETABLE WASHING MACHINE OPERATOR(imaged on same day arterial duplex). Monophasic waveforms aredemonstrated at the levels of the ARABIC TRANSLATOR and DPA. Vessels arenon-compressible at the ankle, consistent with medial calcinosis. Toepressure of 71 mmHg is obtained. Left: Unable to obtain VEGETABLE WASHING MACHINE OPERATOR waveform due to incision site. Monophasicwaveforms are demonstrated at the DPA and ARABIC TRANSLATOR. Segmental pressures arewithin normal limits with a ARABIC TRANSLATOR MEGAN of 0.99 (151 mmHg) and a DPA MEGAN of0.94 (144 mmHg). Digit pressures are 72 mmHg. IMPRESSION: Right: The ARABIC TRANSLATOR and DPA are non-compressible at the ankle. 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) Limb ischemia Peripheral arterial disease Unspecified peripheral vascular disease documented in this encounter Additional Health Concerns Active Problems Noted Date Diagnosed Date Autogenerated Problem 03/17/2025 Assessment Noted Time A fall risk assessment has been complete d for the patient 05/05/2025 3:07 PM EST A Body Mass Index follow-up plan has been documented for the patient 05/07/2025 1:23 PM EST documented as of this encounter Care Teams Ice Cream Mixer Relationship Specialty Start Date End Date Josee Preciado APRN [address] [place] [address] PCP - General 03/15/25 documented as of this encounter
--- OUTSIDE RECORDS SUMMARY | 2025-05-05 12:42 | XMS_ITS | Encounter Summary ---
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) Limb ischemia Peripheral arterial disease Procedures VAS US Arterial Duplex Lower Extremity Unilateral Left Kana Maddox MD [address] [address] Phone: tel: fax: Referral ID Status Reason Start Date Expiration Date V isits Requested Visits Authorized [id number] Closed Perform Procedure 04/02/2025 10/02/2026 1 1 Reason for Visit * Imaging (Routine) - Closed Specialty Diagnoses / Procedures Referred By Raza tsai Referred To Contact Cardiology Diagnoses Ischemic ulcer, 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) Limb ischemia Peripheral arterial disease Procedures VAS US Arterial Duplex Lower Extremity Unilateral Left Kana Maddox MD [id number] [place] [address] Phone: tel: fax: Referral ID Status Reason Start Date Expiration Date V isits Requested Visits Authorized [id number] Closed Perform Procedure 04/02/2025 10/02/2026 1 1 Encounter Details Date Type Department Care Team (Latest Contact Info) Description 05/05/2025 12:42 PM EST - 05/05/2025 11:59 PM EST Hospital Encounter [facility] [address] [place] [address] Ischemic ulcer, limited to breakdown of skin [...] [facility] in the [facility] were [facility] or living in a correction (including now)? No 03/26/2025 [facility] Utilities Answer Date Recorded In the past 12 months has th e [employer], gas, oil, or water company threatened to [...] day. 09/05/2023 cholecalciferol (Vitamin D-3) 50 MCG (1999 UT) capsule Take 1 capsule by mouth [...] Info) Description 11/03/2025 12:00 PM EDT Appointment [facility] [address] [place] [address], [address] [place] [address] 11/03/2025 1:00 PM EDT Appointment [facility] [address] [place] [address], [address] [place] [address] 11/03/2025 2:20 PM EDT Office Visit [facility] [address] [place] [address] [address] [place] [address] Kana Maddox MD [address] [place], [place] [id number] [place] [address] documented as of this encounter Goals Goal Patient Goal Type Associated Problems Recent Progress Patient-Stated? 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 Unable to visualize the DANCE COSTUME DESIGNER, PFA and proximal BPG anastomosis. Arterial duplex demonstrates monophasic waveforms throughout the entirety of the BPG and at the [place] BEAUTY SHOP MANAGER and DPA. The following flow velocities are recorded: Common femoral artery: not visualized. Profunda femoral artery: not visualized. DANCE COSTUME DESIGNER to BEAUTY SHOP MANAGER PTFE BPG: Proximal thigh: 72 cm/s Mid [...] suture and patientmovement. Unable to visualize the DANCE COSTUME DESIGNER, PFA and proximal BPG anastomosis. Arterial duplex demonstrates monophasic waveforms throughout the entiretyof the BPG and at the [place] BEAUTY SHOP MANAGER and DPA. The following flow velocitiesare recorded: Common femoral artery: not visualized. Profunda femoral artery: not visualized. DANCE COSTUME DESIGNER to BEAUTY SHOP MANAGER PTFE BPG: Proximal thigh: 72 cm/s Mid [...] documented as of this encounter Care Teams Mud Trucker Relationship Specialty Start Date End Date Josee Preciado APRN [address] [place] [address] PCP - General 03/15/25 documented as of this encounter
--- OUTSIDE RECORDS SUMMARY | 2025-05-05 14:20 | XMS_ITS | Encounter Summary ---
Author Organization [facility] Address [address] [place] [address] Care Team Providers Care Workplace Trainer And Assessor Name Role Phone Josee Preciado APRN Primary Care Provider [phone] Reason for Referral * Imaging (Routine) - Pending Review Specialty Diagnoses / Procedures Referred By Contac t Referred To Contact Cardiology Diagnoses Peripheral vascular disease (CMS/HCC) Status post femorotibial bypass Procedures VAS US Arterial Duplex Lower Extremity Bilateral Kana Maddox MD [address] [address] Phone: tel: fax: Referral ID Status Reason Start Date Expiration Date Visits Requested Visits Authorized [id number] Pending Review Perform Procedure 05/05/2025 11/04/2026 1 1 * Imaging (Routine) - Pending Review Specialty Diagnoses / Procedures Referred By Contac t Referred To Contact Cardiology Diagnoses Peripheral vascular disease (CMS/HCC) Status post femorotibial bypass Procedures VAS Ankle Brachial Index - Segmental Kana Maddox MD [address] [facility] [place] [address] Phone: tel: fax: Referral ID Status Reason Start Date Expiration Date Visits Requested Visits Authorized [id number] Pending Review Perform Procedure 05/05/2025 11/04/2026 1 1 Reason for Visit * Reason Comments Open Wound Encounter Details Date Type Department Care Team (Latest Contact Info) Description 05/05/2025 2:20 PM EST Office Visit [facility] [address] [place] [address] Kana Maddox MD [address] [facility] [address] [place] [address] Peripheral vascular disease (CMS/HCC) (Primary Dx); Status post femorotibial bypass Social History Tobacco Use Types Packs/Day Years [...] money to buy more. Never true 03/26/20 Within the past 12 months, t he [...] any time in the past 12 m [facility], were you homeless or living in a [facility] (including now)? No 03/26/2025 [facility] Utilities Answer Date Recorded In the [...] Sign Reading Time Taken Comments Blood Pressure 154/71 05/05/2025 3:02 PM EST Pulse 93 05/05/2025 3:02 PM EST Temperature 36.4 C (97.6 F) 05/05/2025 3:02 PM EST Respiratory Rate - - Oxygen Saturation 98% 05/05/2025 3:02 PM EST Inhaled Oxygen Concentration - - Weight 80.8 kg (178 lb 2.1 oz) 05/05/2025 3:02 P M EST Height 185.4 cm (6' 1 ) 05/05/2025 3:02 PM EST Body Mass Index 23.5 05/05/2025 3:02 PM EST documented in this encounter Miscellaneous Notes * Progress Notes - Koki Pruitt DO - 05/05/2025 2:20 PM EST Dear Josee Preciado, AWAKE OVERNIGHT MONITOR, HPI Patient is an 84-year-old male who presents for follow up. Patient has known history of peripheral arterial disease and CLTI of his left lower extremity. He underwent left femoral to PT bypass with PTFE and vein cuff on 03/[address] Maddox. He has been recovering well. He has had difficulty healing his left groin incision and presented to have some breakdown on his last postoperative visit. Today, they report his incision continues to heal well and there was only a small portion that remains open. There was no evidence of infection. There was no drainage. He denies any symptoms in his left leg. He has some persistent swelling in his left lower extremity. He denies any symptoms in his right leg and no wounds on his right foot. The wounds on his left foot have essentially healed. Vascular Surgery History: (Date - Procedure - Hospital - Doctor) 03/29/2025 - [facility] - Dr. Maddox Left lower extremity angiography with interpretation Left common femoral thromboendarterectomy with vein patch Left profunda femoral thromboendarterectomy with vein patch Left common femoral to posterior tibial artery bypass with PTFE and vein cuff of distal anastomosis I personally and independently reviewed and interpreted the Vascular Lab Images from today's visit which showed: ABIs improved on the left. 0.9 from 0.49. They are however decreased on the right. 0.5as compared to 0.9 previously. Arterial duplex demonstrates the bypass is patent with no evidence of stenosis at the anastomosis. 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 Respiratory: Negative for chest tightness, shortness of breath and wheezing. Cardiovascular: Negative for chest pain and palpitations. Gastrointestinal: Negative for abdominal pain. Genitourinary: Positive for frequency. Negative for hematuria. Skin: Positive for wound (left groin). Negative for color change, pallor and rash. Neurological: Negative for dizziness, weakness and light-headedness. Objective Physical Exam Constitutional: well developed, well nourished, and in no acute distress Ears, Nose, Throat: normal atraumatic, no neck masses Respiratory: Normal expansion. Breathing on room air. No wheezing, no respiratory distress. Cardiac: Regular rate and rhythm Musculoskeletal: normal strength, tone, and muscle mass, no deformities Skin: [place], warm, well perfused, left groin incision with some mild erythema and irritation howeverno drainage, no concern for infection, healed wounds on left foot, no wounds on right foot Vasc: palpable femoral arteries bilaterally, bilateral PT signals present Assessment/Plan In Summary: Nicko Baumann is a 84 y.o. year old male who we saw today in clinic. He is doing quite well following his bypass on the left. ABIs significantly improved and duplex demonstrates patent bypass. I discussed the test interpretations and management with associated orders of the following medical conditions of: Problem List Items Addressed This Visit None Visit Diagnoses Peripheral vascular disease ([facility]) - Primary Relevant Orders VAS Ankle Brachial Index - Segmental VAS US Arterial Duplex Lower Extremity Bilateral Status post femorotibial bypass Relevant Orders VAS Ankle Brachial Index - Segmental VAS US Arterial Duplex Lower Extremity Bilateral We will see him back for: Follow up in 6 months (on 11/02/2025). The patient was counseled on the importance of: - strict diabetic glucose control - plavix therapy for stroke prevention - statin therapy for control of hyperlipidemia and plaque stabilization - blood pressure monitoring - proper nutrition, exercise and maintaining a healthy weight. Cosigned by Kana Maddox MD at 05/07/2025 1:22 PM EST Associated attestation - Kana Maddox MD - 05/07/2025 1:22 PM EST I saw and evaluated the patient with the resident/fellow. I discussed the case with the resident/fellow and agree with the findings and plan as documented. Very pleased with progress. Groin wound healing slowly but on track. 6 month f/u for vascular lab studies. documented in this encounter Plan of Treatment Upcoming Encounters Date Type Department Care Team (Late st Contact Info) Description 11/03/2025 12:00 PM EDT Appointment [facility] [address] [place] [address] 11/03/2025 1:00 PM EDT Appointment [facility] [address] [place] [address] 11/03/2025 2:20 PM EDT Office Visit [facility] [address] [place] [address] Kana Maddox MD [address] [facility] [address] [place] [address] Scheduled Orders Name Type Priority Associated Diagnoses Orde r Schedule VAS Ankle Brachial Index - Segmental Vascular Ultrasound Routine Peripheral vascular disease ([facility]/HCC) Status post femorotibial bypass Expected: 11/02/2025, Expires: 11/06/2026 VAS US Arterial Duplex Lower Extremity Bilateral Vascular Ultrasound Routine Peripheral vascular disease (CMS/HCC) Status post femorotibial bypass Expected: 11/02/2025, Expires: 11/06/2026 documented as of this encounter Goals Goal Patient Goal Type Associated Problems Recent Progress Patient-Stated? Author Autogenera trevor Goal Care Plan Autogenerated Problem No Koki Pruitt DO documented as of this encounter Visit Diagnoses Diagnosis Peripheral vascular disease (CMS/HCC)- Primary Unspecified peripheral vascular disease Status post femorotibial bypass documented in this encounter Additional Health Concerns Active Problems Noted Date Diagnosed Date Autogenerated Problem 03/17/2025 Assessment Noted Time A fall risk assessment has been complete d for the patient 05/05/2025 3:07 PM EST A Body Mass Index follow-up plan has been documented for the patient 05/07/2025 1:23 PM EST documented as of this encounter Care Teams Workplace Trainer And Assessor Relationship Specialty Start Date End Date Josee Preciado APRN [address] [place] [address] PCP - General 03/15/25 documented as of this encounter
[2025-05-25] VITALS (8 sets, daily range): BP systolic 116–182; BP diastolic 71–104; PULSE 64–80; RESP 16–19; TEMP 36.7–37.2; O2SAT 92–100; BMI 22.4; BMI 26.7
--- NOTE | 2025-05-25 12:39 | ED_ITS ---
<Statement entered by La Child MD - 05/29/25 08:55> I was consulted by the OZZIE, and we discussed the complexity of the problems being addressed. I approved the treatment and management plan for this patient's care in the emergency department, thus performing a substantive portion of the medical decision making. La Child MD, FABRICIO, FACEP Discharge Plan Disposition Patient Disposition: Admitted Condition: Good Clinical Impressions Clinical Impression: Altered mental status, UTI (urinary tract infection) Discharge ED Provider: La Child General Adult HPI General Chief complaint: Weakness Stated complaint: critical neutrophils/wbc per [place]/ lethargy Time Seen by Provider: 05/25/25 12:36 Mode of Arrival: EMS Source of Information: Patient, Spouse and Medical Record Limitations: Altered Mental Status History of Present Illness HPI narrative: 84-year-old male presents to the emergency department via EMS for concerns of neutropenia/leukopenia, as well as generalized weakness/ lethargy , as well as altered mental status for the last 3 days. at the bedside provides most of the history as patient is GCS 14 and is very uncooperative with exam, will respond to some questions, will not answer me about place time or person, obeys commands, localizes pain and opens eyes spontaneously, states this has been worsening for the last 3 days, patient was complaining of some neck pain , according to at the bedside, thus review of systems deferred. Other past medical history upon chart review patient is status post femoral-tibial bypass in March that was formed in [facility] by vascular surgeon for PAD, history of leukopenia, history of memory disturbance, hyperlipidemia, degenerative disc disease of the spine, spinal stenosis, hypertension, history of metastatic prostate cancer, osteoporosis, patient anticoagulation therapy with Eliquis. Initial triage vitals are unremarkable also of note, patient's at the bedside states that the patient was battling urinary tract infection per group home staff last week finished a round of oral antibiotics last week. Please note that above description of symptoms, in this electronic medical record under categorization of recalled from ER triage doctor by RN are reflective of an initial nursing assessment, however, is not reflective of my full history and physical exam that was personally taken and clarified. Consequentially, this preceding description of symptoms, which may include the patient's categorized chief complaint in the EMR, do not reflect my personal clinical impression, and the ultimate description of history of present illness and patient stated complaints should be deferred to this section of the note. Unless stated otherwise or congruent with this section of the note, additional signs, symptoms, or incongruence should be interpreted as inaccurate with my clinical impression. Onset (ago): day(s) Related Data Home Medications ?Medication ?Instructions ?Recorded ?Confirmed cyanocobalamin (vitamin B-12) 1,000 mcg PO DAILY Suppl ement 04/15/23 05/20/25 1,000 mcg tablet pregabalin 100 mg capsule 100 mg PO BID Pain 04/15/23 05/20/25 acetaminophen 500 mg capsule 500 mg PO Q6H PRN Pain 05/20/25 polyethylene glycol 3350 17 17 g PO DAILY 10/11/23 gram/dose oral powder psyllium husk 3.4 gram/5.4 gram 1 tbsp PO DAILY 05/20/25 oral powder (Metamucil) calcium citrate 200 mg PO DAILY 06/03/24 cholecalciferol (vitamin D3) 50 50 mcg PO DAILY 05/20/25 mcg (2,000 unit) capsule leuprolide acetate (6 month) 45 mg 45 mg SQ [id number] 1 08/04/23 05/20/25 (6 month) subcutaneous syringe (GoMore) apixaban 5 mg tablet (Eliquis) 5 mg PO BID 05/13/25 clopidogrel 75 mg tablet 75 mg PO DAILY 05/13/2505/02 melatonin 3 mg tablet 3 mg PO HS PRN 05/13/2505/02 Previous Rx's ?Medication ?Instructions ?Recorded urea 40 % topical cream 1 applic topical BID 30 days #28 02/05/24 grams triamcinolone acetonide 0.5 % 1 applic topical BID #15 grams 09/17/24 topical cream ammonium lactate 5 % lotion 1 applic topical TID PRN d ry skin 09/21/24 (Lac-Hydrin Five) 14 days #226 grams aspirin 81 mg tablet,delayed See Rx Instructions .Rout e 10/12/24 release .COMPLEX #90 tabs oxybutynin chloride 10 mg See Rx Instructions .Route 0 10/12/24 tablet,extended release 24 hr .COMPLEX #90 tabs denosumab 60 mg/mL subcutaneous 60 mg SQ [id number] #1 m L 02/19/25 syringe (Prolia) bisoprolol fumarate 5 mg tablet See Rx Instructions .R oute 04/09/25 .COMPLEX #120 tabs ferrous sulfate 325 mg (65 mg See Rx Instructions .Rou te 04/09/25 iron) tablet (FeroSul) .COMPLEX #120 tabs Allergies Allergy/AdvReac Type Severity Reaction Status Date / Time No Known Allergies Allergy Verified 05/20/25 13:43 [facility] Disclaimer: The information contained in this section may have been updated after the patient was seen, as this information can be updated by other users. Medical History Non-healing ulcer of foot, limited to breakdown of skin Abnormal ankle brachial index (MEGAN) HLD (hyperlipidemia) HTN (hypertension) Lumbar compression fracture Bradycardia, sinus Melena Near syncope Medicare annual wellness visit, subsequent Paresthesias Idiopathic neuropathy Swelling of lower extremity Peripheral arterial disease Onychodystrophy Neuropathy Acute hypokalemia Lumbar disc disease Left carotid bruit Carotid artery stenosis Family history of heart disease ERIC (obstructive sleep apnea) Prostate cancer Dizziness Ex-smoker CAD (coronary artery disease) Surgical History History of back surgery History of right-sided carotid endarterectomy Hx of CABG Family History No significant family history Social History Smoking Status: Former smoker alcohol intake: current alcohol intake frequency: holidays/special occasions only substance use type: denies use current occupational status: employed and retired Travel in the last 8 weeks?: None household members: spouse housing: house caffeine: No Have you lived/traveled outside US in past 30 days?: No Contact w/someone who lives/traveled outside US past 30 days?: No Exposure to someone with infectious disease in past 14 days?: No Do you have a fever (greater than 100.4 F or 38 C)?: No Have you tested positive for COVID-19?: No Exposed to someone with COVID-19 in past 14 days?: No Do you have a sore throat?: No Do you have a cough?: No Do you have any weakness?: No Do you have any diarrhea?: No Are you experiencing any unusual bleeding?: No Do you have any muscle aches/pain?: No Do you have any abdominal pain?: No Are you experiencing loss of taste or smell?: No Other Medical History Have you received the Flu Vaccine for this season: No Have you received the Pneumonia Vaccine: No ROS Obtained: Yes All systems reviewed & no additional complaints except as documented Physical Exam General General appearance: alert and in no apparent distress Comment: Pale ill-appearing male Head Head exam: atraumatic and normocephalic Eye Eye exam: Present PERRL and EOMI ENT ENT exam: Present mucous membranes moist Neck Neck exam: Present normal inspection Chest Chest inspection: Present normal inspection and symmetric chest wall rise Respiratory Respiratory exam: Present normal lung sounds bilaterally; Absent respiratory distress, wheezes or stridor Cardiovascular Cardiovascular exam: Present regular rate and normal rhythm Abdominal Exam Abdominal exam: Present soft; Absent tenderness, guarding, rebound or rigidity Extremities Exam Extremities exam: Present normal inspection Neurological Exam Neurological exam: Present alert and other (GCS of 14 obeys commands localizes pain answer some questions, but somewhat uncooperative with exam, generalized weakness noted throughout, but does move extremities 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 Screening: Per USPSTF and CDC recommendations, given the prevalence of disease in our region, it is our hospital?s policy to screen for HIV and viral Hepatitis for all patients aged 18 and over and those with ongoing risk factors. [place] Inquiry Pt receiving controlled substance: No Har[place] was queried for this patient: No Vital Signs: 05/25/25 12:35 05/25/25 13:01 Temperature 98.9 F Temperature Source Oral Pulse Rate 77 Pulse Rate [Right Radial] 68 Respiratory Rate 18 16 Blood Pressure 139/83 Blood Pressure [Right Arm] 153/73 H Blood Pressure Mean [Right Arm] 99 Blood Pressure Source [Right Arm] Automatic Cuff Blood Pressure Position [Right Arm] Supine 02 Sat by Pulse Oximetry 100 94 L Oxygen Delivery Method Room Air Room Air Lab Data Lab results reviewed: Yes I reviewed the patient's lab results. Lab Results 05/25/25 12:40: WBC 2.6 L, RBC 4.79, Hgb 12.8 L, Hct 40.9 L, MCV 85.4, MCH 26.7 L, MCHC 31.3 L, RDW 13.6, Plt Count 199, MPV 9.9, Neut % (Auto) 3.1 L, Lymph % (Auto) 59.7 H, [place] % (Auto) 34.1 H, Eos % (Auto) 2.3, Baso % (Auto) 0.8, Neut # (Auto) 0.1 L*, Lymph # (Auto) 1.5, [place] # (Auto) 0.9, Eos # (Auto) 0.1, Baso # (Auto) 0.0, Total Counted 100, Neutrophils % (Manual) 6 L, Lymphocytes % (Manual) 75 H, Monocytes % (Manual) 17 H, Eosinophils % (Manual) 1, Basophils % (Manual) 1.0, Platelet Estimate Normal, RBC Morphology Normal, PT 13.4 H, INR 1.23 H, Sodium 141, Potassium 4.0, Chloride 102, Carbon Dioxide 28, Anion Gap 15.0, BUN 16, Creatinine 1.00, Estimated Creat Clear 62, Estimated GFR 71, Est GFR ( Amer) 86, Glucose 137 H, Calcium 8.5, Magnesium 2.2, Total Bilirubin 0.5, AST 48, ALT 29, Alkaline Phosphatase 73, Troponin I < 0.01, N T-Pro-B Natriuret Pep 903 H, Total Protein 7.1, Albumin 3.6, Globulin 3.5 H, A lbumin/Globulin Ratio 1.0 L, HCV Ab ARIA w/Rflx PCR Qn Negative, HIV Ag/Ab Combo Qual Negative 05/25/25 13:03: Ammonia < 9 L 05/25/25 13:11: Chlamy pneumoniae PCR Not detected, Adenovirus (PCR) Not detected, B. pertussis DNA (PCR) Not detected, Coronavirus OC43 (PCR) Not detected, Coronavirus HKU1 (PCR) Not detected, Coronavirus 229E (PCR) Not detected, SARS-CoV-2 (PCR) Not detected, Coronavirus NL63 (PCR) Not detected, Human Metapneumovir PCR Not detected, Influenza A (H1) PCR Not detected, Influ A (H1N1/09) PCR Not detected, Influenza A (H3) PCR Not detected, Influenza Type A (PCR) Not detected, Influenza Type B (PCR) Not detected, M. pneumoniae (PCR) Not detected, Parainfluenza 1 (PCR) Not detected, Parainfluenza 2 (PCR) Not detected, Parainfluenza 3 (PCR) Not detected, Parainfluenza 4 (PCR) Not detected, RSV (PCR) Not detected, Entero/Rhino (PCR) Not detected 05/25/25 13:16: Urine Color Yellow, Urine Appearance Clear, Urine pH 6.0, Ur Specific [place] 1.025, Urine Protein 2+ A, Urine Glucose (UA) Negative, Urine Ketones Trace, Urine Blood 2+ A, Urine Nitrate Positive A, Urine Bilirubin Negative, Urine Urobilinogen 0.2, Ur Leukocyte Esterase 2+ A, Urine RBC 5-10, Urine WBC 5-10, Ur Squamous Epith Cells 3-5, Urine Bacteria 1+, Urine Opiates Screen Negative, Urine Methadone Screen Negative, Ur Barbituates Screen Negative, Ur Phencyclidine Scrn Negative, Ur Amphetamines Screen Negative, U Benzodiazepines Scrn Negative, Urine Cocaine Screen Negative, U Marijuana (THC) Screen Negative 05/25/25 12:40 05/25/25 12:40 Orders (Tests/Meds): ED MEDICATIONS Generic Name Dose Route Start Last Admin Trade Name Freq PRN Reason Stop Dose Admin Acetaminophen 650 mg 05/25/25 15:40 Acetaminophen 325mg Tab PO 06/24/25 15:39 Q4HP PRN Fever or Mild Pain (1-3) Cefepime HCl 2 gm/ Sodium 100 mls @ 200 mls/hr 05/26/25 02:30 Chloride IV 06/05/25 02:29 Q12H RENU Discontinued Medications Generic Name Dose Route Start Last Admin Trade Name Freq PRN Reason Stop Dose Admin Cefepime HCl 2 gm/ Sodium 100 mls @ 200 mls/hr 05/25/25 13:40 05/25/25 14:58 Chloride IV 05/25/25 14:09 Infused ONCE ONE Infusion Iopamidol 160 ml 05/25/25 13:35 05/25/25 13:36 Iopamidol-370 (76%);100ml Bottle IV 05/25/25 13:36 160 ml ONCE ONE Administration Sodium Chloride 10 ml 05/25/25 13:35 05/25/25 13:36 Sodium Chloride 0.9% 10ml Syr (Rad Only) IV 05/25/25 13:36 10 ml ONCE ONE Administration Sodium Chloride 100 ml 05/25/25 13:35 05/25/25 13:36 0.9 % Sodium Chloride 50 Ml Vial IV 05/25/25 13:36 100 ml ONCE ONE Administration ORDERS Category Date Time Status CT angio abdomen pelvis Stat Cat Scan 05/25/25 12:[address] angio chest PE protocol Stat Cat Scan 05/25/25 12:[address] angio head Stat Cat Scan 05/25/25 12:[address] angio neck Stat Cat Scan 05/25/25 12:[address] cervical spine wo con Stat Cat Scan 05/25/25 12:[address] head/brain wo con Stat Cat Scan 05/25/25 12:48 Completed XR chest portable Stat Exams 05/25/25 12:58 Completed Ammonia Stat Lab 05/25/25 13:03 Completed Complete Blood Count Auto Diff AMLAB Lab 05/26/25 06:00 Ordered Complete Blood Count Auto Diff Stat Lab 05/25/25 12:40 Completed Comprehensive Metabolic Panel AMLAB Lab 05/26/25 06:00 Ordered Comprehensive Metabolic Panel Stat Lab 05/25/25 12:40 Completed Drug Screen,Urine Stat Lab 05/25/25 13:16 Completed Full Resp Panel w/COVID ([facility]) Routine Lab 05/25/25 13:11 Completed HIV Combo Stat Lab 05/25/25 12:40 Completed Hepatitis C Ab Qual. W/ RFX Stat Lab 05/25/25 12:40 Completed Magnesium AMLAB Lab 05/26/25 06:00 Ordered Magnesium Stat Lab 05/25/25 12:40 Completed NT Pro Brain Natriuretic Pep. Stat Lab 05/25/25 12:40 Completed PT INR [Prothrombin Time INR] Stat Lab 05/25/25 12:40 Completed Troponin I Q3H Lab 05/25/25 16:00 Ordered Troponin I Q3H Lab 05/25/25 19:00 Ordered Troponin I Stat Lab 05/25/25 12:40 Completed UA [Urinalysis and Microscopic] Stat Lab 05/25/25 13:16 Completed Blood Culture Stat Micro 05/25/25 13:09 Ordered Urine Culture Stat Micro 05/25/25 13:16 Received Medical Decision Narrative: 84-year-old male presents emergency department with concern for neutropenia/leukopenia failure to thrive generalized weakness and altered mental status for the last 3 days, differential diagnose include but not limited to failure to thrive, acute kidney injury, cardiac arrhythmia, electrolyte disturbance, metabolic encephalopathy, uremic encephalopathy, malignancy, metastatic disease, toxic cephalopathy, acute SDH, acute UTI, colitis, ileitis, pneumonia, among others I discussed this patient's case with the attending physician Dr. Child Will obtain basic laboratory studies, EKG, CT head without contrast, CT cervical spine without contrast, CTA head and neck with and without contrast, CT angios of the chest, abdomen and pelvis, magnesium level, proBNP troponin, coags, UA, ammonia level. Leukopenia at 2.6, with neutropenia at 0.1 thus we will initiate neutropenic precautions, and obtain chest x-ray, blood cultures and full respiratory panel. Coagulation studies noted for PT time that is elevated at 13.4, INR is elevated 1.23 CMP is unremarkable Troponin initially is within normal limits at less than 0.01, proBNP is elevated at 903. Patient has nitrite positive on urinalysis, will give 2 g IV cefepime. 2+ proteinuria, 2+ hematuria, 2+ leukocyte esterase. Ammonia within normal limits UDS negative, 5-10 RBCs, 5-10 WBCs, 3-5 squamous epithelial cells 1+ bacteria. I reviewed the patient's CT head without contrast along the corresponding radiologic report, no acute intracranial abnormality, atrophy and changes suggesting chronic small vessel ischemia. I reviewed the patient's CTA head and neck with without contrast along the corresponding radiologic report, prominent atherosclerotic disease of the distal left vertebral artery there is several areas of short segment high-grade stenosis the right vertebral artery is patent otherwise unremarkable CTA of the intracranial vessels. There is mild plaque in the right carotid bulb producing less than 50% luminal diameter stenosis there is calcified plaque in the left carotid artery and left carotid bulb with approximately 60% proximal left ICA stenosis. I reviewed the patient's CTA chest with and without contrast along the corresponding radiologic report, no evidence of pulmonary embolism or dissection, cardiomegaly with interlobular septal thickening in the bases and mild ground glass opacity most likely representing pulmonary edema age- indeterminate thoracic compression fracture described above. I reviewed the patient's CT cervical spine without contrast along the corresponding radiologic report, no acute osseous abnormality of the cervical spine. I reviewed the patient's chest x-ray along the corresponding radiologic report, left basilar opacity likely atelectasis. I reviewed the patient's CTA abdomen pelvis with and without contrast on the corresponding radiologic report, no evidence of abdominal aortic aneurysm or dissection no change in mesenteric and renal artery stenosis no change in iliac artery atherosclerotic disease possible chronic cystitis. Respiratory swabs are negative I discussed this patient's case with the hospitalist provider Irma Romo APRN at approximately 3:19 PM, she is in agreement with the admission plan will discuss this with attending physician hospitalist Dr. Monroe, and will call me back for confirmation. I discussed this patient's case with hospitalist physician Dr. Monroe at approximately 3:38 PM, he is in agreement with the current admission plan/treatment plan. I discussed need for admission with the patient Christine at the bedside, patient resting comfortably in bed, discussed with next of kin/POA at the bedside is in agreement with the current admission plan/treatment plan. Critical Care Critical Care Time Critical Care Time: No
--- OUTSIDE RECORDS SUMMARY | 2025-05-25 12:41 | XMS_ITS | Encounter Summary ---
Author Organization Healthcare Address [address] [place] [address] Care Team Providers Care Medical Doctor Nuclear Medicine Name Role Phone Josee Preciado APRN Primary Care Provider [phone]- [phone] Encounter Details Date Type Department Care Team (Late st Contact Info) Description 04/09/2025 Telephone Vascular Surgery [address] [place] [address] Cornell Putnam AUDIT SPECIALIST None Social History Tobacco Use Types Packs/Day Years [...] any time in the past 12 m [facility], were you homeless or living in a jail (including now)? No 03/26/2025 [facility] Utilities Answer Date Recorded In the past [...] as of this encounter Miscellaneous Notes * Nursing Note - Cornell Putnam RN - 04/09/2025 12:36 PM EDT Spoke to the patient???s spouse during discharge phone call and she said he was doing well and not having any issues. We reviewed his vascular follow up appointments and she verbalized understanding.No questions or concerns at this time. documented in this encounter Plan of Treatment Upcoming Encounters Date Type Department Care Team (Late st Contact Info) Description 11/03/2025 12:00 PM EDT Appointment [facility] [address] [facility] [address] [place] [address] 11/03/2025 1:00 PM EDT Appointment [facility] [address] [facility] [address] [place] [address] 11/03/2025 2:20 PM EDT Office Visit [facility] [address] [place] [address] Kana Maddox MD [address] [place] [address] documented as of this encounter Goals Goal Patient Goal Type Associated Problems Recent Progress Patient-Stated? Author Autogenera trevor Goal Care Plan Autogenerated Problem No Koki Pruitt DO documented as of this encounter Visit Diagnoses Not on filedocumented in this encounter Additional Health Concerns Active Problems Noted Date Diagnosed Date Autogenerated Problem 03/17/2025 Assessment Noted Time A fall risk assessment has been complete d for the patient 03/17/2025 10:48 AM EDT A Body Mass Index follow-up plan has been documented for the patient 04/02/2025 12:12 PM EDT documented as of this encounter Care Teams Medical Doctor Nuclear Medicine Relationship Specialty Start Date End Date Josee Preciado APRN [address] [place] [address] PCP - General 03/15/25 documented as of this encounter
--- OUTSIDE RECORDS SUMMARY | 2025-05-25 12:42 | XMS_ITS | Encounter Summary ---
Author Organization Healthcare Address [address] [place] [address] Care Team Providers Care Nurse Leader Name Role Phone Josee Preciado APRN Primary Care Provider [phone]- [phone] Encounter Details Date Type Department Care Team (Late st Contact Info) Description 04/20/2025 Telephone [facility] [address] [place] [address] Kana Maddox MD [address] [facility] [address] [place] [address] Social History Tobacco Use Types [...] any time in the past 12 m [facility], were you homeless or living in a custodial (including now)? No 03/26/2025 [facility] Utilities Answer Date Recorded In the [...] encounter Miscellaneous Notes * Telephone Encounter - Mariah Molina Frantz - 04/20/2025 12:25 PM EDT LVM- notified patient of appts that have been moved to 05/05 with vascular ultrasounds in [facility]. Florencia @ Appt w/ Tan @ 220 Reminders mailed Left [facility] number- [phone] documented in this encounter Plan of Treatment Upcoming Encounters Date Type Department Care Team (Late st Contact Info) Description 11/03/2025 12:00 PM EDT Appointment [facility] [address] [place] [address] 11/03/2025 1:00 PM EDT Appointment [facility] [address] [place] [address] 11/03/2025 2:20 PM EDT Office Visit [facility] [address] [place] [address] Kana Maddox MD [address] [facility] [address] [place] [address] documented as of this encounter [...] documented as of this encounter Care Teams Nurse Leader Relationship Specialty Start Date End Date Josee Preciado APRN [address] [place] [address] PCP - General 03/15/25 documented as of this encounter
--- OUTSIDE RECORDS SUMMARY | 2025-05-25 12:42 | XMS_ITS | Encounter Summary ---
Author Organization Healthcare Address [address] [place] [address] Care Team Providers Care Manager Architecture Name Role Phone Pancho Singh MD Primary Care Provider [phone] Josee Preciado APRN Primary Care Provider [phone]- [phone] Encounter Details Date Type Department Care Team (Late st Contact Info) Description 08/17/2024 Orders Only External Location [address] [place] [address] Provider, External Social History Tobacco Use Types [...] in a prison (including now)? No 09/04/2023 Utilities Answer Date [...] Info) Description 11/03/2025 12:00 PM EDT Appointment [facility] [address] [place] [address] 11/03/2025 1:00 PM EDT Appointment [facility] [address] [place] [address] 11/03/2025 2:20 PM EDT Office Visit [facility] [address] [place] [address] Kana Maddox MD [address] [facility] [address] [place] [address] documented as of this encounter Procedures Procedure Name Priority Date/Time Associated Diagnosis Comments US OUTSIDE IMAGES 08/17/2024 10:44 AM EST documented in this encounter Results * US OUTSIDE IMAGES (08/17/2024 10:44 AM EST) Anatomical Region Laterality Modality Ultrasound 08/17/2024 10:4 4 AM EST us External Provider IMG US PROCEDURES Edited Resul t - Final documented in this encounter Visit Diagnoses Not on filedocumented in this encounter Additional Health Concerns Assessment Noted Time A fall risk assessment has been complete d for the patient 10/16/2023 1:52 PM EDT A Body Mass Index follow-up plan has been documented for the patient 10/26/2023 11:34 AM EDT documented as of this encounter Care Teams Manager Architecture Relationship Specialty Start Date End Date Pancho Singh MD [address] [place] [address] PCP - General 11/11/20 03/14/25 Josee Preciado APRN [address] [place] [address] PCP - General 03/15/25 documented as of this encounter
--- OUTSIDE RECORDS SUMMARY | 2025-05-25 12:42 | XMS_ITS | Encounter Summary ---
Author Organization Healthcare Address [address] [place] [address] Care Team Providers Care Custodian Athletic Equipment Name Role Phone Ozzy Josee Powell APRN Primary Care Provider +1- [phone] Encounter Details Date Type Department Care Team (Latest Contact Info) Description 05/05/2025 Travel Social History Tobacco Use Types Packs/Day [...] were you homeless or living in a care home (including now)? No 03/26/2025 [facility] Utilities Answer Date Recorded In the [...] Info) Description 11/03/2025 12:00 PM EDT Appointment [facility] [address] [place] [address] 11/03/2025 1:00 PM EDT Appointment [facility] [address] [place] [address] 11/03/2025 2:20 PM EDT Office Visit [facility] [address] [place] [address] Kana Maddox MD [address] [place] [address] documented as of this encounter Goals Goal [...] documented as of this encounter Care Teams Custodian Athletic Equipment Relationship Specialty Start Date End Date Josee Preciado APRN [address] [place] [address] PCP - General 03/15/25 documented as of this encounter
--- OUTSIDE RECORDS SUMMARY | 2025-05-25 12:42 | XMS_ITS | Encounter Summary ---
Author Organization Healthcare Address [address] [place] [address] Care Team Providers Care Public Defender Name Role Phone Josee Preciado APRN Primary Care Provider +1- [phone] Reason for Visit * Reason Onset Date Comments HCN - Patient Message 05/06/2025 Wound orde rs Encounter Details Date Type Department Care Team (Late st Contact Info) Description 05/06/2025 Telephone [facility] [address] [facility] 5th Floor Wing D, [address] [place] [address] Kana Maddox MD [address] [facility] [address] [place] [address] HCN - Patient Message (Wound orders) Social History Tobacco Use Types Packs/Day Years [...] in the past 12 m [facility], were you homeless or living in a senior care (including now)? No 03/26/2025 [facility] Utilities Answer Date Recorded In the past 12 months has th e [employer], gas, oil, or water company threatened to shut off services in your home? No 03/26/2025 Sex and Gender Information Value Date Recorded Sex Assigned at Not on file Legal Sex Male 7:34 PM EDT Gender Identity Not on file Sexual Orientation Not on file documented as of this encounter Miscellaneous Notes * Telephone Encounter - Linda Araujo - 05/06/2025 3:32 PM EST Patient Phone Message Reason for Call: Alireza velez requesting a return call regarding pt's steri strips being taken off yesterday at appt and making sure there are no new orders they need to be aware of. Best contact number and optimal time of day to reach caller: [phone] Sade Note: Please do not reply to this [...] Info) Description 11/03/2025 12:00 PM EDT Appointment [facility] [address] [place] [address] 11/03/2025 1:00 PM EDT Appointment [facility] [address] [place] [address] 11/03/2025 2:20 PM EDT Office Visit [facility] [address] [place] [address] Kana Maddox MD [address] [facility] [address] [place] [address] documented as of this encounter Goals Goal [...] as of this encounter Care Teams Public Defender Relationship Specialty Start Date End Date Josee Preciado APRN [address] [place] [address] PCP - General 03/15/25 documented as of this encounter
--- OUTSIDE RECORDS SUMMARY | 2025-05-25 12:42 | XMS_ITS | Encounter Summary ---
Author Organization Healthcare Address [address] [place] [address] Care Team Providers Care Mobile Lounge Driver Name Role Phone Ozzy Josee Powell APRN Primary Care Provider +1- [phone] Encounter Details Date Type Department Care Team (Latest Contact Info) Description 03/29/2025 Travel Social History Tobacco Use Types Packs/Day [...] any time in the past 12 m [facility], were you homeless or living in a residential (including now)? No 03/26/2025 [facility] Utilities Answer Date Recorded In the [...] Author No Risk Indicated 03/29/2025 8:00 AM Ashley Petersen RN * Question Answer Date of Assessment Author 1. Wish to be (Past 1 Month) No 025 8:00 AM Ashley Petersen RN 2. Non-Specific Active Suici peyton Thoughts (Past 1 Month) No 03/29/2025 8:00 AM Ashley Petersen RN 6. Suicidal Behavior (Lifetime) No 8:00 AM Ashley Petersen RN documented as of this encounter Plan of Treatment Upcoming Encounters Date Type Department Care Team (Late st Contact Info) Description 11/03/2025 12:00 PM EDT Appointment [facility] [address] [facility] 5th Floor [address] [place] [address] 11/03/2025 1:00 PM EDT Appointment [facility] [address] [facility] 5th Floor [address] [place] [address] 11/03/2025 2:20 PM EDT Office Visit [facility] [address] [place] [address] Kana Maddox MD [address] [facility] [address] [place] [address] documented as of this encounter [...] documented as of this encounter Care Teams Mobile Lounge Driver Relationship Specialty Start Date End Date Josee Preciado APRN [address] [place] [address] PCP - General 03/15/25 documented as of this encounter
--- OUTSIDE RECORDS SUMMARY | 2025-05-25 12:42 | XMS_ITS | Encounter Summary ---
Author Organization Healthcare Address [address] [place] [address] Care Team Providers Care Concessions Manager Name Role Phone Pancho Singh MD Primary Care Provider [phone] Josee Preciado APRN Primary Care Provider [phone]- [phone] Encounter Details Date Type Department Care Team (Late st Contact Info) Description 02/25/2025 Orders Only External Location [address] [place] [address] Provider, External Social History Tobacco Use Types [...] in a jail (including now)? No 09/04/2023 AUDIT-C Answer Date [...] Info) Description 11/03/2025 12:00 PM EDT Appointment [facility] [address] [facility] 5th Floor [address] [place] [address] 11/03/2025 1:00 PM EDT Appointment [facility] [address] [facility] 5th Floor [address] [place] [address] 11/03/2025 2:20 PM EDT Office Visit [facility] [address] 5th Floor [address] [place] [address] Kana Maddox MD [address] [place] [address] documented as of this encounter Procedures Procedure Name Priority Date/Time Associated Diagnosis Comments CT OUTSIDE IMAGES 02/25/2025 12:13 PM EDT documented in this encounter Results * CT OUTSIDE IMAGES (02/25/2025 12:13 PM EDT) Anatomical Region Laterality Modality Computed Tomogra phy 02/25/2025 12:1 3 PM EDT us External Provider IMG CT PROCEDURES Edited Resul t - Final documented in this encounter Visit Diagnoses Not on filedocumented in this encounter Additional Health Concerns Assessment Noted Time A fall risk assessment has been complete d for the patient 02/10/2025 12:49 PM EDT A Body Mass Index follow-up plan has been documented for the patient 02/23/2025 6:50 AM EDT documented as of this encounter Care Teams Concessions Manager Relationship Specialty Start Date End Date Pancho Singh MD [address] [place] [address] PCP - General 11/11/20 03/14/25 Josee Preciado APRN [address] [place] [address] PCP - General 03/15/25 documented as of this encounter
--- OUTSIDE RECORDS SUMMARY | 2025-05-25 12:42 | XMS_ITS | Encounter Summary ---
Author Organization Healthcare Address [address] [place] [address] Care Team Providers Care Rn Coronary Care Unit Name Role Phone Pancho Singh MD Primary Care Provider Josee Preciado APRN Primary Care Provider +1- [phone] Encounter Details Date Type Department Care Team (Late st Contact Info) Description 09/08/2024 Orders Only External Location [address] [place] [address] Provider, External Social History Tobacco Use Types [...] place to sleep or slept in a long term (including now)? No 09/04/2023 Utilities Answer Date [...] Info) Description 11/03/2025 12:00 PM EDT Appointment [facility] [address] [place] [address] 11/03/2025 1:00 PM EDT Appointment [facility] [address] [place] [address] 11/03/2025 2:20 PM EDT Office Visit [facility] [address] [place] [address] Kana Maddox MD [address] [facility] [address] [place] [address] documented as of this encounter Procedures Procedure Name Priority Date/Time Associated Diagnosis Comments IR OUTSIDE IMAGES 09/08/2024 7:16 AM EDT documented in this encounter Results * IR OUTSIDE IMAGES (09/08/2024 7:16 AM EDT) Anatomical Region Laterality Modality X-Ray Angiograph y 09/08/2024 7:16 AM EDT us External Provider IMG IR PROCEDURES Edited Resul t - Final documented in this encounter Visit Diagnoses Not on filedocumented in this encounter Additional Health Concerns Assessment Noted Time A fall risk assessment has been complete d for the patient 10/16/2023 1:52 PM EDT A Body Mass Index follow-up plan has been documented for the patient 10/26/2023 11:34 AM EDT documented as of this encounter Care Teams Rn Coronary Care Unit Relationship Specialty Start Date End Date Pancho Singh MD [address] [place] [address] PCP - General 11/11/20 03/14/25 Josee Preciado APRN [address] [place] [address] PCP - General 03/15/25 documented as of this encounter
--- OUTSIDE RECORDS SUMMARY | 2025-05-25 12:42 | XMS_ITS | Encounter Summary ---
Author Organization Healthcare Address [address] [place] [address] Care Team Providers Care Licensed Embalmer Supervisor Name Role Phone Josee Preciado APRN Primary Care Provider [phone]- [phone] Encounter Details Date Type Department Care Team (Late st Contact Info) Description 04/12/2025 Telephone [facility] [address] 5th Floor [address], [address] [place] [address] Kana Maddox MD [address] [facility] [address] [place] [address] Social History Tobacco Use Types [...] any time in the past 12 m [facility], were you homeless or living in a penitentiary (including now)? No 03/26/2025 [facility] Utilities Answer Date Recorded In [...] encounter Miscellaneous Notes * Telephone Encounter - Erika Huffman RN - 04/14/2025 2:06 PM EDT Appointment made per MD discretion. * Telephone Encounter - Erika Huffman RN - 04/14/2025 11:04 AM EDT Per [facility], patient's incision has started to dehisce. Aruna states there is no redness, warmth, pain, odor, fevers/chills. She says it does have some slough in the wound with yellow drainage. They are currently leaving it open to air. She states other than this he has not been having any issues. RN instructed to do wet-dry dressing for now. MD notified. * Telephone Encounter - Linda Araujo - 04/13/2025 2:07 PM EDT Patient Phone Message Reason for Call: Kesha requesting a return call to discuss pt's wound as stated below please Best contact number and optimal time of day to reach caller: [phone] Note: Please do not reply to this message. Follow-up communication and further actions as a result of this message need to be communicated with the patient directly, if the patient is not active onMyChart. If the patient is active on MyChart, they will receive notification of the communication/outcome via Cree. * Telephone Encounter - Jacqueline Roger - 04/12/2025 4:16 PM EDT Clinical Concern/Question Reason for Call: Kesha calling from [facility] would like to relay that the incisionsite is moist, de hissing, they placed steri strips, has some slough through incision line in the middle. She says when she was feeling, at the top it has some firmness around each side of it. Best contact number: Other: [phone] Optimal time of day to reach caller: [...] Info) Description 11/03/2025 12:[address] [facility] [address] [place] [address] 11/03/2025 1:[address] [facility] [address] [place] [address] 11/03/2025 2:20 PM EDT Office Visit [facility] [address] [place] [address] Kana Maddox MD [address] [place] [address] documented as of this encounter Goals Goal [...] documented as of this encounter Care Teams Licensed Embalmer Supervisor Relationship Specialty Start Date End Date Josee Preciado APRN [address] [place] [address] PCP - General 03/15/25 documented as of this encounter
--- OUTSIDE RECORDS SUMMARY | 2025-05-25 12:42 | XMS_ITS | Encounter Summary ---
Author Organization Healthcare Address [address] [place] [address] Care Team Providers Care Mechanism Assembler Name Role Phone Ozzy Josee Powell APRN Primary Care Provider +1- [phone] Encounter Details Date Type Department Care Team (Latest Contact Info) Description 03/26/2025 Travel Social History Tobacco Use Types Packs/Day [...] any time in the past 12 m [facility], were you homeless or living in a [facility] (including now)? No 03/26/2025 [facility] Utilities Answer Date Recorded In the [...] Date of Assessment Author No Risk Indicated 03/26/2025 8:00 PM EDKvng Louis RN * Question Answer Date of Assessment Author 1. Wish to be (Past 1 Month) No 025 8:00 PM Kvng Talley RN 2. Non-Specific Active Suici peyton Thoughts (Past 1 Month) No 03/26/2025 8:00 PM SUSHANTT Gerardo Penny RN 6. Suicidal Behavior (Lifetime) No 8:00 PM Kvng Talley RN documented as of this encounter Plan of Treatment Upcoming Encounters Date Type Department Care Team (Late st Contact Info) Description 11/03/2025 12:00 PM EDT Appointment [facility] [address] [facility] 5th Floor [address] [place] [address] 11/03/2025 1:00 PM EDT Appointment [facility] [address] [place] [address] 11/03/2025 2:20 PM EDT Office Visit [facility] [address] [place] [address] Kana Maddox MD [address] [facility] [address] [place] [address] documented as of this encounter [...] documented as of this encounter Care Teams Mechanism Assembler Relationship Specialty Start Date End Date Josee Preciado APRN [address] [place] [address] PCP - General 03/15/25 documented as of this encounter
--- OUTSIDE RECORDS SUMMARY | 2025-05-25 12:42 | XMS_ITS | Encounter Summary ---
Author Organization Healthcare Address [address] [place] [address] Care Team Providers Care Sales And Events Coordinator Name Role Phone Ozzy Josee Powell APRN Primary Care Provider +1- [phone] Encounter Details Date Type Department Care Team (Latest Contact Info) Description 04/16/2025 Travel Social History Tobacco Use Types Packs/Day [...] any time in the past 12 m [facility], were you homeless or living in a long-term (including now)? No 03/26/2025 [facility] Utilities Answer Date Recorded In [...] Info) Description 11/03/2025 12:00 PM EDT Appointment [facility] Lab [address] [place] [address] 11/03/2025 1:00 PM EDT Appointment [facility] [address] [place] [address] 11/03/2025 2:20 PM EDT Office Visit [facility] [address] [place] [address] Kana Maddox MD [address] [place] [address] documented as of this encounter Goals Goal [...] documented as of this encounter Care Teams Sales And Events Coordinator Relationship Specialty Start Date End Date Josee Preciado APRN [address] [place] [address] PCP - General 03/15/25 documented as of this encounter
--- OUTSIDE RECORDS SUMMARY | 2025-05-25 12:42 | XMS_ITS | Encounter Summary ---
Author Organization Healthcare Address [address] [place] [address] Care Team Providers Care Household Assistant Name Role Phone Josee Preciado APRN Primary Care Provider +1- [phone] Reason for Visit * Reason Onset Date Comments HCN Clinical Concern/Question 04/14/2025 Encounter Details Date Type Department Care Team (Late st Contact Info) Description 04/14/2025 Telephone [facility] [address] [facility] 5th Floor [address] [place] [address] Kana Maddox MD [address] [facility] [address] [place] [address] HCN Clinical Concern/Question Social History Tobacco Use Types Packs/Day Years [...] any time in the past 12 m [facility], were you homeless or living in a snf (including now)? No 03/26/2025 [facility] Utilities Answer Date Recorded In [...] encounter Miscellaneous Notes * Telephone Encounter - Irma Vidal Andre - 04/14/2025 4:09 PM EDT Clinical Concern/Question Reason for Call: Aruna from [facility] is calling back to see if the appt is going to be scheduledfor Saturday04/16/25 at 2:00. She spoke to the patients and she is fine with that day, Please call Aruna back with info. Thank you Best contact number: Other: [phone] Optimal time of day to reach caller: [...] Info) Description 11/03/2025 12:00 PM EDT Appointment [facility] Lab [address] [place] [address] 11/03/2025 1:00 PM EDT Appointment [facility] [address] [place] [address] 11/03/2025 2:20 PM EDT Office Visit [facility] [address] [place] [address] Kana Maddox MD [address] [facility] [address] [place] [address] documented as of this encounter Goals Goal [...] documented as of this encounter Care Teams Household Assistant Relationship Specialty Start Date End Date Josee Preciado APRN [address] [place] [address] PCP - General 03/15/25 documented as of this encounter
--- OUTSIDE RECORDS SUMMARY | 2025-05-25 12:43 | XMS_ITS | Referral Summary ---
Author Organization [employer] ([place], [place], [place], [place], [place]) Address [address] [place] [address] Care Team Providers Care Frit Mixer And Burner Name Role Phone OzzyJosee DAMIAN Primary Care Provider Allergies No known active allergies Medications megestroL (MEGACE) 20 MG tablet Take 20 mg by mouth. Active oxybutynin (DITROPAN) 5 MG tablet Take 5 mg by mouth daily. 07/02/2022 Active tamsulosin (FLOMAX) 0.4 mg Cap 24 hr capsule Take 0.4 mg by mouth daily. 04/23/2022 Active atenoloL (TENORMIN) 25 MG tablet atenolol Active bisoprolol (ZEBETA) 10 MG tablet Take 10 mg by mouth daily. 04/23/2022 Active chlorthalidone (HYGROTON) 50 MG tablet Take 50 mg by mouth daily. 04/09/2022 Active ergocalciferol (Vitamin D2) 1,250 mcg (50,000 unit) capsuleIndicati ons:Vitamin D deficiency Take 1 capsule PO weekly for 8 weeks, then once monthly and continue. 4 capsule 11 07/17/2022 Active cyanocobalamin (VITAMIN B-12) 1,000 mcg/mL injectionIndica tions:Vitamin B12 deficiency Inject 1ml IM weekly for 4 weeks, then monthly and continue.. 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/04/2022 Vitamin D deficiency 07/04/2022 Vitamin B12 deficiency 07/04/2022 Other fatigue 07/04/2022 Social History Tobacco Use Types Packs/Day Years Used Date Smoking Tobacco: Never Alcohol Use Standard Drinks/Week Comments Never 0 (1 standard drink = 0.6 oz pur e alcohol) Food Insecurity Answer Date Recorded Food run out past 12 months Not on file 07/01 Food did not last past 12 months Not on file 07/12/2023 Employment Answer Date Recorded Help finding and keeping a job Not on file 0 07/12/2023 Family and Community Support Answer Phillip e Recorded Help with Day to Day Activities Not on file 07/12/2023 Feeling Lonely or Isolated Not on file 07/12 Educational Attainment Answer Date Naldo rded Speak language other than [place] at home Not on file 07/12/2023 Want help with school or training Not on file 07/12/2023 Substance Use Answer Date Recorded Used prescription meds for non-medical reasons N ot on file 07/12/2023 Used illegal drugs past 12 months Not on file 07/12/2023 Sex and Gender Information Value Date Recorded Sex Assigned at Not on file Legal Sex Male 5:56 PM CDT Gender Identity Not on file Sexual Orientation Not on file Occupation Industry Job 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 Date Retired Not on file Not on file Not on file Last Filed Vital Signs Vital Sign Reading Time Taken Comments Blood Pressure 142/74 08/21/2022 2:26 PM EST Pulse 69 07/04/2022 3:33 PM EST Temperature - - Respiratory Rate - - Oxygen Saturation 95% 07/04/2022 3:33 PM EST Inhaled Oxygen Concentration - - Weight 79.8 kg (176 lb) 08/21/2022 2:26 PM EST Height 185.4 cm (6' 1 ) 08/21/2022 2:26 PM EST Body Mass Index 23.22 08/21/2022 2:26 PM EST Plan of Treatment Not on file Insurance [place] [id number] [employer] MED[employer] PPO Care Teams Frit Mixer And Burner Relationship Specialty Start Date End Date Josee Preciado, [place] FLIGHT TECHNICIAN [address] [address] PCP - General Nurse Practitioner 05/02/22
--- OUTSIDE RECORDS SUMMARY | 2025-05-25 12:43 | XMS_ITS | Data Portability ---
Author Organization [facility] - Cecil amezquita MD, Main Office Address [address] [place] [address], [address] [address] Care Team Providers Care Traffic Control Operator Name Role Phone KRISTIE TERRY Primary Care Provider Assessment No assessment recorded. Plan of Treatment Reminders Order Date Submit Date Provider Last Modified By Organization Details Last Modified Time Details Appointments None record ed. Lab None record ed. Referral None record ed. Procedures None record ed. Surgeries None record ed. Imaging None record ed. Medication Orders None record ed. Patient TargetsNo targets recorded. Patient Instructions Encounter Date Encounter Id Patient Instructions Last Modified By Organization Details Last Modified Time 05/09/2021 [id number] Neuropathic Pain : Care Instructions [email or web address] Not available 05/09/2021 14:16:55 Reason for Referral None Reported. Results Created Date Observation Date Name Description Value Unit Range Abnormal Flag Note LastModifiedBy Organization Detail LastModifiedTime 05/09/20 21 05/09/2021 elect romyo gram + nerve condu ction study No observ ation record ed. BARCODE Not Available 2020 13:12:40 Result Notes None recorded. Problems No Known Problems Procedures Surgical History Date Name Laterality Status Provider Name and Address Organization Details Recorded Time 05/09/2021 NCV/EMG completed Orlin Freeman MD 05/09/2021 13:02:03 Imaging Results None recorded. Procedure Notes None recorded. Medical Equipment None Reported. Allergies No known drug allergies Medications Name Sig Start Date Stop Date Status Note LastModified by Organization Details LastModified Time simvastatin 10 mg tablet active Not Available Not Available Not Available chlorthalidone 50 mg tablet active Not Available Not Available No t Available sulfamethoxazole 800 mg-trimethoprim 160 mg tablet active Not Available Not Availabl e Not Available leflunomide 20 mg tablet active Not Available Not Available Not Available bisoprolol fumarate 10 mg tablet active Not Available Not Available Not Available prednisolone acetate 1 % eye drops,suspension active Not Available Not Avail able Not Available tamsulosin 0.4 mg capsule active Not Available Not Available Not Available erythromycin 5 mg/gram (0.5 %) eye ointment active Not Available Not Available Not Available cyanocobalamin (vit B-12) 1,000 mcg/mL injection solution active Not Available Not Available Not Available neomycin-polymyxin -dexameth 3.5 mg/mL-10,000 unit/mL-0.1% eye drops active Not Available Not Available Not Available megestrol 40 mg tablet active Not Available Not Available Not Available BD Luer-Allen Syringe 3 mL 25 gauge x 1 active Not Available Not Available N ot Available oxybutynin chloride 5 mg tablet active Not Available Not Available Not Available Myrbetriq 50 mg tablet,extended release active Not Available Not Available Not Available Vitals None Recorded Social History None recorded. Functional Status None recorded. Mental Status None recorded. Family History Nothing Reported. Medical History No medical history recorded. 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 Health Concerns Section Related Observation LastModified by Organization Detai ls LastModified Time None Recorded Concern Status LastModified by Organization Details LastModified Time None Recorded Advance Directives Directive None Recorded Payers Insurance Date Sequence Insurance Name Policy Number Policy Barry Covered Member ID Barry Member ID Guarantor Name 05/09/2021 1 [employer] (MEDICARE REPLACEMENT/ ADVANTAGE - PPO) Nicko Baumann [id number] Nicko Baumann
--- OUTSIDE RECORDS SUMMARY | 2025-05-25 12:43 | XMS_ITS | Encounter Summary ---
Author Organization [facility] Address [address] [place] [address] Care Team Providers Care Finger Grip Machine Operator Name Role Phone PreciadoAnaashwin SALGADO Primary Care Provider [phone] Encounter Details Date Type Department Care Team (Late st Contact Info) Description 09/24/2024 Results Follow-Up [facility] RHEUMATOLOGY [address] [address] Rogelio Martin, [address] [place] [address] Social History Tobacco Use Types Packs/Day Years [...] as of this encounter Plan of Treatment Not on file documented as of this encounter Visit Diagnoses Not on filedocumented in this encounter Care Teams Finger Grip Machine Operator Relationship Specialty Start Date End Date Josee Preciado APRN [address] [place], [place] [id number] PCP - General Internal Medicine 08/07/23 documented as of this encounter
--- OUTSIDE RECORDS SUMMARY | 2025-05-25 12:43 | XMS_ITS | Clinical Summary ---
Author Organization [facility] Address [address] [place] [address] Care Team Providers Care Investment Officer Name Role Phone Josee Preciado APRN Primary Care Provider [phone] Allergies No known active allergies Medications aspirin [...] +, IgM RF+ 1. On 06/07/22 the plating foreman called and notified us that we needed [...] +, IgM RF+ 1. 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 on file Not on file [...] 09/23/2024 11:40 AM EDT Plan of Treatment Health Maintenance Due Date Last Done Comments TDAP/TD VACCINES (1 - Tdap) 1959 Pneumococcal Vaccine 50+ (1 of 1 - PCV) 1990 ZOSTER VACCINE (1 of 2) 1990 RSV Vaccine - Adults (1 - 1- dose 75+ series) 2015 ANNUAL WELLNESS VISIT 05/14/2019 INFLUENZA VACCINE 01/29/2025 04/30/2023, 03/21/2020 COVID-19 Vaccine (8 - Pfizer risk 2023- season) 2025 05/07/2024, 05/21/2023, 04/26/2022, Additional history exists HEMOGLOBIN A1C Discontinued 03/26/2025 Insurance [employer] MEDICARE ADVANTAGE PPO MEDICARE A & B [facility] Care Teams Investment Officer Relationship Specialty Start Date End Date Josee Preciado APRN [address] [phone] PCP - General Internal Medicine 08/07/23
--- OUTSIDE RECORDS SUMMARY | 2025-05-25 12:43 | XMS_ITS | Clinical Summary ---
Author Organization [email or web address] ([place], [place], [place], [place], [place]) Address [address] [place] [address] Care Team Providers Care Quality Assurance Supervisor Body Name Role Phone PreciadoJosee ETL PROGRAMMER Primary Care Provider Allergies No known active [...] Vitamin B12 deficiency 07/04/2022 Other fatigue 07/04/2022 Family History Medical History Relation Name Comments No Known Problem Father No Known Problem Mother Relation Name Status Comments Father Mother Social History Tobacco Use Types Packs/Day Years [...] Date Naldo rded Speak language other than [place] Citizen at home Not on file 07/12/2023 Want [...] 08/21/2022 2:26 PM EST Plan of Treatment Health Maintenance Due Date Last Done Comments Medicare Initial AWV [id number] Depression Screening (12+) 1952 Tobacco Cessation Counseling and Screening (12+) 1952 DTAP/TDAP/TD VACCINES (1 - Tdap) 1959 Pneumococcal 50+ years (1 of 1 - PCV) 1990 Shingles Vaccine (Zoster) (1 of 2) 1990 Respiratory Syncytial Virus (RSV) Adult or (1 - 1-dose 75+ series) 2015 Falls Risk Screening 07/01/2024 COVID-19 VACCINE (6 - 2024-2 6 season) 2025 04/26/2022, 12/29/2021, 04/14/2021, Additional history exists Influenza Vaccine (#1) 2025 Insurance [facility] MEDICARE PPO Care Teams Quality Assurance Supervisor Body Relationship Specialty Start Date End Date Josee Preciado, ETL PROGRAMMER [address] [place] [id number] PCP - General Nurse Practitioner 05/02/22
--- OUTSIDE RECORDS SUMMARY | 2025-05-25 12:43 | XMS_ITS | Encounter Summary ---
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 on file Not on file Not on file documented as of this encounter Miscellaneous Notes * Telephone Encounter - Yenny Briseno MA - 12/27/2023 2:27 PM EDT UPCOMING APPTS With Oncology (Yenny Siddiqi MD) 03/18/2024 at 10:30 AM LAST OFFICE VISIT - THIS DEPT 12/17/2023 Yenny Siddiqi MD Last refill 12/11/2022 30 11 refills documented in this encounter Plan of Treatment Not on file documented as of this encounter Visit Diagnoses Not on filedocumented in this encounter Care Teams Floor Layer Helper Relationship Specialty Start Date End Date Josee Preciado APRN [facility] [address] [address] PCP - General Internal Medicine 08/07/23 documented as of this encounter
--- OUTSIDE RECORDS SUMMARY | 2025-05-25 12:43 | XMS_ITS | Encounter Summary ---
Author Organization [facility] Address [address] [place] [address] Care Team Providers Care Metal Die Finisher Name Role Phone Pancho Singh MD Primary Care Provider [phone] Josee Preciado APRN Primary Care Provider [phone] Encounter Details Date Type Department Care Team (Late st Contact Info) Description 08/06/2023 Orders Only External Location [address] [place] [address] Josee Preciado, DAMIAN [address] [place] [address] Social History Tobacco Use Types Packs/Day Years [...] Info) Description 11/03/2025 12:00 PM EDT Appointment [facility] [address] [place] [address] 11/03/2025 1:00 PM EDT Appointment [facility] [address] [place] [address] 11/03/2025 2:20 PM EDT Office Visit [facility] [address] [place] [address] Kana Maddox MD [address] [place] [address] documented as of this encounter Procedures Procedure Name Priority Date/Time Associated Diagnosis Comments XR OUTSIDE IMAGES 08/06/2023 3:13 PM EST documented in this encounter Results * XR OUTSIDE IMAGES (08/06/2023 3:13 PM EST) Anatomical Region Laterality Modality Radiographic [place] ging 08/06/2023 3:13 PM EST Josee Preciado VP DIRECTOR OF FINANCE IMG XR PROCEDURES Edited R esult - Final documented in this encounter Visit Diagnoses Not on filedocumented in this encounter Care Teams Metal Die Finisher Relationship Specialty Start Date End Date Pancho iSngh MD [address] [place] [address] PCP - General 11/11/20 03/14/25 Josee Preciado APRN [address] [place] [address] PCP - General 03/15/25 documented as of this encounter
--- OUTSIDE RECORDS SUMMARY | 2025-05-25 12:43 | XMS_ITS | Clinical Summary ---
Author Organization [facility] Address [address] [place] [address] Care Team Providers Care Stage Technician Name Role Phone Josee Preciado APRN Primary Care Provider [phone] Allergies No known active allergies Medications bicalutamide (Casodex) 50 MG chemo tablet Take 1 tablet (50 mg total) by mouth every morning. 4 Active bisoprolol (Zebeta) 5 MG tablet Take 1 tablet by mouth every morning. 4 Active furosemide (Lasix) 20 MG tablet Take 1 tablet by mouth every morning. 4 Active predniSONE (Deltasone) 5 MG tablet Take 1 tablet by mouth every morning. 4 Active pregabalin (Lyrica) 100 MG capsule Take 1 capsule by mouth 2 times a day. 4 Active ferrous sulfate 325 (65 Fe) MG tablet Take 1 tablet by mouth daily with breakfast. 4 Active celecoxib (CeleBREX) 100 MG capsule Take 1 capsule (100 mg) by mouth 2 (two) times a day. 4 Active oxybutynin XL (Ditropan-XL) 10 MG 24 hr tablet Take 1 tablet by mouth every morning. Active leuprolide acetate, 6 Month, (Eligard) 45 MG injection Inject under the skin every 6 (six) months. Active cholecalciferol (Vitamin D-3) 50 MCG (1999 UT) capsule Take 1 capsule by mouth every morning. Active denosumab (Prolia) 60 MG/ML injection Inject 1 mL under the skin every 6 months. Active CALCIUM CITRATE PO Take 200 mg by mouth every morning. Active acetaminophen (Tylenol) 500 MG tablet Take 2 tablets by mouth every 8 hours as needed. Active apixaban (Eliquis) 5 MG tablet Take 1 tablet by mouth 2 times a day. Active cadexomer iodine (Iodosorb) 0.9 % gel Apply topically daily. Active Calcium Carbonate-Vitam in D (calcium-vitami n D) 500-200 MG-UNIT tablet Take 1 tablet by mouth daily. Active clopidogrel (Plavix) 75 MG tablet Take 1 tablet by mouth daily. Active docusate sodium 100 MG capsule Take 100 mg by mouth 2 times a day. Active melatonin tablet Take 2 tablets by mouth at night as needed for sleep. Active phosphorus (K Phos Neutral) tablet Take 1 tablet by mouth daily. Active cyanocobalamin (Vitamin B-12) 1000 MCG tablet Take 1 tablet by mouth 1 time each day with lunch. Active Active Problems Problem Noted Date Diagnosed Date Electrolyte imbalance 03/31/2025 History of prostate cancer [...] Encounters Date Type Department Care Team Description 05/06/2025 Telephone [facility] [address] [place] [address] Kana Maddox MD HCN - Patient Message (Wound orders) 05/05/2025 2:20 PM EST Office Visit [facility] [address], [address] [place] [phone] Kana Maddox MD Peripheral vascular disease (CMS/HCC) (Primary Dx); Status post femorotibial bypass 05/05/2025 12:42 PM EST - 05/05/2025 11:59 PM EST Hospital Encounter [facility] 800 [facility] Room [address] [address] Ischemic ulcer, 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); Limb ischemia; Peripheral arterial disease Discharge Disposition: Home or Self Care 05/05/2025 12:42 PM EST - 05/05/2025 11:59 PM EST Hospital Encounter [facility] [address] [phone] Ischemic ulcer, 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); Limb ischemia; Peripheral arterial disease Discharge Disposition: Home or Self Care 05/05/2025 Travel 04/20/2025 Telephone [facility] [address], [address] [address] Kana Maddox MD 04/16/2025 2:00 PM EDT Office Visit [facility] [address], [address] [address] Kana Maddox MD Wound dehiscence (Primary Dx); Peripheral arterial disease 04/16/2025 Travel 04/14/2025 Telephone [facility] [address], [address] [address] Kana Maddox MD HCN Clinical Concern/Question 04/12/2025 Telephone [facility] [address] [place] [address], [address] [address] Kana Maddox MD 04/09/2025 Telephone Vascular Surgery [address] [place] [phone] Cornell Putnam RN 03/29/2025 1:30 PM EDT Anesthesia Event [facility] [address] [place] [address] Henry Harris MD Rock, Holly R, PA 03/29/2025 11:30 AM EDT - 03/29/2025 2:50 PM EDT Surgery [facility] [address] [place] [address] Kana Maddox MD Left lower extremity femoral to distal arterial bypass, femoral endarterectomy 03/29/2025 Travel 03/26/2025 Travel 03/25/2025 12:38 PM EDT - 03/25/2025 4:18 PM EDT Surgery [facility] [address] [place] [address] Fabián Salgado MD Lower Extremity Angioplasty +/- Stent [52661 (CPT )] 03/25/2025 12:21 PM EDT Anesthesia Event [facility] [address] [place] [address] Wellington Tabares MD 03/25/2025 9:13 AM EDT - 04/02/2025 2:04 PM EDT Hospital Encounter [facility] Inpatient [address] [place] [address] Fabián Salgado MD Hughes, Travis G, MD Peripheral arterial disease (CMS/HCC) (Primary Dx); Postoperative hypotension; Ischemic ulcer, 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); Hypophosphatemia; Hypomagnesemia; History of prostate cancer; 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, unspecified vessel or lesion type; Electrolyte imbalance; Limb ischemia; Peripheral arterial disease (CMS/HCC) Discharge Disposition: [facility] 03/25/2025 Travel 03/17/2025 11:20 AM EDT Office Visit [facility] [address] [place] [address] Fabián Salgado MD Ischemic ulcer, 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); Peripheral arterial disease (CMS/HCC) 03/17/2025 Travel 03/15/2025 Telephone [facility] [address] 5th Floor [address] [place] [address] Fabián Salgado MD HCN Same Day Appt/Overbook Request 02/25/2025 Orders Only External Location [address] [place] [address] Provider, External 02/25/2025 Orders Only [facility] [address] [facility] [address] [place] [address] Vu Aldana APRN Claudication (CMS/HCC) (Primary Dx) from Last 3 Months Family History Medical [...] any time in the past [address] [facility], were you homeless or living in a [place] health [place] facility (including now)? No 03/26/2025 [facility] Utilities Answer Date Recorded In the [...] F) 05/05/2025 3:02 PM EST Respiratory Rate 18 04/02/2025 11:54 AM EDT Oxygen Saturation 98% 05/05/2025 3:02 PM EST Inhaled Oxygen Concentration - - Weight 80.8 kg (178 lb 2.1 oz) 05/05/2025 3:02 P M EST Height 185.4 cm (6' 1 ) 05/05/2025 3:02 PM EST Body Mass Index 23.5 05/05/2025 3:02 PM EST Plan of Treatment Upcoming Encounters Date Type Department Care Team (Late st Contact Info) Description 11/03/2025 12:00 PM EDT Appointment [facility] [address] [place] [address] 11/03/2025 1:00 PM EDT Appointment [facility] [address] [facility] 5th Floor Wing [address] [place] [address] 11/03/2025 2:20 PM EDT Office Visit [facility] [address] [facility] 5th Floor Wing [address] [place] [address] Kana Maddox MD [address] [facility] [address] [place] [address] Health Maintenance Due Date Last Done Comments [facility]-Depression Screening 1940 [facility]-Medicare Annual Wellness (AWV) 1940 [facility]-/Child/Adol SDOH Screenings 1940 [facility]-DTaP,Tdap,and Td Vaccines (1 - Tdap) 1959 [facility]-Zoster Vaccines (1 of 2) 1959 [facility]-Pneumococcal Vaccine: 50+ Years (1 of 1 - PCV) 1990 [facility]-RSV Vaccine: 60+ Years or (1 - 1-dose 75+ series) 2015 [id number] Vaccine ( - season) 2025 05/07/2024, 05/21/2023, 04/26/2022, Additional history exists [facility]-Influenza Vaccine (#1) 2025 04/30/2023, [facility]- SDOH Screenings 09/23/2025 [facility]-Adult SDOH Screenings 09/23/2025 03/26/2025 [facility]-Diabetes: Hemoglobin A1C 03/26/2026 03/26/2025 HPV Vaccines Aged Out No longer eligi [...] on patient's age to complete this topic Goals Goal Patient Goal Type Associated Problems Recent Progress Patient-Stated? Author Autogenera trevor Goal Care Plan Autogenerated Problem No Koki Pruitt, DO Medical Devices Implanted Type Area District Sales Leader Device Identifier Shelf Expiration Date Model / Serial / Lot Graft Propaten Ring W/Hep 6x80 - [id number] - [id number] Implanted:Qty: 1 on 03/29/2025 by Kana Maddox MD at [facility] Left: Arterial [id number] 11/06/2027 [id number] / [id number] / [id number] Procedures Procedure Name Priority Date/Time Associated Diagnosis Comments VAS ANKLE BRACHIAL INDEX - SEGMENTAL Routine 05/05/2025 2:35 PM EST Ischemic ulcer, 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) Limb ischemia Peripheral arterial disease VAS US ARTERIAL DUPLEX LOWER EXTREMITY UNILATERAL Routine 05/05/2025 2:35 PM EST Ischemic ulcer, 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) Limb ischemia Peripheral arterial disease PHOSPHORUS, PLASMA Routine 04/02/2025 2: 07 AM EDT COMPREHENSIVE METABOLIC PANEL, PLASMA Routine 04/02/2025 2:07 AM EDT CBC W/O DIFFERENTIAL Routine 04/02/2025 2:07 AM EDT MAGNESIUM, PLASMA Routine 04/02/2025 2:0 7 AM EDT MAGNESIUM, PLASMA Routine 04/01/2025 3:3 2 PM EDT RENAL FUNCTION PANEL, PLASMA Routine 04/01/2025 3:32 PM EDT OXYGEN THERAPY Routine 04/01/2025 8:00 AM EDT PHOSPHORUS, PLASMA Routine 04/01/2025 2: 56 AM EDT COMPREHENSIVE METABOLIC PANEL, PLASMA Routine 04/01/2025 2:56 AM EDT CBC W/O DIFFERENTIAL Routine 04/01/2025 2:56 AM EDT MAGNESIUM, PLASMA Routine 04/01/2025 2:5 6 AM EDT INSERT PERIPHERAL IV Routine 03/31/2025 8:41 PM EDT OXYGEN THERAPY Routine 03/31/2025 8:00 PM EDT POCT GLUCOSE METER UNSOLICITED RESULTS Routine 03/31/2025 6:11 PM EDT [place] [facility], E/M 30-74 MINUTES Routine 03/31/2025 10:54 AM EDT Peripheral arterial disease (CMS/HCC) Postoperative hypotension Ischemic ulcer, 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) History of prostate cancer 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, unspecified vessel or lesion type Electrolyte imbalance OXYGEN THERAPY Routine 03/31/2025 8:00 AM EDT ANTI XA LEVEL UNFRACTIONATED HEPARIN STAT 03/31/2025 12:04 AM EDT MAGNESIUM, PLASMA Routine 03/31/2025 12:04 AM EDT PROTHROMBIN TIME(PT) / INR Routine 03/31/2025 12:04 AM EDT CBC W/O DIFFERENTIAL Routine 03/31/2025 12:04 AM EDT OXYGEN THERAPY Routine 03/30/2025 8:00 PM EDT RENAL FUNCTION PANEL, PLASMA Routine 03/30/2025 7:00 PM EDT [place] CRITICAL CARE, E/M 30-74 MINUTES Routine 03/30/2025 6:27 PM EDT Peripheral arterial disease (CMS/HCC) Postoperative hypotension Ischemic ulcer, 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) Hypophosphatemia Hypomagnesemia History of prostate cancer 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, unspecified vessel or lesion type ANTI XA LEVEL UNFRACTIONATED HEPARIN STAT 03/30/2025 5:57 PM EDT PROTHROMBIN TIME(PT) / INR Pending Discharge 03/30/2025 5:57 PM EDT ANTI XA LEVEL UNFRACTIONATED HEPARIN Pending Discharge 03/30/2025 12:01 PM EDT APTT Pending Discharge 03/30/2025 12:01 PM EDT PROTHROMBIN TIME(PT) / INR Pending Discharge 03/30/2025 12:01 PM EDT CBC W/O DIFFERENTIAL Pending Discharge 03/30/2025 10:05 AM EDT HEMOGLOBIN AND HEMATOCRIT, BLOOD STAT 03/30/2025 9:36 AM EDT MAGNESIUM, PLASMA STAT 03/30/2025 9:3 6 AM EDT RENAL FUNCTION PANEL, PLASMA STAT 03/30/2025 9:36 AM EDT PLATELET COUNT, BLOOD Pending Discharge 03/30/2025 9:36 AM EDT HEMATOCRIT, BLOOD Pending Discharge 03/30/2025 9:36 AM EDT BLOOD GAS PANEL, ARTERIAL Pending Discharge 03/30/2025 9:32 AM EDT STACEY AURIS SURVEILLANCE BY PCR Pending Discharge 03/30/2025 8:58 AM EDT OXYGEN THERAPY Routine 03/30/2025 8:00 AM EDT ANTI XA LEVEL UNFRACTIONATED HEPARIN Timed 03/30/2025 5:21 AM EDT APTT Timed 03/30/2025 5:21 AM EDT PROTHROMBIN TIME(PT) / INR Timed 03/30/2025 5:21 AM EDT PLATELET COUNT, BLOOD Timed 03/30/2025 5:21 AM EDT HEMATOCRIT, BLOOD Timed 03/30/2025 5:2 1 AM EDT PROTHROMBIN TIME(PT) / INR STAT 03/30/2025 12:28 AM EDT CBC W/O DIFFERENTIAL STAT 03/30/2025 12:28 AM EDT ANTI XA LEVEL UNFRACTIONATED HEPARIN STAT 03/30/2025 12:28 AM EDT ANTI XA LEVEL UNFRACTIONATED HEPARIN Timed 03/30/2025 12:01 AM EDT APTT Timed 03/30/2025 12:01 AM EDT PLATELET COUNT, BLOOD Timed 03/30/2025 12:01 AM EDT HEMATOCRIT, BLOOD Timed 03/30/2025 12:01 AM EDT OXYGEN THERAPY Routine 03/29/2025 8:00 PM EDT ANTI XA LEVEL UNFRACTIONATED HEPARIN Timed 03/29/2025 7:24 PM EDT APTT Timed 03/29/2025 7:24 PM EDT PROTHROMBIN TIME(PT) / INR Timed 03/29/2025 7:24 PM EDT CBC W/O [...] PANEL, ARTERIAL STAT 03/29/2025 2:48 PM EDT PB POINT OF CARE IMAGING PLACEHOLDER Routine 03/29/2025 1:58 PM EDT PB ANESTHESIA NON-TIMED PROCEDURE PLACEHOLDER Routine 03/29/2025 1:58 PM EDT ANESTHESIA PERIPHERAL IV PLACEMENT Routine 03/29/2025 1:50 PM EDT ANESTHESIA PERIPHERAL IV PLACEMENT Routine 03/29/2025 1:45 PM EDT PB ANESTHESIA PLACEHOLDER Routine 03/29/2025 1:37 PM EDT NJ AN ELECTIVE ENDOTRACHEAL AIRWAY Routine 03/29/2025 1:37 PM EDT REVASCULARIZATION, LOWER EXTREMITY 03/29/2025 1:14 PM EDT Peripheral arterial disease (CMS/HCC) TYPE AND SCREEN Routine 03/29/2025 10:52 AM EDT OXYGEN THERAPY Routine 03/29/2025 8:00 AM EDT ECHO, ADULT TRANSTHORACIC COMPLETE W/ CONTRAST Routine 03/29/2025 7:52 AM EDT PHOSPHORUS, PLASMA Routine 03/29/2025 3: 25 AM EDT MAGNESIUM, PLASMA Routine 03/29/2025 3:2 5 AM EDT BASIC METABOLIC PANEL, PLASMA Routine 03/29/2025 3:25 AM EDT CBC W/O DIFFERENTIAL Routine 03/29/2025 3:25 AM EDT OXYGEN THERAPY [...] OXYGEN THERAPY Routine 03/26/2025 8:00 AM EDT HEMOGLOBIN A1C Add-On 03/26/2025 1:53 AM EDT BASIC METABOLIC PANEL, PLASMA Routine 03/26/2025 1:53 AM EDT CBC W/O DIFFERENTIAL Routine 03/26/2025 1:53 AM EDT ECG ADULT [...] UNSOLICITED RESULTS Routine 03/25/2025 1:36 PM EDT ANESTHESIA PERIPHERAL IV PLACEMENT Routine 03/25/2025 12:36 PM EDT PB ANESTHESIA PLACEHOLDER Routine 03/25/2025 12:30 PM EDT NJ AN ELECTIVE ENDOTRACHEAL AIRWAY Routine 03/25/2025 12:30 PM EDT [place] REVASCULARIZE ILIAC ARTERY,ANGIOPLASTY, INITIAL VESSEL 03/25/2025 12:05 PM EDT Ischemic ulcer, 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) Peripheral arterial disease (CMS/HCC) PREPARE RBC STAT 03/25/2025 12:03 PM EDT TYPE AND SCREEN Routine 03/25/2025 11:28 AM EDT PROTHROMBIN TIME(PT) / INR STAT 03/25/2025 11:28 AM EDT BASIC METABOLIC PANEL, PLASMA Routine 03/25/2025 11:28 AM EDT CBC W/O DIFFERENTIAL STAT 03/25/2025 11:[address] OUTSIDE IMAGES 02/25/2025 12:13 PM EDT from Last 3 Months Results * VAS Ankle Brachial Index - Segmental (05/05/2025 2:35 PM EST) Anatomical Region Laterality Modality Vascular Ultrasound Impressions 05/05/2025 8:54 PM EST Right: The METROLOGY TECHNICIAN and DPA are non-compressible at the ankle. [...] are demonstrated at the level of the GLASS BEVELER (imaged on same day arterial duplex). Monophasic waveforms are demonstrated at the levels of the METROLOGY TECHNICIAN and DPA. Vessels are non-compressible at the ankle, consistent with medial calcinosis. Toe pressure of 71 mmHg is obtained. Left: Unable to obtain GLASS BEVELER waveform due to incision site. Monophasic waveforms are demonstrated at the DPA and METROLOGY TECHNICIAN. Segmental pressures are within normal limits with a METROLOGY TECHNICIAN MEGAN of 0.99 (151 mmHg) and a [...] are demonstrated at the level of the GLASS BEVELER(imaged on same day arterial duplex). Monophasic waveforms aredemonstrated at the levels of the METROLOGY TECHNICIAN and DPA. Vessels arenon-compressible at the ankle, consistent with medial calcinosis. Toepressure of 71 mmHg is obtained. Left: Unable to obtain GLASS BEVELER waveform due to incision site. Monophasicwaveforms are demonstrated at the DPA and METROLOGY TECHNICIAN. Segmental pressures arewithin normal limits with a METROLOGY TECHNICIAN MEGAN of 0.99 (151 mmHg) and a DPA MEGAN of0.94 (144 mmHg). Digit pressures are 72 mmHg. IMPRESSION: Right: The METROLOGY TECHNICIAN and DPA are non-compressible at the ankle. [...] and patient movement. Unable to visualize the GLASS BEVELER, PFA and proximal BPG anastomosis. Arterial duplex demonstrates monophasic waveforms throughout the entirety of the BPG and at the table mountain METROLOGY TECHNICIAN and DPA. The following flow velocities are recorded: Common femoral artery: not visualized. Profunda femoral artery: not visualized. GLASS BEVELER to METROLOGY TECHNICIAN PTFE BPG: Proximal thigh: 72 cm/s Mid [...] suture and patientmovement. Unable to visualize the GLASS BEVELER, PFA and proximal BPG anastomosis. Arterial duplex demonstrates monophasic waveforms throughout the entiretyof the BPG and at the table mountain METROLOGY TECHNICIAN and DPA. The following flow velocitiesare recorded: Common femoral artery: not visualized. Profunda femoral artery: not visualized. GLASS BEVELER to METROLOGY TECHNICIAN PTFE BPG: Proximal thigh: 72 cm/s Mid [...] VASCULAR PROCEDURES Fi nal Result * (ABNORMAL) CBC W/O Differential (04/02/2025 2:07 AM EDT) Only the most recent of10 resultswithin the time period is included. WBC Count 7.48 3.70 - 10.30 10*3/uL LAB HEMATOLOGY METHOD 04/02/2025 2:24 AM EDT [facility] RBC Count 3.10(L) 4.60 - 6.10 10*6/uL LAB HEMATOLOGY METHOD 04/02/2025 2:24 AM EDT [facility] HGB 9.1(L) 13.7 - 17.5 g/dL LAB HEMATOLOGY METHOD 04/02/2025 2:24 AM EDT [facility] HCT 27.4(L) 40.0 - 51.0 % LAB HEMATOLOGY METHOD 04/02/2025 2:24 AM EDT [facility] Platelet Count 181 155 - 369 10*3/uL LAB HEMATOLOGY METHOD 04/02/2025 2:24 AM EDT [facility] MCV 88 79 - 98 fL LAB HEMATOLOGY METHOD 04/02/2025 2:24 AM EDT [facility] MCH 29.4 26.0 - 32.0 pg LAB HEMATOLOGY METHOD 04/02/2025 2:24 AM EDT [facility] MCHC 33.2 30.7 - 35.5 g/dL LAB HEMATOLOGY METHOD 04/02/2025 2:24 AM EDT [facility] RDW 15.5(H) 11.5 - 14.5 % LAB HEMATOLOGY METHOD 04/02/2025 2:24 AM EDT [facility] MPV 9.8 8.8 - 12.5 fL LAB HEMATOLOGY METHOD 04/02/2025 2:24 AM EDT [facility] nRBC 0.3(H) <=0.0 per 100 WBCs LAB HEMATOLOGY METHOD 04/02/2025 2:24 AM EDT [facility] Blood Venous blood specimen / Unknown Venipuncture / Unknown 04/02/2025 2:07 AM EDT 04/02/2025 2:15 AM EDT Roselyn Contreras [facility] BLOOD ORDERABLES Final Res ult Performing Organization Address City/[facility]/ZIP Co de Phone Number [facility] [address] [place] [address] * (ABNORMAL) Phosphorus (04/02/2025 2:07 AM EDT) Only the most recent of3 resultswithin the time period is included. Phosphorus, Plasma 1.8(L) 2.5 - 4.5 mg/dL 04/02/2025 2:45 AM EDT [facility] Blood Venous blood specimen / Unknown Venipuncture / Unknown 04/02/2025 2:07 AM EDT 04/02/2025 2:15 AM EDT Roselyn Contreras [employer] LAB BLOOD ORDERABLES Final Res ult [facility] [address] [place] [address] * Magnesium, Plasma (04/02/2025 2:07 AM EDT) Only the most recent of6 resultswithin the time period is included. Magnesium, Plasma 2.1 1.9 - 2.4 mg/dL 04/02/2025 2:45 AM EDT [facility] Blood Venous blood specimen / Unknown Venipuncture / Unknown 04/02/2025 2:07 AM EDT 04/02/2025 2:15 AM EDT Angelica Hi Justin NET DEVELOPER CONTRACT, DNP LAB BLOOD ORDERABLES Final Result [facility] [address] [place] [address] * (ABNORMAL) Comprehensive metabolic panel (04/02/2025 2:07 AM EDT) Only the most recent of2 resultswithin the time period is included. Glucose, Plasma 128(H) 74 - 99 mg/dL 04/02/2025 2:45 AM EDT [facility] BUN, Plasma 11 8 - 23 mg/dL 04/02/2025 2:45 AM EDT [facility] Creatinine, Plasma 0.68(L) 0.70 - 1.20 mg/dL 04/02/2025 2:45 AM EDT [facility] BUN/Creatinine Ratio 16 04/02/2025 2:45 AM EDT [facility] Sodium, Plasma 141 136 - 145 mmol/L 04/02/2025 2:45 AM EDT [facility] Potassium, Plasma 3.7 3.6 - 4.9 mmol/L 04/02/2025 2:45 AM EDT [facility] Chloride, Plasma 108(H) 97 - 107 mmol/L 04/02/2025 2:45 AM EDT [facility] CO2, Plasma 22 22 - 29 mmol/L 04/02/2025 2:45 AM EDT [facility] Anion Gap 11 6 - 16 mmol/L 04/02/2025 2:45 AM EDT [facility] Total Calcium, Plasma 8.0(L) 8.9 - 10.2 mg/dL 04/02/2025 2:45 AM EDT [facility] Total Protein 5.6(L) 6.3 - 7.9 g/dL 04/02/2025 2:45 AM EDT [facility] Albumin, Plasma 2.7(L) 3.5 - 5.2 g/dL 04/02/2025 2:45 AM EDT [facility] AST, Plasma 30 10 - 50 U/L 04/02/2025 2:45 AM EDT [facility] ALT, Plasma 18 10 - 50 U/L 04/02/2025 2:45 AM EDT [facility] Alkaline Phosphatase, Plasma 53 40 - 115 U/L 04/02/2025 2:45 AM EDT [facility] Total Bilirubin, Plasma 0.5 0.2 - 1.1 mg/dL 04/02/2025 2:45 AM EDT [facility] eGFRcr 91.7 mL/min/1.7 3m*2 04/02/2025 2:45 AM EDT [facility] Comment:Reported eGFRcr in m L/min/1.73m2 is based the CKD-EPI 2020 equation that does not use a race coefficient. Blood Venous blood specimen / Unknown Venipuncture / Unknown 04/02/2025 2:07 AM EDT 04/02/2025 2:15 AM EDT us Roselyn Contreras [employer] LAB BLOOD ORDERABLES Final Res ult [facility] [address] [place] [address] * (ABNORMAL) Renal Function Panel, Plasma (04/01/2025 3:32 PM EDT) Only the most recent of3 resultswithin the time period is included. Glucose, Plasma 173(H) 74 - 99 mg/dL 04/01/2025 4:28 PM EDT [facility] BUN, Plasma 12 8 - 23 mg/dL 04/01/2025 4:28 PM EDT [facility] Creatinine, Plasma 0.65(L) 0.70 - 1.20 mg/dL 04/01/2025 4:28 PM EDT [facility] BUN/Creatinine Ratio 18 04/01/2025 4:28 PM EDT [facility] Sodium, Plasma 136 136 - 145 mmol/L 04/01/2025 4:28 PM EDT [facility] Potassium, Plasma 5.4(H) 3.6 - 4.9 mmol/L 04/01/2025 4:28 PM EDT [facility] Comment:Hemolyzed, result ma y be falsely increased. Chloride, Plasma 105 97 - 107 mmol/L 04/01/2025 4:28 PM EDT [facility] CO2, Plasma 21(L) 22 - 29 mmol/L 04/01/2025 4:28 PM EDT [facility] Anion Gap 10 6 - 16 mmol/L 04/01/2025 4:28 PM EDT [facility] Total Calcium, Plasma 8.1(L) 8.9 - 10.2 mg/dL 04/01/2025 4:28 PM EDT [facility] Phosphorus, Plasma 2.1(L) 2.5 - 4.5 mg/dL 04/01/2025 4:28 PM EDT [facility] Albumin, Plasma 2.7(L) 3.5 - 5.2 g/dL 04/01/2025 4:28 PM EDT [facility] eGFRcr 92.9 mL/min/1.7 3m*2 04/01/2025 4:28 PM EDT [facility] Comment:Reported eGFRcr in m L/min/1.73m2 is based the CKD-EPI 2020 equation that does not use a race coefficient. Blood Venous blood specimen / Unknown Venipuncture / Unknown 04/01/2025 3:32 PM EDT 04/01/2025 3:55 PM EDT us Roselyn Contreras [employer] [facility] BLOOD ORDERABLES Final Res ult [facility] [address] [place] [address] * PERIPHERAL IV (SMARTFORM LINK) (03/31/2025 8:41 [...] IV site covered with: Transparent semipermeable dressing us Rolando Lynch MD IV THERAPY ORDERABLES Final R esult * (ABNORMAL) POCT glucose meter (03/31/2025 6:11 PM EDT) POCT Glucose 110(H) 74 - 99 mg/dL 03/31/2025 6:13 PM EDT [facility] Comment:Accuracy of a glucos e [...] Comment 03/31/2025 6:13 PM EDT [facility] Design Engineer ID Tsering Marie 03/31/2025 6:13 PM EDT [facility]ALTHCARE LAB Device ID [id number] 03/31/2025 6:13 PM EDT [facility]ALTHCARE LAB Specimen Type POC Capillary 03/31/2025 6:13 PM EDT [facility]ALTH[facility]ARE LAB Blood Capillary blood specimen / Unknown 03/31/2025 6:11 PM EDT 03/31/2025 6:13 PM EDT Rolando Lynch MD LAB POINT OF CARE TE ST DOCKED DEVICE UNSOLICITED RESULTS Final Result Performing Organization Address City/State/[facility] Co de Phone Number [facility] [address] [place] [address] * [place] CRITICAL CARE, E/M 30-74 MINUTES (03/31/2025 10:54 [...] IN CLINIC/BEDSIDE ORDERABLES F inal Result * (ABNORMAL) Protime-INR (03/31/2025 12:04 AM EDT) Only the most recent of7 resultswithin the time period is included. Prothrombin Time 18.6(H) 12.0 - 14.3 sec LAB COAGULATION METHOD 03/31/2025 1:05 AM EDT [facility] INR 1.5(H) 0.9 - 1.1 LAB COAGULATION METHOD 03/31/2025 1:05 AM EDT [facility] Blood Venous blood specimen / Unknown Venipuncture / Unknown 03/31/2025 12:04 AM EDT 03/31/2025 12:12 AM EDT Narrative [facility] - 03/31/2025 1:05 AM EDT OPTIMAL INR RANGES FOR PATIENT ON ORAL ANTICOAGULANT THERAPY Prevention of venous thromboembolism INR 2.0 to 3.0 In patients with heart disease: Atrial fibrillation INR 2.0 to 3.0 Valvular heart disease INR 2.0 to 3.0 Tissue heart valves INR 2.0 to 3.0 Mechanical prosthetic valves INR 2.5 to 3.5 Prevention of recurrent VA INR 2.5 to 3.5 Angelica Anderson APRN, [facility] LAB BLOOD ORDERABLES Final Result [facility] [address] [place] [address] * Anti Xa Level Unfractionated Heparin - Heparin Drip Titration (03/31/2025 12:04 AM EDT) Only the most recent of7 resultswithin the time period is included. Anti Xa Level Unfractionated Heparin 0.52 <1.00 IU/mL LAB COAGULATION METHOD 03/31/2025 1:05 AM EDT [facility] Blood Venous blood specimen / Unknown Venipuncture / Unknown 03/31/2025 12:04 AM EDT 03/31/2025 12:12 AM EDT Narrative [facility] - 03/31/2025 1:05 AM EDT Therapeutic Range: UFH Full Dose and ACS/VA protocols*: 0.30 - 0.70 IU/mL UFH Low Dose protocol*: 0.25 - 0.50 IU/mL UFH prophylaxis: Not established us Rolando Lynch MD LAB BLOOD ORDERABLES Final Re sult [facility] [address] [place] [address] * [place] CRITICAL CARE, E/M 30-74 MINUTES (03/30/2025 6:27 [...] IN CLINIC/BEDSIDE OR DERABLES Final Result * (ABNORMAL) APTT (03/30/2025 12:01 PM EDT) Only the most recent of4 resultswithin the time period is included. aPTT 125(HH) 25 - 35 sec LAB COAGULATION METHOD 03/30/2025 12:35 PM EDT [facility] Blood Venous blood specimen / Unknown Venipuncture / Unknown 03/30/2025 12:01 PM EDT 03/30/2025 12:09 PM EDT us Fabián Salgado MD LAB BLOOD ORDERABLES Final Res ult Performing Organization Address [facility] Co de Phone Number [facility] [address] [place] [address] * (ABNORMAL) Hemoglobin and Hematocrit, Blood (03/30/2025 9:36 AM EDT) HGB 10.5(L) 13.7 - 17.5 g/dL LAB HEMATOLOGY METHOD 03/30/2025 10:08 AM EDT [facility] HCT 30.9(L) 40.0 - 51.0 % LAB HEMATOLOGY METHOD 03/30/2025 10:08 AM EDT [facility] Blood Venous blood specimen / Unknown Venipuncture / Unknown 03/30/2025 9:36 AM EDT 03/30/2025 9:59 AM EDT us Angelica Anderson APRN, DNP LAB BLOOD ORDERABLES Final Result Performing Organization Address [facility] Co de Phone Number [facility] [address] [place] [address] * Platelet count (03/30/2025 9:36 AM EDT) Only the most recent of3 resultswithin the time period is included. Platelet Count 177 155 - 369 10*3/uL LAB HEMATOLOGY METHOD 03/30/2025 10:08 AM EDT [facility] Blood Venous blood specimen / Unknown Venipuncture / Unknown 03/30/2025 9:36 AM EDT 03/30/2025 9:59 AM EDT us Fabián Salgado MD LAB BLOOD ORDERABLES Final Res ult Performing Organization Address [facility] Co de Phone Number [facility] [address] [place] [address] * (ABNORMAL) Hematocrit (03/30/2025 9:36 AM EDT) Only the most recent of3 resultswithin the time period is included. HCT 30.9(L) 40.0 - 51.0 % LAB HEMATOLOGY METHOD 03/30/2025 10:08 AM EDT [facility] Blood Venous blood specimen / Unknown Venipuncture / Unknown 03/30/2025 9:36 AM EDT 03/30/2025 9:59 AM EDT us Fabián Salgado MD LAB BLOOD ORDERABLES Final Res ult [facility] [address] [place] [address] * (ABNORMAL) Blood gas panel, arterial (03/30/2025 9:32 AM EDT) Only the most recent of3 resultswithin the time period is included. pH, Arterial 7.43(H) 7.31 - 7.42 LAB HEMATOLOGY METHOD 03/30/2025 9:41 AM EDT [facility] pCO2, Arterial 39 32 - 45 mmHg LAB HEMATOLOGY METHOD 03/30/2025 9:41 AM EDT [facility] pO2, Arterial 92 >60 mmHg LAB HEMATOLOGY METHOD 03/30/2025 9:41 AM EDT [facility] SO2, Measured, Arterial 99(H) 94 - 98 % LAB HEMATOLOGY METHOD 03/30/2025 9:41 AM EDT [facility] Base Excess, Arterial 1.2 -2.0 - 3.0 mmol/L LAB HEMATOLOGY METHOD 03/30/2025 9:41 AM EDT [facility] Bicarbonate, Calculated, Arterial 26 22 - 26 mmol/L LAB HEMATOLOGY METHOD 03/30/2025 9:41 AM EDT [facility] Hematocrit, Whole Blood 33.3(L) 40.0 - 51.0 % LAB HEMATOLOGY METHOD 03/30/2025 9:41 AM EDT [facility] Sodium, Whole Blood 136 136 - 145 mmol/L LAB HEMATOLOGY METHOD 03/30/2025 9:41 AM EDT [facility] Potassium, Whole Blood 4.1 3.6 - 4.9 mmol/L LAB HEMATOLOGY METHOD 03/30/2025 9:41 AM EDT [facility] Chloride, Whole Blood 103 97 - 107 mmol/L LAB HEMATOLOGY METHOD 03/30/2025 9:41 AM EDT [facility] Glucose, Whole Blood 158(H) 74 - 99 mg/dL LAB HEMATOLOGY METHOD 03/30/2025 9:41 AM EDT [facility] Ionized Calcium, Whole Blood 4.4(L) 4.6 - 5.1 mg/dL LAB HEMATOLOGY METHOD 03/30/2025 9:41 AM EDT [facility] Lactate, Arterial, Whole Blood 1.7(H) 0.5 - 1.6 mmol/L LAB HEMATOLOGY METHOD 03/30/2025 9:41 AM EDT [facility] Blood Arterial blood specimen / Unknown Arterial Puncture / Unknown 03/30/2025 9:32 AM EDT 03/30/2025 9:38 AM EDT Rolando Lynch MD LAB BLOOD ORDERABLES Final Re sult Performing Organization Address City/[facility]/ZIP Co de Phone Number [facility] [address] [place] [address] * Stacey auris Surveillance by PCR (03/30/2025 8:58 AM EDT) Stacey auris PCR Result Not Detected Not Detected 03/31/2025 7:55 AM EDT [facility] Swab (Axilla and Groin) Non-blood Collection / Unknown 03/30/2025 8:58 AM EDT 03/30/2025 9:17 AM EDT Narrative [facility] - 03/31/2025 7:55 AM EDT This PCR assay was developed and its performance characteristics determined by [facility] as appropriate for clinical purposes. This assay has not been cleared or approved by the FDA, but is performed in a CLIA regulated laboratory that is qualified to perform high-complexity testing. us Rolando Lynch MD LAB MICROBIOLOGY - GENERAL OR DERABLES Final Result Performing Organization Address City/[facility]/ZIP Co de Phone Number [facility] [address] [place] [address] * [place] Less than 1 Hour Intraoperative (03/29/2025 6:30 PM EDT) Only the most recent of2 resultswithin the time period is included. Narrative IMAGING - 03/29/2025 7:18 PM EDT Images were obtained for surgical purposes. See Tan, Kana B's surgical note in the patient's chart for the findings. us Kana Maddox MD IMG FLUOROSCOPY PROCEDURE S Final Result IMAGING * POCT ACT (03/29/2025 5:10 PM EDT) Only the most recent of5 resultswithin the time period is included. ACT+ (HIGH RANGE) 214 68 - 600 Seconds 04/28/2025 8:21 AM EDT HEALTHCARE LAB Automation Design Engineer ID Hunter Butler 04/28/2025 8:21 AM EDT HEALTHCARE LAB ACT Device ID [id number] 04/28/2025 8:21 AM EDT [facility] Comment 04/28/2025 8:21 AM EDT [facility] Comment: ACT performed by staff [...] UNSOLICITED RESULTS Final Result Performing Organization Address [facility] de Phone Number [facility] [address] LAB [address] [place] [address] * PB ANESTHESIA NON-TIMED PROCEDURE PLACEHOLDER, PB [...] procedure well with no complications. Staffing Performed: CARVING MACHINE OPERATOR CARVING MACHINE OPERATOR: Ian Lou CRNA, DNP us Henry Harris MD ANESTHESIA ORDERABLES Final Res ult * Peripheral IV (03/29/2025 1:50 PM EDT) Narrative Ian Lou CRNA, DNP - 03/29/2025 1:50 PM EDT Ian Lou CRNA, DNP 03/29/2025 2:42 PM Peripheral IV Date/Time: 03/29/2025 1:50 PM Inserted by: Henry Harris MD Placement Needle size: 16 G Location: wrist Site prep: alcohol Attempts: 1 us Henry Harris MD ANESTHESIA ORDERABLES Final Res ult * Peripheral IV (03/29/2025 1:45 PM EDT) Narrative Ian Lou CRNA, DNP - 03/29/2025 1:45 PM EDT Ian Lou CRNA, DNP 03/29/2025 2:42 PM Peripheral IV Date/Time: 03/29/2025 1:45 PM Inserted by: Henry Harris MD Placement Needle size: 16 G Location: hand Local anesthetic: none Site prep: alcohol Attempts: 1 Henry Harris MD ANESTHESIA ORDERABLES Final Res ult * [place] AN ELECTIVE ENDOTRACHEAL AIRWAY, PB ANESTHESIA PLACEHOLDER (03/29/2025 1:37 PM EDT) Narrative Ian Lou CRNA, DNP - 03/29/2025 1:37 PM EDT Ian Lou CRNA, DNP 03/29/2025 2:41 PM Airway Date/Time: 03/29/2025 1:37 PM Reason: elective Airway not difficult General Information and Staff Patient location during procedure: OR CARVING MACHINE OPERATOR: Ian Lou CRNA, DNP Performed: CARVING MACHINE OPERATOR Patient Condition Indications for airway management: anesthesia [...] Additional Comments Atraumatic. No change to dentition. us Henry Harris MD ANESTHESIA ORDERABLES Final Res ult * Type and Screen (03/29/2025 10:52 AM EDT) Only the most recent of2 resultswithin the time period is included. ABO/Rh O Positive 03/29/2025 10:57 AM EDT BLOOD BANK Antibody Screen Negative 03/29/2025 10:57 AM EDT BLOOD BANK Specimen Expiration 04/01/2025 23:59 03/29/2025 10:57 AM EDT BLOOD BANK Blood Venous blood specimen / Unknown Venipuncture / Unknown 03/29/2025 10:52 AM EDT 03/29/2025 10:57 AM EDT [facility] BLOOD BANK TEST ORDERABLES F inal Result BLOOD BANK [address] [place] [address], [place] * ECHO, ADULT TRANSTHORACIC COMPLETE W/ [...] mean PAP 52 mmHg MONTY ISCV PA [place](ACCEL) 52.1 mmHg MONTY ISCV PA acc slope [...] is no recent study available for direct wibx-dy-[id number] comparison. Left Ventricle Based on the linear [...] is no recent study available for direct [id number]-er-cwuw comparison. us Angelica Anderson APRN, SHREYAS CV ECHO PROCEDURES F inal Result * (ABNORMAL) Basic metabolic panel (03/29/2025 3:25 AM EDT) Only the most recent of3 resultswithin the time period is included. Glucose, Plasma 109(H) 74 - 99 mg/dL 03/29/2025 4:17 AM EDT [facility] BUN, Plasma 19 8 - 23 mg/dL 03/29/2025 4:17 AM EDT [facility] Creatinine, Plasma 0.82 0.70 - 1.20 mg/dL 03/29/2025 4:17 AM EDT [facility] BUN/Creatinine Ratio 23 03/29/2025 4:17 AM EDT [facility] Sodium, Plasma 141 136 - 145 mmol/L 03/29/2025 4:17 AM EDT [facility] Potassium, Plasma 3.8 3.6 - 4.9 mmol/L 03/29/2025 4:17 AM EDT [facility] Chloride, Plasma 105 97 - 107 mmol/L 03/29/2025 4:17 AM EDT [facility] CO2, Plasma 24 22 - 29 mmol/L 03/29/2025 4:17 AM EDT [facility] Anion Gap 12 6 - 16 mmol/L 03/29/2025 4:17 AM EDT [facility] Total Calcium, Plasma 9.0 8.9 - 10.2 mg/dL 03/29/2025 4:17 AM EDT [facility] eGFRcr 86.6 mL/min/1.7 3m*2 03/29/2025 4:17 AM EDT [facility] Comment:Reported eGFRcr in m L/min/1.73m2 is based the CKD-EPI 2020 equation that does not use a race coefficient. Blood Venous blood specimen / Unknown Venipuncture / Unknown 03/29/2025 3:25 AM EDT 03/29/2025 3:47 AM EDT us Fabián Salgado MD LAB BLOOD ORDERABLES Final Res ult [facility] [address] [place] [address] * Light Green Top (03/28/2025 3:59 AM EDT) Extra Hold for add-ons 03/28/2025 7:01 AM EDT [facility] Comment:Auto resulted. Blood Venous blood specimen / Unknown 03/28/2025 3:59 AM EDT 03/28/2025 4:14 AM EDT us Fabián Salgado MD LAB BLOOD ORDERABLES Final Res ult [facility] [address] [place] [address] * VAS US Venous Duplex Lower Extremity [...] signing this report, I, the attending physician, attramanthat I have personally reviewed the images/data for the aboveexamination(s) and I agree with the final edited report. Drafted by Felicia Benítez RVT on 03/26/2025 8:19 AM Final report signed by Fabián Salgado MD on 03/29/2025 2:36 PM Fabián Salgado MD CV VASCULAR PROCEDURES Final R esult * (ABNORMAL) Hemoglobin A1c (03/26/2025 1:53 AM EDT) Hemoglobin A1c 5.8(H) <5.7 % 03/26/2025 12:06 PM EDT [facility] Blood Venous blood specimen / Unknown Venipuncture / Unknown 03/26/2025 1:53 AM EDT 03/26/2025 2:21 AM EDT Narrative [facility] - 03/26/2025 12:06 PM EDT HA1C Interpretive Data: Diagnosis of Diabetes: Diabetic > or = 6.5% Pre-diabetic 5.7 to 6.4% Non-diabetic < or = 5.6% Glycemic Targets for Type I and Type II Diabetics: Non- Adults <7.0% Adults <6.0% Children and Adolescents <7.5% Source: [place] [employer]. Standards of medical care in diabetes,2017. Diabetes Care.2017:40 (suppl 1):S1-S135. us Angelica Anderson APRN, DNP LAB BLOOD ORDERABLES Final Result Performing Organization Address City/State/[facility] Co de Phone Number [facility] [address] [place] [address] * ECG Adult (03/25/2025 8:10 PM EDT) EKG DIAGNOSIS CLASS Borderline Normal MUSE ECG Ventricular Rate 69 BPM MUSE ECG Atrial Rate 69 BPM MUSE ECG NJ Interval 160 ms MUSE ECG QRSD Interval 82 ms MUSE ECG QT Interval 442 ms MUSE ECG QTC Interval 473 ms MUSE ECG P Amity 106 degrees MUSE ECG R Amity 41 degrees MUSE ECG T Wave Amity 55 degrees MUSE ECG Diagnosis Sinus rhythm with premature supraventricular complexes MUSE ECG Diagnosis Otherwise normal ECG MUSE ECG Diagnosis MUSE ECG Diagnosis Confirmed by Najma Sam ([id number]) on 03/26/2025 9:36:45 PM MUSE ECG 03/25/2025 8:10 PM EDT 03/26/2025 9:36 PM EDT us Fabián Salgado MD ECG ORDERABLES Final Result Performing Organization Address City/[facility] Co de Phone Number MUSE ECG * Peripheral IV (03/25/2025 12:36 PM EDT) Narrative Wellington Tabares MD - 03/25/2025 12:36 PM EDT Wellington Tabares MD 03/25/2025 3:06 PM Peripheral IV Date/Time: 03/25/2025 12:36 PM Placement Needle size: 16 G Location: hand Local anesthetic: none Site prep: alcohol Technique: anatomical landmarks Attempts: 1 Wellington Tabares MD ANESTHESIA ORDERABLES Final Resu lt * [place] AN ELECTIVE ENDOTRACHEAL AIRWAY, PB ANESTHESIA PLACEHOLDER (03/25/2025 12:30 PM EDT) Narrative Carmina Rawls CRNA, DNP - 03/25/2025 12:30 PM EDT Carmina Rawls CRNA, DNP 03/25/2025 1:31 PM Airway Date/Time: 03/25/2025 12:30 PM Reason: elective Airway not difficult General Information and Staff Patient location during procedure: OR CARVING MACHINE OPERATOR: Carmina Rawls CRNA, SHREYAS Performed: CARVING MACHINE OPERATOR Patient Condition Indications for airway management: anesthesia Patient position: sniffing Final Airway Details Final airway type: endotracheal airway Successful airway: ETT Cuffed: yes Successful intubation technique: video laryngoscopy Adjuncts used in placement: intubating stylet Endotracheal tube insertion site: oral Blade: Adam Blade size: #3 ETT size (mm): 7.5 Cormack-Lehane Classification: grade I - full view of glottis Placement verified by: chest auscultation, capnometry and palpation of cuff Measured from: lips ETT to lips (cm): 21 Ventilation between attempts: BVM Other AttemptsUnsuccessful attempted endotracheal techniques: direct laryngoscopy Additional Comments Atraumatic. No change to dentition. Wellington Tabares MD ANESTHESIA ORDERABLES Final Resu lt * CT OUTSIDE IMAGES (02/25/2025 12:13 PM EDT) Anatomical Region Laterality Modality Computed Tomogra phy 02/25/2025 12:1 3 PM EDT External Provider IMG CT PROCEDURES Edited Resul t - Final from Last 3 Months Additional Health Concerns Active Problems Noted Date Diagnosed Date Autogenerated Problem 03/17/2025 Insurance [facility]IC[facility] Advance Directives Documents on File Type Date Recorded Patient Distribution Engineer Expl anation Power of Tufting Machine Operator 09/07/2023 12:49 PM Advance Directives and Livin g Will 09/07/2023 12:48 PM Power of Tufting Machine Operator 08/31/2023 4:31 PM Advance Directives and Livin g Will 08/31/2023 3:45 PM * Full Code (Latest Code Status on File) Date Activated Date Inactivated Comments 04/02/2025 10:38 AM * Full Code Date Activated Date Inactivated Comments 04/01/2025 1:51 PM 04/02/2025 10:38 AM Question Answer Comments I have reviewed the capacity from the link above and, if needed, have updated to appropriate status: Yes * Full Code Date Activated Date Inactivated Comments 03/29/2025 7:14 PM 03/29/2025 7:15 PM Question Answer Comments I have reviewed the capacity from the link above and, if needed, have updated to appropriate status: No * Full Code Date Activated Date Inactivated Comments 03/25/2025 3:26 PM 03/29/2025 7:14 PM Question Answer Comments I have reviewed the capacity from the link above and, if needed, have updated to appropriate status: Yes * Full Code Date Activated Date Inactivated Comments 09/05/2023 10:43 AM 03/25/2025 9:13 AM Care Teams Stage Technician Relationship Specialty Start Date End Date Josee Preciado APRN [address] [place] [address] PCP - General 03/15/25
--- NOTE | 2025-05-25 12:48 | CT_ITS ---
FINAL REPORT TECHNIQUE: Thin section axial images are obtained through the brain after intravenous contrast injection. Multiplanar reconstructions were obtained from the axial data. Exam was performed using dose reduction techniques such as automated exposure control, adjustment of the mA and kV according to patient size, and use of iterative reconstruction technique. CLINICAL HISTORY: Altered mental status COMPARISON: None FINDINGS: The exam is somewhat limited without intravenous contrast administration. The intracerebral portions of the carotid arteries are patent. The anterior and middle cerebral arteries are patent without stenosis or occlusion. The posterior cerebral arteries are patent. The basilar artery is patent. There is prominent atherosclerotic disease of the distal left vertebral artery. There are several areas of short segment high-grade stenosis. The right vertebral artery is patent. There is no significant stenosis, aneurysm, or AVM. 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 There are several areas of short segment high-grade stenosis. The right vertebral artery is patent. Otherwise, unremarkable CTA of the intracranial vessels. Reviewed, Interpreted and Dictated by Bridgett Cameron MD Transcribed by Amanda Gil Authenticated and [facility]
--- NOTE | 2025-05-25 12:48 | CT_ITS ---
FINAL REPORT TECHNIQUE: Thin section axial images were obtained from skull base to vertex without contrast. Coronal and sagittal reconstruction images were obtained from the axial data. Exam was performed using dose reduction techniques such as automated exposure control, adjustment of the mA and kV according to patient size, and use of iterative reconstruction technique. CLINICAL HISTORY: Altered mental status COMPARISON: 10/03/2022 FINDINGS: There is atrophy. No mass effect or midline shift. No intracranial hemorrhage. No hydrocephalus. Periventricular low density is likely related to changes of chronic small vessel ischemia. The basilar cisterns are preserved. The posterior fossa is without acute abnormality. The soft tissues are without acute abnormality. No acute osseous abnormality is identified. IMPRESSION: No acute intracranial abnormality. Atrophy and changes suggesting chronic small vessel ischemia. Reviewed, Interpreted and Dictated by Bridgett Cameron MD Transcribed by Amanda Gil Authenticated and [facility]
--- NOTE | 2025-05-25 12:48 | CT_ITS ---
FINAL REPORT TECHNIQUE: Thin section axial images were obtained from the aortic arch to the skull base after intravenous contrast injection per CTA protocol. Multiplanar reconstruction images were obtained. Exam was performed using dose reduction techniques and the ALARA principle. CLINICAL HISTORY: Altered mental status COMPARISON: None FINDINGS: CTA NECK: Aortic arch: There is a normal three-vessel configuration to the aortic arch. There is no significant stenosis of the great vessels at their origins. Right carotid artery: The right common carotid artery is patent without stenosis. There is mild plaque in the right carotid bulb with less than 50% luminal diameter stenosis. Less than 50 % stenosis per NASCET criteria. Left carotid artery: The left common carotid artery is patent without stenosis. There is calcified and noncalcified plaque in the left carotid bulb, producing approximately 60% left ICA stenosis. 60% % stenosis per NASCET criteria. Vertebral arteries: The vertebral arteries are patent. No significant stenosis. Other soft tissues: Unremarkable. IMPRESSION: 1. Mild plaque in the right carotid bulb producing less than 50% luminal diameter stenosis. 2. There is calcified plaque in the left carotid artery and left carotid bulb, with approximately 60% proximal left internal carotid artery stenosis. Reviewed, Interpreted and Dictated by Bridgett Cameron MD Transcribed by Amanda Gil Authenticated and [facility]
--- NOTE | 2025-05-25 12:49 | CT_ITS ---
FINAL REPORT TECHNIQUE: Axial imaging of the chest is obtained after the administration of contrast. 3-D MIP reformatted images were also obtained and reviewed per PE protocol. This study was performed with techniques to keep radiation doses as low as reasonably achievable (ALARA). Individualized dose reduction techniques using automated exposure control or adjustment of mA and/or kV according to the patient's size were employed. CLINICAL HISTORY: Shortness of air COMPARISON: None FINDINGS: The pulmonary arteries are well filled. There is no evidence of pulmonary embolus. There is no aortic dissection. Heart size is mildly enlarged. There is no mediastinal, hilar, or axillary lymphadenopathy. There is mild interlobular septal thickening in the lung bases and mild bilateral ground glass opacities. There is no pleural or pericardial effusion. Gallstones are present in the gallbladder. There are age-indeterminate compression fractures of T5, T7, T9, and T11. IMPRESSION: 1. No evidence of pulmonary embolism or aortic dissection. 2. Cardiomegaly, with interlobular septal thickening in the bases and mild ground glass opacities, most likely representing pulmonary edema. 3. Age indeterminant thoracic compression fractures as described. Reviewed, Interpreted and Dictated by Bridgett Cameron MD Transcribed by Amanda Gil Authenticated and [facility]
--- NOTE | 2025-05-25 12:49 | CT_ITS ---
FINAL REPORT TECHNIQUE: Thin section axial images were obtained through the cervical spine without contrast. Multiplanar reconstruction images were obtained from the axial data. Exam was performed using dose reduction techniques. This study was performed with techniques to keep radiation doses as low as reasonably achievable (ALARA). Individualized dose reduction techniques using automated exposure control or adjustment of mA and/or kV according to the patient's size were employed. CLINICAL HISTORY: Neck pain COMPARISON: None FINDINGS: There is no acute fracture or acute malalignment of the cervical spine. There is no evidence of unilateral or bilateral facet lock. Vertebral body height is preserved. Multilevel degenerative disc disease is present. No acute paraspinal abnormality is identified. IMPRESSION: No acute osseous abnormality of the cervical spine. Reviewed, Interpreted and Dictated by Bridgett Cameron MD Transcribed by Amanda Gil Authenticated and [facility]
--- NOTE | 2025-05-25 12:50 | CT_ITS ---
FINAL REPORT TECHNIQUE: Thin section axial images were obtained through the abdomen after contrast injection per CT angiogram protocol. Multiplanar reconstruction images were obtained from the axial data. This exam was performed with techniques to keep radiation dose as low as reasonably achievable. This includes automated exposure control, adjustment of the MA and KVP, and iterative reconstruction technique. CLINICAL HISTORY: Weakness, recent fem bypass COMPARISON: 02/05/2025 FINDINGS: CTA: No abdominal aortic aneurysm or aortic dissection. 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 The MARILIN is patent. The bilateral common iliac arteries are patent. There is stable stenosis of the left external iliac artery at the bifurcation. The internal and external iliac arteries are otherwise patent. There is moderate atherosclerotic disease. NONVASCULAR: Gallstones are present. The solid abdominal organs are without acute abnormality. There is diverticulosis without evidence of diverticulitis. There is wall thickening of the urinary bladder, chronic cystitis is not excluded. There is a large amount of stool in the rectum. No lymphadenopathy or free fluid. Multiple lumbar compression fractures are unchanged. IMPRESSION: No evidence of abdominal aortic aneurysm or dissection. 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 Possible chronic cystitis. Reviewed, Interpreted and Dictated by Bridgett Cameron MD Transcribed by Makayla Browning Authenticated and [facility]
[2025-05-25 12:52] LABS: Hematocrit 40.9 % (42.0-52.0); Hemoglobin 12.8 g/dL (14.1-18.0); Immature Granulocytes % 0 %; Mean Corpuscular HGB Conc 31.3 g/dL (31.8-35.4); Mean Corpuscular Hemoglobin 26.7 pg (27.0-31.2); Mean Corpuscular Volume 85.4 fl (80-94); Nucleated Red Blood Cells % 0 %; Platelet Count 199 K/mm3 (142-424); Red Blood Count 4.79 M/mm3 (4.60-6.20); Red Cell Distribution Width-SD 42.6 fL; White Blood Count 2.6 K/mm3 (4.8-10.8)
[2025-05-25 12:54] LABS: Albumin Level 3.6 g/dl (3.5-5.0); Chloride 102 mmol/L (98-107); Potassium 4.0 mmoL/L (3.5-5.1); Sodium 141 mmol/L (136-145)
--- NOTE | 2025-05-25 12:55 | ECG_ITS ---
APPROVED REPORT Exam: Resting ECG HR:65 bpm ECG Measurements Heart Rate 65 AXES NJ 159 P 47 QRSd 88 QRS 48 QT 399 T 47 QTc 410 Conclusion SINUS RHYTHM WITH SINUS ARRHYTHMIA NORMAL ECG UNCONFIRMED REPORT Electronically signed by : Christopher Child, 05/25/2025 15:22:02
[2025-05-25 12:56] LABS: Blood Urea Nitrogen 16 mg/dl (9-20); Creatinine,Serum 1.00 mg/dl (0.66-1.25)
[2025-05-25 12:57] LABS: Alanine Aminotransferase 29 U/L (12-78); Albumin/Globulin Ratio 1.0 (1.1-1.8); Alkaline Phosphatase 73 U/L (38-126); Anion Gap 15.0 mEq/L (5-15); Aspartate Amino Transferase 48 U/L (17-59); Bilirubin,Total 0.5 mg/dl (0.2-1.3); Calcium 8.5 mg/dl (8.4-10.2); Carbon Dioxide 28 mmol/L (22.0-30.0); Creatinine Clearance Estimated 62 mL/min (50-200); Estimated Glomerular Filt Rate 71 ml/min (>60); GFR (African American) 86 ML/MIN (>60); Globulin 3.5 g/dL (1.3-3.2); Glucose 137 mg/dl (74-100); Total Protein,Serum 7.1 g/dl (6.3-8.2)
--- NOTE | 2025-05-25 12:58 | XR_ITS ---
FINAL REPORT CLINICAL HISTORY: Neutropenia, altered mental status COMPARISON: 07/01/2022 FINDINGS: A portable view of the chest was obtained. Prior median sternotomy. The heart is normal in size. There are low lung volumes. Left basilar opacity is likely atelectasis. There is no pleural effusion or pneumothorax. IMPRESSION: Left basilar opacity, likely atelectasis. Reviewed, Interpreted and Dictated by Bridgett Cameron MD Transcribed by Yadira López Authenticated and [facility]
--- NOTE | 2025-05-25 13:00 | HMH.ITSTN ---
Labs pending for Ct
[2025-05-25 13:02] LABS: INR 1.23 (0.9-1.1); Prothrombin Time 13.4 seconds (10.1-12.5)
[2025-05-25 13:16] LABS: Magnesium 2.2 mg/dl (1.6-2.3)
[2025-05-25 13:18] LABS: Adenovirus,PCR Not Detected (NotDetected); Chlamydophila Pneumoniae, PCR Not Detected (NotDetected); Coronavirus 19, PCR Not Detected (NotDetected); Coronovirus HKU1,PCR Not Detected (NotDetected); Influenza A, PCR Not Detected (NotDetected); Influenza AH1, 2009 Not Detected (NotDetected); Influenza AH1, PCR Not Detected (NotDetected); Influenza AH3,PCR Not Detected (NotDetected); Influenza B, PCR Not Detected (NotDetected); Mycoplasma Pneumoniae, PCR Not Detected (NotDetected); Parainfluenza 1, PCR Not Detected (NotDetected); Parainfluenza 2, PCR Not Detected (NotDetected); Parainfluenza 3, PCR Not Detected (NotDetected); Parainfluenza 4, PCR Not Detected (NotDetected)
[2025-05-25 13:26] LABS: Microscopic, Urine URINE MICROSCOPIC (MICROSCOPIC)
[2025-05-25 13:28] LABS: NT Pro Brain Natriuretic Pep. 903 pg/mL (0-450)
[2025-05-25 13:31] LABS: Bilirubin,Urine Negative (Negative); Color,Urine YELLOW (Yellow); Glucose,Urine (UA) Negative (Negative); Ketones,Urine TRACE (Negative); Leukocyte Esterase,Urine 2+ (Negative); PH,Urine 6.0 (5.0-8.5); Protein,Urine 2+ (Negative); Specific Gravity, Urine 1.025 (1.005-1.030); Urobilinogen,Urine 0.2 EU/dl (0.2)
[2025-05-25 13:32] LABS: Troponin I < 0.01 ng/ml (0.00-0.034)
[2025-05-25 13:33] LABS: Ammonia < 9 umol/L (9-30)
[2025-05-25] MEDS: SODIUM CHLORIDE 0.9% 10ML SYR (RAD ONLY) 10 ML IV (13:36)
[2025-05-25] MEDS: IOPAMIDOL-370 (76%);100ML BOTTLE 160 ML IV (13:36)
[2025-05-25] MEDS: 0.9 % SODIUM CHLORIDE 50 ML VIAL 100 ML IV (13:36)
[2025-05-25 13:42] LABS: Bacteria,Urine 1+ /lpf
[2025-05-25 13:43] LABS: Benzodiazepines Screen,Urine Negative ng/ml (<200)
[2025-05-25 13:44] LABS: Amphetamine/Metha Screen,Urine Negative ng/ml (<1000)
[2025-05-25 13:45] LABS: Barbiturates Screen,Urine Negative ng/ml (<200)
[2025-05-25 13:47] LABS: Methadone Screen,Urine Negative ng/ml (<300); Opiate Screen,Urine Negative ng/ml (<300)
[2025-05-25 13:48] LABS: Phencyclidine Screen,Urine Negative ng/ml (<25)
[2025-05-25 14:01] LABS: RBC Morphology Normal; Total Cells Counted 100
[2025-05-25] MEDS: CEFEPIME HCL 2 GM in 0.9 % SODIUM CHLORIDE 100 ML IV (14:21)
[2025-05-25 14:24] LABS: Hepatitis C Ab Qual. W/ RFX NEGATIVE (Negative)
--- NOTE | 2025-05-25 14:25 | PC.NURSE ---
I rounded on the pt. no new complaints. no needs voiced. I gave the pt a pillow for comfort. pts is bedside. call pabon in reach.
--- NOTE | 2025-05-25 15:36 | PC.NURSE ---
Robert WILSON speaking with about possible admission
--- NOTE | 2025-05-25 15:41 | PC.NURSE ---
HS notified of the need for a bed to admit to the hospitalist for UTI and AMS
--- NOTE | 2025-05-25 15:41 | EXP.HP ---
History of Present Illness *Admission Date: 05/25/25 *Reason for visit:: confusion *History of present illness: Mr. Palacios is an 84-year-old male with history of metastatic prostate cancer, osteoporosis, on chronic anticoagulation with Eliquis, peripheral vascular disease hypertension, hyperlipidemia, memory impairment, cauda equina compression. Has history of neutropenia from chart review. Follows with oncology. He presented to the ER via EMS from his halfway ([facility]) with worsening generalized weakness and confusion over the past 2 to 3 days. Patient is significantly off his baseline mentation per family who is at bedside in the ER and nursing at his facility. He is usually cooperative, answers questions appropriately. In the ER, he is not cooperative with exam, not following instructions, responds to very few questions. Unable to answer questions about person place and time downstairs. Normally these are questions he knows the answers to and answers appropriately. Was reportedly recently treated for a UTI but his does not recall the antibiotic or exactly when. Additionally he is recently status post femoral-tibial bypass in March performed in [place] by vascular surgery for his PAD. Workup in the ER concerning for persistent UTI. Worsening neutropenia with neutrophil count of 100, white count 2.6. Electrolytes and kidney function stable. Started on cefepime. Medicine consulted for further management of UTI, acute metabolic encephalopathy, and neutropenia On my evaluation after he arrived to the floor, patient knew his first name and date of but unable to answer any other questions. No family at bedside. Denies any pain. Appears chronically ill but in no acute distress. [facility] Disclaimer: The information contained in this section may have been updated after the patient was seen, as this information can be updated by other users. Medical History Non-healing ulcer of foot, limited to breakdown of skin Abnormal ankle brachial index (MEGAN) HLD (hyperlipidemia) HTN (hypertension) Lumbar compression fracture Bradycardia, sinus Melena Near syncope Medicare annual wellness visit, subsequent Paresthesias Idiopathic neuropathy Swelling of lower extremity Peripheral arterial disease Onychodystrophy Neuropathy Acute hypokalemia Lumbar disc disease Left carotid bruit Carotid artery stenosis Family history of heart disease ERIC (obstructive sleep apnea) Prostate cancer Dizziness Ex-smoker CAD (coronary artery disease) Surgical History History of back surgery History of right-sided carotid endarterectomy Hx of CABG Family History No significant family history Social History Smoking Status: Former smoker alcohol intake: current alcohol intake frequency: holidays/special occasions only substance use type: denies use current occupational status: employed and retired Travel in the last 8 weeks?: None household members: spouse housing: house caffeine: No Have you lived/traveled outside [place] in past 30 days?: No Contact w/someone who lives/traveled outside US past 30 days?: No Exposure to someone with infectious disease in past 14 days?: No Do you have a fever (greater than 100.4 F or 38 C)?: No Have you tested positive for COVID-19?: No Exposed to someone with COVID-19 in past 14 days?: No Do you have a sore throat?: No Do you have a cough?: No Do you have any weakness?: No Do you have any diarrhea?: No Are you experiencing any unusual bleeding?: No Do you have any muscle aches/pain?: No Do you have any abdominal pain?: No Are you experiencing loss of taste or smell?: No Other Medical History Have you received the Flu Vaccine for this season: No Have you received the Pneumonia Vaccine: No Review of Systems Review of Systems Review of systems (narrative): 14 point review of systems performed, pertinent positives and negatives as per HPI Meds Home Medications and Allergies Home Medications ?Medication ?Instructions ?Recorded ?Confirmed ?Type cyanocobalamin (vitamin B-12) 1,000 mcg PO DAILY Supplement 04/15/23 05/25/25 History 1,000 mcg tablet pregabalin 100 mg capsule 100 mg PO BID Pain 04/15/23 05/25/25 History acetaminophen 500 mg capsule 500 mg PO Q8H PRN Pain 10/11/23 05/25/25 History calcium citrate 200 mg PO DAILY 06/03/24 05/25/25 History cholecalciferol (vitamin D3) 50 50 mcg PO DAILY 06/03/24 05/25/25 History mcg (2,000 unit) capsule oxybutynin chloride 10 mg See Rx Instructions .Route 10/12/24 05/25/25 Rx tablet,extended release 24 hr .COMPLEX #90 tabs bisoprolol fumarate 5 mg tablet See Rx Instructions .Route 04/09/25 05/25/25 Rx .COMPLEX #120 tabs ferrous sulfate 325 mg (65 mg See Rx Instructions .Route 04/09/25 05/25/25 Rx iron) tablet (FeroSul) .COMPLEX #120 tabs apixaban 5 mg tablet (Eliquis) 5 mg PO BID 05/13/25 05/25/25 History clopidogrel 75 mg tablet 75 mg PO DAILY 05/13/25 05/25/25 History melatonin 3 mg tablet 3 mg PO HS PRN SLEEP 05/13/25 05/25/25 History calcium 500 mg (as 1 tab PO DAILY 05/25/25 05/25/25 History carbonate)-vitamin D3 5 mcg (200 unit) tablet (Calcium 500 + D) docusate sodium 100 mg capsule 100 mg PO BID 05/25/25 05/25/25 History prednisone 5 mg tablet 5 mg PO DAILY 05/25/25 05/25/25 History sodium di- and 1 tab PO DAILY 05/25/25 05/25/25 History monophosphate-potassium phos monobasic 250 mg tablet (Q-[id number]-[id number]) tramadol 50 mg tablet 50 mg PO Q6H PRN PAIN 05/25/25 05/25/25 History New Prescriptions to Start Prescriptions: Allergies Allergy/AdvReac Type Severity Reaction Status Date / Time No Known Allergies Allergy Verified 05/25/25 16:31 Exam Data for Last 24 hours Vital signs and Labs for Last 24 Hours: Temp Pulse Resp BP Pulse Ox O2 Del Method 98.9 F 77 16 139/83 94 L Room Air 05/25/25 12:35 05/25/25 13:01 05/25/25 13:01 05/25/25 13:01 05/25/25 13:01 05/25/25 13:01 Laboratory Results - last 24 hr 05/25/25 12:40: WBC 2.6 L, RBC 4.79, Hgb 12.8 L, Hct 40.9 L, MCV 85.4, MCH 26.7 L, MCHC 31.3 L, RDW 13.6, Plt Count 199, MPV 9.9, Neut % (Auto) 3.1 L, Lymph % (Auto) 59.7 H, [place] % (Auto) 34.1 H, Eos % (Auto) 2.3, Baso % (Auto) 0.8, Neut # (Auto) 0.1 L*, Lymph # (Auto) 1.5, [place] # (Auto) 0.9, Eos # (Auto) 0.1, Baso # (Auto) 0.0, Total Counted 100, Neutrophils % (Manual) 6 L, Lymphocytes % (Manual) 75 H, Monocytes % (Manual) 17 H, Eosinophils % (Manual) 1, Basophils % (Manual) 1.0, Platelet Estimate Normal, RBC Morphology Normal, PT 13.4 H, INR 1.23 H, Sodium 141, Potassium 4.0, Chloride 102, Carbon Dioxide 28, Anion Gap 15.0, BUN 16, Creatinine 1.00, Estimated Creat Clear 62, Estimated GFR 71, Est GFR ( Amer) 86, Glucose 137 H, Calcium 8.5, Magnesium 2.2, Total Bilirubin 0.5, AST 48, ALT 29, Alkaline Phosphatase 73, Troponin I < 0.01, NT-Pro-B Natriuret Pep 903 H, Total Protein 7.1, Albumin 3.6, Globulin 3.5 H, Albumin/Globulin Ratio 1.0 L, HCV Ab ARIA w/Rflx PCR Qn Negative, HIV Ag/Ab Combo Qual Negative 05/25/25 13:03: Ammonia < 9 L 05/25/25 13:11: Chlamy pneumoniae PCR Not detected, Adenovirus (PCR) Not detected, B. pertussis DNA (PCR) Not detected, Coronavirus OC43 (PCR) Not detected, Coronavirus HKU1 (PCR) Not detected, Coronavirus 229E (PCR) Not detected, SARS-CoV-2 (PCR) Not detected, Coronavirus NL63 (PCR) Not detected, Human Metapneumovir PCR Not detected, Influenza A (H1) PCR Not detected, Influ A (H1N1/09) PCR Not detected, Influenza A (H3) PCR Not detected, Influenza Type A (PCR) Not detected, Influenza Type B (PCR) Not detected, M. pneumoniae (PCR) Not detected, Parainfluenza 1 (PCR) Not detected, Parainfluenza 2 (PCR) Not detected, Parainfluenza 3 (PCR) Not detected, Parainfluenza 4 (PCR) Not detected, RSV (PCR) Not detected, Entero/Rhino (PCR) Not detected 05/25/25 13:16: Urine Color Yellow, Urine Appearance Clear, Urine pH 6.0, Ur Specific [place] 1.025, Urine Protein 2+ A, Urine Glucose (UA) Negative, Urine Ketones Trace, Urine Blood 2+ A, Urine Nitrate Positive A, Urine Bilirubin Negative, Urine Urobilinogen 0.2, Ur Leukocyte Esterase 2+ A, Urine RBC 5-10, Urine WBC 5-10, Ur Squamous Epith Cells 3-5, Urine Bacteria 1+, Urine Opiates Screen Negative, Urine Methadone Screen Negative, Ur Barbituates Screen Negative, Ur Phencyclidine Scrn Negative, Ur Amphetamines Screen Negative, U Benzodiazepines Scrn Negative, Urine Cocaine Screen Negative, U Marijuana (THC) Screen Negative I & O for Last 24 hours: Intake & Output 05/22/25 05/23/25 05/24/25 05/25/25 23:59 23:59 23:59 23:59 Intake Total 100 / 100 Balance 100 / 100 Weight 79.379 kg Constitutional Constitutional: no acute distress, thin, chronically ill appearing and cooperative *Routine HEENT Exam Head: Present normocephalic Eye: Present EOMI and PERRL ENT: Present mucous membranes moist Comments: Alopecia *Routine Neck Exam Neck: Present supple; Absent lymphadenopathy Routine Chest/Breast/Axilla Exam Comments: Bruising/purpura in the shape of telemetry pads; well-healed midline scar *Routine Respiratory Exam Respiratory: Present CTA bilaterally; Absent rhonchi, wheezes or crackles *Routine Cardiovascular Exam Cardiovascular: Present RRR and murmur *Routine Abdominal Exam Abdominal: Present soft and normoactive bowel sounds; Absent tenderness *Routine Rectal Exam Rectal:: deferred *Routine Genitalia Exam Genitalia:: deferred *Routine Extremities Exam Extremities: Absent cyanosis, clubbing or edema *Routine Skin Exam Skin: Present petechiae (Lower extremity), warm, alopecia and ecchymosis; Absent rash Comments: open wound on bottom *Routine Neurological Exam Neurological: Present alert and moving all extremities Comments: GCS 14, decreased from normal, poor historian, family reports he is not at baseline mentation for 2-3 days Assessment and Plan *Assessment and plan (1) UTI (urinary tract infection): Status: Acute Category: Medical Code(s): N39.0 - Urinary tract infection, site not specified (2) HTN (hypertension): Status: Acute Qualifiers: Hypertension type: essential hypertension Qualified Code(s): I10 - Essential (primary) hypertension Category: Medical Code(s): I10 - Essential (primary) hypertension (3) HLD (hyperlipidemia): Status: Acute Qualifiers: Hyperlipidemia type: unspecified Qualified Code(s): E78.5 - Hyperlipidemia, unspecified Category: Medical Code(s): E78.5 - Hyperlipidemia, unspecified (4) Memory loss: Status: Acute Category: Medical Code(s): R41.3 - Other amnesia (5) Acute metabolic encephalopathy: Status: Acute Category: Medical Code(s): G93.41 - Metabolic encephalopathy Plan 84-year-old male who presents from [facility] due to worsening confusion. Found to have UTI. Discussed case with ER physician, request admission for IV antibiotics and monitoring improvement in mentation. I decided to admit for further care. Continuing cefepime. Problems addressed as follows: UTI: Metabolic encephalopathy Neutropenia - Patient's mentation decreased compared to baseline, most consistent with encephalopathy secondary to his infection. - Urinalysis grossly abnormal with positive nitrate, leuk esterase, 5-10 white cells and 1+ bacteria. History of prostate cancer. - Continue cefepime 2 g IV twice daily - Urine culture pending. - White count low at 2.6, neutropenia with neutrophils 100, significantly lower than his normal baseline which is between 500 to thousand - Kidney function remarkably normal with BUN 16, creatinine 1. Potassium 4.0. - CT of abdomen pelvis per my review with some inflammation of bladder wall consistent with chronic cystitis or acute infection Continue Eliquis 5 mg twice daily for PAD Continue bisoprolol 5 mg daily for hypertension Continue docusate 100 mg twice daily for chronic constipation continue melatonin 3 mg nightly as needed for insomnia continue prednisone daily 5 mg Continue pregabalin 100 mg twice daily for neuropathy and pain Continue tramadol 50 mg every 6 hours as needed for pain Repeat CBC, CMP, magnesium ordered for the morning Full code pending DNR paperwork from patient's for more nursing facility. Regular diet Eliquis as above
--- NOTE | 2025-05-25 16:08 | PC.NURSE ---
Patient arrived via stretcher from the ER to the unit at [id number]
[2025-05-25 17:17] LABS: Troponin I 0.01 ng/ml (0.00-0.034)
--- NOTE | 2025-05-25 17:30 | PC.NURSE ---
scar to the left groin
--- NOTE | 2025-05-25 17:33 | PC.NURSE ---
abrasion to right shoulder area
[2025-05-25 19:41] LABS: Troponin I 0.01 ng/ml (0.00-0.034)
[2025-05-26] VITALS (7 sets, daily range): BP systolic 114–149; BP diastolic 57–74; PULSE 54–90; RESP 14–18; TEMP 36.4–37.4; O2SAT 92–95; BMI 26.6
[2025-05-26] MEDS: CEFEPIME HCL 2 GM in 0.9 % SODIUM CHLORIDE 100 ML IV ×2 (02:12→14:22)
[2025-05-26 05:38] LABS: Hematocrit 35.4 % (42.0-52.0); Immature Granulocytes % 0 %; Mean Corpuscular HGB Conc 32.2 g/dL (31.8-35.4); Mean Corpuscular Hemoglobin 27.7 pg (27.0-31.2); Mean Corpuscular Volume 86.1 fl (80-94); Nucleated Red Blood Cells % 0 %; Platelet Count 184 K/mm3 (142-424); Red Blood Count 4.11 M/mm3 (4.60-6.20); Red Cell Distribution Width-SD 43.2 fL; White Blood Count 4.2 K/mm3 (4.8-10.8)
[2025-05-26 05:57] LABS: Alanine Aminotransferase 23 U/L (12-78); Albumin Level 3.4 g/dl (3.5-5.0); Albumin/Globulin Ratio 1.1 (1.1-1.8); Alkaline Phosphatase 76 U/L (38-126); Anion Gap 9.8 mEq/L (5-15); Aspartate Amino Transferase 33 U/L (17-59); Bilirubin,Total 0.5 mg/dl (0.2-1.3); Blood Urea Nitrogen 16 mg/dl (9-20); Calcium 8.5 mg/dl (8.4-10.2); Carbon Dioxide 25 mmol/L (22.0-30.0); Chloride 105 mmol/L (98-107); Creatinine Clearance Estimated 62 mL/min (50-200); Creatinine,Serum 0.80 mg/dl (0.66-1.25); Estimated Glomerular Filt Rate 92 ml/min (>60); GFR (African American) 111 ML/MIN (>60); Globulin 3.1 g/dL (1.3-3.2); Glucose 101 mg/dl (74-100); Magnesium 2.2 mg/dl (1.6-2.3); Potassium 3.8 mmoL/L (3.5-5.1); Sodium 136 mmol/L (136-145); Total Protein,Serum 6.5 g/dl (6.3-8.2)
--- NOTE | 2025-05-26 07:42 | P.CONPHA_ITS ---
Pharmacy Intervention Comments: VERIFIED HOME MED[facility]
--- NOTE | 2025-05-26 07:42 | HMH.PHAINT1 ---
Pharmacy Intervention Comments: VERIFIED HOME MEDICATION LIST US[facility]
--- NOTE | 2025-05-26 08:45 | HMH.PHAAMS2 ---
- Antimicrobial Stewardship Review culture & sensitivity review Stewardship interventions: culture & sensitivity review, reviewed - no change Comments: CULTURES PENDING, EMPIRIC THERAPY WITH CEFEPIME
--- NOTE | 2025-05-26 08:49 | SW/DCPLANNER ---
Addendum entered by Chacha Song 05/26/25 10:19: I have updated [facility] [place] that patient may be ready to return SNF level of care tomorrow. Original Note: Patient is currently SNF at [place]. Updated patient information has been faxed to Edgar [facility]sas/ [facility]. Per Edgar patient is currently on bedhold. CM will continue to follow up. Discharge date is unknown at this time.
--- NOTE | 2025-05-26 08:50 | EXP.ACUTE.PN ---
Subjective *Date: 05/26/25 *Time: 08:50 Interval history: Patient is a little more oriented this morning. Quicker to answer questions. is at bedside. He knows who she is. Knows who he is. She feels his mentation is improving but not quite back to baseline. No fevers overnight. No nausea or vomiting. Tolerating breakfast on rounds Medical Exam Vital signs and Labs for Last 24 Hours: Vital Signs Temp Pulse Pulse Resp BP BP Pulse Ox 05/26/25 08:08 98.6 F 90 14 136/72 94 L 05/26/25 06:59 05/26/25 05:00 05/26/25 04:00 62 125/57 L 94 L 05/26/25 03:18 05/26/25 01:00 05/26/25 00:04 54 L 114/62 92 L 05/25/25 23:10 05/25/25 21:00 05/25/25 20:10 92 L 05/25/25 20:01 98.4 F 68 16 116/71 96 05/25/25 19:00 05/25/25 17:00 05/25/25 16:18 98.4 F 64 18 152/73 H 95 05/25/25 16:04 98.1 F 74 19 160/85 H 05/25/25 16:00 98.4 F 80 17 182/104 H 92 L 05/25/25 15:49 64 92 L 05/25/25 13:01 77 16 139/83 94 L 05/25/25 12:35 98.9 F 68 18 153/73 H 100 O2 Del Method 05/26/25 08:08 Room Air 05/26/25 06:59 Room Air 05/26/25 05:00 Room Air 05/26/25 04:00 05/26/25 03:18 Room Air 05/26/25 01:00 Room Air 05/26/25 00:04 05/25/25 23:10 Room Air 05/25/25 21:00 Room Air 05/25/25 20:10 Room Air 05/25/25 20:01 Room Air 05/25/25 19:00 Room Air 05/25/25 17:00 Room Air 05/25/25 16:18 Room Air 05/25/25 16:04 Room Air 05/25/25 16:00 Room Air 05/25/25 15:49 Room Air 05/25/25 13:01 Room Air 05/25/25 12:35 Room Air Intake and Output 05/25/25 05/26/25 05/26/25 23:59 07:59 15:59 Intake Total 100 / 100 0 / 100 Output Total 0 / 0 Balance 100 / 100 0 / 100 Intake: Intake, Oral Amount 0 / 0 Intake, Total IV Amount 100 / 100 Cefepime HCl 2 gm In 0.9 % 100 / 100 Sodium Chloride 100 ml @ 200 mls/hr IV Q12H [facility] Rx#:[id number] Output: Output, Urine Amount 0 / 0 Other: Number of Unmeasured Voids 1 2 Number of Bowel Movements 2 Weight 79.832 kg 79.8 kg Patient Weight 05/26/25 23:59 Weight 79.8 kg Laboratory Results - last 24 hr 05/25/25 12:40: WBC 2.6 L, RBC 4.79, Hgb 12.8 L, Hct 40.9 L, MCV 85.4, MCH 26.7 L, MCHC 31.3 L, RDW 13.6, Plt Count 199, MPV 9.9, Neut % (Auto) 3.1 L, Lymph % (Auto) 59.7 H, [place] % (Auto) 34.1 H, Eos % (Auto) 2.3, Baso % (Auto) 0.8, Neut # (Auto) 0.1 L*, Lymph # (Auto) 1.5, [place] # (Auto) 0.9, Eos # (Auto) 0.1, Baso # (Auto) 0.0, Total Counted 100, Neutrophils % (Manual) 6 L, Lymphocytes % (Manual) 75 H, Monocytes % (Manual) 17 H, Eosinophils % (Manual) 1, Basophils % (Manual) 1.0, Platelet Estimate Normal, RBC Morphology Normal, PT 13.4 H, INR 1.23 H, Sodium 141, Potassium 4.0, Chloride 102, Carbon Dioxide 28, Anion Gap 15.0, BUN 16, Creatinine 1.00, Estimated Creat Clear 62, Estimated GFR 71, Est GFR ( Amer) 86, Glucose 137 H, Calcium 8.5, Magnesium 2.2, Total Bilirubin 0.5, AST 48, ALT 29, Alkaline Phosphatase 73, Troponin I < 0.01, NT-Pro-B Natriuret Pep 903 H, Total Protein 7.1, Albumin 3.6, Globulin 3.5 H, Albumin/Globulin Ratio 1.0 L, HCV Ab ARIA w/Rflx PCR Qn Negative, HIV Ag/Ab Combo Qual Negative 05/25/25 13:03: Ammonia < 9 L 05/25/25 13:11: Chlamy pneumoniae PCR Not detected, Adenovirus (PCR) Not detected, B. pertussis DNA (PCR) Not detected, Coronavirus OC43 (PCR) Not detected, Coronavirus HKU1 (PCR) Not detected, Coronavirus 229E (PCR) Not detected, SARS-CoV-2 (PCR) Not detected, Coronavirus NL63 (PCR) Not detected, Human Metapneumovir PCR Not detected, Influenza A (H1) PCR Not detected, Influ A (H1N1/09) PCR Not detected, Influenza A (H3) PCR Not detected, Influenza Type A (PCR) Not detected, Influenza Type B (PCR) Not detected, M. pneumoniae (PCR) Not detected, Parainfluenza 1 (PCR) Not detected, Parainfluenza 2 (PCR) Not detected, Parainfluenza 3 (PCR) Not detected, Parainfluenza 4 (PCR) Not detected, RSV (PCR) Not detected, Entero/Rhino (PCR) Not detected 05/25/25 13:16: Urine Color Yellow, Urine Appearance Clear, Urine pH 6.0, Ur Specific [place] 1.025, Urine Protein 2+ A, Urine Glucose (UA) Negative, Urine Ketones Trace, Urine Blood 2+ A, Urine Nitrate Positive A, Urine Bilirubin Negative, Urine Urobilinogen 0.2, Ur Leukocyte Esterase 2+ A, Urine RBC 5-10, Urine WBC 5-10, Ur Squamous Epith Cells 3-5, Urine Bacteria 1+, Urine Opiates Screen Negative, Urine Methadone Screen Negative, Ur Barbituates Screen Negative, Ur Phencyclidine Scrn Negative, Ur Amphetamines Screen Negative, U Benzodiazepines Scrn Negative, Urine Cocaine Screen Negative, U Marijuana (THC) Screen Negative 05/25/25 16:33: Troponin I 0.01 05/25/25 19:03: Troponin I 0.01 05/26/25 04:52: WBC 4.2 L D, RBC 4.11 L, Hct 35.4 L, MCV 86.1, MCH 27.7, MCHC 32.2, RDW 13.7, Plt Count 184, MPV 10.0, Neut % (Auto) 1.7 L, Lymph % (Auto) 63.1 H, [place] % (Auto) 30.5 H, Eos % (Auto) 4.0, Baso % (Auto) 0.7, Neut # (Auto) 0.1 L*, Lymph # (Auto) 2.7, [place] # (Auto) 1.3 H, Eos # (Auto) 0.2, Baso # (Auto) 0.0, Sodium 136, Potassium 3.8, Chloride 105, Carbon Dioxide 25, Anion Gap 9.8, BUN 16, Creatinine 0.80, Estimated Creat Clear 62, Estimated GFR 92, Est GFR ( Amer) 111 D, Glucose 101 H D, Calcium 8.5, Magnesium 2.2, Total Bilirubin 0.5, AST 33 D, ALT 23, Alkaline Phosphatase 76, Total Protein 6.5, Albumin 3.4 L, Globulin 3.1, Albumin/Globulin Ratio 1.1 I & O for Labs for Last 24 Hours: Intake & Output 05/23/25 05/24/25 05/25/25 05/26/25 23:59 23:59 23:59 23:59 Intake Total 100 / 100 100 / 100 Output Total 0 / 0 Balance 100 / 100 100 / 100 Weight 79.832 kg 79.8 kg Constitutional: Present no acute distress, average body habitus, chronically ill appearing and cooperative Comment:: Alopecia Respiratory: Present normal respiratory effort; Absent rhonchi, wheezes or crackles Cardiac: Present Reg Rate and Rhythm GI: Present normal bowel sounds; Absent tenderness Extremities: Present normal inspection and full ROM Skin: Present intact; Absent erythema Comment:: Skin breakdown on bottom with open wound through epidermis Neuro: Present Grossly Intact, alert, awake and moves all extremities Comment:: Oriented to self only. Assessment and Plan *Assessment and plan (1) UTI (urinary tract infection): Status: Acute Category: Medical Code(s): N39.0 - Urinary tract infection, site not specified (2) HTN (hypertension): Status: Acute Qualifiers: Hypertension type: essential hypertension Qualified Code(s): I10 - Essential (primary) hypertension Category: Medical Code(s): I10 - Essential (primary) hypertension (3) HLD (hyperlipidemia): Status: Acute Qualifiers: Hyperlipidemia type: unspecified Qualified Code(s): E78.5 - Hyperlipidemia, unspecified Category: Medical Code(s): E78.5 - Hyperlipidemia, unspecified (4) Memory loss: Status: Acute Category: Medical Code(s): R41.3 - Other amnesia (5) Acute metabolic encephalopathy: Status: Acute Category: Medical Code(s): G93.41 - Metabolic encephalopathy Plan 84-year-old male who presents from [place] due to worsening confusion. Found to have UTI. Discussed case with ER physician, request admission for IV antibiotics and monitoring improvement in mentation. I decided to admit for further care. Continuing cefepime. Problems addressed as follows: UTI: Metabolic encephalopathy Neutropenia - Patient's mentation decreased compared to baseline, most consistent with encephalopathy secondary to his infection. Slight movement today but still not back to baseline. - Urinalysis grossly abnormal with positive nitrate, leuk esterase, 5-10 white cells and 1+ bacteria. History of prostate cancer. - Continue cefepime 2 g IV twice daily - White count improved at 4.2, up from 2.6, ANC still 100. Platelets remain normal at 184, hemoglobin 12.8. Kidney function stable with BUN 16, creatinine 0.8. - Urine culture still pending. - CT of abdomen pelvis per my review with some inflammation of bladder wall consistent with chronic cystitis or acute infection Continue Eliquis 5 mg twice daily for PAD Continue bisoprolol 5 mg daily for hypertension Continue docusate 100 mg twice daily for chronic constipation continue melatonin 3 mg nightly as needed for insomnia continue prednisone daily 5 mg Continue pregabalin 100 mg twice daily for neuropathy and pain Continue tramadol 50 mg every 6 hours as needed for pain Repeat CBC, CMP, magnesium ordered for the morning Full code pending DNR paperwork from patient's for more nursing facility. Regular diet Eliquis as above
--- NOTE | 2025-05-26 09:19 | HMH.OTEV ---
OT Evaluation Rehab OT IP Evaluation Start: 05/25/25 17:27 Freq: ONCE Status: Active Protocol: Document 05/26/25 09:09 MILLI (Rec: 05/26/25 09:19 MILLI [id number]) Rehab OT IP Assessment Subjective History Per HPI: *Reason for visit:: confusion *History of present illness: Mr. Palacios is an 84-year-old male with history of metastatic prostate cancer, osteoporosis, on chronic anticoagulation with Eliquis, peripheral vascular disease hypertension, hyperlipidemia, memory impairment , cauda equina compression. Has history of neutropenia from chart review. Follows with oncology. He presented to the ER via EMS from his fdc ( [place]) with worsening generalized weakness and confusion over the past 2 to 3 days. Patient is significantly off his baseline mentation per family who is at bedside in the ER and nursing at his facility. He is usually cooperative, answers questions appropriately. In the ER, he is not cooperative with exam, not following instructions, responds to very few questions. Unable to answer questions about person place and time downstairs. Normally these are questions he knows the answers to and answers appropriately. Was reportedly recently treated for a UTI but his does not recall the antibiotic or exactly when. Additionally he is recently status post femoral-tibial bypass in March performed in [place] by vascular surgery for his PAD. Workup in the ER concerning for persistent UTI. Worsening neutropenia with neutrophil count of 100, white count 2 .6. Electrolytes and kidney function stable. Started on cefepime. Medicine consulted for further management of UTI, acute metabolic encephalopathy, and neutropenia On my evaluation after he arrived to the floor, patient knew his first name and date of but unable to answer any other questions. No family at bedside. Denies any pain. Appears chronically ill but in no acute distress. Subjective No. Pt was supine in bed when therapy arrived this AM. Pt's present for session. Pt refused to tell therapy name and . Pt's was able to report for pt that pt uses a RW for FM and usually has SBA for FM. reported that she assists in dressing pt and that [facility] was performing bed baths for pt. reported pt was last able to complete FM with RW on Saturday and has been confused and contrary ever since. Pt went from supine to EOB with Max A x2. Pt demo resistance during transfer. Therapy then attempted to complete STS with RW to adjust sheets on bed. Pt demo resistance with attempting STS even with Max encouragement from therapy and . Therapy then assisted in laying pt in bed as when therapy attempted to place gait belt on pt became more combative with therapy. Pt was Max A to move from EOB to supine position. Pt was able to assist in bed rolling as PT examined wound. Pt also had BM and rehabilitation therapy technician in cleaning up pt. Pt went from R/L side with Mod A x2. therapy adjusted pt in bed and left pt supine in bed with call light and all other needs within reach and bed alarm on. Objective Bed Mobility bed mobility-scooting,bed mobility - supine/sit Assist Level Maximum x 2 (75% assist) Decrease in No Endurance Rehab OT IP prob,goals,plan Problems Date of Evaluation: 05/26/25 OT IP Problems Bed Mobility,Transfers,Balance,Self care,Safety Rehab Potential Rehab Potential Good Equipment Needs Assistive Devices Rolling / Wheeled Walker Plan OT intervention Plan Bed Mobility,Transfers,Balance,Self care,Safety, Therapeutic Exercise OT Plan Frequency Daily Duration LOS Discharge Goals Bed Mobility Ability Assistance x1 Sit to Stand Chair Moderate x 1 (50% assist) Transfer Ability Chair Transfer Moderate x 1 (50% assist) Ability Chair Transfer Sit to/from Ambulatory Technique Chair Transfer Rolling Walker Assistive Devices Feeding Ability Assist with Tray Set Up Commode/Toilet Raised Toilet Seat,Grab Bars Transfer Assistive Devices Decrease in No Endurance Discharge Plan OT Discharge Plan At this time, pt presents below baseline in occupational performance and would benefit from skilled acute OT services while admitted at [facility]. Once medically stable and DC, pt able to return to [facility] skilled and receive OT services as reported pt was receiving skilled OT services while at [facility] to continue to improve overall functional occupational performance. Eval Complexity Eval Charge Codes 75893 - Moderate Complexity PHYSICIAN CERTIFICATION: I certify the specified therapy services for Nicko Baumann are required, authorized, and reviewed every 30 days.
--- NOTE | 2025-05-26 09:34 | HMH.PTEV ---
Physical Therapy Evaluation Rehab PT IP Evaluation Start: 05/25/25 17:27 Freq: ONCE Status: Active Protocol: Document 05/26/25 09:26 ISABELL (Rec: 05/26/25 09:32 ISABELL [id number]) Subjective/History History History Per H&P: Mr. Palacios is an 84-year-old male with history of metastatic prostate cancer, osteoporosis, on chronic anticoagulation with Eliquis, peripheral vascular disease hypertension, hyperlipidemia, memory impairment, cauda equina compression. Has history of neutropenia from chart review. Follows with oncology. He presented to the ER via EMS from his [facility] ( [place]) with worsening generalized weakness and confusion over the past 2 to 3 days. Patient is significantly off his baseline mentation per family who is at bedside in the ER and nursing at his facility. He is usually cooperative, answers questions appropriately. In the ER, he is not cooperative with exam, not following instructions, responds to very few questions. Unable to answer questions about person place and time downstairs. Normally these are questions he knows the answers to and answers appropriately. Was reportedly recently treated for a UTI but his does not recall the antibiotic or exactly when. Additionally he is recently status post femoral-tibial bypass in March performed in [place] by vascular surgery for his PAD. Workup in the ER concerning for persistent UTI. Worsening neutropenia with neutrophil count of 100, white count 2 .6. Electrolytes and kidney function stable. Started on cefepime. Medicine consulted for further management of UTI, acute metabolic encephalopathy, and neutropenia On my evaluation after he arrived to the floor, patient knew his first name and date of but unable to answer any other questions. No family at bedside. Denies any pain. Appears chronically ill but in no acute distress. Subjective Subjective Pt would not provide history. Pt resistive to care and evaluation. Pt's present and assisted with hx and encouraging pt throughout. Per pt's , this is not pt's baseline . Pt is currently at [facility] and receiving rehab services. Per pt's , pt able to ambulate with rollator and 1 person assist. [facility] How much help from another person do you currently need... Turning from your A lot back to your side while in a flat bed without using bedrails? Moving from lying on A lot back to sitting on the side of a flat bed without using bedrails? Moving to and from a A lot bed to a chair ( including a wheelchair)? Standing up from a A lot chair using your arms? (e.g., wheelchair, bedside chair) Walking in hospital A lot room? Climbing 3-5 steps A lot with a railing? Mobility Score 12 Mobility Level [facility] Mobility 4 Move to chair/commode Mobility Calculator Rehab PT IP Eval Objective Appearance Patient Behavior Uncooperative,Confused Difficulty following moderate instructions Ambulation Patient Able to No Ambulate Balance Ability to Arise Able, uses arms to help Sitting Balance Steady, safe Standing Balance Unsteady Transfers Bed Transfer Ability Maximum x 1 (75% assist) Sit to Stand Bed Maximum x 2 (75% assist) Transfer Ability Rehab PT IP prob,goals,plan Problems Date of Evaluation: 05/26/25 PT IP Problems Bed Mobility,Transfers,Gait,Balance,Self care,Safety Rehab Potential Rehab Potential Good Plan PT Intervention Plan Bed Mobility,Transfers,Gait,Balance,Self care,Safety, Therapeutic Exercise Other Intervention 1-2 times Plan PT Plan Frequency Daily Duration LOS Discharge Goals Bed Transfer Ability Moderate x 1 (50% assist) Sit to Stand Chair Moderate x 1 (50% assist) Transfer Ability Discharge Plan PT Discharge Plan Mobility assessment limited by pt not being willing to participate despite max VCs and encouragement from PT, OT, and pt's . Pt presents below his baseline in mobility and would benefit from skilled PT while at [facility] to prevent further functional decline. PT recommending pt continue rehab services upon d/c from [facility]. Eval Complexity Eval Charge Codes 38756 - Moderate Complexity PHYSICIAN CERTIFICATION: I certify the specified therapy services for Nicko Baumann are required, authorized, and reviewed every 30 days.
--- NOTE | 2025-05-26 09:42 | HMH.PTWOUND ---
Rehab Wound Evaluation Rehab IP Wound Evaluation Start: 05/25/25 17:27 Freq: ONCE Status: Active Protocol: Document 05/26/25 09:35 ISABELL (Rec: 05/26/25 09:41 ISABELL [id number]) Rehab PT Wound Assessment Subjective Subjective Pt agreeable to wound consult with max education and encouragement. Pt's reports most of pt's wounds have healed except for his bottom. Wound Right Sacrum Wound Type Pressure Ulcer Wound Staging Stage III Query Text:Stage I - Unbroken, red skin, no blanching. Stage II - Skin broken, superficial skin loss involving epidermis alone or also dermis. Partial loss of skin layers. Stage III - Pressure area involves epidermis, dermis and subcutaneous tissue, full thickness skin loss. Stage IV - Pressure area involves epidermis, subcutaneous tissue, bone and other supportive tissue. Full thickness skin loss with extensive destruction of underlying tissue and structures. Wound Length (cm) 1.3 Wound Width (cm) 1.0 Wound Depth (cm) 0.1 Wound Bed Appearance Beefy Red,[place] Percentage 100 Granulated (%) Wound Margins Well Defined Description Surrounding Tissue [place],Bright Red Appearance Wound Drainage Serosanguineous Description Drainage Amount Small Drainage Odor No Odor Dressing Status Changed Wound Topical Saline Irrigant Solution/Irrigant Primary Dressing Composite Wound Debridement Gauze,Mechanical Method Wound Debridement Minimal Amount of Tissue Removed Dressing Change Tolerated Well Patient Tolerance Plan/Recommendation Comment Pt presents with a small open pressure sore on his R sacral area. PT cleaned wound with saline and placed a boarded foam dressing to manage drainage and provide protection. PT recommending nursing staff continue dressing changes as needed and repositioning per protocol to prevent further skin breakdown. No further skilled wound care required at this time. Eval Complexity Eval Charge Codes 00361 - Moderate Complexity PHYSICIAN CERTIFICATION: I certify the specified therapy services for Nicko Baumann are required, authorized, and reviewed every 30 days.
--- NOTE | 2025-05-26 10:39 | PC.NURSE ---
Pt had been resting in bed this am, once patient woke up staff attempted to give pt his am meds. pt was initially agreeable, once meds were presented to patient he no longer wanted to take meds. attempted to off meds again 10 minutes after initial attempt. pt still refused.
[2025-05-26 10:46] LABS: Hypochromasia 1+; Total Cells Counted 100
[2025-05-26 11:02] LABS: Hemoglobin 11.2 g/dL (14.1-18.0)
[2025-05-26] MEDS: APIXABAN 5MG TABLET 5 MG PO (12:03)
[2025-05-26] MEDS: BISOPROLOL 5MG TABLET 5 MG PO (12:05)
[2025-05-26] MEDS: CLOPIDOGREL 75MG TAB 75 MG PO (12:06)
[2025-05-26] MEDS: PREGABALIN 100MG CAPSULE 100 MG PO (12:06)
[2025-05-26] MEDS: FUROSEMIDE 20MG TABLET 20 MG PO (12:06)
--- NOTE | 2025-05-26 15:47 | PC.NURSE ---
arrivedd by bed from ICU
--- NOTE | 2025-05-27 00:44 | PC.NURSE ---
went into the patents room to do 0000 vitals and turn him. The patient refused all interventions. we tried multiple approaches with him but he was very clear that he was not going to let us get his vitals or turn him.
[2025-05-27] MEDS: CEFEPIME HCL 2 GM in 0.9 % SODIUM CHLORIDE 100 ML IV (03:39)
[2025-05-27 04:00] VITALS: BP 157/74; PULSE 81; RESP 18; TEMP 37.2; O2SAT 96; BMI 26.2
--- NOTE | 2025-05-27 06:38 | PC.NURSE ---
Addendum entered by Sharron Nolen RN 05/27/25 06:56: pt is refusing am labs at this time, telling all staff to get the hell out Original Note: beginning of shift, pt was resistive to care. ref all care and combative to staff during brief changes. staff approached pt in a calm reassuring manner. allowed time for pt to rest, bed alarm on for pt safety. after a few hrs of sleep, reproached pt and was able to turn. gain v/s and administer and abx. pt has been pleasant the second half of shift. cb within reach. no c/o pain
--- NOTE | 2025-05-27 07:25 | EXP.DC.SUM ---
General Admission date:: 05/25/25 Discharge date: 05/27/25 HPI HPI HPI: Mr. Palacios is an 84-year-old male with history of metastatic prostate cancer, osteoporosis, on chronic anticoagulation with Eliquis, peripheral vascular disease hypertension, hyperlipidemia, memory impairment, cauda equina compression. Has history of neutropenia from chart review. Follows with oncology. He presented to the ER via EMS from his care home ([place]) with worsening generalized weakness and confusion over the past 2 to 3 days. Patient is significantly off his baseline mentation per family who is at bedside in the ER and nursing at his facility. He is usually cooperative, answers questions appropriately. In the ER, he is not cooperative with exam, not following instructions, responds to very few questions. Unable to answer questions about person place and time downstairs. Normally these are questions he knows the answers to and answers appropriately. Was reportedly recently treated for a UTI but his does not recall the antibiotic or exactly when. Additionally he is recently status post femoral-tibial bypass in March performed in [place] by vascular surgery for his PAD. Workup in the ER concerning for persistent UTI. Worsening neutropenia with neutrophil count of 100, white count 2.6. Electrolytes and kidney function stable. Started on cefepime. Medicine consulted for further management of UTI, acute metabolic encephalopathy, and neutropenia On my evaluation after he arrived to the floor, patient knew his first name and date of but unable to answer any other questions. No family at bedside. Denies any pain. Appears chronically ill but in no acute distress. Hospital Course Hospital Course Hospital Course: 84-year-old male who presents from [place] due to worsening confusion. Found to have UTI. Discussed case with ER physician, request admission for IV antibiotics and monitoring improvement in mentation. I decided to admit for further care. Initiated on cefepime. Urine culture growing gram-negative rods. Transition to Levaquin for ease of oral dosing. Discharge back to nursing facility for further care. Mentation improved. Problems addressed as follows: UTI, secondary to gram-negative rods Metabolic encephalopathy, resolved Neutropenia - Patient's mentation decreased compared to baseline, most consistent with encephalopathy secondary to his infection. Has showed slight improvement since admission. Is back to baseline by day of discharge per is at bedside. Feels he is doing significantly better. Urinalysis was grossly abnormal with positive nitrate, leuk esterase, 5-10 white cells and 1+ bacteria. History of prostate cancer. Initiated on cefepime. Urine culture growing gram-negative rods. Still awaiting final speciation and sensitivity. Will transition to Levaquin and complete 7 days total of antibiotics. Initial white count was low at 2.6 with ANC of 100. Has shown improvement. Would recommend continuing neutropenic precautions at nursing facility. CT of abdomen/pelvis was obtained during admission that showed some inflammation of bladder wall consistent with chronic cystitis or acute infection. If has recurrent UTI, would benefit from referral to urology for further evaluation. Severe protein calorie malnutrition: Nutrition was consulted and assisted with supplementation during admission. Continue supplementation with protein at nursing facility. Continue Eliquis 5 mg twice daily for PAD Continue bisoprolol 5 mg daily for hypertension Continue docusate 100 mg twice daily for chronic constipation continue melatonin 3 mg nightly as needed for insomnia continue prednisone daily 5 mg Continue pregabalin 100 mg twice daily for neuropathy and pain Continue tramadol 50 mg every 6 hours as needed for pain Total time spent on discharge 32 minutes in counseling, documentation, chart review, and direct care with patient. Exam Data for Last 24 hours Vital signs and Labs for Last 24 Hours: Temp Pulse Resp BP Pulse Ox O2 Del Method 98.9 F 81 18 157/74 H 96 Room Air 05/27/25 04:00 05/27/25 04:00 05/27/25 04:00 05/27/25 04:00 05/27/25 04:00 05/27/25 06:35 Laboratory Results - last 24 hr 05/25/25 13:16: Urine Color Yellow, Urine Appearance Clear, Urine pH 6.0, Ur Specific [place] 1.025, Urine Protein 2+ A, Urine Glucose (UA) Negative, Urine Ketones Trace, Urine Blood 2+ A, Urine Nitrate Positive A, Urine Bilirubin Negative, Urine Urobilinogen 0.2, Ur Leukocyte Esterase 2+ A, Urine RBC 5-10, Urine WBC 5-10, Ur Squamous Epith Cells 3-5, Urine Bacteria 1+ 05/26/25 04:52: WBC 4.2 L D, RBC 4.11 L, Hgb 11.2 L D, Hct 35.4 L, MCV 86.1, MCH 27.7, MCHC 32.2, RDW 13.7, Plt Count 184, MPV 10.0, Neut % (Auto) 1.7 L, Lymph % (Auto) 63.1 H, Brown % (Auto) 30.5 H, Eos % (Auto) 4.0, Baso % (Auto) 0.7, Neut # (Auto) 0.1 L*, Lymph # (Auto) 2.7, Brown # (Auto) 1.3 H, Eos # (Auto) 0.2, Baso # (Auto) 0.0, Total Counted 100, Neutrophils % (Manual) 4 L, Lymphocytes % (Manual) 67 H, Monocytes % (Manual) 26 H, Eosinophils % (Manual) 3, Platelet Estimate Normal, RBC Morphology Not Reportable, Hypochromasia 1+ I & O for Last 24 hours: Intake & Output 05/24/25 05/25/25 05/26/25 05/27/25 23:59 23:59 23:59 23:59 Intake Total 100 / 100 200 / 200 100 / 100 Output Total 600 / 600 350 / 350 Balance 100 / 100 -400 / -400 -250 / -250 Weight 79.832 kg 79.8 kg 78.653 kg Microbiology Reports for the Last 24 Hours: Microbiology 05/25/25 13:09 Blood Blood Culture - Preliminary NO GROWTH AFTER 24 HOURS 05/25/25 13:03 Blood Blood Culture - Preliminary NO GROWTH AFTER 24 HOURS 05/25/25 13:16 Urine,Catheterized Urine Culture - Preliminary Gram Negative Rods Constitutional Constitutional: no acute distress, average body habitus, chronically ill appearing and cooperative *Routine HEENT Exam Head: Present normocephalic Eye: Present EOMI and PERRL ENT: Present mucous membranes moist *Routine Neck Exam Neck: Present supple; Absent lymphadenopathy *Routine Respiratory Exam Respiratory: Present CTA bilaterally; Absent respiratory distress, rhonchi, stridor, wheezes or crackles *Routine Cardiovascular Exam Cardiovascular: Present RRR *Routine Abdominal Exam Abdominal: Present soft and normoactive bowel sounds; Absent tenderness *Routine Rectal Exam Patient deferred: visual exam *Routine Exam Patient deferred: penile exam *Routine Extremities Exam Extremities: Absent cyanosis, clubbing or edema *Routine Skin Exam Skin: Present intact and warm; Absent rash Comments: purpura/petechiae on chest from chest from telemetry leads. *Routine Neurological Exam Neurological: Present alert and moving all extremities; Absent altered mental status Comments: Back to baseline mentation per . Oriented to self. Responds to questions appropriately. Knows who he is and where he is. Results Data Completed and Pending Labs on day of discharge: Labs from last 24 hours 05/26/25 05/25/25 04:52 13:16 WBC 4.2 L D RBC 4.11 L Hgb 11.2 L D Hct 35.4 L MCV 86.1 MCH 27.7 MCHC 32.2 RDW 13.7 Plt Count 184 MPV 10.0 Neut % (Auto) 1.7 L Lymph % (Auto) 63.1 H Brown % (Auto) 30.5 H Eos % (Auto) 4.0 Baso % (Auto) 0.7 Neut # (Auto) 0.1 L* Lymph # (Auto) 2.7 Brown # (Auto) 1.3 H Eos # (Auto) 0.2 Baso # (Auto) 0.0 Total Counted 100 Neutrophils % (Manual) 4 L Lymphocytes % (Manual) 67 H Monocytes % (Manual) 26 H Eosinophils % (Manual) 3 Platelet Estimate Normal RBC Morphology Not Reportable Hypochromasia 1+ Urine Color Yellow Urine Appearance Clear Urine pH 6.0 Ur Specific [place] 1.025 Urine Protein 2+ A Urine Glucose (UA) Negative Urine Ketones Trace Urine Blood 2+ A Urine Nitrate Positive A Urine Bilirubin Negative Urine Urobilinogen 0.2 Ur Leukocyte Esterase 2+ A Urine RBC 5-10 Urine WBC 5-10 Ur Squamous Epith Cells 3-5 Urine Bacteria 1+ Preliminary micro results at discharge 05/25/25 13:09 Blood Culture - Preliminary Blood NO GROWTH AFTER 24 HOURS 05/25/25 13:03 Blood Culture - Preliminary Blood NO GROWTH AFTER 24 HOURS 05/25/25 13:16 Urine Culture - Preliminary Urine,Catheterized Gram Negative Rods DS: Diagnosis Discharge Diagnosis (1) UTI (urinary tract infection): Status: Acute Code(s): N39.0 - Urinary tract infection, site not specified Problem details: gram negative rods (2) HTN (hypertension): Status: Acute Code(s): I10 - Essential (primary) hypertension Qualifiers: Hypertension type: essential hypertension Qualified Code(s): I10 - Essential (primary) hypertension (3) HLD (hyperlipidemia): Status: Acute Code(s): E78.5 - Hyperlipidemia, unspecified Qualifiers: Hyperlipidemia type: unspecified Qualified Code(s): E78.5 - Hyperlipidemia, unspecified (4) Memory loss: Status: Acute Code(s): R41.3 - Other amnesia (5) Acute metabolic encephalopathy: Status: Acute Code(s): G93.41 - Metabolic encephalopathy (6) Severe protein-calorie malnutrition: Status: Acute Code(s): E43 - Unspecified severe protein-calorie malnutrition Meds Home Medications and Allergies Home Medications ?Medication ?Instructions ?Recorded ?Confirmed ?Type cyanocobalamin (vitamin B-12) 1,000 mcg PO DAILY Supplement 04/15/23 05/25/25 History 1,000 mcg tablet pregabalin 100 mg capsule 100 mg PO BID Pain 04/15/23 05/25/25 History acetaminophen 500 mg capsule 500 mg PO Q8H PRN Pain 10/11/23 05/25/25 History calcium citrate 200 mg PO DAILY 06/03/24 05/25/25 History cholecalciferol (vitamin D3) 50 50 mcg PO DAILY 06/03/24 05/25/25 History mcg (2,000 unit) capsule apixaban 5 mg tablet (Eliquis) 5 mg PO BID 05/13/25 05/25/25 History clopidogrel 75 mg tablet 75 mg PO DAILY 05/13/25 05/25/25 History melatonin 3 mg tablet 3 mg PO HS PRN SLEEP 05/13/25 05/25/25 History calcium 500 mg (as 1 tab PO DAILY 05/25/25 05/25/25 History carbonate)-vitamin D3 5 mcg (200 unit) tablet (Calcium 500 + D) docusate sodium 100 mg capsule 100 mg PO BID 05/25/25 05/25/25 History prednisone 5 mg tablet 5 mg PO DAILY 05/25/25 05/25/25 History sodium di- and 1 tab PO DAILY 05/25/25 05/25/25 History monophosphate-potassium phos monobasic 250 mg tablet ([id number]) tramadol 50 mg tablet 50 mg PO Q6H PRN PAIN 05/25/25 05/25/25 History bisoprolol fumarate 5 mg tablet 5 mg PO DAILY 05/26/25 05/26/25 History celecoxib 100 mg capsule 100 mg PO BID 05/26/25 05/26/25 History ferrous sulfate 325 mg (65 mg 325 mg PO DAILY 05/26/25 05/26/25 History iron) tablet (FeroSul) furosemide 20 mg tablet 20 mg PO DAILY 05/26/25 05/26/25 History oxybutynin chloride 10 mg 10 mg PO DAILY 05/26/25 05/26/25 History tablet,extended release 24 hr levofloxacin 750 mg tablet 750 mg PO 1100 4 days #4 tabs 05/27/25 Rx New Prescriptions to Start Prescriptions: levofloxacin Christopher Monroe Allergies Allergy/AdvReac Type Severity Reaction Status Date / Time No Known Allergies Allergy Verified 05/25/25 16:31 Discharge Plan Disposition Patient Disposition: Xfer SNF Condition: Good Discharge Order Discharge Orders: Discharge Order (Routine); Ordered 05/27/25 Ordered By: Christopher Monroe Follow up Plan Prescriptions/Medication Reconciliation: New levofloxacin 750 mg Tablet 750 mg PO 1100 4 Days Qty: 4 0RF Continued calcium citrate 200 mg (950 mg) tablet 200 mg PO DAILY cholecalciferol (vitamin D3) 50 mcg (2,000 unit) capsule 50 mcg PO DAILY cyanocobalamin (vitamin B-12) 1,000 mcg tablet 1,000 mcg PO DAILY pregabalin 100 mg capsule 100 mg PO BID acetaminophen 500 mg capsule 500 mg PO Q8H PRN (Reason: Pain) melatonin 3 mg tablet 3 mg PO HS PRN (Reason: SLEEP) clopidogrel 75 mg tablet 75 mg PO DAILY Eliquis 5 mg tablet 5 mg PO BID prednisone 5 mg Tablet 5 mg PO DAILY tramadol 50 mg Tablet 50 mg PO Q6H PRN (Reason: PAIN) docusate sodium 100 mg Capsule 100 mg PO BID [id number] 250 mg Tablet 1 tab PO DAILY calcium carbonate-vitamin D3 [Calcium 500 + D] 500 mg-5 mcg (200 unit) Tablet 1 tab PO DAILY bisoprolol fumarate 5 mg tablet 5 mg PO DAILY ferrous sulfate [FeroSul] 325 mg (65 mg iron) tablet 325 mg PO DAILY furosemide 20 mg tablet 20 mg PO DAILY celecoxib 100 mg capsule 100 mg PO BID oxybutynin chloride 10 mg tablet extended release 24hr 10 mg PO DAILY Problem Reconciliation Problems Reviewed?: Yes Patient Discharge Instructions ACTIVITY: Continue current activity DIET: continue same diet Patient Instructions: Urinary Tract Infection Print Language: [place] Providers Primary Care Provider: Josee Preciado Admit Provider: Christopher Monroe Attending Provider: Christopher Monroe
[2025-05-27 08:00] VITALS: BP 133/68; PULSE 90; RESP 17; TEMP 36.5; O2SAT 95
[2025-05-27] MEDS: APIXABAN 5MG TABLET 5 MG PO (10:45)
[2025-05-27] MEDS: CLOPIDOGREL 75MG TAB 75 MG PO (10:46)
[2025-05-27] MEDS: DOCUSATE SODIUM 100 MG CAPSULE PO (10:46)
[2025-05-27] MEDS: FUROSEMIDE 20MG TABLET 20 MG PO (10:46)
[2025-05-27] MEDS: BISOPROLOL 5MG TABLET 5 MG PO (10:46)
[2025-05-27] MEDS: PREGABALIN 100MG CAPSULE 100 MG PO (10:47)
== END 2025-05-27 11:38 ==
LOC: ER 15:41 → ICU 15:49 → 2ND 05-26 15:00
PROVIDERS: Physician Assistant; Admitting Provider Internal Medicine Adolescent Medicine; Emergency Provider Student in an Organized Health Care Education/Training Program; PCP Nurse Practitioner Family; Visit Provider Internal Medicine Adolescent Medicine
DX: N39.0 Urinary tract infection, site not specified (principal); E78.5 Hyperlipidemia, unspecified; R41.3 Other amnesia; G93.41 Metabolic encephalopathy; E43 Unspecified severe protein-calorie malnutrition; I25.10 Atherosclerotic heart disease of native coronary artery without angina pectoris; Z87.891 Personal history of nicotine dependence; G47.33 Obstructive sleep apnea (adult) (pediatric); Z85.46 Personal history of malignant neoplasm of prostate; Z95.5 Presence of coronary angioplasty implant and graft; Z79.899 Other long term (current) drug therapy; Z79.01 Long term (current) use of anticoagulants; M81.0 Age-related osteoporosis without current pathological fracture; I73.9 Peripheral vascular disease, unspecified; I65.22 Occlusion and stenosis of left carotid artery; I11.9 Hypertensive heart disease without heart failure; I70.1 Atherosclerosis of renal artery; I70.8 Atherosclerosis of other arteries
CPT/HCPCS: 0223U; 36415; 70450; 70496; 70498; 71045; 71275; 72125; 74174; 80053; 80307; 81001; 82140; 83735; 83880; 84484; 85007; 85025; 85027; 85610; 86803; 87040; 87086; 87088; 87186; 87389; 93005; 97162; 97166; 99285; G0378; J0692; J7512; Q9967

== ENCOUNTER 2025-06-09 09:59 | Outpatient (CLI) | payer MEDICARE, OTHER, SELFPAY ==
[2025-06-09 10:37] LABS: Hematocrit 39.6 % (42.0-52.0); Hemoglobin 12.2 g/dL (14.1-18.0); Immature Granulocytes % 0 %; Mean Corpuscular HGB Conc 30.8 g/dL (31.8-35.4); Mean Corpuscular Hemoglobin 26.8 pg (27.0-31.2); Mean Corpuscular Volume 87.0 fl (80-94); Nucleated Red Blood Cells % 0 %; Platelet Count 208 K/mm3 (142-424); Red Blood Count 4.55 M/mm3 (4.60-6.20); Red Cell Distribution Width-SD 46.1 fL; White Blood Count 4.3 K/mm3 (4.8-10.8)
[2025-06-09 11:35] LABS: Alanine Aminotransferase 16 U/L (12-78); Albumin Level 3.7 g/dl (3.5-5.0); Albumin/Globulin Ratio 1.3 (1.1-1.8); Alkaline Phosphatase 69 U/L (38-126); Anion Gap 11.8 mEq/L (5-15); Aspartate Amino Transferase 26 U/L (17-59); Bilirubin,Total 0.4 mg/dl (0.2-1.3); Blood Urea Nitrogen 23 mg/dl (9-20); Calcium 8.8 mg/dl (8.4-10.2); Carbon Dioxide 30 mmol/L (22.0-30.0); Chloride 105 mmol/L (98-107); Creatinine,Serum 0.90 mg/dl (0.66-1.25); Estimated Glomerular Filt Rate 80 ml/min (>60); GFR (African American) 97 ML/MIN (>60); Globulin 2.9 g/dL (1.3-3.2); Glucose 160 mg/dl (74-100); Potassium 3.8 mmoL/L (3.5-5.1); Sodium 143 mmol/L (136-145); Total Protein,Serum 6.6 g/dl (6.3-8.2)
== END 2025-06-09 23:59 | disposition home or self-care (01) ==
LOC: LAB 10:00
PROVIDERS: PCP Nurse Practitioner Family; Visit Provider Internal Medicine Medical Oncology
DX: D72.819 Decreased white blood cell count, unspecified (principal)
CPT/HCPCS: 36415; 80053; 85025